=== PATIENT | male | born 1960 | race Caucasian/White ===

== ENCOUNTER 2022-08-25 14:18 | Outpatient (CLI) | payer MEDICARE, SELFPAY ==
--- OUTSIDE RECORDS SUMMARY | 2022-08-25 14:23 | XMS_ITS | Encounter Summary ---
:1960 Author Organization [place] Address [address] [facility] [place] [address] Care Team Providers Name Role Phone Sammie Salguero Unavailable [phone] Guru Perry Conrad MD Unavailable + Melissa Waite PA-C Primary Care Provider [phone] Pee Ch MD Unavailable Encounter Details Date Type Department Care Team Description 11/29/2021 Travel Social History Tobacco Use Types Packs/Day Years Used Date Current Every Day Smoker 1 28 Smokeless Tobacco: Never Used Alcohol Use Standard Drinks/Week Comments Yes 1.7 (1 standard drink = 0.6 oz pure alco hol) Sex Assigned at Date Recorded Not on file COVID-19 Exposure Response Date Recorded In the last month, have you been in contact with No / Unsure 11/29/2021 9:40 AM 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 documented as of this encounter Plan of Treatment Not on filedocumented as of this encounter Visit Diagnoses Not on filedocumented in this encounter Care Teams Steam Generating Powerplant Mechanic Relationship Specialty Start Date End Date Melissa Waite, PCP - General Physician Business Taxes Specialist 10/26/21 [facility] [address] [place] [address] Sammie Salguero Referring Physician 10/16/16 [place] [address] [place] [address] Guru BRITNEY Conrad Gastroenterology 10/16/16 Perry Rasmussen MD [address] [place], [place] [id number] Pee Ch MD Assigned Pulmonology 11/27/21 04/14/[address] [place] [address] [id number] documented as of this encounter
--- OUTSIDE RECORDS SUMMARY | 2022-08-25 14:23 | XMS_ITS ---
:1960 Author Care Team Providers Name Role Phone LAUREN PHILIP [facility] Primary Care Provider [phone] Allergies Code Code System Name Reaction Severity Status Onset NKDA ? Medications Name Status Start Date Stop Date ? ? atenolol 25 mg tablet Active ? Not availa ble Breo Ellipta 100 mcg-25 mcg/dose powder for inhalation Active ? Not available Creon 24,000-76,000-120,000 unit capsule,delayed release Active ? Not available Incruse Ellipta 62.5 mcg/actuation powder for inhalation Active ? Not available levofloxacin 500 mg tablet Active ? Not a vailable lisinopril 20 mg tablet Active ? Not avai lable ondansetron 4 mg disintegrating tablet Active ? Not available oxycodone 5 mg tablet Active ? Not availa ble oxycodone-acetaminophen 5 mg-325 mg tablet Active ? Not available tamsulosin 0.4 mg capsule Active ? Not av ailable TAKE 1 CAPSULE BY MOUTH EVERY DAY Ventolin HFA 90 mcg/actuation aerosol inhaler Active ? Not available Problems None recorded. Procedures None recorded. Results Lab Results None recorded. Past Encounters None recorded. Social History Tobacco Smoking Status Current Every Day Smoker Vaccine List None recorded. Plan of Care Reminders Provider Appointments None recorded. ? ? Lab None recorded. ? ? Referral None recorded. ? ? Procedures None recorded. ? ? Surgeries None recorded. ? ? Imaging None recorded. ? ? Vitals 07/07/2020 09:50AM ESTABLISHED 20 Height Weight BMI 5 ft 8 in 97 lbs 14.7 kg/m2 06/08/2020 03:30PM ESTABLISHED PHONE VISIT 20 Height Weight BMI 5 ft 8 in 97 lbs 14.7 kg/m2
--- OUTSIDE RECORDS SUMMARY | 2022-08-25 14:23 | XMS_ITS | Encounter Summary ---
:1960 Author Organization [place] Address [address] [facility] [place] [address] Care Team Providers Name Role Phone [facility] Unavailable [phone] Guru Perry Conrad MD Unavailable + Melissa Waite PA-C Primary Care Provider Encounter Details Date Type Department Care Team Description 07/05/2022 Travel Social History Tobacco Use Types Packs/Day Years Used Date Current Every Day Smoker 1 28 Smokeless Tobacco: Never Used Alcohol Use Standard Drinks/Week Comments Yes 1.7 (1 standard drink = 0.6 oz pure alco hol) Sex Assigned at Date Recorded Not on file COVID-19 Exposure Response Date Recorded In the last 10 days, have you been in contact with No / Unsu re 07/05/2022 9:09 AM CDT someone who was confirmed or suspected to have Coronavirus/COVID-19? documented as of this encounter Plan of Treatment Not on filedocumented as of this encounter Visit Diagnoses Not on filedocumented in this encounter Care Teams Technical Sales Engineer Relationship Specialty Start Date End Date Melissa Waite, PCP - General Physician Suede Cleaner 10/26/21 [facility] [address] [place] [address] [facility] Referring Physician 10/16/16 [address] [place] [address] Guru BRITNEY Conrad Gastroenterology 10/16/16 Perry Rasmussen MD [address] [place] [id number] documented as of this encounter
--- OUTSIDE RECORDS SUMMARY | 2022-08-25 14:23 | XMS_ITS | Encounter Summary ---
:1960 Author Organization [place] Address [address] [facility] [place] [address] Care Team Providers Name Role Phone [facility], Manuelkatherine Palermo Unavailable [phone] Guru Perry Conrad MD Unavailable + Melissa Waite PA-C Primary Care Provider Pee Ch MD Unavailable Reason for Referral Diagnostic Imaging CT Scan (Routine) - Closed Specialty Diagnoses / Procedures Referred By Contact Refer red To Contact Diagnoses Hydropneumothorax Pee Ch MD Procedures CT Chest w/o Contrast [address] [place], [place] [address] Referral ID Status Reason Start Date Expiration Date Visits Requ ested Visits Authorized [id number] Closed 11/23/2021 11/23/2022 1 1 MAKER Reason for Visit Diagnostic Imaging CT Scan (Routine) - Closed Specialty Diagnoses / Procedures Referred By Contact Refer red To Contact Diagnoses Hydropneumothorax Pee Ch MD Procedures CT Chest w/o Contrast [address] [place], [place] [address] Referral ID Status Reason Start Date Expiration Date Visits Requ ested Visits Authorized [id number] Closed 11/23/2021 11/23/2022 1 1 Encounter Details Date Type Department Care Team Description 11/29/[address] 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 documented as of this encounter Medications at Time of Discharge Medication Sig Dispensed Refills Start Date End Date albuterol (PROAIR Inhale 2 puffs into 0 HFA/PROVENTIL the lungs every 6 HFA/VENTOLIN HFA) 108 (90 hours as needed for Base) MCG/ACT inhaler shortness of breath / dyspnea or wheezing aspirin (ASA) 325 MG EC Take 325 mg by mouth 0 tablet daily atenolol (TENORMIN) 25 MG Take 25 mg by mouth 0 tablet daily (with dinner) Lhotpmbyule-Oqsjdelga-Twr Inhale 1 puff into the 0 anterol (TRELEGY ELLIPTA) lungs At Bedtime 100-62.5-25 MCG/INH oral inhaler lisinopril (ZESTRIL) 20 Take 20 mg by mouth 0 MG tablet daily (with dinner) multivitamin w/minerals Take 1 tablet by mouth 0 04/23/2020 (THERA-VIT-M) daily tabletIndications: Alcohol-induced acute pancreatitis without infection or necrosis tamsulosin (FLOMAX) 0.4 Take 0.4 mg by mouth 0 MG capsule At Bedtime documented as of this encounter Plan of Treatment Not on filedocumented as of this encounter Procedures Procedure Name Priority Date/Time Associated Diagnosis Comme nts CT CHEST W/O Routine 11/29/2021 9:54 AM Hydropneumothorax Resu lts for this CONTRAST LAP MAKER procedure are i n the results section. documented in this encounter Results CT Chest w/o Contrast (11/29/2021 9:54 AM LAP MAKER) Anatomical Region Laterality Modality Chest, SUBRAD CT BODY, UMP CT CHEST, RAD CT Computed Tomography Specimen (Source) Anatomical Location Collection Method / Collectio n Time Received Time / Laterality Volume Impressions 11/29/2021 11:21 AM LAP MAKER IMPRESSION: 1. ??Small right hydropneumothorax is no norm, smaller in volume. 2. ??Continued prominent aspiration and mucus impaction leading to the right lung base. 3. ??Rounded opacity at the right lower lobe could be rounded atelectasis but underlying focal airspac e disease not excluded. There is also stable nodular opacification at the lingula and an irregular stable nodule at the right upper lobe. N eoplasm is not excluded. Recommend follow-up CT chest in 3 months . 4. ??Emphysema. 5. ??Included upper abdominal images cristiano ws the new finding of a subcapsular cystic collection along the anterior left liver. Adjacent to the left liver at the upper abdomen i s an indeterminant complex focal structure that could be complex fl uid versus an abnormal mass. CT abdomen could provide further assessm ent, ideally with intravenous contrast if able. VARSHA VARGHESE MD Narrative 11/29/2021 11:[address] CHEST WITHOUT CONTRAST 11/29/2021 9:54 AM CLINICAL HISTORY: COPD, surveillance; Hy dropneumothorax. TECHNIQUE: CT chest without IV contrast. Multiplanar reformats were obtained. Dose reduction techniques were used. CONTRAST: None. COMPARISON: CT chest 10/26/2021. FINDINGS: LUNGS AND PLEURA: Previously noted right pneumothorax persists but is smaller in volume. A few bubbles of righ t-sided pleural gas persists. Small right pleural fluid is smaller in volume. No left effusion. No left pneumothorax. Diffuse emphysema. Se carmen aspiration with mucus impaction again identified leading to th e right lung base. Rounded opacity may be rounded atelectasis versu s focal consolidation posterior medial right lower lobe measur ing 3.2 cm series 4 image 224. Stable mildly irregular nodule right upp er lobe measuring 0.6 cm series 4 image 62. A nodular opacity james ng the medial lingular area is stable measuring 2.2 cm series 4 image 2 14. MEDIASTINUM/AXILLAE: No acute thoracic a ortic abnormality. Moderate thoracic aortic calcifications. No suspi cious lymph nodes can be seen at unenhanced scanning. CORONARY ARTERY CALCIFICATION: Severe. UPPER ABDOMEN: Small ascites. There is a new subcapsular cystic structure along the anterior left liver measuring 3.1 cm series 3 image 152. Just towards the left of this , adjacent to the left liver is mildly increased density indeterminan t collection that is approximately 5.1 cm series 3 image 153. Pancreas calcifications noted. MUSCULOSKELETAL: No acute abnormality. T here are subacute healed rib fractures. Procedure Note Varsha Varghese MD - 11/29/2021Forma tting of this note might be different from the original. CT CHEST WITHOUT CONTRAST 11/29/2021 9:54 AM CLINICAL HISTORY: COPD, surveillance; Hy dropneumothorax. TECHNIQUE: CT chest without IV contrast. Multiplanar reformats were obtained. Dose reduction techniques were used. CONTRAST: None. COMPARISON: CT chest 10/26/2021. FINDINGS: LUNGS AND PLEURA: Previously noted right pneumothorax persists but is smaller in volume. A few bubbles of righ t-sided pleural gas persists. Small right pleural fluid is smaller in volume. No left effusion. No left pneumothorax. Diffuse emphysema. Se carmen aspiration with mucus impaction again identified leading to th e right lung base. Rounded opacity may be rounded atelectasis versu s focal consolidation posterior medial right lower lobe measur ing 3.2 cm series 4 image 224. Stable mildly irregular nodule right upp er lobe measuring 0.6 cm series 4 image 62. A nodular opacity james ng the medial lingular area is stable measuring 2.2 cm series 4 image 2 14. MEDIASTINUM/AXILLAE: No acute thoracic a ortic abnormality. Moderate thoracic aortic calcifications. No suspi cious lymph nodes can be seen at unenhanced scanning. CORONARY ARTERY CALCIFICATION: Severe. UPPER ABDOMEN: Small ascites. There is a new subcapsular cystic structure along the anterior left liver measuring 3.1 cm series 3 image 152. Just towards the left of this , adjacent to the left liver is mildly increased density indeterminan t collection that is approximately 5.1 cm series 3 image 153. Pancreas calcifications noted. MUSCULOSKELETAL: No acute abnormality. T here are subacute healed rib fractures. IMPRESSION: 1. Small right hydropneumothorax is note d, smaller in volume. 2. Continued prominent aspiration and mu cus impaction leading to the right lung base. 3. Rounded opacity at the right lower lo be could be rounded atelectasis but underlying focal airspac e disease not excluded. There is also stable nodular opacification at the lingula and an irregular stable nodule at the right upper lobe. N eoplasm is not excluded. Recommend follow-up CT chest in 3 months . 4. Emphysema. 5. Included upper abdominal images shows the new finding of a subcapsular cystic collection along the anterior left liver. Adjacent to the left liver at the upper abdomen i s an indeterminant complex focal structure that could be complex fl uid versus an abnormal mass. CT abdomen could provide further assessm ent, ideally with intravenous contrast if able. VARSHA VARGHESE MD Pee Ch MD IMG CT ORDERABLES documented in this encounter Visit Diagnoses Diagnosis Hydropneumothorax Other specified forms of effusion, excep t tuberculous documented in this encounter Care Teams Chrome Plater Relationship Specialty Start Date End Date Melissa Waite, PCP - General Physician Side Hemmer 10/26/21 [facility] [address] [place] [address] Sammie Salguero Referring Physician 10/16/16 [place] [address] [place] [address] Guru BRITNEY Conrad Gastroenterology 10/16/16 Perry Rasmussen MD [address] [place] [address] [id number] Pee Ch MD Assigned Pulmonology 11/27/21 04/14/[address] [place] [address] [phone] documented as of this encounter
--- OUTSIDE RECORDS SUMMARY | 2022-08-25 14:23 | XMS_ITS | Clinical Summary ---
:1960 Author Organization [facility] [place] [address] Care Team Providers Name Role Phone Denia Paige MD Unavailable Pcp, No Primary Care Provider Unavailable Allergies No known active allergies Medications Medication Sig Dispensed Refills Start Date End Date Status aspirin enteric coated Take 1 tablet by 0 04/19/2011 Active 81 mg tablet mouth once daily with a meal. albuterol HFA Inhale 1-2 Puffs 1 Inhaler 1 07/28/2015 Active (VENTOLIN HFA) 90 by mouth every 4 mcg/actuation hours if needed. inhalerIndications: COPD exacerbation (HC) albuterol-ipratropium Inhale 3 mL via a 1 box 5 10/29/2015 Active (DUONEB) (2.5-0.5 mg) nebulizer every 6 in 3 mL NEBULIZATION hours if needed solutionIndications: for Wheezing. Chronic obstructive Patient will call pulmonary disease, when he needs unspecified COPD type refills (HC) umeclidinium (INCRUSE Inhale 62.5 mcg by 30 Each 5 5 Active ELLIPTA) 62.5 mouth once daily. mcg/actuation Patient will call dsdvIndications: when he needs Chronic obstructive refills pulmonary disease, unspecified COPD type (HC) ibuprofen (ADVIL; Take 200-400 mg by 0 09/18/2016 Active MOTRIN) 200 mg tablet mouth every 6 hours if needed. Multivits,Ca,Minerals- Take 1 tablet by 0 09/18/2016 Active Iron-FA (THERA M PLUS, mouth once daily. FERROUS FUMARAT,) 9 mg iron-400 mcg tablet nicotine 21 mg/24 hr Apply 1 Patch on 0 Active (NICODERM; HABITROL) dry, clean, 21 mg/24 hr patch hairless skin every 24 hours. Thiamine HCl powd Take 100 mg by 0 Active mouth once daily. fluticasone Inhale 1 Puff by 0 A ctive furoate-vilanterol mouth once daily. (BREO ELLIPTA) 100-25 mcg/dose inhaler Cholecalciferol, Take 1,000 Units 0 Active Vitamin D3, 400 unit by mouth once capsule daily. magnesium oxide Take 1 tablet by 90 tablet 3 11/01/2016 Active (MAG-OX 400) 400 mg mouth once daily. tabletIndications: Visit for well marlin health check CREON 24,000-76,000 0 12/01/2016 Active -120,000 unit Delayed-Release capsule VITAMIN D 1,000 unit TAKE ONE TABLET BY 90 tablet 2 04/04/2018 Active tabletIndications: MOUTH EVERY DAY Vitamin D deficiency atenoloL (TENORMIN) 25 TAKE 1 TABLET BY 30 tablet 0 11/25/2020 Active mg tabletIndications: MOUTH EVERY DAY Essential hypertension lisinopriL (PRINIVIL; TAKE 1 TABLET BY 30 tablet 0 11/25/2020 Active ZESTRIL) 20 mg MOUTH EVERY DAY tabletIndications: Essential hypertension Active Problems Problem Noted Date Vitamin D deficiency 10/09/2014 Stroke 04/19/2013 Overview: Residual effects on R side COPD exacerbation 02/15/2012 Overview: Followed by pulmonary Tobacco use disorder 04/20/2009 HYPERTENSION - ESSENTIAL 11/16/2005 TORTICOLLIS 11/16/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 Resolved Problems Problem Noted Date Resolved Date Alcohol use 04/20/2009 10/09/2016 Immunizations Name Administration Dates Next Due COVID-19 vaccine (Moderna 03/23/2021, 02/23/2021 100mcg/0.5mL) PF, MDV COVID-19 vaccine (Moderna Booster 11/15/2021 50mcg/0.25mL) PF, MDV Influenza, IIV3 (Age >=3 years) 09/08/2016 Influenza, IIV4 10/29/2019, 01/31/2018, 10/07/2015, 10/08/2014 Pneumococcal Poly,23-Valent 08/26/2016 (Pneumovax) Tdap 03/11/2013 Family History Medical History Relation Name Comments Other Father lung cancer Hypertension Mother Other Mother dementia Genetic Other Sister breast ca Cancer-breast Sister Relation Name Status Comments Father Mother Alive Other Sister Alive Social History Tobacco Use Types Packs/Day Years Used Date Current Every Day Smoker 0.5 37 Sta rted: 11/19/1980 Smokeless Tobacco: Never Used Tobacco Cessation: Ready to Quit: No; Co unseling Given: Yes Comments: using gum 05/21 down to less laury n 10 cigs a day. Alcohol Use Standard Drinks/Week Comments No 0 (1 standard drink = 0.6 oz pure alcoho l) Sex Assigned at Date Recorded Not on file Obstetrics History Last Filed Vital Signs Vital Sign Reading Time Taken Comments Blood Pressure 168/96 10/29/2019 10:52 AM LOCAL TELEPHONE OPERATOR Pulse 82 10/29/2019 10:36 AM LOCAL TELEPHONE OPERATOR Temperature 36.7 ??C (98 ??F) 05/21/2013 8:54 AM CDT Respiratory Rate 28 04/01/2013 2:26 PM CDT Oxygen Saturation 95% 10/29/2015 8:55 AM LOCAL TELEPHONE OPERATOR Inhaled Oxygen Concentration - - Weight 49.9 kg (110 lb) 10/29/2019 10:36 AM LOCAL TELEPHONE OPERATOR Height 175.3 cm (5' 9.02) 10/29/2019 10:36 AM LOCAL TELEPHONE OPERATOR Body Mass Index 16.24 10/29/2019 10:36 AM LOCAL TELEPHONE OPERATOR Plan of Treatment Health Maintenance Due Date Last Done Comments Hepatitis C screening for age 0201/16/1978 18-79 Colonoscopy through age 75 2005 Zoster (shingles) series for age 0201/16/2010 50+ (1 of 2) BMI (ht and wt on same day) for 10/29/2020 10/29/2019, 03/20, age 18+ 01/31/2018, Additional history exists Depression screening for age 12+ 10/29/2020 10/29/2019, COVID-19 vaccine series (4 - 03/16/2022 11/15/2021, 021, Booster for Moderna series) 02/23/2021 Influenza for age 50-64 07/20/2022 10/29/2019, 01/31/2018, 09/08/2016, Additional history exists Tetanus booster 03/11/2023 03/11/2013 Lipids for age 45-75 10/29/2024 10/29/2019, 01/31/2018, 10/08/2014, Additional history exists Tdap Completed 03/11/2013 Results Not on filefrom Last 3 Months Insurance Payer Benefit Plan / Subscriber ID Effective Dates Phone Addre ss Type Group MEDICARE - PB MEDICARE PB [id number] 2015-Presen ATT N: CLAIMS USE ONLY ONLY t [address] [place] [address] Care Teams Glass Lined Tank Repairer Relationship Specialty Start Date End Date Pcp, No PCP - General 02/14/21 . Denia Paige MD Pulmonary Medicine 03/11/13
--- OUTSIDE RECORDS SUMMARY | 2022-08-25 14:23 | XMS_ITS | Encounter Summary ---
:1960 Author Organization [place] Address [address] [facility] [place] [address] Care Team Providers Name Role Phone Clinic, Sammie Geyser Unavailable [phone] Guru Perry Conrad MD Unavailable + Melissa Waite PA-C Primary Care Provider [phone] Reason for Referral Diagnostic Imaging CT Scan (Routine) - Closed Specialty Diagnoses / Procedures Referred By Contact Refer red To Contact Diagnoses Cigarette nicotine dependence without complication Other specified pleural conditions Other nonspecific abnormal finding of lung field Steven Mathew MD Procedures CT Chest w/o Contrast [facility] [address] [address] Referral ID Status Reason Start Date Expiration Date Visits Requ ested Visits Authorized [id number] Closed 06/26/2022 06/26/2023 1 1 Reason for Visit Diagnostic Imaging CT Scan (Routine) - Closed Specialty Diagnoses / Procedures Referred By Contact Refer red To Contact Diagnoses Cigarette nicotine dependence without complication Other specified pleural conditions Other nonspecific abnormal finding of lung field Steven Mathew MD Procedures CT Chest w/o Contrast [address] [address] Referral ID Status Reason Start Date Expiration Date Visits Requ ested Visits Authorized [id number] Closed 06/26/2022 06/26/2023 1 1 Encounter Details Date Type Department Care Team Description 07/05/[address] [facility] Steven Mathew nicotine dependence without complication; Jaguar Hawkins MD Other specified pleural conditions; [id number] [facility] L[facility]G [facility] Other nonspecific abnormal finding of vince ng field [address] [place] [address] [place], [place] [phone] [address] Social History Tobacco Use Types Packs/Day Years [...] have Coronavirus/COVID-19? documented as of this encounter Medications at [...] by mouth 0 tablet daily (with dinner) Yhtwpymsgal-Xjwlijxtr-Sjb Inhale 1 puff into the 0 anterol [...] Diagnosis Comme nts CT CHEST W/O Routine 07/05/2022 9:32 AM Cigarette nicotine Res ults for this CONTRAST CDT dependence without procedure are in complication the results Other specified section. pleural conditio ns Other nonspecific abnormal finding of lung field documented in this encounter Results CT Chest w/o Contrast (07/05/2022 9:32 AM CDT) Anatomical Region Laterality Modality Chest, SUBRAD CT BODY, UMP CT CHEST, RAD CT Computed Tomography Specimen (Source) Anatomical Location Collection Method / Collectio n Time Received Time / Laterality Volume Impressions 07/05/2022 9:59 AM CDT IMPRESSION: 1. ??New left apical nodular opacity robert suring 13 x 8 mm, indeterminate. Other pulmonary nodular o pacities are stable. Right lower lobe rounded opacity, which may be in a focus of rounded atelectasis is stable. A follow-up CT in 3 months is suggested to ensure stability. 2. ??Decreased now trace right pleural e ffusion. UMA PETERS MD Narrative 07/05/2022 9:[address] CHEST W/O CONTRAST 07/05/2022 9:32 AM CLINICAL HISTORY: Cigarette nicotine dep endence without complication; Other specified pleural conditions; Othe r nonspecific abnormal finding of lung field TECHNIQUE: CT chest without IV contrast. Multiplanar reformats were obtained. Dose reduction techniques were used. CONTRAST: None. COMPARISON: 10/26/2021, 11/29/2020 FINDINGS: LUNGS AND PLEURA: Moderate to severe stephen trilobular emphysema with bullous changes in the left lower lobe a t the lung base. New left apical spiculated nodular opacity measur ing 13 x 8 mm (series 6, image 29). Stable right upper lobe 7 mm irregu lar nodular opacity (image 52). Extensive secretions and bronchial mucous plugging in the right middle lobe and right lower lobe at the lung base. Adjacent rounded pleural-based opacity with crowding of b ronchi leading to the opacity and architectural distortion is stable, measuring 30 x 20 mm (series 6, image 232), previously 32 x 32 mm on 11/29/2021. This focus may be an area of rounded atelectasis. Stable l eft upper lobe 31 x 13 mm linear area of consolidation and volume loss, previously measuring 28 x 14 mm (series 6, image 227). Trace res idual right pleural effusion, decreased since 11/29/2021. MEDIASTINUM/AXILLAE: No lymphadenopathy. Stable upper normal size of the ascending thoracic aorta measuring 4 .0 cm. Coronary artery stents. No pericardial effusion. UPPER ABDOMEN: Partly visualized calcifi cations in the pancreas consistent with chronic pancreatitis. MUSCULOSKELETAL: Old left-sided rib frac tures. Degenerative changes in the spine. No suspicious lesions in the bones. Procedure Note Uma Peters MD - 07/05/2022 CT CHEST W/O CONTRAST 07/05/2022 9:32 AM CLINICAL HISTORY: Cigarette nicotine dep endence without complication; Other specified pleural conditions; Othe r nonspecific abnormal finding of lung field TECHNIQUE: CT chest without IV contrast. Multiplanar reformats were obtained. Dose reduction techniques were used. CONTRAST: None. COMPARISON: 10/26/2021, 11/29/2020 FINDINGS: LUNGS AND PLEURA: Moderate to severe stephen trilobular emphysema with bullous changes in the left lower lobe a t the lung base. New left apical spiculated nodular opacity measur ing 13 x 8 mm (series 6, image 29). Stable right upper lobe 7 mm irregu lar nodular opacity (image 52). Extensive secretions and bronchial mucous plugging in the right middle lobe and right lower lobe at the lung base. Adjacent rounded pleural-based opacity with crowding of b ronchi leading to the opacity and architectural distortion is stable, measuring 30 x 20 mm (series 6, image 232), previously 32 x 32 mm on 11/29/2021. This focus may be an area of rounded atelectasis. Stable l eft upper lobe 31 x 13 mm linear area of consolidation and volume loss, previously measuring 28 x 14 mm (series 6, image 227). Trace res idual right pleural effusion, decreased since 11/29/2021. MEDIASTINUM/AXILLAE: No lymphadenopathy. Stable upper normal size of the ascending thoracic aorta measuring 4 .0 cm. Coronary artery stents. No pericardial effusion. UPPER ABDOMEN: Partly visualized calcifi cations in the pancreas consistent with chronic pancreatitis. MUSCULOSKELETAL: Old left-sided rib frac tures. Degenerative changes in the spine. No suspicious lesions in the bones. IMPRESSION: 1. New left apical nodular opacity measu ring 13 x 8 mm, indeterminate. Other pulmonary nodular o pacities are stable. Right lower lobe rounded opacity, which may be in a focus of rounded atelectasis is stable. A follow-up CT in 3 months is suggested to ensure stability. 2. Decreased now trace right pleural eff usion. UMA PETERS MD Steven Mathew MD IMG CT ORDERABLES documented in this encounter Visit Diagnoses Diagnosis Cigarette nicotine dependence without co mplication Tobacco use disorder Other specified pleural conditions Other nonspecific abnormal finding of vince ng field documented in this encounter Care Teams Modular Home Crew Member Relationship Specialty Start Date End Date Melissa Waite, PCP - General Physician Director Of Corporate Real Estate 10/26/21 [facility] [address] [place] [address] [facility] Referring Physician 10/16/16 [address] [place] [address] Guru BRITNEY Conrad Gastroenterology 10/16/16 Perry Rasmussen MD [address] [place] [address] documented as of this encounter
--- OUTSIDE RECORDS SUMMARY | 2022-08-25 14:23 | XMS_ITS | Clinical Summary ---
:1960 Author Organization [place] Address [address] [facility] [place] [address] Care Team Providers Name Role Phone [facility], Manuelkatherine Deeth Unavailable [phone] Guru Perry Conrad MD Unavailable + Melissa Waite PA-C Primary Care Provider Pee Ch MD Unavailable Allergies No known active allergies Medications Medication Sig Dispensed Refills Start Date End Date Status aspirin (ASA) 325 MG Take 325 mg by 0 Active EC tablet mouth daily atenolol (TENORMIN) 25 Take 25 mg by 0 Active MG tablet mouth daily (with dinner) lisinopril (ZESTRIL) Take 20 mg by 0 Active 20 MG tablet mouth daily (with dinner) multivitamin Take 1 tablet by 0 04/23/2020 Active w/minerals mouth daily (THERA-VIT-M) tabletIndications: Alcohol-induced acute pancreatitis without infection or necrosis tamsulosin (FLOMAX) Take 0.4 mg by 0 Active 0.4 MG capsule mouth At Bedtime Fluticasone-Umeclidin- Inhale 1 puff into 0 Active Vilanterol (TRELEGY the lungs At ELLIPTA) 100-62.5-25 Bedtime MCG/INH oral inhaler albuterol (PROAIR Inhale 2 puffs 0 Active HFA/PROVENTIL into the lungs HFA/VENTOLIN HFA) 108 every 6 hours as (90 Base) MCG/ACT needed for inhaler shortness of breath / dyspnea or wheezing Active Problems Problem Noted Date Hydropneumothorax 10/26/2021 Alcohol withdrawal, uncomplicated 04/01/2018 Pancreatitis 03/27/2018 Neck and shoulder pain 09/21/2016 Candidemia 09/21/2016 Hypocalcemia 09/21/2016 Chronic alcohol abuse 09/21/2016 COPD (chronic obstructive pulmonary disease) 6 Severe malnutrition 09/21/2016 Tobacco use disorder 09/21/2016 Alcohol-induced acute pancreatitis without infection o r necrosis 08/25/2016 Acute pancreatitis 08/25/2016 Pneumonia 11/05/2015 Sepsis due to pneumonia 04/28/2015 Encounters Date Type Specialty Care Team Description 07/05/2022 Hospital Encounter Radiology. Steven Mathew MD Cigarette nicotine dependence without complication; Other specified pleural conditions; Other nonspecif ic abnormal finding of lung field 07/05/2022 Travel from Last 3 Months Immunizations Name Administration Dates Next Due Influenza Vaccine IM > 6 months Valent IIV4 08/26/2016 (Alfuria,Fluzone) Pneumococcal 23 valent 08/26/2016 Family History Medical History Relation Comments Cancer Father Cancer Sister Relation Status Comments Father Sister Social History Tobacco Use Types Packs/Day Years Used Date Current Every Day Smoker 1 28 Smokeless Tobacco: Never Used Tobacco Cessation: Ready to Quit: Yes Alcohol Use Standard Drinks/Week Comments Yes 1.7 (1 standard drink = 0.6 oz pure alco hol) Sex Assigned at Date Recorded Not on file Last Filed Vital Signs Vital Sign Reading Time Taken Comments Blood Pressure 114/72 10/28/2021 8:16 AM SERVICENOW ADMINISTRATOR DEVELOPER Pulse 76 10/28/2021 8:16 AM SERVICENOW ADMINISTRATOR DEVELOPER Temperature 36.8 ??C (98.2 ??F) 10/28/2021 8:16 AM SERVICENOW ADMINISTRATOR DEVELOPER Respiratory Rate 18 10/28/2021 8:16 AM SERVICENOW ADMINISTRATOR DEVELOPER Oxygen Saturation 93% 10/28/2021 8:16 AM SERVICENOW ADMINISTRATOR DEVELOPER Inhaled Oxygen Concentration - - Weight 44.4 kg (97 lb 14.4 oz) 10/27/2021 8:39 AM SERVICENOW ADMINISTRATOR DEVELOPER Height 172.7 cm (5' 8) 10/26/2021 5:31 PM SERVICENOW ADMINISTRATOR DEVELOPER Body Mass Index 14.89 10/26/2021 5:31 PM SERVICENOW ADMINISTRATOR DEVELOPER Plan of Treatment Health Maintenance Due Date Last Done Comments ADVANCE CARE PLANNING 1960 ANNUAL REVIEW OF HM ORDERS 1960 COPD ACTION PLAN [address] CT COLONOGRAPHY 1960 FIT-DNA (Cologuard) 1960 FIT 1960 FLEX SIG 1960 NICOTINE/TOBACCO CESSATION 1960 COUNSELING Q 1 YR COLONOSCOPY 1970 COLORECTAL CANCER SCREENING 1970 HIV SCREENING 1975 HEPATITIS C SCREENING 1978 MEDICARE ANNUAL WELLNESS 1978 VISIT LIPID 1995 Pneumococcal Vaccine: 08/26/2017 08/26/2016, 08/25/2012 Pediatrics (0 to 5 Years) and At-Risk Patients (6 to 64 Years) (2 - PCV) PHQ-2 (once per calendar 11/19/2021 year) ZOSTER IMMUNIZATION (3 of 11/30/2021 10/05/2021, 03/11/2013 3) COVID-19 Vaccine (4 - 01/10/2022 11/15/2021, 03/23/2021, Booster for Moderna series) 02/23/2021 INFLUENZA VACCINE (#1) 2022 10/05/2021, 10/05/2021, 12/03/2020, Additional history exists DTAP/TDAP/TD IMMUNIZATION 03/11/2023 03/11/2013 (2 - Td or Tdap) LUNG CANCER SCREENING 07/05/2023 07/05/2022, 11/29/2021, 10/26/2021, Additional history exists SPIROMETRY Completed 06/06/2019, 06/06/2019, 06/06/2019, Additional history exists HEPATITIS B IMMUNIZATION Aged Out No long er eligible based on patient 's age to complete this topic IPV IMMUNIZATION Aged Out No longer eligi ble based on patient 's age to complete this topic MENINGITIS IMMUNIZATION Aged Out No longe r eligible based on patient 's age to complete this topic Procedures Procedure Name Priority Date/Time Associated Diagnosis Comme nts CT CHEST W/O Routine 07/05/2022 9:32 AM Cigarette nicotine Res ults for this CONTRAST CDT dependence without procedure are in complication the results Other specified section. pleural conditio ns Other nonspecific abnormal finding of lung field from Last [address] Chest w/o Contrast (07/05/2022 9:32 [...] MD Steven Mathew MD IMG CT ORDERABLES from Last 3 Months Insurance Payer Benefit Plan / Subscriber ID Effective Dates Phone Addre ss Type Group MEDICARE MEDICARE [id number] 2015-Melanie [phone] ATTN CL AIMS Medicare nt 0 [address] [place] [address] Hay Gutierrez Personal/Family Self 1960 [id number]) [address] none (Work) [place] [id number] Hay Gutierrez Behavioral Self 1960 [phone] [id number] [address] (Home) [place] [address] Advance Directives For more information, please contact: [phone] Latest Code Status on File Code Status Date Activated Date Inactivated Comments Full Code 10/28/2021 8:26 AM Code status determined by: Discussion with patient/ legal de cision maker Full Code 10/26/2021 5:12 PM 10/28/2021 8:26 AM All basic a nd advanced life-sustaining interventions ar e performed as appropriate Code status determined by: Discussion with patient/ legal de cision maker Full Code 04/16/2020 6:15 PM 04/22/2020 4:10 PM Code status determined by: Discussion with patient/legal dec ision maker Full Code 11/21/2018 10:11 AM 04/16/2020 11:29 AM Code status determined by: Discussion with patient/legal dec ision maker Full Code 11/18/2018 3:56 PM 11/21/2018 10:11 AM Code status determined by: Other (please document) Care Teams Equity Holder Relationship Specialty Start Date End Date Melissa Waite, PCP - General Physician Tailor Women'S Garment Alteration 10/26/[address] [facility] [address] [place] [address] Clinic, [facility] Referring Physician 10/16/16 [place] [address] [place] [address] Guru BRITNEY Conrad Gastroenterology 10/16/16 Perry Rasmussen MD [address] [place] [address] Pee Ch MD Assigned Pulmonology 07/22/[address] [place] [address]
--- OUTSIDE RECORDS SUMMARY | 2022-08-25 14:24 | XMS_ITS | Encounter Summary ---
:1960 Author Organization [place] Address [address] [facility] [place] [address] Care Team Providers Name Role Phone Clinic, Manuelkatherine Colgate Unavailable [phone] Guru Perry Conrad MD Unavailable + Melissa Waite PA-C Primary Care Provider [phone] Encounter Details Date Type Department Care Team Description 11/08/2021 Documentation Only [facility] Provider, Generic [facility] External Data [address] [place] [address] Social History Tobacco Use Types Packs/Day Years Used Date Current Every Day Smoker 1 28 Alcohol Use Standard Drinks/Week Comments Yes 1.7 (1 standard drink = 0.6 oz pure alco hol) Sex Assigned at Date Recorded Not on file COVID-19 Exposure Response Date Recorded In the last month, have you been in contact with No / Unsure 10/26/2021 9:56 AM DENT REMOVER someone who was confirmed or suspected to have Coronavirus / COVID-19? documented as of this encounter Progress Notes Muriel Pepper MA - 11/08/2021 2:55 PM CST Action November 08, 2021 2:56 PM ABT Action Taken Records from [facility] received and sent to HIM for upload. REMOVER documented in this encounter Plan of Treatment Not on filedocumented as of this encounter Visit Diagnoses Not on filedocumented in this encounter Care Teams Director Of Player Personnel Relationship Specialty Start Date End Date Melissa Waite, PCP - General Physician Director Post 10/26/21 [facility] [address] [place] [address] [facility] Referring Physician 10/16/16 [address] [place], [place] [id number] Guru BRITNEY Conrad Gastroenterology 10/16/16 Perry Rasmussen MD [address] [place] [address] documented as of this encounter
--- OUTSIDE RECORDS SUMMARY | 2022-08-25 14:24 | XMS_ITS | Encounter Summary ---
:1960 Author Organization [place] Address [address] [facility] [place] [address] Care Team Providers Name Role Phone [facility], Sammie Dunnigan Unavailable [phone] Guru Perry Conrad MD Unavailable + Melissa Waite PA-C Primary Care Provider Encounter Details Date Type Department Care Team Description 11/04/2021 Medical Correspondence [facility] Scan, CARDIOTHORACIC SURGERY Health Info Mgmt Non-Provider REFERRAL [place] [address] [address] Social History Tobacco Use Types Packs/Day Years Used Date Current Every Day Smoker 1 28 Alcohol Use Standard Drinks/Week Comments Yes 1.7 (1 standard drink = 0.6 oz pure alco hol) Sex Assigned at Date Recorded Not on file COVID-19 Exposure Response Date Recorded In the last month, have you been in contact with No / Unsure 10/26/2021 9:56 AM SHINGLE TRIMMER someone who was confirmed or suspected to have Coronavirus / COVID-19? documented as of this encounter Plan of Treatment Not on filedocumented as of this encounter Visit Diagnoses Not on filedocumented in this encounter Care Teams Social Sciences Research Scientist Relationship Specialty Start Date End Date Melissa Waite, PCP - General Physician Hand Bander 10/26/21 [facility] [address] [place] [address] Jose M, Sammie Dowell Referring Physician 10/16/16 [address] [place] [address] Guru BRITNEY Conrad Gastroenterology 10/16/16 Perry Rasmussen MD [address] [place], [place] [id number] documented as of this encounter
--- OUTSIDE RECORDS SUMMARY | 2022-08-25 14:24 | XMS_ITS | Encounter Summary ---
:1960 Author Organization [place] Address [address] [facility] [place] [address] Care Team Providers Name Role Phone [facility], Sammie [place] Unavailable Guru Perry Conrad MD Unavailable + Melissa Waite PA-C Primary Care Provider [phone] Reason for Visit Reason Onset Date Comments *-*INCOMING RECORDS*-* 11/22/2021 Hydropneumothorax [J94.8] Encounter Details Date Type Department Care Team Description 11/22/2021 PRE VISIT [facility] Pee Ch, *-*INC OMING RECORDS*-* [facility] Audrey stevenson MD (Hydropneumothorax [address] [facility] [address] [facility] [J94.8]) [place] [address] Social History Tobacco Use Types Packs/Day Years [...] with No / Unsure 10/26/2021 9:56 AM ORTHOTIC FINISH GRINDING TECHNICIAN someone who was confirmed or suspected to have Coronavirus / COVID-19? documented as of this encounter Miscellaneous Notes Telephone Encounter - Ismael Damico - 11/15/2021 8:05 AM CST RECORDS STATUS - ALL OTHER DIAGNOSIS RECORDS RECEIVED FROM: Mildred Romero DATE RECEIVED: 11/15 NOTES STATUS DETAILS OFFICE NOTE from referring provider [facility] 11/02/21 OFFICE NOTE from medical oncologist DISCHARGE SUMMARY from hospital [facility] 10/26/21 DISCHARGE REPORT from the ER OPERATIVE REPORT MEDICATION LIST CLINICAL TRIAL TREATMENTS TO DATE LABS PATHOLOGY REPORTS [facility] 10/26/21: Cytology ANYTHING RELATED TO DIAGNOSIS [facility] 10/28/21 GENONOMIC TESTING TYPE: IMAGING (NEED IMAGES & REPORT) XR PACS 10/27/21, 10/26/21: Epic CT SCANS PACS 10/26/21: [facility] MRI MAMMO ULTRASOUND PACS 10/26/21: [facility] PET OTIC FINISH GRINDING TECHNICIAN documented in this encounter Plan of Treatment Not on filedocumented as of this encounter Visit Diagnoses Not on filedocumented in this encounter Care Teams Brick Baker Relationship Specialty Start Date End Date Melissa Waite, PCP - General Physician Ticket Sorter 10/26/21 [facility] [address] [place] [address] Sammie Salguero [place] Referring Physician 10/16/16 [address] [place] [address] Guru BRITNEY Conrad Gastroenterology 10/16/16 Perry Rasmussen MD [address] [place] [address] documented as of this encounter
--- OUTSIDE RECORDS SUMMARY | 2022-08-25 14:24 | XMS_ITS | Encounter Summary ---
:1960 Author Organization [place] Address [address] [facility] [address] Care Team Providers Name Role Phone [facility], Sammie Rogers Unavailable [phone] Guru Perry Conrad MD Unavailable + Melissa Waite PA-C Primary Care Provider [phone] Reason for Visit Reason Comments Video Visit NEW Consultation (Routine) - Pending Review Specialty Diagnoses / Procedures Referred By Contact Refer red To Contact Medical Oncology Diagnoses Hydropneumothorax Generic External Data [facility] [address] [place] [address] Phone: Fax: Referral ID Status Reason Start Date Expiration Date Visits V isits Requested Authorized [id number] Pending 11/08/2021 11/08/2022 1 1 Review Encounter Details Date Type Department Care Team Description 11/22/2021 Virtual Visit [facility] Pee Ch, Wanda gibbs nodules [facility] Audrey stevenson MD (Primary Dx) [address] [place] [phone] [id number] Social History Tobacco Use Types Packs/Day Years Used Date Current Every Day Smoker 1 Smokeless Tobacco: Never Used Alcohol Use Standard Drinks/Week Comments Yes 1.7 (1 standard drink = 0.6 oz pure alco hol) Sex Assigned at Date Recorded Not on file COVID-19 Exposure Response Date Recorded In the last month, have you been in contact with No / Unsure 10/26/2021 9:56 AM VEHICLE SERVICE AGENT someone who was confirmed or suspected to have Coronavirus / COVID-19? documented as of this encounter Progress Notes Pee Ch MD - 11/22/2021 3:10 PM CST Rescheduled due to needing another CT chest CLE SERVICE AGENT documented in this encounter Plan of Treatment Scheduled Referrals Name Type Priority Associated Diagnoses Order S chedule Oncology/Hematology Adult Referral Routine Hydropneumothor ax Ordered: 11/08/2021 Referral documented as of this encounter Visit Diagnoses Diagnosis Pulmonary nodules - Primary Other nonspecific abnormal finding of vince ng field documented in this encounter Care Teams Senior Credit Analyst Relationship Specialty Start Date End Date Melissa Waite, PCP - General Physician Vp Talent Management 10/26/[address] [facility] [address] [place] [address] Sammie Salguero [place] Referring Physician 10/16/16 [address] [place] [address] Guru BRITNEY Conrad Gastroenterology 10/16/16 Perry Rasmussen MD [address] [place], [place] [address] documented as of this encounter
--- OUTSIDE RECORDS SUMMARY | 2022-08-25 14:24 | XMS_ITS | Encounter Summary ---
:1960 Author Organization [place] Address [address] [facility] [place] [address] Care Team Providers Name Role Phone [employer], Sammie [place] Unavailable [phone] Guru Perry Conrad MD Unavailable + Melissa Waite PA-C Primary Care Provider [phone] Reason for Referral Diagnostic Imaging CT Scan (Routine) - Closed Specialty Diagnoses / Procedures Referred By Contact Refer red To Contact Diagnoses Hydropneumothorax Pee Ch MD Procedures CT Chest w/o Contrast [address] [place] [address] [phone] 0 Referral ID Status Reason Start Date Expiration Date Visits Requ ested Visits Authorized [id number] Closed 11/23/2021 11/23/2022 1 1 EWATER DESIGN ENGINEER Encounter Details Date Type Department Care Team Description 11/23/2021 Orders Only [facility] Crystal Pederson Hydropneum othorax (Primary [facility] RN Dx) [address] [place] [address] Social History Tobacco Use Types [...] with No / Unsure 10/26/2021 9:56 AM WASTEWATER DESIGN ENGINEER someone who was confirmed or suspected to have Coronavirus / COVID-19? documented as of this encounter Plan of Treatment Not on filedocumented as of this encounter Results CT Chest w/o Contrast (11/29/2021 9:54 AM WASTEWATER DESIGN ENGINEER) Anatomical Region Laterality Modality Chest, SUBRAD CT BODY, UMP CT CHEST, RAD CT Computed Tomography Specimen (Source) Anatomical Location Collection Method / Collectio n Time Received Time / Laterality Volume Impressions 11/29/2021 11:21 AM WASTEWATER DESIGN ENGINEER IMPRESSION: 1. ??Small right hydropneumothorax is no [...] VARSHA VARGHESE MD Narrative 11/29/2021 11:21 AM WASTEWATER DESIGN ENGINEER CT CHEST WITHOUT CONTRAST 11/29/2021 9:54 AM [...] in this encounter Visit Diagnoses Diagnosis Hydropneumothorax - Primary Other specified forms of effusion, excep t tuberculous Hydropneumothorax Other specified forms of effusion, excep t tuberculous documented in this encounter Care Teams Beer Maker Relationship Specialty Start Date End Date Melissa Waite, PCP - General Physician Manager Human Resources 10/26/21 [facility] [address] [place] [address] [employer] [place]as[place] Referring Physician 10/16/16 [address] [place] [address] Guru BRITNEY Conrad Gastroenterology 10/16/16 Perry Rasmussen MD [address] [place] [address] documented as of this encounter
--- OUTSIDE RECORDS SUMMARY | 2022-08-25 14:24 | XMS_ITS | Encounter Summary ---
:1960 Author Organization [place] Address [address] [place] [address] Care Team Providers Name Role Phone Clinic, Manuelkatherine [place] Unavailable [phone] Guru Perry Conrad MD Unavailable + Melissa Waite PA-C Primary Care Provider [phone] Reason for Referral Consultation (Routine) - Pending Review Specialty Diagnoses / Procedures Referred By Contact Refer red To Contact Medical Oncology Diagnoses Hydropneumothorax Generic External Data Oncology Adult Department [address] [place] [address] Phone: Fax: Referral ID Status Reason Start Date Expiration Date Visits V isits Requested Authorized [id number] Pending 11/08/2021 11/08/2022 1 1 Review GRINDER Encounter Details Date Type Department Care Team Description 11/08/2021 Transcribe Orders GENERIC EXTERNAL Provider, Hydrop neumothorax DATA DEPARTMENT Generic (Primary Dx) External Data Social History Tobacco Use Types Packs/Day Years Used Date Current Every Day Smoker 1 28 Alcohol Use Standard Drinks/Week Comments Yes 1.7 (1 standard drink = 0.6 oz pure alco hol) Sex Assigned at Date Recorded Not on file COVID-19 Exposure Response Date Recorded In the last month, have you been in contact with No / Unsure 10/26/2021 9:56 AM GEAR GRINDER someone who was confirmed or suspected to have Coronavirus / COVID-19? documented as of this encounter Plan of Treatment Scheduled Referrals Name Type Priority Associated Diagnoses Order S chedule Oncology/Hematology Adult Referral Routine Hydropneumothor ax Ordered: 11/08/2021 Referral documented as of this encounter Visit Diagnoses Diagnosis Hydropneumothorax - Primary Other specified forms of effusion, excep t tuberculous documented in this encounter Care Teams Pharmaceutical Analyst Relationship Specialty Start Date End Date Melissa Waite, PCP - General Physician Deliverer Outside 10/26/21 [facility] [address] [place] [address] Sammie Salguero [place] Referring Physician 10/16/16 [address] [place] [address] Guru BRITNEY Conrad Gastroenterology 10/16/16 Perry Rasmussen MD [address] [place] [address] documented as of this encounter
--- OUTSIDE RECORDS SUMMARY | 2022-08-25 14:25 | XMS_ITS | Encounter Summary ---
:1960 Author Organization [place] Address [address] [facility] [place] [address] Care Team Providers Name Role Phone [facility] Primary Care Provider [facility] Unavailable [phone] Guru Perry Conrad MD Unavailable + Jazmin Puentes RN Unavailable Unavailable Encounter Details Date Type Department Care Team Description 04/16/2020 Travel Social History Tobacco Use Types Packs/Day Years Used Date Current Every Day Smoker 1 28 Alcohol Use Standard Drinks/Week Comments Yes 1.7 (1 standard drink = 0.6 oz pure alco hol) Sex Assigned at Date Recorded Not on file COVID-19 Exposure Response Date Recorded In the last month, have you been in contact with No / Unsure 04/16/2020 11:30 AM CDT someone who was confirmed or suspected to have Coronavirus / COVID-19? documented as of this encounter Plan of Treatment Not on filedocumented as of this encounter Visit Diagnoses Not on filedocumented in this encounter Additional Health Concerns Infection Onset Date Last Indicated Resolved Time Rule Out COVID-19 04/16/2020 04/16/2020 04/16/2020 9:0 2 PM CDT documented as of this encounter Care Teams Elderly Companion Relationship Specialty Start Date End Date [facility] - [facility] 11/05/15 10/25/21 [address] [place] [address] [facility], Sammie [place] Referring Physician 10/16/16 [address] [place] [address] Guru Perry Conrad MD Gastroenterology 10/16/16 MD [address] [place] [address] Jazmin Puentes, RICHY Registered Nurse 10/16/16 1 documented as of this encounter
--- OUTSIDE RECORDS SUMMARY | 2022-08-25 14:25 | XMS_ITS | Encounter Summary ---
:1960 Author Organization [place] Address [address] [facility] [place] [address] Care Team Providers Name Role Phone [facility] Primary Care Provider [phone] [facility] Unavailable [phone] Guru Perry Conrad MD Unavailable + Jazmin Puentes RN Unavailable Unavailable Encounter Details Date Type Department Care Team Description 05/10/2020 Travel Social History Tobacco Use Types Packs/Day Years Used Date Current Every Day Smoker 1 28 Alcohol Use Standard Drinks/Week Comments Yes 1.7 (1 standard drink = 0.6 oz pure alco hol) Sex Assigned at Date Recorded Not on file COVID-19 Exposure Response Date Recorded In the last month, have you been in contact with No / Unsure 05/10/2020 1:01 PM CDT someone who was confirmed or suspected to have Coronavirus / COVID-19? documented as of this encounter Plan of Treatment Not on filedocumented as of this encounter Visit Diagnoses Not on filedocumented in this encounter Care Teams Electronic Imager Relationship Specialty Start Date End Date [facility] PCP - General 11/05/15 10/25/2[address] [place] [address] [facility] Referring Physician 10/16/[id number] [place] [address] Guru Perry Conrad MD Gastroenterology 10/16/16 MD [address] [place] [address] Jazmin Puentes, RICHY Registered Nurse 10/16/16 1 documented as of this encounter
--- OUTSIDE RECORDS SUMMARY | 2022-08-25 14:25 | XMS_ITS | Encounter Summary ---
:1960 Author Organization [place] Address [address] [facility] [place] [address] Care Team Providers Name Role Phone [facility] Unavailable [phone] Guru Perry Conrad MD Unavailable + Melissa Waite PA-C Primary Care Provider Encounter Details Date Type Department Care Team Description 10/26/2021 Travel Social History Tobacco Use Types Packs/Day Years Used Date Current Every Day Smoker 1 28 Alcohol Use Standard Drinks/Week Comments Yes 1.7 (1 standard drink = 0.6 oz pure alco hol) Sex Assigned at Date Recorded Not on file COVID-19 Exposure Response Date Recorded In the last month, have you been in contact with No / Unsure 10/26/2021 9:56 AM COURSE DEVELOPER someone who was confirmed or suspected to have Coronavirus / COVID-19? documented as of this encounter Plan of Treatment Not on filedocumented as of this encounter Visit Diagnoses Not on filedocumented in this encounter Care Teams Skin Washer Relationship Specialty Start Date End Date Melissa Waite, PCP - General Physician Focusing Machine Operator 10/26/21 [facility] [address] [place] [address] [facility] Referring Physician 10/16/16 [address] [place], [place] [id number] Guru BRITNEY Conrad Gastroenterology 10/16/16 Perry Rasmussen MD [address] [place] [address] documented as of this encounter
--- OUTSIDE RECORDS SUMMARY | 2022-08-25 14:25 | XMS_ITS | Encounter Summary ---
:1960 Author Organization [place] Address [address] [facility] [place] [address] Care Team Providers Name Role Phone Clinic, [facility] Primary Care Provider [phone] [facility], [facility] Unavailable [phone] Guru Perry Conrad MD Unavailable + Jazmin Puentes RN Unavailable Unavailable Reason for Referral Home Health Therapies & Aides (Routine) Specialty Diagnoses / Procedures Referred By Contact Refer red To Contact Dameon Donnelly MD [address] [place] [phone] Referral ID Status Reason Start Date Expiration Date Visits Requ ested Visits Authorized [facility] Health Therapies & Aides (Routine) Specialty Diagnoses / Procedures Referred By Contact Refer red To Contact Dameon Donnelly MD [address] [place] [address] Referral ID Status Reason Start Date Expiration Date Visits Requ ested Visits Authorized Reason for Visit Reason Comments Abdominal Pain Shortness of Breath Auth/Cert Specialty Diagnoses / Procedures Referred By Contact Refer red To Contact Diagnoses Acute pancreatitis Hypokalemia Lactic acidosis Pancreatic pseudocyst Dyspnea Pancreatitis [facility] [address] [place], [place] [address] Phone: Fax: Referral ID Status Reason Start Date Expiration Date Visits Requ ested Visits Authorized [id number] 1 1 Encounter Details Date Type Department Care Team Description 04/16/2020 - [facility] Uri Golden PA-C [facility] [address] [place], [place] [id number] Alcohol-induced acute pancreatitis witho ut infection or necrosis (Primary Dx); 04/22/2020 Encounter [facility] Eliezer Marquis, DO [address] [place] [address] Acute pancreatitis; Surgical Pancreatic pseudocyst; [address] Hypokalemia; [place], [place] [id number] Social History Tobacco Use Types Packs/Day Years [...] / COVID-19? documented as of this encounter Last Filed Vital Signs Vital Sign Reading Time Taken Comments Blood Pressure 128/83 04/22/2020 7:57 AM CDT Pulse 83 04/21/2020 5:13 PM CDT Temperature 36.3 ??C (97.3 ??F) 04/22/2020 7:57 AM CDT Respiratory Rate 18 04/22/2020 8:16 AM CDT Oxygen Saturation 95% 04/22/2020 8:16 AM CDT Inhaled Oxygen Concentration - - Weight 43.9 kg (96 lb 12.8 oz) 04/16/2020 6:24 PM CDT Height 172.7 cm (5' 8) 04/16/2020 6:24 PM CDT Body Mass Index 14.72 04/16/2020 6:24 PM CDT documented in this encounter Discharge Summaries Dameon Donnelly MD - 04/22/2020 2:04 PM CDT [facility] Discharge Summary Hospitalist Date of Admission: 04/16/2020 Date of Discharge: 04/22/2020 2:04 PM Discharging Provider: Dameon Donnelly MD Date of Service (when I saw the patient): 04/22/20 Discharge Diagnoses Acute on chronic pancreatitis with pseudocysts. Electrolyte abnormalities in the setting of poor oral intake as well as alcohol use. Severe malnutrition. Hypoalbuminemia due to malnutrition. Tobacco use disorder. COPD, stable. Hypertension. Alcohol use disorder. Unsteady gait in the setting of alcohol use and severe malnutrition. History of Present Illness Hay Gutierrez is an 60 year old male who presented with abdominal pain. Hospital Course Hay Gutierrez is a 60 year old male who was admitted on 04/16/2020. 60 year old male admitted on 04/16/2020. He??has a past medical history significant for hypertension, COPD, ongoing tobacco use disorder, alcohol dependence with ongoing abuse, stroke, and previous pancreatitis. He presented to emergency room with abdominal pain. ??Found to have acute on chronic pancreatitis, concern for pseudocysts. Patient was admitted to internal medicine service for pancreatitis. GI consultation was also obtained. After discussion with GI team, patient was started on a diet. No further intervention was recommended. After starting the patient on a diet, he did not experience worsening of the pain. So the diet hasbeen advanced to a low-fat diet. He has been tolerating that fairly well. Dr. Julio from gastroenterology has recommended follow-up CT scan in 4 to 6 weeks time for evaluation of the pseudocyst. Also recommended follow-up in [place] [facility] clinic in about 2 weeks time. Patient also appears to have a severe malnutrition in the setting of alcohol intake and poor appetite with chronic pancreatitis. Also noted to have lower extremity edema in the setting of hypoalbuminemia. Patient was seen by physical therapy team for evaluation of his unsteady gait. They recommended homephysical therapy which is being arranged. Overall patient appears to be in good spirits. He has good support at home from family. He is eager to go home. Home care is arranged. I personally evaluated and examined the patient on the day of discharge. Dameon Donnelly MD Pending Results These results will be followed up by PCP Unresulted Labs Ordered in the Past 30 Days of this Admission No orders found from 03/17/2020 to 04/17/2020. [facility] Discharge Disposition Discharged to home Condition at discharge: Stable Consultations This Hospital Stay GASTROENTEROLOGY IP CONSULT NUTRITION SERVICES ADULT IP CONSULT NUTRITION SERVICES ADULT IP CONSULT PHYSICAL THERAPY ADULT IP CONSULT OPERATING ROOM SCHEDULER IP CONSULT Time Spent on this Encounter Discharge time: greater than 30 minutes. Discharge Orders Home care nursing referral Home Care PT Referral for Hospital Discharge Reason for your hospital stay Pancreatitis Follow-up and recommended labs and tests Follow up with primary care provider, Sammie Salguero, within 7 days for hospital follow- up. Follow up in [place] clinic in 2 weeks, for recurrent pancreatitis. Activity Your activity upon discharge: activity as tolerated MD face to face encounter Documentation of Face to Face and Certification for Home Health Services I certify that patient: Hay Gutierrez is under my care and that I, or a nurse practitioner or physician's senior court office assistant working with me, had a [id number] encounter that meets the physician eqhj-[id number] requirements with this patient on: 04/22/2020. This encounter with the patient was in whole, or in part, for the following medical condition, whichis the primary reason for home health care: recurrent pancreatitis, unsteady gait. I certify that, based on my findings, the following services are medically necessary home health services: Nursing and Physical Therapy. My clinical findings support the need for the above services because: Nurse is needed: To provide assessment and oversight required in the home to assure adherence to the medical plan due to: recurrentpancreatitis, alcohol use disorder.. and Physical Therapy Services are needed to assess and treat the following functional impairments: unsteady gait, malnutrition in the setting of recurrent pancreatitis. Further, I certify that my clinical findings support that this patient is homebound (i.e. absences from home require considerable and taxing effort and are for medical reasons or judaism services or infrequently or of short duration when for other reasons) because: Patient is bedbound due to: high fall risk, unsteady gait due to pancreatitis and related ,malnutrition. Based on the above findings. I certify that this patient is confined to the home and needs intermittent chcf care, physical therapy and/or speech therapy. The patient is under my care, and Lul initiated the establishment of the plan of care. This patient will be followed by a physician who will periodically review the plan of care. Physician/Provider to provide follow up care: Jose M, Sammie Dowell Attending [facility] physician (the Medicare certified [place] provider): Dameon Donnelly MD Physician Signature: See electronic signature associated with these discharge orders. Date: 04/22/2020 Diet Follow this diet upon discharge: Orders Placed This Encounter Snacks/Supplements Adult: Boost Plus; Between Meals Low Fat Diet Discharge Medications Discharge Medication List as of 04/22/2020 12:04 PM START taking these medications Details multivitamin w/minerals (THERA-VIT-M) tablet Take 1 tablet by mouth daily, OTC CONTINUE these medications which have NOT CHANGED Details acetaminophen (TYLENOL) 500 MG tablet Take 1,000 mg by mouth once as needed for mild pain, Historical aspirin (ASA) 325 MG EC tablet Take 325 mg by mouth daily , Historical atenolol (TENORMIN) 25 MG tablet Take 25 mg by mouth daily (with dinner) , Historical fluticasone - vilanterol (BREO ELLIPTA) 100-25 MCG/INH oral inhaler Inhale 1 puff into the lungs daily, Historical lisinopril (ZESTRIL) 20 MG tablet Take 20 mg by mouth daily (with dinner) , Historical umeclidinium bromide (INCRUSE ELLIPTA) 62.5 MCG/INH inhalation capsule Inhale 62.5 mcg into the lungs daily, Historical Allergies No Known Allergies Data Most Recent 3 CBC's: Recent Labs Lab Test 04/22/20 0604/21/20 0604/19/20 0710 04/17/20 0758 WBC -- 7.4 8.4 8.8 HGB 10.3* 10.4* 10.7* 11.2* MCV -- 110* 114* 112* PLT -- 318 261 239 Most Recent 3 BMP's: Recent Labs Lab Test 04/22/20 0604/21/20 0626 04/20/20 0712 NA 135 135 137 POTASSIUM 4.2 4.7 4.7 CHLORIDE 104 106 108 CO2 27 23 23 BUN 5* 3* 4* CR 0.54* 0.46* 0.46* ANIONGAP 4 6 6 TRAY 8.0* 7.7* 7.3* GLC 75 73 77 Most Recent 2 LFT's: Recent Labs Lab Test 04/21/20 0626 04/20/20 0712 AST 40 37 ALT 74* 83* ALKPHOS 104 105 BILITOTAL 0.7 0.8 Most Recent INR's and Anticoagulation Dosing History: Anticoagulation Dose History Recent Dosing and Labs Latest Ref Rng & Units 04/28/2015 11/05/2015 09/02/2016 09/04/2016 09/11/2016 09/12/2016 INR 0.86 - 1.14 1.16(H) 0.90 1.23(H) 1.00 1.29(H) 1.27(H) Most Recent 3 Troponin's: Recent Labs Lab Test 08/25/16 1154 04/28/15 1630 TROPI <0.015 The 99th percentile for upper reference range is 0.045 ug/L. Troponin values in the range of 0.045 - 0.120 ug/L may be associated with risks of adverse clinical events. <0.015 The 99th percentile for upper reference range is 0.045 ug/L. Troponin values in the range of 0.045 - 0.120 ug/L may be associated with risks of adverse clinical events. Most Recent Cholesterol Panel:No lab results found. Most Recent 6 Bacteria Isolates From Any Culture (See EPIC Reports for Culture Details): Recent Labs Lab Test 09/13/16 0748 09/12/16 0644 09/11/16 1755 09/11/16 1745 09/10/16 2250 09/10/16 1500 CULT No growth No growth No growth No anaerobes isolated No growth 10,000 to 50,000 colonies/mL mixed urogenital edson Susceptibility testing not routinely done Cultured on the 1st day of incubation: Janny albicans Critical Value/Significant Value, preliminary result only, called to and read back by Shweta Patricia PAC at 1353 09/11/16 by [id number] * Most Recent TSH, T4 and A1c Labs: Recent Labs Lab Test 09/02/16 0545 A1C 4.9 documented in this encounter Discharge Instructions Discharge Tyesha Costa - 04/22/2020 11:07 AM CDT NUTRITION: Continue a low fat diet until directed by your provider. Aim to consume nutrient dense and high protein foods as tolerated, 3 meals per day plus snacks. Use oral nutrition supplements between meals or with meds (avoid using as a meal replacement). Supplement with a multivitamin. You also received folic acid and thiamine and at the direction of your provider, can continue to supplement if ETOH use ongoing. Electrolytes (phosphorus, potassium) should stabilize if you are eating a variety of nutrient dense food items and abstaining from alcohol. [facility] Dietitian's Office: [phone] Your hospital follow up appointment has been scheduled for you with Dr. Champagne at [facility] for April 26, 2020 at 10:20 AM. This is a telephonic visit. Please make sure to disable antonymous call blocking. Please have your hospital discharge instructions, with you to your appointment. Please call the clinic at [phone] if you need to reschedule. [facility] [phone] will provide HC services for PT and RN AttachmentsThe following attachments cannot be sent through Care Everywhere. Diet, Low Fat ([place]ymraes)Acute Pancreatitis, Discharge Instructions for ([place]ymraes) documented in this encounter Medications at Time of Discharge Medication Sig Dispensed Refills Start Date End Date aspirin (ASA) 325 MG EC Take 325 mg by 0 tablet mouth daily atenolol (TENORMIN) 25 MG Take 25 mg by mouth 0 tablet daily (with dinner) lisinopril (ZESTRIL) 20 MG Take 20 mg by mouth 0 tablet daily (with dinner) multivitamin w/minerals Take 1 tablet by 0 2019 (THERA-VIT-M) mouth daily tabletIndications: Alcohol-induced acute pancreatitis without infection or necrosis acetaminophen (TYLENOL) Take 1,000 mg by 0 10/26/2021 500 MG tablet mouth once as needed for mild pain fluticasone - vilanterol Inhale 1 puff into 0 10/26/2021 (BREO ELLIPTA) 100-25 the lungs daily MCG/INH oral inhaler umeclidinium bromide Inhale 62.5 mcg 0 10/26/2021 (INCRUSE ELLIPTA) 62.5 into the lungs MCG/INH inhalation capsule daily documented as of this encounter Progress Notes Karlos, Radha, PT - 04/22/2020 9:36 AM CDT 04/22/20 0900 Quick Adds Type of Visit Initial PT Evaluation Living Environment Lives With spouse;child(allyson), adult Living Arrangements house Home Accessibility stairs to enter home Number of Stairs, Main Entrance 3 Stair Railings, Main Entrance railings on both sides of stairs Transportation Anticipated family or friend will provide Self-Care Usual Activity Tolerance moderate Current Activity Tolerance moderate Equipment Currently Used at Home cane, straight;shower chair;grab bar, tub/shower;grab bar, toilet;raised toilet;walker, rolling Activity/Exercise/Self-Care Comment Patient reports he is modified independent with ADLs at baseline. He uses a shower chair. He typically drives. Functional Level Prior Ambulation 1-->assistive equipment Transferring 1-->assistive equipment Toileting 1-->assistive equipment Bathing 1-->assistive equipment Communication 0-->understands/communicates without difficulty Fall history within last six months yes Number of times patient has fallen within last six months 1 Prior Functional Level Comment Patient reports he uses a SEC to ambulate at home, but has a walker if he needs it. General Information Onset of Illness/Injury or Date of Surgery - Date 04/16/20 Referring Physician Iesha Davila MD Patient/Family Goals Statement to go home today Pertinent History of Current Problem (include personal factors and/or comorbidities that impact the POC) Patient is 60 YO M admitted with diagnosis of acute on chronic pancreatitis and malnutrition. PMH: COPD, tobacco use, hypertension, CVA, EtOH dependence Precautions/Limitations fall precautions General Observations Patient in room with MD upon arrival Cognitive Status Examination Orientation orientation to person, place and time Level of Consciousness alert Follows Commands and Answers Questions able to follow multistep instructions Personal Safety and Judgment intact Memory intact Pain Assessment Patient Currently in Pain No Integumentary/Edema Integumentary/Edema Comments Mild edema in B ankles Posture Posture Forward head position;Protracted shoulders;Kyphosis Range of Motion (ROM) ROM Comment B LE AROM WFL Strength Strength Comments B hip flexion 3+/5; generalized functional weakness observed Bed Mobility Bed Mobility Comments Supine <> sit with modified independence Transfer Skills Transfer Comments Sit <> stand from bed with FWW and SBA, mild trunk sway upon standing, able to maintain balance with support of walker Gait Gait Comments Patient ambulated 30' in room with FWW, gait belt and SBA. Decreased heel strike andfoot clearance bilatearally but no losses of balance Balance Balance Comments Static stance without UE support for > 30 seconds without difficulty; Semi-tandem for 10 seconds with SBA Sensory Examination Sensory Perception Comments Chronic numbness and tingling in feet but intact to light touch General Therapy Interventions Planned Therapy Interventions balance training;gait training;strengthening;transfer training;progressive activity/exercise Clinical Impression Criteria for Skilled Therapeutic Intervention yes, treatment indicated PT Diagnosis impaired gait Influenced by the following impairments muscle weakness, decreased activity tolerance, impaired balance Functional limitations due to impairments increased difficulty with transfers and gait; falls risk Clinical Presentation Stable/Uncomplicated Clinical Presentation Rationale cleared for medical d/c today Clinical Decision Making (Complexity) Low complexity Therapy Frequency Daily Predicted Duration of Therapy Intervention (days/wks) 1 week Anticipated Discharge Disposition Home with Assist;Home with Home Therapy Risk & Benefits of therapy have been explained Yes Patient, Family & other staff in agreement with plan of care Yes Clinical Impression Comments Patient has supportive family to assist at home; HHPT to progress to baseline of modified independence with SEC; recommended use of FWW at this time [facility] AM-PAC TM 6 Clicks ?? 2016, Trustees of [facility], under license to [employer]. All rights reserved. 6 Clicks Short Forms Basic Mobility Inpatient Short Form [facility]-PAC??? 6 Clicks V.2 Basic Mobility Inpatient Short Form 1. Turning from your back to your side while in a flat bed without using bedrails? 4 - None 2. Moving from lying on your back to sitting on the side of a flat bed without using bedrails? 4 - None 3. Moving to and from a bed to a chair (including a wheelchair)? 3 - A Little 4. Standing up from a chair using your arms (e.g., wheelchair, or bedside chair)? 3 - A Little 5. To walk in hospital room? 3 - A Little 6. Climbing 3-5 steps with a railing? 3 - A Little Basic Mobility Raw Score (Score out of 24.Lower scores equate to lower levels of function) 20 Total Evaluation Time Total Evaluation Time (Minutes) 14 Franco Julio MD - 04/22/2020 8:16 AM CDT [facility] - GASTROENTEROLOGY PROGRESS NOTE IMPRESSION: 1. Acute on chronic pancreatitis - likely due to ongoing alcohol and smoking. CT with PD dilaation, hazy density (could be acute pancreatitis and pseudocysts. Continues with intermittent abdominal pain, however, this is significantly improved today. Tolerates low-fat diet at small volume without increase in pain. Minimal abdominal pain with eating and hopefully will be going home today. 3. Malnutrition, on nutritional supplements and being followed by nutritional services. 4. Increased LFTs -likely secondary to alcohol and resolving. RECOMMENDATIONS: 1. Okay for discharge from a GI perspective. 2. My office will contact the patient early next week to set up a follow-up appointment with 1 of our biliary providers in [address] plans for CT scan in 4 to 6 weeks with likely EUS pending the CT results. 3. Please call any further questions. Franco Julio MD, FACG [facility] Digestive Health [phone] SUBJECTIVE: Minimal to no abdominal pain with diet today. Tolerating his diet and nutritional supplements without issue. OBJECTIVE: BP 128/83 (BP Location: Right arm) Pulse 83 Temp 97.3 ??F (36.3 ??C) (Axillary) Resp 18 Ht 1.727 m (5' 8) Wt 43.9 kg (96 lb 12.8 oz) SpO2 93% BMI 14.72 kg/m?? Temp (24hrs), Av.8 ??F (36.6 ??C), Min:97.7 ??F (36.5 ??C), Max:98 ??F (36.7 ??C) No data found. PHYSICAL EXAM GEN: Alert, oriented x3, NAD. HRT: S1, S2, regular rate and rhythm LUNGS: Clear bilaterally ABD: Minimal to no abdominal pain on palpation, soft, nontender, bowel sounds positive, no distention or guarding Additional Data: I have reviewed the patient's new clinical lab results: Recent Labs Lab Test 04/22/20 0629 04/21/20 0626 04/19/20 0710 04/17/20 0758 09/12/16 0644 09/11/16 0545 09/04/16 0539 WBC -- 7.4 8.4 8.8 < > 10.9 15.3* < > 17.3* HGB 10.3* 10.4* 10.7* 11.2* < > 8.0* 7.8* < > 10.0* MCV -- 110* 114* 112* < > 105* 104* < > 105* PLT -- 318 261 239 < > 505* 713* < > 354 INR -- -- -- -- -- 1.27* 1.29* -- 1.00 < > = values in this interval not displayed. Recent Labs Lab Test 04/22/2062804/21/2062504/20/20 0712 POTASSIUM 4.2 4.7 4.7 CHLORIDE 104 106 108 CO2 27 23 23 BUN 5* 3* 4* ANIONGAP 4 6 6 Recent Labs Lab Test 04/21/2062504/20/20 0712 04/19/20 0710 04/18/20 0617 04/17/20 0758 04/16/20 1742 09/10/16 2250 08/30/16 1115 ALBUMIN 1.6* 1.7* 1.7* -- 1.7* -- < > -- < > -- BILITOTAL 0.7 0.8 0.9 -- 1.3 -- < > -- < > -- ALT 74* 83* 92* -- 117* -- < > -- < > -- AST 40 37 35 -- 28 -- < > -- < > -- PROTEIN -- -- -- -- -- 30* -- Negative -- 10* LIPASE 841* -- -- 626* 617* -- < > -- < > -- < > = values in this interval not displayed. Franco Julio MD - 04/21/2020 1:36 PM CDT [facility] - GASTROENTEROLOGY PROGRESS NOTE IMPRESSION: 1. Acute on chronic pancreatitis - likely due to ongoing alcohol and smoking. CT with PD dilaation, hazy density (could be acute pancreatitis and pseudocysts. Continues with intermittent abdominal pain, however, this is significantly improved today. Tolerates low-fat diet at small volume without increase in pain. Less abdominal pain today with tentative plans to discharge tomorrow. 2. Alcohol dependence 3. Malnutrition, on nutritional supplements and being followed by nutritional services. 4. Increased LFTs - monitor RECOMMENDATIONS: 1. Continue low-fat diet low-fat diet, with nutritional supplements. If abdominal pain increases or cannot meet caloric needs may need feeding tube. 2. Continue nutritional services in consultation. 3. If he continues to improve, have no problem with discharge as tentatively planned for tomorrow with CT scan in 4 to 6 weeks with follow-up in [facility] clinic with biliary provider in 2 weeks and may need to consider EUS pending the CT results. We will arrange this follow-up visit. Franco Julio MD, FACG [facility] Digestive Health [phone] SUBJECTIVE: Reports significantly less abdominal pain today. Tolerating his diet and nutritional supplements without issue. OBJECTIVE: BP 117/83 (BP Location: Left arm) Pulse 89 Temp 97.4 ??F (36.3 ??C) (Oral) Resp 18 Ht 1.727 m (5' 8) Wt 43.9 kg (96 lb 12.8 oz) SpO2 97% BMI 14.72 kg/m?? Temp (24hrs), Av.8 ??F (36.6 ??C), Min:97.7 ??F (36.5 ??C), Max:98 ??F (36.7 ??C) No data found. PHYSICAL EXAM GEN: Alert, oriented x3, NAD. HRT: S1, S2, regular rate and rhythm LUNGS: Clear bilaterally ABD: Minimal to no abdominal pain on palpation, soft, nontender, bowel sounds positive, no distention or guarding Additional Data: I have reviewed the patient's new clinical lab results: Recent Labs Lab Test 04/21/20 0604/19/20 0710 04/17/20 0758 09/12/16 0644 09/11/16 0545 09/04/16 0539 WBC 7.4 8.4 8.8 < > 10.9 15.3* < > 17.3* HGB 10.4* 10.7* 11.2* < > 8.0* 7.8* < > 10.0* MCV 110* 114* 112* < > 105* 104* < > 105* PLT 318 261 239 < > 505* 713* < > 354 INR -- -- -- -- 1.27* 1.29* -- 1.00 < > = values in this interval not displayed. Recent Labs Lab Test 04/21/2062504/20/20 0712 04/19/20 0710 POTASSIUM 4.7 4.7 4.2 CHLORIDE 106 108 107 CO2 23 23 25 BUN 3* 4* 5* ANIONGAP 6 6 3 Recent Labs Lab Test 04/21/2062504/20/20 0712 04/19/20 0710 04/18/20 0617 04/17/20 0758 04/16/20 1742 09/10/16 2250 08/30/16 1115 ALBUMIN 1.6* 1.7* 1.7* -- 1.7* -- < > -- < > -- BILITOTAL 0.7 0.8 0.9 -- 1.3 -- < > -- < > -- ALT 74* 83* 92* -- 117* -- < > -- < > -- AST 40 37 35 -- 28 -- < > -- < > -- PROTEIN -- -- -- -- -- 30* -- Negative -- 10* LIPASE 841* -- -- 626* 617* -- < > -- < > -- < > = values in this interval not displayed. Iesha Davila MD - 04/21/2020 11:45 AM CDT Images from the original note were not included. [facility] Hospitalist Progress Note Admit 04/16/2020 12:33 PM Name: Hay Gutierrez Date of Service: 04/21/2020 Reason for Stay (Diagnosis): Acute on chronic pancreatitis Summary of hospital stay & Assessment/Plan: Summary of Stay: Hay Gutierrez is a 60 year old male who was admitted on 04/16/2020. 60 year old male admitted on 04/16/2020. He has a past medical history significant for hypertension, COPD, ongoing tobacco use disorder, alcohol dependence with ongoing abuse, stroke, and previous pancreatitis. He presented to emergency room with abdominal pain. Found to have acute on chronic pancreatitis, concern for pseudocysts. 04/21/20 Abdominal pain has improved was able to advance diet. Is not requiring pain medication. He has weight gain and leg edema which is new we will diurese him today. He as deconditioned and with unsteady gait. Will get PT evaluation today ?? Acute on chronic pancreatitis. -With appearance of pseudocysts on CT scan. -Started clear liquid diet. Advance diet - Continuous IV fluids till able to tolerate p.o. -Pain medications and nausea medications as needed. -Gastroenterology consulted. Per GI, will need repeat CT in 4-6 weeks, pending this result, may needto consider EUS. Leg edema -Dependent edema related with hypoalbuminemia -We will do one-time dose of Lasix 20 mg -Monitor weight -Monitor electrolytes ?? Hypokalemia. -replaced per Protocol. Hypophosphatemia -We will continue to replace -We will replace per protocol ?? Probable severe malnutrition. -Registered dietitian consulted. ?? Tobacco use disorder. -advised smoking cessation. nicotine patch. ?? COPD. -No acute exacerbation. -Restarted home inhalers. ?? Hypertension. Uncontrolled - Resume atenolol w parameter -We will resume lisinopril as well ?? Alcohol dependence. -States he has not had any alcohol in the past 10 days. EtOH level not elevated. Monitor for evidence of withdrawals. Deconditioned -PT evaluation ?? COVID-19 rule out. SARS-CoV-2 PCR negative. DVT Prophylaxis: Pneumatic Compression Devices Code Status: Full Code Disposition Plan Expected discharge in tomorrow to prior living arrangement if electrolytes remain stable after diuresis and completing PT evaluation Entered: Iesha Davila 04/21/2020, 11:45 AM Interval History: Reviewed chart. Patient was able to advance diet. Does not have any abdominal pain is concerned about new leg edema and swelling in arms. Denies abdominal pain has some nausea. Is severely malnourishedrequesting help with nutrition. Denies any chest pain shortness of breath. Review of all the other ymptoms are negative. Physical Exam: Physical Exam Temp: 97.4 ??F (36.3 ??C) Temp src: Oral BP: 117/83 Heart Rate: 75 Resp: 18 SpO2: 97 % O2 Device: None (Room air) Vitals: 04/16/20 1824 Weight: 43.9 kg (96 lb 12.8 oz) I/O last 3 completed shifts: In: 480 [P.O.:480] Out: 2730 [Urine:2730] GENERAL: Comfortable. Cachectic PSYCH: pleasant, oriented, No acute distress. EYES: PERRLA, Normal conjunctiva. HEART: Normal S1, S2 with no edema. LUNGS: Clear to auscultation, normal Respiratory effort. ABDOMEN: Epigastric tenderness, no hepatosplenomegaly, normal bowel sounds. SKIN: Dry to touch, No rash. Extremities: Bilateral pedal edema Medications ??? aspirin 325 mg Oral Daily ??? atenolol 25 mg Oral Daily with supper ??? fluticasone-vilanterol 1 puff Inhalation Daily ??? furosemide 20 mg Intravenous Once ??? lisinopril 20 mg Oral Daily with supper ??? nicotine 1 patch Transdermal Daily ??? nicotine Transdermal Q8H ? ? potassium & sodium phosphates 1 packet Oral BID ??? sodium chloride (PF) 3 mL Intracatheter Q8H ??? sodium chloride (PF) 3 mL Intracatheter Q8H ??? umeclidinium 1 puff Inhalation Daily Data -Data reviewed today: I personally reviewed all new labs and imaging results over the last 24 hours. Recent Labs Lab 04/21/20 0626 04/19/20 0710 04/17/20 0758 WBC 7.4 8.4 8.8 HGB 10.4* 10.7* 11.2* HCT 32.1* 33.5* 34.1* MCV 110* 114* 112* PLT 318 261 239 Recent Labs Lab 04/21/20 0626 04/20/20 0712 04/19/20 0710 NA 135 137 135 POTASSIUM 4.7 4.7 4.2 CHLORIDE 106 108 107 CO2 23 23 25 ANIONGAP 6 6 3 GLC 73 77 82 BUN 3* 4* 5* CR 0.46* 0.46* 0.40* GFRESTIMATED >90 >90 >90 GFRESTBLACK >90 >90 >90 TRAY 7.7* 7.3* 6.9* No results found for this or any previous visit (from the past 24 hour(s)). This document was produced using voice recognition software Franco Julio MD - 04/20/2020 11:54 AM CDT [facility] - GASTROENTEROLOGY PROGRESS NOTE IMPRESSION: 1. Acute on chronic pancreatitis - likely due to ongoing alcohol and smoking. CT with PD dilaation, hazy density (could be acute pancreatitis and pseudocysts. Continues with intermittent abdominal pain, however, this is significantly improved today. Tolerates low-fat diet at small volume without increase in pain. Continues to receive Dilaudid for pain in general, however, patient states this is more generalized pain than abdominal pain. 2. Alcohol dependence 3. Malnutrition, on nutritional supplements and being followed by nutritional services. 4. Increased LFTs - monitor RECOMMENDATIONS: 1. Continue low-fat diet low-fat diet, with nutritional supplements. If abdominal pain increases or cannot meet caloric needs may need feeding tube. 2. Continue nutritional services in consultation. 3. If no improvement, repeat CT early next week or if he continues to improve CT scan in 4 to 6 weeks with follow-up in [facility] clinic and may need to consider EUS pending the CT results. We will arrange this follow-up visit. Franco Julio MD, FACG [facility] [phone] SUBJECTIVE: Tolerates low-fat diet without large portions without increased abdominal pain. He continues to receive Dilaudid. However, the patient states this is for body pain and not necessarily abdominal pain. His abdominal exam is benign today except for some minimal pain with deep palpation. Otherwise no GI complaints. Nutritional services notes are reviewed and appreciated. Patient tolerating nutritional supplements. OBJECTIVE: BP (!) 130/95 (BP Location: Right arm) Pulse 89 Temp 98.2 ??F (36.8 ??C) (Oral) Resp 18 Ht 1.727 m (5' 8) Wt 43.9 kg (96 lb 12.8 oz) SpO2 94% BMI 14.72 kg/m?? Temp (24hrs), Av.8 ??F (36.6 ??C), Min:97.7 ??F (36.5 ??C), Max:98 ??F (36.7 ??C) No data found. PHYSICAL EXAM GEN: Alert, oriented x3, NAD. HRT: S1, S2, regular rate and rhythm LUNGS: Clear bilaterally ABD: Minimal to no abdominal pain on palpation, soft, nontender, bowel sounds positive, no distention or guarding Additional Data: I have reviewed the patient's new clinical lab results: Recent Labs Lab Test 04/19/20 0710 04/17/20 0758 04/16/20 1310 09/12/16 0644 09/11/16 0545 09/04/16 0539 WBC 8.4 8.8 9.1 < > 10.9 15.3* < > 17.3* HGB 10.7* 11.2* 13.5 < > 8.0* 7.8* < > 10.0* MCV 114* 112* 110* < > 105* 104* < > 105* PLT 261 239 269 < > 505* 713* < > 354 INR -- -- -- -- 1.27* 1.29* -- 1.00 < > = values in this interval not displayed. Recent Labs Lab Test 04/20/20 0712 04/19/20 0710 04/18/20 0617 POTASSIUM 4.7 4.2 3.9 CHLORIDE 108 107 110* CO2 23 25 25 BUN 4* 5* 10 ANIONGAP 6 3 5 Recent Labs Lab Test 04/20/20 0712 04/19/20 0710 04/18/20 0617 04/17/20 0758 04/16/20 1742 04/16/20 1310 09/10/16 2250 08/30/16 1115 ALBUMIN 1.7* 1.7* -- 1.7* -- 2.4* < > -- < > -- BILITOTAL 0.8 0.9 -- 1.3 -- 1.6* < > -- < > -- ALT 83* 92* -- 117* -- 192* < > -- < > -- AST 37 35 -- 28 -- 43 < > -- < > -- PROTEIN -- -- -- -- 30* -- -- Negative -- 10* LIPASE -- -- 626* 617* -- 1,163* < > -- < > -- < > = values in this interval not displayed. Lakshmi Willis RD, LD - 04/20/2020 9:50 AM CDT NUTRITION BRIEF NOTE Attempted to reach patient via phone (per direction of department guidelines in the setting of COVID19) to follow up on low fat diet advancement - unable to reach patient. Requested nutrition associatedrop off a low fat menu for patient. Will attach low fat diet materials to discharge summary and left an overview of diet recommendations. Consider transitioning Infuvite to orals: folic acid 1 mg, thiamine 100 mg, MVI+M. Continue oral nutrition supplements between meals as tolerated. Agree with low threshold for pursuing nutrition support, but appears to be tolerating low fat diet thus far. ADDENDUM: Paged by RN, patient available and had specific questions he wanted answered. Discussed indepth with patient via phone. Low fat diet (<50 grams per day) until liberalized by pending resolution of pancreatitis. Need for ongoing high protein options, with resumption of high calorie options as diet is liberalized in the future (oils, butter, ice cream). Patient with specific questions about electrolyte replacement protocols - explained these are nutrients found in food sources and should normalize prior to discharge, should he continue eat adequate amounts of nutrient dense foods and abstain from alcohol consumption. Will benefit from supplementation of MVI+M at discharge, and could also consider folic acid 1 mg andthiamine 100 mg if ongoing ETOH use, although this will further exacerbate his chronic malnutrition.Encouraged meals TID in addition to oral nutrition supplements between meals to regain and stabilizeweight (he is concerned his body wasn't able to fight off this bug like his other family members -explained the role of low BMI, malnutrition in this). Feels he is finding foods on the menu and tolerating oral intake thus far. Left RD contact information in discharge instructions as well. Lakshmi Willis, , RDN, LD, [facility] Pager - 3rd floor/ICU: [phone] Pager - All other floors: [phone] Pager - Weekend/holiday: [phone] Office: [phone] Iesha Davila MD - 04/20/2020 8:26 AM CDT Images from the original note were not included. [facility] Hospitalist Progress Note Admit 04/16/2020 12:33 PM Name: Hay Gutierrez Date of Service: 04/20/2020 Reason for Stay (Diagnosis): Acute on chronic pancreatitis Summary of hospital stay & Assessment/Plan: Summary of Stay: Hay Gutierrez is a 60 year old male who was admitted on 04/16/2020. 60 year old male admitted on 04/16/2020. He has a past medical history significant for hypertension, COPD, ongoing tobacco use disorder, alcohol dependence with ongoing abuse, stroke, and previous pancreatitis. He presented to emergency room with abdominal pain. Found to have acute on chronic pancreatitis, concern for pseudocysts. ?? Acute on chronic pancreatitis. -With appearance of pseudocysts on CT scan. -Started clear liquid diet. Advance diet - Continuous IV fluids till able to tolerate p.o. -Pain medications and nausea medications as needed. -Gastroenterology consulted. Per GI, will need repeat CT in 4-6 weeks, pending this result, may needto consider EUS. ?? Hypokalemia. -replaced per Protocol. Hypophosphatemia -We will continue to replace -We will replace per protocol ?? Probable severe malnutrition. -Registered dietitian consulted. ?? Tobacco use disorder. -advised smoking cessation. nicotine patch. ?? COPD. -No acute exacerbation. -Restarted home inhalers. ?? Hypertension. Uncontrolled - Resume atenolol w parameter -We will resume lisinopril as well ?? Alcohol dependence. -States he has not had any alcohol in the past 10 days. EtOH level not elevated. Monitor for evidence of withdrawals. ?? COVID-19 rule out. SARS-CoV-2 PCR negative. DVT Prophylaxis: Pneumatic Compression Devices Code Status: Full Code Disposition Plan Expected discharge in tomorrow to prior living arrangement once pancreatitis resolves and can resumeoral intake. Entered: Iesha Davila 04/20/2020, 8:26 AM Interval History: Reviewed chart. Patient tolerated clears however felt he overdid it. Denies abdominal pain has some nausea. Is severely malnourished requesting help with nutrition. Denies any chest pain shortness of breath. We will hold if symptoms are negative. Physical Exam: Physical Exam Temp: 98.2 ??F (36.8 ??C) Temp src: Oral BP: (!) 130/95 Heart Rate: 70 Resp: 18 SpO2: 97 % O2 Device: None (Room air) Vitals: 04/16/20 1824 Weight: 43.9 kg (96 lb 12.8 oz) I/O last 3 completed shifts: In: 1040 [P.O.:1040] Out: 1200 [Urine:1200] GENERAL: Comfortable. Cachectic PSYCH: pleasant, oriented, No acute distress. EYES: PERRLA, Normal conjunctiva. HEART: Normal S1, S2 with no edema. LUNGS: Clear to auscultation, normal Respiratory effort. ABDOMEN: Epigastric tenderness, no hepatosplenomegaly, normal bowel sounds. SKIN: Dry to touch, No rash. Medications ??? 0.9% sodium chloride + KCl 20 mEq/L 100 mL/hr at 04/20/20 0522 ??? aspirin 325 mg Oral Daily ??? atenolol 25 mg Oral Daily with supper ??? fluticasone-vilanterol 1 puff Inhalation Daily ??? lisinopril 20 mg Oral Daily with supper ??? nicotine 1 patch Transdermal Daily ??? nicotine Transdermal Q8H ??? sodium chloride (PF) 3 mL Intracatheter Q8H ??? sodium chloride (PF) 3 mL Intracatheter Q8H ??? IV Fluid with vitamins Intravenous Q24H ??? umeclidinium 1 puff Inhalation Daily Data -Data reviewed today: I personally reviewed all new labs and imaging results over the last 24 hours. Recent Labs Lab 04/19/20 0710 04/17/20 0758 04/16/20 1310 WBC 8.4 8.8 9.1 HGB 10.7* 11.2* 13.5 HCT 33.5* 34.1* 38.3* MCV 114* 112* 110* PLT 261 239 269 Recent Labs Lab 04/20/20 0712 04/19/20 0710 04/18/20 0617 NA 137 135 140 POTASSIUM 4.7 4.2 3.9 CHLORIDE 108 107 110* CO2 23 25 25 ANIONGAP 6 3 5 GLC 77 82 74 BUN 4* 5* 10 CR 0.46* 0.40* 0.44* GFRESTIMATED >90 >90 >90 GFRESTBLACK >90 >90 >90 TRAY 7.3* 6.9* 7.2* No results found for this or any previous visit (from the past 24 hour(s)). This document was produced using voice recognition software Franco Julio MD - 04/19/2020 11:04 AM CDT [facility] - GASTROENTEROLOGY PROGRESS NOTE IMPRESSION: 1. Acute on chronic pancreatitis - likely due to ongoing alcohol and smoking. CT with PD dilaation, hazy density (could be acute pancreatitis and pseudocysts. Had increased pain yesterday, however, this is significantly improved today. Reports significant overeating given 48 hours of n.p.o. status. 2. Alcohol dependence 3. Malnutrition 4. Increased LFTs - monitor RECOMMENDATIONS: 1. Given improvement, will advance to low-fat diet. Did caution the patient against eating too much too soon. We will have dietitian visit patient to discuss low-fat diet. If abdominal pain increases, will proceed to repeat CAT scan. 2. Await pending sill worker evaluation 3. Repeat CT in 4-6 weeks, follow-up in [facility] clinic and may need to consider EUS pending the CT results. We will arrange this follow-up visit. Franco Julio MD, [facility] [phone] SUBJECTIVE: Reports eating too much clear liquids including 2-3 broths and significant other clear liquid ingestion after being n.p.o. for 48 hours. He feels this is why his abdominal pain increased yesterday. This morning he has moderated his intake and has minimal to no abdominal pain. He offers no other complaints today from a GI perspective. Eager to advance diet. OBJECTIVE: BP (!) 152/105 (BP Location: Right arm) Pulse 89 Temp 98.1 ??F (36.7 ??C) (Oral) Resp 18 Ht 1.727 m (5' 8) Wt 43.9 kg (96 lb 12.8 oz) SpO2 95% BMI 14.72 kg/m?? Temp (24hrs), Av.8 ??F (36.6 ??C), Min:97.7 ??F (36.5 ??C), Max:98 ??F (36.7 ??C) Patient Vitals for the past 72 hrs: Weight 04/16/20 1824 43.9 kg (96 lb 12.8 oz) PHYSICAL EXAM GEN: Alert, oriented x3, NAD. HRT: S1, S2, regular rate and rhythm LUNGS: Clear bilaterally ABD: Minimal to no abdominal pain on palpation, soft, nontender, bowel sounds positive, no distention or guarding Additional Data: I have reviewed the patient's new clinical lab results: Recent Labs Lab Test 04/19/20 0710 04/17/20 0758 04/16/20 1310 09/12/16 0644 09/11/16 0545 09/04/16 0539 WBC 8.4 8.8 9.1 < > 10.9 15.3* < > 17.3* HGB 10.7* 11.2* 13.5 < > 8.0* 7.8* < > 10.0* MCV 114* 112* 110* < > 105* 104* < > 105* PLT 261 239 269 < > 505* 713* < > 354 INR -- -- -- -- 1.27* 1.29* -- 1.00 < > = values in this interval not displayed. Recent Labs Lab Test 04/19/20 0710 04/18/20 0617 04/17/20 1656 04/17/20 0758 POTASSIUM 4.2 3.9 4.1 3.1* CHLORIDE 107 110* -- 109 CO2 25 25 -- 25 BUN 5* 10 -- 14 ANIONGAP 3 5 -- 7 Recent Labs Lab Test 04/19/20 0710 04/18/20 0617 04/17/20 0758 04/16/20 1742 04/16/20 1310 09/10/16 2250 08/30/16 1115 ALBUMIN 1.7* -- 1.7* -- 2.4* < > -- < > -- BILITOTAL 0.9 -- 1.3 -- 1.6* < > -- < > -- ALT 92* -- 117* -- 192* < > -- < > -- AST 35 -- 28 -- 43 < > -- < > -- PROTEIN -- -- -- 30* -- -- Negative -- 10* LIPASE -- 626* 617* -- 1,163* < > -- < > -- < > = values in this interval not displayed. Iesha Davila MD - 04/19/2020 8:15 AM CDT Images from the original note were not included. [facility] Hospitalist Progress Note Admit 04/16/2020 12:33 PM Name: Hay Gutierrez Date of Service: 04/19/2020 Reason for Stay (Diagnosis): Acute on chronic pancreatitis Summary of hospital stay & Assessment/Plan: Summary of Stay: Hay Gutierrez is a 60 year old male who was admitted on 04/16/2020. 60 year old male admitted on 04/16/2020. He has a past medical history significant for hypertension, COPD, ongoing tobacco use disorder, alcohol dependence with ongoing abuse, stroke, and previous pancreatitis. He presented to emergency room with abdominal pain. Found to have acute on chronic pancreatitis, concern for pseudocysts. ?? Acute on chronic pancreatitis. -With appearance of pseudocysts on CT scan. -Started clear liquid diet. Advance diet - Continuous IV fluids till able to tolerate p.o. -Pain medications and nausea medications as needed. -Gastroenterology consulted. Per GI, will need repeat CT in 4-6 weeks, pending this result, may needto consider EUS. ?? Hypokalemia. -replaced per Protocol. Hypophosphatemia -We will replace per protocol ?? Probable severe malnutrition. -Registered dietitian consulted. ?? Tobacco use disorder. -advised smoking cessation. nicotine patch. ?? COPD. -No acute exacerbation. -Restarted home inhalers. ?? Hypertension. Uncontrolled - Resume atenolol w parameter -We will resume lisinopril as well ?? Alcohol dependence. -States he has not had any alcohol in the past 10 days. EtOH level not elevated. Monitor for evidence of withdrawals. ?? COVID-19 rule out. SARS-CoV-2 PCR negative. DVT Prophylaxis: Pneumatic Compression Devices Code Status: Full Code Disposition Plan Expected discharge in 2-3 days to prior living arrangement once pancreatitis resolves and can resumeoral intake. Entered: Iesha Davila 04/19/2020, 8:15 AM Interval History: Assumed care reviewed chart. Patient tolerated clears however felt he overdid it. Denies abdominal pain has some nausea. Is severely malnourished requesting help with nutrition. Denies any chest pain shortness of breath. We will hold if symptoms are negative. Physical Exam: Physical Exam Temp: 98.1 ??F (36.7 ??C) Temp src: Oral BP: (!) 152/105 Pulse: 89 Heart Rate: 83 Resp: 18 SpO2: 95 % O2 Device: None (Room air) Vitals: 04/16/20 1824 Weight: 43.9 kg (96 lb 12.8 oz) I/O last 3 completed shifts: In: 6746.67 [P.O.:6000; I.V.:746.67] Out: 775 [Urine:775] GENERAL: Comfortable. Cachectic PSYCH: pleasant, oriented, No acute distress. EYES: PERRLA, Normal conjunctiva. HEART: Normal S1, S2 with no edema. LUNGS: Clear to auscultation, normal Respiratory effort. ABDOMEN: Epigastric tenderness, no hepatosplenomegaly, normal bowel sounds. SKIN: Dry to touch, No rash. Medications ??? 0.9% sodium chloride + KCl 20 mEq/L 100 mL/hr at 04/18/20 1536 ??? aspirin 325 mg Oral Daily ??? atenolol 25 mg Oral Daily with supper ??? fluticasone-vilanterol 1 puff Inhalation Daily ??? nicotine 1 patch Transdermal Daily ??? nicotine Transdermal Q8H ??? sodium chloride (PF) 3 mL Intracatheter Q8H ??? sodium chloride (PF) 3 mL Intracatheter Q8H ??? IV Fluid with vitamins Intravenous Q24H ??? umeclidinium 1 puff Inhalation Daily Data -Data reviewed today: I personally reviewed all new labs and imaging results over the last 24 hours. Recent Labs Lab 04/19/20 0710 04/17/20 0758 04/16/20 1310 WBC 8.4 8.8 9.1 HGB 10.7* 11.2* 13.5 HCT 33.5* 34.1* 38.3* MCV 114* 112* 110* PLT 261 239 269 Recent Labs Lab 04/19/20 0710 04/18/20 0617 04/17/20 1656 04/17/20 0758 NA 135 140 -- 141 POTASSIUM 4.2 3.9 4.1 3.1* CHLORIDE 107 110* -- 109 CO2 25 25 -- 25 ANIONGAP 3 5 -- 7 GLC 82 74 -- 71 BUN 5* 10 -- 14 CR 0.40* 0.44* -- 0.47* GFRESTIMATED >90 >90 -- >90 GFRESTBLACK >90 >90 -- >90 TRAY 6.9* 7.2* -- 7.4* No results found for this or any previous visit (from the past 24 hour(s)). This document was produced using voice recognition software Phillip Alexander MD - 04/18/2020 4:29 PM CDT [facility] - GASTROENTEROLOGY PROGRESS NOTE IMPRESSION: 1. Acute on chronic pancreatitis - likely due to ongoing alcohol and smoking. CT with PD dilaation, hazy density (could be acute pancreatitis and pseudocysts. 2. Alcohol dependence 3. Malnutrition 4. Increased LFTs - monitor RECOMMENDATIONS: 1. Stay at clears, advance tomorrow if tolerating 2. Await sill worker evaluation 3. Repeat CT in 4-6 weeks, follow-up in [facility] clinic and may need to consider EUS pending the CT results. Phillip Alexander [facility] - Digestive [facility] After 5 PM, please call [phone] SUBJECTIVE: Some discomfort after clear diet breakfast. OBJECTIVE: BP (!) 146/96 (BP Location: Right arm) Pulse 98 Temp 97.7 ??F (36.5 ??C) (Oral) Resp 16 Ht 1.727 m (5' 8) Wt 43.9 kg (96 lb 12.8 oz) SpO2 95% BMI 14.72 kg/m?? Temp (24hrs), Av.8 ??F (36.6 ??C), Min:97.7 ??F (36.5 ??C), Max:98 ??F (36.7 ??C) Patient Vitals for the past 72 hrs: Weight 04/16/20 1824 43.9 kg (96 lb 12.8 oz) PHYSICAL EXAM GEN: Alert, oriented x3, NAD. HRT: reg LUNGS: CTA ABD: +BS, non-tender, non-distended, no rebound or guarding. Additional Data: I have reviewed the patient's new clinical lab results: Recent Labs Lab Test 04/17/20 0758 04/16/20 1310 11/21/18 0821 09/12/16 0644 09/11/16 0545 09/04/16 0539 WBC 8.8 9.1 8.9 < > 10.9 15.3* < > 17.3* HGB 11.2* 13.5 9.6* < > 8.0* 7.8* < > 10.0* MCV 112* 110* 109* < > 105* 104* < > 105* PLT 239 269 338 < > 505* 713* < > 354 INR -- -- -- -- 1.27* 1.29* -- 1.00 < > = values in this interval not displayed. Recent Labs Lab Test 04/18/20 0604/17/20 1656 04/17/20 0758 04/16/20 1310 POTASSIUM 3.9 4.1 3.1* 2.6* CHLORIDE 110* -- 109 96 CO2 25 -- 25 34* BUN 10 -- 14 20 ANIONGAP 5 -- 7 6 Recent Labs Lab Test 04/18/20 0604/17/20 0758 04/16/20 1742 04/16/20 1310 11/20/18 0731 09/10/16 2250 08/30/16 1115 ALBUMIN -- 1.7* -- 2.4* -- 2.0* < > -- < > -- BILITOTAL -- 1.3 -- 1.6* -- 0.3 < > -- < > -- ALT -- 117* -- 192* -- 37 < > -- < > -- AST -- 28 -- 43 -- 24 < > -- < > -- PROTEIN -- -- 30* -- -- -- -- Negative -- 10* LIPASE 626* 617* -- 1,163* < > 1,356* < > -- < > -- < > = values in this interval not displayed. Carrie Gee MD - 04/18/2020 12:00 PM CDT Images from the original note were not included. [facility] Hospitalist Progress Note Admit 04/16/2020 12:33 PM Name: Hay Gutierrez Date of Service: 04/18/2020 Reason for Stay (Diagnosis): Acute on chronic pancreatitis Summary of hospital stay & Assessment/Plan: Summary of Stay: Hay Gutierrez is a 60 year old male who was admitted on 04/16/2020. 60 year old male admitted on 04/16/2020. He has a past medical history significant for hypertension, COPD, ongoing tobacco use disorder, alcohol dependence with ongoing abuse, stroke, and previous pancreatitis. He presented to emergency room with abdominal pain. Found to have acute on chronic pancreatitis, concern for pseudocysts. ?? 1. Acute on chronic pancreatitis. With appearance of pseudocysts on CT scan. Started clear liquid diet. Continuous IV fluids. Pain medications and nausea medications as needed. Gastroenterology consulted. Per GI, will need repeat CT in 4-6 weeks, pending this result, may need to consider EUS. ?? 2. Hypokalemia. Protocol. ?? 3. Probable severe malnutrition. Registered dietitian consulted. ?? 4. Tobacco use disorder. advised smoking cessation. nicotine patch. ?? 5. COPD. No acute exacerbation. Restart home inhalers. ?? 6. Hypertension. Blood pressure low normal. Hold lisinopril. Resume atenolol w parameter ?? 7. Alcohol dependence. States he has not had any alcohol in the past 10 days. EtOH level not elevated. Monitor for evidence of withdrawals. ?? 8. COVID-19 rule out. SARS-CoV-2 PCR negative. DVT Prophylaxis: Pneumatic Compression Devices Code Status: Full Code Disposition Plan Expected discharge in 2-3 days to prior living arrangement once pancreatitis resolves and can resumeoral intake. Entered: Carrie Gee 04/18/2020, 12:00 PM Interval History: Started clear liquid diet per GI. Feels slightly better. Patient seen and examined. No acute events over night. No fevers or chills. No chest pain or SOB. Answered patient questions. Physical Exam: Physical Exam Temp: 98 ??F (36.7 ??C) Temp src: Oral BP: (!) 121/95 Pulse: 98 Heart Rate: 82 Resp: 16 SpO2: 95 % O2 Device: None (Room air) Oxygen Delivery: 1.5 LPM Vitals: 04/16/20 1824 Weight: 43.9 kg (96 lb 12.8 oz) I/O last 3 completed shifts: In: 3110.67 [P.O.:500; I.V.:2610.67] Out: 975 [Urine:975] GENERAL: Comfortable. Cachectic PSYCH: pleasant, oriented, No acute distress. EYES: PERRLA, Normal conjunctiva. HEART: Normal S1, S2 with no edema. LUNGS: Clear to auscultation, normal Respiratory effort. ABDOMEN: Epigastric tenderness, no hepatosplenomegaly, normal bowel sounds. SKIN: Dry to touch, No rash. Medications ??? 0.9% sodium chloride + KCl 20 mEq/L 100 mL/hr at 04/18/20 0959 ??? aspirin 325 mg Oral Daily ??? atenolol 25 mg Oral Daily with supper ??? fluticasone-vilanterol 1 puff Inhalation Daily ??? nicotine 1 patch Transdermal Daily ??? nicotine Transdermal Q8H ??? sodium chloride (PF) 3 mL Intracatheter Q8H ??? sodium chloride (PF) 3 mL Intracatheter Q8H ??? IV Fluid with vitamins Intravenous Q24H ??? umeclidinium 1 puff Inhalation Daily Data -Data reviewed today: I personally reviewed all new labs and imaging results over the last 24 hours. Recent Labs Lab 04/17/20 0758 04/16/20 1310 WBC 8.8 9.1 HGB 11.2* 13.5 HCT 34.1* 38.3* MCV 112* 110* PLT 239 269 Recent Labs Lab 04/18/20 0617 04/17/20 1656 04/17/20 0758 04/16/20 1310 NA 140 -- 141 136 POTASSIUM 3.9 4.1 3.1* 2.6* CHLORIDE 110* -- 109 96 CO2 25 -- 25 34* ANIONGAP 5 -- 7 6 GLC 74 -- 71 107* BUN 10 -- 14 20 CR 0.44* -- 0.47* 0.58* GFRESTIMATED >90 -- >90 >90 GFRESTBLACK >90 -- >90 >90 TRAY 7.2* -- 7.4* 8.4* No results found for this or any previous visit (from the past 24 hour(s)). This document was produced using voice recognition software Scott Liriano MD - 04/17/2020 1:37 PM CDT Images from the original note were not included. [facility] Hospitalist Progress Note Admit 04/16/2020 12:33 PM Name: Hay Gutierrez Provider: Scott Liriano MD, [facility] Date of Service: 04/17/2020 Reason for Stay (Diagnosis): Acute on chronic pancreatitis Summary of hospital stay & Assessment/Plan: Summary of Stay: Hay Gutierrez is a 60 year old male who was admitted on 04/16/2020 60 year old male admitted on 04/16/2020. He has a past medical history significant for hypertension, COPD, ongoing tobacco use disorder, alcohol dependence with ongoing abuse, stroke, and previous pancreatitis. He presented to emergency room with abdominal pain. Found to have acute on chronic pancreatit is, concern for pseudocysts. ?? 1. Acute on chronic pancreatitis. With appearance of pseudocysts on CT scan. N.p.o. Continuous IV fluids. Pain medications and nausea medications as needed. Gastroenterology consulted. ?? 2. Hypokalemia. replace . ?? 3. Probable severe malnutrition. Registered dietitian consulted. Resume diet once he is off IV pain medication or consider enteral feeding if he continues to be on pain medication beyond 2 days ?? 4. Tobacco use disorder. advised smoking cessation. nicotine patch. ?? 5. COPD. No acute exacerbation. Restart home inhalers. ?? 6. Hypertension. Blood pressure low normal. Hold lisinopril. Resume atenolol w parameter ?? 7. Alcohol dependence. States he has not had any alcohol in the past 10 days. EtOH level not elevated. Monitor for evidence of withdrawals. ?? 8. COVID-19 rule out. SARS-CoV-2 PCR pending. DVT Prophylaxis: Pneumatic Compression Devices Code Status: Full Code Disposition Plan Expected discharge in 3 days to prior living arrangement once pancreatitis resolves and can resume oral intake. Entered: Scott Liriano 04/17/2020, 1:38 PM Interval History: Reports abdominal pain, tachycardia time, he wants ice chips. Today's plan detailed above discussed with nursing Physical Exam: Physical Exam Temp: 97.5 ??F (36.4 ??C) Temp src: Oral BP: 110/89 Pulse: 104 Heart Rate: 103 Resp: 18 SpO2: 90 % O2 Device: Nasal cannula Oxygen Delivery: 1.5 LPM Vitals: 04/16/20 1824 Weight: 43.9 kg (96 lb 12.8 oz) I/O last 3 completed shifts: In: 1550 [I.V.:1550] Out: 250 [Urine:250] GENERAL: Comfortable. Cachectic PSYCH: pleasant, oriented, No acute distress. EYES: PERRLA, Normal conjunctiva. HEART: Normal S1, S2 with no edema. LUNGS: Clear to auscultation, normal Respiratory effort. ABDOMEN: Epigastric tenderness, no hepatosplenomegaly, normal bowel sounds. SKIN: Dry to touch, No rash. Medications ??? sodium chloride 100 mL/hr at 04/17/20 1017 ??? aspirin 325 mg Oral Daily ??? atenolol 25 mg Oral Daily with supper ??? fluticasone-vilanterol 1 puff Inhalation Daily ??? nicotine 1 patch Transdermal Daily ??? nicotine Transdermal Q8H ??? sodium chloride (PF) 3 mL Intracatheter Q8H ??? sodium chloride (PF) 3 mL Intracatheter Q8H ??? IV Fluid with vitamins Intravenous Q24H ??? umeclidinium 1 puff Inhalation Daily Data -Data reviewed today: I personally reviewed all new labs and imaging results over the last 24 hours. Recent Labs Lab 04/17/20 0758 04/16/20 1310 WBC 8.8 9.1 HGB 11.2* 13.5 HCT 34.1* 38.3* MCV 112* 110* PLT 239 269 Recent Labs Lab 04/17/20 0758 04/16/20 1310 NA 141 136 POTASSIUM 3.1* 2.6* CHLORIDE 109 96 CO2 25 34* ANIONGAP 7 6 GLC 71 107* BUN 14 20 CR 0.47* 0.58* GFRESTIMATED >90 >90 GFRESTBLACK >90 >90 TRAY 7.4* 8.4* Recent Results (from the past 24 hour(s)) CT Abdomen Pelvis w Contrast Narrative CT ABDOMEN PELVIS W CONTRAST 04/16/2020 3:09 PM CLINICAL HISTORY: Right-sided abdominal pain. TECHNIQUE: CT scan of the abdomen and pelvis was performed following injection of IV contrast. Multiplanar reformats were obtained. Dose reduction techniques were used. CONTRAST: 61 mL Isovue-370 COMPARISON: None. FINDINGS: LOWER CHEST: Mild scattered scarring and/or atelectasis at both lung bases. Emphysematous changes are noted involving both lung bases. Coronary artery calcification. HEPATOBILIARY: Small area of low density in the medial segment of the left hepatic lobe is unchanged, and likely represents focal fatty infiltration. PANCREAS: Extensive pancreatic calcification is new since the previous exam, and is likely related to chronic pancreatitis. Dilatation of the pancreatic duct is new since the previous exam, and is also likely related to chronic pancreatitis, measuring up to 0.9 cm in the pancreatic head and neck. Ill-defined hazy increased density about the pancreas could be related to a superimposed acute pancreatitis. There are several rim-enhancing fluid collections adjacent to the pancreas, with the largest along the anterior aspect of the pancreatic head (series 4 image 97) measuring 3.8 x 2.9 cm. There is also an elongated fluid collection extending superiorly from the pancreatic tail into the retrocrural region along the right aspect of the distal esophagus (series 4 images 29-62). A smaller less well-defined fluid collection is also noted along the anterior inferior aspect of the pancreatic body (series 4 image 80). No air bubbles are seen within the peripancreatic fluid collection. SPLEEN: Normal. ADRENAL GLANDS: Normal. KIDNEYS/BLADDER: Normal. BOWEL: Colonic diverticulosis, without convincing evidence for diverticulitis. Unremarkable appendix. No bowel obstruction. PELVIC ORGANS: Normal. ADDITIONAL FINDINGS: There is advanced atherosclerotic aortoiliac calcification. There is a small amount of nonspecific free fluid in the pelvis as well as about the liver. MUSCULOSKELETAL: Unremarkable. Impression IMPRESSION: 1. Extensive pancreatic calcification and dilatation of the pancreatic duct is new since the previous exam, and likely related to chronic pancreatitis. 2. Hazy increased density about the pancreas is suspicious for some degree of superimposed acute pancreatitis. Clinical and laboratory correlation are recommended. 3. Several rim-enhancing peripancreatic fluid collections are new since the previous exam, and are suspicious for pseudocysts. 4. Small amount of ascites. 5. Emphysematous changes at both lung bases. TANYA HUBER MD XR Chest Port 1 View Narrative CHEST ONE VIEW 04/16/2020 3:54 PM HISTORY: Dyspnea COMPARISON: November 18, 2018 Impression IMPRESSION: No acute disease. JEAN MARIE TOMLINSON MD This document was produced using voice recognition software Cirilo Diaz - 04/17/2020 11:26 AM CDT SPIRITUAL HEALTH SERVICES: Tele-Encounter Patient Location (Hospital, [facility], Unit): [facility], 5th floor Spoke with (patient, family relationship): Patient Referral Source: Per pt request If applicable: patient was appropriately screened for telechaplaincy support with bedside nurse prior to visit (e.g. Mental Health and Addiction contexts). See call details below. DATA: Pt, Hay, shares that he wanted to speak with someone as this past weekend was the anniversary of his mother's 2 years ago. Her name was Nghia. He shared memories of growing up and eventually of her developing dementia and the care he and his sister provided, noting how emotionally chall enging it is to see you Mom fade away from you over 9 years. 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 He does identify as Alevism and declines offer of prayer at this time noting, I hope to get out of here soon. PLAN: No formal plans to follow. SH remains available. Fast Food Serverjeannie Diaz Type of service: Telephone Visit Fast Food Server has received verbal consent for a TelephoneVisit from the patient? Yes Distance Provider Location: designated [place] office or home office (secure setting) Mode of Communication: telephone (via [employer] phone or [employer] [id number] ([phone])) Marcia Tyson RN - 04/17/2020 6:37 AM CDT End of Shift Summary For vital signs and complete assessments, please see documentation flowsheets. Pertinent assessments: A&O, tachy at times, on tele monitoring, currently on 1.5L per pt request. C/O abdominal pain 6-8/10 IV Dilaudid x 4, denies any nausea. BS faint, hypo Major Shift Events COVID negative Treatment Plan: IVF, pain management Marcia Haywood RN - 04/16/2020 9:41 PM CDT DHARA govea, notified documented in this encounter H&P Notes Eliezer Marquis, DO - 04/16/2020 6:49 PM CDT [facility] History and Physical - Hospitalist Service Date of Admission: 04/16/2020 Assessment & Plan Hay Gutierrez is a 60 year old male admitted on 04/16/2020. He has a past medical history significant for hypertension, COPD, ongoing tobacco use disorder, alcohol dependence with ongoing abuse, stroke, and previous pancreatitis. He presented to emergency room with abdominal pain. Found to have acuteon chronic pancreatitis. 1. Acute on chronic pancreatitis. With appearance of pseudocysts on CT scan. N.p.o. Continuous IV fluids. Pain medications and nausea medications as needed. Gastroenterology consult. Recheck lipase tomorrow. 2. Hypokalemia. Start potassium replacement protocol. 3. Probable severe malnutrition. Registered dietitian consult. 4. Tobacco use disorder. I did advise smoking cessation. start nicotine patch. Have additional nicotine gum available if needed. 5. COPD. No acute exacerbation. Restart home inhalers. 6. Hypertension. Blood pressure fairly low at this time. Hold lisinopril and atenolol initially. 7. Alcohol dependence. States he has not had any alcohol in the past 10 days. EtOH level not elevated. Start IV vitamins. Monitor for evidence of withdrawals. 8. COVID-19 rule out. SARS-CoV-2 PCR pending. Diet: NPO for Medical/Clinical Reasons Except for: No Exceptions DVT Prophylaxis: Pneumatic Compression Devices [place] Catheter: not present Code Status: Full Code Rule Out COVID-19 Handoff: Hay is a LOW SUSPICION PUI. Follow these instructions: ?? If COVID test positive -> continue isolation precautions ?? If COVID test negative -> discontinue COVID-specific isolation precautions Disposition Plan Expected discharge: 2 - 3 days, recommended to prior living arrangement Eliezer Marquis, DO [facility] Chief Complaint Abdominal pain. History is obtained from the patient. Due to current COVID 19 pandemic concerns, patient was seen remotely by telemedicine. History of Present Illness aHy Gutierrez is a 60 year old male who has a past medical history significant for hypertension, COPD, ongoing tobacco use disorder, alcohol dependence with ongoing abuse, stroke, and previous pancreatitis. He developed diarrhea, nausea, and vomiting approximately 3 weeks ago. Symptoms started a couple days after family members had developed similar symptoms. He did have diarrhea for several days. Was also vomiting for several days. Symptoms have actually gotten better over the past week. This morning, he woke up again with severe abdominal pain. Pain was mostly in the right lower quadrant. He again developed nausea with this. He has not had any diarrhea for the past few days. Has not noticed any fevers or chills. He does state that he has a chronic cough due to his COPD. Cough is unchanged from baseline. Also has chronic shortness of breath due to his COPD. Shortness of breath is also unchanged from baseline. He has not been eating or drinking well due to his recent symptoms. He usually drinks too much alcohol. However, he has not had any alcohol for the past 10 days. Does continue to smokehalf a pack of cigarettes or more a day. Is feeling quite a bit better after medications given in the emergency room. No other acute complaints. Review of Systems The 10 point Review of Systems is negative other than noted in the HPI Past Medical History I have reviewed this patient's medical history and updated it with pertinent information if needed. Past Medical History: Diagnosis Date ??? Alcohol abuse ??? COPD (chronic obstructive pulmonary disease) (H) ??? 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 HTN (hypertension) ??? Pancreatitis ??? Sciatic nerve pain Past Surgical History I have reviewed this patient's surgical history and updated it with pertinent information if needed. No past surgical history on file. Social History I have reviewed this patient's social history and updated it with pertinent information if needed. Social History Tobacco Use ??? Smoking status: Current Every Day Smoker Packs/day: 1.00 Years: 28.00 Pack years: 28.00 Substance Use Topics ??? Alcohol use: Yes Alcohol/week: 1.7 standard drinks Types: 2 Cans of beer per week ??? Drug use: No Family History I have reviewed this patient's family history and updated it with pertinent information if needed. Family History Problem Relation Age of Onset ??? Cancer Father ??? Cancer Sister Prior to Admission Medications Prior to Admission Medications Prescriptions Last Dose Informant Patient Reported? Taking? ASPIRIN EC PO Yes No Sig: Take 325 mg by mouth daily ATENOLOL PO Yes No Sig: Take 25 mg by mouth daily (with dinner) Cholecalciferol (VITAMIN D3 PO) Yes No Sig: Take 1,000 Units by mouth daily LISINOPRIL PO Yes No Sig: Take 20 mg by mouth daily (with dinner) fluticasone - vilanterol (BREO ELLIPTA) 100-25 MCG/INH oral inhaler Yes No Sig: Inhale 1 puff into the lungs daily folic acid (FOLVITE) 1 MG tablet No No Sig: Take 1 tablet (1 mg) by mouth daily multivitamin, therapeutic with minerals (THERA-VIT-M) TABS tablet No No Sig: Take 1 tablet by mouth daily umeclidinium bromide (INCRUSE ELLIPTA) 62.5 MCG/INH inhalation capsule Yes No Sig: Inhale 62.5 mcg into the lungs daily Facility-Administered Medications: None Allergies No Known Allergies Physical Exam Vital Signs: Temp: 95.8 ??F (35.4 ??C) Temp src: Oral BP: 113/82 Pulse: 104 Heart Rate: 105 Resp: 24SpO2: 95 % O2 Device: None (Room air) Weight: 96 lbs 12.8 oz Gen: Very cachectic, NAD, A&Ox3. Resp: Breathing appears comfortable at this time. Speaking in full sentences without problems. Is not obviously short of breath. For rest of physical exam, I did discuss with Uri Golden PA-C. I also reviewed physical exam from his note that was created at 12:37 on 04/16/2020. He also notes that the patient appears cachectic. Data Data reviewed today: I reviewed all medications, new labs and imaging results over the last 24 hours. I personally reviewed the EKG tracing showing Sinus rhythm. Recent Labs Lab 04/16/20 1310 WBC 9.1 HGB 13.5 MCV 110* PLT 269 NA 136 POTASSIUM 2.6* CHLORIDE 96 CO2 34* BUN 20 CR 0.58* ANIONGAP 6 TRAY 8.4* GLC 107* ALBUMIN 2.4* PROTTOTAL 7.0 BILITOTAL 1.6* ALKPHOS 134 ALT 192* AST 43 LIPASE 1,163* documented in this encounter Consult Notes Tyesha Sanford - 04/22/2020 10:39 AM CDTAssociated Order(s): OPERATING ROOM SCHEDULER IP CONSULT Care Transition Initial Assessment - RN Met with: Patient. DATA Active Problems: Pancreatitis Cognitive Status: awake, alert and oriented. Contact information and PCP information verified: Yes Lives With: child(allyson), dependent, spouse Living Arrangements: house Quality of Family Relationships: helpful, supportive Insurance concerns: No Insurance issues identified ASSESSMENT Patient currently receives the following services: none Identified issues/concerns regarding health management: Patient presented to the hospital ED with abdominal pain, found to have acute and chronic pancreatitis concerns for pseudocyst. PMH includes HTN, COPD not in exacerbation, ongoing tobacco and alcohol use. He is found to be generally malnourished. PLAN Financial costs for the patient were not addressed . Patient given options and choices for discharge yes . Pt/family was provided with the Medicare Compare list for Home Care. Discussed associated Medicare star ratings to assist with choice for referrals/discharge planning Yes Patient is open to having HC services. [email or web address] scheduled to [facility] patient for PT and RN services within 24-48 hours. Education was given to pt/family that star ratings are updated/maintained by Medicare and can be reviewed by visiting www.medicare.gov Yes Patient/family is agreeable to the plan? Yes: Patient anticipates discharging to home . Patient anticipates needs for home equipment: Yes Transportation/person available to transport on day of discharge is . Plan/Disposition: Home Appointments: Hospital follow up appointment has been scheduled for you with Dr. Champagne at [facility] for April 26, 2020 at 10:20 AM. This will be a telephonic visit Care Non Licensed Nuclear Equipment Operator (CTS) will continue to follow as needed. Tyesha Sanford RN, BSN, PHN, CTS Logistics Analytics Manager [facility] [phone], LD - 04/19/2020 12:07 PM CDTAssociated Order(s): NUTRITION SERVICES ADULT IP CONSULT CLINICAL NUTRITION SERVICES - BRIEF NOTE - Received MD consult with comment, severe malnutrition. - Patient known to this underwriter with RD assessment completed 04/17/2020. - Noted diet advancement to low fat per GI. - Added Boost BID between meals. Previously discussed high calorie/high protein options. - Will continue following. Heaven Covington RDN, [facility] Clinical Dietitian 3rd floor/ICU: [phone] All other floors: [phone] Weekend/holiday: [phone] T Phillip Alexander MD - 04/17/2020 3:11 PM CDTAssociated Order(s): GASTROENTEROLOGY IP CONSULT [facility] - GASTROENTEROLOGY CONSULTATION Hay Gutierrez [id number] [facility] [id number] 60 year old male Admission Date/Time: 04/16/2020 Primary Care Provider: Sammie Salguero [place] We were asked to see the patient in consultation by Dr. Marquisfor evaluation of pancreatitis. ASSESSMENT: 1. Acute on chronic pancreatitis - likely due to ongoing alcohol use and continues to smoke. New pancreatic duct dilation, hazy density (could be acute pancreatitis) and pseudocysts. 2. Alcohol dependence - none in 10 days, but prior a lower level from past drinking 2 drinks 4 timesa week, but in past drinking to point of intoxication twice a day. 3. Malnutrition - sill worker consulted 4. Increased liver enzymes - increased bilirubin on admit, now normal. ALT increased. RECOMMENDATIONS: 1. Start clears 2. IV fluid and pain mgmt per primary service. 3. Will need repeat CT in 4-6 weeks, pending this result, may need to consider EUS. Phillip Alexander MD [facility] - [facility] After 5 PM, please call [phone] HPI: Hay Gutierrez is a 60 year old male who has a history of alcohol abuse, COPD, CVA, pancreatitis, etc. He had nausea, vomiting and diarrhea a few weeks ago with family members having similar symptoms. Symptoms improved, but he developed significant abdominal pain. He feels better since yesterday. ROS: A comprehensive ten point review of systems was negative aside from those in mentioned in the HPI. PAST MEDICAL HISTORY: Past Medical History: Diagnosis Date ??? Alcohol abuse ??? COPD (chronic obstructive pulmonary disease) (H) ??? 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 HTN (hypertension) ??? Pancreatitis ??? Sciatic nerve pain SOCIAL HISTORY: Social History Tobacco Use ??? Smoking status: Current Every Day Smoker Packs/day: 1.00 Years: 28.00 Pack years: 28.00 Substance Use Topics ??? Alcohol use: Yes Alcohol/week: 1.7 standard drinks Types: 2 Cans of beer per week ??? Drug use: No FAMILY HISTORY: Family History Problem Relation Age of Onset ??? Cancer Father ??? Cancer Sister ALLERGIES: No Known Allergies MEDICATIONS: Prior to Admission medications Medication Sig Start Date End Date Taking? Authorizing Provider aspirin (ASA) 325 MG EC tablet Take 325 mg by mouth daily Yes Unknown, Entered By History atenolol (TENORMIN) 25 MG tablet Take 25 mg by mouth daily (with dinner) Yes Unknown, Entered By History fluticasone - vilanterol (BREO ELLIPTA) 100-25 MCG/INH oral inhaler Inhale 1 puff into the lungs daily Yes Unknown, Entered By History lisinopril (ZESTRIL) 20 MG tablet Take 20 mg by mouth daily (with dinner) Yes Unknown, Entered By History acetaminophen (TYLENOL) 500 MG tablet Take 1,000 mg by mouth once as needed for mild pain Unknown, Entered By History umeclidinium bromide (INCRUSE ELLIPTA) 62.5 MCG/INH inhalation capsule Inhale 62.5 mcg into the lungs daily Unknown, Entered By History PHYSICAL EXAM: BP 110/89 (BP Location: Right arm) Pulse 104 Temp 97.5 ??F (36.4 ??C) (Oral) Resp 18 Ht 1.727 m (5' 8) Wt 43.9 kg (96 lb 12.8 oz) SpO2 90% BMI 14.72 kg/m?? GEN: Alert, oriented x3, NAD. Cachetic JOSELUIS: AT, anicteric, OP without erythema, exudate, or ulcers. NECK: Supple. LYMPH: No LAD noted. HRT: RRR, no YTLER LUNGS: CTA ABD: +BS, mild tender - right side, non-distended, no rebound or guarding. SKIN: No rash, jaundice NEURO: MS intact ADDITIONAL DATA: I reviewed the patient's new clinical lab test results. Recent Labs Lab Test 04/17/2075704/16/20 1310 11/21/18 0821 09/12/16 0644 09/11/16 0545 09/04/16 0539 WBC 8.8 9.1 8.9 < > 10.9 15.3* < > 17.3* HGB 11.2* 13.5 9.6* < > 8.0* 7.8* < > 10.0* MCV 112* 110* 109* < > 105* 104* < > 105* PLT 239 269 338 < > 505* 713* < > 354 INR -- -- -- -- 1.27* 1.29* -- 1.00 < > = values in this interval not displayed. Recent Labs Lab Test 04/17/2075704/16/20 1310 11/21/18 0821 POTASSIUM 3.1* 2.6* 3.4 CHLORIDE 109 96 101 CO2 25 34* 28 BUN 14 20 4* ANIONGAP 7 6 5 Recent Labs Lab Test 04/17/2075704/16/20 1742 04/16/20 1310 11/21/18 0821 11/20/18 0731 09/10/16 2250 08/30/16 1115 ALBUMIN 1.7* -- 2.4* -- 2.0* < > -- < > -- BILITOTAL 1.3 -- 1.6* -- 0.3 < > -- < > -- ALT 117* -- 192* -- 37 < > -- < > -- AST 28 -- 43 -- 24 < > -- < > -- PROTEIN -- 30* -- -- -- -- Negative -- 10* LIPASE 617* -- 1,163* 636* 1,356* < > -- < > -- < > = values in this interval not displayed. I reviewed the patient's new imaging results. CT ABDOMEN PELVIS W CONTRAST 04/16/2020 3:09 PM ?? CLINICAL HISTORY: Right-sided abdominal pain. ?? TECHNIQUE: CT scan of the abdomen and pelvis was performed following injection of IV contrast. Multiplanar reformats were obtained. Dose reduction techniques were used. CONTRAST: 61 mL Isovue-370 ?? COMPARISON: None. ?? FINDINGS: LOWER CHEST: Mild scattered scarring and/or atelectasis at both lung bases. Emphysematous changes are noted involving both lung bases. Coronary artery calcification. ?? HEPATOBILIARY: Small area of low density in the medial segment of the left hepatic lobe is unchanged, and likely represents focal fatty infiltration. ?? PANCREAS: Extensive pancreatic calcification is new since the previous exam, and is likely related to chronic pancreatitis. Dilatation of the pancreatic duct is new since the previous exam, and is also likely related to chronic pancreatitis, measuring up to 0.9 cm in the pancreatic head and neck. Ill-defined hazy increased density about the pancreas could be related to a superimposed acute pancreatitis. There are several rim-enhancing fluid collections adjacent to the pancreas, with the largest along the anterior aspect of the pancreatic head (series 4 image 97) measuring 3.8 x 2.9 cm. There is also an elongated fluid collection extending superiorly from the pancreatic tail into the retrocrural region along the right aspect of the distal esophagus (series 4 images 29-62). A smaller less well-defined fluid collection is also noted along the anterior inferior aspect of the pancreatic body (series 4 image 80). No air bubbles are seen within the peripancreatic fluid collection. ?? SPLEEN: Normal. ?? ADRENAL GLANDS: Normal. ?? KIDNEYS/BLADDER: Normal. ?? BOWEL: Colonic diverticulosis, without convincing evidence for diverticulitis. Unremarkable appendix. No bowel obstruction. ?? PELVIC ORGANS: Normal. ?? ADDITIONAL FINDINGS: There is advanced atherosclerotic aortoiliac calcification. There is a small amount of nonspecific free fluid in the pelvis as well as about the liver. ?? MUSCULOSKELETAL: Unremarkable. ?? IMPRESSION: 1. Extensive pancreatic calcification and dilatation of the pancreatic duct is new since the previous exam, and likely related to chronic pancreatitis. 2. Hazy increased density about the pancreas is suspicious for some degree of superimposed acute pancreatitis. Clinical and laboratory correlation are recommended. 3. Several rim-enhancing peripancreatic fluid collections are new since the previous exam, and are suspicious for pseudocysts. 4. Small amount of ascites. 5. Emphysematous changes at both lung bases. Heaven Covington RD, LD - 04/17/2020 12:22 PM CDTAssociated Order(s): NUTRITION SERVICES ADULT IP CONSULT CLINICAL NUTRITION SERVICES - ASSESSMENT NOTE MALNUTRITION: % Weight Loss: > 7.5% in 3 months (severe malnutrition) % Intake: </= 50% for >/= 5 days (severe malnutrition) Subcutaneous Fat Loss: Unable to complete physical exam Muscle Loss: Unable to complete physical exam Fluid Retention: None documented Malnutrition Diagnosis: Severe malnutrition In Context of: Acute illness or injury Chronic illness or disease Environmental or social circumstances Unable to determine due to lack of physical exam (per direction of department guidelines in the setting of COVID19) REASON FOR ASSESSMENT Hay Gutierrez is a 60 year old male seen by Registered Dietitian for Admission Nutrition Risk Screen for reduced oral intake over the last month and Provider Order - severe malnutrition. PMH of: HTN, COPD, alcohol abuse, stroke, pancreatitis. Admit 2/2: Acute on chronic pancreatitis. NUTRITION HISTORY - Information obtained from patient via phone (per direction of department guidelines in the settingof COVID19). - Diet at home: Regular. - Usual intakes: Meals BID when feeling well. Also aims for 1 Ensure daily. - Barriers to PO intakes: Unable to eat much over the past 2-3 weeks other than soups. Describes initially nausea with dry heaving, diarrhea, then abdominal pain. Could not keep down pills even. 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 - Chewing/swallowing issues: Denied. - Meal preparation/grocery shopping: Patient or . - Allergies: NKFA. CURRENT NUTRITION ORDERS Diet Order: NPO Current Intake/Tolerance: NPO since admission, ongoing abdominal pain. He would like to receive strawberry or vanilla Boost between meals with diet advancement. NUTRITION FOCUSED PHYSICAL ASSESSMENT FOR DIAGNOSING MALNUTRITION) No: per direction of department guidelines in the setting of COVID19 Observed: deferred d/t above Obtained from Chart/Interdisciplinary Team: - No documentation of skin issues - Stooling patterns reviewed, no recorded BM since admission ANTHROPOMETRICS Height: 5' 8 Weight: 96 lbs 12.8 oz Body mass index is 14.72 kg/m??. Weight Status: Underweight BMI <18.5 Weight History: Wt Readings from Last 10 Encounters: 04/16/20 43.9 kg (96 lb 12.8 oz) 11/21/18 55.2 kg (121 lb 9.6 oz) 03/27/18 54.1 kg (119 lb 3.2 oz) 11/09/16 55.1 kg (121 lb 6.4 oz) 09/27/16 53.4 kg (117 lb 12.8 oz) 09/26/16 53.4 kg (117 lb 12.8 oz) 09/21/16 58.1 kg (128 lb) 09/20/16 53.9 kg (118 lb 12.8 oz) 11/05/15 55.2 kg (121 lb 12.8 oz) 04/30/15 57.8 kg (127 lb 6.8 oz) - Chronically underweight over the past at least 1 year. 21% wt loss in ~1.5 years, or less. - Patient himself reports he has never been below 100#. Knows he weighed 107 pounds 2 months ago or less, this would equate to a 10% loss. LABS Labs reviewed: Electrolytes Potassium (mmol/L) Date Value 04/17/2020 3.1 (L) 04/16/2020 2.6 (LL) 11/21/2018 3.4 Phosphorus (mg/dL) Date Value 03/31/2018 2.6 03/28/2018 2.7 09/22/2016 4.3 09/20/2016 3.8 09/18/2016 4.8 (H) Blood Glucose Glucose (mg/dL) Date Value 04/17/2020 71 04/16/2020 107 (H) 11/21/2018 86 11/20/2018 73 11/19/2018 84 Hemoglobin A1C (%) Date Value 09/02/2016 4.9 04/30/2015 5.4 Inflammatory Markers CRP Inflammation (mg/L) Date Value 03/27/2018 <2.9 WBC (10e9/L) Date Value 04/17/2020 8.8 04/16/2020 9.1 11/21/2018 8.9 Albumin (g/dL) Date Value 04/17/2020 1.7 (L) 04/16/2020 2.4 (L) 11/20/2018 2.0 (L) Magnesium (mg/dL) Date Value 04/17/2020 1.8 03/31/2018 1.7 03/27/2018 1.7 Sodium (mmol/L) Date Value 04/17/2020 141 04/16/2020 136 11/21/2018 134 Renal Urea Nitrogen (mg/dL) Date Value 04/17/2020 14 04/16/2020 20 11/21/2018 4 (L) Creatinine (mg/dL) Date Value 04/17/2020 0.47 (L) 04/16/2020 0.58 (L) 11/21/2018 0.56 (L) Additional Ketones Urine (mg/dL) Date Value 04/16/2020 Negative B/P: 112/88, T: 97.4, P: 104, R: 18 MEDICATIONS Medications reviewed: ??? nicotine 1 patch Transdermal Daily ??? nicotine Transdermal Q8H ??? sodium chloride (PF) 3 mL Intracatheter Q8H ??? sodium chloride (PF) 3 mL Intracatheter Q8H ??? IV Fluid with vitamins Intravenous Q24H ??? sodium chloride 100 mL/hr at 04/17/20 1017 ASSESSED NUTRITION NEEDS PER APPROVED PRACTICE GUIDELINES: Dosing Weight 44 kg Estimated Energy Needs:2995-0871 kcals (40-45 kcal/kg) Justification: underweight Estimated Protein Needs: 88-110 grams protein (2-2.5 g pro/Kg) Justification: Repletion and preservation of lean body mass Estimated Fluid Needs: per MD NUTRITION DIAGNOSIS: Malnutrition related to previous nausea, diarrhea, and dry heaving, now abdominal pain, likely etoh contribution all leading to decreased oral intakes and wt loss as evidenced by meeting <50% needs for period of weeks and to maintain such a low BMI, 10% wt loss in <3 months. NUTRITION INTERVENTIONS Recommendations / Nutrition Prescription Diet advancement per MD. With advancement, would recommend high calorie/high protein diet and will need oral nutrition supplement offerings. Given BMI, low threshold for nutrition support interventions, pending clinical progression. Add-on phosphorus given history (ordered per staff rec). Implementation Nutrition education: Discussed Boost with diet advancement. Nutrition Goals Diet advancement vs need for nutrition support w/in 48-72 hrs. MONITORING AND EVALUATION: Progress towards goals will be monitored and evaluated per protocol and Practice Guidelines Heaven Covington RDN, LD Clinical Dietitian 3rd floor/ICU: [phone] All other floors: [phone] Weekend/holiday: [phone] documented in this encounter ED Notes Paz Avendaño RN - 04/16/2020 4:06 PM CDT [facility] ED Nurse Handoff Report Hay Gutierrez is a 60 year old male ED Chief complaint: Abdominal Pain and Shortness of Breath . ED Diagnosis: Final diagnoses: Acute pancreatitis Pancreatic pseudocyst Dyspnea Allergies: No Known Allergies Code Status: Full Code Activity level - Baseline/Home: Independent. Activity Level - Current: Assist X 1. Lift room needed:No. Bariatric: No Data Architect Manager Needed: Yes Isolationyes Infection: covid rule out Vital Signs: Vitals: 04/16/20 1515 04/16/20 1530 04/16/20 1545 04/16/20 1551 BP: (!) 131/93 125/89 117/84 Pulse: 75 87 86 Resp: 20 Temp: TempSrc: SpO2: 95% 94% 94% Cardiac Rhythm: , Cardiac Cardiac Rhythm: Normal sinus rhythm Pain level: 0-10 Pain Scale: 6 Patient confused: No. Patient Falls Risk: Yes. Elimination Status: Has voided Patient Report - Initial Complaint: Abdominal pain with nausea and SOB. Focused Assessment:ABD pain and nausea with SOB x 1 week. Tests Performed: CT and labs. Abnormal Results: Labs Ordered and Resulted from Time of ED Arrival Up to the Time of Departure from the ED CBC WITH PLATELETS DIFFERENTIAL - Abnormal; Notable for the following components: Result Value RBC Count 3.49 (*) Hematocrit 38.3 (*) MCV 110 (*) MCH 38.7 (*) RDW 17.2 (*) All other components within normal limits COMPREHENSIVE METABOLIC PANEL - Abnormal; Notable for the following components: Potassium 2.6 (*) Carbon Dioxide 34 (*) Glucose 107 (*) Creatinine 0.58 (*) Calcium 8.4 (*) Bilirubin Total 1.6 (*) Albumin 2.4 (*) ALT 192 (*) All other components within normal limits LIPASE - Abnormal; Notable for the following components: Lipase 1,163 (*) All other components within normal limits LACTIC ACID WHOLE BLOOD - Abnormal; Notable for the following components: Lactic Acid 2.3 (*) All other components within normal limits ROUTINE UA WITH MICROSCOPIC REFLEX TO CULTURE COVID-19 VIRUS (CORONAVIRUS) BY PCR LACTIC ACID WHOLE BLOOD XR Chest Port 1 View Preliminary Result IMPRESSION: No acute disease. CT Abdomen Pelvis w Contrast Preliminary Result IMPRESSION: 1. Extensive pancreatic calcification and dilatation of the pancreatic duct is new since the previous exam, and likely related to chronic pancreatitis. 2. Hazy increased density about the pancreas is suspicious for some degree of superimposed acute pancreatitis. Clinical and laboratory correlation are recommended. 3. Several rim-enhancing peripancreatic fluid collections are new since the previous exam, and are suspicious for pseudocysts. 4. Small amount of ascites. 5. Emphysematous changes at both lung bases. Treatments provided: IV fluids. And potassium replacement Family Comments: notified ad updated on plan of care OBS brochure/video discussed/provided to patient: Yes ED Medications: Medications 0.9% sodium chloride BOLUS (0 mLs Intravenous Stopped 04/16/20 1412) Followed by sodium chloride 0.9% infusion (1,000 mLs Intravenous New Bag 04/16/20 5153) ondansetron (ZOFRAN) injection 4 mg (4 mg Intravenous Given 04/16/20 1305) 0.9% sodium chloride BOLUS (1,000 mLs Intravenous New Bag 04/16/20 1517) HYDROmorphone (PF) (DILAUDID) injection 0.5 mg (0.5 mg Intravenous Given 04/16/20 1305) potassium chloride 10 mEq in 100 mL intermittent infusion with 10 mg lidocaine (0 mEq Intravenous Stopped 04/16/20 1546) potassium chloride (KLOR-CON) Packet 40 mEq (40 mEq Oral Given 04/16/20 1427) iopamidol (ISOVUE-370) solution 61 mL (61 mLs Intravenous Given 04/16/20 1502) sodium chloride (PF) 0.9% PF flush 51 mL (51 mLs Intravenous Given 04/16/20 1502) Drips infusing: Yes For the majority of the shift, the patient's behavior Green. Interventions performed were none. Sepsis treatment initiated: Yes Per the ED Provider, Time Zero for severe sepsis or septic shock is: 1310 3 Hour Severe Sepsis Bundle Completion: 1. Initial Lactic Acid Result: Recent Labs Lab Test 04/16/20 1310 03/27/18 1510 03/27/18 0859 LACT 2.3* 1.5 2.7* 2. Blood Cultures before Antibiotics: No 3. Broad Spectrum Antibiotics Administered: Anti-infectives (From now, onward) None 4. 2000 ml of IV fluids have been given so far 6 Hour Severe Sepsis Bundle Completion: 1. Repeat Lactic Acid Level: drawn awaiting results 2. Patient currently on Vasopressors = No ED Nurse Name/Phone Number: Marcia Llanos RN, 4:06 PM RECEIVING UNIT ED HANDOFF REVIEW Above ED Nurse Handoff Report was reviewed: Yes Reviewed by: Paz Avendaño RN on April 16, 2020 at 5:52 PM Lyudmila Manuel RN - 04/16/2020 11:36 AM CDT Abdominal pain x 2 week. SOB. ABC intact alert and no distress. Uri Golden PA-C - 04/16/2020 11:29 AM CDT History Chief Complaint: Abdominal Pain and Shortness of Breath HPI Hay Gutierrez is a 60 year old male with a history of COPD, CVA, hypertension, alcoholic pancreatitis, and alcohol abuse who presents to the emergency department for evaluation of abdominal pain and shortness of breath. The patient reports that about three weeks ago his kids came home and there was a GI illness running through his family consisting of abdominal pain, diarrhea, and appetite loss. This resolved, and for the last 5 days he's had good appetite and feeling well. However, last night he then had the onset of severe, right sided, sharp abdominal pain that has remained constant since. However, he notes that it has been mildly sore for the last few weeks. The pain worsens with coughing and sitting up. He took Tylenol this morning with no improvement. He states this might feel similar to his prior episodes of pancreatitis. He has not drank alcohol in 10 days. No fevers, chills, chest pain, worsening shortness of breath, nausea, vomiting, black or bloody stools, or diarrhea. Allergies: No Known Drug Allergies Medications: Aspirin Atenolol Breo Ellipta Folvite Lisinopril Incruse Ellipta Past Medical History: Alcohol abuse COPD CVA Hypertension Pancreatitis Sepsis Pneumonia Severe malnutrition Candidemia Vitamin D deficiency Past Surgical History: History reviewed. No pertinent past surgical history. Family History: Cancer Social History: Tobacco Use: Daily, 1 ppd Alcohol Use: Yes [facility] Status: Review of Systems Constitutional: Negative for chills and fever. Respiratory: Positive for shortness of breath (baseline). Cardiovascular: Negative for chest pain. Gastrointestinal: Positive for abdominal pain. Negative for blood in stool, diarrhea, nausea and vomiting. All other systems reviewed and are negative. Physical Exam Patient Vitals for the past 24 hrs: BP Temp Temp src Pulse Heart Rate Resp SpO2 04/16/20 1551 117/84 -- -- 86 -- 20 94 % 04/16/20 1545 -- -- -- -- 94 -- 94 % 04/16/20 1530 125/89 -- -- 87 88 -- 95 % 04/16/20 1515 (!) 131/93 -- -- 75 -- -- -- 04/16/20 1445 (!) 145/98 -- -- 81 79 27 -- 04/16/20 1430 (!) 122/98 -- -- 91 86 20 -- 04/16/20 1415 (!) 119/91 -- -- 78 -- 25 95 % 04/16/20 1400 110/87 -- -- 85 -- -- -- 04/16/20 1345 (!) 130/96 -- -- 78 -- -- -- 04/16/20 1330 (!) 147/97 -- -- 74 -- -- 100 % 04/16/20 1315 (!) 141/95 -- -- 74 -- -- 94 % 04/16/20 1300 (!) 131/95 -- -- 72 -- -- 96 % 04/16/20 1131 96/73 98.2 ??F (36.8 ??C) Oral -- 86 22 99 % Physical Exam Constitutional: Pleasant. Cooperative. Cachetic appearing. Eyes: Pupils equally round and reactive HENT: Head is normal in appearance. Dry mucous membranes. Cardiovascular: Regular rate and rhythm and without murmurs. Respiratory: Normal respiratory effort, lungs are clear bilaterally. GI: Right-sided TTP. Otherwise non-tender, soft, non-distended. No guarding, rebound, or rigidity. Musculoskeletal: No asymmetry of the lower extremities, no tenderness to palpation. Skin: Normal, without rash. Neurologic: Cranial nerves grossly intact, normal cognition, no focal deficits. Alert and oriented x3. Psychiatric: Normal affect. Nursing notes and vital signs reviewed. Emergency Department Course ECG: @ 1407 Indication: abdominal pain, shortness of breath Vent. Rate 77 bpm. [place] interval 168 ms. QRS duration 68 ms. QT/QTc 418/473 ms. P-R-T axis 83 -2 63. Sinus rhythm. Low voltage QRS. Nonspecific T wave abnormality. Abnormal ECG. Read by Uri Golden PA-C. Imaging: Abdomen/Pelvis CT with IV contrast: IMPRESSION: 1. Extensive pancreatic calcification and dilatation of the pancreatic duct is new since the previous exam, and likely related to chronic pancreatitis. 2. Hazy increased density about the pancreas is suspicious for some degree of superimposed acute pancreatitis. Clinical and laboratory correlation are recommended. 3. Several rim-enhancing peripancreatic fluid collections are new since the previous exam, and are suspicious for pseudocysts. 4. Small amount of ascites. 5. Emphysematous changes at both lung bases. Report per radiology. Chest XR Port 1 View: IMPRESSION: No acute disease. Reading per radiology. Radiographic findings were communicated with the patient who voiced understanding of the findings. Laboratory: Labs Ordered and Resulted from Time of ED Arrival Up to the Time of Departure from the ED CBC WITH PLATELETS DIFFERENTIAL - Abnormal; Notable for the following components: Result Value RBC Count 3.49 (*) Hematocrit 38.3 (*) MCV 110 (*) MCH 38.7 (*) RDW 17.2 (*) All other components within normal limits COMPREHENSIVE METABOLIC PANEL - Abnormal; Notable for the following components: Potassium 2.6 (*) Carbon Dioxide 34 (*) Glucose 107 (*) Creatinine 0.58 (*) Calcium 8.4 (*) Bilirubin Total 1.6 (*) Albumin 2.4 (*) ALT 192 (*) All other components within normal limits LIPASE - Abnormal; Notable for the following components: Lipase 1,163 (*) All other components within normal limits LACTIC ACID WHOLE BLOOD - Abnormal; Notable for the following components: Lactic Acid 2.3 (*) All other components within normal limits COVID-19 VIRUS (CORONAVIRUS) BY PCR LACTIC ACID WHOLE BLOOD ROUTINE UA WITH MICROSCOPIC REFLEX TO CULTURE Interventions: 1258 0.9% Sodium Chloride BOLUS 1000 mLs IV 1305 Zofran 4 mg IV 1305 Dilaudid 0.5 mg IV 1413 Potassium chloride 10 mEq IV 1427 Klor-Con packet 40 mEq PO 1517 0.9% Sodium Chloride BOLUS 1000 mLs IV 1543 0.9% Sodium Chloride infusion 1000 mLs IV Emergency Department Course: 1239 Nursing notes and vitals reviewed. I performed an exam of the patient as documented above. EKG was done, interpretation as above. IV inserted. Medicine administered as documented above. Blood drawn. This was sent to the lab for further testing, results above. The patient was sent for an abdomen/pelvis CT and chest XR while in the emergency department, findings above. 1620 I rechecked the patient and discussed the results of his workup thus far. [address] Marquis of the hospitalist services. They are in agreement to accept the patient for admission. Findings and plan explained to the Patient who consents to admission. Discussed the patient with , who will admit the patient to a medical bed for further monitoring, evaluation, and treatment. Impression & Plan Medical Decision Making: Hay Gutierrez is a 60 year old male with an extensive history of alcohol pancreatitic and COPD whopresents to the ED for evaluation of abdominal pain. Patient states his pain is similar to his past episodes of pancreatitis. Last alcohol consumption was 10 days ago. Patient has had recent diarrheal illness which he developed after exposure to his kids who had similar diarrheal illness. No other upper respiratory symptoms suggestive for COVID at this time however, such as dyspnea. See HPI as above for additional details. Vitals and physical exam as above. Differential was broad and included gallbladder etiology, pancreatitis, pneumonia, hepatitis, SBO, kidney stone, pyelonephritis, diverticulitis, appendicitis, constipation, among others. The above work-up was obtained. Patient has mild elevation of his lipase at 1163. He has evidence for hypokalemia at 2.6. Mild elevation of liver enzymes as well. Patient had evidence for lactic acidosis, which I believe is secondary to hypovolemia, as patient notes feeling markedly dry. CT reveals evidence for changes suggestive for both chronic pancreatitis and acute pancreatitis. There is also evidence suggestive for pancreatic pseudocysts and a small amount of ascites. Suspect CT findings of pancreatitis are etiology of patient's abdominal pain. 2+ liters were provided to the patient with improvement of his lactic acidosis. Pain was controlled with 1 dose of Dilaudid. Potassium repletion was started as above. Discussed results of work-up with patientand need for inpatient management for pain control and ongoing management of hypokalemia. Patient was in agreement for admission. I discussed case with the hospitalist, who is in agreement for admission. All questions answered. Patient admitted in stable condition. Diagnosis: ICD-10-CM 1. Acute pancreatitis K85.90 Symptomatic COVID-19 Virus (Coronavirus) by PCR Lactic acid whole blood 2. Pancreatic pseudocyst K86.3 3. Dyspnea R06.00 4. Hypokalemia E87.6 5. Lactic acidosis E87.2 Disposition: Admitted Scribe Disclosure: I, Darryl Lambert, am serving as a scribe on 04/16/2020 at 12:39 PM to personally document services performed by Uri Golden PA-C based on my observations and the provider's statements to me. Darryl Orourkejillian 04/16/2020 [facility] EMERGENCY DEPARTMENT Uri Golden PA-C 04/16/20 [id number] Phillip Velasco MD - 04/16/2020 11:29 AM CDT Emergency Department Attending Supervision Note 04/16/2020 3:01 PM I evaluated this patient in conjunction with Uri Golden PA-C Briefly, the patient presented with Abdominal pain. Hx of ETOH and alcohol use around 10 days ago was his last per his report. Pain is mostly right sided. Had a diarrheal illness recently but no other COVID symptoms On my exam, Abd: Right side of the abdomen is tender to palpation. No bruising. Gen: cachectic appearing. Skin: No rashes. Results: Labs Ordered and Resulted from Time of ED Arrival Up to the Time of Departure from the ED CBC WITH PLATELETS DIFFERENTIAL - Abnormal; Notable for the following components: Result Value RBC Count 3.49 (*) Hematocrit 38.3 (*) MCV 110 (*) MCH 38.7 (*) RDW 17.2 (*) All other components within normal limits COMPREHENSIVE METABOLIC PANEL - Abnormal; Notable for the following components: Potassium 2.6 (*) Carbon Dioxide 34 (*) Glucose 107 (*) Creatinine 0.58 (*) Calcium 8.4 (*) Bilirubin Total 1.6 (*) Albumin 2.4 (*) ALT 192 (*) All other components within normal limits LIPASE - Abnormal; Notable for the following components: Lipase 1,163 (*) All other components within normal limits LACTIC ACID WHOLE BLOOD - Abnormal; Notable for the following components: Lactic Acid 2.3 (*) All other components within normal limits ROUTINE UA WITH MICROSCOPIC REFLEX TO CULTURE CT Abdomen Pelvis w Contrast Preliminary Result IMPRESSION: 1. Extensive pancreatic calcification and dilatation of the pancreatic duct is new since the previous exam, and likely related to chronic pancreatitis. 2. Hazy increased density about the pancreas is suspicious for some degree of superimposed acute pancreatitis. Clinical and laboratory correlation are recommended. 3. Several rim-enhancing peripancreatic fluid collections are new since the previous exam, and are suspicious for pseudocysts. 4. Small amount of ascites. 5. Emphysematous changes at both lung bases. XR Chest Port 1 View (Results Pending) ED course: My impression is acute on chronic pancreatitis. Cachexia is worrisome. Admit to medicine as continuing pain Diagnosis ICD-10-CM 1. Acute pancreatitis K85.90 2. Pancreatic pseudocyst K86.3 3. Dyspnea R06.00 4. Hypokalemia E87.6 Phillip Velasco MD Thielen, Scott Daniel, MD 04/16/20 1609 documented in this encounter Miscellaneous Notes Plan of Care - Deisy Nova, PT - 04/22/2020 2:04 PM CDT Physical Therapy Discharge Summary Reason for therapy discharge: Discharged to home with home therapy. Progress towards therapy goal(s). See goals on Care Plan in [facility] electronic [facility] record for goal details. Goals partially met. Barriers to achieving goals: discharge on same date as initial evaluation. Therapy recommendation(s): Continued therapy is recommended. Rationale/Recommendations: +1 assist for stairs, SBA for ambulation, use of FWW; HHPT. He would benefit from skilled PT intervention from PT to progress to baselinelevel of independence with mobility. Plan of Care - Cece Bruno RN - 04/22/2020 11:41 AM CDT VSS admitted with pancreatitis. No abd, no nausea, tolerating diet. Up with SBA walker. PT to see. Plan for discharge today with home care. Care transitions following. Went over discharge paperwork with patient. Questions asked and answered. Verbalized understanding. Pt discharged at 1401 per wc with all belongings. Plan of Care - Radha Everett, PT - 04/22/2020 9:28 AM CDT Robot Operator PT Patient plan for discharge: home with assist from family Current status: PT orders received and chart reviewed. Patient is 60 YO M admitted with diagnosis ofacute on chronic pancreatitis and malnutrition. PT evaluation completed and treatment initiated. Patient performed supine <>sit bed mobility with modified independence. Sit <> stand transfers completed with FWW SBA. Patient ambulated approximately 120' in hallway and 30' around room with FW W and SBA, no losses of balance but mild unsteadiness due to decreased foot clearance. Patient declined practicing stairs today but will have B rails and assist at home. Patient left in bed with alarm activated at end of session. Updated RICHY Zhao on discharge recommendations after session. Barriers to return to prior living situation: none anticipated Recommendations for discharge: home with +1 assist for stairs, SBA for ambulation, use of FWW; HHPT Rationale for recommendations: Patient has supportive and adult children to assist at home as needed. He is willing to use FWW to maximize safety with mobility until strength and endurance improves. He would benefit from skilled PT intervention from HH PT to progress to baseline level of independence with mobility. Entered by: Radha Everett 04/22/2020 9:28 AM Plan of Care - Katelin Serrano, RN - 04/22/2020 5:21 AM CDT Pt a&O x4, BPs elevated, 5/10 back pain which he says is chronic, gave Tylenol PRN and a one time order [place]. RA, LS diminished, has a new skin tear this shift on his right arm from shifting positions in bed, foam in place. Low fat diet, a1 gb and w, urinal bedside with good output. Possible discharge today. Continue to monitor. Plan of Care - Viviane Myers RN - 04/21/2020 5:41 PM CDT Patient, alert, oriented, up with stand by assist, admitted with pancreatitis. Now complains of generalized pain. (stated this is his chronic, generalized pain) receiving tylenol which he takes at homewith relief. Tolerating PO without nausea. One dose of IV lasix given this afternoon with good output. Tele SR with peaked T's. Geraldo patch on. Declined PT. Possible discharge tomorrow. Plan of Care - Rhoda Cervantes, PT - 04/21/2020 2:33 PM CDT PT: Attempted to see patient for PT this PM. Patient declining working with PT this PM, states he wishesto rest at this time as he has been up to the bathroom frequently, would be more agreeable later in the evening. Explained that this underwriter will not be able to return later this evening. Patient requesting AM time slot. Plan of Care - Aspen Goncalves, RICHY - 04/21/2020 4:49 AM CDT Code status: FULL COVID-19 result: NEGATIVE Pertinent assessment: A&Ox4. VSS. Tele: SR w/ peaked T waves. Pt c/o generalized pain. PRN dilaudid given x2. CIWA scores: 0, 0. Banana bag completed overnight. PIV saline locked. +2 edema in BUE and BLE. LS: coarse w/ productive cough.Up Ax1 with walker and GB. Low fat diet. Treatment plan: GI following. See notes. Continue with POC. Discharge dispo: possibly today. Plan of Care - Anita Castle RN - 04/20/2020 7:04 PM CDT Orientation:A/O x4 VS: B/P elevated, scheduled meds given. Afebrile. On RA Tele:SR w/ long QT LS:Wheezes in L upper lobe, crackles in the bases GI: tolerating diet. No BM this shift : Voiding into bedside urinal Skin: mike, bruises, scabs, edema BLE and BUE elbows +2. No sign of IV infiltration from previous IV sight Activity: Up w/ 1 Pain: 4/10 pain in abd. IV dilaudid available Lines: 2 PIV in R forearm, infusing mag replacement and banana bag Plan: Possible discharge tmrw. Encourage PO intake and ambulation. Other: Phos 2.1 replaced on Day shift- recheck in AM. Mag 1.4 recheck scheduled for this shift and AM. Anita Castle, RICHY on 04/20/2020 at 7:13 PM Plan of Care - Otilio Neal RN - 04/20/2020 3:43 PM CDT VSS on RA, A/OX4, assist of 1, pt ambulated twice this shift, low fat diet, 4/10 back pain, dilaudidgiven three times this shift, SR on tele, LS dim and coarse, phos-2.1 and being replaced now, recheck in AM, discharge possible tomorrow to [facility]. Plan of Care - Maribell Arrieta RN - 04/20/2020 3:29 AM CDT Pt a/o x4, up with assist of 1. Scoring 0-2 on CIWA, no prn needed. Dilaudid given x3 for pain management with some relief. Restarted on BP medications today, BP trending down. Nutrition consulted. Plan to discharge when medically stable. Will continue POC. Plan of Care - Rea Ch RN - 04/19/2020 10:53 PM CDT Assumed cares at 1900. A&Ox4. C/o mild abd pain and prn IV dilaudid effective. Voiding per urinal. Plan is to discharge when medically stable. Plan of Care - Rachel French RN - 04/19/2020 5:52 PM CDT Pt is A/O, VSS- ex hypertensive. Pain managed with IV dilaudid x1. CIWA scored 0. Up with Ax1. Phos recheck 2.7. Tele monitoring. GI following. Will continue plan of care. Plan of Care - Kirstin Rivera RN - 04/19/2020 2:22 PM CDT BP (!) 145/104 Pulse 89 Temp 98.1 ??F (36.7 ??C) (Oral) Resp 18 Ht 1.727 m (5' 8) Wt 43.9kg (96 lb 12.8 oz) SpO2 95% BMI 14.72 kg/m?? A&O. A1 GBW. Tele is SR. PRN Dilaudid given x1 for abdominal pain. Phos 1.7, replaced per protocol. Recheck ordered. Diet advanced to low fat, sill worker consult placed for malnutrition. Boost supplements ordered. GI following, see note. Plan is discharge in 2-3 once pain is under control and able to tolerate food. Pt educated on plan of care. Plan of Care - Da Lopez RN - 04/19/2020 4:25 AM CDT BP (!) 134/94 (BP Location: Right arm) Pulse 81 Temp 97.8 ??F (36.6 ??C) (Oral) Resp 16 Ht 1.727 m (5' 8) Wt 43.9 kg (96 lb 12.8 oz) SpO2 96% BMI 14.72 kg/m?? A&OX4, bed alarm is on. Up with assist of 1, GB and walker. VSS. SPO2 96% RA. Tele: SR. C/O abdominal pain, PRN IV dilaudid given X1. CIWA scored 0 and 0 per this shift. Phos: 1.8, Phosphorus replaced , recheck ordered with AM labs. IV banana bag infusing 100ml/hr. Clear liquid diet. Paln: Continue IVF. Pain management. Continue close monitoring of withdrawal symptom and use CIWA asneeded.Expected discharge once pancreatitis resolves and can resume oral intake. Plan of Care Logan Dickinson RN - 04/18/2020 10:44 PM CDT Admitting Diagnosis: Pancreatitis Pertinent History: HTN, COPD, tobacco use, alcohol dependency, stroke, & previous pancreatitis. For vital signs and assessment please see flow sheet. Living Situation: home with family Pain plan: IVF, and IV Dilaudid 0.5 mg x 3 Mobility: assistance, 1 person Baseline activity: Independent Alarms/Safety: BA on LDA's:PIV on Left arm Pertinent test results: Phosphorous 1.8, Consults: none Abnormals/Pending: None Other Cares/Comments: IV Phosphorous replacement 125 ml hr Discharge Disposition: TBD / in 3 days once pain resolved Discharge Time: not clear Plan of Care - Abner Olson RN - 04/18/2020 3:01 PM CDT Vss. A&OX4 phos 1.3 replaced. K 3.9 wnl. Ivf infusing. Pain couple hours after mid am meal. Did drink about 600 mls. Pt stated he maybe over did it. Dilauded iv x1. Ambulated x1. Refused to ambulated most of am. Needs encouragement. Up with A1 belt and walker. Sob sats stable on Ra at rest. Sats were 85% on RA after walking. Quickly recovered to 96% on RA. May need to check ambulating o2 sats. CIWA 0. Using urinal calls aprop. Alarms on. Plan of Logan Miller RN - 04/17/2020 10:41 PM CDT Admitting Diagnosis: Pancreatitis Pertinent History: HTN, COPD, tobacco use, alcohol dependency, stroke, & previous pancreatitis. For vital signs and assessment please see flow sheet. Living Situation: home with family Pain plan: IVF, and IV Dilaudid 0.5 mg Mobility: assistance, 1 person Baseline activity: Independent Alarms/Safety: BA on LDA's:PIV on Left arm Pertinent test results: Phosphorous 2.0, Consults: none Abnormals/Pending: None Other Cares/Comments: IV Phosphorous replacement 62.5 ml hr Discharge Disposition: TBD / in 3 days once pain resolved Discharge Time: not clear Plan of Care - Abner Olson RN - 04/17/2020 3:44 PM CDT 5th floor transfer; Vss. A&O x4 up a1 alarms on. Calls aprop. CIWA o. Rlq pain controlled with dilauded. Diet advanced to clears. Denies n/v Plan of Care - Lidia Wynne RN - 04/17/2020 12:46 PM CDT Report given to 3rd floor RN. End of Shift Summary For vital signs and complete assessments please see documentation flowsheets. Pertinent assessments: Tachy at times, on tele. On 1.5 LPM NC per pt request. IV Dilaudid given oncefor c/o abdominal pain. Potassium replaced orally, recheck scheduled for 0. C1WA score of 1. Major Shift Events: none Treatment Plan: IVF, pain management, telemetry. Provider Notification - Lidia Wynne RN - 04/17/2020 12:41 PM CDT paged: Phosphorous is 2.0. Can we get replacement orders? Thanks! Pharmacy-Admission Medication History - Aneesh Maynard RPH - 04/16/2020 8:16 PM CDT Admission medication history interview status for this patient is complete. See [facility] admission navigator for allergy information, prior to admission medications and immunization status. Medication history interview done via telephone during Covid-19 pandemic, indicate source(s): Patient Medication history resources (including written lists, pill bottles, clinic record):None Changes made to UNIT CONTROLLER medication list: Added: Tylenol 500mg Deleted: Vit-D 1000 IU, Folic acid 1mg, Multi-vit Changed: none Actions taken by pharmacist (provider contacted, etc):None Additional medication history information:None Medication reconciliation/reorder completed by provider prior to medication history? No For patients on insulin therapy: No Prior to Admission medications Medication Sig Last Dose Taking? Auth Provider aspirin (ASA) 325 MG EC tablet Take 325 mg by mouth daily 04/16/2020 at Unknown time Yes Unknown, Entered By History atenolol (TENORMIN) 25 MG tablet Take 25 mg by mouth daily (with dinner) 04/16/2020 at Unknown time Yes Unknown, Entered By History fluticasone - vilanterol (BREO ELLIPTA) 100-25 MCG/INH oral inhaler Inhale 1 puff into the lungs daily 04/15/2020 at Unknown time Yes Unknown, Entered By History lisinopril (ZESTRIL) 20 MG tablet Take 20 mg by mouth daily (with dinner) 04/16/2020 at Unknown time Yes Unknown, Entered By History acetaminophen (TYLENOL) 500 MG tablet Take 1,000 mg by mouth once as needed for mild pain at PRN Unknown, Entered By History umeclidinium bromide (INCRUSE ELLIPTA) 62.5 MCG/INH inhalation capsule Inhale 62.5 mcg into the lungs daily More than a month at Unknown time Unknown, Entered By History Plan of Care - Paz Avendaño RN - 04/16/2020 6:51 PM CDT End of Shift Summary For vital signs and complete assessments, please see documentation flowsheets. Pertinent assessments: LS diminished, dyspnea on exertion. C/o abdominal pain, denies nausea. Major Shift Events: Dilaudid given for abdominal pain. CIWA 1. documented in this encounter Plan of Treatment Scheduled Orders Name Type Priority Associated Diagnoses Order S chedule EKG 12 lead EKG Routine Enter condition for order release in comments for 1 Occurrences starting 04/16/2020 Scheduled Referrals Name Type Priority Associated Diagnoses Order S chedule Home care nursing Referral Routine Alcohol-induced acute O rdered: 04/22/2020 referral pancreatitis without infection or necrosis Home Care PT Referral Referral Routine Alcohol-induced acu te Ordered: 04/22/2020 for Hospital Discharge pancreatitis witho ut infection or necrosis documented as of this encounter Procedures Procedure Name Priority Date/Time Associated Diagnosis Comme nts HEMOGLOBIN Routine 04/22/2020 6:29 Acute pancreatitis Result s for this AM CDT procedure are i n the results section. BASIC METABOLIC PANEL Routine 04/22/2020 6:29 Acute pancreatit is Results for this AM CDT procedure are i n the results section. PHOSPHORUS Routine 04/21/2020 6:26 Acute pancreatitis Result s for this AM CDT procedure are i n the results section. MAGNESIUM Routine 04/21/2020 6:26 Acute pancreatitis Result s for this AM CDT procedure are i n the results section. LIPASE Routine 04/21/2020 6:26 Acute pancreatitis Result s for this AM CDT procedure are i n the results section. COMPREHENSIVE Routine 04/21/2020 6:26 Acute pancreatitis Resul ts for this METABOLIC PANEL AM CDT procedure ar e in the results section. CBC WITH PLATELETS Routine 04/21/2020 6:26 Acute pancreatitis Results for this AM CDT procedure are i n the results section. MAGNESIUM Timed 04/20/2020 10:08 Acute pancreatitis Resul ts for this PM CDT procedure are i n the results section. PHOSPHORUS Routine 04/20/2020 7:12 Acute pancreatitis Result s for this AM CDT procedure are i n the results section. MAGNESIUM Routine 04/20/2020 7:12 Acute pancreatitis Result s for this AM CDT procedure are i n the results section. HEPATIC FUNCTION PANEL Routine 04/20/2020 7:12 Acute pancreati tis Results for this AM CDT procedure are i n the results section. BASIC METABOLIC PANEL Routine 04/20/2020 7:12 Acute pancreatit is Results for this AM CDT procedure are i n the results section. PHOSPHORUS Timed 04/19/2020 5:00 Acute pancreatitis Result s for this PM CDT procedure are i n the results section. PHOSPHORUS Routine 04/19/2020 7:10 Acute pancreatitis Result s for this AM CDT procedure are i n the results section. COMPREHENSIVE Routine 04/19/2020 7:10 Acute pancreatitis Resul ts for this METABOLIC PANEL AM CDT procedure ar e in the results section. CBC WITH PLATELETS Routine 04/19/2020 7:10 Acute pancreatitis Results for this AM CDT procedure are i n the results section. PHOSPHORUS Timed 04/18/2020 4:35 Acute pancreatitis Result s for this PM CDT procedure are i n the results section. PHOSPHORUS Routine 04/18/2020 6:17 Acute pancreatitis Result s for this AM CDT procedure are i n the results section. LIPASE Routine 04/18/2020 6:17 Acute pancreatitis Result s for this AM CDT procedure are i n the results section. BASIC METABOLIC PANEL Routine 04/18/2020 6:17 Acute pancreatit is Results for this AM CDT procedure are i n the results section. POTASSIUM Timed 04/17/2020 4:56 Acute pancreatitis Result s for this PM CDT procedure are i n the results section. PHOSPHORUS Routine 04/17/2020 7:58 Acute pancreatitis Result s for this AM CDT procedure are i n the results section. MAGNESIUM Routine 04/17/2020 7:58 Acute pancreatitis Result s for this AM CDT procedure are i n the results section. LIPASE Routine 04/17/2020 7:58 Acute pancreatitis Result s for this AM CDT procedure are i n the results section. COMPREHENSIVE Routine 04/17/2020 7:58 Acute pancreatitis Resul ts for this METABOLIC PANEL AM CDT procedure ar e in the results section. CBC WITH PLATELETS Routine 04/17/2020 7:58 Acute pancreatitis Results for this AM CDT procedure are i n the results section. ROUTINE UA WITH STAT 04/16/2020 5:42 Acute pancreatitis Res ults for this MICROSCOPIC REFLEX TO PM CDT proced ure are in CULTURE the results section. LACTIC ACID WHOLE STAT 04/16/2020 4:21 Acute pancreatitis R esults for this BLOOD PM CDT procedure are i n the results section. XR CHEST PORT 1 VIEW STAT 04/16/2020 3:54 Resu lts for this PM CDT procedure are i n the results section. SARS-COV-2 (COVID-19) Routine 04/16/2020 3:51 Acute pancreatit is Results for this VIRUS RT-PCR PM CDT procedure are i n the results section. COVID-19 VIRUS STAT 04/16/2020 3:51 Acute pancreatitis Resu lts for this (CORONAVIRUS) BY PCR PM CDT procedu re are in the results section. CT ABDOMEN PELVIS W STAT 04/16/2020 3:09 Resul ts for this CONTRAST PM CDT procedure are i n the results section. EKG 12-LEAD, TRACING STAT 04/16/2020 2:07 Resu lts for this ONLY PM CDT procedure are i n the results section. CBC WITH PLATELETS & STAT 04/16/2020 1:10 Resu lts for this DIFFERENTIAL PM CDT procedure are i n the results section. LIPASE STAT 04/16/2020 1:10 Results for this PM CDT procedure are i n the results section. LACTIC ACID WHOLE STAT 04/16/2020 1:10 Results for this BLOOD PM CDT procedure are i n the results section. COMPREHENSIVE STAT 04/16/2020 1:10 Results for this METABOLIC PANEL PM CDT procedure ar e in the results section. ETHYL ALCOHOL LEVEL Routine 04/16/2020 1:10 Acute pancreatitis Results for this PM CDT procedure are i n the results section. documented in this encounter Results (ABNORMAL) Hemoglobin (04/22/2020 6:29 AM CDT) P athologist Signature Hemoglobin 10.3 (L) 13.3 - 17.7 04/22/2020 EXETER g/dL 6:49 AM CDT [facility] Specimen Anatomical Collection Method Collection Time Receive d Time (Source) Location / / Volume Laterality Blood specimen 04/22/2020 6:29 AM 020 6:30 (specimen) CDT AM CDT Iesha Davila MD LAB - BLOOD ORDERABLES Performing Organization Address City/State/ZIP Code Phon e Number [facility] [address] [address] [facility] [address] [address], [facility] [phone] (ABNORMAL) Basic metabolic panel (04/22/2020 6:29 AM CDT) Analysis Performed At Patho logist Time Signature Sodium 135 133 - 144 04/22/2020 EXETER mmol/L 7:00 AM [facility] Potassium 4.2 3.4 - 5.3 04/22/2020 EXETER mmol/L 7:00 AM [facility] Chloride 104 94 - 109 04/22/2020 EXETER mmol/L 7:00 AM [facility] Carbon Dioxide 27 20 - 32 04/22/2020 EXETER mmol/L 7:08 AM [facility] Anion Gap 4 3 - 14 04/22/2020 EXETER mmol/L 7:08 AM [facility] Glucose 75 70 - 99 04/22/2020 EXETER mg/dL 7:08 AM [facility] Urea Nitrogen 5 (L) 7 - 30 04/22/2020 EXETER mg/dL 7:08 AM [facility] Creatinine 0.54 (L) 0.66 - 04/22/2020 EXETER 1.25 mg/dL 7:08 AM [facility] GFR Estimate >90 >60 04/22/2020 EXETER mL/min/{1. 7:08 AM [facility] 73_m2} HOSPITAL Comment: Non GFR Calc Starting 11/05/2018, serum creatinine ba sed estimated GFR (eGFR) will be calculated using the Chronic Kidney Dise [facility] Epidemiology Collaboration (CKD-EPI) equation. GFR Estimate If >90 >60 mL/min/{1.73_m2} 04/22/2020 7: [address] [facility] Comment: GFR Calc Starting 11/05/2018, serum creatinine ba sed estimated GFR (eGFR) will be calculated using the Chronic Kidney Dise [facility] Epidemiology Collaboration (CKD-EPI) equation. Calcium 8.0 (L) 8.5 - 10.1 mg/dL 04/22/2020 7:08 AM [facility] Specimen Anatomical Collection Method Collection Time Receive d Time (Source) Location / / Volume Laterality Blood specimen 04/22/2020 6:29 AM 020 6:30 (specimen) CDT AM CDT Iesha Davila MD LAB - BLOOD ORDERABLES Performing Organization Address City/State/ZIP Code Phon e Number [address] [address] [address] [place], [place] [address] [facility] [address], [place] [address], [facility] [phone] Magnesium (04/21/2020 6:26 AM CDT) athologist Signature Magnesium 2.0 1.6 - 2.3 04/21/[address] [facility] mg/dL 7:31 AM CDT HOSPITAL Specimen Anatomical Collection Method Collection Time Receive d Time (Source) Location / / Volume Laterality Blood specimen 04/21/2020 6:26 AM 020 6:27 (specimen) CDT AM CDT Iesha Davila MD LAB - BLOOD ORDERABLES Performing Organization Address City/[facility]/ZIP [facility] Phon e Number [facility] [address], [place] [address] [address] [address] [id number], [facility] [phone] Phosphorus (04/21/2020 6:26 AM CDT) athologist Signature Phosphorus 3.0 2.5 - 4.5 04/21/[address] [facility] mg/dL 7:31 AM CDT HOSPITAL Specimen Anatomical Collection Method Collection Time Receive d Time (Source) Location / / Volume Laterality Blood specimen 04/21/2020 6:26 AM 020 6:27 (specimen) CDT AM CDT Iesha Davila MD LAB - BLOOD ORDERABLES Performing Organization Address City/[facility]/ZIP [facility] Phon e Number [facility] [address], [place] [address] [facility] [address] [address], [facility] [phone] (ABNORMAL) Lipase (04/21/2020 6:26 AM CDT) athologist Signature Lipase 841 (H) 73 - 393 04/21/2020 EXETER U/L 7:31 AM CDT [facility] Specimen Anatomical Collection Method Collection Time Receive d Time (Source) Location / / Volume Laterality Blood specimen 04/21/2020 6:26 AM 020 6:27 (specimen) CDT AM CDT Franco Julio MD LAB - BLOOD ORDERABLES Performing Organization Address City/State/ZIP Code Phon e Abhilash M [facility] [address], [place] [address] [facility] [address], [place] [address] [phone] (ABNORMAL) Comprehensive metabolic panel (04/21/2020 6:26 AM CDT) Analysis Performed At [facility] Time Signature Sodium 135 133 - 144 04/21/2020 EXETER mmol/L 7:22 AM [facility] Potassium 4.7 3.4 - 5.3 04/21/2020 EXETER mmol/L 7:22 AM [facility] Chloride 106 94 - 109 04/21/2020 EXETER mmol/L 7:22 AM [facility] Carbon Dioxide 23 20 - 32 04/21/2020 EXETER mmol/L 7:30 AM [facility] Anion Gap 6 3 - 14 04/21/2020 EXETER mmol/L 7:30 AM [facility] Glucose 73 70 - 99 04/21/2020 EXETER mg/dL 7:30 AM [facility] Urea Nitrogen 3 (L) 7 - 30 04/21/2020 EXETER mg/dL 7:30 AM [facility] Creatinine 0.46 (L) 0.66 - 04/21/2020 EXETER 1.25 mg/dL 7:30 AM [facility] GFR Estimate >90 >60 04/21/2020 EXETER mL/min/{1. 7:30 AM [facility] 73_m2} HOSPITAL Comment: Non GFR Calc Starting 11/05/2018, serum creatinine ba sed estimated GFR (eGFR) will be calculated using the Chronic Kidney Dise [facility] Epidemiology Collaboration (CKD-EPI) equation. GFR Estimate If >90 >60 mL/min/{1.73_m2} 04/21/2020 7: [address] [facility] Comment: GFR Calc Starting 11/05/2018, serum creatinine ba sed estimated GFR (eGFR) will be calculated using the Chronic Kidney Dise [facility] Epidemiology Collaboration (CKD-EPI) equation. Calcium 7.7 (L) 8.5 - 10.1 04/21/2020 7:30 AM [facility] mg/dL [facility] Bilirubin Total 0.7 0.2 - 1.3 mg/dL 04/21/2020 7:31 AM [facility] Albumin 1.6 (L) 3.4 - 5.0 g/dL 04/21/2020 7:[address] [facility] Protein Total 5.4 (L) 6.8 - 8.8 g/dL 04/21/2020 7:31 AM [facility] Alkaline Phosphatase 104 40 - 150 U/L 04/21/2020 7:31 AM [facility] ALT 74 (H) 0 - 70 U/L 04/21/2020 7:31 AM [facility] AST 40 0 - 45 U/L 04/21/2020 7:31 AM [facility] Specimen Anatomical Collection Method Collection Time Receive d Time (Source) Location / / Volume Laterality Blood specimen 04/21/2020 6:26 AM 020 6:27 (specimen) CDT [facility] Franco Julio MD LAB - BLOOD ORDERABLES Performing Organization Address City/State/ZIP Code Phon e Number [address] [place] [address] [facility] [address] [phone] (ABNORMAL) CBC with platelets (04/21/2020 6:26 AM CDT) Analysis Performed At Patho logist Time Signature WBC 7.4 4.0 - 11.0 04/21/2020 EXETER 10e9/L 7:12 AM [facility] RBC Count 2.93 (L) 4.4 - 5.9 04/21/2020 EXETER 10e12/L 7:12 AM [facility] Hemoglobin 10.4 (L) 13.3 - 04/21/2020 EXETER 17.7 g/dL 7:12 AM [facility] Hematocrit 32.1 (L) 40.0 - 04/21/2020 [facility] 53.0 % 7:12 AM [facility] MCV 110 (H) 78 - 100 04/21/2020 [facility] fl 7:12 AM [facility] MCH 35.5 (H) 26.5 - 04/21/2020 [facility] 33.0 pg 7:12 AM [facility] MCHC 32.4 31.5 - 04/21/2020 [facility] 36.5 g/dL 7:12 AM [facility] RDW 15.4 (H) 10.0 - 04/21/2020 [facility] 15.0 % 7:12 AM [facility] Platelet Count 318 150 - 450 04/21/2020 [facility] 10e9/L 7:12 AM [facility] Specimen Anatomical Collection Method Collection Time Receive d Time (Source) Location / / Volume Laterality Blood specimen 04/21/2020 6:26 AM 020 6:27 (specimen) CDT AM CDT Franco Julio MD LAB - BLOOD ORDERABLES Performing Organization Address City/[facility] Phon e [facility] [address], [place] [address] [facility] [address] [place], [place] [address], [facility] [phone] (ABNORMAL) Magnesium (04/20/2020 10:08 PM CDT) P athologist Signature Magnesium 2.4 (H) 1.6 - 2.3 04/20/2020 [facility] mg/dL 10:25 PM [facility] Specimen Anatomical Collection Method Collection Time Receive d Time (Source) Location / / Volume Laterality Blood specimen 04/20/2020 10:08 0 (specimen) PM CDT 10:09 PM CDT Iesha Davila MD LAB - BLOOD ORDERABLES Performing Organization Address City/[facility] Phon e [facility] [address], [place] [address] [facility] [address] [place], [place] [address], [facility] [phone] (ABNORMAL) Magnesium (04/20/2020 7:12 AM CDT) P athologist Signature Magnesium 1.4 (L) 1.6 - 2.3 04/20/2020 [facility] mg/dL 4:40 PM [facility] Specimen Anatomical Collection Method Collection Time Receive d Time (Source) Location / / Volume Laterality 04/20/2020 7:12 AM 0 7:13 CDT AM CDT Iesha Davila MD LAB - BLOOD ORDERABLES Performing Organization Address City/[facility] Phon e Number M [facility] [address], [place] [address] [facility] [address] [place] [address] [phone] (ABNORMAL) Phosphorus (04/20/2020 7:12 AM CDT) athologist Signature Phosphorus 2.1 (L) 2.5 - 4.5 04/20/2020 [facility] mg/dL 8:14 AM [facility] Specimen Anatomical Collection Method Collection Time Receive d Time (Source) Location / / Volume Laterality 04/20/2020 7:12 AM 0 7:13 CDT AM CDT Iesha Davila MD LAB - BLOOD ORDERABLES Performing Organization Address City/[facility] Phon e Number [facility] [address], [place] [address] [facility] [address] [place] [address] [phone] (ABNORMAL) Hepatic panel (04/20/2020 7:12 AM CDT) Analysis Performed At Patho logist Time Signature Bilirubin Direct 0.3 (H) 0.0 - 0.2 04/20/2020 [facility] mg/dL 7:47 AM [facility] Bilirubin Total 0.8 0.2 - 1.3 04/20/2020 [facility] mg/dL 7:47 AM [facility] Albumin 1.7 (L) 3.4 - 5.0 04/20/2020 [facility] g/dL 7:47 AM [facility] Protein Total 5.4 (L) 6.8 - 8.8 04/20/2020 [facility] g/dL 7:47 AM [facility] Alkaline 105 40 - 150 04/20/2020 [facility] Phosphatase U/L 7:47 AM [facility] ALT 83 (H) 0 - 70 U/L 04/20/2020 [facility] 7:47 AM [facility] AST 37 0 - 45 U/L 04/20/2020 [facility] 7:47 AM [facility] Specimen Anatomical Collection Method Collection Time Receive d Time (Source) Location / / Volume Laterality Blood specimen 04/20/2020 7:12 AM 020 7:13 (specimen) CDT AM CDT Iesha Davila MD LAB - BLOOD ORDERABLES Performing Organization Address City/State/ZIP Code Phon e Number M [facility] [address] [place] [address] [facility] [address] [phone] (ABNORMAL) Basic metabolic panel (04/20/2020 7:12 AM CDT) Analysis Performed At Patho logist Time Signature Sodium 137 133 - 144 04/20/2020 [facility] mmol/L 7:39 AM [facility] Potassium 4.7 3.4 - 5.3 04/20/2020 [facility] mmol/L 7:39 AM [facility] Chloride 108 94 - 109 04/20/2020 [facility] mmol/L 7:39 AM [facility] Carbon Dioxide 23 20 - 32 04/20/2020 [facility] mmol/L 7:45 AM [facility] Anion Gap 6 3 - 14 04/20/2020 [facility] mmol/L 7:45 AM [facility] Glucose 77 70 - 99 04/20/2020 [facility] mg/dL 7:45 AM [facility] Urea Nitrogen 4 (L) 7 - 30 04/20/2020 [facility] mg/dL 7:45 AM [facility] Creatinine 0.46 (L) 0.66 - 04/20/2020 [facility] 1.25 mg/dL 7:45 AM [facility] GFR Estimate >90 >60 04/20/2020 [facility] mL/min/{1. 7:45 AM T [facility] 73_m2} HOSPITAL Comment: Non GFR Calc Starting 11/05/2018, serum creatinine ba sed estimated GFR (eGFR) will be calculated using the Chronic Kidney Dise [facility] Epidemiology Collaboration (CKD-EPI) equation. GFR Estimate If >90 >60 mL/min/{1.73_m2} 04/20/2020 7: [address] [facility] Comment: GFR Calc Starting 11/05/2018, serum creatinine ba sed estimated GFR (eGFR) will be calculated using the Chronic Kidney Dise [facility] Epidemiology Collaboration (CKD-EPI) equation. Calcium 7.3 (L) 8.5 - 10.1 mg/dL 04/20/2020 7:45 AM T [facility] Specimen Anatomical Collection Method Collection Time Receive d Time (Source) Location / / Volume Laterality Blood specimen 04/20/2020 7:12 AM 020 7:13 (specimen) CDT AM CDT Iesha Davila MD LAB - BLOOD ORDERABLES Performing Organization Address City/State/ZIP Code Phon e Number M [facility] [address], [place] [address] [facility] [address] [phone] Phosphorus (04/19/2020 5:00 PM CDT) P athologist Signature Phosphorus 2.7 2.5 - 4.5 04/19/2020 [facility] mg/dL 5:45 PM [facility] Specimen Anatomical Collection Method Collection Time Receive d Time (Source) Location / / Volume Laterality Blood specimen 04/19/2020 5:00 PM 020 5:01 (specimen) CDT PM CDT Iesha Davila MD LAB - BLOOD ORDERABLES Performing Organization Address City/State/ZIP Code Phon e Number M [facility] [address] [place] [address] [phone] [facility] [address] [place] [address], [place] [phone] (ABNORMAL) CBC with platelets (04/19/2020 7:10 AM CDT) Analysis Performed At Patho logist Time Signature WBC 8.4 4.0 - 11.0 04/19/2020 [facility] 10e9/L 7:32 AM [facility] RBC Count 2.93 (L) 4.4 - 5.9 04/19/2020 [facility] 10e12/L 7:32 AM [facility] Hemoglobin 10.7 (L) 13.3 - 04/19/2020 [facility] 17.7 g/dL 7:32 AM [facility] Hematocrit 33.5 (L) 40.0 - 04/19/2020 [facility] 53.0 % 7:32 AM [facility] MCV 114 (H) 78 - 100 04/19/2020 [facility] fl 7:32 AM [facility] MCH 36.5 (H) 26.5 - 04/19/2020 [facility] 33.0 pg 7:32 AM [facility] MCHC 31.9 31.5 - 04/19/2020 [facility] 36.5 g/dL 7:32 AM [facility] RDW 16.0 (H) 10.0 - 04/19/2020 [facility] 15.0 % 7:32 AM [facility] Platelet Count 261 150 - 450 04/19/2020 [facility] 10e9/L 7:32 AM [facility] Specimen Anatomical Collection Method Collection Time Receive d Time (Source) Location / / Volume Laterality Blood specimen 04/19/2020 7:10 AM 020 7:11 (specimen) CDT AM CDT Carrie Gee MD LAB - BLOOD ORDERABLES Performing Organization Address City/State/ZIP Code Phon e Number M [facility] [address] [place] [address] [facility] [address] [place] [address], [facility] [phone] (ABNORMAL) Comprehensive metabolic panel (04/19/2020 7:10 AM CDT) Analysis Performed At [facility] Time Signature Sodium 135 133 - 144 04/19/2020 [facility] mmol/L 7:43 AM [facility] Potassium 4.2 3.4 - 5.3 04/19/2020 [facility] mmol/L 7:43 AM [facility] Chloride 107 94 - 109 04/19/2020 [facility] mmol/L 7:43 AM [facility] Carbon Dioxide 25 20 - 32 04/19/2020 [facility] mmol/L 7:53 AM [facility] Anion Gap 3 3 - 14 04/19/2020 [facility] mmol/L 7:53 AM [facility] Glucose 82 70 - 99 04/19/2020 [facility] mg/dL 7:53 AM [facility] Urea Nitrogen 5 (L) 7 - 30 04/19/2020 [facility] mg/dL 7:53 AM [facility] Creatinine 0.40 (L) 0.66 - 04/19/2020 [facility] 1.25 mg/dL 7:53 AM [facility] GFR Estimate >90 >60 04/19/2020 [facility] mL/min/{1. 7:53 AM [facility] 73_m2} HOSPITAL Comment: Non GFR Calc Starting 11/05/2018, serum creatinine ba sed estimated GFR (eGFR) will be calculated using the Chronic Kidney Dise [facility] Epidemiology Collaboration (CKD-EPI) equation. GFR Estimate If >90 >60 mL/min/{1.73_m2} 04/19/2020 7: [address] [facility] Comment: GFR Calc Starting 11/05/2018, serum creatinine ba sed estimated GFR (eGFR) will be calculated using the Chronic Kidney Dise [facility] Epidemiology Collaboration (CKD-EPI) equation. Calcium 6.9 (L) 8.5 - 10.1 04/19/2020 7:53 AM [facility] mg/dL [facility] Bilirubin Total 0.9 0.2 - 1.3 mg/dL 04/19/2020 7:55 AM [facility] Albumin 1.7 (L) 3.4 - 5.0 g/dL 04/19/2020 7:[address] [facility] Protein Total 5.5 (L) 6.8 - 8.8 g/dL 04/19/2020 7:55 AM [facility] Alkaline Phosphatase 103 40 - 150 U/L 04/19/2020 7:55 AM [facility] ALT 92 (H) 0 - 70 U/L 04/19/2020 7:55 AM [facility] AST 35 0 - 45 U/L 04/19/2020 7:55 AM [facility] Specimen Anatomical Collection Method Collection Time Receive d Time (Source) Location / / Volume Laterality Blood specimen 04/19/2020 7:10 AM 020 7:11 (specimen) CDT AM CDT Carrie Gee MD LAB - BLOOD ORDERABLES Performing Organization Address City/[facility]/ZIP [facility] e Number [facility] [address] [place], [place] [address] [place] [address] [address] [place], [place] [address], [facility] [phone] (ABNORMAL) Phosphorus (04/19/2020 7:10 AM CDT) P athologist Signature Phosphorus 1.7 (L) 2.5 - 4.5 04/19/2020 [facility] mg/dL 7:55 AM CDT [facility] Specimen Anatomical Collection Method Collection Time Receive d Time (Source) Location / / Volume Laterality Blood specimen 04/19/2020 7:10 AM 020 7:11 (specimen) CDT AM CDT Eliezer Marquis DO LAB - BLOOD ORDERABLES Performing Organization Address City/[facility]/ZIP [facility] Phon e Number M [facility] [address], [place] [address] [facility] [address] [place], [place] [address], [facility] [phone] (ABNORMAL) Phosphorus (04/18/2020 4:35 PM CDT) P athologist Signature Phosphorus 1.8 (L) 2.5 - 4.5 04/18/2020 [facility] mg/dL 5:[address] [facility] Specimen Anatomical Collection Method Collection Time Receive d Time (Source) Location / / Volume Laterality Blood specimen 04/18/2020 4:35 PM 020 4:36 (specimen) CDT PM CDT Carrie Gee MD LAB - BLOOD ORDERABLES Performing Organization Address City/State/ZIP Code Phon e Number M [facility] [address] [place] [address] [phone] [facility] [address] [address], [place] [phone] (ABNORMAL) Phosphorus (04/18/2020 6:17 AM CDT) athologist Signature Phosphorus 1.3 (L) 2.5 - 4.5 04/18/2020 [facility] mg/dL 8:34 AM [facility] Specimen Anatomical Collection Method Collection Time Receive d Time (Source) Location / / Volume Laterality 04/18/2020 6:17 AM 0 6:18 CDT AM CDT Scott Liriano MD LAB - BLOOD ORDERABLES Performing Organization Address City/[facility]/ZIP Code Phon e Number M [facility] [address], [place] [address] [facility] [address] [place], [place] [address], [facility] [phone] (ABNORMAL) Lipase (04/18/2020 6:17 AM CDT) athologist Signature Lipase 626 (H) 73 - 393 04/18/2020 [facility] U/L 7:06 AM [facility] Specimen Anatomical Collection Method Collection Time Receive d Time (Source) Location / / Volume Laterality Blood specimen 04/18/2020 6:17 AM 020 6:18 (specimen) CDT AM CDT Scott Liriano MD LAB - BLOOD ORDERABLES Performing Organization Address City/State/ZIP Code Phon e Number M [facility] [address], [place] [address] [facility] [address] [place] [id number], [facility] [phone] (ABNORMAL) Basic metabolic panel (04/18/2020 6:17 AM CDT) Analysis Performed At Patho logist Time Signature Sodium 140 133 - 144 04/18/2020 [facility] mmol/L 7:01 AM [facility] Potassium 3.9 3.4 - 5.3 04/18/2020 [facility] mmol/L 7:01 AM [facility] Chloride 110 (H) 94 - 109 04/18/2020 [facility] mmol/L 7:01 AM [facility] Carbon Dioxide 25 20 - 32 04/18/2020 [facility] mmol/L 7:06 AM [facility] Anion Gap 5 3 - 14 04/18/2020 [facility] mmol/L 7:06 AM [facility] Glucose 74 70 - 99 04/18/2020 [facility] mg/dL 7:06 AM [facility] Urea Nitrogen 10 7 - 30 04/18/2020 [facility] mg/dL 7:06 AM [facility] Creatinine 0.44 (L) 0.66 - 04/18/2020 [facility] 1.25 mg/dL 7:06 AM [facility] GFR Estimate >90 >60 04/18/2020 [facility] mL/min/{1. 7:06 AM [facility] 73_m2} HOSPITAL Comment: Non GFR Calc Starting 11/05/2018, serum creatinine ba sed estimated GFR (eGFR) will be calculated using the Chronic Kidney Dise [facility] Epidemiology Collaboration (CKD-EPI) equation. GFR Estimate If >90 >60 mL/min/{1.73_m2} 04/18/2020 7: [address] [facility] Comment: GFR Calc Starting 11/05/2018, serum creatinine ba sed estimated GFR (eGFR) will be calculated using the Chronic Kidney Dise [facility] Epidemiology Collaboration (CKD-EPI) equation. Calcium 7.2 (L) 8.5 - 10.1 mg/dL 04/18/2020 7:06 AM [facility] Specimen Anatomical Collection Method Collection Time Receive d Time (Source) Location / / Volume Laterality Blood specimen 04/18/2020 6:17 AM 020 6:18 (specimen) CDT AM T Scott Liriano MD LAB - BLOOD ORDERABLES Performing Organization Address City/State/ZIP Code Phon e Number [place] [address] [address], [place] [address] [facility] [address], [place] [address], [facility] [phone] Potassium (04/17/2020 4:56 PM CDT) athologist Signature Potassium 4.1 3.4 - 5.3 04/17/[address] [facility] mmol/L 5:12 PM CDT HOSPITAL Specimen Anatomical Collection Method Collection Time Receive d Time (Source) Location / / Volume Laterality Blood specimen 04/17/2020 4:56 PM 020 4:57 (specimen) CDT PM CDT Scott Liriano MD LAB - BLOOD ORDERABLES Performing Organization Address [facility] Phon e Number [facility] [address], [place] [address] [facility] [address] [place], [place] [address], [facility] [phone] (ABNORMAL) Phosphorus (04/17/2020 7:58 AM CDT) athologist Signature Phosphorus 2.0 (L) 2.5 - 4.5 04/17/2020 [facility] mg/dL 12:23 PM CDT [facility] Specimen Anatomical Collection Method Collection Time Receive d Time (Source) Location / / Volume Laterality 04/17/2020 7:58 AM 0 7:59 CDT AM CDT Eliezer Marquis DO LAB - BLOOD ORDERABLES Performing Organization Address City/[facility] Phon e Number [facility] [address], [place] [address] [facility] [address] [place], [place] [address], [facility] [phone] Magnesium (04/17/2020 7:58 AM CDT) athologist Signature Magnesium 1.8 1.6 - 2.3 04/17/[address] [facility] mg/dL 8:48 AM CDT [facility] Specimen Anatomical Collection Method Collection Time Receive d Time (Source) Location / / Volume Laterality Blood specimen 04/17/2020 7:58 AM 020 7:59 (specimen) CDT AM CDT Scott Liriano MD LAB - BLOOD ORDERABLES Performing Organization Address City/[facility]/ZIP Code Phon e Number M [facility] [address], [place] [address] [facility] [address] [place], [place] [address], [facility] [phone] (ABNORMAL) Lipase (04/17/2020 7:58 AM CDT) P athologist Signature Lipase 617 (H) 73 - 393 04/17/2020 [facility] U/L 8:56 AM [facility] Specimen Anatomical Collection Method Collection Time Receive d Time (Source) Location / / Volume Laterality Blood specimen 04/17/2020 7:58 AM 020 7:59 (specimen) CDT AM CDT Eliezer Marquis DO LAB - BLOOD ORDERABLES Performing Organization Address City/[facility]/ZIP Code Phon e Number M [facility] [address], [place] [address] [facility] [address] [place], [place] [address], [facility] [phone] (ABNORMAL) Comprehensive metabolic panel (04/17/2020 7:58 AM CDT) Analysis Performed At Patho logist Time Signature Sodium 141 133 - 144 04/17/2020 [facility] mmol/L 8:56 AM [facility] Potassium 3.1 (L) 3.4 - 5.3 04/17/2020 [facility] mmol/L 8:56 AM [facility] Chloride 109 94 - 109 04/17/2020 [facility] mmol/L 8:56 AM [facility] Carbon Dioxide 25 20 - 32 04/17/2020 [facility] mmol/L 8:56 AM [facility] Anion Gap 7 3 - 14 04/17/2020 [facility] mmol/L 8:56 AM [facility] Glucose 71 70 - 99 04/17/2020 [facility] mg/dL 8:56 AM [facility] Urea Nitrogen 14 7 - 30 04/17/2020 [facility] mg/dL 8:56 AM [facility] Creatinine 0.47 (L) 0.66 - 04/17/2020 [facility] 1.25 mg/dL 8:56 AM [facility] GFR Estimate >90 >60 04/17/2020 [facility] mL/min/{1. 8:56 AM [facility] 73_m2} HOSPITAL Comment: Non GFR Calc Starting 11/05/2018, serum creatinine ba sed estimated GFR (eGFR) will be calculated using the Chronic Kidney Dise [facility] Epidemiology Collaboration (CKD-EPI) equation. GFR Estimate If >90 >60 mL/min/{1.73_m2} 04/17/2020 8: [address] [facility] Comment: GFR Calc Starting 11/05/2018, serum creatinine ba sed estimated GFR (eGFR) will be calculated using the Chronic Kidney Dise [facility] Epidemiology Collaboration (CKD-EPI) equation. Calcium 7.4 (L) 8.5 - 10.1 04/17/2020 8:56 AM [facility] mg/dL [facility] Bilirubin Total 1.3 0.2 - 1.3 mg/dL 04/17/2020 8:56 AM [facility] Albumin 1.7 (L) 3.4 - 5.0 g/dL 04/17/2020 8:[address] [facility] Protein Total 5.4 (L) 6.8 - 8.8 g/dL 04/17/2020 8:56 AM [facility] Alkaline Phosphatase 92 40 - 150 U/L 04/17/2020 8:56 AM [facility] ALT 117 (H) 0 - 70 U/L 04/17/2020 8:56 AM [facility] AST 28 0 - 45 U/L 04/17/2020 8:56 AM [facility] Specimen Anatomical Collection Method Collection Time Receive d Time (Source) Location / / Volume Laterality Blood specimen 04/17/2020 7:58 AM 020 7:59 (specimen) CDT [facility] Eliezer Marquis DO LAB - BLOOD ORDERABLES Performing Organization Address City/State/ZIP Code Phon e Number [place] [address] [address] [place], [place] [address] [facility] [address] [place], [place] [address], [facility] [phone] (ABNORMAL) CBC with platelets (04/17/2020 7:58 AM CDT) Analysis Performed At Patho logist Time Signature WBC 8.8 4.0 - 11.0 04/17/2020 [facility] 10e9/L 8:36 AM [facility] RBC Count 3.05 (L) 4.4 - 5.9 04/17/2020 [facility] 10e12/L 8:36 AM [facility] Hemoglobin 11.2 (L) 13.3 - 04/17/2020 [facility] 17.7 g/dL 8:36 AM [facility] Hematocrit 34.1 (L) 40.0 - 04/17/2020 [facility] 53.0 % 8:36 AM [facility] MCV 112 (H) 78 - 100 04/17/2020 [facility] fl 8:36 AM [facility] MCH 36.7 (H) 26.5 - 04/17/2020 [facility] 33.0 pg 8:36 AM [facility] MCHC 32.8 31.5 - 04/17/2020 [facility] 36.5 g/dL 8:36 AM [facility] RDW 16.5 (H) 10.0 - 04/17/2020 [facility] 15.0 % 8:36 AM [facility] Platelet Count 239 150 - 450 04/17/2020 [facility] 10e9/L 8:36 AM [facility] Specimen Anatomical Collection Method Collection Time Receive d Time (Source) Location / / Volume Laterality Blood specimen 04/17/2020 7:58 AM 020 7:59 (specimen) CDT AM CDT Eliezer Marquis DO LAB - BLOOD ORDERABLES Performing Organization Address City/State/ZIP Code Phon e Number M [facility] [address], [place] [address] [facility] [address] [place], [place] [address], [facility] [phone] (ABNORMAL) UA with Microscopic reflex to Culture (04/16/2020 5:42 PM CDT) Patholo gist Method Time Signature Color Urine Yellow 04/16/2020 [facility] 6:38 PM [facility] Appearance Urine Clear 04/16/2020 [facility] 6:38 PM [facility] Glucose Urine Negative NEG^Negat 04/16/2020 [facility] flower mg/dL 6:38 PM [facility] Bilirubin Urine Negative NEG^Negat 04/16/2020 [facility] flower 6:38 PM [facility] Ketones Urine Negative NEG^Negat 04/16/2020 [facility] flower mg/dL 6:38 PM [facility] Specific [place] 1.010 1.003 - 04/16/2020 [facility] Urine 1.035 6:38 PM [facility] Blood Urine Negative NEG^Negat 04/16/2020 [facility] 6:38 PM [facility] pH Urine 6.5 5.0 - 7.0 04/16/2020 [facility] pH 6:38 PM [facility] Protein Albumin 30 (A) NEG^Negat 04/16/2020 [facility] Urine flower mg/dL 6:38 PM [facility] Urobilinogen 8.0 (H) 0.0 - 2.0 04/16/2020 [facility] mg/dL mg/dL 6:38 PM [facility] Nitrite Urine Negative NEG^Negat 04/16/2020 [facility] 6:38 PM [facility] Leukocyte Negative NEG^Negat 04/16/2020 [facility] Esterase Urine flower 6:38 PM [facility] Source Midstream 04/16/2020 [facility] Urine 5:55 PM [facility] WBC Urine 1 0 - 5 04/16/2020 [facility] /HPF 6:38 PM [facility] RBC Urine 1 0 - 2 04/16/2020 [facility] /HPF 6:38 PM [facility] Squamous <1 0 - 1 04/16/2020 [facility] Epithelial /HPF /HPF 6:38 PM [facility] Mucous Urine Present (A) NEG^Negat 04/16/2020 [facility] flower /LPF 6:38 PM [facility] Specimen (Source) Anatomical Collection Method Collection Time Re ceived Time Location / / Volume Laterality Examination of 04/16/2020 5:42 04/16/2020 5:55 midstream urine PM CDT PM CDT specimen (procedure) Uri [facility] LAB - URINE ORDERABLES Performing Organization Address City/State/ZIP Code Phon e Number M [facility] [address], [place] [address] [facility] [address] [place], [place] [address], [facility] [phone] Lactic acid whole blood (04/16/2020 4:21 PM CDT) athologist Signature Lactic Acid 1.3 0.7 - 2.0 04/16/2020 [facility] mmol/L 4:29 PM CDT [facility] Specimen Anatomical Collection Method Collection Time Receive d Time (Source) Location / / Volume Laterality Blood specimen 04/16/2020 4:21 PM 020 4:25 (specimen) CDT PM CDT Uri [facility] LAB - BLOOD ORDERABLES Performing Organization Address City/[facility]/ZIP Code Phon e Number M [facility] [address], [place] [address] [facility] [address], [place] [address], [facility] [phone] XR Chest Port 1 View (04/16/2020 3:54 PM CDT) Anatomical Region Laterality Modality Chest Digital Radiography Specimen (Source) Anatomical Location Collection Method / Collectio n Time Received Time / Laterality Volume Impressions 04/16/2020 4:37 PM CDT IMPRESSION: No acute disease. JEAN MARIE TOMLINSON MD Narrative 04/16/2020 4:37 PM CDT CHEST ONE VIEW ??04/16/2020 3:54 PM HISTORY: Dyspnea COMPARISON: November 18, 2018 Procedure Note Jean Marie Tomlinson MD - 04/16/2020Fo rmatting of this note might be different from the original. CHEST ONE VIEW 04/16/2020 3:54 PM HISTORY: Dyspnea COMPARISON: November 18, 2018 IMPRESSION: No acute disease. JEAN MARIE TOMLINSON MD Uri Golden PA-C IMG DIAGNOSTIC IMAGING ORDER SHA SARS-CoV-2 COVID-19 Virus (Coronavirus) RT-PCR Nasopharyngeal (04/16/2020 3:51 PM CDT) [facility] Method Time Signature SARS-CoV-2 Nasopharyngeal 04/16/2020 [facility] Virus 9:02 PM CDT [place] [facility] SARS-CoV-2 NEGATIVE 04/16/2020 INFECTIOUS PCR Result 9:02 PM CDT DISEASES DIAGNOSTIC LABORATORY Comment: SARS-CoV2 (COVID-19) RNA not detected, p resumed negative. Critical Value/Significant Value called to and read back by Nelly Haywood RN. @2119. [id number]. BS. SARS-CoV-2 PCR This automated, real-time RT -PCR assay by [email or web address] on the [employer] has 04/16/2020 9:02 PM [facility] [place] Comment been given Emergency Use Aut horization (EUA) for the in vitro qualitative detection of RNA CDT [facility] ER from the SARS-CoV2 virus in nasopharyngeal swabs in viral transport medium from patients [facility] with signs and symptoms of i nfection who are suspected of COVID-19. The performance is unknown in asymptomatic patients. Comment: Nasopharyngeal specimen is the preferred choice for swab-based SARS-CoV2 testing. Sample types other than nasopha ryngeal swabs were not included in the EUA. The test result from other sample types must be integrated into clinical context for interpretation. A negative result does not rule out the presence of real-time PCR inhibitors in the specimen or COVID-19 RNA in mg ntration below the limit of detection of the assay. The possibility of a false negative should be considered if the patients recent exposure or clinical pre sentation suggests COVID-19. Additional testing or repeat testing req uires consultation with the laboratory. Positive results should also be reported in accordance with local, state, and federal regulations. This test was valid ated by [facility] Infectious Diseases Diagnostic Laboratory. This lab oratory is certified under the Clinical Laboratory Improvement Amendmen ts of 1988 (CLIA-88) as qualified to perform high complexity clinical laborat ory testing. Specimen (Source) Anatomical Collection Method Collection Time Re ceived Time Location / / Volume Laterality Specimen from 04/16/2020 3:51 04/16/2020 nasopharyngeal PM CDT 4:27 PM CDT structure (specimen) Uri Golden PA-C LAB - MICRO GENERAL ORDERABL ES Performing Organization Address City/State/ZIP Code Phon e Number [address] [address] [facility] INFECTIOUS DISEASES [address] [place] [address], A DIAGNOSTIC LABORATORY Symptomatic COVID-19 Virus (Coronavirus) by PCR (04/16/2020 3:51 PM CDT) Component Value Ref Test Analysis Performed At [facility] Range Method Time Signature COVID-19 Nasopharyngeal 04/16/2020 EXETER Virus PCR to 3:51 PM CDT [facility] U of [facility] Source COVID-19 Test received-See 04/16/2020 INFECTIOUS Virus PCR to reflex to IDDL 7:39 PM CDT DISEASES [facility] [place] - test SARS CoV2 DIAGNOSTIC Result (COVID-19) Virus LABORATORY RT-PCR Specimen (Source) Anatomical Collection Method Collection Time Re ceived Time Location / / Volume Laterality Specimen from 04/16/2020 3:51 04/16/2020 nasopharyngeal PM CDT 4:27 PM CDT structure (specimen) Uri Golden PA-C LAB - MICRO GENERAL ORDERABL ES Performing Organization Address City/State/ZIP Code Phon e Number INFECTIOUS DISEASES [address] [place] [address] DIAGNOSTIC LABORATORY, [facility] [address] [place] [id number] [facility] [phone] INFECTIOUS DISEASES [address] [place] [address], A DIAGNOSTIC LABORATORY CT Abdomen Pelvis w Contrast (04/16/2020 3:09 PM CDT) Anatomical Region Laterality Modality Abdomen/Pelvis, SUBRAD CT BODY, UMP CT ABDOMEN PELVIS, Computed Tomography RAD CT Specimen (Source) Anatomical Location Collection Method / Collectio n Time Received Time / Laterality Volume Impressions 04/16/2020 5:02 PM CDT IMPRESSION: 1. ??Extensive pancreatic calcification and dilatation of the pancreatic duct is new since the previou s exam, and likely related to chronic pancreatitis. 2. ??Hazy increased density about the pa ncreas is suspicious for some degree of superimposed acute pancreatiti s. Clinical and laboratory correlation are recommended. 3. ??Several rim-enhancing peripancreati c fluid collections are new since the previous exam, and are suspici ous for pseudocysts. 4. ??Small amount of ascites. 5. ??Emphysematous changes at both lung bases. TANYA HUBER MD Narrative 04/16/2020 5:[address] ABDOMEN PELVIS W CONTRAST 04/16/2020 3:09 PM CLINICAL HISTORY: Right-sided abdominal pain. TECHNIQUE: CT scan of the abdomen and pe lvis was performed following injection of IV contrast. Multiplanar re formats were obtained. Dose reduction techniques were used. CONTRAST: 61 mL Isovue-370 COMPARISON: None. FINDINGS: LOWER CHEST: Mild scattered scarring and /or atelectasis at both lung bases. Emphysematous changes are noted i nvolving both lung bases. Coronary artery calcification. HEPATOBILIARY: Small area of low density in the medial segment of the left hepatic lobe is unchanged, and like ly represents focal fatty infiltration. PANCREAS: Extensive pancreatic calcifica tion is new since the previous exam, and is likely related to chronic p ancreatitis. Dilatation of the pancreatic duct is new since the previou s exam, and is also likely related to chronic pancreatitis, measuri ng up to 0.9 cm in the pancreatic head and neck. Ill-defined hinojosa zy increased density about the pancreas could be related to a superimpo sed acute pancreatitis. There are several rim-enhancing fluid collecti ons adjacent to the pancreas, with the largest along the anterior aspe ct of the pancreatic head (series 4 image 97) measuring 3.8 x 2.9 cm. There is also an elongated fluid collection extending superiorly fr om the pancreatic tail into the retrocrural region along the right a spect of the distal esophagus (series 4 images 29-62). A smaller less well-defined fluid collection is also noted along the anterior inferio r aspect of the pancreatic body (series 4 image 80). No air bubbles are seen within the peripancreatic fluid collection. SPLEEN: Normal. ADRENAL GLANDS: Normal. KIDNEYS/BLADDER: Normal. BOWEL: Colonic diverticulosis, without c onvincing evidence for diverticulitis. Unremarkable appendix. N o bowel obstruction. PELVIC ORGANS: Normal. ADDITIONAL FINDINGS: There is advanced a therosclerotic aortoiliac calcification. There is a small amount o f nonspecific free fluid in the pelvis as well as about the liver. MUSCULOSKELETAL: Unremarkable. Procedure Note Tanya Huber MD - 04/16/2020Forma tting of this note might be different from the original. CT ABDOMEN PELVIS W CONTRAST 04/16/2020 3 :09 PM CLINICAL HISTORY: Right-sided abdominal pain. TECHNIQUE: CT scan of the abdomen and pe lvis was performed following injection of IV contrast. Multiplanar re formats were obtained. Dose reduction techniques were used. CONTRAST: 61 mL Isovue-370 COMPARISON: None. FINDINGS: LOWER CHEST: Mild scattered scarring and /or atelectasis at both lung bases. Emphysematous changes are noted i nvolving both lung bases. Coronary artery calcification. HEPATOBILIARY: Small area of low density in the medial segment of the left hepatic lobe is unchanged, and like ly represents focal fatty infiltration. PANCREAS: Extensive pancreatic calcifica tion is new since the previous exam, and is likely related to chronic p ancreatitis. Dilatation of the pancreatic duct is new since the previou s exam, and is also likely related to chronic pancreatitis, measuri ng up to 0.9 cm in the pancreatic head and neck. Ill-defined hinojosa zy increased density about the pancreas could be related to a superimpo sed acute pancreatitis. There are several rim-enhancing fluid collecti ons adjacent to the pancreas, with the largest along the anterior aspe ct of the pancreatic head (series 4 image 97) measuring 3.8 x 2.9 cm. There is also an elongated fluid collection extending superiorly fr om the pancreatic tail into the retrocrural region along the right a spect of the distal esophagus (series 4 images 29-62). A smaller less well-defined fluid collection is also noted along the anterior inferio r aspect of the pancreatic body (series 4 image 80). No air bubbles are seen within the peripancreatic fluid collection. SPLEEN: Normal. ADRENAL GLANDS: Normal. KIDNEYS/BLADDER: Normal. BOWEL: Colonic diverticulosis, without c onvincing evidence for diverticulitis. Unremarkable appendix. N o bowel obstruction. PELVIC ORGANS: Normal. ADDITIONAL FINDINGS: There is advanced a therosclerotic aortoiliac calcification. There is a small amount o f nonspecific free fluid in the pelvis as well as about the liver. MUSCULOSKELETAL: Unremarkable. IMPRESSION: 1. Extensive pancreatic calcification an d dilatation of the pancreatic duct is new since the previou s exam, and likely related to chronic pancreatitis. 2. Hazy increased density about the panc reas is suspicious for some degree of superimposed acute pancreatiti s. Clinical and laboratory correlation are recommended. 3. Several rim-enhancing peripancreatic fluid collections are new since the previous exam, and are suspici ous for pseudocysts. 4. Small amount of ascites. 5. Emphysematous changes at both lung ba ses. TANYA HUBER MD Uri SCANLON-C IMG CT ORDERABLES EKG 12-lead, tracing only (04/16/2020 2:07 PM CDT) [facility] gist Method Time Signature Interpretation ECG Click View RADIOLOGY Image link RESULTS to view waveform and result Specimen (Source) Anatomical Collection Method Collection Time Re ceived Time Location / / Volume Laterality 04/16/2020 2:07 PM CDT Uri Golden PA-C ECG ORDERABLES Performing Organization Address City/[facility]/ZIP [facility] Phon e Number RADIOLOGY RESULTS Alcohol ethyl (04/16/2020 1:10 PM CDT) athologist Signature Ethanol g/dL <0.01 <0.01 g/dL 04/16/2020 EXETER 5:46 PM [facility] Specimen Anatomical Collection Method Collection Time Receive d Time (Source) Location / / Volume Laterality 04/16/2020 1:10 PM 0 1:25 CDT PM CDT Uri SCANLON-C LAB - BLOOD ORDERABLES Performing Organization Address [facility] Phon e Number M [facility] [address], [place] [address] [facility] [address] [place] [address] [address] [address] (ABNORMAL) Lactic acid whole blood (04/16/2020 1:10 PM CDT) athologist Signature Lactic Acid 2.3 (H) 0.7 - 2.0 04/16/2020 EXETER mmol/L 1:28 PM [facility] Specimen Anatomical Collection Method Collection Time Receive d Time (Source) Location / / Volume Laterality Blood specimen 04/16/2020 1:10 PM 020 1:25 (specimen) CDT PM CDT Uri SCANLON-C LAB - BLOOD ORDERABLES Performing Organization Address [facility] Phon e Number M [facility] [address], [place] [address] [facility] [address] [place], [place] [address] [facility] [phone] (ABNORMAL) Lipase (04/16/2020 1:10 PM CDT) athologist Signature Lipase 1,163 (H) 73 - 393 04/16/2020 EXETER U/L 1:[address] [facility] Specimen Anatomical Collection Method Collection Time Receive d Time (Source) Location / / Volume Laterality Blood specimen 04/16/2020 1:10 PM 020 1:25 (specimen) CDT PM CDT Uri Golden PA-C LAB - BLOOD ORDERABLES Performing Organization Address City/State/ZIP Code Phon e Number M [facility] [address] [place] [address] [facility] [address] [place] [address], [place] [phone] (ABNORMAL) Comprehensive metabolic panel (04/16/2020 1:10 PM CDT) athologist Signature Sodium 136 133 - 144 04/16/2020 EXETER mmol/L 1:48 PM [facility] Potassium 2.6 (LL) 3.4 - 5.3 04/16/2020 EXETER mmol/L 1:48 PM [facility] Comment: Critical Value called to and read back Aiden HIRSCH (ERA) ON 04.16.20 AT 1347 BY AEF Chloride 96 94 - 109 mmol/L 04/16/2020 1:48 PM [facility] Carbon Dioxide 34 (H) 20 - 32 mmol/L 04/16/2020 1:[address] [facility] Anion Gap 6 3 - 14 mmol/L 04/16/2020 1:48 PM [facility] Glucose 107 (H) 70 - 99 mg/dL 04/16/2020 1:48 PM [facility] Urea Nitrogen 20 7 - 30 mg/dL 04/16/2020 1:48 PM [facility] Creatinine 0.58 (L) 0.66 - 1.25 mg/dL 04/16/2020 1:48 PM [facility] GFR Estimate >90 >60 04/16/2020 1:48 PM [facility] mL/min/{1.73_m2} [facility] Comment: Non GFR Calc Starting 11/05/2018, serum creatinine ba sed estimated GFR (eGFR) will be calculated using the Chronic Kidney Dise [facility] Epidemiology Collaboration (CKD-EPI) equation. GFR Estimate If >90 >60 mL/min/{1.73_m2} 04/16/2020 1: 48 PM [facility] Comment: GFR Calc Starting 11/05/2018, serum creatinine ba sed estimated GFR (eGFR) will be calculated using the Chronic Kidney Dise [facility] Epidemiology Collaboration (CKD-EPI) equation. Calcium 8.4 (L) 8.5 - 10.1 04/16/2020 1:48 PM [facility] mg/dL [facility] Bilirubin Total 1.6 (H) 0.2 - 1.3 mg/dL 04/16/2020 1:48 PM [facility] Albumin 2.4 (L) 3.4 - 5.0 g/dL 04/16/2020 1:48 PM [facility] Protein Total 7.0 6.8 - 8.8 g/dL 04/16/2020 1:48 PM [facility] Alkaline Phosphatase 134 40 - 150 U/L 04/16/2020 1:48 PM [facility] ALT 192 (H) 0 - 70 U/L 04/16/2020 1:48 PM [facility] AST 43 0 - 45 U/L 04/16/2020 1:48 PM [facility] Specimen Anatomical Collection Method Collection Time Receive d Time (Source) Location / / Volume Laterality Blood specimen 04/16/2020 1:10 PM 020 1:25 (specimen) CDT [facility] Uri Golden PA-C LAB - BLOOD ORDERABLES Performing Organization Address City/State/ZIP Code Phon e Number M [facility] [address] [place] [address] [phone] [facility] [address] [place] [address], [facility] [phone] (ABNORMAL) CBC with platelets differential (04/16/2020 1:10 PM [facility]) [facility] gist Method Time Signature WBC 9.1 4.0 - 04/16/2020 [facility] 11.0 1:28 PM [facility] 10e9/L HOSPITAL RBC Count 3.49 (L) 4.4 - 5.9 04/16/2020 [facility] 10e12/L 1:28 PM [facility] Hemoglobin 13.5 13.3 - 04/16/2020 [facility] 17.7 g/dL 1:28 PM [facility] Hematocrit 38.3 (L) 40.0 - 04/16/2020 [facility] 53.0 % 1:28 PM [facility] MCV 110 (H) 78 - 100 04/16/2020 [facility] fl 1:28 [facility] MCH 38.7 (H) 26.5 - 04/16/2020 [facility] 33.0 pg 1:28 PM [facility] MCHC 35.2 31.5 - 04/16/2020 [facility] 36.5 g/dL 1:28 PM [facility] RDW 17.2 (H) 10.0 - 04/16/2020 [facility] 15.0 % 1:28 PM [facility] Platelet Count 269 150 - 450 04/16/2020 [facility] 10e9/L 1:28 [facility] Diff Method Automated 04/16/2020 [facility] Method 1:28 PM [facility] % Neutrophils 81.0 % 04/16/2020 [facility] 1:28 PM [facility] % Lymphocytes 10.9 % 04/16/2020 [facility] 1:28 PM [facility] % Monocytes 6.8 % 04/16/2020 [facility] 1:28 PM [facility] % Eosinophils 0.7 % 04/16/2020 [facility] 1:28 PM [facility] % Basophils 0.2 % 04/16/2020 [facility] 1:28 PM [facility] % Immature 0.4 % 04/16/2020 [facility] Granulocytes 1:28 PM [facility] Nucleated RBCs 0 0 /100 04/16/2020 [facility] 1:28 PM [facility] Absolute 7.4 1.6 - 8.3 04/16/2020 [facility] Neutrophil 10e9/L 1:28 PM [facility] Absolute 1.0 0.8 - 5.3 04/16/2020 [facility] Lymphocytes 10e9/L 1:28 PM [facility] Absolute 0.6 0.0 - 1.3 04/16/2020 [facility] Monocytes 10e9/L 1:28 PM [facility] Absolute 0.1 0.0 - 0.7 04/16/2020 [facility] Eosinophils 10e9/L 1:28 PM [facility] Absolute 0.0 0.0 - 0.2 04/16/2020 [facility] Basophils 10e9/L 1:28 PM [facility] Abs Immature 0.0 0 - 0.4 04/16/2020 [facility] Granulocytes 10e9/L 1:28 PM [facility] Absolute 0.0 04/16/2020 EX[facility] Nucleated RBC 1:28 PM [facility] Specimen Anatomical Collection Method Collection Time Receive d Time (Source) Location / / Volume Laterality Blood specimen 04/16/2020 1:10 PM 020 1:25 (specimen) CDT CDT Uri Golden PA-C LAB - BLOOD ORDERABLES Performing Organization Address City/State/ZIP Code Phon e Number [place] [address] [address] [place] [address] [facility] [address] [phone] documented in this encounter Visit Diagnoses Diagnosis Alcohol-induced acute pancreatitis witho ut infection or necrosis - Primary Acute pancreatitis Pancreatic pseudocyst Cyst and pseudocyst of pancreas Dyspnea Other dyspnea and respiratory abnormalit y Hypokalemia Hypopotassemia Lactic acidosis Acidosis Pancreatitis Acute pancreatitis documented in this encounter Administered Medications Inactive Administered Medications - up to 3 most recent administrations Medication Order MAR Action Action Date Dose Rate Site 0.9% sodium chloride + KCl 20 New Bag 04/20/2020 5:22 AM CDT 100 mL/hr mEq/L infusion at 100 mL/hr, Intravenous, CONTINUOUS, Starting on 04/17/20 at 1400, Until Tu04/20/20 at 1232 Rate/Dose Verify 04/19/2020 11:37 PM CDT 100 mL/hr Rate/Dose Verify 04/19/2020 8:26 PM CDT 100 mL/hr 0.9% sodium chloride BOLUS New Bag 04/16/2020 12:58 PM 1,000 mLs 1000 mL/hr Intravenous, 1,000 mL, ONCE, at CDT 1,000 mL/hr, Administer over 1 Hours, On Sun04/16/20 at 1253, For 1 dose 0.9% sodium chloride BOLUS New Bag 04/16/2020 3:17 PM CDT 1,000 mLs 1000 mL/hr Intravenous, 1,000 mL, ONCE, at 1,000 mL/hr, Administer over 1 Hours, On Sun04/16/20 at 1505, For 1 dose acetaminophen (TYLENOL) tablet 650 mg Given 04/21/2020 9:29 PM CDT 650 mg 650 mg (14.8 mg/kg), Oral, EVERY 4 HOURS PRN, mild pain, fever, Starting on Sun04/21/20 at 1006, Maximum acetaminophen dose from all sources = 75 mg/kg/day not to exceed 4 grams/day. Given 04/21/2020 5:18 PM CDT 650 mg Given 04/21/2020 10:22 AM CDT 650 mg aspirin (ASA) EC tablet 325 mg Given 04/22/2020 8:05 AM CDT 325 mg 325 mg (7.4 mg/kg), Oral, DAILY, First dose on 04/17/20 at 1345, DO NOT CRUSH. Given 04/21/2020 8:20 AM CDT 325 mg Given 04/20/2020 8:27 AM CDT 325 mg atenolol (TENORMIN) tablet 25 mg Given 04/21/2020 5:18 PM CDT 25 mg 25 mg (0.569 mg/kg), Oral, DAILY WITH SUPPER, First dose on 04/17/20 at 1700, Hold if systolic blood pressure is less than 100 or pulse less than 60 Given 04/20/2020 5:42 PM CDT 25 mg Given 04/19/2020 4:18 PM CDT 25 mg fluticasone-vilanterol (BREO ELLIPTA) 100-25 Given 02/2020 8:16 AM CDT 1 puff MCG/INH inhaler 1 puff 1 puff, Inhalation, DAILY, First dose on 04/17/20 at 1345, *Do not use more frequently than once daily.* Rinse mouth after use. Given 04/21/2020 8:49 AM CDT 1 puff Given 04/20/2020 7:40 AM CDT 1 puff furosemide (LASIX) injection 20 mg Given 04/21/2020 11:53 AM CDT 20 mg 20 mg (0.456 mg/kg), Intravenous, ONCE, Administer over 1-3 Minutes, On Sun04/21/20 at 1115, For 1 dose, Administer undiluted IV push at a rate of 20 to 40 mg per minute. HYDROcodone-acetaminophen (NORCO) 5-325 MG Given 04/22 12:52 AM CDT 1 tablet per tablet 1 tablet 1 tablet, Oral, ONCE PRN, moderate to severe pain, Starting on Sun04/21/20 at 2348, For 1 dose, Maximum acetaminophen dose from all sources= 75 mg/kg/day not to exceed 4 grams HYDROmorphone (PF) (DILAUDID) injection Given 04/21/2020 6:09 AM CDT 0.5 mg 0.3-0.5 mg 0.3-0.5 mg, Intravenous, EVERY 2 HOURS PRN, other, for pain control or improvement in physical function. Hold dose for analgesic side effects., Starting on Sun04/16/20 at 1815, Start at the lowest dose. May adjust dose by 0.1 mg every 2 hours as needed. Notify provider to assess for uncontrolled pain or analgesic side effects. Hold while on NANNY BABYSITTER or with regular IV opioid dosing For ordered IV doses 0.1-4 mg give IV Push undiluted. Administer each 2mg over 2-5 minutes. Given 04/21/2020 3:02 AM CDT 0.5 mg Given 04/21/2020 12:28 AM CDT 0.5 mg HYDROmorphone (PF) (DILAUDID) injection 0.5 Given 04/16/2020 1:05 PM CDT 0.5 mg mg 0.5 mg, Intravenous, ONCE PRN, other, pain control or improvement in physical function. Hold dose for analgesic side effects., Starting on Sun04/16/20 at 1252, For 1 dose, Notify the provider to assess for uncontrolled pain or analgesic side effects. Hold while on IV NANNY BABYSITTER or with regular IV opioid dosing. For ordered IV doses 0.1-4 mg give IV Push undiluted. Administer each 2mg over 2-5 minutes. iopamidol (ISOVUE-370) solution 61 mL Given 04/16/2020 3:02 PM CDT 61 mLs 61 mL, Intravenous, ONCE, On Sun04/16/20 at 1503, For 1 dose lisinopril (ZESTRIL) tablet 20 mg Given 04/21/2020 5:18 PM CDT 20 mg 20 mg (0.456 mg/kg), Oral, DAILY WITH SUPPER, First dose (after last reorder) on Sun04/19/20 at 1215 Given 04/20/2020 5:42 PM CDT 20 mg Given 04/19/2020 4:18 PM CDT 20 mg magnesium sulfate 4 g in 100 mL sterile water New Bag 6:03 PM CDT 4 g (premade) 4 g, Intravenous, Administer over 120 Minutes, EVERY 4 HOURS PRN, magnesium supplementation, Starting on Sun04/16/20 at 1815, For serum Mg++ less than 1.6 mg/dL Give 4 g and recheck magnesium level 2 hours after dose, and next AM. melatonin tablet 1 mg Given 04/20/2020 9:59 PM CDT 1 mg 1 mg, Oral, AT BEDTIME PRN, sleep, Starting on Sun04/16/20 at 1815, Do not give unless at least 6 hours of uninterrupted sleep is expected. Given 04/19/2020 11:35 PM CDT 1 mg Given 04/18/2020 10:55 PM CDT 1 mg multivitamin w/minerals (THERA-VIT-M) ta blet 1 tablet 1 tablet, Oral, DAILY, First dose on Sun04/23/20 at 090 0 nicotine (NICODERM CQ) 21 Patch/Med Applied 04/22/2020 8:04 AM CDT 1 patch Right Arm MG/24HR 24 hr patch 1 patch 1 patch, Transdermal, DAILY, Administer over 24 Hours, First dose on Sun04/16/20 at 1845, Reminder: Remove previous patch before applying new patch. Patch/Med Applied 04/21/2020 8:19 AM CDT 1 patch Left Arm Patch/Med Applied 04/20/2020 8:29 AM CDT 1 patch Right Shoulder nicotine (NICORETTE) gum 2 mg 2 mg (0.0456 mg/kg), Buccal, EVERY 1 IDA R PRN, smoking cessation, Starting on Sun04/16/20 at 1841, Gum should be chewed sl owly until it tingles, then placed between cheek and gum: when tingle gone, repeat process until tingle gone (about 30 minutes). nicotine Patch in Place First dose on Sun04/16/20 at 1845, Chart every shift, confirming that patch is still in place on patient (no barcode scan needed). Se e patch order for dose information. ondansetron (ZOFRAN) injection 4 mg Given 04/16/2020 1:05 PM CDT 4 mg 4 mg, Intravenous, EVERY 30 MIN PRN, nausea, vomiting, Administer over 2-5 Minutes, Starting on Sun04/16/20 at 1252, For 3 doses, May repeat in 30 minutes as needed, up to 3 doses. Irritant. For ordered IV doses 0.1-4 mg, give IV Push undiluted over 2-5 minutes. potassium & sodium phosphates (NEUTRA-PHOS) Given 02/2020 8:04 AM CDT 1 packet Packet 1 packet 1 packet, Oral, 2 TIMES DAILY, First dose on Sun04/20/20 at 1245 Given 04/21/2020 9:29 PM CDT 1 packet Given 04/21/2020 8:20 AM CDT 1 packet potassium chloride (KLOR-CON) Packet 20-40 Given 04/17/2020 12:35 PM CDT 20 mEq mEq 20-40 mEq, Oral or Feeding Tube, EVERY 2 HOURS PRN, potassium supplementation, Starting on Sun04/16/20 at 1815, Use if unable to tolerate tablets. If Serum K+ 3.0-3.3, dose = 60 mEq po total dose (40 mEq x1 followed in 2 hours by 20 mEq x1). Recheck K+ level 4 hours after dose and the next AM. If Serum K+ 2.5-2.9, dose = 80 mEq po total dose (40 mEq Q2H x2). Recheck K+ level 4 hours after dose and the next AM. If Serum K+ less than 2.5, See IV order. Dissolve packet contents in 4-8 ounces of cold water or juice. Given 04/17/2020 10:26 AM CDT 40 mEq potassium chloride (KLOR-CON) Packet 40 mEq Given 04/16/2020 2:27 PM CDT 40 mEq 40 mEq, Oral, ONCE, On Sun04/16/20 at 1419, For 1 dose, Dissolve packet contents in 4-8 ounces of cold water or juice. potassium chloride 10 mEq in 100 mL New Bag 04/16/2020 2:13 PM CDT 10 mEq intermittent infusion with 10 mg lidocai ne 10 mEq, Intravenous, Administer over 1 Hours, ONCE, On Sun04/16/20 at 1404, For 1 dose potassium phosphate 15 mmol in New Bag 04/17/2020 7:44 PM CDT 15 mmol 62.5 mL/hr D5W 250 mL intermittent infusion 15 mmol (0.342 mmol/kg), Intravenous, Administer over 4 Hours, DAILY PRN, phosphorous supplementation, Starting on 04/17/20 at 1246, For serum phosphorus level 2-2.4 Do not infuse Phosphorus in the same line as TPN. Give 15 mmol and recheck phosphorus level next AM. Each mmol of phosphate provides 1.47 mEq of Potassium. Multiply the patient's phosphate dose by 1.47 to determine the amount of potassium in this dose. potassium phosphate 20 mmol in D5W 250 m L intermittent infusion 20 mmol (0.456 mmol/kg), Intravenous, Ad sweep molder over 4 Hours, EVERY 6 HOURS PRN, phosphorous supplementation, Starting on 04/17/20 at 1246, For serum phosphorus level 1.1-1.9 For CENTRAL Line ONLY Do n ot infuse Phosphorus in the same line as TPN. Give 20 mmol and recheck phosphorus level 2 hours after last dose and next AM. Each mmol of phosphate provides 1.47 mEq of Potassium. Multiply the patient's phosphate dose by 1.47 to determine the amount of pota ssium in this dose. potassium phosphate 20 mmol in New Bag 04/19/2020 10:47 AM CDT 20 mmol 125 mL/hr D5W 500 mL intermittent infusion 20 mmol (0.456 mmol/kg), Intravenous, Administer over 4 Hours, EVERY 6 HOURS PRN, phosphorous supplementation, Starting on 04/17/20 at 1246, For serum phosphorus level 1.1-1.9 For Peripheral Line Do not infuse Phosphorus in the same line as TPN. Give 20 mmol and recheck phosphorus level 2 hours after last dose and next AM. Each mmol of phosphate provides 1.47 mEq of Potassium. Multiply the patient's phosphate dose by 1.47 to determine the amount of potassium in this dose. New Bag 04/18/2020 6:41 PM CDT 20 mmol 125 mL/hr New Bag 04/18/2020 10:21 AM CDT 20 mmol potassium phosphate 25 mmol in D5W 500 m L intermittent infusion 25 mmol (0.569 mmol/kg), Intravenous, Ad sweep molder over 6 Hours, EVERY 8 HOURS PRN, phosphorous supplementation, Starting on 04/17/20 at 1246, For serum phosphorus level less than 1.1 Do not infuse Phosph orus in the same line as TPN. Give 25 mmol and recheck phosphorus level 2 hours after last dose a nd next AM. Each mmol of phosphate provides 1.47 mEq of Potassium . Multiply the patient's phosphate dose by 1.47 to determine the amount of potassium in this dose . prochlorperazine (COMPAZINE) injection 1 0 mg 10 mg, Intravenous, EVERY 6 HOURS PRN, nausea, vomitin g, Administer over 1-2 Minutes, Starting on Sun04/16/20 at 1815, This is Step 2 of nausea and vomiting management. Give if nausea not resolved 15 minutes aft er giving ondansetron (ZOFRAN). If nausea not resolved in 15 minutes, go to Step 3 metoclopramide (REGLAN), if ordered. For ordered IV dos es 0.1-10 mg, give IV Push undiluted. Each 5mg over 1 minute. prochlorperazine (COMPAZINE) Suppository 25 mg 25 mg, Rectal, EVERY 12 HOURS PRN, nausea, vomiting, S tarting on Sun04/16/20 at 1815, This is Step 2 of nausea and vomit ing management. Give if nausea not resolved 15 minutes after giving ondansetron (ZOF RAN). If nausea not resolved in 15 minutes, go to Step 3 metoclopramide (REGLAN), if ordered. prochlorperazine (COMPAZINE) tablet 10 m g 10 mg, Oral, EVERY 6 HOURS PRN, vomiting , Starting on Sun04/16/20 at 1815, This is Step 2 of nausea and vomiting management . Give if nausea not resolved 15 minutes after giving ondansetron (ZOFRAN). If na usea not resolved in 15 minutes, go to Step 3 metoclopramide (REGLAN), if ordered. sodium chloride (PF) 0.9% PF flush 3 mL Given 04/21/2020 5:18 PM CDT 3 mLs 3 mL, Intracatheter, EVERY 8 HOURS, First dose on Sun04/16/20 at 1816, And Q1H PRN, to lock peripheral IV dormant line. Given 04/21/2020 3:02 AM CDT 3 mLs Given 04/20/2020 5:46 PM CDT 3 mLs sodium chloride (PF) 0.9% PF flush 3 mL Given 04/22/2020 2:42 AM CDT 3 mLs 3 mL, Intracatheter, EVERY 8 HOURS, First dose on Sun04/16/20 at 1816, And Q1H PRN, to lock peripheral IV dormant line. Given 04/21/2020 5:18 PM CDT 3 mLs Given 04/21/2020 3:02 AM CDT 3 mLs sodium chloride (PF) 0.9% PF flush 51 mL Given 04/16/2020 3:02 PM CDT 51 mLs 51 mL, Intravenous, ONCE, On Sun04/16/20 at 1503, For 1 dose sodium chloride 0.9 % 1,000 mL with New Bag 04/20/2020 6:03 PM CDT 100 mL/hr Infuvite Adult 10 mL, thiamine 100 mg, folic acid 1 mg infusion 1,000 mL, at 100 mL/hr, Intravenous, EVERY 24 HOURS, 5 doses, First dose on Sun04/16/20 at 1816, Last dose on Sun04/20/20 at 1816, To avoid fluid overload, do not run maintenance IV during vitamin infusion. When patient tolerating oral medications or diet, pharmacist may discontinue this IV infusion and change multivitamin, thiamine and folate to oral equivalents. New Bag 04/19/2020 6:47 PM CDT 100 mL/hr New Bag 04/18/2020 11:27 PM CDT 100 mL/hr sodium chloride 0.9% infusion New Bag 04/16/2020 3:43 PM CDT 1,000 mLs 125 mL/hr at 125 mL/hr, Intravenous, CONTINUOUS, Administer after the bolus., Starting on Sun04/16/20 at 1353, Until Sun04/16/20 at 1815 sodium chloride 0.9% infusion New Bag 04/17/2020 10:17 AM CDT 100 mL/hr at 100 mL/hr, Intravenous, CONTINUOUS, Add 20mEq KCL/L, Starting on Sun04/16/20 at 1816, Until 04/17/20 at 1352 Rate/Dose Verify 04/16/2020 8:00 PM CDT 100 mL/hr New Bag 04/16/2020 6:37 PM CDT 100 mL/hr sodium phosphate 15 mmol in D5W New Bag 04/20/2020 11:00 AM CD T 15 mmol 62.5 mL/hr intermittent infusion 15 mmol (0.342 mmol/kg), Intravenous, DAILY PRN, phosphorous supplementation, Administer over 4 Hours, Starting on Sun04/20/20 at 0908, For serum phosphorus level 2-2.4 Do not infuse Phosphorus in the same line as TPN. Give 15 mmol and recheck phosphorus level next AM. Each mmol of phosphate provides 1.33 mEq of Sodium. Multiply the patient's phosphate dose by 1.33 to determine the amount of sodium in this dose. sodium phosphate 20 mmol in D5W intermit tent infusion 20 mmol (0.456 mmol/kg), Intravenous, EVERY 6 HOURS AZ N, phosphorous supplementation, Administer over 4 Hours , Starting on Sun04/20/20 at 0908, For serum phosphorus level 1.1-1.9 Do not infuse P hosphorus in the same line as TPN. Give 20 mmol and recheck phosphorus level 2 hour s after last dose and next AM. Each mmol of phosphate provides 1.33 mEq of Sodium. Multiply the pa tient's phosphate dose by 1.33 to determine the amount of sodium in this dose. sodium phosphate 25 mmol in D5W intermit tent infusion 25 mmol (0.569 mmol/kg), Intravenous, EVERY 8 HOURS AZ N, phosphorous supplementation, Administer over 6 Hours , Starting on Sun04/20/20 at 0908, For serum phosphorus level less than 1.1 Do not in fuse Phosphorus in the same line as TPN. Give 25 mmol and recheck phosphorus leve l 2 hours after last dose and next AM. Each mmol of phosphate provides 1.33 mEq of Sodium. Multipl y the patient's phosphate dose by 1.33 to determine the amount of sodium in this dose. umeclidinium (INCRUSE ELLIPTA) 62.5 MCG/INH Given 04/22/2020 8:16 AM CDT 1 puff inhaler 1 puff 1 puff, Inhalation, DAILY, First dose on 04/17/20 at 1345 Given 04/21/2020 8:49 AM CDT 1 puff Given 04/20/2020 7:42 AM CDT 1 puff documented in this encounter Active and Recently Administered Medications Times are shown in CDT. Scheduled Medication Order 04/20/2020 04/21/2020 04/22/2020 aspirin (ASA) EC tablet 325 mg 0827 (Given - Provider: Evaristo Neal RN) 0820 (Given - Provider: Galilea Davis LPN) 0805 (Given - Provider: Galilea Davis LPN) 325 mg (7.4 mg/kg), Oral, DAILY, First d ose on 04/17/20 at 1345, DO NOT CRUSH. atenolol (TENORMIN) tablet 25 mg 1742 (Given - Provide r: Anita Castle RN) 1718 (Given - Provider: Viviane Myers RN) 25 mg (0.569 mg/kg), Oral, DAILY WITH CRYSTAL PPER, First dose on 04/17/20 at 1700, Hold if systolic blood pressure is less than 100 or pulse less than 60 fluticasone-vilanterol (BREO ELLIPTA) 100-25 MCG/INH i nhaler 1 puff 0740 (Given - Provider: Laura Benjamin, RT) 0849 (Given - Provider: Darryl De RT) 0816 (Given - Provider: Kaia Brennan, RT) 1 puff, Inhalation, DAILY, First dose on 04/17/20 at 1345, *Do not use more frequently than once daily.* Rinse mouth after use. furosemide (LASIX) injection 20 mg (COMPLETED) 1153 (Given - Provider: Viviane Myers RN) 20 mg (0.456 mg/kg), Intravenous, ONCE, Administer over 1-3 Minutes, 04/21/20 at 1115, For 1 dose, Administer undiluted IV push at a rate of 20 to 40 mg per minute. lisinopril (ZESTRIL) tablet 20 mg 1742 (Given - Provid er: Anita Castle, RN) 1718 (Given - Provider: Viviane Myers RN) 20 mg (0.456 mg/kg), Oral, DAILY WITH CRYSTAL PPER, First dose (after last reorder) on Sun04/19/20 at 1215 multivitamin w/minerals (THERA-VIT-M) tablet 1 tablet 1 tablet, Oral, DAILY, First dose on Sun04/23/20 at 0900 nicotine (NICODERM CQ) 21 MG/24HR 24 hr patch 1 patch 0828 (Patch/Med Removed - Provider: Otilio Neal RN)0829 (Patch/Med Applied - Provider: Otilio Neal RN) 0819 (Patch/Med Applied - Provider: Adelso Davis LPN)0820 (Patch/Med Removed - Provider: Galilea Davis LPN) 0804 (Patch/Med Applied - Provider: Galilea Davis LPN)0805 (Patch/Med Removed - Provider: Galilea Davis LPN)1404 (Due: Patch/Med Removed - Provider: Orders Generic Provider - Comment: Time automatically adjust 1 patch, Transdermal, DAILY, Administer over 24 Hours, First dose on Sun04/16/20 at 1845, Reminder: Remove previous patch before applying new patch. ed from order being discontinued) nicotine Patch in Place 0319 (Patch in Place - Provi jian: Maribell Arrieta RN)0957 (Patch in Place - Provider: Otilio Neal RN)1746 (Patch in Place - Provider: Anita Castle RN) 0224 (Patch in Place - Provider: Lin Goncalves, RICHY)1036 (Patch in Place - Provider: Viviane Myers, RICHY)1711 (Patch in Place - Provider: Viviane Myers RN) 0200 (Patch in Place - Provider: Katelin silver RN)1106 (Patch in Place - Provider: Cece Bruno, RICHY) First dose on Sun04/16/20 at 1845, Chart every shift, confirming that patch is still in place on patient (no barcode scan needed). See patch order for dose information. potassium & sodium phosphates (NEUTRA-PHOS) Packet 1 p acket 1321 (Given - Provider: Otilio Neal, RN)2156 (Given - Provider: Anita Castle, RICHY) 0820 (Given - Provider: Galilea Davis, BENEFIT DIRECTOR)2129 (Given - Provider: Katelin Serrano, RICHY) 0804 (Given - Provider: Galilea Conway use, BENEFIT DIRECTOR) 1 packet, Oral, 2 TIMES DAILY, First dose on Sun04/20/20 at 1245 sodium chloride (PF) 0.9% PF flush 3 mL 0319 (Not Give n - Provider: Maribell Arrieta RN - Reason: IV Infusing)0957 (Not Given - Provider: Otilio Neal RN - Reason: IV Infusing)174 (Given - Provider: Anita Castle RN) 0302 (Given - Provider: Aspen Goncalves RN)1227 (Not Given - Provider: Viviane Myers RN - Reason: Other)1718 (Given - Provider: Viviane Myers RN) 0243 (Not Given - Provider: Rachel Mendez RN - Reason: Other - Comment: scanner in room not working)1106 (Canceled Entry - Provider: Cece Bruno RN) 3 mL, Intracatheter, EVERY 8 HOURS, Firs t dose on Sun04/16/20 at 1816, And Q1H PRN, to lock peripheral IV dormant line. sodium chloride (PF) 0.9% PF flush 3 mL 0319 (Not Give n - Provider: Maribell Arrieta RN - Reason: IV Infusing)0957 (Not Given - Provider: Otilio Neal RN - Reason: IV Infusing)1746 (Not Given - Provider: Anita Castle RN - Reason: Other - Comment: duplicate) 0302 (Given - Provider: Aspen hoffmann RN)1227 (Not Given - Provider: Viviane Myers RN - Reason: Other)1718 (Given - Provider: Viviane Myers RN) 0242 (Given - Provider: Rachel Mendez RN - Comment: scanner in room not working)1106 (Canceled Entry - Provider: Cece Bruno RN) 3 mL, Intracatheter, EVERY 8 HOURS, Firs t dose on Sun04/16/20 at 1816, And Q1H PRN, to lock peripheral IV dormant line. sodium chloride 0.9 % 1,000 mL with Infu aman Adult 10 mL, thiamine 100 mg, folic acid 1 mg infusion (COMPLETED) 180 (New Bag - Provider: Anita sharif RN) 1,000 mL, at 100 mL/hr, Intravenous, CATHRYN RY 24 HOURS, 5 doses, First dose on Sun04/16/20 at 1816, Last dose on Sun04/20/20 at 1816, To avoid fluid overload, do not run maintenance IV during vitamin infusi on. When patient tolerating oral medicat ions or diet, pharmacist may discontinue this IV infusion and change multivitamin, thiamine and folate to oral equivalents. umeclidinium (INCRUSE ELLIPTA) 62.5 MCG/INH inhaler 1 puff 0742 (Given - Provider: Laura Benjamin, RT) 0849 (Given - Provider: Darryl De RT) 0816 (Given - Provider: aKia Brennan RT) 1 puff, Inhalation, DAILY, First dose on 04/17/20 at 1345 Continuous Medication Order 04/20/2020 04/21/2020 04/22/2020 0.9% sodium chloride + KCl 20 mEq/L infusion (CANCELED ) 0522 (New Bag - Provider: Maribell Arrieta RN)1301 (Stopped - Provider: Otilio Neal RN) at 100 mL/hr, Intravenous, CONTINUOUS, S tarting Sun04/17/20 at 1400, Until Sun04/20/20 at 1232 PRN Medication Order 04/20/2020 04/21/2020 04/22/2020 acetaminophen (TYLENOL) Suppository 650 mg 650 mg, Rectal, EVERY 4 HOURS PRN, mild pain, Starting Sun04/16/20 at 1815, Alternate ibuprofen (if ordered) with acetaminophen. Maximum acetaminophen dose from all sources = 75 mg/kg/day not to exceed 4 grams/day. acetaminophen (TYLENOL) tablet 650 mg 10 22 (Given - Provider: Viviane Myers RN)171 (Given - Provider: Viviane Myers RN)212 (Given - Provider: Katelin Serrano RICHY) 650 mg (14.8 mg/kg), Oral, EVERY 4 HOURS PRN, mild pain, fever, Starting Sun04/21/20 at 1006, Maximum acetaminophen dose from all sources = 75 mg/kg/day not to exceed 4 grams/day. HYDROcodone-acetaminophen (NORCO) 5-325 MG per tablet 1 tablet ( COMPLETED) 51 (Given - Provider: Katelin Serrano RN) 1 tablet, Oral, ONCE PRN, moderate to se carmen pain, Starting Sun04/21/20 at 2348, For 1 dose, Maximum acetaminophen dose from all sources= 75 mg/kg/day not to exceed 4 grams HYDROmorphone (PF) (DILAUDID) injection 0.3-0.5 mg (CA NCELED) 0031 (Given - Provider: Maribell Arrieta RN)0307 (Given - Provider: Maribell Arrieta RN)0522 (Given - Provider: Maribell Arrieta, RICHY)0836 (Given - Provider: Otilio Neal RN)1114 (Given - Provider: Otilio Neal RN) 0028 (Given - Provider: Aspen Goncalves, RICHY)0302 (Given - Provider: Aspen Goncalves, RICHY)0609 (Given - Provider: Aspen Goncalves RN) 0.3-0.5 mg, Intravenous, EVERY 2 HOURS P RN, other, for pain control or improvement in physical function. Hold dose for analgesic side effects., Starting Sun04/16/20 at 1815, Start at the lowest dose. Ma 1418 (Given - Provider: Otilio Neal RN)1742 (Given - Provider: Anita Castle, RICHY)2003 (Given - Provider: Anita Castle, RICHY)2159 (Given - Provider: Anita Castle, RICHY) y adjust dose by 0.1 mg every 2 hours as needed. Notify provider to assess for uncontrolled pain or analgesic side effects. Hold while on NANNY BABYSITTER or with regular IV opioid dosing For ordered IV doses 0.1-4 mg give IV Push undiluted. Administer each 2mg over 2-5 minutes. lidocaine (LMX4) cream Topical, EVERY 1 HOUR PRN, pain, with VA D insertion or accessing implanted port., Starting Sun04/16/20 at 1814, Do NOT give if patient has a history of allergy to any local anesthetic or any tho pro duct. Apply at least 30 minutes prior to VAD insertion or port access. In divided doses as needed for size of site for insertion with MAX Dose: 2.5 g (?? of 5 g tube) lidocaine 1 % 0.1-1 mL 0.1-1 mL, Other, EVERY 1 HOUR PRN, mild pain with VAD insertion., Starting Sun04/16/20 at 1814, Do NOT give if patient has a history of allergy to any local anesthetic or any tho product. MAX dose 1 mL subcutaneous OR intradermal in divided doses as needed for V AD insertion. magnesium sulfate 4 g in 100 mL sterile water (premade ) 1802 (New Bag - Provider: Anita Castle, RN) 4 g, Intravenous, Administer over 120 Mi nutes, EVERY 4 HOURS PRN, magnesium supplementation, Starting Sun04/16/20 at 1814, For serum Mg++ less than 1.6 mg/dL Give 4 g and recheck magnesium level 2 hours after dose, and next AM. melatonin tablet 1 mg 2158 (Given - Provider: Anita hope, RN) 1 mg, Oral, AT BEDTIME PRN, sleep, Start ing Sun04/16/20 at 1814, Do not give unless at least 6 hours of uninterrupted sleep is expected. naloxone (NARCAN) injection 0.1-0.4 mg 0.1-0.4 mg, Intravenous, EVERY 2 MIN PRN , opioid reversal, Starting Sun04/16/20 at 1814, For respiratory rate LESS than or EQUAL to 8. Partial reversal dose: 0.1 mg titrated q 2 minutes for Analgesia Si de Effects Monitoring Sedation Level of 3 (frequently drowsy, arousable, drifts to sleep during conversation).Full reversal dose: 0.4 mg bolus for Analgesia Side Effects Monitoring Sedation Level of 4 ( somnolent, minimal or no response to sti mulation). For ordered IV doses 0.1-2mg give IVP. Give each 0.4mg over 15 seconds in emergency situations. For non- emergent situations further dilute in 9mL of NS to facilitate titration of response. nicotine (NICORETTE) gum 2 mg 2 mg (0.0456 mg/kg), Buccal, EVERY 1 IDA R PRN, smoking cessation, Starting Sun04/16/20 at 1841, Gum should be chewed slowly until it tingles, then placed between cheek and gum: when tingle gone, repeat process until tingle gone (about 30 minutes). nitroGLYcerin (NITROSTAT) sublingual tablet 0.4 mg 0.4 mg, Sublingual, EVERY 5 MIN PRN, kelli st pain, Starting Sun04/16/20 at 1814, Maximum 3 doses in 15 minutes. Notify provider if no relief after 3 doses. IF patient has received sildenafil (VIAGRA/REVAT IO), avanafil (STENDRA) or vardenafil (L EVITRA/STAXYN) within the last 24 hours, OR tadalafil (CIALIS/ADCIRCA) within the last 48 hours inform provider. If patient is still having acute angina requiring treatment, an alternative treatment opt ion may be used such as: IV beta-azucena [2.5 mg - 5 mg metoprolol (LOPRESSOR)] if ordered by a provider. potassium chloride (KLOR-CON) Packet 20-40 mEq 20-40 mEq, Oral or Feeding Tube, EVERY 2 HOURS PRN, potassium supplementation, Starting Sun04/16/20 at 1814, Use if unable to tolerate tablets. If Serum K+ 3.0-3.3, dose = 60 mEq po total dose (40 mEq x 1 followed in 2 hours by 20 mEq x1). Rec heck K+ level 4 hours after dose and the next AM. If Serum K+ 2.5-2.9, dose = 80 mEq po total dose (40 mEq Q2H x2). Recheck K+ level 4 hours after dose and the ne xt AM. If Serum K+ less than 2.5, See IV order. Dissolve packet contents in 4-8 ounces of cold water or juice. potassium chloride 10 mEq in 100 mL intermittent infusion wi th 10 mg lidocaine 10 mEq, Intravenous, Administer over 1 H ours, EVERY 1 HOUR PRN, potassium supplementation, Starting Sun04/16/20 at 181, Infuse via PERIPHERAL LINE. Use potassium with lidocaine for pain with peripheral administration. If Serum K+ 3.0-3.3, do se = 10 mEq/hr x4 doses (40 mEq IV total dose). Recheck K+ level 2 hours after dose and the next AM. If Serum K+ less than 3.0, dose = 10 mEq/hr x6 doses (60 mEq IV total dose). Recheck K+ level 2 hours after dose and the next AM. potassium chloride 10 mEq in 100 mL ster ile water intermittent infusion (premix) 10 mEq, Intravenous, Administer over 60 Minutes, at 100 mL/hr, EVERY 1 HOUR PRN, potassium supplementation, Starting Sun04/16/20 at 1815, Infuse via PERIPHERAL LINE or CENTRAL LINE. Use for central line replacement if patient weight less than 65 kg, if patient is on TPN with high potassium content or if unit does not stock 20 mEq bags. If Serum K+ 3.0-3.3, dose = 10 mEq/hr x4 doses (40 mEq IV total do se). Recheck K+ level 2 hours after dose and the next AM. If Serum K+ less than 3.0, dose = 10 mEq/hr x6 doses (60 mEq IV total dose). Recheck K+ level 2 hours after dose and the next AM. potassium chloride 20 mEq in 50 mL intermittent infusion 20 mEq, Intravenous, Administer over 2 H ours, at 25 mL/hr, EVERY 1 HOUR PRN, potassium supplementation, Starting Sun04/16/20 at 181, Infuse via CENTRAL LINE Only. May need EKG if less than 65 kg or on TPN - Max rate is 0.3 mEq/kg/hr for kulwant ents not on EKG monitoring. If Serum K+ 3.0-3.3, dose = 20 mEq/hr x2 doses (40 mEq IV total dose). Recheck K+ level 2 hours after dose and the next AM. If Serum K + less than 3.0, dose = 20 mEq/hr x3 dos es (60 mEq IV total dose). Recheck K+ level 2 hours after dose and the next AM. potassium chloride ER (KLOR-CON M) CR tablet 20-40 mEq 20-40 mEq, Oral, EVERY 2 HOURS PRN, pota ssium supplementation, Starting Sun04/16/20 at 1815, Use if able to take PO. If Serum K+ 3.0-3.3, dose = 60 mEq po total dose (40 mEq x1 followed in 2 hours by 20 mEq x1). Recheck K+ level 4 hours after dose and the next AM. If Serum K+ 2.5- 2.9, dose = 80 mEq po total dose (40 mEq Q2H x2). Recheck K+ level 4 hours after dose and the next AM. If Serum K+ less than 2.5, See IV order. DO NOT CRUSH potassium phosphate 15 mmol in D5W 250 mL intermittent infusion 15 mmol (0.342 mmol/kg), Intravenous, Ad sweep molder over 4 Hours, DAILY PRN, phosphorous supplementation, Starting 04/17/20 at 1246, For serum phosphorus level 2-2.4 Do not infuse Phosphorus in the same line as TPN. Give 15 mmol and recheck p hosphorus level next AM. Each mmol of phosphate provides 1.47 mEq of Potassium. Multiply the patient's phosphate dose by 1.47 to determine the amount of potassium in this dose. potassium phosphate 20 mmol in D5W 250 mL intermittent infusion 20 mmol (0.456 mmol/kg), Intravenous, Ad sweep molder over 4 Hours, EVERY 6 HOURS PRN, phosphorous supplementation, Starting 04/17/20 at 1246, For serum phosphorus level 1.1-1.9 For CENTRAL Line ONLY Do n ot infuse Phosphorus in the same line as TPN. Give 20 mmol and recheck phosphorus level 2 hours after last dose and next AM. Each mmol of phosphate provides 1.47 mEq of Potassium. Multiply the patient's phosphate dose by 1.47 to determine the amount of potassium in this dose. potassium phosphate 20 mmol in D5W 500 mL intermittent infusion 20 mmol (0.456 mmol/kg), Intravenous, Ad sweep molder over 4 Hours, EVERY 6 HOURS PRN, phosphorous supplementation, Starting 04/17/20 at 1246, For serum phosphorus level 1.1-1.9 For Peripheral Line Do not infuse Phosphorus in the same line as T PN. Give 20 mmol and recheck phosphorus level 2 hours after last dose and next AM. Each mmol of phosphate provides 1.47 mEq of Potassium. Multiply the patient's p hosphate dose by 1.47 to determine the amount of potassium in th is dose. potassium phosphate 25 mmol in D5W 500 mL intermittent infusion 25 mmol (0.569 mmol/kg), Intravenous, Ad sweep molder over 6 Hours, EVERY 8 HOURS PRN, phosphorous supplementation, Starting 04/17/20 at 1246, For serum phosphorus level less than 1.1 Do not infuse Phosph orus in the same line as TPN. Give 25 mm ol and recheck phosphorus level 2 hours after last dose and next AM. Each mmol of phosphate provides 1.47 mEq of Potassium. Multiply the patient's phosphate dose by 1.47 to determine the amount of potassium in this dose. prochlorperazine (COMPAZINE) injection 10 mg(Linked Group 1) 10 mg, Intravenous, EVERY 6 HOURS PRN, n ausea, vomiting, Administer over 1-2 Minutes, Starting 04/16/20 at 1815, This is Step 2 of nausea and vomiting management. Give if nausea not resolved 15 minut es after giving ondansetron (ZOFRAN). If nausea not resolved in 15 minutes, go to Step 3 metoclopramide (REGLAN), if ordered. For ordered IV doses 0.1-10 mg, give IV Push undiluted. Each 5mg over 1 minute. prochlorperazine (COMPAZINE) Suppository 25 mg(Linked Group 1) 25 mg, Rectal, EVERY 12 HOURS PRN, nause a, vomiting, Starting 04/16/20 at 1815, This is Step 2 of nausea and vomiting management. Give if nausea not resolved 15 minutes after giving ondansetron (ZOFR AN). If nausea not resolved in 15 minute s, go to Step 3 metoclopramide (REGLAN), if ordered. prochlorperazine (COMPAZINE) tablet 10 mg(Linked Group 1) 10 mg, Oral, EVERY 6 HOURS PRN, vomiting , Starting 04/16/20 at 1815, This is Step 2 of nausea and vomiting management. Give if nausea not resolved 15 minutes after giving ondansetron (ZOFRAN). If jeremy sea not resolved in 15 minutes, go to St ep 3 metoclopramide (REGLAN), if ordered. sodium chloride (PF) 0.9% PF flush 3 mL 3 mL, Intracatheter, EVERY 1 MIN PRN, li ne flush, for peripheral IV flush post IV meds, Starting 04/16/20 at 1815 sodium chloride (PF) 0.9% PF flush 3 mL 3 mL, Intracatheter, EVERY 1 MIN PRN, li ne flush, for peripheral IV flush post IV meds, Starting Sun04/16/20 at 1815 sodium phosphate 15 mmol in D5W intermittent infusion 1100 (New Bag - Provider: Otilio Neal RN) 15 mmol (0.342 mmol/kg), Intravenous, Ad sweep molder over 4 Hours, DAILY PRN, phosphorous supplementation, Starting Sun04/20/20 at 0908, For serum phosphorus level 2-2.4 Do not infuse Phosphorus in the same line as TPN. Give 15 mmol and recheck ph osphorus level next AM. Each mmol of phosphate provides 1.33 mEq of Sodium. Multiply the patient's phosphate dose by 1.33 to determine the amount of sodium in this dose. sodium phosphate 20 mmol in D5W intermittent infusion 20 mmol (0.456 mmol/kg), Intravenous, Ad sweep molder over 4 Hours, EVERY 6 HOURS PRN, phosphorous supplementation, Starting Sun04/20/20 at 0908, For serum phosphorus level 1.1-1.9 Do not infuse Phosphorus in the same line as TPN. Give 20 mmol and recheck phosphorus level 2 hours after last dose and next AM. Each mmol of phosphate provides 1.33 mEq of Sodium. Multiply the patient's phosphate dose by 1.33 to determine the amount of sodium in this dose. sodium phosphate 25 mmol in D5W intermittent infusion 25 mmol (0.569 mmol/kg), Intravenous, Ad sweep molder over 6 Hours, EVERY 8 HOURS PRN, phosphorous supplementation, Starting Sun04/20/20 at 0908, For serum phosphorus level less than 1.1 Do not infuse Phospho zoraida in the same line as TPN. Give 25 mmo l and recheck phosphorus level 2 hours after last dose and next AM. Each mmol of phosphate provides 1.33 mEq of Sodium. Multiply the patient's phosphate dose by 1 .33 to determine the amount of sodium in this dose. Linked Groups Order Group 1: prochlorperazine (COMPAZINE) injection 10 mgJump to med 10 mg, Intravenous, EVERY 6 HOURS PRN, n ausea, vomiting, Administer over 1-2 Minutes, Starting Sun04/16/20 at 1815
This is Step 2 of nausea and vomiting management. Give if nausea not resolved 15 minutes after giving ondansetron (ZOF RAN). If nausea not resolved in 15 minutes, go to Step 3 metoclopramide (REGLAN), if ordered. For ordered IV doses 0.1-10 mg, give IV Push undiluted. Each 5mg over 1 minute.
Or prochlorperazine (COMPAZINE) tablet 10 mgJump to med 10 mg, Oral, EVERY 6 HOURS PRN, vomiting , Starting 04/16/20 at 1815
This is Step 2 of nausea and vomiting management. Give if nausea not resolved 15 minutes after giving ondansetron (ZOFRAN) . If nausea not resolved in 15 aimee shavonne, go to Step 3 metoclopramide (REGLAN), if ordered.
Or prochlorperazine (COMPAZINE) Suppository 25 mgJump to med 25 mg, Rectal, EVERY 12 HOURS PRN, nause a, vomiting, Starting 04/16/20 at 1815
This is Step 2 of nausea and vomiting management. Give if nausea not resolved 15 minutes after giving ondansetr on (ZOFRAN). If nausea not resolved in 15 minutes, go to Step 3 metoclopramide (REGLAN), if ordered.
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
--- OUTSIDE RECORDS SUMMARY | 2022-08-25 14:25 | XMS_ITS | Encounter Summary ---
:1960 Author Organization [place] Address [address] [facility] [place] [address] Care Team Providers Name Role Phone [facility] [place] Primary Care Provider [phone] [facility], [facility] Unavailable [phone] Guru Perry Conrad MD Unavailable + Jazmin Puentes RN Unavailable Unavailable Neyda, Jazmine MEDINAN Unavailable Jennifer Redmond Unavailable Robyn Almaraz APRN BLADE GRINDER Unavailable [phone] Robyn Almaraz APRN BLADE GRINDER Unavailable [phone] Reason for Visit Reason Comments Abdominal Pain Auth/Cert Specialty Diagnoses / Procedures Referred By Contact Refer red To Contact Diagnoses Hyponatremia Other acute pancreatitis, unspecified complication status Pancreatitis Rh 5 [facility] [address] [place], [place] [address] Phone: Fax: Referral ID Status Reason Start Date Expiration Date Visits Requ ested Visits Authorized [id number] 1 1 Encounter Details Date Type Department Care Team Description 11/18/2018 - [facility] Patsy Navarrete MD [facility] [address] [facility] [address] [place] [address] Anxiety (Primary Dx); 11/21/2018 Encounter [place] [address] [facility] Andrews Stanley MD [address] [place], [place] [address] Other acute pancreatitis, unspecified co mplication status; Surgical Hyponatremia [address] [place] [phone] Social History Tobacco Use Types Packs/Day Years Used Date Current Every Day Smoker 1 28 Alcohol Use Standard Drinks/Week Comments Yes 1.7 (1 standard drink = 0.6 oz pure alco hol) Sex Assigned at Date Recorded Not on file documented as of this encounter Last Filed Vital Signs Vital Sign Reading Time Taken Comments Blood Pressure 165/104 11/21/2018 7:45 AM [employer] Pulse 82 11/21/2018 8:15 AM [employer] Temperature 36.9 ??C (98.4 ??F) 11/21/2018 7:45 AM [employer] Respiratory Rate 18 11/21/2018 8:15 AM [employer] Oxygen Saturation 97% 11/21/2018 8:15 AM [employer] Inhaled Oxygen Concentration - - Weight 55.2 kg (121 lb 9.6 oz) 11/21/2018 6:10 AM [employer] Height 172.7 cm (5' 8) 11/18/2018 11:11 AM [employer] Body Mass Index 18.49 11/18/2018 11:11 AM [employer] documented in this encounter Discharge Summaries Mariano Benjamin MD - 11/21/2018 10:11 AM CST [facility] Discharge Summary Name: Hay Gutierrez Date of : 1960 Age: [age] year old Date of Discharge: 11/21/2018 11:25 AM Date of Admission: 11/18/2018 Primary Care Provider: Sammie Salguero Discharge Physician: Mariano Benjamin MD Discharging Service: Hospitalist Discharge Diagnoses: Acute pancreatitis Bronchitis COPD Severe malnutrition Acute hyponatremia Hypokalemia Unsteady gait Alcohol abuse History CVA HTN Tobacco dependence Hospital Course: Summary of Stay: Hay Gutierrez is a 58 year old male with history of alcohol abuse, pancreatitis, ongoing tobacco dependence, COPD, HTN, and CVA with some residual right-sided deficits who was admitted on 11/18/2018 with abdominal pain and elevated lipase to 6000 consistent with acute pancreatitis. Started on IV fluids and oral and IV pain medication. Mild elevation in LFTs. Ultrasound of the abdomen showing slightly thickened gallbladder wall, but no cholelithiasis. Cannot rule out cholecystitis,however afebrile leukocytosis resolved without intervention. Showing some new tremor, possible withdrawal although denies alcohol use in the past 3 months. Overall deconditioned with gait instability so consulted PT. They recommended he use a walker. He declined any outpatient therapy. He says he has a walker at home. Dietitian consulted for poor oral intake and malnutrition. Hyponatremia and hypokalemia improved with IV fluids and replacement. Abdominal pain resolved and able to advance to regular diet. He requested medication for anxiety. Will trial hydroxyzine as needed. ?? Problem List/Assessment and Plan: Acute pancreatitis: Numerous bouts of pancreatitis in the past likely alcohol related. Again having some right upper quadrant abdominal pain for the past few days. Poor oral intake. Lipase elevated at 6000. He denies any alcohol use for 3 weeks, unclear if this is accurate as he showing signs of withdrawal now. Slight elevation in ALT and AST, bilirubin not elevated. Ultrasound showing some gallbladder wall thickening and small amount of fluid but no cholelithiasis. CBD dilated at 9 mm, there is no obvious stone. Labs improving with IV fluids and conservative management. Although cannot rule out gallstone pancreatitis based on current evaluation, much more suspect related to alcohol. Leukocytosis also resolved without intervention, so cholecystitis seems less likely. -The pain resolved with conservative management. Tolerating regular diet. Advised to avoid alcohol moving forward. ?? Bronchitis: Productive cough of yellow sputum for the past 1-2 weeks. Ongoing tobacco dependence. Afebrile. No infiltrate on x-ray to suspect pneumonia. Rhonchi cleared after a deep cough and lungs otherwise clear. -weaned off oxygen -No antibiotics necessary ?? Severe malnutrition, acute hyponatremia, hypokalemia: evidence for fat and muscle loss with poor po intake. Initial sodium 126 here. 2 weeks of poor p.o. Intake. Hyponatremia slowly improving with IV fluids. Potassium low at 3.3. -Dietitian consult -Potassium replaced per protocol ?? Unsteady gait: PT consulted. Recommended walker and home exercise program. He says he already has a walker. He declined any outpatient therapy. ?? Alcohol abuse: Numerous bouts of pancreatitis in the past. Reports sobriety for the past 3 weeks. Unclear if accurate because he is now becoming more tremulous which may be from withdrawal. This along with recurrent pancreatitis with suggest recent alcohol use. ?? COPD, tobacco dependence: Continues to smoke 1 pack/day. No wheezing on exam. Weaned off oxygen. ?? History CVA: Some residual right-sided weakness. Resume home aspirin. ?? HTN: Resume his previous atenolol. Hold lisinopril for hypovolemia. Anxiety: He requested medication for anxiety. Will trial hydroxyzine as needed. Informed of possiblesedation side effect. If effective he will follow-up with primary care doctor for this. Discharge Disposition: Discharged to home Allergies: No Known Allergies Discharge Medications: Current Discharge Medication List START taking these medications Details hydrOXYzine (ATARAX) 25 MG tablet Take 1 tablet (25 mg) by mouth 3 times daily as needed for anxiety Qty: 30 tablet, Refills: 0 Comments: [phone]. Associated Diagnoses: Anxiety CONTINUE these medications which have NOT CHANGED Details ASPIRIN EC PO Take 325 mg by mouth daily ATENOLOL PO Take 25 mg by mouth daily (with dinner) fluticasone - vilanterol (BREO ELLIPTA) 100-25 MCG/INH oral inhaler Inhale 1 puff into the lungs daily LISINOPRIL PO Take 20 mg by mouth daily (with dinner) umeclidinium bromide (INCRUSE ELLIPTA) 62.5 MCG/INH inhalation capsule Inhale 62.5 mcg into the lungs daily Cholecalciferol (VITAMIN D3 PO) Take 1,000 Units by mouth daily folic acid (FOLVITE) 1 MG tablet Take 1 tablet (1 mg) by mouth daily Qty: 30 tablet, Refills: 0 Associated Diagnoses: Alcohol abuse multivitamin, therapeutic with minerals (THERA-VIT-M) TABS tablet Take 1 tablet by mouth daily Qty: 30 each, Refills: 1 Associated Diagnoses: Alcohol abuse Condition on Discharge: Discharge condition: Stable Discharge vitals: Blood pressure (!) 165/104, pulse 82, temperature 98.4 ??F (36.9 ??C), temperaturesource Oral, resp. rate 18, height 1.727 m (5' 8), weight 55.2 kg (121 lb 9.6 oz), SpO2 97 %. Code status on discharge: Full Code History of Illness: See detailed admission note for full details. Physical Exam: Blood pressure (!) 165/104, pulse 82, temperature 98.4 ??F (36.9 ??C), temperature source Oral, resp. rate 18, height 1.727 m (5' 8), weight 55.2 kg (121 lb 9.6 oz), SpO2 97 %. Wt Readings from Last 1 Encounters: 11/21/18 55.2 kg (121 lb 9.6 oz) Constitutional: Awake, NAD Eyes: sclera white HEENT: MMM Respiratory: no respiratory distress, lungs cta bilaterally, no crackles or wheeze Cardiovascular: RRR. No murmur GI: non-tender to palpation, not distended, bowel sounds present Skin: no rash or lesions, acyanotic Musculoskeletal/extremities: atraumatic, no major deformities. No edema Neurologic: A&O, speech clear, tremor resolved Psychiatric: calm, cooperative, normal affect Procedures other than Imaging: None Imaging: Results for orders placed or performed during the hospital encounter of 11/18/18 US Abdomen Limited (RUQ) Narrative ULTRASOUND ABDOMEN LIMITED 11/18/2018 3:29 PM HISTORY: 58-year-old patient with right upper quadrant pain. COMPARISON: August 25, 2016. FINDINGS: The visualized pancreas is unremarkable. Coarsened echotexture throughout the liver suggestive of diffuse fatty infiltration. Liver size is 13.8 cm. No focal liver lesion. The right kidney is 11.7 cm in length with AP cortical thickness of 1.5 cm. Gallbladder wall thickness appears abnormal measuring up to 1.2 cm with suggestion of gallbladder wall edema. There may be pericholecystic fluid, as well. Positive sonographic Moore's sign. Common bile duct is up to 9 mm with common hepatic duct of 4 mm. Impression IMPRESSION: 1. Thickened gallbladder wall and/or pericholecystic fluid. No cholelithiasis, though with positive sonographic Moore sign, ultrasound findings concerning for cholecystitis. 2. Common bile duct is slightly dilated measuring up to 9 mm, though intrahepatic common hepatic duct is nondilated. 3. Diffuse fatty infiltration throughout the liver. BRYANT MISTRY MD Chest XR, PA & LAT Narrative CHEST TWO VIEWS 11/18/2018 3:30 PM HISTORY: 58-year-old patient with history of cough, shortness of breath and smoking. Impression IMPRESSION: Since September 04, 2016, heart size remains normal. Scattered linear opacities likely scar formation. No pleural effusion, pneumothorax, or abnormal area of consolidation. BRYANT MISTRY MD Consultations: No consultations were requested during this admission. Recent Lab Results: Recent Labs Lab 11/21/18 0811/20/18 0731 11/19/18 0648 WBC 8.9 10.3 11.0 HGB 9.6* 9.9* 11.1* HCT 29.0* 29.6* 32.5* MCV 109* 107* 106* PLT 338 327 354 Recent Labs Lab 11/21/18 0821 11/20/18 0731 11/19/18 1445 11/19/18 0648 11/18/18 1245 NA 134 133 -- 128* < > 126* POTASSIUM 3.4 3.8 4.0 3.3* -- 3.7 CHLORIDE 101 100 -- 93* -- 86* CO2 28 28 -- 31 -- 31 ANIONGAP 5 5 -- 4 -- 9 GLC 86 73 -- 84 -- 107* BUN 4* 7 -- 19 -- 32* CR 0.56* 0.58* -- 0.65* -- 0.93 GFRESTIMATED >90 >90 -- >90 -- 89 GFRESTBLACK >90 >90 -- >90 -- >90 TRAY 7.7* 7.7* -- 8.1* -- 9.6 PROTTOTAL -- 4.9* -- 5.4* -- 7.9 ALBUMIN -- 2.0* -- 2.3* -- 3.3* BILITOTAL -- 0.3 -- 0.6 -- 0.5 ALKPHOS -- 121 -- 158* -- 318* AST -- 24 -- 27 -- 69* ALT -- 37 -- 52 -- 108* < > = values in this interval not displayed. No results for input(s): LACT in the last 168 hours. Recent Labs Lab 11/21/18 0811/20/18 0731 11/19/18 0648 LIPASE 636* 1,356* 2,529* No results for input(s): TROPONIN, TROPI, TROPR in the last 168 hours. Invalid input(s): TROP, TROPONINIES No results for input(s): COLOR, APPEARANCE, URINEGLC, URINEBILI, URINEKETONE, SG, UBLD, URINEPH, PROTEIN, UROBILINOGEN, NITRITE, LEUKEST, RBCU, WBCU in the last 168 hours. Pending Results: Unresulted Labs Ordered in the Past 30 Days of this Admission No orders found from 09/19/2018 to 11/19/2018. These results will be followed up by patient's primary care provider. Discharge Instructions and Follow-Up: Discharge Procedure Orders Reason for your hospital stay Order Comments: You were hospitalized for acute pancreatitis which has improved with bowel rest. Recommend avoiding all alcohol moving forward. Also recommend stopping smoking completely. You have bronchitis now that should improve in the next couple of weeks if you can avoid all smoking and smoke exposure in the home. A walker has been recommended by PT to prevent falls until your balance is ipmroved. I have prescribed a trial of hydroxyzine as needed for anxiety per your request. This can cause some sedation. If this is helpful please see your primary care doctor for refills moving forward. Follow-up and recommended labs and tests Order Comments: Follow up with primary care provider, Sammie [facility], as needed for anxiety and tobacco cessation. Activity Order Comments: Your activity upon discharge: activity as tolerated Order Specific Question Answer Comments Is discharge order? Yes Full Code Order Specific Question Answer Comments Code status determined by: Discussion with patient/legal decision maker Diet Order Comments: Follow this diet upon discharge: Orders Placed This Encounter Snacks/Supplements Adult: Boost Plus; Between Meals Regular Diet Adult Order Specific Question Answer Comments Is discharge order? Yes IMariano, personally saw the patient today and spent greater than 30 minutes discharging this patient. Mariano Benjamin MD [employer] documented in this encounter Medications at Time of Discharge Medication Sig Dispensed Refills Start Date End Date aspirin (ASA) 325 MG EC Take 325 mg by mouth 0 tablet daily atenolol (TENORMIN) 25 MG Take 25 mg by mouth 0 tablet daily (with dinner) lisinopril (ZESTRIL) 20 Take 20 mg by mouth 0 MG tablet daily (with dinner) hydrOXYzine (ATARAX) 25 Take 1 tablet (25 30 tablet 0 11/2112/01/2018 MG tabletIndications: mg) by mouth 3 times Anxiety daily as needed for anxiety fluticasone - vilanterol Inhale 1 puff into 0 10/26/2021 (BREO ELLIPTA) 100-25 the lungs daily MCG/INH oral inhaler folic acid (FOLVITE) 1 MG Take 1 tablet (1 mg) 30 tablet 0 04/02/2018 04/16/2020 tabletIndications: by mouth daily Alcohol abuse multivitamin, therapeutic Take 1 tablet by 30 each 1 03/1904/16/2020 with minerals mouth daily (THERA-VIT-M) TABS tabletIndications: Alcohol abuse umeclidinium bromide Inhale 62.5 mcg into 0 10/26/2021 (INCRUSE ELLIPTA) 62.5 the lungs daily MCG/INH inhalation capsule Vitamin D3 (VITAMIN D3) Take 1,000 Units by 0 04/16/2020 25 mcg (1000 units) mouth daily tablet documented as of this encounter Progress Notes Marcia Unger RN - 11/21/2018 11:25 AM CST Transition Communication Hand-off for Care Transitions to Next Level of Care Provider Name: Hay Gutierrez : 1960 Primary Care Provider: Sammie [facility] Primary Clinic: [address] [place], [place] [address] [address] Reason for Hospitalization: Hyponatremia [E87.1] Other acute pancreatitis, unspecified complication status [K85.80] Admit Date/Time: 11/18/2018 11:30 AM Discharge Date: 11/21/17 Payor Source: Payor: MEDICARE / Plan: MEDICARE / Product Type: Medicare / Readmission Assessment Measure (BRIAN) Risk Score/category: AVERAGE Reason for Communication Hand-off Referral: Difficulty understanding plan of care Discharge Plan: Concern for non-adherence with plan of care: YES Discharge Needs Assessment: Needs Most Recent Value Equipment Currently Used at Home cane, straight Already enrolled in Tele-monitoring program and name of program: na Follow-up specialty is recommended: No Follow-up plan: No future appointments. Any outstanding tests or procedures: Reason for your hospital stay You were hospitalized for acute pancreatitis which has improved with bowel rest. ??Recommend avoiding all alcohol moving forward. ??Also recommend stopping smoking completely. ??You have bronchitis nowthat should improve in the next couple of weeks if you can avoid all smoking and smoke exposure in the home. ??A walker has been recommended by PT to prevent falls until your balance is ipmroved. ??I have prescribed a trial of hydroxyzine as needed for anxiety per your request. ??This can cause some sedation. ??If this is helpful please see your primary care doctor for refills moving forward Follow-up and recommended labs and tests Follow up with primary care provider, Sammie [facility], as needed for anxiety and tobacco cessation. [place] Recommendations: MOD RISK. Pt admitted with Pancreatitis . HX of ETOH use. Also hx of COPD-stlilsmokes 1 PPD. CVA Hx. Marcia Unger AVS/Discharge Summary is the source of truth; this is a helpful guide for improved communication of patient story [employer] Víctor Marc, PT - 11/20/2018 3:00 PM CST 11/20/18 1430 Quick Adds Type of Visit Initial PT Evaluation Living Environment Lives With spouse;child(allyson), adult Living Arrangements house Home Accessibility stairs to enter home Living Environment Comment Rambler style home, 3 steps to enter with railing. Spouse works multimedia engineer, adult sons. Self-Care Usual Activity Tolerance moderate Current Activity Tolerance moderate Equipment Currently Used at Home cane, straight Activity/Exercise/Self-Care Comment pt functions independently at baseline, uses SEC for balance. Functional Level Prior Ambulation 1-->assistive equipment Transferring 1-->assistive equipment Toileting 0-->independent Bathing 0-->independent Communication 0-->understands/communicates without difficulty Swallowing 0-->swallows foods/liquids without difficulty Cognition 0 - no cognition issues reported Fall history within last six months no ((+) fall hx > 6 months ago) Which of the above functional risks had a recent onset or change? ambulation;transferring General Information Onset of Illness/Injury or Date of Surgery - Date 11/19/18 Referring Physician Mariano Benjamin MD Patient/Family Goals Statement dc home Pertinent History of Current Problem (include personal factors and/or comorbidities that impact the POC) Hay Gutierrez is a 58 year old male with history of alcohol abuse, pancreatitis, ongoing tobacco dependence, COPD, HTN, and CVA with some residual right-sided deficits who was admitted on 11/18/2018 with abdominal pain and elevated lipase to 6000 consistent with acute pancreatitis. Precautions/Limitations fall precautions General Observations pt awake and alert, on RA, SaO2 95%. Cognitive Status Examination Orientation orientation to person, place and time Pain Assessment Patient Currently in Pain Yes, see Vital Sign flowsheet (mild abdominal pain/discomfort) Integumentary/Edema Integumentary/Edema Comments very mild edema B ankles Posture Posture Forward head position;Protracted shoulders Posture Comments guarded UT otoniel Range of Motion (ROM) ROM Comment WFL BLEs and BUEs Strength Strength Comments Generalized proximal hip weakness noted, B hip flexion in sitting 4-/5, 5/5 distally. Fatigue reported with activity. Bed Mobility Bed Mobility Comments SBA with use of bed rail. Transfer Skills Transfer Comments CGA sit <> stand transfers with FWW support, mild unsteadiness and posteriorLOB. Gait Gait Comments Amb iwth FWW and CGA/SBA, WBOS, decreased knee flexion/heel strike on RLE, pt reports this chronically after CVA. Able to amb iwth SEC CGA/SBA, mild unsteadiness noted. Balance Balance Comments Impaired standing balance and gait stability, pt reports some deficits following CVA. NBOS EO x 20'' steady, EC x 4'' with LOB. Needing FWW/SEC for stability with gait skills. Sensory Examination Sensory Perception Comments chronic numbness in RUE secondary to CVA Coordination Coordination Comments impaired coordination secondary to CVA R extremities, mild tremors noted in all extremities Muscle Tone Muscle Tone no deficits were identified General Therapy Interventions Planned Therapy Interventions balance training;gait training;neuromuscular re-education;strengthening;transfer training;risk factor education;home program guidelines;progressive activity/exercise Clinical Impression Criteria for Skilled Therapeutic Intervention yes, treatment indicated PT Diagnosis Impaired gait stability and deconditioning Influenced by the following impairments Deconditioning/weakness, impaired balance, tremors, impairedrespiratory status Functional limitations due to impairments Impaired safety with functional transfers and gait, stairs, impaired amb tolerance Clinical Presentation Stable/Uncomplicated Clinical Presentation Rationale improving medical status, mod I PLOF, PMH Clinical Decision Making (Complexity) Low complexity Therapy Frequency` 5 times/week Predicted Duration of Therapy Intervention (days/wks) 2-3 days Anticipated Equipment Needs at Discharge (owns FWW and SEC) Anticipated Discharge Disposition Home (with continued HEP, pt not interested in OP PT) Risk & Benefits of therapy have been explained Yes Patient, Family & other staff in agreement with plan of care Yes [facility] AM-PAC TM 6 Clicks ?? 2016, Trustees of [facility], under license to [employer]. All rights reserved. 6 Clicks Short Forms Basic Mobility Inpatient Short Form [facility] AM-PAC??? 6 Clicks V.2 Basic Mobility Inpatient Short Form 1. Turning from your back to your side while in a flat bed without using bedrails? 4 - None 2. Moving from lying on your back to sitting on the side of a flat bed without using bedrails? 3 - ALittle 3. Moving to and from a bed [...] scores equate to lower levels of function) 19 Total Evaluation Time Total Evaluation Time (Minutes) 15 [employer] Mariano Benjamin MD - 11/20/2018 12:25 PM CST [facility] Hospitalist Progress Note Mariano Benjamin MD 11/20/18 Reason for Stay (Diagnosis): Pancreatitis Assessment and Plan: Summary of Stay: Hay Gutierrez is a 58 year old male with history of alcohol abuse, pancreatitis, ongoing tobacco dependence, COPD, HTN, and CVA with some residual right-sided deficits who was admitted on 11/18/2018 with abdominal pain and elevated lipase to 6000 consistent with acute pancreatitis. Started on IV fluids and oral and IV pain medication. Mild elevation in LFTs. Ultrasound of the abdomen showing slightly thickened gallbladder wall, but no cholelithiasis. Cannot rule out cholecystitis,however afebrile leukocytosis resolved without intervention. Showing some new tremor, possible withdrawal although denies alcohol use in the past 3 months. Overall deconditioned with gait instability so will consult PT. Dietitian consulted for poor oral intake. Hyponatremia and hypokalemia improving with IV fluids. Abdominal pain improving so advancing diet. Problem List/Assessment and Plan: Acute pancreatitis: Numerous bouts of pancreatitis in the past likely alcohol related. Again having some right upper quadrant abdominal pain for the past few days. Poor oral intake. Lipase elevated at 6000. He denies any alcohol use for 3 weeks, unclear if this is accurate as he showing signs of withdrawal now. Slight elevation in ALT and AST, bilirubin not elevated. Ultrasound showing some gallbladder wall thickening and small amount of fluid but no cholelithiasis. CBD dilated at 9 mm, there is no obvious stone. Labs improving with IV fluids and conservative management. Although cannot rule out gallstone pancreatitis based on current evaluation, much more suspect related to alcohol. Leukocytosis also resolved without intervention, so cholecystitis seems less likely. -IV fluids with LR at 100 ml/hr -P.o. oxycodone and IV Dilaudid as needed, wean as able -No pain meds since yesterday evening and abdominal pain better so advanced to full liquid diet thismorning then regular diet for lunch as tolerated -If not improving will consider further imaging with CT scan to evaluate gallbladder. Bronchitis: Productive cough of yellow sputum for the past 1-2 weeks. Ongoing tobacco dependence. Afebrile. No infiltrate on x-ray to suspect pneumonia. Rhonchi cleared after a deep cough and lungs otherwise clear. -Wean oxygen -Hold on any empiric antibiotics Severe malnutrition, acute hyponatremia, hypokalemia: evidence for fat and muscle loss with poor po intake. Initial sodium 126 here. 2 weeks of poor p.o. Intake. Hyponatremia slowly improving with IV fluids. Potassium low at 3.3. -Continue LR at 100 ml/hr -Dietitian consult -Potassium replacement protocol Unsteady gait: PT consult. Alcohol abuse: Numerous bouts of pancreatitis in the past. Reports sobriety for the past 3 weeks. Unclear if accurate because he is now becoming more tremulous which may be from withdrawal. This along with recurrent pancreatitis with suggest recent alcohol use. COPD, tobacco dependence: Continues to smoke 1 pack/day. No wheezing on exam. -Wean oxygen off -Nicotine patch History CVA: Some residual right-sided weakness. Resume home aspirin. HTN: Resume his previous atenolol. Hold lisinopril for hypovolemia. DVT Prophylaxis: Pneumatic Compression Devices Code Status: Full Code FEN: Advance to regular diet today, LR at 100 ml/hr Discharge Dispo: Home likely, PT consult for unsteadiness on feet Estimated Disch Date / # of Days until Disch: Tomorrow if abdominal pain better not needing pain medications Interval History (Subjective): Continues to have some cough productive of yellow sputum, overall improving. No fevers or chills. Abdominal pain improving and no opiates since yesterday evening. No nausea or vomiting. Wants to advance diet. Physical Exam: Last Vital Signs: BP (!) 156/94 (BP Location: Right arm) Pulse 99 Temp 98.3 ??F (36.8 ??C) (Oral) Resp 20 Ht 1.727 m (5' 8) Wt 47.7 kg (105 lb 3.2 oz) SpO2 95% BMI 16.00 kg/m?? Intake/Output Summary (Last 24 hours) at 11/20/2018 1226 Last data filed at 11/20/2018 1004 Gross per 24 hour Intake 2782 ml Output -- Net 2782 ml Constitutional: Awake, NAD Eyes: sclera white HEENT: MMM Respiratory: No crackles or wheeze Cardiovascular: RRR. No murmur GI: Very mild right upper quadrant tenderness to palpation without guarding, not distended, bowel sounds present Skin: no rash Musculoskeletal/extremities: No edema Neurologic: A&O, slight tremor Psychiatric: calm, cooperative Medications: All current medications were reviewed with changes reflected in problem list. Data: All new lab and imaging data was reviewed. Labs: Recent Labs Lab 11/20/18 0731 11/19/18 0648 11/18/18 1245 WBC 10.3 11.0 15.9* HGB 9.9* 11.1* 15.1 HCT 29.6* 32.5* 43.8 MCV 107* 106* 106* PLT 327 354 449 Recent Labs Lab 11/20/18 0731 11/19/18 1445 11/19/18 0648 11/18/18 1610 11/18/18 1245 NA 133 -- 128* 129* 126* POTASSIUM 3.8 4.0 3.3* -- 3.7 CHLORIDE 100 -- 93* -- 86* CO2 28 -- 31 -- 31 ANIONGAP 5 -- 4 -- 9 GLC 73 -- 84 -- 107* BUN 7 -- 19 -- 32* CR 0.58* -- 0.65* -- 0.93 GFRESTIMATED >90 -- >90 -- 89 GFRESTBLACK >90 -- >90 -- >90 TRAY 7.7* -- 8.1* -- 9.6 PROTTOTAL 4.9* -- 5.4* -- 7.9 ALBUMIN 2.0* -- 2.3* -- 3.3* BILITOTAL 0.3 -- 0.6 -- 0.5 ALKPHOS 121 -- 158* -- 318* AST 24 -- 27 -- 69* ALT 37 -- 52 -- 108* Recent Labs Lab 11/20/18 0731 11/19/18 0648 11/18/18 1245 LIPASE 1,356* 2,529* 6,466* Imaging: None today Mariano Benjamin MD [employer] Mariano Benjamin MD - 11/19/2018 11:19 AM CST [facility] Hospitalist Progress Note Mariano Benjamin MD 11/19/18 Reason for Stay (Diagnosis): Pancreatitis Assessment and Plan: Summary of Stay: Hay Gutierrez is a 58 year old male with history of alcohol abuse, pancreatitis, ongoing tobacco dependence, COPD, HTN, and CVA with some residual right-sided deficits who was admitted on 11/18/2018 with abdominal pain and elevated lipase to 6000 consistent with acute pancreatitis. Started on IV fluids and oral and IV pain medication. Mild elevation in LFTs. Ultrasound of the abdomen showing slightly thickened gallbladder wall, but no cholelithiasis. Cannot rule out cholecystitis,however afebrile leukocytosis resolved without intervention. Showing some new tremor, possible withdrawal although denies alcohol use in the past 3 months. Overall deconditioned with gait instability so will consult PT. Dietitian consulted for poor oral intake. Hyponatremia and hypokalemia improving with IV fluids. Problem List/Assessment and Plan: Acute pancreatitis: Numerous bouts of pancreatitis in the past likely alcohol related. Again having some right upper quadrant abdominal pain for the past few days. Poor oral intake. Lipase elevated at 6000. He denies any alcohol use for 3 weeks, unclear if this is accurate as he showing signs of withdrawal now. Slight elevation in ALT and AST, bilirubin not elevated. Ultrasound showing some gallbladder wall thickening and small amount of fluid but no cholelithiasis. CBD dilated at 9 mm, there is no obvious stone. Labs improving with IV fluids and conservative management. Although cannot rule out gallstone pancreatitis based on current evaluation, much more suspect related to alcohol. Leukocytosis also resolved without intervention, so cholecystitis seems less likely. -Continue clear liquid diet until abdominal pain improving -IV fluids with LR at 100 ml/hr -P.o. oxycodone and IV Dilaudid as needed, wean as able -If not improving will consider further imaging with CT scan to evaluate gallbladder. Bronchitis: Productive cough of yellow sputum for the past 1-2 weeks. Ongoing tobacco dependence. Afebrile. No infiltrate on x-ray to suspect pneumonia. Rhonchi cleared after a deep cough and lungs otherwise clear. -Wean oxygen -Hold on any empiric antibiotics Recent severe malnutrition with severe hyponatremia, hypokalemia: Initial sodium 126-year. 2 weeks of poor p.o. Intake. Hyponatremia slowly improving with IV fluids. Potassium low at 3.3. -Continue LR but at 100 ml/hr -Dietitian consult -Potassium replacement protocol Unsteady gait: PT consult. Alcohol abuse: Numerous bouts of pancreatitis in the past. Reports sobriety for the past 3 weeks. Unclear if accurate because he is now becoming more tremulous which may be from withdrawal. This along with recurrent pancreatitis with suggest recent alcohol use. COPD, tobacco dependence: Continues to smoke 1 pack/day. No wheezing on exam. -Wean oxygen off -Nicotine patch History CVA: Some residual right-sided weakness. Resume home aspirin. HTN: Resume his previous atenolol. Hold lisinopril for hypovolemia. DVT Prophylaxis: Pneumatic Compression Devices Code Status: Full Code FEN: Clear liquid diet until abdominal pain improving, LR at 100 ml/hr Discharge Dispo: Home likely, PT consult for unsteadiness on feet Estimated Disch Date / # of Days until Disch: 2 days pending improvement abdominal pain Interval History (Subjective): Persistent right upper quadrant and epigastric abdominal pain receiving opiates. No nausea or vomiting today. No chest pain or shortness of breath. Persistent reductive cough of yellow sputum. Physical Exam: Last Vital Signs: BP (!) 146/95 (BP Location: Right arm) Pulse 94 Temp 97.8 ??F (36.6 ??C) (Oral) Resp 20 Ht 1.727 m (5' 8) Wt 46.5 kg (102 lb 9.6 oz) SpO2 92% BMI 15.60 kg/m?? Intake/Output Summary (Last 24 hours) at 11/19/2018 1119 Last data filed at 11/19/2018 0900 Gross per 24 hour Intake 3039 ml Output -- Net 3039 ml Constitutional: Awake, NAD Eyes: sclera white HEENT: MMM Respiratory: Initial rhonchi resolved with deep cough. No crackles or wheeze Cardiovascular: RRR. No murmur GI: Mild right upper quadrant tenderness to palpation without guarding, not distended, bowel sounds present Skin: no rash Musculoskeletal/extremities: No edema Neurologic: A&O, mild tremor Psychiatric: calm, cooperative Medications: All current medications were reviewed with changes reflected in problem list. Data: All new lab and imaging data was reviewed. Labs: Recent Labs Lab 11/19/18 0648 11/18/18 1245 WBC 11.0 15.9* HGB 11.1* 15.1 HCT 32.5* 43.8 MCV 106* 106* PLT 354 449 Recent Labs Lab 11/19/18 0648 11/18/18 1610 11/18/18 1245 NA 128* 129* 126* POTASSIUM 3.3* -- 3.7 CHLORIDE 93* -- 86* CO2 -- 31 ANIONGAP 4 -- 9 GLC 84 -- 107* BUN 19 -- 32* CR 0.65* -- 0.93 GFRESTIMATED >90 -- 89 GFRESTBLACK >90 -- >90 TRAY 8.1* -- 9.6 PROTTOTAL 5.4* -- 7.9 ALBUMIN 2.3* -- 3.3* BILITOTAL 0.6 -- 0.5 ALKPHOS 158* -- 318* AST 27 -- 69* ALT 52 -- 108* Recent Labs Lab 11/19/18 0648 11/18/18 1245 LIPASE 2,529* 6,466* Imaging: Recent Results (from the past 24 hour(s)) US Abdomen Limited (RUQ) Narrative ULTRASOUND ABDOMEN LIMITED 11/18/2018 3:29 PM HISTORY: 58-year-old patient with right upper quadrant pain. COMPARISON: August 25, 2016. FINDINGS: The visualized pancreas is unremarkable. Coarsened echotexture throughout the liver suggestive of diffuse fatty infiltration. Liver size is 13.8 cm. No focal liver lesion. The right kidney is 11.7 cm in length with AP cortical thickness of 1.5 cm. Gallbladder wall thickness appears abnormal measuring up to 1.2 cm with suggestion of gallbladder wall edema. There may be pericholecystic fluid, as well. Positive sonographic Moore's sign. Common bile duct is up to 9 mm with common hepatic duct of 4 mm. Impression IMPRESSION: 1. Thickened gallbladder wall and/or pericholecystic fluid. No cholelithiasis, though with positive sonographic Moore sign, ultrasound findings concerning for cholecystitis. 2. Common bile duct is slightly dilated measuring up to 9 mm, though intrahepatic common hepatic duct is nondilated. 3. Diffuse fatty infiltration throughout the liver. BRYANT MISTRY MD Chest XR, PA & LAT Narrative CHEST TWO VIEWS 11/18/2018 3:30 PM HISTORY: 58-year-old patient with history of cough, shortness of breath and smoking. Impression IMPRESSION: Since September 04, 2016, heart size remains normal. Scattered linear opacities likely scar formation. No pleural effusion, pneumothorax, or abnormal area of consolidation. MD Mariano CLEMENTS MD [employer] Jeanie Arriaga, RT - 11/18/2018 5:14 PM CST [facility]AT Date: 11/18/18 Admission Dx: Pancreatitis Pulmonary History: COPD hx, current smoker of 1 ppd Home Nebulizer/MDI Use: Breo Ellipta every day, Incruse Ellipta every day Home Oxygen: None Acuity Level (RCAT flow sheet): 3 Aerosol Therapy initiated: Duoneb QID, Duoneb Q4 prn, Breo Ellipta QD Pulmonary Hygiene initiated: Coughing techniques Volume Expansion initiated: Incentive Spirometry Current Oxygen Requirements: Room air Current SpO2: 92% Re-evaluation date: 11/21/18 Patient Education: Discussed use and benefits of respiratory medications. See RT Assessments flow sheet for patient assessment scoring and Acuity Level Details. [employer] documented in this encounter H&P Notes Andrews Stanley MD - 11/18/2018 1:39 PM CST [facility] Hospitalist Admission Note Name: Hay Gutierrez Date of : 1960 Age: [age] year old Date of admission: 11/18/2018 Primary care provider: Sammie Salguero Chief Complaint: Pancreatitis Hay Gutierrez is a 58 year old male with PMH including alcohol abuse, COPD, CVA with some residualright-sided weakness, hypertension and pancreatitis as well as tobacco abuse who presents with abdominal pain in the setting of two weeks of anorexia, malaise and intermittent productive cough. Yesterday he had a good appetite for dinner for the first time in about 2 weeks but then upon waking this morning developed constant right upper quadrant abdominal pain with chills which he describes as similar to prior bouts of pancreatitis. He admits that typically his bouts of pancreatitis have followed drinking binges in the past but he states now he is not had any alcohol in about 3 weeks. Here in the emergency room his sodium was 126. Lipase was elevated at 6466. Alkaline phosphatase [id number] with ALT of 108 and AST of 69. White blood count was also elevated at 15.9. He is being admitted for acute pancreatitis and severe hyponatremia. He is also undergoing abdominalultrasound to evaluate for biliary obstruction as his current bout may not be related to alcohol. Assessment and Plan: 1. Acute pancreatitis: as above. --Admit inpatient status --Lactated Ringer's at 200 cc/h --Trend LFTs and lipase --OK for sips of clears, revert to NPO if this makes his pain worse. --currently requiring narcotic medications for pain control though much more comfortable after receiving these in the ER. --Check right upper quadrant ultrasound to evaluate for biliary obstruction --If he is not clinically improving and pending ultrasound findings we may need to consider CT scan of his abdomen for further evaluation for cyst/fluid collection etc given that he has had numerous bouts of pancreatitis but will defer that for now. 2. Recent severe malnutrition with severe hyponatremia: Sodium issues 126 and he describes essentially 2 weeks of very poor oral intake, even being unable to drink water for for 5 days per his report. He recently recovered his appetite over the past 24 hours but now presents with pancreatitis. --Continue IV fluid support, would prefer relatively gradual correction of sodium though need to balance that with the need for volume expansion in the setting of severe dehydration and acute pancreatitis. --Recheck sodium now, if rising quickly may need to consider hypotonic fluids intermittently --Check and replace mag, K and Homer 3. History of COPD, ongoing smoking of 1 pack/day: Describes recent productive cough. I doubt he is in a fulminant exacerbation but does seem to have some faint end expiratory wheezing and would benefit from nebs. Will also order nicotine replacement while here. 4. History of CVA with some residual right-sided weakness: Resume home aspirin and blood pressure regimen 5. History of alcohol abuse with numerous prior bouts of pancreatitis: Has recently been sober with his last drink being about 3 weeks ago per his report. 6. Hypertension: We will hold home lisinopril given dehydration for now, consider restarting in the coming days. We will restart his home atenolol as tolerated as well. 7. Leukocytosis: Most likely a stress response from pancreatitis but given his productive cough we will also check a chest x-ray to evaluate for community- acquired pneumonia. --Chest x-ray --Recheck white blood count DVT Prophylaxis: Pneumatic Compression Devices Code Status: Full Code Discharge Dispo: admit to inpatient status History of Present Illness: Hay Gutierrez is a 58 year old male with PMH including alcohol abuse, COPD, CVA with some residualright-sided weakness, hypertension and pancreatitis as well as tobacco abuse who presents with abdominal pain. He is felt somewhat ill over the past 2 weeks with flulike symptoms and poor appetite and oral intake. He has had some nausea and vomiting which actually resolved a few days ago. Yesterday hehad a good appetite for dinner for the first time in about 2 weeks but then upon waking this morningdeveloped constant right upper quadrant abdominal pain with chills. He describes his pain is similarto prior bouts of pancreatitis. Typically has bouts of pancreatitis have followed drinking binges inthe past but he states now he is not had any alcohol in about 3 weeks. Here in the emergency room his sodium was 126. Lipase was elevated at 6466. Alkaline phosphatase [id number] with ALT of 108 and AST of 69. White blood count was also elevated at 15.9 Past Medical History: Past Medical History: Diagnosis Date ??? Alcohol abuse ??? COPD (chronic obstructive pulmonary disease) (H) ??? 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 HTN (hypertension) ??? Pancreatitis ??? Sciatic nerve pain Past Surgical History: No past surgical history on file. Social History: Social History Tobacco Use ??? Smoking status: Current Every Day Smoker Packs/day: 1.00 Years: 28.00 Pack years: 28.00 Substance Use Topics ??? Alcohol use: Yes Alcohol/week: 1.0 oz Types: 2 Cans of beer per week Social History Social History Narrative ??? Not on file Family History: Family History Problem Relation Age of Onset ??? Cancer Father ??? Cancer Sister Allergies: No Known Allergies Medications: No current facility-administered medications on file prior to encounter. Current Outpatient Medications on File Prior to Encounter: ASPIRIN EC PO Take 325 mg by mouth daily ATENOLOL PO Take 25 mg by mouth daily (with dinner) Cholecalciferol (VITAMIN D3 PO) Take 1,000 Units by mouth daily fluticasone - vilanterol (BREO ELLIPTA) 100-25 MCG/INH oral inhaler Inhale 1 puff into the lungs daily folic acid (FOLVITE) 1 MG tablet Take 1 tablet (1 mg) by mouth daily LISINOPRIL PO Take 20 mg by mouth daily (with dinner) multivitamin, therapeutic with minerals (THERA-VIT-M) TABS tablet Take 1 tablet by mouth daily umeclidinium bromide (INCRUSE ELLIPTA) 62.5 MCG/INH inhalation capsule Inhale 62.5 mcg into the lungs daily Review of Systems: A Comprehensive greater than 10 system review of systems was carried out. Pertinent positives and negatives are noted above. Otherwise negative for contributory information. Physical Exam: Blood pressure (!) 122/92, pulse 114, temperature 97.1 ??F (36.2 ??C), temperature source Temporal, resp. rate 18, height 1.727 m (5' 8), SpO2 94 %. Wt Readings from Last 1 Encounters: 03/27/18 54.1 kg (119 lb 3.2 oz) Exam: General: Alert, awake, no acute distress. Thin man. HEENT: NC/AT, eyes anicteric, external occular movements intact, face symmetric. Dentition WNL, MM moist. Cardiac: RRR, S1, S2. No murmurs appreciated. Pulmonary: Normal chest rise, normal work of breathing. End exp wheezes, productive cough noted. Abdomen: Mild to moderately tender to palpation in the right upper quadrant. Otherwise soft, non-tender, non-distended. Bowel Sounds Present. No guarding. Extremities: no deformities. Warm, well perfused. Skin: no rashes or lesions noted. Warm and Dry. Neuro: No focal deficits noted. Speech clear. Coordination and strength grossly normal. Psych: Appropriate affect. Data: EKG: None. Imaging: No results found for this or any previous visit (from the past 48 hour(s)). Labs: Recent Labs Lab 11/18/18 1245 WBC 15.9* HGB 15.1 HCT 43.8 MCV 106* PLT 449 Recent Labs Lab 11/18/18 1245 NA 126* POTASSIUM 3.7 CHLORIDE 86* CO2 31 ANIONGAP 9 GLC 107* BUN 32* CR 0.93 GFRESTIMATED 89 GFRESTBLACK >90 TRAY 9.6 PROTTOTAL 7.9 ALBUMIN 3.3* BILITOTAL 0.5 ALKPHOS 318* AST 69* ALT 108* Recent Labs Lab 11/18/18 1245 LIPASE 6,466* Delano Stanley MD Hospitalist [facility] [employer] documented in this encounter Consult Notes Noemí Taveras RD, LD - 11/20/2018 1:09 PM CSTAssociated Order(s): NUTRITION SERVICES ADULT IP CONSULT CLINICAL NUTRITION SERVICES - ASSESSMENT NOTE Recommendations Ordered by Registered Dietitian (RD): Medical Food Supplement: Boost Plus BID, between meals Malnutrition: % Weight Loss: > 2% in 1 week (severe malnutrition) % Intake: </= 50% for >/= 5 days (severe malnutrition) Subcutaneous Fat Loss: Orbital region mild depletion and Upper arm region moderate depletion Muscle Loss: Temporal region mild-moderate depletion and Clavicle bone region moderate-severe depletion Fluid Retention: None noted Malnutrition Diagnosis: Severe malnutrition In Context of: Acute on chronic illness or injury REASON FOR ASSESSMENT Hay Gutierrez is a 58 year old male seen by Registered Dietitian for Admission Nutrition Risk Screen - reduced oral intake over the last month, wt loss of 10lbs or more over the last 2 months and RN Consult - Pt appears malnourished, hx of etoh, prior skin and wound issues NUTRITION HISTORY - Information obtained from Pt -Pt states that he follows a regular diet with no known food allergies -Pt lives with and children. He states that he does all of the grocery shopping and cooking -Pt reports that he typically consumes meals two times per day. Diet recall: Breakfast: eggs (always) curiel or sausage Dinner: Meat loaf, lasagna, spaghetti Ensure once daily Per chart review: Hx off: alcohol abuse, pancreatis, COPD, HTN, CVA and severe malnutrition CURRENT NUTRITION ORDERS Diet Order: Regular (1/2), previously on full liquid diet Current Intake/Tolerance: -Pt states that he is currently getting back his appetite, states that his eyes are bigger than hisstomach. 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 and episodes of nausea and vomiting -Per RN flowsheet, pt consumed 100% of meal ordered -IVF at 100mL/hr -Colace -Thera-Vit-M -Per note 11/18: His past occurrences of pancreatitis were thought to be due to drinking alcohol, but the patient reports he hasn't had a drink in 3 weeks; The patient reports he felt like he hadflu-like symptoms for the past two weeks and has had decreased appetite and intake PHYSICAL FINDINGS Observed Muscle Wasting Subcutaneous fat loss Obtained from Chart/Interdisciplinary Team None noted ANTHROPOMETRICS Height: 5' 8 Weight: 105 lbs 3.2 oz (47.7 kg) Body mass index is 16 kg/m??. Weight Status: Underweight BMI <18.5 IBW: 70 kg % IBW: 68% Weight History: wt loss of 6.4 kg (11.8%) over the last 7 months. 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 Pt reports a UBW of 115lbs Wt Readings from Last 10 Encounters: 11/20/18 47.7 kg (105 lb 3.2 oz) 03/27/18 54.1 kg (119 lb 3.2 oz) 11/09/16 55.1 kg (121 lb 6.4 oz) 09/27/16 53.4 kg (117 lb 12.8 oz) 09/26/16 53.4 kg (117 lb 12.8 oz) 09/21/16 58.1 kg (128 lb) 09/20/16 53.9 kg (118 lb 12.8 oz) 11/05/15 55.2 kg (121 lb 12.8 oz) 04/30/15 57.8 kg (127 lb 6.8 oz) 02/20/12 55.2 kg (121 lb 9.6 oz) LABS Labs reviewed MEDICATIONS Medications reviewed ASSESSED NUTRITION NEEDS PER APPROVED PRACTICE GUIDELINES: Dosing Weight 47.7 kg (actual wt) Estimated Energy Needs: 7987-8047 kcals (30-35 Kcal/Kg) Justification: repletion Estimated Protein Needs: 57- 72 grams protein (1.2-1.5 g pro/Kg) Justification: Repletion and preservation of lean body mass Estimated Fluid Needs: 3025-4591 mL (1 mL/Kcal) Justification: maintenance MALNUTRITION: % Weight Loss: > 2% in 1 week (severe malnutrition) % Intake: </= 50% for >/= 5 days (severe malnutrition) Subcutaneous Fat Loss: Orbital region mild depletion and Upper arm region moderate depletion Muscle Loss: Temporal region mild-moderate depletion and Clavicle bone region moderate-severe depletion Fluid Retention: None noted Malnutrition Diagnosis: Severe malnutrition In Context of: Acute on chronic illness or injury NUTRITION DIAGNOSIS: Inadequate oral intake related to decreased appetite, nausea, vomiting and overall medical status asevidenced by pt repots of not consuming/ being able to take PO intake for about 2 weeks 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 and wt loss of 6.4 kg (11.8%), suspect over the couple of weeks NUTRITION INTERVENTIONS Recommendations / Nutrition Prescription Continue regular diet Oral nutrition supplements BID Implementation Nutrition education: Provided education on protein and oral nutrition supplements Medical Food Supplement: Boost Plus BID, between meals Nutrition Goals Pt to consume at least 75% of meals ordered TID and oral nutrition supplements BID MONITORING AND EVALUATION: Progress towards goals will be monitored and evaluated per protocol and Practice Guidelines Noemí Taveras RD, [place] [employer] Marcia Unger RN - 11/20/2018 11:48 AM CSTAssociated Order(s): INSTRUCTIONAL CONSULTANT IP CONSULT MOD RISK. Pt admitted with Pancreatitis . HX of ETOH use. Also hx of COPD-stlil smokes 1 PPD. CVA Hx. Will monitor for needs. Will give hand off to clinic RN CTS and give hand off to MD. Nelly LOCKHART CTS [id number] [employer] documented in this encounter ED Notes Nanda Preciado RN - 11/18/2018 3:23 PM CST [facility] ED Nurse Handoff Report Hay Gutierrez is a 58 year old male ED Chief complaint: Abdominal Pain . ED Diagnosis: Final diagnoses: Other acute pancreatitis, unspecified complication status Hyponatremia Allergies: No Known Allergies Code Status: Full Code Activity level - Baseline/Home: Independent. Activity Level - Current: Stand with Assist of 2. Lift room needed: No. Bariatric: No Line Cook Needed: No Isolation: No. Infection: Not Applicable. Vital Signs: Vitals: 11/18/18 1420 11/18/18 1421 11/18/18 1430 11/18/18 1500 BP: (!) 150/101 (!) 134/110 Pulse: 96 109 Resp: Temp: TempSrc: SpO2: 99% 100% 99% Height: Cardiac Rhythm: , Pain level: 0-10 Pain Scale: 7 Patient confused: No. Patient Falls Risk: Yes. Elimination Status: Has voided Patient Report - Initial Complaint: abd pain. Focused Assessment: Gastrointestinal - GI WDL: GI symptoms; stool Stool Amount: (WNL) GI Signs/Symptoms: abdominal pain (diffuse) Chest congestion-good amtof mucous- white in color Tests Performed: imaging and labs. Abnormal Results: Labs Ordered and Resulted from Time of ED Arrival Up to the Time of Departure from the ED CBC WITH PLATELETS DIFFERENTIAL - Abnormal; Notable for the following components: Result Value WBC 15.9 (*) RBC Count 4.14 (*) MCV 106 (*) MCH 36.5 (*) Absolute Neutrophil 13.8 (*) All other components within normal limits COMPREHENSIVE METABOLIC PANEL - Abnormal; Notable for the following components: Sodium 126 (*) Chloride 86 (*) Glucose 107 (*) Urea Nitrogen 32 (*) Albumin 3.3 (*) Alkaline Phosphatase 318 (*) ALT 108 (*) AST 69 (*) All other components within normal limits LIPASE - Abnormal; Notable for the following components: Lipase 6,466 (*) All other components within normal limits PERIPHERAL IV CATHETER . Treatments provided: MAR Family Comments: present and supportive OBS brochure/video discussed/provided to patient: N/A ED Medications: Medications HYDROmorphone (PF) (DILAUDID) injection 0.5 mg (0.5 mg Intravenous Given 11/18/18 1459) ondansetron (ZOFRAN) injection 4 mg (4 mg Intravenous Given 11/18/18 1251) sodium chloride 0.9% infusion ( Intravenous New Bag 11/18/18 1250) nicotine Patch in Place (not administered) nicotine patch REMOVAL (not administered) nicotine (NICODERM CQ) 14 MG/24HR 24 hr patch 1 patch (1 patch Transdermal Given 11/18/18 1250) Drips infusing: No For the majority of the shift, the patient's behavior Green. Interventions performed were . Severe Sepsis OR Septic Shock Diagnosis Present: No ED Nurse Name/Phone Number: Melba Rodriguez, 3:23 PM RECEIVING UNIT ED HANDOFF REVIEW Above ED Nurse Handoff Report was reviewed: Yes Reviewed by: Nanda Preciado on November 18, 2018 at 3:35 PM [employer]ION WAREHOUSE SUPERVISOR Melba Rodriguez RN - 11/18/2018 12:45 PM CST Pt O2 Sats @83% on RA. Pt placed on N/C 4 Ltrs to maintain greater than 90%. NSION WAREHOUSE SUPERVISOR Shelby Guzman RN - 11/18/2018 11:12 AM CST ABCs intact. Pt c/o abdominal pain x 3 weeks, worse since last night. Denies n/v/d at present. Denies urinary symptoms. [employer]ION WAREHOUSE SUPERVISOR Bryant Navarrete MD - 11/18/2018 11:06 AM CST History Chief Complaint: Abdominal Pain HPI Hay Gutierrez is a 58 year old male with history of alcoholism and pancreatitis who presents to the emergency department today for evaluation of abdominal pain. The patient reports he felt like he had flu-like symptoms for the past two weeks and has had decreased appetite and intake. He has had inter mittent nausea and vomiting that resolved five days prior. Yesterday he reports he had a good dinner. Waking up this morning he developed constant RUQ abdominal pain with associated chills. Due to these symptoms he presented to the emergency department today. Additionally, he reports this feels like his previous pancreatitis. His past occurrences of pancreatitis were thought to be due to drinking alcohol, but the patient reports he hasn't had a drink in 3 weeks. He rates his pain 8 out of 10. He denies diarrhea, constipation, and blood stool. Allergies: No Known Drug Allergies Medications: ASPIRIN EC PO ATENOLOL PO Cholecalciferol (VITAMIN D3 PO) fluticasone - vilanterol (BREO ELLIPTA) 100-25 MCG/INH oral inhaler folic acid (FOLVITE) 1 MG tablet LISINOPRIL PO multivitamin, therapeutic with minerals (THERA-VIT-M) TABS tablet umeclidinium bromide (INCRUSE ELLIPTA) 62.5 MCG/INH inhalation capsule Past Medical History: Alcohol abuse COPD CVA Hypertension Pancreatitis Sciatic nerve pain Past Surgical History: History reviewed. No pertinent past surgical history. Family History: Cancer Social History: The patient was accompanied to the ED by himself. Smoking Status: Current Every day smoker Alcohol Use: Yes Marital Status: [2] Review of Systems Gastrointestinal: Positive for abdominal pain (RUQ). Negative for blood in stool, constipation and diarrhea. All other systems reviewed and are negative. Physical Exam First Vitals: BP: (!) 122/92 Pulse: 114 Temp: 97.1 ??F (36.2 ??C) Resp: 18 Height: 172.7 cm (5' 8) SpO2: 94 % Physical Exam General: Patient is alert and cooperative. Thin, disheveled, appears uncomfortable. HENT: Normal nose, oropharynx. Dry lips and oral mucosa. Eyes: EOMI. Normal conjunctiva. Neck: Normal range of motion and appearance. Cardiovascular: tachycardic rate, regular rhythm and normal heart sounds. Pulmonary/Chest: Frequent cough, coarse breath sounds. Abdominal: Soft. No distension. Tender ruq and epigastric area. Musculoskeletal: Normal range of motion. No edema or tenderness. Neurological: oriented, normal strength, sensation, and coordination. Skin: Warm and dry. No rash or bruising. Psychiatric: Normal mood and affect. Normal behavior and judgement. Emergency Department Course ECG: Indication: abdominal pain Completed at 1257. Read at 1305. Sinus tachycardia. Right atrial enlargement. Left axis deviation. Pulmonary disease pattern. Abnormal ECG. Rate 104 bpm. [place] interval 160. QRS duration 80. QT/QTc 344/452. P-R-T axes 90 - 81 78. Imaging: Radiology findings were communicated with the patient who voiced understanding of the findings. US Abdomen Limited (RUQ) IMPRESSION: 1. Thickened gallbladder wall and/or pericholecystic fluid. No cholelithiasis, though with positive sonographic Moore sign, ultrasound findings concerning for cholecystitis. 2. Common bile duct is slightly dilated measuring up to 9 mm, though intrahepatic common hepatic duct is nondilated. 3. Diffuse fatty infiltration throughout the liver. Report per radiology Chest XR, PA & LAT IMPRESSION: Since September 04, 2016, heart size remains normal. Scattered linear opacities likely scar formation. No pleural effusion, pneumothorax, or abnormal area of consolidation. Report per radiology Laboratory: Laboratory findings were communicated with the patient who voiced understanding of the findings. CBC: WBC 15.9 (H), HGB 15.1, PLT 449 CMP: NA 126 (L), Chloride 86 (L), Glucose 107 (H), BUN 32 (H), Albumin 3.3 (L), Alkphos 318 (H), FQI307 (H), AST 69 (H) o/w WNL. (Creatinine 0.93) Lipase: 6,466 (H) Interventions: 1250 Nicoderm CQ 14mg/24hr 1 patch transdermal 1250 NS Bolus 1,000mL IV 1251 Zofran 4mg IV 1459 Dilaudid 0.5mg IV Emergency Department Course: Nursing notes and vitals reviewed. 1133: I performed an exam of the patient as documented above. IV was inserted and blood was drawn for laboratory testing, results above. The patient was sent for a US Abdomen Limited while in the emergency department, results above. EKG obtained in the ED, see results above. [address] Singh of the Hospitalist service regarding patient's presentation, findings, and plan of care. I discussed the treatment plan with the patient. They expressed understanding of this plan and consented to admission. I discussed the patient with Dr. Singh, who will admit the patient to a monitored bed for further evaluation and treatment. I personally reviewed the laboratory and imaging results with the Patient and answered all related questions prior to admission. Impression & Plan Medical Decision Makin-year-old male with a history of alcoholic pancreatitis who was presented with a recurrence of intense upper abdominal pain beginning last night. He reports last alcohol intake however was approximately 3 weeks ago. He is afebrile but obviously uncomfortable on arrival with significant right upper quadrant and epigastric tenderness. Workup has included . Laboratory tests revealing a lipase of 6466.He has a slightly elevated alkaline phosphatase and liver transaminases. White blood cell count of 15.9 and an electrolyte panel revealing hyponatremia. His serum sodium is 126. Imaging has included a right upper quadrant ultrasound which demonstrates a thickened gallbladder wall and/or pericholecystic fluid with no cholelithiasis. He will require admission to the hospital for further management. He is hemodynamically stable and appropriate for a medical bed in the care of the hospitalist service. The ultrasound findings were reviewed after disposed to the floor and there is significance is unclearbut coverage with antibiotics for possible cholecystitis and general surgery consultation may be warranted. Diagnosis: ICD-10-CM 1. Other acute pancreatitis, unspecified complication status K85.80 2. Hyponatremia E87.1 Disposition: Admitted under the supervision of Dr. Samantha Lawson Disclosure: I, Brittany Tracy, am serving as a scribe at 11:41 AM on 11/18/2018 to document services personally performed by Bryant Navarrete MD based on my observations and the provider's statements to me. Brittany Tracy 11/18/2018 [facility] EMERGENCY DEPARTMENT Bryant Navarrete MD 11/18/18 1817 [employer]HOU[employer] SUPERVISOR documented in this encounter Miscellaneous Notes Plan of Care - Víctor Marc, PT - 11/21/2018 11:25 AM CST PT: pt discharged home today without further need for IP PT. Physical Therapy Discharge Summary Reason for therapy discharge: Discharged to home. Progress towards therapy goal(s). See goals on Care Plan in Epic electronic health record for goal details. Goals partially met. Barriers to achieving goals: discharge from facility. 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 SaO2 stable on RA at rest 95%, down to 90% with activity, SOB/fatigue reported with activity. Amb hallways x 175ft with FWW and SBA, mild unsteadiness when using SEC, advised using FWW currently. Should be walking with nursing staff 3-4x/day. Barriers to return to prior living situation: none anticipated Recommendations for discharge: home with continued HEP (does not want to pursue OP PT for balance/gait/deconditioning) Rationale for recommendations: Anticipate patient will progress well given PLOF and current functional status. With continued PT intervention and ongoing medical management, anticipate pt will be able to meet mobility goals to safely discharge home. Therapy recommendation(s): Continue home exercise program. Pt not seen by discharging therapist on this date, note written based on previous treating therapist's notes and recommendations. NSION WAREHOUSE SUPERVISOR Plan of Care - Norma Carter RN - 11/21/2018 10:39 AM CST Pt admitted for pancreatitis. Discharging to home with transportation by daughter. Medications filled at [facility] in [place]. Discharge instructions covered and pt verbalized understanding of orders and medications. Pt understanding of when to follow up with provider. NSION WAREHOUSE SUPERVISOR Plan of Care - Jazmine Mcclure RN - 11/21/2018 5:40 AM CST Pt slept well. IVF infusing. Reports tolerating diet and denies pain or nausea. Up with SBA to BR. Uneventful night. 95%/RA. Anticipate home today with family. NSION WAREHOUSE SUPERVISOR Plan of Care - Arlyn Glass RN - 11/20/2018 10:39 PM CST A&Ox4. Ambulating SBA. Tolerating regular diet. LR running at 100ml.hr. Denies nausea and abdominal pain. C/O headache pain, PRN oxycodone given. RA satting 92-96%, continuous pulse ox in place. Possible discharge to home tomorrow. NSION WAREHOUSE SUPERVISOR Plan of Care - Víctor Marc, PT - 11/20/2018 3:06 PM CST PT: Eval complete, treatment initiated. Pt is admitted with acute pancreatitis, history of alcohol abuse, ongoing tobacco dependence, COPD, HTN, and CVA with some residual right-sided deficits. Lives with spouse, functions independently at baseline using SEC for balance. 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 SaO2 stable on RA at rest 95%, down to 90% with activity, SOB/fatigue reported with activity. Amb hallways x 175ft with FWW and SBA, mild unsteadiness when using SEC, advised using FWW currently. Should be walking with nursing staff 3-4x/day. Barriers to return to prior living situation: none anticipated Recommendations for discharge: home with continued HEP (does not want to pursue OP PT for balance/gait/deconditioning) Rationale for recommendations: Anticipate patient will progress well given PLOF and current functional status. With continued PT intervention and ongoing medical management, anticipate pt will be able to meet mobility goals to safely discharge home. Entered by: Víctor Marc 11/20/2018 3:07 PM NSION WAREHOUSE SUPERVISOR Plan of Care - Magalys Domingo RN - 11/20/2018 2:31 PM CST Pt is a/o. Up with SBA. VSS. Blood pressure was 156/94 recheck was 137/78. SOB with exertion,lung sounds diminished. On nasal cannula 98% at 2L. Lipase is improving 1350. Pain is tolerable. Advanced toregular diet, tolerating well. IV fluids LR running at 100ml/hr. Plan is to tolerate diet and keep pain decreased, discharge home tomorrow. NSION WAREHOUSE SUPERVISOR Plan of Care - Jazmine Mcclure RN - 11/20/2018 5:51 AM CST Pt up SBA, voiding well. Reports improvement in pain. Hopes to advance diet. Lungs with some ex wz after activity, congested productive cough. No significant events overnight, slept well with melatoningiven at HS. NSION WAREHOUSE SUPERVISOR Plan of Care - Paz Bruno RN - 11/19/2018 10:34 PM CST Pt up Ax1 w/ walker and gait belt. Alert and oriented x4. VSS. On 1L via nasal cannula.Oxycodone given for abd pain. Tolerating clear liquids, denies nausea. K re-check 4.0. Pt & nutrition consulted. NSION WAREHOUSE SUPERVISOR Plan of Care - Nanda Preciado RN - 11/19/2018 1:31 PM CST VSS, afebrile. 1.5-2 L o2. Up with assist of 1 and walker. Alert& oriented, tremulous. LS coarse, productive cough. Abd pain remains, IV dilaudid and PO oxycodone. Denies nausea, has tolerated someclear liquids. PT to see as well as nutrition consult for weight loss. Plan TBD. NSION WAREHOUSE SUPERVISOR Plan of Care - Jazmine Mcclure RN - 11/19/2018 7:36 AM CST IV dialudid x3- every 2 hours. Attempted PO in am, will follow up on pain relief. Hypo BS. Up with SBA, unsteady. Voiding well. Lungs clear but has productive green cough. Feels hungry but also c/o pain -06/28. No significant events overnight. Pt reports not sleeping well. NSION WAREHOUSE SUPERVISOR Plan of Care - Nanda Preciado RN - 11/18/2018 10:37 PM CST VSS, afebrile, requiring 2L o2. Up with assist of 1-2 with cane. Dilaudid x2 for pain. Pain worsenedafter clear liquid intake, pt advised by RN to reduce PO liquid intake. Voiding adequate amount. LS coarse with ronchi, productive cough. Melatonin x1 for sleep. Plan TBD, dispo TBD. Will continue to monitor. NSION WAREHOUSE SUPERVISOR Pharmacy-Admission Medication History - Courtney Martin [facility] - 11/18/2018 3:59 PM CST Admission medication history interview status for this patient is complete. See [facility] admission navigator for allergy information, prior to admission medications and immunization status. Medication history interview source(s):Patient Medication history resources (including written lists, pill bottles, clinic record):None Changes made to 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 medication list: Added: none Deleted: none Changed: none?? Actions taken by pharmacist (provider contacted, etc):None Additional medication history information:None Medication reconciliation/reorder completed by provider prior to medication history? yes Prior to Admission medications Medication Sig Last Dose Taking? Auth Provider ASPIRIN EC PO Take 325 mg by mouth daily 10 days ago Yes Unknown, Entered By History ATENOLOL PO Take 25 mg by mouth daily (with dinner) 10 days ago Yes Unknown, Entered By History fluticasone - vilanterol (BREO ELLIPTA) 100-25 MCG/INH oral inhaler Inhale 1 puff into the lungs daily 10 days ago Yes Unknown, Entered By History LISINOPRIL PO Take 20 mg by mouth daily (with dinner) 10 days ago Yes Unknown, Entered By History umeclidinium bromide (INCRUSE ELLIPTA) 62.5 MCG/INH inhalation capsule Inhale 62.5 mcg into the lungs daily 10 days ago Yes Unknown, Entered By History Cholecalciferol (VITAMIN D3 PO) Take 1,000 Units by mouth daily Unknown at Unknown time Unknown, Entered By History folic acid (FOLVITE) 1 MG tablet Take 1 tablet (1 mg) by mouth daily Unknown at Unknown time León Lagos MD multivitamin, therapeutic with minerals (THERA-VIT-M) TABS tablet Take 1 tablet by mouth daily Unknown at Unknown time León Lagos MD [employer] W[employer]HOUSE SUPERVISOR documented in this encounter Plan of Treatment Not on filedocumented as of this encounter Procedures Procedure Name Priority Date/Time Associated Diagnosis Comme nts LIPASE Routine 11/21/2018 8:21 Other acute Results for this AM D[employer]ION W[employer]HOUSE SUPERVISOR pancreatitis, procedure are in unspecified the results complication status section. BASIC METABOLIC PANEL Routine 11/21/2018 8:21 Other acute Res ults for this AM [employer]HOUSE SUPERVISOR pancreatitis, procedure are in unspecified the results complication status section. CBC WITH PLATELETS Routine 11/21/2018 8:21 Other acute Result s for this AM D[employer]ION W[employer]HOUSE SUPERVISOR pancreatitis, procedure are in unspecified the results complication status section. LIPASE Routine 11/20/2018 7:31 Other acute Results for this AM D[employer] W[employer]HOUSE SUPERVISOR pancreatitis, procedure are in unspecified the results complication status section. COMPREHENSIVE Routine 11/20/2018 7:31 Other acute Results for this METABOLIC PANEL AM D[employer]ION W[employer]HOUSE SUPERVISOR pancreatitis, procedure a re in unspecified the results complication status section. CBC WITH PLATELETS Routine 11/20/2018 7:31 Other acute Result s for this AM D[employer]ION W[employer]HOUSE SUPERVISOR pancreatitis, procedure are in unspecified the results complication status section. POTASSIUM Timed 11/19/2018 2:45 Other acute Results for this PM [employer]HOUSE SUPERVISOR pancreatitis, procedure are in unspecified the results complication status section. CBC WITH PLATELETS & Routine 11/19/2018 6:48 Other acute Resu lts for this DIFFERENTIAL AM D[employer]ION WAREHOUSE SUPERVISOR pancreatitis, procedure are in unspecified the results complication status section. LIPASE Routine 11/19/2018 6:48 Other acute Results for this AM D[employer] W[employer]HOUSE SUPERVISOR pancreatitis, procedure are in unspecified the results complication status section. COMPREHENSIVE Routine 11/19/2018 6:48 Other acute Results for this METABOLIC PANEL AM [employer] W[employer]HOUSE SUPERVISOR pancreatitis, procedure a re in unspecified the results complication status section. LACTATE FOR SEPSIS STAT 11/18/2018 4:10 Other acute Result s for this PROTOCOL PM [employer] W[employer]HOUSE SUPERVISOR pancreatitis, procedure are in unspecified the results complication status section. SODIUM Routine 11/18/2018 4:10 Other acute Results for this PM [employer] W[employer]HOUSE SUPERVISOR pancreatitis, procedure are in unspecified the results complication status section. XR CHEST 2 VIEWS STAT 11/18/2018 3:30 Results for this PM [employer]ION W[employer]HOUSE SUPERVISOR procedure are i n the results section. US ABDOMEN LIMITED STAT 11/18/2018 3:29 Result s for this PM [employer]ION W[employer]HOUSE SUPERVISOR procedure are i n the results section. EKG 12-LEAD, TRACING STAT 11/18/2018 12:57 Res ults for this ONLY PM [employer]ION W[employer]HOUSE SUPERVISOR procedure are i n the results section. CBC WITH PLATELETS & STAT 11/18/2018 12:45 Res ults for this DIFFERENTIAL PM D[employer]ENSION W[employer]HOUSE SUPERVISOR procedure are i n the results section. LIPASE STAT 11/18/2018 12:45 Results for this PM D[employer]ENSION W[employer]HOUSE SUPERVISOR procedure are i n the results section. COMPREHENSIVE STAT 11/18/2018 12:45 Results fo r this METABOLIC PANEL PM D[employer]ENSION WAREHOUSE SUPERVISOR procedure ar e in the results section. documented in this encounter Results (ABNORMAL) Basic metabolic panel (11/21/2018 8:21 AM DIMENSION WAREHOUSE SUPERVISOR) Analysis Performed At Patho logist Time Signature Sodium 134 133 - 144 11/21/2018 [place] mmol/L 9:40 AM [facility] Potassium 3.4 3.4 - 5.3 11/21/2018 [facility] mmol/L 9:40 AM [facility] Chloride 101 94 - 109 11/21/2018 [facility] mmol/L 9:40 AM [facility] Carbon Dioxide 28 20 - 32 11/21/2018 [facility] mmol/L 9:40 AM [facility] Anion Gap 5 3 - 14 11/21/2018 [place] mmol/L 9:40 AM [facility] Glucose 86 70 - 99 11/21/2018 [facility] mg/dL 9:40 AM [facility] Urea Nitrogen 4 (L) 7 - 30 11/21/2018 [facility] mg/dL 9:40 AM [facility] Creatinine 0.56 (L) 0.66 - 11/21/2018 [facility] 1.25 mg/dL 9:40 AM [facility] GFR Estimate >90 >60 11/21/2018 [place] mL/min/{1. 9:40 AM [facility] 73_m2} HOSPITAL Comment: Non GFR Calc Starting 11/05/2018, serum creatinine ba sed estimated GFR (eGFR) will be calculated using the Chronic Kidney Dise [facility] Epidemiology Collaboration (CKD-EPI) equation. GFR Estimate If >90 >60 mL/min/{1.73_m2} 11/21/2018 9: 40 AM [facility] Comment: GFR Calc Starting 11/05/2018, serum creatinine ba sed estimated GFR (eGFR) will be calculated using the Chronic Kidney Dise [facility] Epidemiology Collaboration (CKD-EPI) equation. Calcium 7.7 (L) 8.5 - 10.1 mg/dL 11/21/2018 9:40 AM [facility] Specimen Anatomical Collection Method Collection Time Receive d Time (Source) Location / / Volume Laterality Blood specimen 11/21/2018 8:21 AM 019 8:22 (specimen) DIMENSION WAREHOUSE SUPERVISOR AM [employer] W[employer]HOUSE SUPERVISOR Mariano Benjamin MD LAB - BLOOD ORDERABLES Performing Organization Address City/State/ZIP Code Phon e Number M [facility] [address] [place], [place] [address] [facility] [address] [phone] (ABNORMAL) Lipase (11/21/2018 8:21 AM DIMENSION WAREHOUSE SUPERVISOR) P athologist Signature Lipase 636 (H) 73 - 393 11/21/2018 [place] U/L 9:40 AM [facility] Specimen Anatomical Collection Method Collection Time Receive d Time (Source) Location / / Volume Laterality Blood specimen 11/21/2018 8:21 AM 019 8:22 (specimen) DIMENSION WAREHOUSE SUPERVISOR AM [employer]SE SUPERVISOR Mariano Benjamin MD LAB - BLOOD ORDERABLES Performing Organization Address City/[facility]/ZIP Code Phon e Number M [facility] [address], [place] [address] [facility] [address] [phone] (ABNORMAL) CBC with platelets (11/21/2018 8:21 AM DIMENSION W[employer]HOUSE SUPERVISOR) Analysis Performed At Patho logist Time Signature WBC 8.9 4.0 - 11.0 11/21/2018 [facility] 10e9/L 9:12 AM [facility] RBC Count 2.66 (L) 4.4 - 5.9 11/21/2018 [facility] 10e12/L 9:12 AM [facility] Hemoglobin 9.6 (L) 13.3 - 11/21/2018 [facility] 17.7 g/dL 9:12 AM [facility] Hematocrit 29.0 (L) 40.0 - 11/21/2018 [facility] 53.0 % 9:12 AM [facility] MCV 109 (H) 78 - 100 11/21/2018 [facility] fl 9:12 AM [facility] MCH 36.1 (H) 26.5 - 11/21/2018 [facility] 33.0 pg 9:12 AM [facility] MCHC 33.1 31.5 - 11/21/2018 [facility] 36.5 g/dL 9:12 AM [facility] RDW 14.8 10.0 - 11/21/2018 [facility] 15.0 % 9:12 AM [facility] Platelet Count 338 150 - 450 11/21/2018 [facility] 10e9/L 9:12 AM [facility] Specimen Anatomical Collection Method Collection Time Receive d Time (Source) Location / / Volume Laterality Blood specimen 11/21/2018 8:21 AM 019 8:22 (specimen) DIMENSION WAREHOUSE SUPERVISOR AM D[employer]ION W[employer]HOUSE SUPERVISOR Mariano Benjamin MD LAB - BLOOD ORDERABLES Performing Organization Address City/[facility]/ZIP Code Phon e Number M [place] [address], [place] [address] [place] [address] [address] [place], [place] [address], [facility] [phone] (ABNORMAL) Lipase (11/20/2018 7:31 AM [employer]) P athologist Signature Lipase 1,356 (H) 73 - 393 11/20/2018 [facility] U/L 8:31 AM [facility] Specimen Anatomical Collection Method Collection Time Receive d Time (Source) Location / / Volume Laterality Blood specimen 11/20/2018 7:31 AM 019 7:32 (specimen) [employer] AM [employer] Mariano Benjamin MD LAB - BLOOD ORDERABLES Performing Organization Address City/State/ZIP Code Phon e Number M [place] [address] [address] [place], [place] [address] [address], [facility] [phone] (ABNORMAL) Comprehensive metabolic panel (11/20/2018 7:31 AM [employer]) Analysis Performed At Patho logist Time Signature Sodium 133 133 - 144 11/20/2018 [facility] mmol/L 8:25 AM [facility] Potassium 3.8 3.4 - 5.3 11/20/2018 [facility] mmol/L 8:25 AM [facility] Chloride 100 94 - 109 11/20/2018 [facility] mmol/L 8:25 AM [facility] Carbon Dioxide 28 20 - 32 11/20/2018 [facility] mmol/L 8:25 AM [facility] Anion Gap 5 3 - 14 11/20/2018 [facility] mmol/L 8:25 AM [facility] Glucose 73 70 - 99 11/20/2018 [facility] mg/dL 8:25 AM [facility] Urea Nitrogen 7 7 - 30 11/20/2018 [facility] mg/dL 8:25 AM [facility] Creatinine 0.58 (L) 0.66 - 11/20/2018 [facility] 1.25 mg/dL 8:25 AM [facility] GFR Estimate >90 >60 11/20/2018 [facility] mL/min/{1. 8:25 AM [facility] 73_m2 HOSPITAL Comment: Non GFR Calc Starting 11/05/2018, serum creatinine ba sed estimated GFR (eGFR) will be calculated using the Chronic Kidney Dise [facility] Epidemiology Collaboration (CKD-EPI) equation. GFR Estimate If >90 >60 mL/min/{1.73_m2} 11/20/2018 8: 25 AM [facility] Comment: GFR Calc Starting 11/05/2018, serum creatinine ba sed estimated GFR (eGFR) will be calculated using the Chronic Kidney Dise [facility] Epidemiology Collaboration (CKD-EPI) equation. Calcium 7.7 (L) 8.5 - 10.1 11/20/2018 8:25 AM [facility] mg/dL [facility] Bilirubin Total 0.3 0.2 - 1.3 mg/dL 11/20/2018 8:25 AM [facility] Albumin 2.0 (L) 3.4 - 5.0 g/dL 11/20/2018 8:25 AM [facility] Protein Total 4.9 (L) 6.8 - 8.8 g/dL 11/20/2018 8:25 AM [facility] Alkaline Phosphatase 121 40 - 150 U/L 11/20/2018 8:25 AM [facility] ALT 37 0 - 70 U/L 11/20/2018 8:25 AM [facility] AST 24 0 - 45 U/L 11/20/2018 8:25 AM [facility] Specimen Anatomical Collection Method Collection Time Receive d Time (Source) Location / / Volume Laterality Blood specimen 11/20/2018 7:31 AM 019 7:32 (specimen) [employer] AM [employer] Mariano Benjamin MD LAB - BLOOD ORDERABLES Performing Organization Address City/State/ZIP Code Phon e Number M [facility] [address] [place], [place] [address] [facility] [address] [phone] (ABNORMAL) CBC with platelets (11/20/2018 7:31 AM [employer]) Analysis Performed At Patho logist Time Signature WBC 10.3 4.0 - 11.0 11/20/2018 [facility] 10e9/L 8:01 AM [facility] RBC Count 2.76 (L) 4.4 - 5.9 11/20/2018 [facility] 10e12/L 8:01 AM [facility] Hemoglobin 9.9 (L) 13.3 - 11/20/2018 [facility] 17.7 g/dL 8:01 AM [facility] Hematocrit 29.6 (L) 40.0 - 11/20/2018 [facility] 53.0 % 8:01 AM [facility] MCV 107 (H) 78 - 100 11/20/2018 [facility] fl 8:01 AM [facility] MCH 35.9 (H) 26.5 - 11/20/2018 [facility] 33.0 pg 8:01 AM [facility] MCHC 33.4 31.5 - 11/20/2018 [facility] 36.5 g/dL 8:01 AM [facility] RDW 14.6 10.0 - 11/20/2018 [facility] 15.0 % 8:01 AM [facility] Platelet Count 327 150 - 450 11/20/2018 [facility] 10e9/L 8:01 AM [facility] Specimen Anatomical Collection Method Collection Time Receive d Time (Source) Location / / Volume Laterality Blood specimen 11/20/2018 7:31 AM 019 7:32 (specimen) [employer] AM [employer] Mariano Benjamin MD LAB - BLOOD ORDERABLES Performing Organization Address City/[facility]/ZIP Code Phon e Number M [place] [address] [phone] Potassium (11/19/2018 2:45 PM [employer]) athologist Signature Potassium 4.0 3.4 - 5.3 11/19/2018 [facility] mmol/L 3:52 PM [facility] Specimen Anatomical Collection Method Collection Time Receive d Time (Source) Location / / Volume Laterality Blood specimen 11/19/2018 2:45 PM 019 2:46 (specimen) [employer] PM [employer]PER[employer] Mariano Benjamin MD LAB - BLOOD ORDERABLES Performing Organization Address City/State/[facility] Phon e Number M [facility] [address] [place], [place] [address] [place] [address] [address] [place] [address] [facility] [phone] (ABNORMAL) Lipase (11/19/2018 6:48 AM [employer]) P athologist Signature Lipase 2,529 (H) 73 - 393 11/19/2018 [facility] U/L 7:35 AM [facility] Specimen Anatomical Collection Method Collection Time Receive d Time (Source) Location / / Volume Laterality Blood specimen 11/19/2018 6:48 AM 019 6:49 (specimen) [employer] AM [employer] Andrews Stanley MD LAB - BLOOD ORDERABLES Performing Organization Address [facility] Phon e Number [place] [address] [address] [place], [place] [address] [place] [address] [address] [place], [place] [address] [facility] [phone] (ABNORMAL) CBC with platelets differential (11/19/2018 6:48 AM [employer]) [facility] Method Time Signature WBC 11.0 4.0 - 11/19/2018 [facility] 11.0 8:03 AM [facility] 10e9/L [facility] RBC Count 3.08 (L) 4.4 - 5.9 11/19/2018 [facility] 10e12/L 8:03 AM [facility] Hemoglobin 11.1 (L) 13.3 - 11/19/2018 [facility] 17.7 g/dL 8:03 AM [facility] Hematocrit 32.5 (L) 40.0 - 11/19/2018 [facility] 53.0 % 8:03 AM [facility] MCV 106 (H) 78 - 100 11/19/2018 [facility] fl 8:03 AM [facility] MCH 36.0 (H) 26.5 - 11/19/2018 [facility] 33.0 pg 8:03 AM [facility] MCHC 34.2 31.5 - 11/19/2018 [facility] 36.5 g/dL 8:03 AM [facility] RDW 14.6 10.0 - 11/19/2018 [facility] 15.0 % 8:03 AM [facility] Platelet Count 354 150 - 450 11/19/2018 [facility] 10e9/L 8:03 AM [facility] Diff Method Automated 11/19/2018 [facility] Method 8:03 AM [facility] % Neutrophils 82.8 % 11/19/2018 [facility] 8:03 AM [facility] % Lymphocytes 8.9 % 11/19/2018 [facility] 8:03 AM [facility] % Monocytes 6.1 % 11/19/2018 [facility] 8:03 AM [facility] % Eosinophils 1.2 % 11/19/2018 [facility] 8:03 AM [facility] % Basophils 0.4 % 11/19/2018 [facility] 8:03 AM [facility] % Immature 0.6 % 11/19/2018 [facility] Granulocytes 8:03 AM [facility] Nucleated RBCs 0 0 /100 11/19/2018 [facility] 8:03 AM [facility] Absolute 9.1 (H) 1.6 - 8.3 11/19/2018 [facility] Neutrophil 10e9/L 8:03 AM [facility] Absolute 1.0 0.8 - 5.3 11/19/2018 [facility] Lymphocytes 10e9/L 8:03 AM [facility] Absolute 0.7 0.0 - 1.3 11/19/2018 [facility] Monocytes 10e9/L 8:03 AM [facility] Absolute 0.1 0.0 - 0.7 11/19/2018 [facility] Eosinophils 10e9/L 8:03 AM [facility] Absolute 0.0 0.0 - 0.2 11/19/2018 [facility] Basophils 10e9/L 8:03 AM [facility] Abs Immature 0.1 0 - 0.4 11/19/2018 [facility] Granulocytes 10e9/L 8:03 AM [facility] Absolute 0.0 11/19/2018 [facility] Nucleated RBC 8:03 AM [facility] Specimen Anatomical Collection Method Collection Time Receive d Time (Source) Location / / Volume Laterality Blood specimen 11/19/2018 6:48 AM 019 6:49 (specimen) [employer] AM [employer]PER[employer] Andrews Stanley MD LAB - BLOOD ORDERABLES Performing Organization Address City/State/ZIP Code Phon e Number M [facility] [address] [place], [place] [address] [facility] [address] [place], [place] [address] [place] [address] (ABNORMAL) Comprehensive metabolic panel (11/19/2018 6:48 AM [employer]PER[employer]) Analysis Performed At Patho logist Time Signature Sodium 128 (L) 133 - 144 11/19/2018 [facility] mmol/L 7:32 AM [facility] Potassium 3.3 (L) 3.4 - 5.3 11/19/2018 [facility] mmol/L 7:32 AM [facility] Chloride 93 (L) 94 - 109 11/19/2018 [place] mmol/L 7:32 AM [facility] Carbon Dioxide 31 20 - 32 11/19/2018 [place] mmol/L 7:32 AM [facility] Anion Gap 4 3 - 14 11/19/2018 [place] mmol/L 7:32 AM [facility] Glucose 84 70 - 99 11/19/2018 [facility] mg/dL 7:32 AM [facility] Urea Nitrogen 19 7 - 30 11/19/2018 [place] mg/dL 7:32 AM [facility] Creatinine 0.65 (L) 0.66 - 11/19/2018 [facility] 1.25 mg/dL 7:32 AM [facility] GFR Estimate >90 >60 11/19/2018 [place] mL/min/{1. 7:32 AM [facility] 73_m2} HOSPITAL Comment: Non GFR Calc Starting 11/05/2018, serum creatinine ba sed estimated GFR (eGFR) will be calculated using the Chronic Kidney Dise [facility] Epidemiology Collaboration (CKD-EPI) equation. GFR Estimate If >90 >60 mL/min/{1.73_m2} 11/19/2018 7: 32 AM [facility] Comment: GFR Calc Starting 11/05/2018, serum creatinine ba sed estimated GFR (eGFR) will be calculated using the Chronic Kidney Dise [facility] Epidemiology Collaboration (CKD-EPI) equation. Calcium 8.1 (L) 8.5 - 10.1 11/19/2018 7:32 AM [place] [facility] mg/dL [facility] Bilirubin Total 0.6 0.2 - 1.3 mg/dL 11/19/2018 7:32 AM [facility] Albumin 2.3 (L) 3.4 - 5.0 g/dL 11/19/2018 7:32 AM [facility] Protein Total 5.4 (L) 6.8 - 8.8 g/dL 11/19/2018 7:32 AM [facility] Alkaline Phosphatase 158 (H) 40 - 150 U/L 11/19/2018 7:32 AM [facility] ALT 52 0 - 70 U/L 11/19/2018 7:32 AM [facility] AST 27 0 - 45 U/L 11/19/2018 7:32 AM [facility] Specimen Anatomical Collection Method Collection Time Receive d Time (Source) Location / / Volume Laterality Blood specimen 11/19/2018 6:48 AM 019 6:49 (specimen) [employer] AM [employer]PER[employer] Andrews Stanley MD LAB - BLOOD ORDERABLES Performing Organization Address City/[facility] Phon e Number [facility] [address] [place], [place] [address] [facility] [address] [place], [place] [address], [facility] [phone] Lactic acid level STAT for sepsis protocol (11/18/2018 4:10 PM [employer]) P athologist Signature Lactate for 1.7 0.7 - 2.0 11/18/2018 [place] Sepsis Protocol mmol/L 4:28 PM [facility] Specimen Anatomical Collection Method Collection Time Receive d Time (Source) Location / / Volume Laterality Blood specimen 11/18/2018 4:10 PM 018 4:11 (specimen) [employer] PM [employer]PER[employer] Andrews Stanley MD LAB - BLOOD ORDERABLES Performing Organization Address City/[facility] Phon e Number [facility] [address] [place], [place] [address] [facility] [address] [place], [place] [address], [facility] [phone] (ABNORMAL) Sodium (11/18/2018 4:10 PM [employer]) P athologist Signature Sodium 129 (L) 133 - 144 11/18/2018 [place] mmol/L 4:32 PM [facility] Specimen Anatomical Collection Method Collection Time Receive d Time (Source) Location / / Volume Laterality Blood specimen 11/18/2018 4:10 PM 018 4:11 (specimen) [employer]PER[employer]OR PM [employer] SUPERVISOR Andrews Stanley MD LAB - BLOOD ORDERABLES Performing Organization Address City/State/ZIP Code Phon e Number M [facility] [address] [place], [place] [address] [facility] [address] [place], [place] [address] [facility] [phone] Chest XR, PA & LAT (11/18/2018 3:30 PM [employer]PER[employer]) Anatomical Region Laterality Modality Chest Digital Radiography Specimen (Source) Anatomical Location Collection Method / Collectio n Time Received Time / Laterality Volume Impressions 11/18/2018 3:46 PM [employer]PERVISOR IMPRESSION: Since September 04, 2016, heart size remains normal. Scattered linear opacities likely scar f ormation. No pleural effusion, pneumothorax, or abnormal area of consol idation. BRYANT MISTRY MD Narrative 11/18/2018 3:46 PM [employer] CHEST TWO VIEWS ??11/18/2018 3:30 PM HISTORY: 58-year-old patient with histor y of cough, shortness of breath and smoking. Procedure Note Bryant Mistry MD - 11/18/2018 CHEST TWO VIEWS 11/18/2018 3:30 PM HISTORY: 58-year-old patient with histor y of cough, shortness of breath and smoking. IMPRESSION: Since September 04, 2016, hear t size remains normal. Scattered linear opacities likely scar f ormation. No pleural effusion, pneumothorax, or abnormal area of consol idation. BRYANT MISTRY MD Bryant Navarrete MD IMG DIAGNOSTIC IMAGING ORDER SHA US Abdomen Limited (RUQ) (11/18/2018 3:29 PM [employer]) Anatomical Region Laterality Modality Abdomen/Pelvis Ultrasound Specimen (Source) Anatomical Location Collection Method / Collectio n Time Received Time / Laterality Volume Impressions 11/18/2018 3:46 PM [employer] IMPRESSION: 1. Thickened gallbladder wall and/or per icholecystic fluid. No cholelithiasis, though with positive son ographic Moore sign, ultrasound findings concerning for alcides cystitis. 2. Common bile duct is slightly dilated measuring up to 9 mm, though intrahepatic common hepatic duct is nond ilated. 3. Diffuse fatty infiltration throughout the liver. BRYANT MISTRY MD Narrative 11/18/2018 3:46 PM [employer]PER[employer] ULTRASOUND ABDOMEN LIMITED 11/18/2018 3:29 PM HISTORY: ??58-year-old patient with righ t upper quadrant pain. COMPARISON: August 25, 2016. FINDINGS: The visualized pancreas is unr emarkable. Coarsened echotexture throughout the liver suggest flower of diffuse fatty infiltration. Liver size is 13.8 cm. No focal liver lesion. The right kidney is 11.7 cm in length with AP ??co rtical thickness of 1.5 cm. Gallbladder wall thickness appears abnor mal measuring up to 1.2 cm with suggestion of gallbladder wall caro a. There may be pericholecystic fluid, as well. Positive sonographic Moore's sign. Common bile duct is up to 9 mm with comm on hepatic duct of 4 mm. Procedure Note Bryant Mistry MD - 11/18/2018 ULTRASOUND ABDOMEN LIMITED 11/18/2018 3: 29 PM HISTORY: 58-year-old patient with right upper quadrant pain. COMPARISON: August 25, 2016. FINDINGS: The visualized pancreas is unr emarkable. Coarsened echotexture throughout the liver suggest flower of diffuse fatty infiltration. Liver size is 13.8 cm. No focal liver lesion. The right kidney is 11.7 cm in length with AP jacqueline ical thickness of 1.5 cm. Gallbladder wall thickness appears abnor mal measuring up to 1.2 cm with suggestion of gallbladder wall caro a. There may be pericholecystic fluid, as well. Positive sonographic Moore's sign. Common bile duct is up to 9 mm with comm on hepatic duct of 4 mm. IMPRESSION: 1. Thickened gallbladder wall and/or per icholecystic fluid. No cholelithiasis, though with positive son ographic Moore sign, ultrasound findings concerning for alcides cystitis. 2. Common bile duct is slightly dilated measuring up to 9 mm, though intrahepatic common hepatic duct is nond ilated. 3. Diffuse fatty infiltration throughout the liver. BRYANT MISTRY MD Bryant Navarrete MD IMG US ORDERABLES EKG 12 lead (11/18/2018 12:57 PM [employer] SUPERVISOR) [facility] gist Method Time Signature Interpretation ECG Click View RADIOLOGY Image link RESULTS to view waveform and result Specimen (Source) Anatomical Collection Method Collection Time Re ceived Time Location / / Volume Laterality 11/18/2018 12:57 PM [employer] Bryant Navarrete MD ECG ORDERABLES Performing Organization Address City/State/ZIP Code Phon e Number RADIOLOGY RESULTS (ABNORMAL) Lipase (11/18/2018 12:45 PM [employer] SUPERVISOR) athologist [facility] Lipase 6,466 (H) 73 - 393 11/18/2018 [place] U/L 1:21 PM [facility] Comment: Specimen run with a dilution Specimen Anatomical Collection Method Collection Time Receive d Time (Source) Location / / Volume Laterality Blood specimen 11/18/2018 12:45 8 (specimen) PM [employer] 12:58 PM [employer]PER[employer] Bryant Navarrete MD LAB - BLOOD ORDERABLES Performing Organization Address City/State/ZIP Code Phon e Number [place] [address] [address] [place] [address] [place] [address] [phone] (ABNORMAL) Comprehensive metabolic panel (11/18/2018 12:45 PM [employer] SUPERVISOR) athologist Signature Sodium 126 (L) 133 - 144 11/18/2018 [facility] mmol/L 1:20 PM [facility] Potassium 3.7 3.4 - 5.3 11/18/2018 [facility] mmol/L 1:20 PM [facility] Chloride 86 (L) 94 - 109 11/18/2018 [place] mmol/L 1:20 PM [facility] Carbon Dioxide 31 20 - 32 11/18/2018 [place] mmol/L 1:20 PM [facility] Anion Gap 9 3 - 14 11/18/2018 [place] mmol/L 1:20 PM [facility] Glucose 107 (H) 70 - 99 11/18/2018 [facility] mg/dL 1:20 PM [facility] Urea Nitrogen 32 (H) 7 - 30 11/18/2018 [place] mg/dL 1:20 PM [facility] Creatinine 0.93 0.66 - 11/18/2018 [facility] 1.25 mg/dL 1:20 PM [facility] GFR Estimate 89 >60 11/18/2018 [place] mL/min/{1. 1:20 PM [facility] 73_m2} HOSPITAL Comment: Non GFR Calc Starting 11/05/2018, serum creatinine ba sed estimated GFR (eGFR) will be calculated using the Chronic Kidney Dise [facility] Epidemiology Collaboration (CKD-EPI) equation. GFR Estimate If >90 >60 mL/min/{1.73_m2} 11/18/2018 1: 20 PM [facility] Comment: GFR Calc Starting 11/05/2018, serum creatinine ba sed estimated GFR (eGFR) will be calculated using the Chronic Kidney Dise [facility] Epidemiology Collaboration (CKD-EPI) equation. Calcium 9.6 8.5 - 10.1 11/18/2018 1:20 PM [facility] mg/dL [facility] Bilirubin Total 0.5 0.2 - 1.3 mg/dL 11/18/2018 1:20 PM [facility] Albumin 3.3 (L) 3.4 - 5.0 g/dL 11/18/2018 1:20 PM [facility] Protein Total 7.9 6.8 - 8.8 g/dL 11/18/2018 1:20 PM [facility] Alkaline Phosphatase 318 (H) 40 - 150 U/L 11/18/2018 1:20 PM [facility] ALT 108 (H) 0 - 70 U/L 11/18/2018 1:20 PM [facility] AST 69 (H) 0 - 45 U/L 11/18/2018 1:20 PM [facility] Specimen Anatomical Collection Method Collection Time Receive d Time (Source) Location / / Volume Laterality Blood specimen 11/18/2018 12:45 8 (specimen) PM [employer] SUPER[employer]OR 12:58 PM [facility] Bryant Navarrete MD LAB - BLOOD ORDERABLES Performing Organization Address City/State/ZIP Code Phon e Number M [facility] [address] [place], [place] [address] [facility] [address] [place], [place] [address] [facility] [phone] (ABNORMAL) CBC with platelets differential (11/18/2018 12:45 PM [employer] SUPERVISOR) [facility] gist Method Time Signature WBC 15.9 (H) 4.0 - 11/18/2018 [facility] 11.0 1:03 PM [facility] 10e9/L [facility] RBC Count 4.14 (L) 4.4 - 5.9 11/18/2018 [facility] 10e12/L 1:03 PM [facility] Hemoglobin 15.1 13.3 - 11/18/2018 [facility] 17.7 g/dL 1:03 PM [facility] Hematocrit 43.8 40.0 - 11/18/2018 [facility] 53.0 % 1:03 PM [facility] MCV 106 (H) 78 - 100 11/18/2018 [facility] fl 1:03 PM [facility] MCH 36.5 (H) 26.5 - 11/18/2018 [facility] 33.0 pg 1:03 PM [facility] MCHC 34.5 31.5 - 11/18/2018 [facility] 36.5 g/dL 1:03 PM [facility] RDW 14.7 10.0 - 11/18/2018 [facility] 15.0 % 1:03 PM [facility] Platelet Count 449 150 - 450 11/18/2018 [facility] 10e9/L 1:03 PM [facility] Diff Method Automated 11/18/2018 [facility] Method 1:03 PM [facility] % Neutrophils 86.8 % 11/18/2018 [facility] 1:03 PM [facility] % Lymphocytes 5.7 % 11/18/2018 [facility] 1:03 PM [facility] % Monocytes 6.2 % 11/18/2018 [facility] 1:03 PM [facility] % Eosinophils 0.4 % 11/18/2018 [facility] 1:03 PM [facility] % Basophils 0.3 % 11/18/2018 [facility] 1:03 PM [facility] % Immature 0.6 % 11/18/2018 [place] Granulocytes 1:03 PM [facility] Nucleated RBCs 0 0 /100 11/18/2018 [facility] 1:03 PM [facility] Absolute 13.8 (H) 1.6 - 8.3 11/18/2018 [place] Neutrophil 10e9/L 1:03 PM [facility] Absolute 0.9 0.8 - 5.3 11/18/2018 [place] Lymphocytes 10e9/L 1:03 PM [facility] Absolute 1.0 0.0 - 1.3 11/18/2018 [place] Monocytes 10e9/L 1:03 PM [facility] Absolute 0.1 0.0 - 0.7 11/18/2018 [place] Eosinophils 10e9/L 1:03 PM [facility] Absolute 0.1 0.0 - 0.2 11/18/2018 [place] Basophils 10e9/L 1:03 PM [facility] Abs Immature 0.1 0 - 0.4 11/18/2018 [place] Granulocytes 10e9/L 1:03 PM [facility] Absolute 0.0 11/18/2018 [place] Nucleated RBC 1:03 PM [facility] Specimen Anatomical Collection Method Collection Time Receive d Time (Source) Location / / Volume Laterality Blood specimen 11/18/2018 12:45 8 (specimen) PM [employer]PER[employer] 12:58 PM [employer]PER[employer] Bryant Navarrete MD LAB - BLOOD ORDERABLES Performing Organization Address City/State/ZIP Code Phon e Number [place] [address] [phone] documented in this encounter Visit Diagnoses Diagnosis Anxiety - Primary Anxiety state, unspecified Other acute pancreatitis, unspecified co mplication status Hyponatremia Hyposmolality and/or hyponatremia Pancreatitis Acute pancreatitis documented in this encounter Administered Medications Inactive Administered Medications - up to 3 most recent administrations Medication Order MAR Action Action Date Dose Rate Site aspirin (ASA) EC tablet 325 mg Given 11/21/2018 7:54 AM [employer] 325 mg 325 mg, Oral, DAILY, First dose on Sun11/19/18 at 0900 Given 11/20/2018 10:05 AM [employer] 325 mg Given 11/19/2018 8:06 AM [employer] 325 mg atenolol (TENORMIN) tablet 25 mg Given 11/20/2018 4:52 PM [employer] 25 mg 25 mg, Oral, DAILY WITH SUPPER, First dose on Sun11/19/18 at 1700 Given 11/19/2018 4:04 PM [employer] 25 mg docusate sodium (COLACE) capsule 100 mg Given 11/21/2018 7:53 AM [employer] 100 mg 100 mg, Oral, 2 TIMES DAILY, First dose on Sun11/18/18 at 2100, To prevent constipation. Hold for loose stools. Given 11/20/2018 8:50 PM [employer] 100 mg Given 11/20/2018 10:05 AM [employer] 100 mg famotidine (PEPCID) injection 20 mg Given 11/20/2018 10:06 AM [employer] 20 mg 20 mg, Intravenous, Administer over 2 Minutes, 2 TIMES DAILY, First dose on Sun11/18/18 at 2100, For ordered IV doses 1-20 mg, give IV Push diluted with 5-10ml NS over a minimum of 2 minutes. Given 11/19/2018 8:38 PM [employer] 20 mg Given 11/19/2018 8:06 AM [employer] 20 mg famotidine (PEPCID) tablet 20 mg Given 11/21/2018 7:53 AM [employer] 20 mg 20 mg, Oral, 2 TIMES DAILY, First dose on Sun11/20/18 at 2100, IV to PO per protocol Given 11/20/2018 8:50 PM [employer] 20 mg fluticasone-vilanterol (BREO ELLIPTA) 100-25 Given 01/2019 8:15 AM [employer] 1 puff MCG/INH inhaler 1 puff 1 puff, Inhalation, DAILY, First dose on Sun11/18/18 at 1600, *Do not use more frequently than once daily.* Rinse mouth after use. Given 11/20/2018 8:25 AM [employer] 1 puff Given 11/19/2018 8:17 AM [employer] 1 puff folic acid (FOLVITE) tablet 1 mg Given 11/21/2018 7:53 AM [employer] 1 mg 1 mg, Oral, DAILY, First dose on Sun11/19/18 at 0900 Given 11/20/2018 10:05 AM [employer] 1 mg Given 11/19/2018 8:06 AM [employer] 1 mg HYDROmorphone (PF) (DILAUDID) injection Given 11/19/2018 10:09 A M [employer] 0.5 mg 0.3-0.5 mg 0.3-0.5 mg, Intravenous, EVERY 2 HOURS PRN, other, for pain control or improvement in physical function. Hold dose for analgesic side effects., Starting on Sun11/18/18 at 1555, Give if unable to tolerate oral pain meds, Start at the lowest dose. May adjust dose by 0.1 mg every 2 hours as needed. Notify provider to assess for uncontrolled pain or analgesic side effects. Hold while on FALSEWORK BUILDER or with regular IV opioid dosing For ordered IV doses 0.1-4 mg give IV Push undiluted. Administer each 2mg over 2-5 minutes. Given 11/19/2018 8:10 AM [employer] 0.5 mg Given 11/19/2018 4:52 AM [employer] 0.5 mg HYDROmorphone (PF) (DILAUDID) injection 0.5 Given 11/18/2018 2:59 PM [employer] 0.5 mg mg 0.5 mg, Intravenous, EVERY 15 MIN PRN, moderate to severe pain, Starting on Sun11/18/18 at 1141, For 3 doses, For ordered IV doses 0.1-4 mg give IV Push undiluted. Administer each 2mg over 2-5 minutes. Given 11/18/2018 12:50 PM [employer] 0.5 mg ipratropium - albuterol 0.5 mg/2.5 mg/3 mL Given 11/18/2018 4:26 PM [employer] 3 mLs (DUONEB) neb solution 3 mL 3 mL, Nebulization, EVERY 4 HOURS WHILE AWAKE, First dose on Sun11/18/18 at 1630 ipratropium - albuterol 0.5 mg/2.5 mg/3 mL Given 11/21/2018 8:15 AM [employer] 3 mLs (DUONEB) neb solution 3 mL 3 mL, Nebulization, 4 TIMES DAILY RT, First dose (after last modification) on Sun11/18/18 at 2000 Given 11/20/2018 8:19 PM [employer] 3 mLs Given 11/20/2018 3:51 PM [employer] 3 mLs ipratropium - albuterol 0.5 mg/2.5 mg/3 mL (DUONEB) neb solution 3 mL 3 mL, Nebulization, EVERY 4 HOURS PRN, w heezing, Starting on Sun11/18/18 at 1719 lactated ringers infusion New Bag 11/20/2018 8:53 PM [employer] 100 mL/hr at 100 mL/hr, Intravenous, CONTINUOUS, Starting on Sun11/18/18 at 1600, Until Maida 11/21/18 at 1325 New Bag 11/20/2018 10:16 AM [employer] 100 mL/hr New Bag 11/19/2018 2:17 PM [employer] 100 mL/hr melatonin tablet 3 mg Given 11/20/2018 8:51 PM [employer] 3 mg 3 mg, Oral, AT BEDTIME, First dose on Sun11/18/18 at 2200 Given 11/19/2018 8:37 PM [employer] 3 mg Given 11/18/2018 9:41 PM [employer] 3 mg multivitamin w/minerals (THERA-VIT-M) Given 11/21/2018 7:[address] 1 tablet tablet 1 tablet 1 tablet, Oral, DAILY, First dose on Sun11/19/18 at 0900 Given 11/20/2018 10:05 AM [employer] 1 tablet Given 11/19/2018 8:06 AM [employer] 1 tablet nicotine (NICODERM CQ) 14 MG/24HR 24 Given 11/21/2018 7:53 AM CS T 1 patch Left Arm hr patch 1 patch 1 patch, Transdermal, DAILY, First dose on Sun11/18/18 at 1142 Given 11/20/2018 10:05 AM [employer] 1 patch Righ t Arm Given 11/19/2018 6:40 PM [employer] 1 patch Left Arm nicotine Patch in Place First dose on Sun11/18/18 at 1142, Chart every shift, confirming that patch is still in place on patient (no barcode scan needed). Se e patch order for dose information. nicotine patch REMOVAL First dose on Sun11/19/18 at 0800, Remove patch when new patch is applied or patch is discontinued. ondansetron (ZOFRAN) injection 4 mg Given 11/18/2018 12:51 PM [employer] 4 mg 4 mg, Intravenous, EVERY 30 MIN PRN, nausea, vomiting, Administer over 2-5 Minutes, Starting on Sun11/18/18 at 1141, For 3 doses, May repeat in 30 minutes as needed, up to 3 doses. Irritant. For ordered IV doses 0.1-4 mg, give IV Push undiluted over 2-5 minutes. ondansetron (ZOFRAN) injection 4 mg 4 mg, Intravenous, EVERY 6 HOURS PRN, nausea, vomiting , Administer over 2-5 Minutes, Starting on Sun11/18/18 at 155 5, This is Step 1 of nausea and vomiting management. If nausea not resolved in 15 minutes, go t o Step 2 prochlorperazine (COMPAZINE). Irritant. For ordered IV do ses 0.1-4 mg, give IV Push undiluted over 2-5 minutes. ondansetron (ZOFRAN-ODT) ODT tab 4 mg 4 mg, Oral, EVERY 6 HOURS PRN, nausea, v omiting, Starting on Sun11/18/18 at 1555, This is Step 1 of nausea and vomiting management. If n ausea not resolved in 15 minutes, go to Step 2 prochlorperazine (COMPAZINE). Do not push through foil backing. Peel back foil and gently remove. Place on to ngue immediately. Administration with liquid unnecessary W ith dry hands, peel back foil backing and gently remove tablet; do not push oral d isintegrating tablet through foil backing; administer immediately on tongue and oral disintegrati ng tablet dissolves in seconds; then swallow with saliva; liquid not required . oxyCODONE (ROXICODONE) tablet 5-10 mg Given 11/20/2018 8:53 PM [employer] 5 mg 5-10 mg, Oral, EVERY 3 HOURS PRN, other, pain control or improvement in physical function. Hold dose for analgesic side effects., Starting on Sun11/18/18 at 1555, Start with the lowest dose. May adjust dose by 5 mg every 3 hours as needed. Notify provider to assess for uncontrolled pain or analgesic side effects. Hold while on FALSEWORK BUILDER or with regular IV opioid dosing. Given 11/19/2018 5:09 PM [employer] 5 mg Given 11/19/2018 2:09 PM [employer] 5 mg potassium chloride (KLOR-CON) Packet 20-40 Given 11/19/2018 10:02 AM [employer] 20 mEq mEq 20-40 mEq, Oral or Feeding Tube, EVERY 2 HOURS PRN, potassium supplementation, Starting on Sun11/18/18 at 1555, Use if unable to tolerate tablets. If Serum K+ 3.4-4.0, dose = 20 mEq x1. Recheck K+ level the next AM. If Serum K+ 3.0-3.3, dose = 60 mEq po total dose (40 mEq x 1 followed in 2 hours by 20 mEq X1). Recheck K+ level 4 hours after dose and the next AM. If Serum K+ 2.5-2.9, dose = 80 mEq po total dose (40 mEq Q2H x2). Recheck K+ level 4 hours after dose and the next AM. If Serum K+ less than 2.5, See IV order. Dissolve packet contents in 4-8 ounces of cold water or juice. Given 11/19/2018 8:10 AM [employer] 40 mEq prochlorperazine (COMPAZINE) injection 1 0 mg 10 mg, Intravenous, EVERY 6 HOURS PRN, nausea, vomitin g, Administer over 1-2 Minutes, Starting on Sun11/18/18 at 155 5, This is Step 2 of nausea and [...] 12 HOURS PRN, nause a, vomiting, Starting on Sun11/18/18 at 1555, This is Step 2 of nausea and vomit ing management. Give if nausea not resolved 15 minutes after giving ondansetron (ZOF RAN). If nausea not resolved in 15 minutes, go to Step 3 metoclopramide (REGLAN), if ordered. prochlorperazine (COMPAZINE) tablet 10 m g 10 mg, Oral, EVERY 6 HOURS PRN, vomiting , Starting on Sun11/18/18 at 1555, This is Step 2 of nausea and vomiting management . Give if nausea not resolved 15 minutes after giving ondansetron (ZOFRAN). If na usea not resolved in 15 minutes, go to Step 3 metoclopramide (REGLAN), if ordered. senna-docusate (SENOKOT-S/PERICOLACE) 8. 6-50 MG per tablet 1 tablet 1 tablet, Oral, 2 TIMES DAILY PRN, const ipation, Starting on Sun11/18/18 at 1555, If no bowel movement in 24 hours, increa se to 2 tablets PO. Hold for loose stools. This is the first step of a three step constipation tr eatment. senna-docusate (SENOKOT-S/PERICOLACE) 8. 6-50 MG per tablet 2 tablet 2 tablet, Oral, 2 TIMES DAILY PRN, const ipation, Starting on Sun11/18/18 at 1555, Hold for loose stools. This is the first step of a thr ee step constipation treatment. sodium chloride 0.9% infusion New Bag 11/18/2018 12:50 PM [employer] 125 mL/hr at 125 mL/hr, Intravenous, CONTINUOUS, Starting on Sun11/18/18 at 1142, Until Sun11/18/18 at 1555 documented in this encounter Active and Recently Administered Medications Times are shown in [employer]. Scheduled Medication Order 11/19/2018 11/20/2018 11/21/2018 aspirin (ASA) EC tablet 325 mg 0806 (Given - Provider: Nanda Preciado RN) 1005 (Given - Provider: Magalys Domingo RN) 0754 (Given - Provider: Norma Carter RN)0900 (Canceled Entry - Provider: Norma Carter RN) 325 mg, Oral, DAILY, First dose on Sun11/19/18 at 0900 atenolol (TENORMIN) tablet 25 mg 1604 (Given - Provider: Katelin Hartley LPN) 1652 (Given - Provider: Arlyn Glass RN) 25 mg, Oral, DAILY WITH SUPPER, First dose on Sun11/19/18 at 1700 docusate sodium (COLACE) capsule 100 mg 0806 (Given - Provider: Nanda Preciado RN)203 (Given - Provider: Paz Bruno RN) 1005 (Given - Provider: Magalys Domingo RN)2049 (Given - Provider: Arlyn Glass RN) 0753 (Given - Provider: Norma Carter RN) 100 mg, Oral, 2 TIMES DAILY, First dose on Sun11/18/18 at 2100, To prevent constipation. Hold for loose stools. famotidine (PEPCID) injection 20 mg (CANCELED) 08 (G iven - Provider: Nanda Preciado RN)2037 (Given - Provider: Paz Bruno, RICHY) 1006 (Given - Provider: Magalys Domingo, RICHY) 20 mg, Intravenous, Administer over 2 Mi nutes, 2 TIMES DAILY, First dose on Sun11/18/18 at 2100, For ordered IV doses 1-20 mg, give IV Push diluted with 5-10ml NS over a minimum of 2 minutes. famotidine (PEPCID) tablet 20 mg 2049 (Given - P rovider: Arlyn Glass RN) 0753 (Given - Provider: Norma Carter, RICHY) 20 mg, Oral, 2 TIMES DAILY, First dose o n 11/20/18 at 2100, IV to PO per protocol fluticasone-vilanterol (BREO ELLIPTA) 100-25 MCG/INH i nhaler 1 puff 0817 (Given - Provider: RT Vincent) 0825 (Given - Provider: Jeanie Strickland RT) 0815 (Given - Provider: Mac Cardenas) 1 puff, Inhalation, DAILY, First dose on Sun11/18/18 at 1600, *Do not use more frequently than once daily.* Rinse mouth after use. folic acid (FOLVITE) tablet 1 mg 08 (Given - Provider: Jonah Preciado RN) 1005 (Given - Provider: Magalys Domingo, RICHY) 0753 (Given - Provider: Norma Carter, RICHY) 1 mg, Oral, DAILY, First dose on Sun11/19/18 at 0900 ipratropium - albuterol 0.5 mg/2.5 mg/3 mL (DUONEB) ne b solution 3 mL 0817 (Given - Provider: RT Vincent)1135 (Given - Provider: RT Vincent)1542 (Given - Provider: Jeanie Arriaga RT)1958 (Given - Provider: David Mendez RT) 0825 (Given - Provider: Jeanie Strickland RT)1159 (Given - Provider: Jeanie Arriaga RT)1551 (Given - Provider: Jeanie Arriaga, RT)2019 (Given - Provider: Katelin Verma, RT) 0815 (Given - Provider: Allison Vazquez, RT)1200 (Canceled Entry - Provider: Orders Generic Provider - Comment: Automatically canceled at discontinue of medication order) 3 mL, Nebulization, 4 TIMES DAILY, First dose on Sun11/18/18 at 2000 melatonin tablet 3 mg 2036 (Given - Provider: Paz Bruno RN - Comment: given early per pt request)2103 (Canceled Entry - Provider: Katelin Hartley LPN) 2050 (Given - Provider: Arlyn Glass RN - Comment: pt request)2200 (Canceled Entry - Provider: Arlyn Glass RN) 3 mg, Oral, AT BEDTIME, First dose on Sun11/18/18 at 2200 multivitamin w/minerals (THERA-VIT-M) tablet 1 tablet 0806 (Given - Provider: Nanda Preciado RN) 1005 (Given - Provider: Magalys Domingo RN) 0754 (Given - Provider: Norma Carter, RICHY) 1 tablet, Oral, DAILY, First dose on Sun11/19/18 at 0900 nicotine (NICODERM CQ) 14 MG/24HR 24 hr patch 1 patch 0806 (Given - Provider: Nanda Preciado RN)1840 (Given - Provider: Katelin Hartley LPN) 1005 (Given - Provider: Magalys Domingo RN) 0753 (Given - Provider: Norma Carter, RICHY ) 1 patch, Transdermal, DAILY, First dose on Sun11/18/18 at [address] 0806 (Patch in Place - Provi jian: Nanda Preciado RN)1604 (Patch in Place - Provider: Katelin Hartley LPN) 0028 (Patch in Place - Provider: Jazmine Mcclure RN)1007 (Patch in Place - Provider: Magalys Domingo RN)1556 (Patch in Place - Provider: Arlyn Glass RN) 0045 (Patch in Place - Provider: Jazmine Mcclure RN)0755 (Patch in Place - Provider: Norma Carter RN) First dose on Sun11/18/18 at 1142, Kiya t every shift, confirming that patch is still in place on patient (no barcode scan needed). See patch order for dose information. nicotine patch REMOVAL 0807 (Patch/Med Removed - Provider: Robina Preciado, RICHY) 1007 (Patch/Med Removed - Provider: Magalys Domingo, RICHY) 0755 (Patch/Med Removed - Provider: Norma Carter, RICHY) First dose on Sun11/19/18 at 0800, Remove patch when new patch is applied or patch is discontinued. Continuous Medication Order 11/19/2018 11/20/2018 11/21/2018 lactated ringers infusion 0212 (New Bag - Provider: Preston Mcclure RN)0704 (New Bag - Provider: Jazmine Mcclure RN)0925 (Rate/Dose Change - Provider: Nanda Preciado RN)1417 (New Bag - Provider: Emani Morin LPN) 1016 (New Bag - Provider: Magalys Domingo RN)2053 (New Bag - Provider: Arlyn Glass RN) at 100 mL/hr, Intravenous, CONTINUOUS, S tarting Sun11/18/18 at 1600, Until Maida 11/21/18 at 1325 PRN Medication Order 11/19/2018 11/20/2018 11/21/2018 bisacodyl (DULCOLAX) Suppository 10 mg 10 mg, Rectal, DAILY PRN, constipation, Starting Sun11/18/18 at 1555, Hold for loose stools. This is the third step of a three step constipation treatment. HYDROmorphone (PF) (DILAUDID) injection 0.3-0.5 mg 000 6 (Given - Provider: Jazmine Mcclure RN)0213 (Given - Provider: Jazmine Mcclure, RICHY)0452 (Given - Provider: Jazmine Mcclure RN)0810 (Given - Provider: Nanda Preciado RN)1009 (Given - Provider: Nanda Preciado, RICHY) 0.3-0.5 mg, Intravenous, EVERY 2 HOURS P RN, Starting Sun11/18/18 at 1555, Until Maida 11/21/18 at 1325, other, for pain control or improvement in physical function. Hold dose for analgesic side effects., G flower if unable to tolerate oral pain meds , Start at the lowest dose. May adjust dose by 0.1 mg every 2 hours as needed. Notify provider to assess for uncontrolled pain or analgesic side effects. Hold whi le on FALSEWORK BUILDER or with regular IV opioid dosi ng For ordered IV doses 0.1-4 mg give IV Push undiluted. Administer each 2mg over 2-5 minutes. ipratropium - albuterol 0.5 mg/2.5 mg/3 mL (DUONEB) neb solution 3 mL 3 mL, Nebulization, EVERY 4 HOURS PRN, wheezing, Starting Mo n 11/18/18 at 1719 magnesium sulfate 2 g in NS intermittent infusion ([employer]ar[employer] or [facility]) 2 g, Intravenous, Administer over 60 Min utes, DAILY PRN, Starting 11/18/18 at 1555, magnesium supplementation, For Serum Mg++ 1.6 - 2 mg/dL Give 2 g and recheck magnesium level next AM. magnesium sulfate 4 g in 100 mL sterile water (premade) 4 g, Intravenous, Administer over 120 Mi nutes, EVERY 4 HOURS PRN, Starting 11/18/18 at 1555, magnesium supplementation, For serum Mg++ less than 1.6 mg/dL Give 4 g and recheck magnesium level 2 hours after dose, and next AM. melatonin tablet 1 mg 1 mg, Oral, AT BEDTIME PRN, sleep, Start ing 11/18/18 at 1555, Do not give unless at least 6 hours of uninterrupted sleep is expected. naloxone (NARCAN) injection 0.1-0.4 mg 0.1-0.4 mg, Intravenous, EVERY 2 MIN PRN , opioid reversal, Starting 11/18/18 at 1555, For respiratory rate LESS than or EQUAL to 8. Partial reversal dose: 0.1 mg titrated q 2 minutes for Analgesia S nathan Effects Monitoring Sedation Level of 3 (frequently drowsy, arousable, drifts to sleep during conversation).Full reversal dose: 0.4 mg bolus for Analgesia Side Effects Monitoring Sedation Level of 4 (somnolent, minimal or no response to st imulation). For ordered IV doses 0.1-2mg give IVP. Give each 0.4mg over 15 seconds in emergency situations. For non- emergent situations further dilute in 9mL of NS to facilitate titration of response. ondansetron (ZOFRAN) injection 4 mg(Linked Group 1) 4 mg, Intravenous, EVERY 6 HOURS PRN, na usea, vomiting, Administer over 2-5 Minutes, Starting 11/18/18 at 1555, This is Step 1 of nausea and vomiting management. If nausea not resolved in 15 minutes , go to Step 2 prochlorperazine (COMPAZI NE). Irritant. For ordered IV doses 0.1- 4 mg, give IV Push undiluted over 2-5 minutes. ondansetron (ZOFRAN-ODT) ODT tab 4 mg(Linked Group 1) 4 mg, Oral, EVERY 6 HOURS PRN, nausea, v omiting, Starting 11/18/18 at 1555, This is Step 1 of nausea and vomiting management. If nausea not resolved in 15 minutes, go to Step 2 prochlorperazine (COM PAZINE). Do not push through foil backin g. Peel back foil and gently remove. Place on tongue immediately. Administration with liquid unnecessary With dry hands, peel back foil backing and gently remove tablet; do not push oral disintegrating tablet through foil backing; administer immediately on tongue and oral disintegrating tablet dissolves in seconds; then swallow with saliva; liquid not required. oxyCODONE (ROXICODONE) tablet 5-10 mg 0703 (Given - Pr ovider: Jazmine Mcclure RN)1409 (Given - Provider: Emani Morin LPN)1709 (Given - Provider: Paz Bruno RN) 2053 (Given - Provider: Arlyn Glass RN) 5-10 mg, Oral, EVERY 3 HOURS PRN, other, pain control or improvement in physical function. Hold dose for analgesic side effects., Starting Sun11/18/18 at 1555, Start with the lowest dose. May adjust do se by 5 mg every 3 hours as needed. Noti fy provider to assess for uncontrolled pain or analgesic side effects. Hold while on FALSEWORK BUILDER or with regular IV opioid dosing. polyethylene glycol (MIRALAX/GLYCOLAX) Packet 17 g 17 g, Oral, DAILY PRN, constipation, Sta rting 11/18/18 at 1555, Give in 8oz of water, juice, or soda. Hold for loose stools. This is the second step of a three step constipation treatment. 1 Packet = 17 grams. Mixed prescribed dose in 8 o unces of water. Follow with 8 oz. of water. potassium chloride (KLOR-CON) Packet 20-40 mEq 0810 (G iven - Provider: Nanda Preciado, RN)1002 (Given - Provider: Emani Morin LPN) 20-40 mEq, Oral or Feeding Tube, EVERY 2 HOURS PRN, Starting 11/18/18 at 1555, potassium supplementation, Use if unable to tolerate tablets. If Serum K+ 3.4-4.0, dose = 20 mEq x1. Recheck K+ level t he next AM. If Serum K+ 3.0-3.3, dose = 60 mEq po total dose (40 mEq x 1 followed in 2 hours by 20 mEq X1). Recheck K+ level 4 hours after dose and the next AM. If Serum K+ 2.5-2.9, dose = 80 mEq po tot al dose (40 mEq Q2H x2). Recheck K+ leve l 4 hours after dose and the next AM. If Serum K+ less than 2.5, See IV order. Dissolve packet contents in 4-8 ounces of cold water or juice. potassium chloride 10 mEq in 100 mL intermittent infusion wi th 10 mg lidocaine 10 mEq, Intravenous, Administer over 1 H ours, EVERY 1 HOUR PRN, Starting 11/18/18 at 1555, potassium supplementation, Infuse via PERIPHERAL LINE. Use potassium with lidocaine for pain with periphera l administration. If Serum K+ 3.4-4.0, d ose = 10 mEq/hr x2 doses. Recheck K+ level the next AM. If Serum K+ 3.0-3.3, dose = 10 [...] 10 mEq, Intravenous, Administer over 60 Minutes, EVERY 1 HOUR PRN, Starting 11/18/18 at 1555, potassium supplementation, Infuse via PERIPHERAL LINE or CENTRAL LINE. Use for central line replacement if patient weight less than 65 kg, if pa tient is on TPN with high potassium content or if unit does not stock 20 mEq bags. If Serum K+ 3.4-4.0, dose = 10 mEq/hr x2 doses. Recheck K+ level the next AM. I f Serum K+ 3.0-3.3, dose = 10 mEq/hr x4 doses (40 mEq IV total dose). Recheck K+ level 2 hours after dose and the next AM. If Serum K+ less than 3.0, dose = 10 mEq/hr x6 doses (60 mEq IV total dose). Re check K+ level 2 hours after dose and the next AM. potassium chloride 20 mEq in 50 mL intermittent infusion 20 mEq, Intravenous, Administer over 2 H ours, EVERY 1 HOUR PRN, Starting 11/18/18 at 1555, potassium supplementation, Infuse via CENTRAL LINE Only. May need EKG if less than 65 kg or on TPN - Max ra te is 0.3 mEq/kg/hr for patients not on EKG monitoring. If Serum K+ 3.4-4.0, dose = 20 mEq/hr x1 doses. Recheck K+ level the next AM. If Serum K+ 3.0-3.3, dose = 20 mEq/hr x2 doses (40 mEq IV total dose ). Recheck K+ level 2 hours after dose a nd the next AM. If Serum K+ less than 3.0, dose = 20 mEq/hr x3 doses (60 mEq IV total dose). Recheck K+ level 2 hours after dose and the next AM. potassium chloride ER (K-DUR/KLOR-CON M) CR tablet 20- 40 mEq 0806 (Canceled Entry - Provider: Nanda Preciado RN - Comment: 40) 20-40 mEq, Oral, EVERY 2 HOURS PRN, Star ting 11/18/18 at 1555, potassium supplementation, Use if able to take PO. If Serum K+ 3.4-4.0, dose = 20 mEq x1. Recheck K+ level the next AM. If Serum K+ 3.0 -3.3, dose = 60 mEq po total dose (40 mE q x1 followed in 2 hours by 20 mEq x1). Recheck K+ level 4 hours after dose and the next AM. If Serum K+ 2.5-2.9, dose = 80 mEq po total dose (40 mEq Q2H x2). Rec heck K+ level 4 hours after dose and the next AM. If Serum K+ less than 2.5, See IV order. DO NOT CRUSH potassium phosphate 15 mmol in D5W 250 mL intermittent infusion 15 mmol, Intravenous, Administer over 4 Hours, DAILY PRN, Starting 11/18/18 at 1555, phosphorous supplementation, For serum phosphorus level 2-2.4 Do not infuse Phosphorus in the same line as TPN. G flower 15 mmol and recheck phosphorus level next AM. Each mmol of phosphate provides 1.47 mEq of Potassium. Multiply the patient's phosphate dose by 1.47 to determine the amount of potassium in this dose. potassium phosphate 20 mmol in D5W 250 mL intermittent infusion 20 mmol, Intravenous, Administer over 4 Hours, EVERY 6 HOURS PRN, Starting 11/18/18 at 1555, phosphorous supplementation, For serum phosphorus level 1.1- 1.9 For CENTRAL Line ONLY Do not infuse Phosp horus in the same line as TPN. Give 20 m mol and recheck phosphorus level 2 hours after last dose and next AM. Each mmol of phosphate provides 1.47 mEq of Potassium. Multiply the patient's phosphate dose by 1.47 to determine the amount of potassium in this dose. potassium phosphate 20 mmol in D5W 500 mL intermittent infusion 20 mmol, Intravenous, Administer over 4 Hours, EVERY 6 HOURS PRN, Starting 11/18/18 at 1555, phosphorous supplementation, For serum phosphorus level 1.1- 1.9 For Peripheral Line Do not infuse Phospho zoraida in the same line as TPN. Give 20 mmo l and recheck phosphorus level 2 hours after last dose and next AM. Each mmol of phosphate provides 1.47 mEq of Potassium. Multiply the patient's phosphate dose b y 1.47 to determine the amount of potassium in this dose. potassium phosphate 25 mmol in D5W 500 mL intermittent infusion 25 mmol, Intravenous, Administer over 6 Hours, EVERY 8 HOURS PRN, Starting 11/18/18 at 1555, phosphorous supplementation, For serum phosphorus level less than 1.1 Do not infuse Phosphorus in the haylie e line as TPN. Give 25 mmol and recheck phosphorus level 2 hours after last dose and next AM. Each mmol of phosphate provides 1.47 mEq of Potassium. Multiply the patient's phosphate dose by 1.47 to determine the amount of potassium in this dose. prochlorperazine (COMPAZINE) injection 10 mg(Linked Group 2) 10 mg, Intravenous, EVERY 6 HOURS PRN, n ausea, vomiting, Administer over 1-2 Minutes, Starting 11/18/18 at 1555, This is Step 2 of nausea and vomiting management. Give if nausea not resolved 15 aimee shavonne after giving ondansetron (ZOFRAN). I f nausea not resolved in 15 minutes, go to Step 3 metoclopramide (REGLAN), if ordered. For ordered IV doses 0.1-10 mg, give IV Push undiluted. Each 5mg over 1 minute. prochlorperazine (COMPAZINE) Suppository 25 mg(Linked Group 2) 25 mg, Rectal, EVERY 12 HOURS PRN, nause a, vomiting, Starting 11/18/18 at 1555, This is Step 2 of nausea and vomiting management. Give if nausea not resolved 15 minutes after giving ondansetron (ZOF RAN). If nausea not resolved in 15 minut es, go to Step 3 metoclopramide (REGLAN), if ordered. prochlorperazine (COMPAZINE) tablet 10 mg(Linked Group 2) 10 mg, Oral, EVERY 6 HOURS PRN, vomiting , Starting 11/18/18 at 1555, This is Step 2 of nausea and vomiting management. Give if nausea not resolved 15 minutes after giving ondansetron (ZOFRAN). If na usea not resolved in 15 minutes, go to S tep 3 metoclopramide (REGLAN), if ordered. senna-docusate (SENOKOT-S/PERICOLACE) 8. 6-50 MG per tablet 1 tablet(Linked Group 3) 1 tablet, Oral, 2 TIMES DAILY PRN, const ipation, Starting 11/18/18 at 1555, If no bowel movement in 24 hours, increase to 2 tablets PO. Hold for loose stools. This is the first step of a three step constipation treatment. senna-docusate (SENOKOT-S/PERICOLACE) 8. 6-50 MG per tablet 2 tablet(Linked Group 3) 2 tablet, Oral, 2 TIMES DAILY PRN, const ipation, Starting Sun11/18/18 at 1555, Hold for loose stools. This is the first step of a three step constipation treatment. umeclidinium (INCRUSE ELLIPTA) 62.5 MCG/INH inhaler 1 puff 1 puff, Inhalation, HOLD, currently on s cheduled duonebs - duplicate therapy, Starting Sun11/18/18 at 1603 Linked Groups Order Group 1: ondansetron (ZOFRAN-ODT) ODT tab 4 mgJump to med 4 mg, Oral, EVERY 6 HOURS PRN, nausea, v omiting, Starting Sun11/18/18 at 1555
This is Step 1 of nausea and vomiting management. If nausea not resolved in 15 minutes, go to S tep 2 prochlorperazine (COMPAZINE). Do n ot push through foil backing. Peel back foil and gently remove. Place on tongue immediately. Administration with liquid unnecessary With dry hands, peel back foil backing and gently remove tabl et; do not push oral disintegrating tablet through foil backing; administer immediately on tongue and oral disintegrating tablet dissolves in seconds; then swallow with saliva; liquid not required.
Or ondansetron (ZOFRAN) injection 4 mgJump to med 4 mg, Intravenous, EVERY 6 HOURS PRN, na usea, vomiting, Administer over 2-5 Minutes, Starting Sun11/18/18 at 1555
This is Step 1 of nausea and vomiting management. If nausea not resolved in 15 minutes, go to Step 2 prochlorperazine (COMPAZINE). Irritant. For ordered IV doses 0.1-4 mg, give IV Push undiluted over 2-5 minutes.
Group 2: prochlorperazine (COMPAZINE) injection 10 mgJump to med 10 mg, Intravenous, EVERY 6 HOURS PRN, n ausea, vomiting, Administer over 1-2 Minutes, Starting Sun11/18/18 at 1555
This is Step 2 of nausea and vomiting management. Give if nausea not resolved 15 minutes after giving ondansetron (ZO GEOVANI). If nausea not resolved in 15 minutes, go to Step 3 metoclopramide (REGLAN), if ordered. For ordered IV doses 0.1-10 mg, give IV Push undiluted. Each 5mg over 1 minute.
Or prochlorperazine (COMPAZINE) tablet 10 mgJump to med 10 mg, Oral, EVERY 6 HOURS PRN, vomiting , Starting 11/18/18 at 1555
This is Step 2 of nausea and vomiting management. Give if nausea not resolved 15 minutes after giving ondansetron (ZOFRAN ). If nausea not resolved in 15 min utes, go to Step 3 metoclopramide (REGLAN), if ordered.
Or prochlorperazine (COMPAZINE) Suppository 25 mgJump to med 25 mg, Rectal, EVERY 12 HOURS PRN, nause a, vomiting, Starting 11/18/18 at 1555
This is Step 2 of nausea and vomiting management. Give if nausea not resolved 15 minutes after giving ondanset marito (ZOFRAN). If nausea not resolve d in 15 minutes, go to Step 3 metoclopramide (REGLAN), if ordered.
Group 3: senna-docusate (SENOKOT-S/PERICOLACE) 8.6-50 MG per tablet 1 tabletJump to med 1 tablet, Oral, 2 TIMES DAILY PRN, const ipation, Starting 11/18/18 at 1555
If no bowel movement in 24 hours, increase to 2 tablets PO. Hold for loose stools. This is the first step of a three step constipation treatment.
Or senna-docusate (SENOKOT-S/PERICOLACE) 8.6-50 MG per tablet 2 tabletJump to med 2 tablet, Oral, 2 TIMES DAILY PRN, const ipation, Starting 11/18/18 at 1555
Hold for loose stools. This is the first step of a three step constipation treatment.
documented in this encounter Care Teams [facility] [employer] Relationship Specialty Start Date End Date Sammie Salguero PCP - General 11/05/15 10/25/21 [place] [address] [place] [address] Robyn Almaraz PCP - Assigned PCP 11/17/1811/19 CHANDRIKA Alvarez [facility] [address] [place] [address] Clinic, [facility] Referring Physician 10/16/16 [place] [address] [place] [address] Guru BRITNEY [facility] 10/16/16 Perry Rasmussen MD [address] [place] [address] Jazmin Puentes RN Registered Nurse 10/16/16 1 Jazmine Faye LPN LPN 10/16/16 01/15/[address] [place] [address] Jennifer Redmond, [facility] 02/18/18 02/18/19 [facility] The[facility] [address] [place] [address] Robyn Almaraz Assigned PCP 09/29/18 05/17/19 CHANDRIKA Alvarez [employer] [address] [place] [address] documented as of this encounter
--- OUTSIDE RECORDS SUMMARY | 2022-08-25 14:25 | XMS_ITS | Encounter Summary ---
:1960 Author Organization [place] Address [address] [facility] [place] [address] Care Team Providers Name Role Phone Clinic, [facility] Unavailable [phone] Guru Perry Conrad MD Unavailable + Melissa Waite PA-C Primary Care Provider Reason for Visit Reason Comments Shortness of Breath Auth/Cert Specialty Diagnoses / Procedures Referred By Contact Refer red To Contact Orthopedics Diagnoses Hydropneumothorax Aspiration pneumonia of right lung, unspecified aspiration pneumonia type, unspecified part of lung (H) Aspiration pneumonia of right lung, unspecified aspiration pneumonia type, unspecified part of lung (H) [facility] Hydropneumothorax [address] [place] [address] Phone: Fax: Referral ID Status Reason Start Date Expiration Date Visits Requ ested Visits Authorized [id number] 1 1 Encounter Details Date Type Department Care Team Description 10/26/2021 [facility] Stephani Alvarez MD [facility] [address] [facility] [place] [address] Aspiration pneumonia of right lung, unsp ecified aspiration pneumonia type, unspecified part of lung (H); - Encounter [facility] Zion Le MD [address] [place] [address] Hydropneumothorax 10/28/2021 Spine [address] [place] [id number] Social History Tobacco Use Types Packs/Day Years Used Date Current Every Day Smoker 1 28 Alcohol Use Standard Drinks/Week Comments Yes 1.7 (1 standard drink = 0.6 oz pure alco hol) Sex Assigned at Date Recorded Not on file COVID-19 Exposure Response Date Recorded In the last month, have you been in contact with No / Unsure 10/26/2021 9:56 AM 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 documented as of this encounter Last Filed Vital Signs Vital Sign Reading Time Taken Comments Blood Pressure 114/72 10/28/2021 8:16 AM MILL ROLL OPERATOR Pulse 76 10/28/2021 8:16 AM MILL ROLL OPERATOR Temperature 36.8 ??C (98.2 ??F) 10/28/2021 8:16 AM MILL ROLL OPERATOR Respiratory Rate 18 10/28/2021 8:16 AM MILL ROLL OPERATOR Oxygen Saturation 93% 10/28/2021 8:16 AM MILL ROLL OPERATOR Inhaled Oxygen Concentration - - Weight 44.4 kg (97 lb 14.4 oz) 10/27/2021 8:39 AM MILL ROLL OPERATOR Height 172.7 cm (5' 8) 10/26/2021 5:31 PM MILL ROLL OPERATOR Body Mass Index 14.89 10/26/2021 5:31 PM MILL ROLL OPERATOR documented in this encounter Discharge Summaries Manjit Woodward DO - 10/28/2021 11:21 AM CST Hospitalist Discharge Summary [facility] Hay Gutierrez Date of : 1960 Age: [age] year old Date of Admission: 10/26/2021 Date of Discharge: 10/28/2021 11:21 AM Admitting Physician: Juan Mistry MD Discharge Physician: Manjit Woodward DO Discharging Service: Hospitalist Primary Provider: Melissa Waite Discharge Diagnosis: Acute hypoxic respiratory failure Right hydropneumothorax Aspiration pneumonia Chronic pancreatitis Hypokalemia Pulmonary nodule Gastric wall thickening Severe malnutrition Colonic wall thickening COPD Hypertension Discharge Disposition: Discharged to home Allergies: No Known Allergies Discharge Medications: Discharge Medication List as of 10/28/2021 10:15 AM START taking these medications Details amoxicillin-clavulanate (AUGMENTIN) 875-125 MG tablet Take 1 tablet by mouth 2 times daily for 7 days, Disp-14 tablet, R-0, E-Prescribe oxyCODONE (ROXICODONE) 5 MG tablet Take 1 tablet (5 mg) by mouth every 6 hours as needed for pain, Disp-12 tablet, R-0, Local Print CONTINUE these medications which have NOT CHANGED Details albuterol (PROAIR HFA/PROVENTIL HFA/VENTOLIN HFA) 108 (90 Base) MCG/ACT inhaler Inhale 2 puffs into the lungs every 6 hours as needed for shortness of breath / dyspnea or wheezing, Historical aspirin (ASA) 325 MG EC tablet Take 325 mg by mouth daily , Historical atenolol (TENORMIN) 25 MG tablet Take 25 mg by mouth daily (with dinner) , Historical Ynytevnzxsk-Kxfyomfbr-Gbmypqfxjp (TRELEGY ELLIPTA) 100-62.5-25 MCG/INH oral inhaler Inhale 1 puff into the lungs At Bedtime, Historical lisinopril (ZESTRIL) 20 MG tablet Take 20 mg by mouth daily (with dinner) , Historical multivitamin w/minerals (THERA-VIT-M) tablet Take 1 tablet by mouth daily, OTC tamsulosin (FLOMAX) 0.4 MG capsule Take 0.4 mg by mouth At Bedtime, Historical STOP taking these medications fluticasone - vilanterol (BREO ELLIPTA) 100-25 MCG/INH oral inhaler Comments: Reason for Stopping: umeclidinium bromide (INCRUSE ELLIPTA) 62.5 MCG/INH inhalation capsule Comments: Reason for Stopping: Condition on Discharge: Discharge condition: Stable Discharge vitals: Blood pressure 114/72, pulse 76, temperature 98.2 ??F (36.8 ??C), temperature source Tympanic, resp. rate 18, height 1.727 m (5' 8), weight 44.4 kg (97 lb 14.4 oz), SpO2 93 %. Code status on discharge: Full Code BASIC PHYSICAL EXAMINATION: GENERAL: No apparent distress. CARDIOVASCULAR: Regular rate and rhythm without murmurs. PULMONARY: Clear to auscultation bilaterally. GASTROINTESTINAL: Abdomen soft, non-tender. EXTREMITIES: No edema, pulses intact. NEUROLOGIC: No focal deficits. History of Illness: See detailed admission note for full details. Procedures excluding imaging which is summarized below: Please see details in the electronic medical record. Consultations: THORACIC SURGERY IP CONSULT NUTRITION SERVICES ADULT IP CONSULT WOUND OSTOMY CONTINENCE NURSE IP CONSULT PHYSICAL THERAPY ADULT IP CONSULT OCCUPATIONAL THERAPY ADULT IP CONSULT SOCIAL WORK IP CONSULT CARE MANAGEMENT / SOCIAL WORK IP CONSULT Significant Results: Results for orders placed or performed during the hospital encounter of 10/26/21 XR Chest Port 1 View Narrative CHEST PORTABLE ONE VIEW 10/26/2021 10:32 AM HISTORY: SOB, reported collapsed lung on outpatient CT last week. COMPARISON: Chest x-ray on 04/16/2020. Impression IMPRESSION: AP view chest was obtained. Cardiomediastinal silhouette is within normal limits. Small to moderate volume right pleural effusion and associated basilar atelectasis/consolidation. No significant left pleural effusion. No significant pneumothorax. High lung volumes, likely due to underlying COPD changes. Multiple old rib fractures. CLAIR CUEVA MD CT Chest w Contrast Narrative CT CHEST W CONTRAST 10/26/2021 12:34 PM HISTORY: Respiratory illness, nondiagnostic x-ray. Outside CT with right hydropneumothorax, and probable abscess within the right middle lobe, seen on outpatient CT scan last week, unable to obtain images. TECHNIQUE: Scans obtained from the apices through the diaphragm with IV contrast. 50 mL Isovue-370 IV injected. Radiation dose for this scan was reduced using automated exposure control, adjustment of the mA and/or kV according to patient size, or iterative reconstruction technique. COMPARISON: Chest x-ray on same day earlier. FINDINGS: Chest/mediastinum: No cardiomegaly or significant pericardial effusion. Extensive atherosclerotic vascular calcification of the coronary arteries and thoracic aorta. No significant mediastinal, hilar or axillary lymphadenopathy. Lungs and pleura: Small to moderate right pleural effusion and associated basilar atelectasis/consolidation. Extensive upper lobe predominant emphysematous changes. Small right apical predominant pneumothorax. No left pneumothorax. No left pleural effusion. There is 7 mm right apical nodule (series 5 image 71). Frothy debris versus mucoid impaction in the right lower and middle lobe bronchi, suggesting possible aspiration. Upper abdomen: Limited evaluation of upper abdomen due to lack of coverage. Extensive pancreatic parenchymal calcification, likely related to a history of chronic pancreatitis. Small amount of free fluid in the upper abdomen of indeterminate etiology. Bones and soft tissue: Multilevel degenerative changes of the spine. Multiple old rib fractures. Impression IMPRESSION: 1. Small right apical predominant pneumothorax. 2. Small to moderate right pleural effusion and associated basilar atelectasis/consolidation. 3. Extensive upper lobes predominant emphysematous changes. 4. 7 mm right upper lobe pulmonary nodule, as per Fleischner society criteria, recommend follow-up exam in 6 months to assess for interval change. 5. Frothy debris versus mucoid impaction in the right lower and middle lobes bronchi, suggesting possible aspiration. 6. Extensive pancreatic parenchymal calcification, likely related to history of chronic pancreatitis. 7. Small amount of free fluid in the upper abdomen of undetermined etiology. CLAIR CUEVA MD CT Abdomen Pelvis w Contrast Narrative CT ABDOMEN AND PELVIS WITH CONTRAST 10/26/2021 1:50 PM HISTORY: Epigastric pain. Chronic pancreatitis, free fluid seen on chest CT. TECHNIQUE: CT abdomen and pelvis with 50 mL Isovue-370 IV. Radiation dose for this scan was reduced using automated exposure control, adjustment of the mA and/or kV according to patient size, or iterative reconstruction technique. COMPARISON: Chest CT on same day earlier and CT abdomen and pelvis on 04/16/2020. FINDINGS: Lower chest: Moderate right pleural effusion and associated basilar atelectasis/consolidation. Small right pneumothorax better seen on same day chest CT. Abdomen/pelvis: Hepatobiliary: No suspicious focal hepatic lesion. Diffuse mural enhancement of the gallbladder of indeterminate etiology. Pancreas: Diffuse pancreatic parenchymal calcification, likely related to history of chronic pancreatitis. No definite solid pancreatic mass visualized on this single-phase CT. Spleen: No splenomegaly. Adrenal glands: Diffuse thickening without discrete nodularity of the left adrenal gland. No right adrenal nodule. Kidneys: Contrast within the renal collecting system, precludes detailed evaluation for kidney stones. Bowel: Diffuse gastric wall thickening predominantly of the distal stomach, of indeterminate etiology. Mild diffuse colonic wall thickening, of indeterminate etiology, could be due to underlying colitis. Peritoneum: Small amount of free fluid in the upper abdomen and pelvis. Pelvic organs: The prostate gland is enlarged measuring approximately 5.2 cm in transverse diameter. Vascular: Extensive atherosclerotic vascular calcification of the abdominal aorta and iliac vessels. Lymph nodes: Multiple prominent but not significantly enlarged abdominopelvic lymph nodes, indeterminate, could be reactive. Bones and soft tissue: No suspicious osseous lesion. Impression IMPRESSION: 1. Extensive pancreatic parenchymal calcification, likely related to history of chronic pancreatitis. 2. Small amount of free fluid in the upper abdomen and pelvis, of indeterminate etiology. 3. Significant gastric wall thickening predominantly of the distal stomach, can be seen with acute gastritis versus less likely gastric malignancy, recommend further evaluation with upper endoscopy. 4. Diffuse colonic wall thickening, nonspecific, can be seen with diffuse colitis. 5. Mild diffuse mucosal enhancement of the gallbladder, of indeterminate etiology, can be further evaluated with right upper quadrant abdominal ultrasound if clinically warranted. CLAIR CUEVA MD XR Chest 2 Views Narrative CHEST TWO VIEWS 10/27/2021 10:04 AM HISTORY: Right hydropneumothorax on CT. Status post chest tube placement. COMPARISON: 10/26/2021 FINDINGS: Right basilar chest tube has nearly completely evacuated pleural fluid, but there is a small amount of pleural air at the right lung base, suggestive of trapped lung. No pneumothorax or pleural effusion on the left. Impression IMPRESSION: Small right basilar pneumothorax with indwelling chest tube. FEDE DORSEY MD XR Chest 2 Views Narrative XR CHEST 2 VW 10/27/2021 4:32 PM INDICATION: post pull chest tube COMPARISON: 10/27/2021 at 0952 hours Impression IMPRESSION: Small right-sided pneumothorax loculated at the right lung base has not appreciably changed in size, status post removal of right chest tube. However, a tiny right apical pneumothorax is now visible. Small amount of pleural fluid on the right as well. Scattered strands of scarring or fibrosis in each lung are stable. Multiple old, healed left rib fractures. JUANY JUDGE MD SYSTEM ID: [id number] Transthoracic Echocardiogram Results: No results found for this or any previous visit (from the past 4320 hour(s)). Pending Results: Unresulted Labs Ordered in the Past 30 Days of this Admission Date and Time Order Name Status Description 10/26/2021 2:31 PM Pleural fluid Aerobic Bacterial Culture Routine with Gram Stain Preliminary 10/26/2021 11:03 AM Blood Culture Peripheral Blood Preliminary 10/26/2021 10:57 AM Blood Culture Peripheral Blood Preliminary Discharge Instructions and Follow-Up: Discharge instructions and follow-up: Discharge Procedure Orders Follow-up and recommended labs and tests Order Comments: Follow up with primary care provider, Melissa Waite, within 7 days for hospital follow- up. The following labs/tests are recommended: SAI US. Would recommend further work-up on liver disease as an outpatient. Fluid is likely to re-accumulate, will probably need as needed thoracentesis in the future. Continue outpatient lung cancer screening. Counseled to quit smoking. The patient was provided with a limited supply of oral narcotic medication, as it was indicated by their medical condition. The patient was instructed not to take the pain medication above the prescribed dose and frequency due to the potential for addiction, respiratory depression, and even . Thepatient expressed understanding of these instructions, is willing to accept these inherent risks, and verbally contracted not to misuse the medication. Activity Order Comments: Your activity upon discharge: activity as tolerated and no driving while on analgesics Order Specific Question Answer Comments Is discharge order? Yes Full Code Order Specific Question Answer Comments Code status determined by: Discussion with patient/ legal decision maker Diet Order Comments: Follow this diet upon discharge: Orders Placed This Encounter Regular Diet Adult Order Specific Question Answer Comments Is discharge order? Yes Hospital Course: Hay Gutierrez is a 61 year old male with a history of alcohol use disorder in remission, COPD, chronic pancreatitis, stroke, and hypertension admitted on 10/26/2021 with shortness of breath. ?? He was seen initially at [facility] for pulmonary nodule surveillance and had repeat CT showing moderate hydropneumothorax with almost total collapse of the right lower lobe and probable abscess versus localized fluid within the right middle lobe with adjacent consolidative airspace disease with consideration of aspiration pneumonia with abscess. He was transferred to [facility] for further evaluation. ?? CT was repeated showing small pneumothorax, pleural effusion and concern for aspiration pneumonia. Thoracic surgery was contacted and recommended IR chest tube insertion which was done on 10/26. He was started on Unasyn and admitted for further management. Thoracic surgery was consulted and remove the chest tube yesterday. Lungs expanded and the tube would be a source of further infection. He will transition to Augmentin for possible aspiration pneumonia. Fluid studies are not supportive of infection. There is concern for possible hepatic hydrothorax. Patient also has a low albumin state and a trapped lung and he will likely continue to reaccumulate fluid. He should pursue outpatient work-up for possible cirrhosis and continue lung nodule surveillance. I have also recommended to him that he proceed with EGD and colonoscopy. ?? Problem List: 1. Acute hypoxic respiratory failure secondary to right hydropneumothorax with possible aspiration pneumonia and/or pulmonary abscess: IR successfully place chest tube on 10/26. Symptoms now improved. Effusion is exudative by definition. No evidence of infection of the pleural fluid. He will transitionfrom Unasyn to Augmentin for possible aspiration pneumonia. We will also need to follow-up cytology which is currently pending. Thoracic surgery consulted for chest tube management and tube was removedyesterday. Currently feels well and not hypoxic. Concern for possible hydropneumothorax and outpatient work-up for cirrhosis is recommended. Expectation is that this fluid will continue to accumulate and he will likely require periodic thoracenteses in the future. He was also instructed he will require further work-up of his pulmonary nodule as well as EGD for gastric wall thickening and colonoscopy for colon wall thickening. 2. Chronic pancreatitis: Minimal elevation in lipase but no abdominal pain. CT continues to show extensive pancreatic parenchymal calcification. No significant abdominal pain. 3. Pulmonary nodule: 7 mm in the right upper lobe. Follow-up pleural fluid cytology. Nodule requiresongoing surveillance. 4. Gastric wall thickening: Could have gastritis versus likely actually malignancy. Needs outpatientEGD. Was on Protonix, will hold on discharge given no symptoms concerning for GERD. Can always be restarted as an outpatient. 5. Severe malnutrition: Somewhat chronic in nature, he only weighs 97 pounds. Could be due to prior alcoholism, COPD, and potential unidentified malignancy. 6. Colonic wall thickening: Outpatient colonoscopy warranted. 7. COPD: Continue prior to admission inhalers. Follows with Dr. Weeks as an outpatient. No exacerbation appreciated. 8. Hypertension: Blood pressure stable. Continue prior to admission atenolol and lisinopril. The patient was seen, examined, and counseled on this day. The hospitalization and plan of care was reviewed with the patient extensively. All questions were addressed and the patient agreed to follow-up as noted above. Total time spent in face to face contact with the patient and coordinating discharge was: 35 Minutes Manjit Woodward DO, M[facility] [place]ist [place] [address] 10/28/2021 ROLL OPERATOR documented in this encounter Medications at Time of Discharge Medication Sig Dispensed Refills Start Date End Date albuterol (PROAIR Inhale 2 puffs 0 HFA/PROVENTIL HFA/VENTOLIN into the lungs HFA) 108 (90 Base) MCG/ACT every 6 hours as inhaler needed for shortness of breath / dyspnea or wheezing aspirin (ASA) 325 MG EC Take 325 mg by 0 tablet mouth daily atenolol (TENORMIN) 25 MG Take 25 mg by 0 tablet mouth daily (with dinner) Gnlyldznvpw-Oqkjevirv-Zywfx Inhale 1 puff into 0 terol (TRELEGY ELLIPTA) the lungs At 100-62.5-25 MCG/INH oral Bedtime inhaler lisinopril (ZESTRIL) 20 MG Take 20 mg by 0 tablet mouth daily (with dinner) multivitamin w/minerals Take 1 tablet by 0 2019 (THERA-VIT-M) mouth daily tabletIndications: Alcohol-induced acute pancreatitis without infection or necrosis tamsulosin (FLOMAX) 0.4 MG Take 0.4 mg by 0 capsule mouth At Bedtime amoxicillin-clavulanate Take 1 tablet by 14 tablet 0 202011/04/2021 (AUGMENTIN) 875-125 MG mouth 2 times tabletIndications: daily for 7 days Hydropneumothorax oxyCODONE (ROXICODONE) 5 MG Take 1 tablet (5 12 tablet 0 10/31/2021 tabletIndications: mg) by mouth every Hydropneumothorax 6 hours as needed for pain documented as of this encounter Progress Notes Sheila Noble, KRISTI - 10/27/2021 11:58 AM CST 10/27/21 1113 Quick Adds Type of Visit Initial Occupational Therapy Evaluation Living Environment People in home child(allyson), adult;spouse Current Living Arrangements house Living Environment [place] and adult children. bed/bathroom on main level. has tub shower and walk in shower with grab bars and seat. standard height toilets Self-Care Usual Activity Tolerance moderate Current Activity Tolerance fair Equipment Currently Used at Home cane, straight;grab bar, tub/shower;wheelchair, manual;hospital bed;walker, rolling Activity/Exercise/Self-Care Comment reports use of shower chair but ususally likes to take a bath. dresses and toilets self indp. reports mod I with ADL and mobility at baseline with use of cane Instrumental Activities of Daily Living (IADL) IADL Comments pt reports adult children can assist at discharge but typically indep. drives Disability/Function Hearing Difficulty or Deaf no Wear Glasses or Blind yes Vision Management reading glasses Fall history within last six months yes Number of times patient has fallen within last six months 1 General Information Onset of Illness/Injury or Date of Surgery 10/26/21 Referring Physician Zion Mijares MD Patient/Family Therapy Goal Statement (OT) to get better Additional Occupational Profile Info/Pertinent History of Current Problem Per chart: Hay Gomez a 61 year old male with a history of alcohol use disorder in remission, COPD, chronic pancreatitis, stroke, and hypertension admitted on 10/26/2021 with shortness of breath. Existing Precautions/Restrictions fall (chest tube ) Left Upper Extremity (Weight-bearing Status) full weight-bearing (FWB) Right Upper Extremity (Weight-bearing Status) full weight-bearing (FWB) Left Lower Extremity (Weight-bearing Status) full weight-bearing (FWB) Right Lower Extremity (Weight-bearing Status) full weight-bearing (FWB) General Observations and Info agreeable to OT Cognitive Status Examination Orientation Status orientation to person, place and time Affect/Mental Status (Cognitive) WNL Follows Commands WNL Cognitive Status Comments very pleasant. able to describe hospital couse and cares Visual Perception Visual Impairment/Limitations corrective lenses for reading Sensory Sensory Comments reports numbness and tingling in fingers and hands at baseline 2/2 smoking Pain Assessment Patient Currently in Pain Yes, see Vital Sign flowsheet Posture Posture forward head position;protracted shoulders Range of Motion Comprehensive General Range of Motion bilateral upper extremity ROM WFL Strength Comprehensive (MMT) Comment, General Manual Muscle Testing (MMT) Assessment generalized deconditioning and weakness. limited in strength about 3/5 grossly Coordination Upper Extremity Coordination No deficits were identified Transfers Transfer Comments refused at time of eval Activities of Daily Living BADL Assessment grooming;upper body dressing Upper Body Dressing Assessment [place] Level (Upper Body Dressing) minimum assist (75% patient effort) Position (Upper Body Dressing) long sitting Comment (Upper Body Dressing) chest tube mgmt Grooming Assessment [place] Level (Grooming) set up Position (Grooming) long sitting Comment (Grooming) grooming/hygiene Clinical Impression Criteria for Skilled Therapeutic Interventions Met (OT) yes;meets criteria;skilled treatment is necessary OT Diagnosis decreased function and safety in ADL OT Problem List-Impairments impacting ADL problems related to;activity tolerance impaired;flexibility;mobility;strength;pain;sensation Assessment of Occupational Performance 3-5 Performance Deficits Identified Performance Deficits bathing, driving, dressing, mobility, toileting, home mgmt Planned Therapy Interventions (OT) ADL retraining;IADL retraining;bed mobility training;strengthening;progressive activity/exercise;home program guidelines Clinical Decision Making Complexity (OT) low complexity Therapy Frequency (OT) Daily Predicted Duration of Therapy 4-5 days Risk & Benefits of therapy have been explained evaluation/treatment results reviewed;care plan/treatment goals reviewed;risks/benefits reviewed;current/potential barriers reviewed;participants voiced agreement with care plan;participants included;patient Comment-Clinical Impression decreased safety and function with ADL and mobility warrants skilled IP OT tx OT Discharge Planning OT Discharge Recommendation (DC Rec) Transitional Care Facility;home with home care occupational therapy;Home with assist OT Rationale for DC Rec pt below baseline function in self care and ADL at this time. requires IP OT. at discharge would benefit from TCU stay to increase independence and safety prior to return to home. if returns to home would benefit from HH OT as it would take taxing effort in order to leave the home. currently would recommend A of 1 for all mobility with fWW and ADL Total Evaluation Time (Minutes) Total Evaluation Time (Minutes) 15 Coping Strategies Trust Relationship/Rapport questions answered;questions encouraged;care explained ROLL OPERATOR Manjit Woodward DO - 10/27/2021 11:16 AM CST [facility] Hospitalist Progress Note Name: Hay Gutierrez Provider: Manjit Woodward DO, MPH Date of Service: 10/27/2021 Summary of Stay: Hay Gutierrez is a 61 year old male with a history of alcohol use disorder in remission, COPD, chronic pancreatitis, stroke, and hypertension admitted on 10/26/2021 with shortness of breath. He was seen initially at [facility] for pulmonary nodule surveillance and had repeat CT showing moderate hydropneumothorax with almost total collapse of the right lower lobe and probable abscess versus localized fluid within the right middle lobe with adjacent consolidative airspace disease with consideration of aspiration pneumonia with abscess. He was transferred to [facility] for further evaluation. CT was repeated showing small pneumothorax, pleural effusion and concern for aspiration pneumonia. Thoracic surgery was contacted and recommended IR chest tube insertion which was done on 10/26. He was started on Unasyn and admitted for further management. Problem List: 1. Acute hypoxic respiratory failure secondary to right hydropneumothorax with possible aspiration pneumonia and/or pulmonary abscess: IR successfully place chest tube on 10/26. Symptoms now improved. Effusion is exudative by definition. Possible parapneumonic vs malignant effusion. We will continue Unasyn and follow-up cultures. We will also need to follow-up cytology which is currently pending. Thoracic surgery consulted for chest tube management. 2. Chronic pancreatitis: Minimal elevation in lipase but no abdominal pain. CT continues to show extensive pancreatic parenchymal calcification. 3. Pulmonary nodule: 7 mm in the right upper lobe. Follow-up pleural fluid cytology. Nodule requiresongoing surveillance. 4. Gastric wall thickening: Could have gastritis versus likely actually malignancy. Needs outpatientEGD. Continue Protonix. 5. Severe malnutrition: Somewhat chronic in nature. Could be due to prior alcoholism, COPD, and potential unidentified malignancy. 6. Colonic wall thickening: Outpatient colonoscopy warranted. Monitor stools. 7. COPD: Continue prior to admission inhalers. Follows with Dr. Weeks as an outpatient. No exacerbation appreciated. 8. Hypertension: Blood pressure stable. Continue prior to admission atenolol and lisinopril. DVT Prophylaxis: Pneumatic Compression Devices Code Status: Full Code Diet: Regular Diet Adult [place] Catheter: Not present Disposition: Expected discharge in 3-4 days to home. Goals prior to discharge include manage chest tube. Incidental Findings: As above. Family updated today: No Interval History Assumed care from previous hospitalist. The history was fully reviewed. The patient reports doing well. No chest pain or shortness of breath. No nausea, vomiting, diarrhea,constipation. No fevers. No other specific complaints identified. -Data reviewed today: I personally reviewed all new labs and imaging results over the last 24 hours. Physical Exam Temp: 98.7 ??F (37.1 ??C) Temp src: Temporal BP: 127/79 Pulse: 76 Resp: 20 SpO2: 95 % O2 Device: None (Room air) Oxygen Delivery: 2 LPM Vitals: 10/26/21 1700 10/27/21 0839 Weight: 42.5 kg (93 lb 12.8 oz) 44.4 kg (97 lb 14.4 oz) Vital Signs with Ranges Temp: [97.7 ??F (36.5 ??C)-98.7 ??F (37.1 ??C)] 98.7 ??F (37.1 ??C) Pulse: [71-120] 76 Resp: [14-25] 20 BP: (127-167)/(70-99) 127/79 SpO2: [89 %-98 %] 95 % I/O last 3 completed shifts: In: 685 [P.O.:585; I.V.:100] Out: 2015 [Urine:925; Chest Tube:1090] GENERAL: No apparent distress. Awake, alert, and fully oriented. HEENT: Normocephalic, atraumatic. Extraocular movements intact. CARDIOVASCULAR: Regular rate and rhythm without murmurs or rubs. No S3. PULMONARY: Clear bilaterally. CT placed. GASTROINTESTINAL: Soft, non-tender, non-distended. Bowel sounds normoactive. EXTREMITIES: No cyanosis or clubbing. No edema. NEUROLOGICAL: CN 2-12 grossly intact, no focal neurological deficits. DERMATOLOGICAL: No rash, ulcer, bruising, nor jaundice. Medications ??? ampicillin-sulbactam (UNASYN) IV 3 g Intravenous Q6H ??? aspirin 325 mg Oral Daily ??? atenolol 25 mg Oral Daily with supper ??? fluticasone-vilanterol 1 puff Inhalation Daily ??? lisinopril 20 mg Oral Daily with supper ??? multivitamin w/minerals 1 tablet Oral Daily ??? nicotine 1 patch Transdermal Daily ??? nicotine Transdermal Q8H ??? sodium chloride (PF) 3 mL Intracatheter Q8H ??? umeclidinium 1 puff Inhalation Daily Data Laboratory: Recent Labs Lab 10/27/21 0625 10/26/21 1005 WBC 7.8 8.0 HGB 9.7* 11.5* HCT 31.0* 34.7* MCV 99 100 PLT 263 298 Recent Labs Lab 10/27/21 0625 10/26/21 1830 10/26/21 1115 10/26/21 1005 NA 139 -- -- 141 POTASSIUM 3.1* 3.5 -- 3.4 CHLORIDE 111* -- -- 110* CO2 24 -- -- 25 ANIONGAP 4 -- -- 6 GLC 74 -- -- 208* BUN 7 -- -- 9 CR 0.70 -- 0.5* 0.56* GFRESTIMATED >90 -- >60 >90 TRAY 7.7* -- -- 8.2* No results for input(s): CULT in the last 168 hours. Imaging: Recent Results (from the past 24 hour(s)) CT Chest w Contrast Narrative CT CHEST W CONTRAST 10/26/2021 12:34 PM HISTORY: Respiratory illness, nondiagnostic x-ray. Outside CT with right hydropneumothorax, and probable abscess within the right middle lobe, seen on outpatient CT scan last week, unable to obtain images. TECHNIQUE: Scans obtained from the apices through the diaphragm with IV contrast. 50 mL Isovue-370 IV injected. Radiation dose for this scan was reduced using automated exposure control, adjustment of the mA and/or kV according to patient size, or iterative reconstruction technique. COMPARISON: Chest x-ray on same day earlier. FINDINGS: Chest/mediastinum: No cardiomegaly or significant pericardial effusion. Extensive atherosclerotic vascular calcification of the coronary arteries and thoracic aorta. No significant mediastinal, hilar or axillary lymphadenopathy. Lungs and pleura: Small to moderate right pleural effusion and associated basilar atelectasis/consolidation. Extensive upper lobe predominant emphysematous changes. Small right apical predominant pneumothorax. No left pneumothorax. No left pleural effusion. There is 7 mm right apical nodule (series 5 image 71). Frothy debris versus mucoid impaction in the right lower and middle lobe bronchi, suggesting possible aspiration. Upper abdomen: Limited evaluation of upper abdomen due to lack of coverage. Extensive pancreatic parenchymal calcification, likely related to a history of chronic pancreatitis. Small amount of free fluid in the upper abdomen of indeterminate etiology. Bones and soft tissue: Multilevel degenerative changes of the spine. Multiple old rib fractures. Impression IMPRESSION: 1. Small right apical predominant pneumothorax. 2. Small to moderate right pleural effusion and associated basilar atelectasis/consolidation. 3. Extensive upper lobes predominant emphysematous changes. 4. 7 mm right upper lobe pulmonary nodule, as per Fleischner society criteria, recommend follow-up exam in 6 months to assess for interval change. 5. Frothy debris versus mucoid impaction in the right lower and middle lobes bronchi, suggesting possible aspiration. 6. Extensive pancreatic parenchymal calcification, likely related to history of chronic pancreatitis. 7. Small amount of free fluid in the upper abdomen of undetermined etiology. CLAIR CUEVA MD CT Abdomen Pelvis w Contrast Narrative CT ABDOMEN AND PELVIS WITH CONTRAST 10/26/2021 1:50 PM HISTORY: Epigastric pain. Chronic pancreatitis, free fluid seen on chest CT. TECHNIQUE: CT abdomen and pelvis with 50 mL Isovue-370 IV. Radiation dose for this scan was reduced using automated exposure control, adjustment of the mA and/or kV according to patient size, or iterative reconstruction technique. COMPARISON: Chest CT on same day earlier and CT abdomen and pelvis on 04/16/2020. FINDINGS: Lower chest: Moderate right pleural effusion and associated basilar atelectasis/consolidation. Small right pneumothorax better seen on same day chest CT. Abdomen/pelvis: Hepatobiliary: No suspicious focal hepatic lesion. Diffuse mural enhancement of the gallbladder of indeterminate etiology. Pancreas: Diffuse pancreatic parenchymal calcification, likely related to history of chronic pancreatitis. No definite solid pancreatic mass visualized on this single-phase CT. Spleen: No splenomegaly. Adrenal glands: Diffuse thickening without discrete nodularity of the left adrenal gland. No right adrenal nodule. Kidneys: Contrast within the renal collecting system, precludes detailed evaluation for kidney stones. Bowel: Diffuse gastric wall thickening predominantly of the distal stomach, of indeterminate etiology. Mild diffuse colonic wall thickening, of indeterminate etiology, could be due to underlying colitis. Peritoneum: Small amount of free fluid in the upper abdomen and pelvis. Pelvic organs: The prostate gland is enlarged measuring approximately 5.2 cm in transverse diameter. Vascular: Extensive atherosclerotic vascular calcification of the abdominal aorta and iliac vessels. Lymph nodes: Multiple prominent but not significantly enlarged abdominopelvic lymph nodes, indeterminate, could be reactive. Bones and soft tissue: No suspicious osseous lesion. Impression IMPRESSION: 1. Extensive pancreatic parenchymal calcification, likely related to history of chronic pancreatitis. 2. Small amount of free fluid in the upper abdomen and pelvis, of indeterminate etiology. 3. Significant gastric wall thickening predominantly of the distal stomach, can be seen with acute gastritis versus less likely gastric malignancy, recommend further evaluation with upper endoscopy. 4. Diffuse colonic wall thickening, nonspecific, can be seen with diffuse colitis. 5. Mild diffuse mucosal enhancement of the gallbladder, of indeterminate etiology, can be further evaluated with right upper quadrant abdominal ultrasound if clinically warranted. CLAIR CUEVA MD XR Chest 2 Views Narrative CHEST TWO VIEWS 10/27/2021 10:04 AM HISTORY: Right hydropneumothorax on CT. Status post chest tube placement. COMPARISON: 10/26/2021 FINDINGS: Right basilar chest tube has nearly completely evacuated pleural fluid, but there is a small amount of pleural air at the right lung base, suggestive of trapped lung. No pneumothorax or pleural effusion on the left. Impression IMPRESSION: Small right basilar pneumothorax with indwelling chest tube. FEDE DORSEY MD Manjit Woodward DO MPH [facility] Hospitalist [facility] [place] [address] 10/27/2021 ROLL OPERATOR Dimas Rawls, PT - 10/27/2021 10:07 AM CST 10/27/21 0824 Quick Adds Type of Visit Initial PT Evaluation Living Environment Living Environment Comments Pt lives in a hobby farm rambler with and 2 sons. 3 VIDHI, with B handrail. Bed/bath on main level. Use of SEC all the time for some balance support. Self-Care Usual Activity Tolerance moderate Current Activity Tolerance moderate Equipment Currently Used at Home cane, straight;grab bar, tub/shower;wheelchair, manual;hospital bed;walker, rolling Disability/Function Fall history within last six months yes Number of times patient has fallen within last six months 1 General Information Onset of Illness/Injury or Date of Surgery 10/26/21 Referring Physician Zion Mijares MD Patient/Family Therapy Goals Statement (PT) to return home, increase mobility Pertinent History of Current Problem (include personal factors and/or comorbidities that impact the POC) Pt is a 61 year old male with a significant past medical history of alcohol use disorder , COPD , Chronic pancreatitis , CVA and HTN who presents with Shortness of breath and abnormal CT chest (concern for hydropneumothorax)completed at [facility] on 10/20/2021 done for pulmonarynodule surveillance. Pt is s/p thoracentesis and chest tube placement. Existing Precautions/Restrictions fall (chest tube) Weight-Bearing Status - LLE full weight-bearing Weight-Bearing Status - RLE full weight-bearing Cognition Orientation Status (Cognition) oriented x 4 Affect/Mental Status (Cognition) WFL Follows Commands (Cognition) WFL Safety Deficit (Cognition) minimal deficit Pain Assessment Patient Currently in Pain Yes, see Vital Sign flowsheet Posture Posture Protracted shoulders;Forward head position Range of Motion (ROM) ROM Comment B LE WFL Strength Strength Comments functionally demonstratd >3/5 strength Bed Mobility Comment (Bed Mobility) SBA supine to sit Transfers Transfer Safety Comments CGA sit <> stand with SEC Gait/Stairs (Locomotion) Pattern (Gait) step-to Deviations/Abnormal Patterns (Gait) base of support, wide;gait speed decreased;weight shifting decreased Comment (Gait/Stairs) CGA with SEC Balance Balance Comments good sitting balance; fair standing balance with SEC Clinical Impression Criteria for Skilled Therapeutic Intervention yes, treatment indicated PT Diagnosis (PT) impaired functional mobility Influenced by the following impairments decreased balance Functional limitations due to impairments impaired bed mobility, transfers, ambulation, stairs Clinical Presentation Stable/Uncomplicated Clinical Presentation Rationale Pmhx, good supportive environment Clinical Decision Making (Complexity) low complexity Therapy Frequency (PT) Daily Predicted Duration of Therapy Intervention (days/wks) 3 days Planned Therapy Interventions (PT) balance training;bed mobility training;gait training;home exercise program;patient/family education;stair training;strengthening Anticipated Equipment Needs at Discharge (PT) walker, rolling;shower chair Risk & Benefits of therapy have been explained evaluation/treatment results reviewed;care plan/treatment goals reviewed;risks/benefits reviewed;current/potential barriers reviewed;participants voiced agreement with care plan;participants included;patient PT Discharge Planning PT Discharge Recommendation (DC Rec) Transitional Care Facility;home with home care physical therapy;home with assist PT Rationale for DC Rec Patient is below baseline level of mobility, would benefit from continued rehab in TCU setting. Pt refusing placement. Pt does have support at home, lives with x2 sons in their 20s and his spouse. Would benefit from HHPT to progress ind with mobility and use of FWW with all mobility. PT Brief overview of current status Ax1 with FWW Total Evaluation Time Total Evaluation Time (Minutes) 4 ROLL OPERATOR Caridad Casiano RN - 10/26/2021 7:00 PM CST Pt's chest tube output at 5.45 pm is 1000 mls of serousanginous drainage, same clamped for 1 hour and unclamped at 6.65 pm.Will observe output. No c/o of chest pain, has dyspnea with activity, lungs diminished throughout.On O2 at 4 lpm nasal cannula, sats 94-95 % with pulse oximetry.Sats on Room air was 88 %. ROLL OPERATOR Monica Gallego RN - 10/26/2021 4:27 PM CST Patient tolerated placement of 12 sudanese chest tube well by Dr Mistry. Clear yellow fluid coming from tube.Tube was banded in two areas and placed to water seal. Stay fix dressing clean dry and intact. Patient back to ER via cart. Sample collected was brought to lab for processing. ROLL OPERATOR documented in this encounter H&P Notes Zion Mijares MD - 10/26/2021 9:56 AM CST Images from the original note were not included. [facility] Hospitalist Admission Note Name: Hay Gutierrez Date of : 1960 Age: [age] year old Date of admission: 10/26/2021 Primary care provider: Melissa Waite Assessment: Brief summary of admission assessment: Hay Gutierrez is a 61 year old male with a significant past medical history of alcohol use disorder , COPD , Chronic pancreatitis , CVA and HTN who presents with Shortness of breath and abnormal CT chest (concern for hydropneumothorax)completed at [facility] on 10/20/2021 done for p ulmonary nodule surveillance. Patient was advised to come to [facility] ED for further evaluation and treatment. Repeat CT chest here was significant for Small right apical predominant pneumothorax and moderate right pleural effusion and other abnormalities as listed below. IR consulted and patient had thoracentesis and chest tube placement. Patient was given unasyn and admitted to our hospital for further care. Admission diagnoses: #1.Right sided apical pneumothorax and moderate pleural effusion -- small apical pneumothorax , etiology unclear but patient is cachectic and falls frequently.Traumaand emphysema could have resulted in the small pneumothorax -- US guided thoracentesis done in the IR and 1.5 L of clear yellow fluid drained , specimen sent for analysis . Suspect aspiration pneumonia with para pneumonic effusion vs empyema -- chest tube placed by IR , thoracic surgery consult requested #2.Generalized weakness , cachexia, sever malnutrition with frequent falls, upper extremity bruises and fresh tears -- etiology unclear , suspect chronic illness , alcoholism , ?malignancy- has skin cancer (nasal) planning bx #3.CT scan abnormalities --Extensive upper lobes predominant emphysematous changes --7 mm right upper lobe pulmonary nodule --Frothy debris versus mucoid impaction in the right lower and middle lobes bronchi, suggesting possible aspiration. --Extensive pancreatic parenchymal calcification, likely related to history of chronic pancreatitis. --Significant gastric wall thickening predominantly of the distal stomach, can be seen with acute gastritis versus less likely gastric malignancy, recommend further evaluation with upper endoscopy --Diffuse colonic wall thickening, nonspecific, can be seen with diffuse colitis. #4.Tobacco use disorder -- currently smokes 10-12 cigarettes daily #5.H/o alcohol use disorder -- sober since May Active comorbid medical conditions: ??? HTN on atelolol , lisinopril ??? COPD on inhalers - Denia Paige MD ??? Vitamin D deficiency ??? 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 Pancreatic necrosis COVID-19 Testing : Negative COVID -19 Vaccination Status : COVID-19 VACCINE MODERNA EUA 1 03/23/2021 ?? MODERNA SUBSEQUENT DOSE COVID-19 VACCINATION SCHEDULE 1 03/23/2021 Plan/MDM: # Admission Status: Will admit patient to hospitalist service as inpatient as patient likely need over two mid night stay in the hospital. # Care plan: ??? Admit to medical floor , pain management , Chest tube management per thoracic surgery(Dr Tapia contacted ) ??? Continue abx with unasyn , follow vitals and pending cultures ??? Wound care consult ??? RD consult ??? PT , OT and SW ??? Nicotine patch ??? Nebs ??? Med rec and resume home medications as appropriate # Supportive care:Pain management: acetominophen, oral narcotics and IV narcotics Nausea and vomiting control measures Respiratory therapy # Diet:Diet advanced # Activity:Advance activity as tolerated # Education/Counseling :Discussed treatment plan with the patient # Consults:Inpatient consult with thoracic surgery # VTE prophylactic measures:prophylaxis against venous thromboembolism with PCD # Therapies:Occupational therapy, Physical therapy and Wound care # Additional orders: --Care plan discussed with the patient/family and agreed to care plan --Patient will be transferred to care of hospitalist attending for further evaluation and managementas appropriate --Old medical orders reviewed --imaging result independently reviewed by me (See orders placed for this visit by me ) - Home medication reviewed and will be continued as appropriate once pharmacy reconciliation is completed Code Status/Disposition: # Code Status:Full Code # Disposition:anticipate discharge to skilled care facility and Anticipate discharge in 4 days Disclaimer: This note consists of symbols derived from keyboarding, dictation and/or voice recognition software. As a result, there may be errors in the script that have gone undetected. Please consider this when interpreting information found in this chart. Chief Complaint: Sob and abnormal CT of chest History is obtained from the patient, electronic health record and emergency department physician History of Present Illness: This patient is a 61 year old male with a significant past medical history of alcoholism and recurrent pancreatitis , HTN , pulmonary nodule who presents with the following condition requiring a hospital admission: Hydropneumothorax Hay Gutierrez is a 61 year old male who presents for evaluation of shortness of breath, and an abnormal outpatient CT scan. He states he underwent a CT scan on 10/20/[address] [facility] and was called today about the results and told to present to the ER as soon as possible. He underwent a CTscan for routine surveillance of a nodule. The records indicate concern for hydropneumothorax and potential abscess versus other infection within the right middle and lower lobes. He denies current alcohol use , sober since May. He has been having a cough. He has been very short of breath and not able to exert himself as much as possible. He has no chest pain. He has no fevers. He has epigastric pain that is pain when he moves. He tripped and fell yesterday approximately 24 hours ago and has skin tears to his right arm. He has no other injuries. Did not strike his head or have a headache. ?? Past Medical History: Past Medical History: Diagnosis Date ??? Alcohol abuse ??? COPD (chronic obstructive pulmonary disease) (H) ??? 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 HTN (hypertension) ??? Pancreatitis ??? Sciatic nerve pain Past Surgical History: None Social History: Social History Tobacco Use ??? Smoking status: Current Every Day Smoker Packs/day: 1.00 Years: 28.00 Pack years: 28.00 ??? Smokeless tobacco: Not on file Substance Use Topics ??? Alcohol use: Yes Alcohol/week: 1.7 standard drinks Types: 2 Cans of beer per week Family History: Family History Problem Relation Age of Onset ??? Cancer Father ??? Cancer Sister Allergies: No Known Allergies Medications: Prior to Admission medications Medication Sig Last Dose Taking? Auth Provider albuterol (PROAIR HFA/PROVENTIL HFA/VENTOLIN HFA) 108 (90 Base) MCG/ACT inhaler Inhale 2 puffs into the lungs every 6 hours as needed for shortness of breath / dyspnea or wheezing 10/26/2021 at am Yes Unknown, Entered By History aspirin (ASA) 325 MG EC tablet Take 325 mg by mouth daily 10/25/2021 at hs Yes Unknown, Entered By History atenolol (TENORMIN) 25 MG tablet Take 25 mg by mouth daily (with dinner) 10/25/2021 at hs Yes Unknown, Entered By History Rjmkovetafo-Ygvyfpwnz-Dseaeagbmw (TRELEGY ELLIPTA) 100-62.5-25 MCG/INH oral inhaler Inhale 1 puff into the lungs At Bedtime 10/25/2021 at Unknown time Yes Unknown, Entered By History lisinopril (ZESTRIL) 20 MG tablet Take 20 mg by mouth daily (with dinner) 10/25/2021 at hs Yes Unknown, Entered By History multivitamin w/minerals (THERA-VIT-M) tablet Take 1 tablet by mouth daily Past Week at Unknown time Yes Dameon Donnelly MD tamsulosin (FLOMAX) 0.4 MG capsule Take 0.4 mg by mouth At Bedtime 10/25/2021 at Unknown time Yes Unknown, Entered By History Review of Systems: A Comprehensive greater than 10 system review of systems was carried out. Pertinent positives and negatives are noted above in HPI. Otherwise negative for contributory information. Physical Exam: Vital signs were reviewed Temp: [98.5 ??F (36.9 ??C)-98.7 ??F (37.1 ??C)] 98.7 ??F (37.1 ??C) Pulse: [73-120] 79 Resp: [15-25] 20 BP: (127-167)/(70-99) 158/98 SpO2: [89 %-97 %] 94 % GEN: awake and alert - looks much older than his age NECK:Supple ,no mass or thyromegaly HEENT: Normocephalic/atraumatic, no scleral icterus, has nasal skin discoloration CV: Regular rate and rhythm, no murmur or JVD. S1 + S2 noted, no S3 or S4. LUNGS: Reduced air entry , no wheezing . ABD: Active bowel sounds, soft, non-tender/non-distended. No rebound/guarding/rigidity. EXT: No edema. No cyanosis. No joint synovitis noted.Lower extremity pulses are normal bilaterally and LGS: No cervical or axillary lymphadenopathy SKIN: Multiple upper extremities bruises , right hand skin tear Neurologic:Grossly intact,non focal . No acute focal neurologic deficit Psychaitric exam: Mood and affect normal Additional significant Findings: cachexia Data: All laboratory and imaging data in the past 24 hours reviewed Results for orders placed or performed during the hospital encounter of 10/26/21 XR Chest Port 1 View Status: None Narrative CHEST PORTABLE ONE VIEW 10/26/2021 10:32 AM HISTORY: SOB, reported collapsed lung on outpatient CT last week. COMPARISON: Chest x-ray on 04/16/2020. Impression IMPRESSION: AP view chest was obtained. Cardiomediastinal silhouette is within normal limits. Small to moderate volume right pleural effusion and associated basilar atelectasis/consolidation. No significant left pleural effusion. No significant pneumothorax. High lung volumes, likely due to underlying COPD changes. Multiple old rib fractures. CLAIR CUEVA MD CT Chest w Contrast Status: None Narrative CT CHEST W CONTRAST 10/26/2021 12:34 PM HISTORY: Respiratory illness, nondiagnostic x-ray. Outside CT with right hydropneumothorax, and probable abscess within the right middle lobe, seen on outpatient CT scan last week, unable to obtain images. TECHNIQUE: Scans obtained from the apices through the diaphragm with IV contrast. 50 mL Isovue-370 IV injected. Radiation dose for this scan was reduced using automated exposure control, adjustment of the mA and/or kV according to patient size, or iterative reconstruction technique. COMPARISON: Chest x-ray on same day earlier. FINDINGS: Chest/mediastinum: No cardiomegaly or significant pericardial effusion. Extensive atherosclerotic vascular calcification of the coronary arteries and thoracic aorta. No significant mediastinal, hilar or axillary lymphadenopathy. Lungs and pleura: Small to moderate right pleural effusion and associated basilar atelectasis/consolidation. Extensive upper lobe predominant emphysematous changes. Small right apical predominant pneumothorax. No left pneumothorax. No left pleural effusion. There is 7 mm right apical nodule (series 5 image 71). Frothy debris versus mucoid impaction in the right lower and middle lobe bronchi, suggesting possible aspiration. Upper abdomen: Limited evaluation of upper abdomen due to lack of coverage. Extensive pancreatic parenchymal calcification, likely related to a history of chronic pancreatitis. Small amount of free fluid in the upper abdomen of indeterminate etiology. Bones and soft tissue: Multilevel degenerative changes of the spine. Multiple old rib fractures. Impression IMPRESSION: 1. Small right apical predominant pneumothorax. 2. Small to moderate right pleural effusion and associated basilar atelectasis/consolidation. 3. Extensive upper lobes predominant emphysematous changes. 4. 7 mm right upper lobe pulmonary nodule, as per Fleischner society criteria, recommend follow-up exam in 6 months to assess for interval change. 5. Frothy debris versus mucoid impaction in the right lower and middle lobes bronchi, suggesting possible aspiration. 6. Extensive pancreatic parenchymal calcification, likely related to history of chronic pancreatitis. 7. Small amount of free fluid in the upper abdomen of undetermined etiology. CLAIR CUEVA MD CT Abdomen Pelvis w Contrast Status: None Narrative CT ABDOMEN AND PELVIS WITH CONTRAST 10/26/2021 1:50 PM HISTORY: Epigastric pain. Chronic pancreatitis, free fluid seen on chest CT. TECHNIQUE: CT abdomen and pelvis with 50 mL Isovue-370 IV. Radiation dose for this scan was reduced using automated exposure control, adjustment of the mA and/or kV according to patient size, or iterative reconstruction technique. COMPARISON: Chest CT on same day earlier and CT abdomen and pelvis on 04/16/2020. FINDINGS: Lower chest: Moderate right pleural effusion and associated basilar atelectasis/consolidation. Small right pneumothorax better seen on same day chest CT. Abdomen/pelvis: Hepatobiliary: No suspicious focal hepatic lesion. Diffuse mural enhancement of the gallbladder of indeterminate etiology. Pancreas: Diffuse pancreatic parenchymal calcification, likely related to history of chronic pancreatitis. No definite solid pancreatic mass visualized on this single-phase CT. Spleen: No splenomegaly. Adrenal glands: Diffuse thickening without discrete nodularity of the left adrenal gland. No right adrenal nodule. Kidneys: Contrast within the renal collecting system, precludes detailed evaluation for kidney stones. Bowel: Diffuse gastric wall thickening predominantly of the distal stomach, of indeterminate etiology. Mild diffuse colonic wall thickening, of indeterminate etiology, could be due to underlying colitis. Peritoneum: Small amount of free fluid in the upper abdomen and pelvis. Pelvic organs: The prostate gland is enlarged measuring approximately 5.2 cm in transverse diameter. Vascular: Extensive atherosclerotic vascular calcification of the abdominal aorta and iliac vessels. Lymph nodes: Multiple prominent but not significantly enlarged abdominopelvic lymph nodes, indeterminate, could be reactive. Bones and soft tissue: No suspicious osseous lesion. Impression IMPRESSION: 1. Extensive pancreatic parenchymal calcification, likely related to history of chronic pancreatitis. 2. Small amount of free fluid in the upper abdomen and pelvis, of indeterminate etiology. 3. Significant gastric wall thickening predominantly of the distal stomach, can be seen with acute gastritis versus less likely gastric malignancy, recommend further evaluation with upper endoscopy. 4. Diffuse colonic wall thickening, nonspecific, can be seen with diffuse colitis. 5. Mild diffuse mucosal enhancement of the gallbladder, of indeterminate etiology, can be further evaluated with right upper quadrant abdominal ultrasound if clinically warranted. CLAIR CUEVA MD Extra Green Top ([place] Heparin) Tube Status: None Result Value Ref Range Hold Specimen JIC Extra Purple Top Tube Status: None Result Value Ref Range Hold Specimen JIC Comprehensive metabolic panel Status: Abnormal Result Value Ref Range Sodium 141 133 - 144 mmol/L Potassium 3.4 3.4 - 5.3 mmol/L Chloride 110 (H) 94 - 109 mmol/L Carbon Dioxide (CO2) 25 20 - 32 mmol/L Anion Gap 6 3 - 14 mmol/L Urea Nitrogen 9 7 - 30 mg/dL Creatinine 0.56 (L) 0.66 - 1.25 mg/dL Calcium 8.2 (L) 8.5 - 10.1 mg/dL Glucose 208 (H) 70 - 99 mg/dL Alkaline Phosphatase 78 40 - 150 U/L AST 15 0 - 45 U/L ALT 9 0 - 70 U/L Protein Total 7.1 6.8 - 8.8 g/dL Albumin 2.4 (L) 3.4 - 5.0 g/dL Bilirubin Total 0.4 0.2 - 1.3 mg/dL GFR Estimate >90 >60 mL/min/1.73m2 Lipase Status: Abnormal Result Value Ref Range Lipase 779 (H) 73 - 393 U/L Troponin I Status: Normal Result Value Ref Range Troponin I High Sensitivity 8 <79 ng/L Nt probnp inpatient (BNP) Status: Normal Result Value Ref Range N terminal Pro BNP Inpatient 362 0 - 900 pg/mL Extra Blue Top Tube Status: None Result Value Ref Range Hold Specimen JIC Extra Green Top ([place] Heparin) Tube Status: None Result Value Ref Range Hold Specimen JIC CBC with platelets and differential Status: Abnormal Result Value Ref Range WBC Count 8.0 4.0 - 11.0 10e3/uL RBC Count 3.46 (L) 4.40 - 5.90 10e6/uL Hemoglobin 11.5 (L) 13.3 - 17.7 g/dL Hematocrit 34.7 (L) 40.0 - 53.0 % MCV 100 78 - 100 fL MCH 33.2 (H) 26.5 - 33.0 pg MCHC 33.1 31.5 - 36.5 g/dL RDW 15.6 (H) 10.0 - 15.0 % Platelet Count 298 150 - 450 10e3/uL % Neutrophils 75 % % Lymphocytes 13 % % Monocytes 9 % % Eosinophils 2 % % Basophils 1 % % Immature Granulocytes 0 % NRBCs per 100 WBC 0 <1 /100 Absolute Neutrophils 6.1 1.6 - 8.3 10e3/uL Absolute Lymphocytes 1.0 0.8 - 5.3 10e3/uL Absolute Monocytes 0.7 0.0 - 1.3 10e3/uL Absolute Eosinophils 0.2 0.0 - 0.7 10e3/uL Absolute Basophils 0.1 0.0 - 0.2 10e3/uL Absolute Immature Granulocytes 0.0 <=0.4 10e3/uL Absolute NRBCs 0.0 10e3/uL Lactic acid whole blood Status: Normal Result Value Ref Range Lactic Acid 1.7 0.7 - 2.0 mmol/L Creatinine POCT Status: Abnormal Result Value Ref Range Creatinine POCT 0.5 (L) 0.7 - 1.3 mg/dL GFR, ESTIMATED POCT >60 >60 mL/min/1.73m2 Alcohol level blood Status: Normal Result Value Ref Range Alcohol ethyl <0.01 <=0.01 g/dL INR Status: Normal Result Value Ref Range INR 1.11 0.85 - 1.15 Asymptomatic COVID-19 Virus (Coronavirus) by PCR Nasopharyngeal Status: Normal Specimen: Nasopharyngeal; Swab Result Value Ref Range SARS CoV2 PCR Negative Negative Narrative Testing was performed using the george?? SARS-CoV-2 & Influenza A/B Assay on the george?? [place]?? System. This test should be ordered for the detection of SARS-COV-2 in individuals who meet SARS-CoV-2 clinical and/or epidemiological criteria. Test performance is unknown in asymptomatic patients. This test is for in vitro diagnostic use under the FDA EUA for laboratories certified under CLIA to perform moderate and/or high complexity testing. This test has not been FDA cleared or approved. A negative test does not rule out the presence of PCR inhibitors in the specimen or target RNA in concentration below the limit of detection for the assay. The possibility of a false negative should be considere d if the patient's recent exposure or clinical presentation suggests COVID-19. [facility] are certified under the Clinical Laboratory Improvement Amendments of 1988 (CLIA-88) as qualified to perform moderate and/or high complexity laboratory testing. Glucose fluid Status: None Result Value Ref Range Glucose fluid 82 mg/dL Narrative No reference ranges have been established. This result should be interpreted in the context of the patient's clinical condition and compared to simultaneous measurement in the patient's blood. This is a lab developed test. It has not been cleared or approved by the FDA. Lactate dehydrogenase fluid Status: None Result Value Ref Range Lactate dehydrogenase fluid 363 U/L Narrative No reference ranges have been established. This result should be interpreted in the context of the patient's clinical condition and compared to simultaneous measurement in the patient's blood. Lactate Dehydrogenase Status: Abnormal Result Value Ref Range Lactate Dehydrogenase 273 (H) 85 - 227 U/L Protein total Status: Abnormal Result Value Ref Range Protein Total 6.5 (L) 6.8 - 8.8 g/dL Protein fluid Status: None Result Value Ref Range Protein Total Fluid 3.5 g/dL Narrative No reference ranges have been established. This result should be interpreted in the context of the patient's clinical condition and compared to simultaneous measurement in the patient's blood. This is a lab developed test. It has not been cleared or approved by the FDA. Cell Count Body Fluid Status: Abnormal Result Value Ref Range Color Yellow Colorless, Yellow Clarity Cloudy (A) Clear, Bloody Total Nucleated Cells 1,070 /uL Narrative No reference ranges have been established. This result should be interpreted in the context of the patient's clinical condition and compared to simultaneous measurement in the patient's blood. Magnesium Status: Normal Result Value Ref Range Magnesium 1.9 1.6 - 2.3 mg/dL Potassium Status: Normal Result Value Ref Range Potassium 3.5 3.4 - 5.3 mmol/L Magnesium Status: Normal Result Value Ref Range Magnesium 1.9 1.6 - 2.3 mg/dL Differential Body Fluid Status: None Result Value Ref Range % Neutrophils 7 % % Lymphocytes 46 % % Monocyte/Macrophages 11 % % Eosinophils 36 % Narrative No reference ranges have been established. This result should be interpreted in the context of the patient's clinical condition and compared to simultaneous measurement in the patient's blood. EKG 12-lead, tracing only Status: None Result Value Ref Range Systolic Blood Pressure mmHg Diastolic Blood Pressure mmHg Ventricular Rate 97 BPM Atrial Rate 97 BPM NM Interval 164 ms QRS Duration 62 ms QT 334 ms QTc 424 ms P [place] 82 degrees R AXIS 116 degrees T [place] 88 degrees Interpretation ECG Sinus rhythm with Fusion complexes Right axis deviation Low voltage QRS Abnormal ECG When compared with ECG of 16-APR-2020 14:07, Fusion complexes are now Present QRS axis Shifted right Nonspecific T wave abnormality no longer evident in Inferior leads Nonspecific T wave abnormality, improved in Anterolateral leads Confirmed by - EMERGENCY ROOM, PHYSICIAN ([id number]), editor producer HECTOR PATTERSON ([id number]) on 10/26/2021 3:19:02 PM Extra Tube ([place] Draw) Status: None Narrative The following orders were created for panel order Extra Tube ([place] Draw). Procedure Abnormality Status --------- ------ Extra Green Top ([place]...[[id number]] Final result Extra Purple Top Tube[[id number]] Final result Please view results for these tests on the individual orders. CBC with platelets differential Status: Abnormal Narrative The following orders were created for panel order CBC with platelets differential. Procedure Abnormality Status --------- ------ CBC with platelets and d...[[id number]] Abnormal Final result Please view results for these tests on the individual orders. Extra Tube ([place] Draw) Status: None Narrative The following orders were created for panel order Extra Tube ([place] Draw). Procedure Abnormality Status --------- ------ Extra Blue Top Tube[[id number]] Final result Extra Green Top ([place]...[[id number]] Final result Please view results for these tests on the individual orders. Cell count with differential fluid Status: Abnormal Narrative The following orders were created for panel order Cell count with differential fluid. Procedure Abnormality Status --------- ------ Cell Count Body Fluid[[id number]] Abnormal Final result Differential Body Fluid[[id number]] Final result Please view results for these tests on the individual orders. Recent Results (from the past 48 hour(s)) XR Chest Port 1 View Narrative CHEST PORTABLE ONE VIEW 10/26/2021 10:32 AM HISTORY: SOB, reported collapsed lung on outpatient CT last week. COMPARISON: Chest x-ray on 04/16/2020. Impression IMPRESSION: AP view chest was obtained. Cardiomediastinal silhouette is within normal limits. Small to moderate volume right pleural effusion and associated basilar atelectasis/consolidation. No significant left pleural effusion. No significant pneumothorax. High lung volumes, likely due to underlying COPD changes. Multiple old rib fractures. CLAIR CUEVA MD CT Chest w Contrast Narrative CT CHEST W CONTRAST 10/26/2021 12:34 PM HISTORY: Respiratory illness, nondiagnostic x-ray. Outside CT with right hydropneumothorax, and probable abscess within the right middle lobe, seen on outpatient CT scan last week, unable to obtain images. TECHNIQUE: Scans obtained from the apices through the diaphragm with IV contrast. 50 mL Isovue-370 IV injected. Radiation dose for this scan was reduced using automated exposure control, adjustment of the mA and/or kV according to patient size, or iterative reconstruction technique. COMPARISON: Chest x-ray on same day earlier. FINDINGS: Chest/mediastinum: No cardiomegaly or significant pericardial effusion. Extensive atherosclerotic vascular calcification of the coronary arteries and thoracic aorta. No significant mediastinal, hilar or axillary lymphadenopathy. Lungs and pleura: Small to moderate right pleural effusion and associated basilar atelectasis/consolidation. Extensive upper lobe predominant emphysematous changes. Small right apical predominant pneumothorax. No left pneumothorax. No left pleural effusion. There is 7 mm right apical nodule (series 5 image 71). Frothy debris versus mucoid impaction in the right lower and middle lobe bronchi, suggesting possible aspiration. Upper abdomen: Limited evaluation of upper abdomen due to lack of coverage. Extensive pancreatic parenchymal calcification, likely related to a history of chronic pancreatitis. Small amount of free fluid in the upper abdomen of indeterminate etiology. Bones and soft tissue: Multilevel degenerative changes of the spine. Multiple old rib fractures. Impression IMPRESSION: 1. Small right apical predominant pneumothorax. 2. Small to moderate right pleural effusion and associated basilar atelectasis/consolidation. 3. Extensive upper lobes predominant emphysematous changes. 4. 7 mm right upper lobe pulmonary nodule, as per Fleischner society criteria, recommend follow-up exam in 6 months to assess for interval change. 5. Frothy debris versus mucoid impaction in the right lower and middle lobes bronchi, suggesting possible aspiration. 6. Extensive pancreatic parenchymal calcification, likely related to history of chronic pancreatitis. 7. Small amount of free fluid in the upper abdomen of undetermined etiology. CLAIR CUEVA MD CT Abdomen Pelvis w Contrast Narrative CT ABDOMEN AND PELVIS WITH CONTRAST 10/26/2021 1:50 PM HISTORY: Epigastric pain. Chronic pancreatitis, free fluid seen on chest CT. TECHNIQUE: CT abdomen and pelvis with 50 mL Isovue-370 IV. Radiation dose for this scan was reduced using automated exposure control, adjustment of the mA and/or kV according to patient size, or iterative reconstruction technique. COMPARISON: Chest CT on same day earlier and CT abdomen and pelvis on 04/16/2020. FINDINGS: Lower chest: Moderate right pleural effusion and associated basilar atelectasis/consolidation. Small right pneumothorax better seen on same day chest CT. Abdomen/pelvis: Hepatobiliary: No suspicious focal hepatic lesion. Diffuse mural enhancement of the gallbladder of indeterminate etiology. Pancreas: Diffuse pancreatic parenchymal calcification, likely related to history of chronic pancreatitis. No definite solid pancreatic mass visualized on this single-phase CT. Spleen: No splenomegaly. Adrenal glands: Diffuse thickening without discrete nodularity of the left adrenal gland. No right adrenal nodule. Kidneys: Contrast within the renal collecting system, precludes detailed evaluation for kidney stones. Bowel: Diffuse gastric wall thickening predominantly of the distal stomach, of indeterminate etiology. Mild diffuse colonic wall thickening, of indeterminate etiology, could be due to underlying colitis. Peritoneum: Small amount of free fluid in the upper abdomen and pelvis. Pelvic organs: The prostate gland is enlarged measuring approximately 5.2 cm in transverse diameter. Vascular: Extensive atherosclerotic vascular calcification of the abdominal aorta and iliac vessels. Lymph nodes: Multiple prominent but not significantly enlarged abdominopelvic lymph nodes, indeterminate, could be reactive. Bones and soft tissue: No suspicious osseous lesion. Impression IMPRESSION: 1. Extensive pancreatic parenchymal calcification, likely related to history of chronic pancreatitis. 2. Small amount of free fluid in the upper abdomen and pelvis, of indeterminate etiology. 3. Significant gastric wall thickening predominantly of the distal stomach, can be seen with acute gastritis versus less likely gastric malignancy, recommend further evaluation with upper endoscopy. 4. Diffuse colonic wall thickening, nonspecific, can be seen with diffuse colitis. 5. Mild diffuse mucosal enhancement of the gallbladder, of indeterminate etiology, can be further evaluated with right upper quadrant abdominal ultrasound if clinically warranted. CLAIR CUEVA MD EKG results: Sinus rhythm with Fusion complexes Right axis deviation Low voltage QRS All imaging studies reviewed by me. Patient`s old medical records reviewed and case discussed with the ED physician. ED course-Reviewed and care plan discussed with Yunier Alvarez MD ?? ROLL OPERATOR documented in this encounter Consult Notes Jeanie Braton PA-C - 10/27/2021 2:01 PM CSTAssociated Order(s): THORACIC SURGERY IP CONSULT THORACIC SURGERY CONSULT NOTE Consult Reason: Right hydropneumothorax HPI: Hay Gutierrez is a 61 year old man, current smoker, with a history of alcohol use, COPD, chronic pancreatitis who has been feeling short of breath over the last few months, worse in the last week and presented to the ED on 10/26/2021. CT chest revealed moderate right hydropneumothorax and underwent chest tube placement same day. Over 1 L of pleural fluid was removed initially. He does not coughoften after eating or drinking. No recent fever, chills, vomiting, diarrhea. History of alcohol abuse and this is been intermittent over his lifetime and he is a current smoker, approximately 96-[id number]-[id number] history. A/P: Patient is a 61 year old male with right hydropneumothorax -CT chest 10/26 with right hydropneumothorax s/p chest tube placement -Lung is trapped and this is likely been evident for several months -Suspect this may be due to the liver since he is hypoalbuminemic at 1.8 -In this situation, the chest tube may be a source of infection, therefore removed today without complication -He will continue to accumulate fluid in the chest as the lung is trapped and albumin is low -CXR in 1 hour, if stable, can be discharged from thoracic standpoint -Would recommend further work-up on liver disease as an outpatient -Continue outpatient lung cancer screening -Counseled to quit smoking -No further recommendations, please call us with any questions Patient and plan discussed with attending. Thank you for the opportunity to participate in the care of this patient. PMH: Past Medical History: Diagnosis Date ??? Alcohol abuse ??? COPD (chronic obstructive pulmonary disease) (H) ??? 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 HTN (hypertension) ??? Pancreatitis ??? Sciatic nerve pain PSH: No past surgical history on file. FH: family history includes Cancer in his father and sister. SH: Current Tobacco use, 30+ year pack history Former EtOH use Allergies: No Known Allergies Home Meds: Medications Prior to Admission Medication Sig Dispense Refill Last Dose ??? albuterol (PROAIR HFA/PROVENTIL HFA/VENTOLIN HFA) 108 (90 Base) MCG/ACT inhaler Inhale 2 puffs into the lungs every 6 hours as needed for shortness of breath / dyspnea or wheezing 10/26/2021 at am ??? aspirin (ASA) 325 MG EC tablet Take 325 mg by mouth daily 10/25/2021 at hs ??? atenolol (TENORMIN) 25 MG tablet Take 25 mg by mouth daily (with dinner) 10/25/2021 at hs ??? Zsfstymovbn-Uhjfftlrr-Shlxvogijr (TRELEGY ELLIPTA) 100-62.5-25 MCG/INH oral inhaler Inhale 1 puff into the lungs At Bedtime 10/25/2021 at Unknown time ??? lisinopril (ZESTRIL) 20 MG tablet Take 20 mg by mouth daily (with dinner) 10/25/2021 at hs ??? multivitamin w/minerals (THERA-VIT-M) tablet Take 1 tablet by mouth daily Past Week at Unknown time ??? tamsulosin (FLOMAX) 0.4 MG capsule Take 0.4 mg by mouth At Bedtime 10/25/2021 at Unknown time ROS: +SOB, fatigue, weakness, cough. Neg for fever, chills, n/v/d, bleeding. Physical Exam: Temp: [97.7 ??F (36.5 ??C)-98.7 ??F (37.1 ??C)] 98.7 ??F (37.1 ??C) Pulse: [71-120] 76 Resp: [14-24] 20 BP: (127-163)/(70-98) 127/79 SpO2: [89 %-98 %] 95 % Gen: NAD, resting comfortably in bed Lungs: Non-labored breathing Neuro: AOx3 Labs: CBC Recent Labs Lab 10/27/21 0625 10/26/21 1005 WBC 7.8 8.0 HGB 9.7* 11.5* PLT 263 298 BMP Recent Labs Lab 10/27/21 0625 10/26/21 1830 10/26/21 1115 10/26/21 1005 NA 139 -- -- 141 POTASSIUM 3.1* 3.5 -- 3.4 CHLORIDE 111* -- -- 110* CO2 24 -- -- 25 BUN 7 -- -- 9 CR 0.70 -- 0.5* 0.56* GLC 74 -- -- 208* LFT Recent Labs Lab 10/27/21 0625 10/26/21 1043 10/26/21 1005 AST 11 -- 15 ALT 6 -- 9 ALKPHOS 59 -- 78 BILITOTAL 0.4 -- 0.4 ALBUMIN 1.8* -- 2.4* INR -- 1.11 -- Pancreas Recent Labs Lab 10/26/21 1005 LIPASE 779* Imaging: Right hydropneumothorax Jeanie Arnold PA-C ROLL OPERATOR Associated attestation - Cristian Tapia MD - 10/28/2021 7:52 AM MILL ROLL OPERATOR Physician Attestation I, Cristian Tapia, saw and evaluated Hay Gutierrez as part of a shared visit. I have reviewed and discussed with the advanced practice provider their history, physical and plan. I personally reviewed the vital signs, medications, labs, and imaging. My ng history or physical exam findings: Chronic pancreatitis, history of 6 pack of beer daily. Hypoalbuminemia Ng management decisions made by me: This does not seem to be of infectious etiology. Consider hepatic hydrothorax. With low albumin and trapped lung, he will continue to produce fluid, so no benefit to keeping tube in. Recommend workup for possible cirrhosis Nutrition support Thoracentesis as needed outpatient Cristian Tapia Date of Service (when I saw the patient): 10/28/21 Tyesha Sanford RN - 10/27/2021 11:11 AM CSTAssociated Order(s): SOCIAL WORK IP CONSULT; CARE MANAGEMENT / SOCIAL WORK IP CONSULT Care Management Initial Consult General Information Assessment completed with: Patient, Type of CM/SW Visit: Initial Assessment Primary Care Provider verified and updated as needed: Yes Readmission within the last 30 days: Reason for Consult: care coordination/care conference,discharge planning Advance Care Planning: Communication Assessment Patient's communication style: spoken language (Thai or Bilingual) Hearing Difficulty or Deaf: no Wear Glasses or Blind: yes Cognitive Cognitive/Neuro/Behavioral: WDL Living Environment: People in home: child(allyson), adult,spouse Current living Arrangements: house Able to return to prior arrangements: yes Family/Social Support: Care provided by: self Provides care for: no one Marital Status: ,Children Description of Support System: Supportive,Involved Support Assessment: Adequate family and caregiver support Current Resources: Patient receiving home care services: No Community Resources: None Equipment currently used at home: cane, straight,grab bar, tub/shower,wheelchair, manual,hospital bed,walker, rolling Supplies currently used at home: Employment/Financial: Employment Status: Financial Concerns: No concerns identified Lifestyle & Psychosocial Needs: Social Determinants of Health Tobacco Use: Not on file Alcohol Use: Not on file Financial Resource Strain: Not on file Food Insecurity: Not on file Transportation Needs: Not on file Physical Activity: Not on file Stress: Not on file Social Connections: Not on file Intimate Partner Violence: Not on file Depression: Not on file Housing Stability: Not on file Functional Status: Prior to admission patient needed assistance: Dependent ADLs:: Independent Dependent IADLs:: Independent Mental Health Status: Mental Health Status: No Current Concerns Chemical Dependency Status: Chemical Dependency Status: No Current Concerns Values/Beliefs: Spiritual, Cultural Beliefs, Roman Catholic Practices, Values that affect care: no Additional Information: CM consulted for discharge planning. Pt admitted with ride side pneumothorax and moderate pleural effusion. US guided thoracentesis done in IR and 1.5 l drained, CT placed. PT recommending TCU. Met with pt at bedside to discuss discharge planning. . He said he was blessed with a supportive family. He lives with and 2 adults sons, all work. He has 3 steps to enter house-rambler style so everything is on one level. We discussed the benefits of TCU and HC. He was adamant that he would not go to a TCU or use HC . CM requested that when working with therapies he think about how he will be able to manage at home. He said family will provide transportation at discharge. Tyesha Sanford RN, BSN, PHN, [facility] Construction Estimator [facility] [phone] ROLL OPERATOR Justin Bass RN - 10/27/2021 9:15 AM CST Images from the original note were not included. [facility] Nurse Inpatient Wound Assessment Reason for consultation: Evaluate and treat Right forearm wounds Assessment Right lower arm wounds and left thumb due to abrasion from fall Status: initial assessment Mostly covered with dry drainage, one area of fibrin/slough on more distal forearm Treatment Plan Right lower arm wounds: Daily 1. Cleanse with wound cleanser and dry 2. Apply a thin layer of Vaseline to wounds 3. Apply adaptic to wounds 4 Cover with ABD or gauze 5. Wrap with kerlix Right thumb wounds: Daily 1. Cleanse with wound cleanser and dry 2. Apply a thin layer of Vaseline to wound 3. Wrap with kerlix Orders Written Recommended provider order: None, at this time WO Nurse follow-up plan:weekly Nursing to notify the Provider(s) and re-consult the WO Nurse if wound(s) deteriorates or new skin concern. Patient History According to provider note(s): Hay Gutierrez is a 61 year old male with a significant past medical history of alcohol use disorder , COPD , Chronic pancreatitis , CVA and HTN who presents with Shortness of breath and abnormal CT chest (concern for hydropneumothorax)completed at [facility] on 10/20/2021 done for pulmonary nodule surveillance. Patient was advised to come to [facility] ED for further evaluation and treatment. ?? Repeat CT chest here was significant for Small right apical predominant pneumothorax and moderate right pleural effusion and other abnormalities Objective Data Containment of urine/stool: Continent of bladder and Continent of bowel Active Diet Order Orders Placed This Encounter Regular Diet Adult Output: I/O last 3 completed shifts: In: 685 [P.O.:585; I.V.:100] Out: 2014 [Urine:925; Chest Tube:1090] Risk Assessment: Sensory Perception: 4-->no impairment Moisture: 4-->rarely moist Activity: 3-->walks occasionally Mobility: 3-->slightly limited Nutrition: 3-->adequate Friction and Shear: 2-->potential problem Perez Score: 19 Labs: Recent Labs Lab 10/27/21 0625 10/26/21 1043 ALBUMIN 1.8* -- HGB 9.7* -- INR -- 1.11 WBC 7.8 -- Physical Exam Areas of skin assessed: focused right lower arm Wound Location: Right lower arm Date of last photo 10/27/21 Wound History: Patient was walking around home during night and tripped over an extension cord his son has connected to space heater resulting in the abrasions to his hand and forearm Wound Base: 85% dry drainage, 15% fibrin/slough Palpation of the wound bed: normal Drainage: small Description of drainage: serosanguinous Measurements (length x width x depth, in cm) 11.5 cm x 1 cm Tunneling N/A Undermining N/A Periwound skin: dry/scaly Color: normal and consistent with surrounding tissue Temperature: normal Odor: none Wound Location: Right Thumb Date of last photo 10/27/21 Wound History: patient reports that he has a fall at home resulting in the abrasions to his hand andforearm Wound Base: 100 % scabbed /dry drainage Palpation of the wound bed: normal Drainage: small Description of drainage: serosanguinous Measurements (length x width x depth, in cm) 1x2cm Tunneling N/A Undermining N/A Periwound skin: dry/scaly Color: normal and consistent with surrounding tissue Temperature: normal Odor: none Pain: absent, sharp Pain intervention prior to dressing change: patient received pain tylenol after visit Interventions Visual inspection and assessment completed 10/27/21 Wound Care Rationale Protect periwound skin, Promote moist wound healing without tissue dehydration , Provide selective debridement (autolysis) of nonviable tissue , Provide protection , Decrease bacterial load and Pain reduction Wound Care: done per plan of care Supplies: gathered Current off-loading measures: Pillows under calves and Pillows Current support surface: Standard Atmos Air mattress Education provided to: importance of repositioning, plan of care, Moisture management and Hygiene Discussed plan of care with Patient and Nurse Katarzyna Tong RN [facility] Portable Pinch Riveter Cosigned Justin Bsas RN CWOCN Heaven Vaz RD, LD - 10/27/2021 8:33 AM CSTAssociated Order(s): NUTRITION SERVICES ADULT IP CONSULT CLINICAL NUTRITION SERVICES - ASSESSMENT NOTE Recommendations: Liberalize diet to regular in light of BMI/repletion needs. Able to verbalize self-selection of highcalorie/high protein with consideration of lower fat as able. Chocolate Ensure at 2 pm. Declined more frequent offerings/scheduling. Continue daily MVI/M. Overall nutrition-related POC per MD as patient chronically does not meet needs orally/severe malnutrition at baseline, likely cachexia component. MALNUTRITION: % Weight Loss: None noted --> chronically underweight % Intake: </= 75% for >/= 1 month (severe malnutrition) Subcutaneous Fat Loss: Orbital region severe depletion and Upper arm region severe depletion Muscle Loss: Temporal region severe depletion, Clavicle bone region severe depletion and Acromion bone region severe depletion Fluid Retention: None documented Malnutrition Diagnosis: Severe malnutrition In Context of: Acute illness or injury and underlying chronic illness or disease + environmental or social circumstances REASON FOR ASSESSMENT Hay Gutierrez is a 61 year old male seen by Registered Dietitian for Admission Nutrition Risk Screen for positive and patient/family request without comment. PMH of: Alcohol use disorder, COPD, chronic pancreatitis, CVA. Admit /2: PE, pneumothorax, weakness, severe malnutrition. NUTRITION HISTORY - Information obtained from patient and chart. - Diet at home: Aiming for high calorie/high protein (able to verbalize protein foods and ways to increase kcal/bite including sour cream, etc.) but notes it's a difficult balance between this diet andlow fat as he references malabsorption concerns w/ pancreatitis (notes oily/frothy stools if eats high fat foods like pizza and also causes pain to a degree). - Usual intakes: Meals TID + 1-2 Ensure daily reported. He verbalizes multiple times he's not sure why he's gaining weight despite PO focus. - Barriers to PO intakes: Denies decreased appetite, does endorse abdominal pain impacting PO trendsespecially over the past 2-3 weeks, and likely malabsorption component as above. - He makes his own meals. - Allergies: NKFA. CURRENT NUTRITION ORDERS Diet Order: Cardiac Current Intake/Tolerance: Limited timeframe since admission. Eating while in room, requested Ensure but only 1x/day. NUTRITION FOCUSED PHYSICAL ASSESSMENT FOR DIAGNOSING MALNUTRITION) Yes Obtained from Chart/Interdisciplinary Team: - Requiring 2 L NC - No documentation of PI - Stooling patterns reviewed - W/ chest tube ANTHROPOMETRICS Height: 5' 8 Weight: 93 lbs 12.8 oz Body mass index is 14.26 kg/m??. Weight Status: Underweight BMI <18.5 Weight History: Wt Readings from Last 10 Encounters: 10/26/21 42.5 kg (93 lb 12.8 oz) 04/16/20 43.9 kg (96 lb 12.8 oz) 11/21/18 55.2 kg (121 lb 9.6 oz) 03/27/18 54.1 kg (119 lb 3.2 oz) 11/09/16 55.1 kg (121 lb 6.4 oz) 09/27/16 53.4 kg (117 lb 12.8 oz) 09/26/16 53.4 kg (117 lb 12.8 oz) 09/21/16 58.1 kg (128 lb) 09/20/16 53.9 kg (118 lb 12.8 oz) 11/05/15 55.2 kg (121 lb 12.8 oz) - Chronically underweight for period of years. Confirmed by patient and he notes he has weighed 196 for 2 years. LABS Labs reviewed: Electrolytes Potassium (mmol/L) Date Value 10/27/2021 3.1 (L) 10/26/2021 3.5 10/26/2021 3.4 04/22/2020 4.2 04/21/2020 4.7 04/20/2020 4.7 Phosphorus (mg/dL) Date Value 04/21/2020 3.0 04/20/2020 2.1 (L) 04/19/2020 2.7 04/19/2020 1.7 (L) 04/18/2020 1.8 (L) Blood Glucose Glucose (mg/dL) Date Value 10/27/2021 74 10/26/2021 208 (H) 04/22/2020 75 04/21/2020 73 04/20/2020 77 04/19/2020 82 04/18/2020 74 Hemoglobin A1C (%) Date Value 09/02/2016 4.9 04/30/2015 5.4 Inflammatory Markers CRP Inflammation (mg/L) Date Value 03/27/2018 <2.9 WBC (10e9/L) Date Value 04/21/2020 7.4 04/19/2020 8.4 04/17/2020 8.8 WBC Count (10e3/uL) Date Value 10/27/2021 7.8 10/26/2021 8.0 Albumin (g/dL) Date Value 10/27/2021 1.8 (L) 10/26/2021 2.4 (L) 04/21/2020 1.6 (L) 04/20/2020 1.7 (L) 04/19/2020 1.7 (L) Magnesium (mg/dL) Date Value 10/27/2021 1.8 10/26/2021 1.9 10/26/2021 1.9 04/21/2020 2.0 04/20/2020 2.4 (H) 04/20/2020 1.4 (L) Sodium (mmol/L) Date Value 10/27/2021 139 10/26/2021 141 04/22/2020 135 04/21/2020 135 04/20/2020 137 Renal Urea Nitrogen (mg/dL) Date Value 10/27/2021 7 10/26/2021 9 04/22/2020 5 (L) 04/21/2020 3 (L) 04/20/2020 4 (L) Creatinine (mg/dL) Date Value 10/27/2021 0.70 10/26/2021 0.56 (L) 04/22/2020 0.54 (L) 04/21/2020 0.46 (L) 04/20/2020 0.46 (L) Creatinine POCT (mg/dL) Date Value 10/26/2021 0.5 (L) Additional Ketones Urine (mg/dL) Date Value 04/16/2020 Negative B/P: 127/79, T: 98.7, P: 76, R: 20 MEDICATIONS Medications reviewed: ??? ampicillin-sulbactam (UNASYN) IV 3 g Intravenous Q6H ??? aspirin 325 mg Oral Daily ??? atenolol 25 mg Oral Daily with supper ??? fluticasone-vilanterol 1 puff Inhalation Daily ??? lisinopril 20 mg Oral Daily with supper ??? multivitamin w/minerals 1 tablet Oral Daily ??? nicotine 1 patch Transdermal Daily ??? nicotine Transdermal Q8H ??? potassium chloride 20 mEq Oral or Feeding Tube Once ??? sodium chloride (PF) 3 mL Intracatheter Q8H ??? umeclidinium 1 puff Inhalation Daily ASSESSED NUTRITION NEEDS PER APPROVED PRACTICE GUIDELINES: Dosing Weight 43 kg Estimated Energy Needs: 35-40 Kcal/Kg Justification: repletion Estimated Protein Needs: 1.5-2+ g pro/Kg Justification: Repletion and preservation of lean body mass Estimated Fluid Needs: per MD NUTRITION DIAGNOSIS: Malnutrition related to acute on chronic decreased PO in the setting of pancreatitis with likely underlying cachexia component as evidenced by chronically meets <75% needs (or less), overt fat/muscle loss with BMI <15. NUTRITION INTERVENTIONS Recommendations / Nutrition Prescription Liberalize diet to regular in light of BMI/repletion needs. Able to verbalize self-selection of highcalorie/high protein with consideration of lower fat as able. Chocolate Ensure at 2 pm. Declined more frequent offerings/scheduling. Continue daily MVI/M. Overall nutrition-related POC per MD as patient chronically does not meet needs orally/severe malnutrition at baseline, likely cachexia component. Implementation Nutrition education: Provided education on above. Medical Food Supplement: As above. Collaboration and Referral of Nutrition care: Discussed POC briefly with RN in room. Nutrition Goals Patient to consume at least 50-75% of meals TID + 1 supplement daily. MONITORING AND EVALUATION: Progress towards goals will be monitored and evaluated per protocol and Practice Guidelines Heaven Covington RDN, LD Clinical Dietitian 3rd floor/ICU: [phone] All other floors: [phone] Weekend/holiday: [phone] ROLL OPERATOR documented in this encounter ED Notes Caridad Casiano RN - 10/26/2021 3:07 PM CST [facility] ED Nurse Handoff Report Hay Gutierrez is a 61 year old male ED Chief complaint: Shortness of Breath . ED Diagnosis: Final diagnoses: Aspiration pneumonia of right lung, unspecified aspiration pneumonia type, unspecified part of lung (H) Hydropneumothorax Allergies: No Known Allergies Code Status: Full Code Activity level - Baseline/Home: Stand by Assist. Activity Level - Current: Assist X 1. Lift room needed: No. Bariatric: No Iron Handler Needed: No Isolation: No. Infection: Not Applicable. Vital Signs: Vitals: 10/26/21 1415 10/26/21 1430 10/26/21 1445 10/26/21 1500 BP: (!) 163/91 (!) 147/92 138/85 137/75 Pulse: 74 73 74 83 Resp: 18 15 24 Temp: TempSrc: SpO2: 97% 95% 93% 95% Cardiac Rhythm: , Pain level: Patient confused: No. Patient Falls Risk: Yes. Elimination Status: Has voided Patient Report - Initial Complaint: SOB. Focused Assessment: Hay Gutierrez is a 61 year old male who presents for evaluation of shortness of breath, abdominal pain, and an abnormal outpatient CT scan. He states he underwent a CT scan on 10/20/[address] [facility] and was called today about theresults and told to present to the ER as soon as possible. He tells me that he underwent a CT scan for routine surveillance of a nodule. The records indicate concern for hydropneumothorax and potentialabscess versus other infection within the right middle and lower lobes. He does me that he drinks alcohol occasionally. He has been having a cough. He has been very short of breath and not able to exert himself as much as possible. He has no chest pain. He has no fevers. He has epigastric pain that ispain when he moves. ? CT scan of the chest, abdomen, and pelvis impression: Interval moderate hydropneumothorax. There aresecretions within the trachea extending into the right lung bronchi with almost total collapse of the right lower lobe and probable abscess versus localized fluid within the right middle lobe with adjac ent consolidative airspace disease. Consider aspiration pneumonia with abscess given excess secretions. Cannot exclude underlying mass within the collapsed right lower lobe. ?? ROS: Review of Systems Constitutional: Negative for chills and fever. Respiratory: Positive for cough and shortness of breath. Cardiovascular: Negative for chest pain. Gastrointestinal: Positive for abdominal pain. Negative for nausea and vomiting. Skin: Positive for wound (Falls today, right arm skin tears). Negative for rash. All other systems reviewed and are negative. ?? Allergies: No Known Allergies ?? Medications: acetaminophen (TYLENOL) 500 MG tablet aspirin (ASA) 325 MG EC tablet atenolol (TENORMIN) 25 MG tablet fluticasone - vilanterol (BREO ELLIPTA) 100-25 MCG/INH oral inhaler lisinopril (ZESTRIL) 20 MG tablet multivitamin w/minerals (THERA-VIT-M) tablet umeclidinium bromide (INCRUSE ELLIPTA) 62.5 MCG/INH inhalation capsule ? Past Medical History: Past Medical History: Diagnosis Date ??? Alcohol abuse ? COPD (chronic obstructive pulmonary disease) (H) ? CVA (cerebral infarction) ? HTN (hypertension) ? Pancreatitis ? Sciatic nerve pain ? Patient Active Problem List Diagnosis ??? Sepsis due to pneumonia (H) ??? Pneumonia ??? Alcohol-induced acute pancreatitis without infection or necrosis ??? Acute pancreatitis ??? Neck and shoulder pain ??? Candidemia (H) ??? Hypocalcemia ??? Chronic alcohol abuse ??? COPD (chronic obstructive pulmonary disease) (H) ??? Severe malnutrition (H) ??? Tobacco use disorder ??? Pancreatitis ??? Alcohol withdrawal, uncomplicated (H) ?? Past Surgical History: Past Surgical History No past surgical history on file. ?? Family History: family history includes Cancer in his father and sister. ?? Social History: reports that he has been smoking. He has a 28.00 pack-year smoking history. He does not have any smokeless tobacco history on file. He reports current alcohol use of about 1.7 standard drinks of alcohol per week. He reports that he does not use drugs. PCP: Melissa Waite Tests Performed: CXR, CT, CT abd. labs Abnormal Results: CT Abdomen Pelvis w Contrast Preliminary Result IMPRESSION: 1. Extensive pancreatic parenchymal calcification, likely related to history of chronic pancreatitis. 2. Small amount of free fluid in the upper abdomen and pelvis, of indeterminate etiology. 3. Significant gastric wall thickening predominantly of the distal stomach, can be seen with acute gastritis versus less likely gastric malignancy, recommend further evaluation with upper endoscopy. 4. Diffuse colonic wall thickening, nonspecific, can be seen with diffuse colitis. 5. Mild diffuse mucosal enhancement of the gallbladder, of indeterminate etiology, can be further evaluated with right upper quadrant abdominal ultrasound if clinically warranted. CT Chest w Contrast Final Result IMPRESSION: 1. Small right apical predominant pneumothorax. 2. Small to moderate right pleural effusion and associated basilar atelectasis/consolidation. 3. Extensive upper lobes predominant emphysematous changes. 4. 7 mm right upper lobe pulmonary nodule, as per Fleischner society criteria, recommend follow-up exam in 6 months to assess for interval change. 5. Frothy debris versus mucoid impaction in the right lower and middle lobes bronchi, suggesting possible aspiration. 6. Extensive pancreatic parenchymal calcification, likely related to history of chronic pancreatitis. 7. Small amount of free fluid in the upper abdomen of undetermined etiology. CLAIR CUEVA MD XR Chest Port 1 View Final Result IMPRESSION: AP view chest was obtained. Cardiomediastinal silhouette is within normal limits. Small to moderate volume right pleural effusion and associated basilar atelectasis/consolidation. No significant left pleural effusion. No significant pneumothorax. High lung volumes, likely due to underlying COPD changes. Multiple old rib fractures. CLAIR CUEVA MD Labs Ordered and Resulted from Time of ED Arrival to Time of ED Departure COMPREHENSIVE METABOLIC PANEL - Abnormal Result Value Sodium 141 Potassium 3.4 Chloride 110 (*) Carbon Dioxide (CO2) 25 Anion Gap 6 Urea Nitrogen 9 Creatinine 0.56 (*) Calcium 8.2 (*) Glucose 208 (*) Alkaline Phosphatase 78 AST 15 ALT 9 Protein Total 7.1 Albumin 2.4 (*) Bilirubin Total 0.4 GFR Estimate >90 LIPASE - Abnormal Lipase 779 (*) CBC WITH PLATELETS AND DIFFERENTIAL - Abnormal WBC Count 8.0 RBC Count 3.46 (*) Hemoglobin 11.5 (*) Hematocrit 34.7 (*) MCV 100 MCH 33.2 (*) MCHC 33.1 RDW 15.6 (*) Platelet Count 298 % Neutrophils 75 % Lymphocytes 13 % Monocytes 9 % Eosinophils 2 % Basophils 1 % Immature Granulocytes 0 NRBCs per 100 WBC 0 Absolute Neutrophils 6.1 Absolute Lymphocytes 1.0 Absolute Monocytes 0.7 Absolute Eosinophils 0.2 Absolute Basophils 0.1 Absolute Immature Granulocytes 0.0 Absolute NRBCs 0.0 ISTAT CREATININE POCT - Abnormal Creatinine POCT 0.5 (*) GFR, ESTIMATED POCT >60 PROTEIN TOTAL - Abnormal Protein Total 6.5 (*) TROPONIN I - Normal Troponin I High Sensitivity 8 NT PROBNP INPATIENT - Normal N terminal Pro BNP Inpatient 362 LACTIC ACID WHOLE BLOOD - Normal Lactic Acid 1.7 ETHYL ALCOHOL LEVEL - Normal Alcohol ethyl <0.01 INR - Normal INR 1.11 COVID-19 VIRUS (CORONAVIRUS) BY PCR - Normal SARS CoV2 PCR Negative GLUCOSE FLUID LACTATE DEHYDROGENASE FLUID LACTATE DEHYDROGENASE PROTEIN FLUID NON-GYNECOLOGIC CYTOLOGY BLOOD CULTURE BLOOD CULTURE AEROBIC BACTERIAL CULTURE ROUTINE CELL COUNT WITH DIFFERENTIAL FLUID . Treatments provided: NS, ABX, pain meds Family Comments: updated per pt OBS brochure/video discussed/provided to patient: No ED Medications: Medications CT Scan Flush (60 mLs Intravenous Given 10/26/21 1219) iopamidol (ISOVUE-370) solution 500 mL (50 mLs Intravenous Given 10/26/21 1219) 0.9% sodium chloride BOLUS (0 mLs Intravenous Stopped 10/26/21 1412) CT Scan Flush (56 mLs Intravenous Given 10/26/21 1340) iopamidol (ISOVUE-370) solution 500 mL (50 mLs Intravenous Given 10/26/21 1340) ampicillin-sulbactam (UNASYN) 3 g vial to attach to NS 100 mL bag (0 g Intravenous Stopped 10/26/21 1430) HYDROmorphone (PF) (DILAUDID) injection 0.5 mg (0.5 mg Intravenous Given 10/26/21 1430) Drips infusing: No For the majority of the shift, the patient's behavior Green. Interventions performed were n/a. Sepsis treatment initiated: No Patient tested for COVID 19 prior to admission: YES ED Nurse Name/Phone Number: Padma Gamboa RN, 3:07 PM RECEIVING UNIT ED HANDOFF REVIEW Above ED Nurse Handoff Report was reviewed: Yes Reviewed by: Caridad Casiano RN on October 26, 2021 at 4:27 PM ROLL OPERATOR Dulce Maria Armenta RN - 10/26/2021 9:56 AM CST A&O x4. ABC's intact. Pt arrives sent from doctor call to come in for a partially collapsed lung and abnormal pancreas from CT done last week. Pt SOB. ROLL OPERATOR Yunier Alvarez MD - 10/26/2021 9:52 AM CST History Chief Complaint: Shortness of Breath HPI Hay Gutierrez is a 61 year old male who presents for evaluation of shortness of breath, abdominal pain, and an abnormal outpatient CT scan. He states he underwent a CT scan on 10/20/2021 at [facility] and was called today about the results and told to present to the ER as soon as possible. He tells me that he underwent a CT scan for routine surveillance of a nodule. The records indicate concern for hydropneumothorax and potential abscess versus other infection within the right middle and lower lobes. He does me that he drinks alcohol occasionally. He has been having a cough. He has been very short of breath and not able to exert himself as much as possible. He has no chest pain. He has no fevers. He has epigastric pain that is pain when he moves. He does tell me he tripped and fell yesterday approximately 24 hours ago and has skin tears to his right arm. He has no other injuries. Did not strike his head or have a headache. CT scan of the chest, abdomen, and pelvis impression: Interval moderate hydropneumothorax. There aresecretions within the trachea extending into the right lung bronchi with almost total collapse of the right lower lobe and probable abscess versus localized fluid within the right middle lobe with adjac ent consolidative airspace disease. Consider aspiration pneumonia with abscess given excess secretions. Cannot exclude underlying mass within the collapsed right lower lobe. ROS: Review of Systems Constitutional: Negative for chills and fever. Respiratory: Positive for cough and shortness of breath. Cardiovascular: Negative for chest pain. Gastrointestinal: Positive for abdominal pain. Negative for nausea and vomiting. Skin: Positive for wound (Falls today, right arm skin tears). Negative for rash. All other systems reviewed and are negative. Allergies: No Known Allergies Medications: acetaminophen (TYLENOL) 500 MG tablet aspirin (ASA) 325 MG EC tablet atenolol (TENORMIN) 25 MG tablet fluticasone - vilanterol (BREO ELLIPTA) 100-25 MCG/INH oral inhaler lisinopril (ZESTRIL) 20 MG tablet multivitamin w/minerals (THERA-VIT-M) tablet umeclidinium bromide (INCRUSE ELLIPTA) 62.5 MCG/INH inhalation capsule Past Medical History: Past Medical History: Diagnosis Date ??? Alcohol abuse ??? COPD (chronic obstructive pulmonary disease) (H) ??? CVA (cerebral infarction) ??? HTN (hypertension) ??? Pancreatitis ??? Sciatic nerve pain Patient Active Problem List Diagnosis ??? Sepsis due to pneumonia (H) ??? Pneumonia ??? Alcohol-induced acute pancreatitis without infection or necrosis ??? Acute pancreatitis ??? Neck and shoulder pain ??? Candidemia (H) ??? Hypocalcemia ??? Chronic alcohol abuse ??? COPD (chronic obstructive pulmonary disease) (H) ??? Severe malnutrition (H) ??? Tobacco use disorder ??? Pancreatitis ??? Alcohol withdrawal, uncomplicated (H) Past Surgical History: No past surgical history on file. Family History: family history includes Cancer in his father and sister. Social History: reports that he has been smoking. He has a 28.00 pack-year smoking history. He does not have any smokeless tobacco history on file. He reports current alcohol use of about 1.7 standard drinks of alcohol per week. He reports that he does not use drugs. PCP: Melissa Waite Physical Exam Patient Vitals for the past 24 hrs: BP Temp Temp src Pulse Resp SpO2 10/26/21 1315 (!) 150/94 -- -- 79 18 95 % 10/26/21 1300 (!) 148/99 -- -- 79 19 95 % 10/26/21 1245 (!) 142/93 -- -- 77 19 95 % 10/26/21 1215 -- -- -- 79 -- 94 % 10/26/21 1200 130/89 -- -- 78 19 94 % 10/26/21 1145 129/89 -- -- 92 16 95 % 10/26/21 1130 128/87 -- -- 87 25 94 % 10/26/21 1115 127/88 -- -- 83 -- -- 10/26/21 1100 128/84 -- -- 88 21 -- 10/26/21 1001 -- -- -- -- -- 94 % 10/26/21 1000 (!) 146/90 -- -- 99 -- -- 10/26/21 0956 133/86 98.5 ??F (36.9 ??C) Temporal 99 24 96 % Physical Exam Constitutional: Well appearing. HEENT: Atraumatic. Moist mucous membranes. Neck: Soft. Supple. Cardiac: Regular rate and rhythm. No murmur or rub. Respiratory: He has mildly increased work of breathing. He has diminished breath sounds at the rightlower lung field. No wheezing. Abdomen: Soft with epigastric tenderness to palpation. No guarding nondistended. Musculoskeletal: Multiple skin tears of the right arm. No edema. Normal range of motion. Neurologic: Alert and oriented x3. Normal tone and bulk. Skin: No rashes. No edema. Psych: Normal affect. Normal behavior. Emergency Department Course ECG: ECG results from 10/26/21 EKG 12-lead, tracing only Value Systolic Blood Pressure Diastolic Blood Pressure Ventricular Rate 97 Atrial Rate 97 NM Interval 164 QRS Duration 62 QT 334 QTc 424 P [place] 82 R AXIS 116 T [place] 88 Interpretation ECG Sinus rhythm with Fusion complexes Right axis deviation Low voltage QRS Abnormal ECG When compared with ECG of 16-APR-2020 14:07, Fusion complexes are now Present QRS axis Shifted right Nonspecific T wave abnormality no longer evident in Inferior leads Nonspecific T wave abnormality, improved in Anterolateral leads Confirmed by - EMERGENCY ROOM, PHYSICIAN ([id number]), editor producer HECTOR PATTERSON ([id number]) on 10/26/2021 3:19:02 PM Imaging: CT Chest w Contrast Final Result IMPRESSION: 1. Small right apical predominant pneumothorax. 2. Small to moderate right pleural effusion and associated basilar atelectasis/consolidation. 3. Extensive upper lobes predominant emphysematous changes. 4. 7 mm right upper lobe pulmonary nodule, as per Fleischner society criteria, recommend follow-up exam in 6 months to assess for interval change. 5. Frothy debris versus mucoid impaction in the right lower and middle lobes bronchi, suggesting possible aspiration. 6. Extensive pancreatic parenchymal calcification, likely related to history of chronic pancreatitis. 7. Small amount of free fluid in the upper abdomen of undetermined etiology. CLAIR CUEVA MD XR Chest Port 1 View Final Result IMPRESSION: AP view chest was obtained. Cardiomediastinal silhouette is within normal limits. Small to moderate volume right pleural effusion and associated basilar atelectasis/consolidation. No significant left pleural effusion. No significant pneumothorax. High lung volumes, likely due to underlying COPD changes. Multiple old rib fractures. CLAIR CUEVA MD CT Abdomen Pelvis w Contrast (Results Pending) Report per radiology Laboratory: Labs Ordered and Resulted from Time of ED Arrival to Time of ED Departure COMPREHENSIVE METABOLIC PANEL - Abnormal Result Value Sodium 141 Potassium 3.4 Chloride 110 (*) Carbon Dioxide (CO2) 25 Anion Gap 6 Urea Nitrogen 9 Creatinine 0.56 (*) Calcium 8.2 (*) Glucose 208 (*) Alkaline Phosphatase 78 AST 15 ALT 9 Protein Total 7.1 Albumin 2.4 (*) Bilirubin Total 0.4 GFR Estimate >90 LIPASE - Abnormal Lipase 779 (*) CBC WITH PLATELETS AND DIFFERENTIAL - Abnormal WBC Count 8.0 RBC Count 3.46 (*) Hemoglobin 11.5 (*) Hematocrit 34.7 (*) MCV 100 MCH 33.2 (*) MCHC 33.1 RDW 15.6 (*) Platelet Count 298 % Neutrophils 75 % Lymphocytes 13 % Monocytes 9 % Eosinophils 2 % Basophils 1 % Immature Granulocytes 0 NRBCs per 100 WBC 0 Absolute Neutrophils 6.1 Absolute Lymphocytes 1.0 Absolute Monocytes 0.7 Absolute Eosinophils 0.2 Absolute Basophils 0.1 Absolute Immature Granulocytes 0.0 Absolute NRBCs 0.0 ISTAT CREATININE POCT - Abnormal Creatinine POCT 0.5 (*) GFR, ESTIMATED POCT >60 TROPONIN I - Normal Troponin I High Sensitivity 8 NT PROBNP INPATIENT - Normal N terminal Pro BNP Inpatient 362 LACTIC ACID WHOLE BLOOD - Normal Lactic Acid 1.7 ETHYL ALCOHOL LEVEL - Normal Alcohol ethyl <0.01 INR - Normal INR 1.11 COVID-19 VIRUS (CORONAVIRUS) BY PCR - Normal SARS CoV2 PCR Negative BLOOD CULTURE BLOOD CULTURE Procedures Emergency Department Course: Reviewed: I reviewed nursing notes, vitals, past medical history and Care Everywhere Consults: Interventions: Medications CT Scan Flush (60 mLs Intravenous Given 10/26/21 1219) iopamidol (ISOVUE-370) solution 500 mL (50 mLs Intravenous Given 10/26/21 1219) 0.9% sodium chloride BOLUS (0 mLs Intravenous Stopped 10/26/21 1412) CT Scan Flush (56 mLs Intravenous Given 10/26/21 1340) iopamidol (ISOVUE-370) solution 500 mL (50 mLs Intravenous Given 10/26/21 1340) ampicillin-sulbactam (UNASYN) 3 g vial to attach to NS 100 mL bag (0 g Intravenous Stopped 10/26/21 1430) HYDROmorphone (PF) (DILAUDID) injection 0.5 mg (0.5 mg Intravenous Given 10/26/21 1430) Disposition: The patient was admitted under Dr. Mijares. Impression & Plan Covid-19 Hay Gutierrez was evaluated during a global COVID-19 pandemic, which necessitated consideration that the patient might be at risk for infection with the SARS-CoV-2 virus that causes COVID-19. Applicable protocols for evaluation were followed during the patient's care. COVID-19 was considered as part of the patient's evaluation. The plan for testing is: a test was obtained during this visit. Medical Decision Making: Hay Gutierrez is a 61-year-old man who is afebrile. He presented mildly tachycardic but not hypoxic. He does have some mild increased work of breathing. I reviewed the faxed impression of the radiology report but we cannot get the images. I repeated a CT scan with results noted as above with a small pneumothorax, pleural effusion, concern for likely aspiration pneumonia. Lab work-up is noted as above. I discussed the results with him and plan for admission after discussion with thoracic surgery who recommended chest tube placement of the chest tube placed to suction, antibiotics, and further evalu ation. There is noted to be some free fluid on a CT scan of his chest so I did obtain a CT scan of the abdomen and pelvis. He had edema as well around the pancreas on his outpatient CT scan last week. He does have some epigastric tenderness and has known chronic pancreatitis. He was given pain controlas above. He was given Unasyn for potential aspiration pneumonia. Blood cultures were obtained. I discussed with the hospitalist service who accepts him for admission peer interventional radiology was consulted for chest tube placement. The patient was in agreement understanding and in stable condition at time of admission awaiting transfer to the floor. Diagnosis: ICD-10-CM 1. Aspiration pneumonia of right lung, unspecified aspiration pneumonia type, unspecified part of lung (H) J69.0 2. Hydropneumothorax J94.8 10/26/2021 Yunier Alvarez MD Salay, Nicholas J, MD 10/26/21 1549 Yunier Alvarez MD 10/26/21 1552 ROLL OPERATOR documented in this encounter Miscellaneous Notes Plan of Care - Osvaldokalileonidsa Lilly - 10/28/2021 11:21 AM CST Physical Therapy Discharge Summary Reason for therapy discharge: Discharged to home. Progress towards therapy goal(s). See goals on Care Plan in Epic electronic health record for goal details. Goals not met. Barriers to achieving goals: discharge from facility. Therapy recommendation(s): Continued therapy is recommended. Rationale/Recommendations: Recommend use of FWW with all mobility.Recommend home PT to increase activity tolerance and independence with functional mobility, however patient declining at this time. ROLL OPERATOR Associated attestation - Dimas Rawls, PT - 10/28/2021 1:05 PM MILL ROLL OPERATOR Student documentation reviewed by Dimas Rawls PT, DPT and supervising therapist in agreement. Plan of Care - Rea Ch RN - 10/28/2021 11:21 AM CST A&Ox4. VSS. A1 with gb, walker/cane. Tolerating diet well. Dressing change done to arm and thumb. Voiding. Educated patient on wound care for home and gave some supplies until they can get some at home. Meds for discharge oxy and abx. ROLL OPERATOR Plan of Care - Idalmis Forrester OT - 10/28/2021 11:21 AM CST Occupational Therapy Discharge Summary Reason for therapy discharge: Discharged to home. Progress towards therapy goal(s). See goals on Care Plan in [facility] electronic health record for goal details. Goals not met. Barriers to achieving goals: discharge from facility. Therapy recommendation(s): Continued therapy is recommended. Rationale/Recommendations: TCU was recommended, however pt declined and discharged home. Would benefit from OT. Pt not seen by discharging therapist on this date, note written based on previous treating therapist's notes and recommendations ROLL OPERATOR Plan of Care - Amy Alejandro RN - 10/28/2021 6:08 AM CST Pt up with 1 assist, gait belt, and walker. Pain partially controlled with oxycodone and tylenol. LSdiminished and coarse. Pt able to cough and deep breathe with very little productive sputum (clear sputum). Drsg to R posterior back is CDI. BS present, passing flatus. LBM 10/27/21. CMS intact with no n umbness/tingling. Drsg to R lower arm is CDI. Unasyn for abx therapy. K+ and Mg protocol. Thoracic following along with Nutrition and PT. ROLL OPERATOR Plan of Care - Priscilla Watts RN - 10/27/2021 10:39 PM CST BP (!) 150/88 Pulse 71 Temp 98.5 ??F (36.9 ??C) (Temporal) Resp 20 Ht 1.727 m (5' 8) Wt 44.4 kg (97 lb 14.4 oz) SpO2 95% BMI 14.89 kg/m?? Orientation: A&Ox4 Resp: LS, Coarse, 1L O2, frequent productive cough, BEARD, encouraged IS. Skin: WOC following for wound to right arm and thumb, with daily dressing changes. Pain: Managed with Oxycodone 5mg CMS: edema to BLE Dressing: CDI Activity: A1 walker/gb Diet: tolerated regular Voiding: using urinal Discharge Plan: TBD ROLL OPERATOR Plan of Care - Jillian Atkins RN - 10/27/2021 1:35 PM CST Improving. Alert, oriented x4. Pleasant. Lung sounds course, exp wheezes throughout. Productive cough. IS 1000. Prior to removal Chest tube was draining serous/yellow fluid into the chest tube chamber. PA from thoracic removed the tube [id number]. Cont. Pulse ox on. Room air now. No edema. Dressing was changed to the right arm wound. Appetite good today. Iv Unasyn. Up with 1 assist, stand by assist, walker, GB. Potassium replaced. ROLL OPERATOR Plan of Care - Amy Alejandro RN - 10/27/2021 3:58 AM CST Pt up with 1 assist, gait belt, and walker. Pain partially controlled with oxycodone and tylenol. LSdiminished/coarse/crackles noted. Pt able to cough and deep breathe with productive sputum (clear sputum). Chest tube intact with yellow thin output. Sputum needed. BS present, passing flatus. LBM 10/25/21. CMS intact with no numbness/tingling. Drsg to R lower arm is CDI. Unasyn for abx therapy. K+ andMg protocol. Consults for today are Thoracic, PT, OT, SW, and WOC. ROLL OPERATOR Plan of Care - Caridad Casiano RN - 10/26/2021 10:00 PM CST Pt alert and oriented x 4. Vital signs stable, sats on room air 88%, on O2@ 4 lpm nasal cannula, sats 91- 94% with continuous pulse oximetry. Lungs diminished throughout, occasional productive cough, yellow sputum. Chest tube to water seal patent, output since unclamped at 6.45 pm is 50 mls. No air leaks noted. Medicated with tylenol and oxycodone for pain with relief.Robitussin for cough.Nicotine patch on right arm. Pt has skin tear to right hand, forearm and abrasions and bruising to both upper extremities and legs. Dressing done to skin tears on right arm/hand. Potassium and magnesium levels recheck in am. Voids per urinal. Care plan reviewed with pt. ROLL OPERATOR Pharmacy-Admission Medication History - Manjit Baldwin [facility] - 10/26/2021 5:15 PM MILL ROLL OPERATOR Admission medication history interview status for this patient is complete. See [facility] admission navigator for allergy information, prior to admission medications and immunization status. Medication history interview done, indicate source(s): Patient Medication history resources (including written lists, pill bottles, clinic record):None Changes made to [facility] medication list: Added: flomax, trelegy inhaler, ventolin MDI Changed: none Reported as Not Taking: none Removed: APAP, breo ellipta, Incruse ellipta Actions taken by pharmacist (provider contacted, etc):None Additional medication history information:None Medication reconciliation/reorder completed by provider prior to medication history? n (Y/N) For patients on insulin therapy: Do you use sliding scale insulin based on blood sugars? What is your pre-meal insulin coverage? Do you typically eat three meals a day? How many times do you check your blood glucose per day? How many episodes of hypoglycemia do you typically have per month? Do you have a Continuous Glucose Monitor (CGM)? Prior to Admission medications Medication Sig Last Dose Taking? Auth Provider albuterol (PROAIR HFA/PROVENTIL HFA/VENTOLIN HFA) 108 (90 Base) MCG/ACT inhaler Inhale 2 puffs into the lungs every 6 hours as needed for shortness of breath / dyspnea or wheezing 10/26/2021 at am Yes Unknown, Entered By History aspirin (ASA) 325 MG EC tablet Take 325 mg by mouth daily 10/25/2021 at hs Yes Unknown, Entered By History atenolol (TENORMIN) 25 MG tablet Take 25 mg by mouth daily (with dinner) 10/25/2021 at hs Yes Unknown, Entered By History Gffgytmfwff-Bwgiwploe-Ovjeiitpqe (TRELEGY ELLIPTA) 100-62.5-25 MCG/INH oral inhaler Inhale 1 puff into the lungs At Bedtime 10/25/2021 at Unknown time Yes Unknown, Entered By History lisinopril (ZESTRIL) 20 MG tablet Take 20 mg by mouth daily (with dinner) 10/25/2021 at hs Yes Unknown, Entered By History multivitamin w/minerals (THERA-VIT-M) tablet Take 1 tablet by mouth daily Past Week at Unknown time Yes Dameon Donnelly MD tamsulosin (FLOMAX) 0.4 MG capsule Take 0.4 mg by mouth At Bedtime 10/25/2021 at Unknown time Yes Unknown, Entered By History ROLL OPERATOR IR Note - Juan Mistry MD - 10/26/2021 4:37 PM CST RADIOLOGY POST PROCEDURE NOTE Patient name: Hay Gutierrez : 1960 Pre-procedure diagnosis: Right HydroPTX. Possible history of pulmonary abscess on outside imaging Post-procedure diagnosis: Same Procedure Date/Time: October 26, 2021 4:37 PM Procedure: US guided placement of 12 Fr right chest tube. Placed to water seal and gravity drainage for now, as suspect 1.5 L of clear yellow fluid, at least, will drain with gravity. Plan for -20 cm of H2O suction in AM, pending CXR. Estimated blood loss: 2 ml Specimen(s) collected with description: Sample sent to lab for evaluation The patient tolerated the procedure well with no immediate complications. Significant findings: Please see above. See imaging dictation for procedural details. Provider name: Juan Mistry MD Behavioral Instructor(s):None ROLL OPERATOR documented in this encounter Plan of Treatment Not on filedocumented as of this encounter Procedures Procedure Name Priority Date/Time Associated Comments Diagnosis POTASSIUM Routine 10/28/2021 5:56 AM Results f or this MILL ROLL OPERATOR procedure are i n the results section. MAGNESIUM Routine 10/28/2021 5:56 AM Results f or this MILL ROLL OPERATOR procedure are i n the results section. GRAM STAIN STAT 10/27/2021 8:38 PM Results f or this MILL ROLL OPERATOR procedure are i n the results section. XR CHEST 2 VIEWS Routine 10/27/2021 4:32 PM Resul ts for this MILL ROLL OPERATOR procedure are i n the results section. POTASSIUM Timed 10/27/2021 3:16 PM Results f or this MILL ROLL OPERATOR procedure are i n the results section. RESPIRATORY AEROBIC STAT 10/27/2021 10:24 Resu lts for this BACTERIAL CULTURE AM MILL ROLL OPERATOR procedure are in the results section. XR CHEST 2 VIEWS Routine 10/27/2021 10:04 Results for this AM MILL ROLL OPERATOR procedure are i n the results section. MAGNESIUM Routine 10/27/2021 6:25 AM Results f or this MILL ROLL OPERATOR procedure are i n the results section. COMPREHENSIVE Routine 10/27/2021 6:25 AM Results for this METABOLIC PANEL MILL ROLL OPERATOR procedure ar e in the results section. CBC WITH PLATELETS Routine 10/27/2021 6:25 AM Res ults for this MILL ROLL OPERATOR procedure are i n the results section. POTASSIUM STAT 10/26/2021 6:30 PM Results f or this MILL ROLL OPERATOR procedure are i n the results section. MAGNESIUM STAT 10/26/2021 5:35 PM Results f or this MILL ROLL OPERATOR procedure are i n the results section. US CHEST TUBE INSERT STAT 10/26/2021 5:22 PM R esults for this MILL ROLL OPERATOR procedure are i n the results section. DIFERENTIAL BODY FLUID Routine 10/26/2021 4:22 PM Results for this MILL ROLL OPERATOR procedure are i n the results section. CELL COUNT BODY FLUID STAT 10/26/2021 4:22 PM Results for this MILL ROLL OPERATOR procedure are i n the results section. NON-GYNECOLOGIC STAT 10/26/2021 4:22 PM Result s for this CYTOLOGY MILL ROLL OPERATOR procedure are i n the results section. AEROBIC BACTERIAL STAT 10/26/2021 4:22 PM Resu lts for this CULTURE ROUTINE MILL ROLL OPERATOR procedure ar e in the results section. PROTEIN FLUID STAT 10/26/2021 4:22 PM Results for this MILL ROLL OPERATOR procedure are i n the results section. LACTATE DEHYDROGENASE STAT 10/26/2021 4:22 PM Results for this FLUID MILL ROLL OPERATOR procedure are i n the results section. GLUCOSE FLUID STAT 10/26/2021 4:22 PM Results for this MILL ROLL OPERATOR procedure are i n the results section. CELL COUNT WITH STAT 10/26/2021 4:22 PM Result s for this DIFFERENTIAL FLUID MILL ROLL OPERATOR procedure are in the results section. CT ABDOMEN PELVIS W STAT 10/26/2021 1:50 PM Re sults for this CONTRAST MILL ROLL OPERATOR procedure are i n the results section. CT CHEST W CONTRAST STAT 10/26/2021 12:34 Resu lts for this PM MILL ROLL OPERATOR procedure are i n the results section. BLOOD CULTURE STAT 10/26/2021 11:56 Results fo r this AM MILL ROLL OPERATOR procedure are i n the results section. COVID-19 VIRUS STAT 10/26/2021 11:46 Results f or this (CORONAVIRUS) BY PCR AM MILL ROLL OPERATOR procedu re are in the results section. ISTAT CREATININE POCT STAT 10/26/2021 11:15 Re sults for this AM MILL ROLL OPERATOR procedure are i n the results section. LACTIC ACID WHOLE STAT 10/26/2021 11:10 Result s for this BLOOD AM MILL ROLL OPERATOR procedure are i n the results section. BLOOD CULTURE STAT 10/26/2021 11:10 Results fo r this AM MILL ROLL OPERATOR procedure are i n the results section. EXTRA TUBE STAT 10/26/2021 10:43 Results for this AM MILL ROLL OPERATOR procedure are i n the results section. EXTRA GREEN TOP STAT 10/26/2021 10:43 Results for this (LITHIUM HEPARIN) TUBE AM MILL ROLL OPERATOR proce dure are in the results section. EXTRA BLUE TOP TUBE STAT 10/26/2021 10:43 Resu lts for this AM MILL ROLL OPERATOR procedure are i n the results section. INR STAT 10/26/2021 10:43 Results for this AM MILL ROLL OPERATOR procedure are i n the results section. PROTEIN TOTAL STAT 10/26/2021 10:43 Results fo r this AM MILL ROLL OPERATOR procedure are i n the results section. MAGNESIUM Routine 10/26/2021 10:43 Results for this AM MILL ROLL OPERATOR procedure are i n the results section. ETHYL ALCOHOL LEVEL STAT 10/26/2021 10:43 Resu lts for this AM MILL ROLL OPERATOR procedure are i n the results section. XR CHEST PORT 1 VIEW STAT 10/26/2021 10:32 Res ults for this AM MILL ROLL OPERATOR procedure are i n the results section. EKG 12-LEAD, TRACING STAT 10/26/2021 10:08 Res ults for this ONLY AM MILL ROLL OPERATOR procedure are i n the results section. EXTRA TUBE STAT 10/26/2021 10:05 Results for this AM MILL ROLL OPERATOR procedure are i n the results section. EXTRA PURPLE TOP TUBE STAT 10/26/2021 10:05 Re sults for this AM MILL ROLL OPERATOR procedure are i n the results section. EXTRA GREEN TOP STAT 10/26/2021 10:05 Results for this (LITHIUM HEPARIN) TUBE AM MILL ROLL OPERATOR proce dure are in the results section. CBC WITH PLATELETS AND STAT 10/26/2021 10:05 R esults for this DIFFERENTIAL AM MILL ROLL OPERATOR procedure are i n the results section. LACTATE DEHYDROGENASE STAT 10/26/2021 10:05 Re sults for this AM MILL ROLL OPERATOR procedure are i n the results section. CBC WITH PLATELETS & STAT 10/26/2021 10:05 Res ults for this DIFFERENTIAL AM MILL ROLL OPERATOR procedure are i n the results section. TROPONIN I STAT 10/26/2021 10:05 Results for this AM MILL ROLL OPERATOR procedure are i n the results section. NT PROBNP INPATIENT STAT 10/26/2021 10:05 Resu lts for this AM MILL ROLL OPERATOR procedure are i n the results section. LIPASE STAT 10/26/2021 10:05 Results for this AM MILL ROLL OPERATOR procedure are i n the results section. COMPREHENSIVE STAT 10/26/2021 10:05 Results fo r this METABOLIC PANEL AM MILL ROLL OPERATOR procedure ar e in the results section. documented in this encounter Results Potassium (10/28/2021 5:56 AM MILL ROLL OPERATOR) athologist Signature Potassium 3.5 3.4 - 5.3 10/28/2021 [facility] mmol/L 6:41 AM MILL ROLL OPERATOR Specimen Anatomical Collection Method / Collection Time Recei delma Time (Source) Location / Volume Laterality Blood TOPOGRAPHY UNKNOWN Venipuncture / 10/28/2021 5:56 10/19 6:25 / Unknown Unknown AM MILL ROLL OPERATOR AM MILL ROLL OPERATOR Manjit Woodward DO LAB - BLOOD ORDERABLES Performing Organization Address City/State/ZIP Code Phon [place] [address] [facility] [address] Lab (1st floor, no room number) Magnesium (10/28/2021 5:56 AM MILL ROLL OPERATOR) athologist Signature Magnesium 1.7 1.6 - 2.3 10/28/2021 [facility] mg/dL 6:43 AM MILL ROLL OPERATOR Specimen Anatomical Collection Method / Collection Time Recei delma Time (Source) Location / Volume Laterality Blood TOPOGRAPHY UNKNOWN Venipuncture / 10/28/2021 5:56 10/19 6:25 / Unknown Unknown AM MILL ROLL OPERATOR AM MILL ROLL OPERATOR Manjit Woodward DO LAB - BLOOD ORDERABLES Performing Organization Address City/State/ZIP Code [place] [id number] [facility] [address] Lab (1st floor, no room number) Gram stain (10/27/2021 8:38 PM MILL ROLL OPERATOR) [facility] gist Method Time Signature Gram Stain >10 Squamous 10/27/2021 [facility] Result epithelial 11:41 PM MILL ROLL OPERATOR LABORATORY cells/low power field Gram Stain >25 PMNs/low 10/27/2021 [facility] Result power field 11:41 PM MILL ROLL OPERATOR LABORATORY Gram Stain 4+ Mixed edson 10/27/2021 [facility] IDD Result 11:41 PM MILL ROLL OPERATOR LABORATORY Specimen Anatomical Collection Method Collection Time Receive d Time (Source) Location / / Volume Laterality Sputum SPUTUM / Unknown Non-blood 10/27/2021 8:38 PM 10/27 8:49 Collection / MILL ROLL OPERATOR PM MILL ROLL OPERATOR Unknown Manjit Woodward DO LAB - MICRO GENERAL ORDERABL ES Performing Organization Address City/State/ZIP Code Phon e Number [facility] IDD LABORATORY [facility] [place] [phone] Diag. Lab [address] [facility], Room [address] [facility] IDD LABORATORY [facility] Infectious [place], [place] [phone] Diseases Diagnostic [id number], [facility] Lab (IDDL) [address] [facility], Room [address] XR Chest 2 Views (10/27/2021 4:32 PM MILL ROLL OPERATOR) Anatomical Region Laterality Modality Chest Digital Radiography Specimen (Source) Anatomical Location Collection Method / Collectio n Time Received Time / Laterality Volume Impressions 10/27/2021 4:38 PM MILL ROLL OPERATOR IMPRESSION: Small right-sided pneumothorax loculated at the right lung base has not appreciably changed in size , status post removal of right chest tube. However, a tiny right apical pneumothorax is now visible. Small amount of pleural fluid on the rig ht as well. Scattered strands of scarring or fibrosis in each lung are stable. Multiple old, healed left rib fractures. JUANY JUDGE MD SYSTEM ID: ??[id number] Narrative 10/27/2021 4:38 PM MILL ROLL OPERATOR XR CHEST 2 VW 10/27/2021 4:32 PM ?? INDICATION: post pull chest tube COMPARISON: 10/27/2021 at 0952 hours Procedure Note Juany Judge MD - 10/27/2021Fo rmatting of this note might be different from the original. XR CHEST 2 VW 10/27/2021 4:32 PM INDICATION: post pull chest tube COMPARISON: 10/27/2021 at 0952 hours IMPRESSION: Small right-sided pneumothor ax loculated at the right lung base has not appreciably changed in size , status post removal of right chest tube. However, a tiny right apical pneumothorax is now visible. Small amount of pleural fluid on the rig ht as well. Scattered strands of scarring or fibrosis in each lung are stable. Multiple old, healed left rib fractures. JUANY JUDGE MD SYSTEM ID: [id number] Jeanie Lambert PA-C IMG DIAGNOSTIC IMAGIN G ORDERABLES Potassium (10/27/2021 3:16 PM MILL ROLL OPERATOR) athologist Signature Potassium 3.6 3.4 - 5.3 10/27/2021 [facility] LAB[facility]ATORY mmol/L 3:39 PM MILL ROLL OPERATOR Specimen Anatomical Collection Method / Collection Time Recei delma Time (Source) Location / Volume Laterality Blood STRUCTURE OF LEFT Venipuncture / 10/27/2021 3:16 10/27 3:22 UPPER LIMB / Unknown PM MILL ROLL OPERATOR PM MILL ROLL OPERATOR Unknown Manjit Woodward DO LAB - BLOOD ORDERABLES Performing Organization Address City/State/ZIP Code Phon [place] [address] Care Lab [address] Lab (1st floor, no room number) Respiratory Aerobic Bacterial Culture (10/27/2021 10:24 AM MILL ROLL OPERATOR) [facility] gist Method Time Signature Culture >10 Squamous 10/27/2021 U[facility] IDD epithelial 2:46 PM MILL ROLL OPERATOR LABORATORY cells/low power field indicates oral contamination. Please recollect. Gram Stain >10 Squamous 10/27/2021 [facility] IDD Result epithelial 2:46 PM MILL ROLL OPERATOR LABORATORY cells/low power field Gram Stain >25 PMNs/low 10/27/2021 [facility] IDD Result power field 2:46 PM MILL ROLL OPERATOR LABORATORY Gram Stain 3+ Mixed edson 10/27/2021 [facility] IDD Result 2:46 PM MILL ROLL OPERATOR LABORATORY Specimen Anatomical Collection Method Collection Time Receive d Time (Source) Location / / Volume Laterality Sputum SPUTUM / Unknown Non-blood 10/27/2021 10:24 021 Collection / AM MILL ROLL OPERATOR 10:39 AM MILL ROLL OPERATOR Unknown Zion Mijares MD LAB - MICRO GENERAL ORDERABL ES Performing Organization Address City/State/ZIP Code Phon e Number [facility] IDD LABORATORY [facility] [place] [place] [phone] Diag. Lab [address] [facility], Room [address] [facility] IDD LABORATORY [facility] Infectious [place], [place] [phone] Diseases Diagnostic [id number], [facility] Lab (IDDL) [address] [facility], [address] XR Chest 2 Views (10/27/2021 10:04 AM MILL ROLL OPERATOR) Anatomical Region Laterality Modality Chest Digital Radiography Specimen (Source) Anatomical Location Collection Method / Collectio n Time Received Time / Laterality Volume Impressions 10/27/2021 10:17 AM MILL ROLL OPERATOR IMPRESSION: Small right basilar pneumothorax with indwelling chest tube. FEDE DORSEY MD Narrative 10/27/2021 10:17 AM MILL ROLL OPERATOR CHEST TWO VIEWS ??10/27/2021 10:04 AM HISTORY: Right hydropneumothorax on CT. Status post chest tube placement. COMPARISON: 10/26/2021 FINDINGS: Right basilar chest tube has n early completely evacuated pleural fluid, but there is a small amou nt of pleural air at the right lung base, suggestive of trapped lung. N o pneumothorax or pleural effusion on the left. Procedure Note Fede Dorsey MD - 10/27/2021Forma tting of this note might be different from the original. CHEST TWO VIEWS 10/27/2021 10:04 AM HISTORY: Right hydropneumothorax on CT. Status post chest tube placement. COMPARISON: 10/26/2021 FINDINGS: Right basilar chest tube has n early completely evacuated pleural fluid, but there is a small amou nt of pleural air at the right lung base, suggestive of trapped lung. N o pneumothorax or pleural effusion on the left. IMPRESSION: Small right basilar pneumoth orax with indwelling chest tube. FEDE DORSEY MD Juan Mistry MD IMG DIAGNOSTIC IMAGING ORDER SHA Magnesium (10/27/2021 6:25 AM MILL ROLL OPERATOR) P athologist Signature Magnesium 1.8 1.6 - 2.3 10/27/2021 [facility] mg/dL 7:16 AM MILL ROLL OPERATOR Specimen Anatomical Collection Method / Collection Time Recei delma Time (Source) Location / Volume Laterality Blood STRUCTURE OF LEFT Venipuncture / 10/27/2021 6:25 10/27 6:45 UPPER LIMB / Unknown AM MILL ROLL OPERATOR AM MILL ROLL OPERATOR Unknown Zion Mijares MD LAB - BLOOD ORDERABLES Performing Organization Address City/State/ZIP Code Ph[place] [address] Care Lab [address] Lab (1st floor, no room number) (ABNORMAL) CBC with platelets (10/27/2021 6:25 AM MILL ROLL OPERATOR) Patholo gist Method Time Signature WBC Count 7.8 4.0 - 11.0 10/27/2021 [facility] LAB[facility] 10e3/uL 6:51 AM MILL ROLL OPERATOR RBC Count 3.12 (L) 4.40 - 10/27/2021 [facility] LAB[facility]AT[facility] 5.90 6:51 AM MILL ROLL OPERATOR 10e6/uL Hemoglobin 9.7 (L) 13.3 - 10/27/2021 [facility] 17.7 g/dL 6:51 AM MILL ROLL OPERATOR Hematocrit 31.0 (L) 40.0 - 10/27/2021 [facility] 53.0 % 6:51 AM MILL ROLL OPERATOR MCV 99 78 - 100 10/27/2021 [facility] fL 6:51 AM MILL ROLL OPERATOR MCH 31.1 26.5 - 10/27/2021 [facility] 33.0 pg 6:51 AM MILL ROLL OPERATOR MCHC 31.3 (L) 31.5 - 10/27/2021 [facility] 36.5 g/dL 6:51 AM MILL ROLL OPERATOR RDW 15.4 (H) 10.0 - 10/27/2021 [facility] 15.0 % 6:51 AM MILL ROLL OPERATOR Platelet Count 263 150 - 450 10/27/2021 [facility] LAB[facility]AT[facility] 10e3/uL 6:51 AM MILL ROLL OPERATOR Specimen Anatomical Collection Method / Collection Time Recei delma Time (Source) Location / Volume Laterality Blood STRUCTURE OF LEFT Venipuncture / 10/27/2021 6:25 10/27 6:45 UPPER LIMB / Unknown AM MILL ROLL OPERATOR AM MILL ROLL OPERATOR Unknown Zion Mijares MD LAB - BLOOD ORDERABLES Performing Organization Address City/State/ZIP Code [place] [address] Care Lab [address] Lab (1st floor, no room number) (ABNORMAL) Comprehensive metabolic panel (10/27/2021 6:25 AM MILL ROLL OPERATOR) [facility] gist Method Time Signature Sodium 139 133 - 144 10/27/2021 LABORATORY mmol/L 7:16 AM MILL ROLL OPERATOR Potassium 3.1 (L) 3.4 - 5.3 10/27/2021 [facility] mmol/L 7:16 AM MILL ROLL OPERATOR Chloride 111 (H) 94 - 109 10/27/2021 [facility] mmol/L 7:16 AM MILL ROLL OPERATOR Carbon Dioxide 24 20 - 32 10/27/2021 LABORATORY (CO2) mmol/L 7:16 AM MILL ROLL OPERATOR Anion Gap 4 3 - 14 10/27/2021 [facility] mmol/L 7:16 AM MILL ROLL OPERATOR Urea Nitrogen 7 7 - 30 10/27/2021 [facility] mg/dL 7:16 AM MILL ROLL OPERATOR Creatinine 0.70 0.66 - 10/27/2021 [facility] 1.25 mg/dL 7:16 AM MILL ROLL OPERATOR Calcium 7.7 (L) 8.5 - 10.1 10/27/2021 [facility] mg/dL 7:16 AM MILL ROLL OPERATOR Glucose 74 70 - 99 10/27/2021 [facility] mg/dL 7:16 AM MILL ROLL OPERATOR Alkaline 59 40 - 150 10/27/2021 [facility] Phosphatase U/L 7:16 AM MILL ROLL OPERATOR AST 11 0 - 45 U/L 10/27/2021 [facility] 7:16 AM MILL ROLL OPERATOR ALT 6 0 - 70 U/L 10/27/2021 [facility]OR[facility] 7:16 AM MILL ROLL OPERATOR Protein Total 5.6 (L) 6.8 - 8.8 10/27/2021 [facility] g/dL 7:16 AM MILL ROLL OPERATOR Albumin 1.8 (L) 3.4 - 5.0 10/27/2021 [facility] g/dL 7:16 AM MILL ROLL OPERATOR Bilirubin Total 0.4 0.2 - 1.3 10/27/2021 [facility] mg/dL 7:16 AM MILL ROLL OPERATOR GFR Estimate >90 >60 10/27/2021 [facility] mL/min/1.7 7:16 AM MILL ROLL OPERATOR 3m2 Comment: As of May 29, 2021, eGFR is ca lculated by the CKD-EPI creatinine equation, without race adjustment. eGFR can be inf luenced by muscle mass, exercise, and diet. The reported eGFR is an estimation only and is only applicable if the renal function is stable. Specimen Anatomical Collection Method / Collection Time Recei delma Time (Source) Location / Volume Laterality Blood STRUCTURE OF LEFT Venipuncture / 10/27/2021 6:25 10/27 6:45 UPPER LIMB / Unknown AM MILL ROLL OPERATOR AM MILL ROLL OPERATOR Unknown Zion Mijares MD LAB - BLOOD ORDERABLES Performing Organization Address City/[facility]/[place] [phone] Care Lab [address] Lab (1st floor, no room number) Potassium (10/26/2021 6:30 PM MILL ROLL OPERATOR) P athologist Signature Potassium 3.5 3.4 - 5.3 10/26/2021 [facility] mmol/L 7:31 PM MILL ROLL OPERATOR Specimen Anatomical Collection Method / Collection Time Recei delma Time (Source) Location / Volume Laterality Blood STRUCTURE OF LEFT Venipuncture / 10/26/2021 6:30 10/26 6:37 UPPER LIMB / Unknown PM MILL ROLL OPERATOR PM MILL ROLL OPERATOR Unknown Zion Mijares MD LAB - BLOOD ORDERABLES Performing Organization Address City/State/[place] [phone] Care Lab [address] Lab (1st floor, no room number) Magnesium (10/26/2021 5:35 PM MILL ROLL OPERATOR) P athologist Signature Magnesium 1.9 1.6 - 2.3 10/26/2021 [facility] mg/dL 5:57 PM MILL ROLL OPERATOR Specimen Anatomical Collection Method / Collection Time Recei delma Time (Source) Location / Volume Laterality Blood STRUCTURE OF LEFT Venipuncture / 10/26/2021 5:35 10/26 5:41 UPPER LIMB / Unknown PM MILL ROLL OPERATOR PM MILL ROLL OPERATOR Unknown Zion Mijares MD LAB - BLOOD ORDERABLES Performing Organization Address City/State/[place] [address] Care Lab [address] Lab (1st floor, no room number) US Chest Tube Insert (10/26/2021 5:22 PM MILL ROLL OPERATOR) Anatomical Region Laterality Modality Chest Ultrasound Specimen (Source) Anatomical Location Collection Method / Collectio n Time Received Time / Laterality Volume Impressions 11/01/2021 8:34 AM MILL ROLL OPERATOR IMPRESSION: Successful placement of right 12 Surinamese chest tube. Sample of fluid sent to the lab for evaluation. Will maintain water seal and gravity suction for the time being, like ly convert to suction the following day. Chest x-ray ordered for t he following morning. JUAN MISTRY MD Narrative 11/01/2021 8:34 AM MILL ROLL OPERATOR ULTRASOUND CHEST TUBE INSERT October 26, 2021 at 1722 hours HISTORY: 61-year-old patient with histor y of right hydropneumothorax. Some vague reported history of possible lung abscess at outside institution, though imaging unavailable. Specific request made by thoracic surgery for chest tube placemen t. TECHNIQUE: Patient was brought to the ra diology department and informed consent obtained. Patient was p laced sitting in an upright position. Skin overlying the posterolate ral right hemithorax was prepped and draped in standard sterile f ashion. With continuous ultrasound guidance, 12 Surinamese pigtail c hest tube was placed. 10 mL of 1% lidocaine administered. The tube was placed to waterseal and initially with gravity drainage. Clear y ellow fluid was drained. Sample was sent to the lab for evaluatio n. The tube was secured in place and will be maintained at gravity drainage for the time being. Suction drainage may be considered after initial drainage of volume. Procedure Note Juan Mistry MD - 11/01/2021 ULTRASOUND CHEST TUBE INSERT October 26, 2021 at 1722 hours HISTORY: 61-year-old patient with histor y of right hydropneumothorax. Some vague reported history of possible lung abscess at outside institution, though imaging unavailable. Specific request made by thoracic surgery for chest tube placemen t. TECHNIQUE: Patient was brought to the ra diology department and informed consent obtained. Patient was p laced sitting in an upright position. Skin overlying the posterolate ral right hemithorax was prepped and draped in standard sterile f ashion. With continuous ultrasound guidance, 12 Surinamese pigtail c hest tube was placed. 10 mL of 1% lidocaine administered. The tube was placed to waterseal and initially with gravity drainage. Clear y ellow fluid was drained. Sample was sent to the lab for evaluatio n. The tube was secured in place and will be maintained at gravity drainage for the time being. Suction drainage may be considered after initial drainage of volume. IMPRESSION: Successful placement of righ t 12 Surinamese chest tube. Sample of fluid sent to the lab for evaluation. Will maintain water seal and gravity suction for the time being, like ly convert to suction the following day. Chest x-ray ordered for t he following morning. JUAN MISTRY MD Yunier Alvarez MD [facility] ORDERABLES Differential Body Fluid (10/26/2021 4:22 PM MILL ROLL OPERATOR) P athologist Signature % Neutrophils 7 % ANGELICA 10/26/2021 LABORATORY 7:05 PM MILL ROLL OPERATOR % Lymphocytes 46 % ANGELICA 10/26/2021 LABORATORY 7:05 PM MILL ROLL OPERATOR % 11 % ANGELICA 10/26/2021 LABORATORY Monocyte/Macroph 7:05 PM MILL ROLL OPERATOR ages % Eosinophils 36 % ANGELICA 10/26/2021 LABORATORY 7:05 PM MILL ROLL OPERATOR Specimen Anatomical Collection Method Collection Time Receive d Time (Source) Location / / Volume Laterality Pleural fluid STRUCTURE OF RIGHT Non-blood 10/26/2021 4:22 PM 4:52 PLEURAL CAVITY / Collection / MILL ROLL OPERATOR PM MILL ROLL OPERATOR Unknown Unknown Narrative LABORATORY - 10/26/2021 7:05 PM MILL ROLL OPERATOR No reference ranges have been establishe d. This result should be interpreted in the context of the patient's clinical condit ion and compared to simultaneous measurement in the patient's blood. Yunier Alvarez MD LAB - BODY FLUIDS ORDERABLES Performing Organization Address City/State/ZIP Code [place] [address] Care Lab [address] Lab (1st floor, no room number) (ABNORMAL) Cell Count Body Fluid (10/26/2021 4:22 PM MILL ROLL OPERATOR) [facility] gist Method Time Signature Color Yellow Colorless, ANGELICA 10/26/2021 LABORATORY Yellow 7:05 PM MILL ROLL OPERATOR Clarity Cloudy (A) Clear, ANGELICA 10/26/2021 [facility] LABORATORY Bloody 7:05 PM MILL ROLL OPERATOR Total 1,070 /uL ANGELICA 10/26/2021 [facility] LABORAT[facility] Nucleated 7:05 PM MILL ROLL OPERATOR Cells Specimen Anatomical Collection Method Collection Time Receive d Time (Source) Location / / Volume Laterality Pleural fluid STRUCTURE OF RIGHT Non-blood 10/26/2021 4:22 PM 4:52 PLEURAL CAVITY / Collection / MILL ROLL OPERATOR PM MILL ROLL OPERATOR Unknown Unknown Narrative LABORATORY - 10/26/2021 7:05 PM MILL ROLL OPERATOR No reference ranges have been established. ??This result should be interpreted in the context of the patient's clinical condition and compared to simultaneous measurement in the patient's blood. ?? Yunier Alvarez MD LAB - BODY FLUIDS ORDERABLES Performing Organization Address [facility]/ZIP Code [place] [address] Care Lab [address] Lab (1st floor, no room number) Cytology, non-gynecologic (10/26/2021 4:22 PM MILL ROLL OPERATOR) Component Value Ref Test Analysis Performed At [facility] Method Time Signature Final Specimen A 10/28/2021 RH Electron ically Diagnosis 1:37 PM MILL ROLL OPERATOR LABORATORY signed by Interpretation: Yojana Schuster MD on Negative for malignancy 10/28/2021 at 1:36 PM Adequacy: Satisfactory for evaluation Clinical Pleural 10/28/2021 [facility] OGDEN Information Effusion[right 1:37 PM MILL ROLL OPERATOR LABORATORY Gross A. Pleural Cavity, Right, , Pleural Fluid: 10/28/2021 [facility] Description Received 3 ml of cloudy, yel low fluid, processed as 1 Pap stained Autocyte, 1 Contreras stained cytospin and one hematoxylin and eosin stained cell block. 1:37 PM MILL ROLL OPERATOR LABORATORY Performing The technical 10/28/2021 [facility] component of 1:37 PM MILL ROLL OPERATOR LABORATORY this testing was completed at [facility] Specimen Anatomical Collection Method Collection Time Receive d Time (Source) Location / / Volume Laterality Pleural fluid STRUCTURE OF RIGHT Non-blood 10/26/2021 4:22 PM 4:52 PLEURAL CAVITY / Collection / MILL ROLL OPERATOR PM MILL ROLL OPERATOR Unknown Unknown Comment: Collect pleural fluid when Thor acentesis procedure performed Specimen must be collected in a Sterile - Plastic Leak proof lab container. Yunier Alvarez MD LAB - BEAKER AP Performing Organization Address City/[facility]/ZIP Code [place] [phone] Care Lab [address] Lab (1st floor, no room number) [facility] LABORATORY [address] [place] [phone] , [place] Protein fluid (10/26/2021 4:22 PM MILL ROLL OPERATOR) P athologist Signature Protein Total 3.5 g/dL 10/26/2021 [facility] LABORATORY Fluid 5:44 PM MILL ROLL OPERATOR Specimen Anatomical Collection Method Collection Time Receive d Time (Source) Location / / Volume Laterality Pleural fluid STRUCTURE OF RIGHT Non-blood 10/26/2021 4:22 PM 4:52 PLEURAL CAVITY / Collection / MILL ROLL OPERATOR PM MILL ROLL OPERATOR Unknown Unknown Narrative LABORATORY - 10/26/2021 5:44 PM MILL ROLL OPERATOR No reference ranges have been established. ??This result should be interpreted in the context of the patient's clinical condition and compared to simultaneous measurement in the patient's blood. This is a lab developed test. It has not been cleared or approved by the FDA. Yunier Alvarez MD LAB - BODY FLUIDS ORDERABLES Performing Organization Address City/[facility]/ZIP Code [place] [phone] Care Lab [address] Lab (1st floor, no room number) Lactate dehydrogenase fluid (10/26/2021 4:22 PM MILL ROLL OPERATOR) Patholo gist Method Time Signature Lactate 363 U/L 10/26/2021 LABORATORY dehydrogenase 5:43 PM MILL ROLL OPERATOR fluid Specimen Anatomical Collection Method Collection Time Receive d Time (Source) Location / / Volume Laterality Pleural fluid STRUCTURE OF RIGHT Non-blood 10/26/2021 4:22 PM 4:52 PLEURAL CAVITY / Collection / MILL ROLL OPERATOR PM MILL ROLL OPERATOR Unknown Unknown Narrative LABORATORY - 10/26/2021 5:43 PM MILL ROLL OPERATOR No reference ranges have been establishe d. ??This result should be interpreted in the context of the patient's clinical condit ion and compared to simultaneous measurement in the patient's blood. Yunier Alvarez MD LAB - BODY FLUIDS ORDERABLES Performing Organization Address City/[facility]/ZIP Code [place] [address] Care Lab [address] Lab (1st floor, no room number) Glucose fluid (10/26/2021 4:22 PM MILL ROLL OPERATOR) P athologist Signature Glucose fluid 82 mg/dL 10/26/2021 LABORATORY 5:38 PM MILL ROLL OPERATOR Specimen Anatomical Collection Method Collection Time Receive d Time (Source) Location / / Volume Laterality Pleural fluid STRUCTURE OF RIGHT Non-blood 10/26/2021 4:22 PM 4:52 PLEURAL CAVITY / Collection / MILL ROLL OPERATOR PM MILL ROLL OPERATOR Unknown Unknown Narrative LABORATORY - 10/26/2021 5:38 PM MILL ROLL OPERATOR No reference ranges have been established. ??This result should be interpreted in the context of the patient's clinical condition and compared to simultaneous measurement in the patient's blood. This is a lab developed test. It has not been cleared or approved by the FDA. Yunier Alvarez MD LAB - BODY FLUIDS ORDERABLES Performing Organization Address City/[facility]/ZIP Code [place] [address] Care Lab [address] Lab (1st floor, no room number) Pleural fluid Aerobic Bacterial Culture Routine with Gram Stain (10/26/2021 4:22 PM MILL ROLL OPERATOR) Patholo gist Method Time Signature Culture No Growth ANGELICA 10/31/2021 UU IDD 7:33 AM MILL ROLL OPERATOR LABORATORY Gram Stain No organisms 10/31/2021 [facility] IDD Result seen 7:33 AM MILL ROLL OPERATOR LABORATORY Gram Stain 1+ WBC seen 10/31/2021 [facility] IDD Result 7:33 AM MILL ROLL OPERATOR LABORATORY Specimen Anatomical Collection Method Collection Time Receive d Time (Source) Location / / Volume Laterality Pleural fluid STRUCTURE OF RIGHT Non-blood 10/26/2021 4:22 PM 4:52 PLEURAL CAVITY / Collection / MILL ROLL OPERATOR PM MILL ROLL OPERATOR Unknown Unknown Yunier Alvarez MD LAB - MICRO GENERAL ORDERABL ES Performing Organization Address City/State/ZIP Code Phon e Number [facility] IDD LABORATORY [facility] [place] [place] [phone] Diag. Lab [address] [facility], [address] [facility] IDD LABORATORY [facility] Infectious [place], [place] [phone] Diseases Diagnostic [id number], [facility] Lab (IDDL) [address] [facility], [address] CT Abdomen Pelvis w Contrast (10/26/2021 1:50 PM MILL ROLL OPERATOR) Anatomical Region Laterality Modality Abdomen/Pelvis, SUBRAD CT BODY, P CT ABDOMEN PELVIS, Computed Tomography RAD CT Specimen (Source) Anatomical Location Collection Method / Collectio n Time Received Time / Laterality Volume Impressions 10/26/2021 3:48 PM MILL ROLL OPERATOR IMPRESSION: 1. Extensive pancreatic parenchymal calc ification, likely related to history of chronic pancreatitis. 2. Small amount of free fluid in the upp er abdomen and pelvis, of indeterminate etiology. 3. Significant gastric wall thickening p redominantly of the distal stomach, can be seen with acute gastriti s versus less likely gastric malignancy, recommend further evaluation with upper endoscopy. 4. Diffuse colonic wall thickening, nons pecific, can be seen with diffuse colitis. 5. Mild diffuse mucosal enhancement of t he gallbladder, of indeterminate etiology, can be further e valuated with right upper quadrant abdominal ultrasound if clinica lly warranted. CLAIR CUEVA MD Narrative 10/26/2021 3:[address] ABDOMEN AND PELVIS WITH CONTRAST ?? 10/26/2021 1:50 PM HISTORY: Epigastric pain. Chronic pancre atitis, free fluid seen on chest CT. TECHNIQUE: ??CT abdomen and pelvis with 50 mL [id number] IV. Radiation dose for this scan was reduced using aut omated exposure control, adjustment of the mA and/or kV according to patient size, or iterative reconstruction technique. COMPARISON: Chest CT on same day earlier and CT abdomen and pelvis on 04/16/2020. FINDINGS: Lower chest: Moderate right pleural effu gianna and associated basilar atelectasis/consolidation. Small right p neumothorax better seen on same day chest CT. Abdomen/pelvis: Hepatobiliary: No suspicious focal hepat ic lesion. Diffuse mural enhancement of the gallbladder of indete rminate etiology. Pancreas: Diffuse pancreatic parenchymal calcification, likely related to history of chronic pancreatitis. No d efinite solid pancreatic mass visualized on this single-phase CT. Spleen: No splenomegaly. Adrenal glands: Diffuse thickening witho ut discrete nodularity of the left adrenal gland. No right adrenal nod ule. Kidneys: Contrast within the renal colle cting system, precludes detailed evaluation for kidney stones. Bowel: Diffuse gastric wall thickening p redominantly of the distal stomach, of indeterminate etiology. Mild diffuse colonic wall thickening, of indeterminate etiology, c ould be due to underlying colitis. Peritoneum: Small amount of free fluid i n the upper abdomen and pelvis. Pelvic organs: The prostate gland is enl arged measuring approximately 5.2 cm in transverse diameter. Vascular: Extensive atherosclerotic vasc ular calcification of the abdominal aorta and iliac vessels. Lymph nodes: Multiple prominent but not significantly enlarged abdominopelvic lymph nodes, indeterminat e, could be reactive. Bones and soft tissue: No suspicious oss eous lesion. Procedure Note Clair Cueva MD - 10/26/2021Forma tting of this note might be different from the original. CT ABDOMEN AND PELVIS WITH CONTRAST 10/26 1:50 PM HISTORY: Epigastric pain. Chronic pancre atitis, free fluid seen on chest CT. TECHNIQUE: CT abdomen and pelvis with 50 mL Isovue-370 IV. Radiation dose for this scan was reduced using aut omated exposure control, adjustment of the mA and/or kV according to patient size, or iterative reconstruction technique. COMPARISON: Chest CT on same day earlier and CT abdomen and pelvis on 04/16/2020. FINDINGS: Lower chest: Moderate right pleural effu gianna and associated basilar atelectasis/consolidation. Small right p neumothorax better seen on same day chest CT. Abdomen/pelvis: Hepatobiliary: No suspicious focal hepat ic lesion. Diffuse mural enhancement of the gallbladder of indete rminate etiology. Pancreas: Diffuse pancreatic parenchymal calcification, likely related to history of chronic pancreatitis. No d efinite solid pancreatic mass visualized on this single-phase CT. Spleen: No splenomegaly. Adrenal glands: Diffuse thickening witho ut discrete nodularity of the left adrenal gland. No right adrenal nod ule. Kidneys: Contrast within the renal colle cting system, precludes detailed evaluation for kidney stones. Bowel: Diffuse gastric wall thickening p redominantly of the distal stomach, of indeterminate etiology. Mild diffuse colonic wall thickening, of indeterminate etiology, c ould be due to underlying colitis. Peritoneum: Small amount of free fluid i n the upper abdomen and pelvis. Pelvic organs: The prostate gland is enl arged measuring approximately 5.2 cm in transverse diameter. Vascular: Extensive atherosclerotic vasc ular calcification of the abdominal aorta and iliac vessels. Lymph nodes: Multiple prominent but not significantly enlarged abdominopelvic lymph nodes, indeterminat e, could be reactive. Bones and soft tissue: No suspicious oss eous lesion. IMPRESSION: 1. Extensive pancreatic parenchymal calc ification, likely related to history of chronic pancreatitis. 2. Small amount of free fluid in the upp er abdomen and pelvis, of indeterminate etiology. 3. Significant gastric wall thickening p redominantly of the distal stomach, can be seen with acute gastriti s versus less likely gastric malignancy, recommend further evaluation with upper endoscopy. 4. Diffuse colonic wall thickening, nons pecific, can be seen with diffuse colitis. 5. Mild diffuse mucosal enhancement of t he gallbladder, of indeterminate etiology, can be further e valuated with right upper quadrant abdominal ultrasound if clinica lly warranted. CLAIR CUEVA MD Yunier Alvarez MD IMG CT ORDERABLES CT Chest w Contrast (10/26/2021 12:34 PM MILL ROLL OPERATOR) Anatomical Region Laterality Modality Chest, SUBRAD CT BODY, UMP CT CHEST, RAD CT Computed Tomography Specimen (Source) Anatomical Location Collection Method / Collectio n Time Received Time / Laterality Volume Impressions 10/26/2021 1:34 PM MILL ROLL OPERATOR IMPRESSION: 1. Small right apical predominant pneumo thorax. 2. Small to moderate right pleural effus ion and associated basilar atelectasis/consolidation. 3. Extensive upper lobes predominant emp hysematous changes. 4. 7 mm right upper lobe pulmonary nodul e, as per Fleischner society criteria, recommend follow-up exam in 6 months to assess for interval change. 5. Frothy debris versus mucoid impaction in the right lower and middle lobes bronchi, suggesting possible aspir ation. 6. Extensive pancreatic parenchymal calc ification, likely related to history of chronic pancreatitis. 7. Small amount of free fluid in the upp er abdomen of undetermined etiology. CLAIR CUEVA MD Narrative 10/26/2021 1:[address] CHEST W CONTRAST ??10/26/2021 12:34 PM HISTORY: ??Respiratory illness, nondiagn ostic x-ray. Outside CT with right hydropneumothorax, and probable ab scess within the right middle lobe, seen on outpatient CT scan last we ek, unable to obtain images. TECHNIQUE: Scans obtained from the apice s through the diaphragm with IV contrast. 50 mL Isovue-370 IV injecte d. Radiation dose for this scan was reduced using automated exposur e control, adjustment of the mA and/or kV according to patient size, or iterative reconstruction technique. COMPARISON: ??Chest x-ray on same day ea darrion. FINDINGS: Chest/mediastinum: No cardiomegaly or si gnificant pericardial effusion. Extensive atherosclerotic vasc ular calcification of the coronary arteries and thoracic aorta. No significant mediastinal, hilar or axillary lymphadenopathy. Lungs and pleura: Small to moderate righ t pleural effusion and associated basilar atelectasis/consolida tion. Extensive upper lobe predominant emphysematous changes. Small right apical predominant pneumothorax. No left pneumothorax. No l eft pleural effusion. There is 7 mm right apical nodule (series 5 image 71). Frothy debris versus mucoid impaction in the right lower and middle lobe bronchi, suggesting possible aspiration. Upper abdomen: Limited evaluation of upp er abdomen due to lack of coverage. Extensive pancreatic parenchym al calcification, likely related to a history of chronic pancreat itis. Small amount of free fluid in the upper abdomen of indetermin ate etiology. Bones and soft tissue: Multilevel degene rative changes of the spine. Multiple old rib fractures. Procedure Note Clair Cueva MD - 10/26/2021Forma tting of this note might be different from the original. CT CHEST W CONTRAST 10/26/2021 12:34 PM HISTORY: Respiratory illness, nondiagnos tic x-ray. Outside CT with right hydropneumothorax, and probable ab scess within the right middle lobe, seen on outpatient CT scan last we ek, unable to obtain images. TECHNIQUE: Scans obtained from the apice s through the diaphragm with IV contrast. 50 mL Isovue-370 IV injecte d. Radiation dose for this scan was reduced using automated exposur e control, adjustment of the mA and/or kV according to patient size, or iterative reconstruction technique. COMPARISON: Chest x-ray on same day renetta ier. FINDINGS: Chest/mediastinum: No cardiomegaly or si gnificant pericardial effusion. Extensive atherosclerotic vasc ular calcification of the coronary arteries and thoracic aorta. No significant mediastinal, hilar or axillary lymphadenopathy. Lungs and pleura: Small to moderate righ t pleural effusion and associated basilar atelectasis/consolida tion. Extensive upper lobe predominant emphysematous changes. Small right apical predominant pneumothorax. No left pneumothorax. No l eft pleural effusion. There is 7 mm right apical nodule (series 5 image 71). Frothy debris versus mucoid impaction in the right lower and middle lobe bronchi, suggesting possible aspiration. Upper abdomen: Limited evaluation of upp er abdomen due to lack of coverage. Extensive pancreatic parenchym al calcification, likely related to a history of chronic pancreat itis. Small amount of free fluid in the upper abdomen of indetermin ate etiology. Bones and soft tissue: Multilevel degene rative changes of the spine. Multiple old rib fractures. IMPRESSION: 1. Small right apical predominant pneumo thorax. 2. Small to moderate right pleural effus ion and associated basilar atelectasis/consolidation. 3. Extensive upper lobes predominant emp hysematous changes. 4. 7 mm right upper lobe pulmonary nodul e, as per Fleischner society criteria, recommend follow-up exam in 6 months to assess for interval change. 5. Frothy debris versus mucoid impaction in the right lower and middle lobes bronchi, suggesting possible aspir ation. 6. Extensive pancreatic parenchymal calc ification, likely related to history of chronic pancreatitis. 7. Small amount of free fluid in the upp er abdomen of undetermined etiology. CLAIR CUEVA MD Yunier Alvarez MD IMG CT ORDERABLES Blood Culture Peripheral Blood (10/26/2021 11:56 AM MILL ROLL OPERATOR) P athologist Signature Culture No Growth 10/31/2021 [facility] ID[facility] 4:03 PM MILL ROLL OPERATOR LABORATORY Specimen Anatomical Collection Method / Collection Time Recei delma Time (Source) Location / Volume Laterality Blood BLOOD SPECIMEN / Venipuncture / 10/26/2021 11:56 10/26 Unknown Unknown AM MILL ROLL OPERATOR 12:00 PM MILL ROLL OPERATOR Yunier Alvarez MD LAB - MICRO GENERAL ORDERABL ES Performing Organization Address City/State/ZIP Code Phon e Number [facility] LABORATORY [facility] [place] [id number] Diag. Lab [address] [facility], [address] [facility] Infectious [place], [place] [phone] Diseases Diagnostic [id number], [facility] Lab (IDDL) [address] [facility], [address] Asymptomatic COVID-19 Virus (Coronavirus) by PCR Nasopharyngeal (10/26/2021 11:46 AM MILL ROLL OPERATOR) Analysis Performed At Patho logist Time Signature SARS CoV2 PCR Negative Negative 10/26/2021 LABORATORY 1:43 PM MILL ROLL OPERATOR Comment: NEGATIVE: SARS-CoV-2 (COVID-19) RNA not detected, presumed negative. Specimen Anatomical Location / Collection Method Collection Arnold e Received Time (Source) Laterality / Volume Swab NASOPHARYNGEAL Non-blood 10/26/2021 11:46 STRUCTURE / Unknown Collection / AM MILL ROLL OPERATOR 11:52 AM MILL ROLL OPERATOR Unknown Narrative LABORATORY - 10/26/2021 1:43 PM MILL ROLL OPERATOR Testing was performed using the george?? SARS-CoV-2 & Influenza A/B Assay on the george?? [place]?? System. ??This test shoul d be ordered for the detection of SARS-COV-2 in individuals who meet SARS-CoV-2 clini tray and/or epidemiological criteria. Test performance is unknown in asymptomatic p atients. ??This test is for in vitro diagnostic use under the FDA EUA for lab oratories certified under CLIA to perform moderate and/or high complexity testing. This test has not been FDA cleared or approved. ??A negative test does not rul e out the presence of PCR inhibitors in the specimen or target RNA in concentration below the limit of detection for the assay. The possibility of a false negative shou ld be considered if the patient's recent exposure or clinical presentation sugges ts COVID-19. ??[facility] are certified under the Clinical Laborat ory Improvement Amendments of 1988 (CLIA-88) as qualified to perform moderate and/or high complexity laboratory testing. Yunier Alvarez MD LAB - MICRO GENERAL ORDERABL ES Performing Organization Address City/State/ZIP Code [place] [address] Care Lab [address] Lab (1st floor, no room number) (ABNORMAL) Creatinine POCT (10/26/2021 11:15 AM MILL ROLL OPERATOR) Analysis Performed At Patho logist Time Signature Creatinine POCT 0.5 (L) 0.7 - 1.3 10/26/2021 [facility] mg/dL 11:17 AM MILL ROLL OPERATOR POC GFR, ESTIMATED >60 >60 10/26/2021 [facility] POCT mL/min/1.7 11:17 AM MILL ROLL OPERATOR POC 3m2 Specimen Anatomical Collection Method Collection Time Receive d Time (Source) Location / / Volume Laterality Blood, venous BLOOD SPECIMEN / 10/26/2021 11:15 2020 Unknown AM MILL ROLL OPERATOR 11:17 AM MILL ROLL OPERATOR Yunier Alvarez MD LAB - BEAKER POCT Performing Organization Address City/[facility]/ZIP Code Phon e Number [place] [phone] Care Lab [address] Lab (1st floor, no room number) Blood Culture Peripheral Blood (10/26/2021 11:10 AM MILL ROLL OPERATOR) P athologist Signature Culture No Growth 10/31/2021 [facility] IDD 2:03 PM MILL ROLL OPERATOR LABORATORY Specimen Anatomical Collection Method / Collection Time Recei delma Time (Source) Location / Volume Laterality Blood BLOOD SPECIMEN / Venipuncture / 10/26/2021 11:10 10/26 Unknown Unknown AM MILL ROLL OPERATOR 11:17 AM MILL ROLL OPERATOR Yunier Alvarez MD LAB - MICRO GENERAL ORDERABL ES Performing Organization Address City/State/ZIP Code Phon e Number [facility]ORATORY [facility] [place] [place] [phone] Diag. Lab [address] [facility], [address] [facility]ORAT[facility] Infectious [place], [place] [phone] Diseases Diagnostic [id number], [place] Lab (IDDL) [address] [facility], [address] Lactic acid whole blood (10/26/2021 11:10 AM MILL ROLL OPERATOR) athologist Signature Lactic Acid 1.7 0.7 - 2.0 10/26/2021 [facility] mmol/L 11:23 AM MILL ROLL OPERATOR Specimen Anatomical Collection Method / Collection Time Recei delma Time (Source) Location / Volume Laterality Blood STRUCTURE OF LEFT Venipuncture / 10/26/2021 11:10 12/0 06/2021 UPPER LIMB / Unknown AM MILL ROLL OPERATOR 11:17 AM MILL ROLL OPERATOR Unknown Yunier Alvarez MD LAB - BLOOD ORDERABLES Performing Organization Address City/State/[place] [address] Care Lab [address] Lab (1st floor, no room number) Magnesium (10/26/2021 10:43 AM MILL ROLL OPERATOR) athologist Signature Magnesium 1.9 1.6 - 2.3 10/26/2021 [facility] mg/dL 5:52 PM MILL ROLL OPERATOR Specimen Anatomical Collection Method / Collection Time Recei delma Time (Source) Location / Volume Laterality Blood STRUCTURE OF LEFT Venipuncture / 10/26/2021 10:43 12/0 06/2021 UPPER LIMB / Unknown AM MILL ROLL OPERATOR 10:57 AM MILL ROLL OPERATOR Unknown Zion Mijares MD LAB - BLOOD ORDERABLES Performing Organization Address City/State/[place] [address] Care Lab [address] Lab (1st floor, no room number) (ABNORMAL) Protein total (10/26/2021 10:43 AM MILL ROLL OPERATOR) athologist Signature Protein Total 6.5 (L) 6.8 - 8.8 10/26/2021 [facility] g/dL 2:53 PM MILL ROLL OPERATOR Specimen Anatomical Collection Method / Collection Time Recei delma Time (Source) Location / Volume Laterality Blood STRUCTURE OF LEFT Venipuncture / 10/26/2021 10:43 12/0 06/2021 UPPER LIMB / Unknown AM MILL ROLL OPERATOR 10:57 AM MILL ROLL OPERATOR Unknown Yunier Alvarez MD LAB - BLOOD ORDERABLES Performing Organization Address City/[facility]/[place] [phone] Care Lab [address] Lab (1st floor, no room number) INR (10/26/2021 10:43 AM MILL ROLL OPERATOR) athologist Signature INR 1.11 0.85 - 1.15 10/26/2021 [facility] 12:19 PM MILL ROLL OPERATOR Specimen Anatomical Collection Method / Collection Time Recei delma Time (Source) Location / Volume Laterality Blood STRUCTURE OF LEFT Venipuncture / 10/26/2021 10:43 12/0 06/2021 UPPER LIMB / Unknown AM MILL ROLL OPERATOR 10:57 AM MILL ROLL OPERATOR Unknown Yunier Alvarez MD LAB - BLOOD ORDERABLES Performing Organization Address City/[facility]/[place] [phone] Care Lab [address] Lab (1st floor, no room number) Alcohol level blood (10/26/2021 10:43 AM MILL ROLL OPERATOR) athologist Signature Alcohol ethyl <0.01 <=0.01 g/dL 10/26/2021 [facility] 12:00 PM MILL ROLL OPERATOR Specimen Anatomical Collection Method / Collection Time Recei delma Time (Source) Location / Volume Laterality Blood STRUCTURE OF LEFT Venipuncture / 10/26/2021 10:43 12/0 06/2021 UPPER LIMB / Unknown AM MILL ROLL OPERATOR 10:57 AM MILL ROLL OPERATOR Unknown Yunier Alvarez MD LAB - BLOOD ORDERABLES Performing Organization Address City/[facility]/[place] [phone] Care Lab [address] Lab (1st floor, no room number) Extra Green Top ([place] Heparin) Tube (10/26/2021 10:43 AM MILL ROLL OPERATOR) athologist Signature Hold Specimen JI 10/26/2021 [facility] 12:06 PM MILL ROLL OPERATOR Specimen Anatomical Collection Method / Collection Time Recei delma Time (Source) Location / Volume Laterality Blood STRUCTURE OF LEFT Venipuncture / 10/26/2021 10:43 12/0 06/2021 UPPER LIMB / Unknown AM MILL ROLL OPERATOR 10:57 AM MILL ROLL OPERATOR Unknown Yunier Alvarez MD LAB - BLOOD ORDERABLES Performing Organization Address City/State/[place] [address] Care Lab [address] Lab (1st floor, no room number) Extra Blue Top Tube (10/26/2021 10:43 AM MILL ROLL OPERATOR) athologist Signature Hold Specimen [facility] 10/26/2021 LABORATORY 12:06 PM MILL ROLL OPERATOR Specimen Anatomical Collection Method / Collection Time Recei delma Time (Source) Location / Volume Laterality Blood STRUCTURE OF LEFT Venipuncture / 10/26/2021 10:43 12/0 06/2021 UPPER LIMB / Unknown AM MILL ROLL OPERATOR 10:57 AM MILL ROLL OPERATOR Unknown Yunier Alvarez MD LAB - BLOOD ORDERABLES Performing Organization Address City/[facility]/[place] [address] Care Lab [address] Lab (1st floor, no room number) XR Chest Port 1 View (10/26/2021 10:32 AM MILL ROLL OPERATOR) Anatomical Region Laterality Modality Chest Digital Radiography Specimen (Source) Anatomical Location Collection Method / Collectio n Time Received Time / Laterality Volume Impressions 10/26/2021 11:18 AM MILL ROLL OPERATOR IMPRESSION: AP view chest was obtained. Cardiomediastinal silhouette is within normal limits. Small to modera te volume right pleural effusion and associated basilar atelecta sis/consolidation. No significant left pleural effusion. No si gnificant pneumothorax. High lung volumes, likely due to underlying C OPD changes. Multiple old rib fractures. CLAIR CUEVA MD Narrative 10/26/2021 11:18 AM MILL ROLL OPERATOR CHEST PORTABLE ONE VIEW ?? 10/26/2021 10:32 AM HISTORY: SOB, reported collapsed lung on outpatient CT last week. COMPARISON: Chest x-ray on 04/16/2020. Procedure Note Clair Cueva MD - 10/26/2021Forma tting of this note might be different from the original. CHEST PORTABLE ONE VIEW 10/26/2021 10:32 AM HISTORY: SOB, reported collapsed lung on outpatient CT last week. COMPARISON: Chest x-ray on 04/16/2020. IMPRESSION: AP view chest was obtained. Cardiomediastinal silhouette is within normal limits. Small to modera te volume right pleural effusion and associated basilar atelecta sis/consolidation. No significant left pleural effusion. No si gnificant pneumothorax. High lung volumes, likely due to underlying C OPD changes. Multiple old rib fractures. CLAIR CUEVA MD Yunier Alvarez MD IMG DIAGNOSTIC IMAGING ORDER SHA EKG 12-lead, tracing only (10/26/2021 10:08 AM MILL ROLL OPERATOR) Component Value Ref Range Test Analysis Performed Pathologis t Method Time At Signature Systolic Blood mmHg RADIOLOGY Pressure RESULTS Diastolic Blood mmHg RADIOLOGY Pressure RESULTS Ventricular Rate 97 BPM RADIOLOGY RESULTS Atrial Rate 97 BPM RADIOLOGY RESULTS NM Interval 164 ms RADIOLOGY RESULTS QRS Duration 62 ms RADIOLOGY RESULTS QT 334 ms RADIOLOGY RESULTS QTc 424 ms RADIOLOGY RESULTS P [place] 82 degrees RADIOLOGY RESULTS R AXIS 116 degrees RADIOLOGY RESULTS T [place] 88 degrees RADIOLOGY RESULTS Interpretation Sinus rhythm with Fusion complexes RADIOLOGY ECG Right axis deviation RESULTS Low voltage QRS Abnormal ECG When compared with ECG of 16-APR-2020 14:07, Fusion complexes are now Present QRS axis Shifted right Nonspecific T wave abnormality no longer evident in Inferior leads Nonspecific T wave abnormality, improved in Anterolateral le ads Confirmed by - EMERGENCY JYOTI M, PHYSICIAN ([id number]), editor producer HECTOR PATTERSON ([id number]) on 10/26/2021 3:19:02 PM Specimen Anatomical Collection Method Collection Time Receive d Time (Source) Location / / Volume Laterality 10/26/2021 10:08 10/26/2021 3:19 AM MILL ROLL OPERATOR PM MILL ROLL OPERATOR Yunier Alvarez MD ECG ORDERABLES Performing Organization Address City/State/ZIP Code Phon e Number RADIOLOGY RESULTS (ABNORMAL) Lactate Dehydrogenase (10/26/2021 10:05 AM MILL ROLL OPERATOR) [facility] Method Time Signature Lactate 273 (H) 85 - 227 10/26/2021 [facility]AT[facility] Dehydrogenase U/L 3:30 PM MILL ROLL OPERATOR Specimen Anatomical Collection Method / Collection Time Recei delma Time (Source) Location / Volume Laterality Blood STRUCTURE OF RIGHT Venipuncture / 10/26/2021 10:05 06/2021 UPPER LIMB / Unknown AM MILL ROLL OPERATOR 10:57 AM MILL ROLL OPERATOR Unknown Yunier Alvarez MD LAB - BLOOD ORDERABLES Performing Organization Address City/State/ZIP Code [place] [address] Care Lab [address] Lab (1st floor, no room number) (ABNORMAL) CBC with platelets and differential (10/26/2021 10:05 AM MILL ROLL OPERATOR) [facility] Method Time Signature WBC Count 8.0 4.0 - 10/26/2021 [facility] 11.0 11:05 AM MILL ROLL OPERATOR 10e3/uL RBC Count 3.46 (L) 4.40 - 10/26/2021 [facility] 5.90 11:05 AM MILL ROLL OPERATOR 10e6/uL Hemoglobin 11.5 (L) 13.3 - 10/26/2021 [facility] 17.7 g/dL 11:05 AM MILL ROLL OPERATOR Hematocrit 34.7 (L) 40.0 - 10/26/2021 [facility] 53.0 % 11:05 AM MILL ROLL OPERATOR MCV 100 78 - 100 10/26/2021 [facility] fL 11:05 AM MILL ROLL OPERATOR MCH 33.2 (H) 26.5 - 10/26/2021 [facility] 33.0 pg 11:05 AM MILL ROLL OPERATOR MCHC 33.1 31.5 - 10/26/2021 [facility] 36.5 g/dL 11:05 AM MILL ROLL OPERATOR RDW 15.6 (H) 10.0 - 10/26/2021 [facility] 15.0 % 11:05 AM MILL ROLL OPERATOR Platelet Count 298 150 - 450 10/26/2021 [facility] 10e3/uL 11:05 AM MILL ROLL OPERATOR % Neutrophils 75 % 10/26/2021 [facility] 11:05 AM MILL ROLL OPERATOR % Lymphocytes 13 % 10/26/2021 [facility] 11:05 AM MILL ROLL OPERATOR % Monocytes 9 % 10/26/2021 [facility] 11:05 AM MILL ROLL OPERATOR % Eosinophils 2 % 10/26/2021 [facility] 11:05 AM MILL ROLL OPERATOR % Basophils 1 % 10/26/2021 [facility] 11:05 AM MILL ROLL OPERATOR % Immature 0 % 10/26/2021 [facility] Granulocytes 11:05 AM MILL ROLL OPERATOR NRBCs per 100 0 <1 /100 10/26/2021 [facility] WBC 11:05 AM MILL ROLL OPERATOR Absolute 6.1 1.6 - 8.3 10/26/2021 [facility] Neutrophils 10e3/uL 11:05 AM MILL ROLL OPERATOR Absolute 1.0 0.8 - 5.3 10/26/2021 [facility] Lymphocytes 10e3/uL 11:05 AM MILL ROLL OPERATOR Absolute 0.7 0.0 - 1.3 10/26/2021 [facility] Monocytes 10e3/uL 11:05 AM MILL ROLL OPERATOR Absolute 0.2 0.0 - 0.7 10/26/2021 [facility] Eosinophils 10e3/uL 11:05 AM MILL ROLL OPERATOR Absolute 0.1 0.0 - 0.2 10/26/2021 [facility] Basophils 10e3/uL 11:05 AM MILL ROLL OPERATOR Absolute 0.0 <=0.4 10/26/2021 [facility] Immature 10e3/uL 11:05 AM MILL ROLL OPERATOR Granulocytes Absolute NRBCs 0.0 10e3/uL 10/26/2021 [facility] 11:05 AM MILL ROLL OPERATOR Specimen Anatomical Collection Method / Collection Time Recei delma Time (Source) Location / Volume Laterality Blood STRUCTURE OF RIGHT Venipuncture / 10/26/2021 10:05 06/2021 UPPER LIMB / Unknown AM MILL ROLL OPERATOR 10:57 AM MILL ROLL OPERATOR Unknown Yunier Alvarez MD LAB - BLOOD ORDERABLES Performing Organization Address City/State/ZIP Code [place] [address] Care Lab [address] Lab (1st floor, no room number) Nt probnp inpatient (BNP) (10/26/2021 10:05 AM MILL ROLL OPERATOR) P athologist Signature N terminal Pro 362 0 - 900 10/26/2021 [facility] BNP Inpatient pg/mL 11:49 AM MILL ROLL OPERATOR Comment: Reference range shown and results flagge d as abnormal are suggested inpatient cut points for confirming diagnosis if CHF in an acute setting. Establishing a baseline value for each individual patient is useful for follow-up. An inpatient or e mergency department NT-proPBNP <300 pg/mL effectively rules out acute CHF, with 99% negative predictive value. The outpatient non-acute reference range for ruling out CHF is: 0-125 pg/mL (age 18 to less than 75) 0-450 pg/mL (age 75 yrs and older) Specimen Anatomical Collection Method / Collection Time Recei delma Time (Source) Location / Volume Laterality Blood STRUCTURE OF RIGHT Venipuncture / 10/26/2021 10:05 06/2021 UPPER LIMB / Unknown AM MILL ROLL OPERATOR 10:57 AM MILL ROLL OPERATOR Unknown Yunier Alvarez MD LAB - BLOOD ORDERABLES Performing Organization Address City/[facility] Code [place] [address] Care Lab [address] Lab (1st floor, no room number) Troponin I (10/26/2021 10:05 AM MILL ROLL OPERATOR) P athologist Signature Troponin I High 8 <79 ng/L 10/26/2021 LABORATORY Sensitivity 11:49 AM MILL ROLL OPERATOR Comment: This Troponin-I result was obta ined using a Siemens Dimension [place] High Sensitivity Troponin-I assay (TNIH). Eff ective 10/11/21, nine labs/sites in the [facility] switched from a Siemens [place] Contemporary Troponin I assay (CTNI) to a Siemens [place] High-Sensitivity Troponi n I assay (TNIH). Specimen Anatomical Collection Method / Collection Time Recei delma Time (Source) Location / Volume Laterality Blood STRUCTURE OF RIGHT Venipuncture / 10/26/2021 10:05 06/2021 UPPER LIMB / Unknown AM MILL ROLL OPERATOR 10:57 AM MILL ROLL OPERATOR Unknown Yunier Alvarez MD LAB - BLOOD ORDERABLES Performing Organization Address City/[facility]/ZIP Code [place] [address] Care Lab [address] Lab (1st floor, no room number) (ABNORMAL) Lipase (10/26/2021 10:05 AM MILL ROLL OPERATOR) P athologist Signature Lipase 779 (H) 73 - 393 10/26/2021 [facility] LABORATORY U/L 11:47 AM MILL ROLL OPERATOR Specimen Anatomical Collection Method / Collection Time Recei delma Time (Source) Location / Volume Laterality Blood STRUCTURE OF RIGHT Venipuncture / 10/26/2021 10:05 06/2021 UPPER LIMB / Unknown AM MILL ROLL OPERATOR 10:57 AM MILL ROLL OPERATOR Unknown Yunier Alvarez MD LAB - BLOOD ORDERABLES Performing Organization Address City/State/ZIP Code Phon [place] [address] Care Lab [address] Lab (1st floor, no room number) (ABNORMAL) Comprehensive metabolic panel (10/26/2021 10:05 AM MILL ROLL OPERATOR) Patholo gist Method Time Signature Sodium 141 133 - 144 10/26/2021 [facility] LABORATORY mmol/L 11:47 AM MILL ROLL OPERATOR Potassium 3.4 3.4 - 5.3 10/26/2021 LABORATORY mmol/L 11:47 AM MILL ROLL OPERATOR Chloride 110 (H) 94 - 109 10/26/2021 LABORATORY mmol/L 11:47 AM MILL ROLL OPERATOR Carbon Dioxide 25 20 - 32 10/26/2021 LABORATORY (CO2) mmol/L 11:47 AM MILL ROLL OPERATOR Anion Gap 6 3 - 14 10/26/2021 LABORATORY mmol/L 11:47 AM MILL ROLL OPERATOR Urea Nitrogen 9 7 - 30 10/26/2021 LABORATORY mg/dL 11:47 AM MILL ROLL OPERATOR Creatinine 0.56 (L) 0.66 - 10/26/2021 LABORATORY 1.25 11:47 AM MILL ROLL OPERATOR mg/dL Calcium 8.2 (L) 8.5 - 10/26/2021 [facility] LABORATORY 10.1 11:47 AM MILL ROLL OPERATOR mg/dL Glucose 208 (H) 70 - 99 10/26/2021 LABORATORY mg/dL 11:47 AM MILL ROLL OPERATOR Alkaline 78 40 - 150 10/26/2021 LABORATORY Phosphatase U/L 11:47 AM MILL ROLL OPERATOR AST 15 0 - 45 10/26/2021 LABORATORY U/L 11:47 AM MILL ROLL OPERATOR ALT 9 0 - 70 10/26/2021 LABORATORY U/L 11:47 AM MILL ROLL OPERATOR Protein Total 7.1 6.8 - 8.8 10/26/2021 [facility] LABORATORY g/dL 11:47 AM MILL ROLL OPERATOR Albumin 2.4 (L) 3.4 - 5.0 10/26/2021 [facility] LABORATORY g/dL 11:47 AM MILL ROLL OPERATOR Bilirubin Total 0.4 0.2 - 1.3 10/26/2021 LABORATORY mg/dL 11:47 AM MILL ROLL OPERATOR GFR Estimate >90 >60 10/26/2021 LABORATORY mL/min/1. 11:47 AM MILL ROLL OPERATOR 73m2 Comment: As of May 29, 2021, eGFR is ca lculated by the CKD-EPI creatinine equation, without race adjustment. eGFR can be inf luenced by muscle mass, exercise, and diet. The reported eGFR is an estimation only and is only applicable if the renal function is stable. Specimen Anatomical Collection Method / Collection Time Recei delma Time (Source) Location / Volume Laterality Blood STRUCTURE OF RIGHT Venipuncture / 10/26/2021 10:05 06/2021 UPPER LIMB / Unknown AM MILL ROLL OPERATOR 10:57 AM MILL ROLL OPERATOR Unknown Yunier Alvarez MD LAB - BLOOD ORDERABLES Performing Organization Address City/State/[place] [address] Care Lab [address] Lab (1st floor, no room number) Extra Purple Top Tube (10/26/2021 10:05 AM MILL ROLL OPERATOR) athologist Signature Hold Specimen [facility] 10/26/2021 LABORATORY 12:06 PM MILL ROLL OPERATOR Specimen Anatomical Collection Method / Collection Time Recei delma Time (Source) Location / Volume Laterality Blood STRUCTURE OF RIGHT Venipuncture / 10/26/2021 10:05 06/2021 UPPER LIMB / Unknown AM MILL ROLL OPERATOR 10:57 AM MILL ROLL OPERATOR Unknown Yunier Alvarez MD LAB - BLOOD ORDERABLES Performing Organization Address City/State/[place] [address] Care Lab [address] Lab (1st floor, no room number) Extra Green Top ([place] Heparin) Tube (10/26/2021 10:05 AM MILL ROLL OPERATOR) athologist Signature Hold Specimen JI 10/26/2021 LABORATORY 12:06 PM MILL ROLL OPERATOR Specimen Anatomical Collection Method / Collection Time Recei delma Time (Source) Location / Volume Laterality Blood STRUCTURE OF RIGHT Venipuncture / 10/26/2021 10:05 06/2021 UPPER LIMB / Unknown AM MILL ROLL OPERATOR 10:57 AM MILL ROLL OPERATOR Unknown Yunier Alvarez MD LAB - BLOOD ORDERABLES Performing Organization Address City/State/ZIP Code [place] [phone] Care Lab [address] Lab (1st floor, no room number) documented in this encounter Visit Diagnoses Diagnosis Aspiration pneumonia of right lung, unsp ecified aspiration pneumonia type, unspecified part of lung (H) Hydropneumothorax Other specified forms of effusion, excep t tuberculous Pneumonia Pneumonia, organism unspecified documented in this encounter Admitting Diagnoses Diagnosis Hydropneumothorax Other specified forms of effusion, excep t tuberculous documented in this encounter Administered Medications Inactive Administered Medications - up to 3 most recent administrations Medication Order MAR Action Action Date Dose Rate Site 0.9% sodium chloride BOLUS New Bag 10/26/2021 1:12 PM MILL ROLL OPERATOR 1,000 mLs 1000 mL/hr Intravenous, 1,000 mL, ONCE, at 1,000 mL/hr, Administer over 1 Hours, On Sun10/26/21 at 1310, For 1 dose acetaminophen (TYLENOL) tablet 650 mg Given 10/28/2021 2:07 AM MILL ROLL OPERATOR 650 mg 650 mg (15.3 mg/kg), Oral, EVERY 6 HOURS PRN, mild pain, Starting on Sun10/26/21 at 1942, Maximum acetaminophen dose from all sources = 75 mg/kg/day not to exceed 4 grams/day. Given 10/27/2021 9:23 AM MILL ROLL OPERATOR 650 mg Given 10/27/2021 2:23 AM MILL ROLL OPERATOR 650 mg ampicillin-sulbactam (UNASYN) 3 g vial to New Bag 10/26/2021 2:11 PM MILL ROLL OPERATOR 3 g attach to NS 100 mL bag STAT, 3 g, Intravenous, ONCE, On Sun10/26/21 at 1400, For 1 dose, Indications: Aspiration Pneumonia ampicillin-sulbactam (UNASYN) 3 g vial to New Bag 10/28/2021 2:07 AM MILL ROLL OPERATOR 3 g attach to NS 100 mL bag STAT, 3 g, Intravenous, EVERY 6 HOURS, First dose on Sun10/26/21 at 2000, For 7 doses, First dose STAT and to be started in the unit ordered (ED) PRIOR to transfer or admission., Indications: Aspiration Pneumonia New Bag 10/27/2021 8:32 PM MILL ROLL OPERATOR 3 g New Bag 10/27/2021 1:31 PM MILL ROLL OPERATOR 3 g aspirin (ASA) EC tablet 325 mg Given 10/27/2021 8:33 PM MILL ROLL OPERATOR 325 mg 325 mg, Oral, DAILY, First dose on Sun10/26/21 at 2200, DO NOT CRUSH. Given 10/26/2021 9:27 PM MILL ROLL OPERATOR 325 mg atenolol (TENORMIN) tablet 25 mg Given 10/27/2021 5:14 PM MILL ROLL OPERATOR 25 mg 25 mg, Oral, DAILY WITH SUPPER, First dose on Sun10/26/21 at 1730 Given 10/26/2021 6:16 PM MILL ROLL OPERATOR [address] Scan Flush Given 10/26/2021 12:19 PM MILL ROLL OPERATOR 60 mLs Intravenous, 100 mL, ONCE, On Sun10/26/21 at 1220, For 1 dose, This entry is for use by Radiology to intermittently used as a flush in patients receiving a CT scan. CT Scan Flush Given 10/26/2021 1:40 PM MILL ROLL OPERATOR 56 mLs Intravenous, 100 mL, ONCE, On Sun10/26/21 at 1340, For 1 dose, This entry is for use by Radiology to intermittently used as a flush in patients receiving a CT scan. fluticasone-vilanterol (BREO ELLIPTA) 100-25 Given 08/2021 8:51 AM MILL ROLL OPERATOR 1 puff MCG/INH inhaler 1 puff 1 puff, Inhalation, DAILY, First dose on Sun10/26/21 at 1730, Trelegy is NF, sub is breo ellipta and Incruse ellipta *Do not use more frequently than once daily.* Rinse mouth after use. Check the dose counter on the inhaler to ensure there are doses remaining before administering. Given 10/27/2021 7:49 AM MILL ROLL OPERATOR 1 puff Given 10/26/2021 6:17 PM MILL ROLL OPERATOR 1 puff guaiFENesin (ROBITUSSIN) 20 mg/mL solution 10 Given 6:16 PM MILL ROLL OPERATOR 10 mLs mL 10 mL, Oral, EVERY 4 HOURS PRN, other, secretion expectorant, Starting on Sun10/26/21 at 1712 HYDROmorphone (DILAUDID) injection 0.2 m g 0.2 mg (0.36181 mg/kg), Intravenous, CATHRYN RY 3 HOURS PRN, moderate to severe pain, Starting on Sun10/26/21 at 1943 HYDROmorphone (PF) (DILAUDID) injection 0.5 Given 10/26/2021 2:30 PM MILL ROLL OPERATOR 0.5 mg mg 0.5 mg, Intravenous, ONCE, On Sun10/26/21 at 1420, For 1 dose iopamidol (ISOVUE-370) solution 500 mL Given 10/26/2021 12:19 PM MILL ROLL OPERATOR 50 mLs 500 mL, Intravenous, ONCE, On Sun10/26/21 at 1220, For 1 dose iopamidol (ISOVUE-370) solution 500 mL Given 10/26/2021 1:40 PM MILL ROLL OPERATOR 50 mLs 500 mL, Intravenous, ONCE, On Sun10/26/21 at 1340, For 1 dose lidocaine 1 % 10 mL Given by Other 10/26/2021 4:17 PM MILL ROLL OPERATOR 10 mLs 10 mL, Subcutaneous, ONCE, On Sun10/26/21 at 1610, For 1 dose lisinopril (ZESTRIL) tablet 20 mg Given 10/27/2021 5:15 PM MILL ROLL OPERATOR 20 mg 20 mg, Oral, DAILY WITH SUPPER, First dose on Sun10/26/21 at 1730 Given 10/26/2021 6:16 PM MILL ROLL OPERATOR 20 mg melatonin tablet 1 mg Given 10/27/2021 8:33 PM MILL ROLL OPERATOR 1 mg 1 mg, Oral, AT BEDTIME PRN, sleep, Starting on Sun10/26/21 at 1708, Do not give unless at least 6 hours of uninterrupted sleep is expected. multivitamin w/minerals (THERA-VIT-M) Given 10/28/2021 8:[address] 1 tablet tablet 1 tablet 1 tablet, Oral, DAILY, First dose on Sun10/26/21 at 1730 Given 10/27/2021 7:41 AM MILL ROLL OPERATOR 1 tablet Given 10/26/2021 6:16 PM MILL ROLL OPERATOR 1 tablet naloxone (NARCAN) injection 0.2 mg 0.2 mg (0.17856 mg/kg), Intravenous, ACTHRYN RY 2 MIN PRN, opioid reversal, Starting on Sun10/26/21 at 1944, Administer intravenous route when available and notify provider when administered. For unintend ed sedation or respiratory depression if all of the below criteria are met: ~ respiratory rate LESS than or EQUAL to 8. ~SaO2 less than 92% and or/end-tidal CO2 is greater th an 50. ~ the patient is receiving an opioid, has unintended sedations assessed as RASS (-3), and is currently not on mechanical ventilation. RASS scale moderate (-3) is movement or eye opening to voice but no eye contact. Patient Monitoring Once the patient has demonstrated a response to the naloxone, continue to m onitor respiratory rate, depth, oxygen saturation and end-tidal CO2 (if availab le) every 15 minutes x 2, then every 30 minutes x 2, then every 1 hour x 1 after each naloxone dose. Consider transfer to ICU if patient respiratory parameters have not improved after 4 naloxone doses. naloxone (NARCAN) injection 0.2 mg 0.2 mg (0.47616 mg/kg), Intramuscular, E VERY 2 MIN PRN, opioid reversal, Starting on Sun10/26/21 at 1944, Administer intramuscular if an intravenous route is not available and notify provider when administered. For u nintended sedation or respiratory depression if all of the below criteria ar e met: ~ respiratory rate LESS than or EQUAL to 8. ~SaO2 less than 92% and or/end-tidal CO2 is greater than 50. ~ the patient is receiving an opioid , has unintended sedations assessed as RASS (-3), and is currently not on mechanical ventilation. RASS scale moderate (-3) is movement or eye opening to voice but no eye contact. Patient Monitoring Once the patient has demonstrated a response to the naloxone, c ontinue to monitor respiratory rate, depth, oxygen saturati on and end-tidal CO2 (if available) every 15 minutes x 2, then every 30 minutes x 2, then every 1 hour x 1 after each naloxone dose. Consider transfer to ICU if patient respiratory parameters have not improved after 4 naloxone doses. naloxone (NARCAN) injection 0.4 mg 0.4 mg (0.62661 mg/kg), Intravenous, CATHRYN RY 2 MIN PRN, opioid reversal, Starting on Sun10/26/21 at 1944, Administer intravenous route when available and notify provider when administered. For unintend ed sedation or respiratory depression if all of the below criteria are met: ~ res piratory rate LESS than or EQUAL to 8. ~ SaO2 less than 92% and or/end-tidal CO2 is greater laury n 50. ~ the patient is receiving an opioid, has unintended sedation assessed as RASS (-4) or (-5) and patient is currently not on mechanical ventilation. RA SS scale (-4) is deep sedation with no response to voice but movement or eye opening to physical stimulation. RASS scale (-5) is unarousa ble. Patient Monitoring Once the patient has demonstrated a response to the nalox one, continue to monitor respiratory rate, depth, oxygen saturation and end-tidal CO2 (if availab le) every 15 minutes x 2, then every 30 minutes x 2, then every 1 hour x 1 after each naloxone dose. Consider transfer to ICU if patient respiratory parameters have not improved after 4 naloxone doses. naloxone (NARCAN) injection 0.4 mg 0.4 mg (0.11739 mg/kg), Intramuscular, E VERY 2 MIN PRN, opioid reversal, Starting on Sun10/26/21 at 1944, Administer intramuscular if an intravenous route is not available and notify provider when administered. For u nintended sedation or respiratory depression if all of the below criteria ar e met: ~ respiratory rate LESS than or EQUAL to 8. ~ SaO2 less laury n 92% and or/end-tidal CO2 is greater than 50. ~ the patient is receiving an opioid , has unintended sedation assessed as RASS (-4) or (-5) and patient is currently not on mechanica l ventilation. RASS scale (-4) is deep sedation with no response to voice but mo vement or eye opening to physical stimulation. RASS scale (-5) is unarousable. Patient Monitoring Once the patient has demonstrated a response to the naloxone, c ontinue to monitor respiratory rate, depth, oxygen saturati on and end-tidal CO2 (if available) every 15 minutes x 2, then every 30 minutes x 2, then every 1 hour x 1 after each naloxone dose. Consider transfer to ICU if patient respiratory parameters have not improved after 4 naloxone doses. nicotine (NICODERM CQ) Patch/Med Applied 10/28/2021 8:30 AM 1 patch Right Shoulder 14 MG/24HR 24 hr patch MILL ROLL OPERATOR 1 patch 1 patch, Transdermal, DAILY, Administer over 24 Hours, First dose on Sun10/26/21 at 1830, Reminder: Remove previous patch before applying new patch. Patch/Med Applied 10/27/2021 7:40 AM MILL ROLL OPERATOR 1 patch Left Arm Patch/Med Applied 10/26/2021 6:29 PM MILL ROLL OPERATOR 1 patch Right Arm nicotine Patch in Place First dose on Sun10/26/21 at 1830, Chart every shift, confirming that patch is still in place on patient (no barcode scan needed). Se e patch order for dose information. ondansetron (ZOFRAN) injection 4 mg 4 mg, Intravenous, EVERY 6 HOURS PRN, nausea, vomiting , Administer over 2-5 Minutes, Starting on Sun10/26/21 at 1708 , Give IF patient unable to tolerate oral medication. This is Step 1 of nausea and vomiting tracey gement. If nausea not resolved in 15 minutes, go to Step 2 prochlorperazine (COMPAZINE). Irritant. ondansetron (ZOFRAN-ODT) ODT tab 4 mg 4 mg, Oral, EVERY 6 HOURS PRN, nausea, v omiting, Starting on Sun10/26/21 at 1708, This is Step 1 of nausea and vomiting management. If n ausea not resolved in 15 minutes, go to Step 2 prochlorperazine ( COMPAZINE). With dry hands, peel back foil backing and gently remove tablet. Do not push oral disintegrating tablet through foil backing. Administer immediately on tongue and ora l disintegrating tablet dissolves in seconds, then swallow with saliva. Liquid not required. oxyCODONE (ROXICODONE) tablet 5 mg Given 10/27/2021 10:17 AM MILL ROLL OPERATOR 5 mg 5 mg (0.118 mg/kg), Oral, EVERY 4 HOURS PRN, moderate to severe pain, Starting on Sun10/26/21 at 1943 Given 10/27/2021 5:54 AM MILL ROLL OPERATOR 5 mg Given 10/27/2021 12:05 AM MILL ROLL OPERATOR 5 mg oxyCODONE (ROXICODONE) tablet 5 mg Given 10/28/2021 8:50 AM MILL ROLL OPERATOR 5 mg 5 mg (0.113 mg/kg), Oral, EVERY 3 HOURS PRN, moderate to severe pain, Starting on Maida 10/27/21 at 1200 Given 10/28/2021 5:24 AM MILL ROLL OPERATOR 5 mg Given 10/28/2021 12:46 AM MILL ROLL OPERATOR 5 mg potassium chloride (KLOR-CON) Packet 20 mEq Given 10/27/2021 9:23 AM MILL ROLL OPERATOR 20 mEq 20 mEq (0.471 mEq/kg), Oral or Feeding Tube, ONCE, On Maida 10/27/21 at 0800, For 1 dose, Potassium level 3.1-3.4 Ordered from the Potassium replacement order set. Dissolve packet contents in 4-8 ounces of cold water or juice., Potassium Replacement: Potassium level 3.1-3.4, Recheck: Potassium level 4 hours after last PO dose prochlorperazine (COMPAZINE) injection 1 0 mg 10 mg, Intravenous, EVERY 6 HOURS PRN, nausea, vomitin g, Administer over 1-2 Minutes, Starting on 10/26/21 at 1708 , Give IF patient unable to tolerate oral medication. This is Step 2 of nausea and vomiting management. Give if nausea not resolved 15 minutes after giving ondanse esequiel (ZOFRAN). If nausea not resolved in 15-30 minutes, Notify provider. prochlorperazine (COMPAZINE) suppository 25 mg 25 mg, Rectal, EVERY 12 HOURS PRN, nausea, vomiting, S tarting on Sun10/26/21 at 1708, This is Step 2 of nausea and vomit ing management. Give if nausea not resolved 15 minutes after giving ondansetron (ZOFRAN). If nause a not resolved in 15-30 minutes, Notify provider. prochlorperazine (COMPAZINE) tablet 10 m g 10 mg, Oral, EVERY 6 HOURS PRN, vomiting , Starting on Sun10/26/21 at 1708, This is Step 2 of nausea and vomiting management . Give if nausea not resolved 15 minutes after giving ondansetron (ZOFRAN). If na usea not resolved in 15-30 minutes, Notify provider. sodium chloride (PF) 0.9% PF flush 3 mL Given 10/27/2021 7:48 AM MILL ROLL OPERATOR 3 mLs 3 mL, Intracatheter, EVERY 8 HOURS, First dose on 10/26/21 at 1730, to lock peripheral IV dormant line Given 10/27/2021 12:05 AM MILL ROLL OPERATOR 3 mLs Given 10/26/2021 6:16 PM MILL ROLL OPERATOR 3 mLs umeclidinium (INCRUSE ELLIPTA) 62.5 MCG/INH Given 10/28/2021 8:51 AM MILL ROLL OPERATOR 1 puff inhaler 1 puff 1 puff, Inhalation, DAILY, First dose on Sun10/26/21 at 1730, Trelegy is NF, sub is breo ellipta and Incruse ellipta Check the dose counter on the inhaler to ensure there are doses remaining before administering. Given 10/27/2021 7:49 AM MILL ROLL OPERATOR 1 puff Given 10/26/2021 6:28 PM MILL ROLL OPERATOR 1 puff documented in this encounter Active and Recently Administered Medications Times are shown in MILL ROLL OPERATOR. Scheduled Medication Order 10/26/2021 10/27/2021 10/28/2021 0.9% sodium chloride BOLUS (COMPLETED) 1312 (New Bag - Provider: Padma Gamboa RN)1412 (Stopped - Provider: Padma Gamboa RN) Intravenous, 1,000 mL, ONCE, at 1,000 mL /hr, Administer over 1 Hours, On Sun10/26/21 at 1310, For 1 dose ampicillin-sulbactam (UNASYN) 3 g vial to attach to NS 100 mL bag (COMPLETED) 1411 (New Bag - Provider: Padma Gamboa RN)1430 (Stopped - Provider: Padma Gamboa RN) STAT, 3 g, Intravenous, ONCE, On 07/09 at 1400, For 1 dose, Indications: Aspiration Pneumonia ampicillin-sulbactam (UNASYN) 3 g vial to attach to NS 100 mL bag 1956 (New Bag - Provider: Caridad Casiano RN) 022 (New Bag - Provider: Amy huerta RN)0740 (New Bag - Provider: Jillian Atkins, RICHY)1331 (New Bag - Provider: Jillian Atkins, RICHY)203 (New Bag - Provider: Priscilla Watts RN) 0207 (New Bag - Provider: Amy Alejandro, RICHY)0853 (Not Given - Provider: Rea Ch RN - Reason: No IV Access - Comment: discharging) STAT, 3 g, Intravenous, EVERY 6 HOURS, F irst dose on Sun10/26/21 at 2000, For 7 doses, First dose STAT and to be started in the unit ordered (ED) PRIOR to transfer or admission., Indications: Aspiration Pneumonia aspirin (ASA) EC tablet 325 mg 2126 (Given - Provider: José Miguel Casiano RN) 2032 (Given - Provider: Priscilla Watts, RN)2200 (Canceled Entry - Provider: Priscilla Watts RN) 325 mg, Oral, DAILY, First dose on Sun10/26/21 at 2200, DO NOT C GARCIA. atenolol (TENORMIN) tablet 25 mg 1815 (Given - Provider: Kelly Casiano RN) 1714 (Given - Provider: Priscilla Watts RN) 25 mg, Oral, DAILY WITH SUPPER, First dose on Sun10/26/[address] Scan Flush (COMPLETED) 1219 (Given - Provider: Jazmin rios) Intravenous, 100 mL, ONCE, On Sun 1 at 1220, For 1 dose, This entry is for use by Radiology to intermittently used as a flush in patients receiving a CT scan. CT Scan Flush (COMPLETED) 1340 (Given - Provider: Jazmin rios) Intravenous, 100 mL, ONCE, On Sun 1 at 1340, For 1 dose, This entry is for use by Radiology to intermittently used as a flush in patients receiving a CT scan. fluticasone-vilanterol (BREO ELLIPTA) 100-25 MCG/INH i nhaler 1 puff 181 (Given - Provider: Caridad Casiano RN) 0749 (Given - Provider: Jillian whitman RN) 0851 (Given - Provider: Rea Ch RN) 1 puff, Inhalation, DAILY, First dose on Sun10/26/21 at 1730, Trelegy is NF, sub is breo ellipta and Incruse ellipta *Do not use more frequently than once daily.* Rinse mouth after use. Check the dose c ounter on the inhaler to ensure there are doses remain ing before administering. HYDROmorphone (PF) (DILAUDID) injection 0.5 mg (COMPLE NORM) 1430 (Given - Provider: Padma Gamboa RN) 0.5 mg, Intravenous, ONCE, On Sun10/26/21 at 1420, For 1 dose iopamidol (ISOVUE-370) solution 500 mL (COMPLETED) 121 9 (Given - Provider: Jazmin Castillo) 500 mL, Intravenous, ONCE, On Sun10/26/21 at 1220, For 1 dose iopamidol (ISOVUE-370) solution 500 mL (COMPLETED) 134 0 (Given - Provider: Jazmin Castillo) 500 mL, Intravenous, ONCE, On Sun10/26/21 at 1340, For 1 dose lidocaine 1 % 10 mL (COMPLETED) 1617 (Given by Other - Provider: Monica Gallego RN - Comment: Dr Mistry) 10 mL, Subcutaneous, ONCE, On Sun10/26/21 at 1610, For 1 dose lisinopril (ZESTRIL) tablet 20 mg 1816 (Given - Provider: Mai Casiano RN) 1715 (Given - Provider: Priscilla Watts RN) 20 mg, Oral, DAILY WITH SUPPER, First dose on Sun10/26/21 at 173 0 multivitamin w/minerals (THERA-VIT-M) tablet 1 tablet 1816 (Given - Provider: Caridad Casiano RN) 0741 (Given - Provider: Jillian Atkins RN) 083 0 (Given - Provider: Rea Ch RN) 1 tablet, Oral, DAILY, First dose on Sun10/26/21 at 1730 nicotine (NICODERM CQ) 14 MG/24HR 24 hr patch 1 patch 1829 (Patch/Med Applied - Provider: Caridad Casiano RN) 0740 (Patch/Med Applied - Provider: Juanpablo Atkins RN) 0830 (Patch/Med Applied - Provider: Karolina Ch RN)0845 (Patch/Med Removed - Provider: Rea Ch RN)1121 (Due: Patch/Med Removed - Provider: Orders Generic Provider - Comment: Time automatically adjusted from order being discontinued) 1 patch, Transdermal, DAILY, Administer over 24 Hours, First dose on Sun10/26/21 at 1830, Reminder: Remove previous patch before applying new patch. nicotine Patch in Place 1830 (Patch in Place - Provider: Kelly Casiano RN) 0225 (Patch in Place - Provider: Amy Alejandro RN)1148 (Patch in Place - Provider: Jillian Atkins RN)1741 (Patch in Place - Provider: Priscilla Watts, RICHY) 0158 (Patch in Place - Provider: Amy Alejandro RN)1030 (Canceled Entry - Provider: Orders Generic Provider - Comment: Automatically canceled at discontinue of medication order) First dose on Sun10/26/21 at 1830, Chart every shift, confirming that patch is still in place on patient (no barcode scan needed). See patch order for dose information. potassium chloride (KLOR-CON) Packet 20 mEq (COMPLETED) 922 (Given - Provider: Jillian Atkins RN) 20 mEq (0.471 mEq/kg), Oral or Feeding T ube, ONCE, On Maida 10/27/21 at 0800, For 1 dose, Potassium level 3.1-3.4 Ordered from the Potassium replacement order set. Dissolve packet contents in 4-8 ounces of cold water or juice., Potassium Replace ment: Potassium level 3.1-3.4, Recheck: Potassium level 4 hours after last PO dose sodium chloride (PF) 0.9% PF flush 3 mL 1816 (Given - Provider: Caridad Casiano RN) 0005 (Given - Provider: Amy Alejandro RN)0225 (Not Given - Provider: Amy Alejandro RN - Reason: IV Infusing)0748 (Given - Provider: Jillian Atkins RN)0930 (Canceled Entry - Provider: Jillian Atkins RN) 0108 (Not Given - Provider: Amy cavanaugh RN - Reason: IV Infusing)0853 (Not Given - Provider: Rea Ch RN - Reason: No IV Access) 3 mL, Intracatheter, EVERY 8 HOURS, Firs t dose on Sun10/26/21 at 1730, to lock peripheral IV dormant line 1715 (Not Given - Provider: Priscilla Watts RN - Reason: IV Infusing) umeclidinium (INCRUSE ELLIPTA) 62.5 MCG/INH inhaler 1 puff 1828 (Given - Provider: Caridad Casiano RN) 0749 (Given - Provider: Jillian whitman RN) 0851 (Given - Provider: Rea Ch RN) 1 puff, Inhalation, DAILY, First dose on Sun10/26/21 at 1730, Trelegy is NF, sub is breo ellipta and Incruse ellipta Check the dose counter on the inhaler to ensure there are doses remaining before administering. PRN Medication Order 10/26/2021 10/27/2021 10/28/2021 acetaminophen (TYLENOL) tablet 650 mg 1956 (Given - Pr ovider: Caridad Casiano RN) 222 (Given - Provider: Amy Alejandro RN)09 (Given - Provider: Jillian Atkins RN) 206 (Given - Provider: Amy Alejandro RN) 650 mg (15.3 mg/kg), Oral, EVERY 6 HOURS PRN, mild pain, Starting on Sun10/26/21 at 1942, Maximum acetaminophen dose from all sources = 75 mg/kg/day not to exceed 4 grams/day. albuterol (PROVENTIL) neb solution 2.5 mg 2.5 mg (3 mL), Nebulization, EVERY 2 IDA RS PRN, wheezing, shortness of breath / dyspnea, Starting on Sun10/26/21 at 1712 guaiFENesin (ROBITUSSIN) 20 mg/mL solution 10 mL 181 (Given - Provider: Caridad Casiano RN) 10 mL, Oral, EVERY 4 HOURS PRN, other, s ecretion expectorant, Starting on Sun10/26/21 at 1712 HYDROmorphone (DILAUDID) injection 0.2 mg 0.2 mg (0.54052 mg/kg), Intravenous, CATHRYN RY 3 HOURS PRN, moderate to severe pain, Starting on Sun10/26/21 at 1943 lidocaine (LMX4) cream Topical, EVERY 1 HOUR PRN, pain, with VA D insertion, Starting on Sun10/26/21 at 1708, Apply at least 30 minutes prior to VAD insertion in divided doses as needed for size of site for insertion. MAX Dose : 2.5 g (?? of 5 g tube) Do NOT give if patient has a history of allergy to any local anesthetic or any tho product. Do NOT use both lidocaine intradermal/subcutaneous injection and the lidocaine cream on the same site. lidocaine 1 % 0.1-1 mL 0.1-1 mL, Other, EVERY 1 HOUR PRN, mild pain with VAD insertion, Starting on Sun10/26/21 at 1708, MAX dose 1 mL subcutaneous OR intradermal along the side of the vein in divided doses as needed for VAD insertion. Do NOT give if patient has a history of allergy to any local anesthetic or any tho product. Do NOT use both lidocaine intradermal/subcutaneous injection and the lidocaine cream on the same site. melatonin tablet 1 mg 2032 (Given - Provider: Sangeeta Watts RN) 1 mg, Oral, AT BEDTIME PRN, sleep, Start ing on Sun10/26/21 at 1708, Do not give unless at least 6 hours of uninterrupted sleep is expected. naloxone (NARCAN) injection 0.2 mg(Linked Group 1) 0.2 mg (0.60555 mg/kg), Intravenous, CATHRYN RY 2 MIN PRN, opioid reversal, Starting on Sun10/26/21 at 1945, Administer intravenous route when available and notify provider when administered. For unintended sedation or respiratory depression if al l of the below criteria are met: ~ respiratory rate LESS than or EQUAL to 8. ~SaO2 less than 92% and or/end-tidal CO2 is greater than 50. ~ the patient is receivi ng an opioid, has unintended sedations a ssessed as RASS (-3), and is currently not on mechanical ventilation. RASS scale moderate (-3) is movement or eye opening to voice but no eye contact. Patient Mon itoring Once the patient has demonstrate d a response to the naloxone, continue to monitor respiratory rate, depth, oxygen saturation and end-tidal CO2 (if available) every 15 minutes x 2, then every 30 minutes x 2, then every 1 hour x 1 after each naloxone dose. Consider transfer to ICU if patient respiratory parameters have not improved after 4 naloxone doses. naloxone (NARCAN) injection 0.2 mg(Linked Group 1) 0.2 mg (0.93485 mg/kg), Intramuscular, E VERY 2 MIN PRN, opioid reversal, Starting on Sun10/26/21 at 1945, Administer intramuscular if an intravenous route is not available and notify provider when admin istered. For unintended sedation or resp iratory depression if all of the below criteria are met: ~ respiratory rate LESS than or EQUAL to 8. ~SaO2 less than 92% and or/end-tidal CO2 is greater than 50. ~ the patient is receiving an opioid, hinojosa s unintended sedations assessed as RASS (-3), and is currently not on mechanical ventilation. RASS scale moderate (-3) is movement or eye opening to voice but no eye contact. Patient Monitoring Once the patient has demonstrated a response to the naloxone, continue to monitor respiratory rate, depth, oxygen saturation and end-tidal CO2 (if available) every 15 min utes x 2, then every 30 minutes x 2, the n every 1 hour x 1 after each naloxone dose. Consider transfer to ICU if patient respiratory parameters have not improved after 4 naloxone doses. naloxone (NARCAN) injection 0.4 mg(Linked Group 1) 0.4 mg (0.21901 mg/kg), Intravenous, CATHRYN RY 2 MIN PRN, opioid reversal, Starting on Sun10/26/21 at 1944, Administer intravenous route when available and notify provider when administered. For unintended sedation or respiratory depression if al l of the below criteria are met: ~ respiratory rate LESS than or EQUAL to 8. ~ SaO2 less than 92% and or/end-tidal CO2 is greater than 50. ~ the patient is receiv ing an opioid, has unintended sedation a ssessed as RASS (-4) or (-5) and patient is currently not on mechanical ventilation. RASS scale (-4) is deep sedation with no response to voice but movement or ey e opening to physical stimulation. RASS scale (-5) is unarousable. Patient Monitoring Once the patient has demonstrated a response to the naloxone, continue to monitor respiratory rate, depth, oxygen sa turation and end-tidal CO2 (if available ) every 15 minutes x 2, then every 30 minutes x 2, then every 1 hour x 1 after each naloxone dose. Consider transfer to ICU if patient respiratory parameters have not improved after 4 naloxone doses. naloxone (NARCAN) injection 0.4 mg(Linked Group 1) 0.4 mg (0.60159 mg/kg), Intramuscular, E VERY 2 MIN PRN, opioid reversal, Starting on Sun10/26/21 at 1945, Administer intramuscular if an intravenous route is not available and notify provider when admin istered. For unintended sedation or resp iratory depression if all of the below criteria are met: ~ respiratory rate LESS than or EQUAL to 8. ~ SaO2 less than 92% and or/end-tidal CO2 is greater than 50. ~ the patient is receiving an opioid, h as unintended sedation assessed as RASS (-4) or (-5) and patient is currently not on mechanical ventilation. RASS scale (-4) is deep sedation with no response to voice but movement or eye opening to phy sical stimulation. RASS scale (-5) is unarousable. Patient Monitoring Once the patient has demonstrated a response to the naloxone, continue to monitor respirator y rate, depth, oxygen saturation and end -tidal CO2 (if available) every 15 minutes x 2, then every 30 minutes x 2, then every 1 hour x 1 after each naloxone dose. Consider transfer to ICU if patient res piratory parameters have not improved after 4 naloxone doses. ondansetron (ZOFRAN) injection 4 mg(Linked Group 2) 4 mg, Intravenous, EVERY 6 HOURS PRN, na usea, vomiting, Administer over 2-5 Minutes, Starting on Sun10/26/21 at 1708, Give IF patient unable to tolerate oral medication. This is Step 1 of nausea and vom iting management. If nausea not resolved in 15 minutes, go to Step 2 prochlorperazine (COMPAZINE). Irritant. ondansetron (ZOFRAN-ODT) ODT tab 4 mg(Linked Group 2) 4 mg, Oral, EVERY 6 HOURS PRN, nausea, v omiting, Starting on Sun10/26/21 at 1708, This is Step 1 of nausea and vomiting management. If nausea not resolved in 15 minutes, go to Step 2 prochlorperazine (C OMPAZINE). With dry hands, peel back foi l backing and gently remove tablet. Do not push oral disintegrating tablet through foil backing. Administer immediately on tongue and oral disintegrating tablet d issolves in seconds, then swallow with saliva. Liquid not requir ed. oxyCODONE (ROXICODONE) tablet 5 mg (CANCELED) 1956 (Gi willy - Provider: Caridad Casiano RN) 0005 (Given - Provider: Amy L Clarkin, RN)0554 (Given - Provider: Tammi Sarabia V RN)1017 (Given - Provider: Jillian Atkins, RICHY) 5 mg (0.118 mg/kg), Oral, EVERY 4 HOURS PRN, moderate to severe pain, Starting on Sun10/26/21 at 1943 oxyCODONE (ROXICODONE) tablet 5 mg 1554 (Given - Provider: Priscilla Watts, RN) 0046 (Given - Provider: Amy Alejandro, RN)0524 (Given - Provider: Ruddy Valle, RICHY)0850 (Given - Provider: Rea Ch RN) 5 mg (0.113 mg/kg), Oral, EVERY 3 HOURS PRN, moderate to severe pain, Starting on Maida 10/27/21 at 1200 prochlorperazine (COMPAZINE) injection 10 mg(Linked Group 3) 10 mg, Intravenous, EVERY 6 HOURS PRN, n ausea, vomiting, Administer over 1-2 Minutes, Starting on Sun10/26/21 at 1708, Give IF patient unable to tolerate oral medication. This is Step 2 of nausea and vo miting management. Give if nausea not re solved 15 minutes after giving ondansetron (ZOFRAN). If nausea not resolved in 15-30 minutes, Notify provider. prochlorperazine (COMPAZINE) suppository 25 mg(Linked Group 3) 25 mg, Rectal, EVERY 12 HOURS PRN, nause a, vomiting, Starting on Sun10/26/21 at 1708, This is Step 2 of nausea and vomiting management. Give if nausea not resolved 15 minutes after giving ondansetron (Z OFRAN). If nausea not resolved in 15-30 minutes, Notify provider . prochlorperazine (COMPAZINE) tablet 10 mg(Linked Group 3) 10 mg, Oral, EVERY 6 HOURS PRN, vomiting , Starting on Sun10/26/21 at 1708, This is Step 2 of nausea and vomiting management. Give if nausea not resolved 15 minutes after giving ondansetron (ZOFRAN). If nausea not resolved in 15-30 minutes, Notify provider. sodium chloride (PF) 0.9% PF flush 3 mL 3 mL, Intracatheter, EVERY 1 MIN PRN, li ne flush, other, to ensure patency or to lock dormant line, Starting on Sun10/26/21 at 1708 [facility] Order Group 1: naloxone (NARCAN) injection 0.2 mgJump to med 0.2 mg (0.92849 mg/kg), Intravenous, CATHRYN RY 2 MIN PRN, opioid reversal, Starting on Sun10/26/21 at 1945
Administer intravenous route when available and notify provider when administered.&nbs p;For unintended sedation or respiratory depression if all of the below criteria are met: ~ respiratory rate LESS than or EQUAL to 8. ~SaO2 less than 92% and or/end-tidal CO2 is great er than 50. ~ the patient is receiv ing an opioid, has unintended sedations assessed as RASS (-3), and is currently not on mechanical ventilation. RASS scale moderate (-3) is movement or eye opening to voice but no eye contact. Patient Monitoring Once the patient has demonstrated a response to the naloxone, continue to monitor respiratory rate, de pth, oxygen saturation and end-tidal CO2 (if available) every 15 minutes x 2, then every 30 minutes x 2, then every 1 hour x 1 after each naloxone dose. Consider transfer to ICU if pa tient respiratory parameters have not im proved after 4 naloxone doses.
Or naloxone (NARCAN) injection 0.4 mgJump to med 0.4 mg (0.01871 mg/kg), Intravenous, CATHRYN RY 2 MIN PRN, opioid reversal, Starting on Sun10/26/21 at 1945
Administer intravenous route when available and notify provider when administered.&nbs p;For unintended sedation or respiratory depression if all of the below criteria are met: ~ respiratory rate LESS than or EQUAL to 8. ~ SaO2 less than 92% and or/end-tidal CO2 is great er than 50. ~ the patient is receiv ing an opioid, has unintended sedation assessed as RASS (-4) or (-5) and patient is currently not on mechanical ventilation. RASS scale (-4 ) is deep sedation with no response to v oice but movement or eye opening to physical stimulation. RASS scale (-5) is unarousable. Patient Monito ring Once the patient has demonstra norm a response to the naloxone, continue to monitor respiratory rate, depth, oxygen saturation and end-tidal CO2 (if available) every 15 minutes x 2, then cathryn ry 30 minutes x 2, then every 1 hour x 1 after each naloxone dose. Consider transfer to ICU if patient respiratory parameters have not improved after 4 naloxone doses.
Or naloxone (NARCAN) injection 0.2 mgJump to med 0.2 mg (0.25952 mg/kg), Intramuscular, E VERY 2 MIN PRN, opioid reversal, Starting on Sun10/26/21 at 1945
Administer intramuscular if an intravenous route is not available and notify provider wh en administered. For unintended sed ation or respiratory depression if all of the below criteria are met: ~ respiratory rate LESS than or EQUAL to 8. ~SaO2 less than 92% and o r/end-tidal CO2 is greater than 50.&nbsp ;~ the patient is receiving an opioid, has unintended sedations assessed as RASS (-3), and is currently not on mechanical ventilation. RASS scale moderate (-3) is movement or eye opening to voice but no eye contact. Patient Monitoring Once the patient has demonstrated a response to the naloxone, continue to lesly tor respiratory rate, depth, oxygen satu ration and end-tidal CO2 (if available) every 15 minutes x 2, then every 30 minutes x 2, then every 1 hour x 1 after each naloxone dose. Consid er transfer to ICU if patient respirator y parameters have not improved after 4 naloxone doses.
Or naloxone (NARCAN) injection 0.4 mgJump to med 0.4 mg (0.40768 mg/kg), Intramuscular, E VERY 2 MIN PRN, opioid reversal, Starting on Sun10/26/21 at 1945
Administer intramuscular if an intravenous route is not available and notify provider wh en administered. For unintended sed ation or respiratory depression if all of the below criteria are met: ~ respiratory rate LESS than or EQUAL to 8. ~ SaO2 less than 92% and o r/end-tidal CO2 is greater than 50.&nbsp ;~ the patient is receiving an opioid, has unintended sedation assessed as RASS (-4) or (-5) and patient is currently not on mechanical ventilation. RASS scale (-4) is deep sedation w ith no response to voice but movement or eye opening to physical stimulation. RASS scale (-5) is unarousable. Patient Monitoring Once the p atient has demonstrated a response to the naloxone, continue to monitor respiratory rate, depth, oxygen saturation and end-tidal CO2 (if available) every 15 minutes x 2, then every 30 minutes x 2, then every 1 hour x 1 after each naloxone dose. Consider transfer to ICU if patient respiratory parameters have not improved after 4 naloxone doses.
Group 2: ondansetron (ZOFRAN-ODT) ODT tab 4 mgJump to med 4 mg, Oral, EVERY 6 HOURS PRN, nausea, v omiting, Starting on Sun10/26/21 at 1708
This is Step 1 of nausea and vomiting management. If nausea not resolved in 15 minutes, go to Step 2 prochlorperazine (COMPAZINE).&nb sp;With dry hands, peel back foil backing and gently remove tablet. Do not push oral disintegrating tablet through foil backing. Administer immediately on ton araceli and oral disintegrating tablet disso lves in seconds, then swallow with saliva. Liquid not required.
Or ondansetron (ZOFRAN) injection 4 mgJump to med 4 mg, Intravenous, EVERY 6 HOURS PRN, na usea, vomiting, Administer over 2-5 Minutes, Starting on Sun10/26/21 at 1708
Give IF patient unable to tolerate oral medication. This is Step 1 of nausea and vomiting management. If na usea not resolved in 15 minutes, go to Step 2 prochlorperazine (COMPAZINE). Irritant.
Group 3: prochlorperazine (COMPAZINE) injection 10 mgJump to med 10 mg, Intravenous, EVERY 6 HOURS PRN, n ausea, vomiting, Administer over 1-2 Minutes, Starting on Sun10/26/21 at 1708
Give IF patient unable to tolerate oral medication. This is Step 2 of nausea and vomiting management. Give if nausea not resolved 15 minutes after giving ondansetron (ZOFRAN). If nausea not resolved in 15-30 minutes, Notify provider.
Or prochlorperazine (COMPAZINE) tablet 10 mgJump to med 10 mg, Oral, EVERY 6 HOURS PRN, vomiting , Starting on Sun10/26/21 at 1708
This is Step 2 of nausea and vomiting management. Give if nausea not resolved 15 minutes after giving ondansetron (ZOFR AN). If nausea not resolved in 15-3 0 minutes, Notify provider.
Or prochlorperazine (COMPAZINE) suppository 25 mgJump to med 25 mg, Rectal, EVERY 12 HOURS PRN, nause a, vomiting, Starting on Sun10/26/21 at 1708
This is Step 2 of nausea and vomiting management. Give if nausea not resolved 15 minutes after giving ondans etron (ZOFRAN). If nausea not resol delma in 15-30 minutes, Notify provider.
documented in this encounter Care Teams Investments Manager Relationship Specialty Start Date End Date Melissa Waite, PCP - General Physician Behavioral Instructor 10/26/21 [facility] [id number] [place] [address] Sammie Salguero Referring Physician 10/16/16 [id number] [place], [place] [id number] [facility] 10/16/16 Perry Rasmussen MD [address] [place] [address] documented as of this encounter
--- OUTSIDE RECORDS SUMMARY | 2022-08-25 14:26 | XMS_ITS | Encounter Summary ---
:1960 Author Organization [place] Address [address] [facility] [address] Care Team Providers Name Role Phone [facility] [phone] [facility] Unavailable [phone] Guru Perry Conrad MD Unavailable + Jazmin Puentes RN Unavailable Unavailable Neyda Jazmine BETO Unavailable Jennifer Redmond Unavailable Reason for Visit Reason Comments Abdominal Pain Auth/Cert Specialty Diagnoses / Procedures Referred By Contact Refer red To Contact Diagnoses Alcohol-induced acute pancreatitis without infection or necrosis Pancreatitis 3 [facility] [address] [place], [place] [address] Phone: Fax: Referral ID Status Reason Start Date Expiration Date Visits Requ ested Visits Authorized [id number] 1 1 Encounter Details Date Type Department Care Team Description 03/27/2018 - [facility] Juan Donahue MD [facility] [address] [place] [address] Alcohol abuse (Primary Dx); 04/01/2018 Encounter [facility] HermosilloPaz MD [address] [place] [address] Alcohol-induced acute pancreatitis witho ut infection or necrosis; Surgical Hypokalemia [address] [place] [address] Social History Tobacco Use Types Packs/Day Years Used Date Current Every Day Smoker 1 28 Alcohol Use Standard Drinks/Week Comments Yes 1.7 (1 standard drink = 0.6 oz pure alco hol) Sex Assigned at Date Recorded Not on file documented as of this encounter Last Filed Vital Signs Vital Sign Reading Time Taken Comments Blood Pressure 159/99 04/01/2018 3:50 PM CDT Pulse 82 04/01/2018 8:02 AM CDT Temperature 37.4 ??C (99.4 ??F) 04/01/2018 3:50 PM CDT Respiratory Rate 20 04/01/2018 3:50 PM CDT Oxygen Saturation 95% 04/01/2018 3:50 PM CDT Inhaled Oxygen Concentration - - Weight 54.1 kg (119 lb 3.2 oz) 03/27/2018 1:35 PM CDT Height 172.7 cm (5' 8) 03/27/2018 1:35 PM CDT Body Mass Index 18.12 03/27/2018 1:35 PM CDT documented in this encounter Discharge Summaries León Lagos MD - 04/01/2018 1:29 PM CDT Discharge Summary Hay Gutierrez Date of : 1960 Age: [age] year old Date of Admission: 03/27/2018 Date of Discharge: 04/01/2018 Admitting Physician: Paz Hermosillo MD Discharge Physician: León Lagos MD Discharging Service: Hospitalist [facility]: [facility] Discharge Diagnosis: 1. ??Acute pancreatitis, most likely due to alcohol abuse. ??Resolved. ? 2. ??Alcohol dependence with acute alcohol withdrawal. ??Withdrawal resolved. ? 3. ??Tobacco use disorder. ? 4. ??COPD, without acute exacerbation. ? 5. ??Elevated lactate, due to acute pancreatitis and dehydration. Resolved. ? 6. ??Leukocytosis, due to acute pancreatitis. Resolved. ? 7. 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 ? 8. ??Hypertension. ? 9. ??Physical deconditioning. ??Improving. ?? 10. ??Some intention tremor at baseline. Discharge Disposition: Discharged to home Allergies: No Known Allergies Condition on Discharge: Discharge condition: Stable Discharge vitals: Blood pressure 140/89, pulse 82, temperature 98.8 ??F (37.1 ??C), temperature source Oral, resp. rate 20, height 1.727 m (5' 8), weight 54.1 kg (119 lb 3.2 oz), SpO2 92 %. Code status on discharge: Full Code Physical exam on day of discharge: GENERAL: Comfortable. Cooperative. PSYCH: pleasant, oriented, No acute distress. EYES: PERRLA, Normal conjunctiva. HEART: Regular rate and rhythm. No JVD. Pulses normal. No edema. LUNGS: Clear to auscultation, normal Respiratory effort. ABDOMEN: Soft, no hepatosplenomegaly, normal bowel sounds. EXTREMETIES: No clubbing, cyanosis or ischemia SKIN: Dry to touch, No rash. NEURO: Some intention tremor History of Present Illness and Hospital Course: See detailed admission note for full details. Hay Mcqueen.??Matt is a 58 year old male with history of??hypertension, COPD, prior CVA, and alcohol abuse with??dependence and pancreatitis. ??He had been sober for 9 months but had relapse of drinking early in the year that had persisted. ??He presented to the ED on 03/27/18 for evaluation of abdominal pain. ??ED work up showed acute pancreatitis with elevated lipase of 8581 and pain consistent with pancreatitis. ??He was admitted to the hospital with acute alcoholic pancreatitis. ??Hosptial course was complicated by acute alcohol withdrawal. Pancreatitis resolved with conservative cares. Alcohol withdrawal resolved with CIWA protocol. Hay worked withPhysical Therapy and his strength is improving. He wants to discharge home today. He plans to attendalcoholics anonymous meetings with his son to help stay sober. ? Procedures / Imaging: None Consultations: No consultations were requested during this admission Pending Results: None Discharge Instructions and Follow-Up: Discharge diet: Regular Discharge activity: Activity as tolerated Discharge follow-up: Follow up with primary care provider in 1 week with [facility] Outpatient therapy: None Other instructions: Follow up with alcoholics anonymous Discharge Medications: Current Discharge Medication List START taking these medications Details folic acid (FOLVITE) 1 MG tablet Take 1 tablet (1 mg) by mouth daily Qty: 30 tablet, Refills: 0 Associated Diagnoses: Alcohol abuse multivitamin, therapeutic with minerals (THERA-VIT-M) TABS tablet Take 1 tablet by mouth daily Qty: 30 each, Refills: 1 Associated Diagnoses: Alcohol abuse potassium chloride SA (K-DUR/KLOR-CON M) 20 MEQ CR tablet Take 1 tablet (20 mEq) by mouth daily for 5 days Qty: 5 tablet, Refills: 0 Associated Diagnoses: Hypokalemia CONTINUE these medications which have NOT CHANGED [...] Inhale 62.5 mcg into the lungs daily Total time spent in face to face contact with the patient and coordinating discharge was: 35 Minutes documented in this encounter Discharge Instructions AttachmentsThe following attachments cannot be sent through Care Everywhere. ALCOHOLISM: RESOURCES FOR FAMILY AND FRIENDS (FRENCH)POTASSIUM CHLORIDE ORAL TABLET (FRENCH)documented in this encounter Medications at Time of Discharge Medication Sig Dispensed Refills Start Date End Date aspirin (ASA) 325 MG EC Take 325 mg by 0 tablet mouth daily atenolol (TENORMIN) 25 MG Take 25 mg by mouth 0 tablet daily (with dinner) lisinopril (ZESTRIL) 20 MG Take 20 mg by mouth 0 tablet daily (with dinner) potassium chloride SA Take 1 tablet (20 5 tablet 0 018 04/06/2018 (K-DUR/KLOR-CON M) 20 MEQ mEq) by mouth daily CR tabletIndications: for 5 days Hypokalemia fluticasone - vilanterol Inhale 1 puff into 0 10/26/2021 (BREO ELLIPTA) 100-25 the lungs daily MCG/INH oral inhaler folic acid (FOLVITE) 1 MG Take 1 tablet (1 30 tablet 0 03/1904/16/2020 tabletIndications: Alcohol mg) by mouth daily abuse multivitamin, therapeutic Take 1 tablet by 30 each 1 03/1904/16/2020 with minerals mouth daily (THERA-VIT-M) TABS tabletIndications: Alcohol abuse umeclidinium bromide Inhale 62.5 mcg 0 10/26/2021 (INCRUSE ELLIPTA) 62.5 into the lungs MCG/INH inhalation capsule daily Vitamin D3 (VITAMIN D3) 25 Take 1,000 Units by 0 04/16/2020 mcg (1000 units) tablet mouth daily documented as of this encounter Progress Notes León Lagos MD - 03/31/2018 3:04 PM CDT [facility] Hospitalist Progress Note Assessment & Plan Summary: ??Hay Mcqueen.??Matt is a 58 year old male with history of??hypertension, COPD, prior CVA, and alcohol abuse with??dependence and pancreatitis. ??He had been sober for several months but had relapse of drinking early in the year that had persisted. ??He presented to the ED on 03/27/18 for evaluation of abdominal pain. ??ED work up showed acute pancreatitis with elevated lipase of 8581 and pain consistent with pancreatitis. ??He was admitted to the hospital with acute alcoholic pancreatitis. ??Hosptial course was complicated by acute alcohol withdrawal and physical deconditioning. ? Problem list: ? 1. ??Acute pancreatitis, most likely due to alcohol abuse. ??Resolved. ??Change diet to regular. ? 2. ??Alcohol dependence with acute alcohol withdrawal. ??No longer needing ativan. D/c CIWA protocoltomorrow if still not needing treatment. ? 3. ??Tobacco use disorder. ??Continue nicotine patch. ? 4. ??COPD. ??There seems to be no acute exacerbation. ? 5. ??Elevated lactate, due to acute pancreatitis and dehydration, resolved. ? 6. ??Leukocytosis, due to acute pancreatitis, resolved. ? 7. ??Remote stroke with??right-sided weakness. ? 8. ??Hypertension. ??Continue??prior to admission atenolol and resume prior to admission lisinopril. ? 9. ??Physical deconditioning. ??PT consult appreciated. Hay is weak but expected to improve relatively quickly. ?? 10. ??Some intention tremor at baseline. # Pain Assessment: Current Pain Score 03/31/2018 Patient currently in pain? denies Pain score (0-10) 0 Pain location - Pain descriptors - Hay???s pain level was assessed and he currently denies pain. DVT Prophylaxis: Pneumatic Compression Devices Code Status: Full Code Disposition: Expected discharge in 1-2 days once stronger. León Lagos Interval History Doing better. Stronger today. Eating well. No pain. -Data reviewed today: I reviewed all new labs and imaging results over the last 24 hours. I personally reviewed no images or EKG's today. Physical Exam Temp: 99.1 ??F (37.3 ??C) Temp src: Oral BP: (!) 161/99 Heart Rate: 80 Resp: 18 SpO2: 92 % O2 Device: None (Room air) Vitals: 03/27/18 0851 03/27/18 1335 Weight: 54.9 kg (121 lb) 54.1 kg (119 lb 3.2 oz) Vital Signs with Ranges Temp: [96.5 ??F (35.8 ??C)-99.1 ??F (37.3 ??C)] 99.1 ??F (37.3 ??C) Heart Rate: [79-88] 80 Resp: [18] 18 BP: (148-176)/(95-108) 161/99 SpO2: [92 %-94 %] 92 % I/O last 3 completed shifts: In: 1904 [P.O.:100; I.V.:180] Out: 2124 [Urine:2124] GENERAL: Comfortable. Cooperative. PSYCH: pleasant, oriented, No acute distress. EYES: PERRLA, Normal conjunctiva. HEART: Regular rate and rhythm. No JVD. Pulses normal. No edema. LUNGS: Clear to auscultation, normal Respiratory effort. ABDOMEN: Soft, no hepatosplenomegaly, normal bowel sounds. EXTREMETIES: No clubbing, cyanosis or ischemia SKIN: Dry to touch, No rash. Medications ??? aspirin EC tablet 325 mg 325 mg Oral Daily ??? atenolol (TENORMIN) tablet 25 mg 25 mg Oral Daily with supper ??? cholecalciferol (vitamin D3) tablet 1,000 Units 1,000 Units Oral Daily ??? fluticasone-vilanterol 1 puff Inhalation Daily ??? folic acid 1 mg Oral Daily ??? lisinopril 20 mg Oral QPM ??? multivitamin, therapeutic with minerals 1 tablet Oral Daily ??? nicotine 1 patch Transdermal Daily ??? nicotine Transdermal Q8H ??? nicotine Transdermal Daily ??? omeprazole 20 mg Oral QAM AC ??? umeclidinium 62.5 mcg Inhalation Daily Data Recent Labs Lab 03/31/18 0630 03/29/18 0725 03/28/18 0752 03/27/18 0859 WBC -- 8.8 11.0 11.3* HGB -- 11.7* 12.8* 14.6 MCV -- 114* 115* 116* PLT -- 110* 148* 216 NA 140 136 139 137 POTASSIUM 3.2* 3.4 4.2 4.2 CHLORIDE 107 106 108 103 CO2 25 21 23 27 BUN 3* 8 10 14 CR 0.54* 0.54* 0.54* 0.74 ANIONGAP 8 9 8 7 TRAY 8.0* 7.8* 7.8* 9.5 GLC 106* 60* 76 188* ALBUMIN -- -- 2.8* 3.9 PROTTOTAL -- -- 5.6* 7.4 BILITOTAL -- -- 0.6 0.4 ALKPHOS -- -- 63 89 ALT -- -- 15 25 AST -- -- 43 70* LIPASE -- 671* 4628* 8581* No results found for this or any previous visit (from the past 24 hour(s)). Víctor Marc, PT - 03/31/2018 10:41 AM CDT 03/31/18 1026 Quick Adds Type of Visit Initial PT Evaluation Living Environment Lives With spouse Living Arrangements house Number of Stairs to Enter Home 3 Number of Stairs Within Home (main floor bed/bath, rambler style home) Stair Railings at Home none Living Environment Comment Pt does not work, spouse and son work, pt alone during the day for several hours. Self-Care Dominant Hand right Usual Activity Tolerance good Current Activity Tolerance moderate Regular Exercise no Equipment Currently Used at Home cane, straight Activity/Exercise/Self-Care Comment Pt states he uses SEC prn, otherwise functions fairly indep at baseline. Functional Level Prior Ambulation 1-->assistive equipment Transferring 0-->independent Toileting 0-->independent Bathing 0-->independent Dressing 0-->independent Eating 0-->independent Communication 0-->understands/communicates without difficulty Swallowing 0-->swallows foods/liquids without difficulty Cognition 0 - no cognition issues reported Fall history within last six months yes Number of times patient has fallen within last six months 1 (fell on ice last ) Which of the above functional risks had a recent onset or change? ambulation;transferring;fall history Prior Functional Level Comment Indep baseline level of function, enjoys working in his garage and fishing. General Information Onset of Illness/Injury or Date of Surgery - Date 03/30/18 Referring Physician León Lagos MD Patient/Family Goals Statement pt wants to return home Pertinent History of Current Problem (include personal factors and/or comorbidities that impact the POC) 58 year old male with history of hypertension, COPD, prior CVA, and alcohol abuse with dependence and pancreatitis. He had been sober but had relapse of drinking early in the year that had persisted. He presented to the ED on 03/27/18 for evaluation of abdominal pain. ED work up showed acute pancreatitis with elevated lipase of 8581 and pain consistent with pancreatitis. He was admitted to the hospital with acute alcoholic pancreatitis. Hosptial course was complicated by acute alcohol withdrawal. Pt does indicate hx of CVA with resultant R sided weakness/incoordination/numbness. Precautions/Limitations fall precautions General Observations pt awake and alert, wanting to get walking. Cognitive Status Examination Orientation orientation to person, place and time Pain Assessment Patient Currently in Pain No Integumentary/Edema Integumentary/Edema no deficits were identifed Posture Posture Forward head position;Protracted shoulders Range of Motion (ROM) ROM Comment WNL BLEs and AROM B shoulders > 120 deg Strength Strength Comments Generalized weakness B hips, R hip weaker than L, pt indicates due to previous CVA. B ankle DF 5/5, knee ext 5/5, R hip flexion 4-/5, L hip flexion 4/5. Bed Mobility Bed Mobility Comments SBA with use of bed railing Transfer Skills Transfer Comments CGA sit <> stand transfers, mild retropulsion noted, compensating with FWW well. Gait Gait Comments Amb with slower gait speed, FWW support, unsteady at times especially with turns/pivots, CGA for safety. Balance Balance Comments Impaired standing balance and gait stability noted, needing CGA for safety and FWW support. NBOS EO x 15 sec mild sway, tendency for retropulsion. Sensory Examination Sensory Perception Comments mild numbness reported R leg from previous CVA Coordination Coordination Comments mild ataxic finger to nose pattern R hand, mild tremor noted B hands. General Therapy Interventions Planned Therapy Interventions balance training;gait training;neuromuscular re-education;strengthening;transfer training;risk factor education;home program guidelines;progressive activity/exercise Clinical Impression Criteria for Skilled Therapeutic Intervention yes, treatment indicated PT Diagnosis Impaired gait stability and balance Influenced by the following impairments Impaired balance, weakness, mild tremor/incoordination Functional limitations due to impairments Impaired safety and tolerance with functional transfers, gait stability, fall risk, stairs Clinical Presentation Stable/Uncomplicated Clinical Presentation Rationale improving medical status, indep PLOF, age, current clinical presentation Clinical Decision Making (Complexity) Low complexity Therapy Frequency` daily Predicted Duration of Therapy Intervention (days/wks) 3-5 days Anticipated Equipment Needs at Discharge (owns SEC and FWW) Anticipated Discharge Disposition Home with Assist Risk & Benefits of therapy have been explained Yes Patient, Family & other staff in agreement with plan of care Yes [facility] AM-PAC TM 6 Clicks ?? 2016, Trustees of [facility], under license to [employer]. All rights reserved. 6 Clicks Short Forms Basic Mobility Inpatient Short Form [facility]??? 6 Clicks V.2 Basic Mobility Inpatient Short [...] Total Evaluation Time Total Evaluation Time (Minutes) 20 León Lagos MD - 03/30/2018 4:07 PM CDT [facility] Hospitalist Progress Note Assessment & Plan Summary: ??Hay P.??Matt is a 58 year old male with history of??hypertension, COPD, prior CVA, and alcohol abuse with??dependence and pancreatitis. ??He had been sober but had relapse of drinking early in the year that had persisted. ??He presented to the ED on 03/27/18 for evaluation of abdominal pain. ??ED work up showed acute pancreatitis with elevated lipase of 8581 and pain consistent with pancreatitis. ??He was admitted to the hospital with acute alcoholic pancreatitis. Hosptial course was complicated by acute alcohol withdrawal. ?? Problem list: ? 1. ??Acute pancreatitis, most likely due to alcohol abuse. ??Resolved. Continue low fat diet. ? 2. ??Alcohol dependence with acute alcohol withdrawal. ??Needing less ativan. Continue to monitor. ? 3. ??Tobacco use disorder. ??Continue nicotine patch. ? 4. ??COPD. ??There seems to be no acute exacerbation. ? 5. ??Elevated lactate, due to acute pancreatitis and dehydration, resolved. ? 6. ??Leukocytosis, due to acute pancreatitis, resolved. ? 7. ??Remote stroke with??right-sided weakness. ? 8. ??Hypertension. ??Continue??prior to admission atenolol and resume prior to admission lisinopril. ?? 9. Physical deconditioning. PT tomorrow. 10. Some intention tremor at baseline. # Pain Assessment: Current Pain Score 03/30/2018 Patient currently in pain? yes Pain score (0-10) 2 Pain location Abdomen Pain descriptors Discomfort - Hay is experiencing pain due to resolving pancreatitis. Pain management was discussed and the plan was created in a collaborative fashion. Hay's response to the current recommendations: compliant - Please see the plan for pain management as documented above DVT Prophylaxis: Pneumatic Compression Devices Code Status: Full Code Disposition: Expected discharge in 2 days once stronger. Lenó Lagos Interval History No new problems. Doing better with less tremor. Still weak. -Data reviewed today: I reviewed all new labs and imaging results over the last 24 hours. I personally reviewed no images or EKG's today. Physical Exam Temp: 96.6 ??F (35.9 ??C) Temp src: Axillary BP: 138/83 Heart Rate: 104 Resp: 20 SpO2: 93 % O2 Device: None (Room air) Vitals: 03/27/18 0851 03/27/18 1335 Weight: 54.9 kg (121 lb) 54.1 kg (119 lb 3.2 oz) Vital Signs with Ranges Temp: [96.3 ??F (35.7 ??C)-98.4 ??F (36.9 ??C)] 96.6 ??F (35.9 ??C) Heart Rate: [86-104] 104 Resp: [18-20] 20 BP: (138-172)/(83-112) 138/83 SpO2: [91 %-95 %] 93 % I/O last 3 completed shifts: In: 1214 [P.O.:400; I.V.:814] Out: 375 [Urine:375] GENERAL: Comfortable. Cooperative. PSYCH: pleasant, oriented, No acute distress. EYES: PERRLA, Normal conjunctiva. HEART: Regular rate and rhythm. No JVD. Pulses normal. No edema. LUNGS: Clear to auscultation, normal Respiratory effort. ABDOMEN: Soft, no hepatosplenomegaly, normal bowel sounds. EXTREMETIES: No clubbing, cyanosis or ischemia SKIN: Dry to touch, No rash. Medications ??? sodium chloride 75 mL/hr at 03/30/18 0825 ??? aspirin EC tablet 325 mg 325 mg Oral Daily ??? atenolol (TENORMIN) tablet 25 mg 25 mg Oral Daily with supper ??? cholecalciferol (vitamin D3) tablet 1,000 Units 1,000 Units Oral Daily ??? fluticasone-vilanterol 1 puff Inhalation Daily ??? folic acid 1 mg Oral Daily ??? lisinopril 20 mg Oral QPM ??? multivitamin, therapeutic with minerals 1 tablet Oral Daily ??? nicotine 1 patch Transdermal Daily ??? nicotine Transdermal Q8H ??? nicotine Transdermal Daily ??? omeprazole 20 mg Oral QAM AC ??? thiamine 100 mg Oral Daily ??? umeclidinium 62.5 mcg Inhalation Daily Data Recent Labs Lab 03/29/18 0725 03/28/18 0752 03/27/18 0859 WBC 8.8 11.0 11.3* HGB 11.7* 12.8* 14.6 MCV 114* 115* 116* PLT 110* 148* 216 NA 136 139 137 POTASSIUM 3.4 4.2 4.2 CHLORIDE 106 108 103 CO2 21 23 27 BUN 8 10 14 CR 0.54* 0.54* 0.74 ANIONGAP 9 8 7 TRAY 7.8* 7.8* 9.5 GLC 60* 76 188* ALBUMIN -- 2.8* 3.9 PROTTOTAL -- 5.6* 7.4 BILITOTAL -- 0.6 0.4 ALKPHOS -- 63 89 ALT -- 15 25 AST -- 43 70* LIPASE 671* 4628* 8581* No results found for this or any previous visit (from the past 24 hour(s)). León Lagos MD - 03/29/2018 2:56 PM CDT [facility] Hospitalist Progress Note Assessment & Plan ?? Summary: Hay Gutierrez is a 58 year old male with history of hypertension, COPD, prior CVA, and alcohol abuse with dependence and pancreatitis. He had been sober but had relapse of drinking early inthe year that had persisted. He presented to the ED on 03/27/18 for evaluation of abdominal pain. ED work up showed acute pancreatitis with elevated lipase of 8581 and pain consistent with pancreatitis. He was admitted to the hospital with acute alcoholic pancreatitis. Hosptial course was complicated byacute alcohol withdrawal. ?? Problem list: ? 1. ??Acute pancreatitis, most likely due to alcohol abuse. Improved/nearly resolved. ADAT to low fatdiet. ? 2. ??Alcohol dependence with acute alcohol withdrawal. Ativan needs escalated overnight. Continue Ativan as needed for acute withdrawal. ? 3. ??Tobacco use disorder. Continue nicotine patch. ? 4. ??COPD. There seems to be no acute exacerbation. ?? 5. ??Elevated lactate, due to acute pancreatitis and dehydration, resolved. ? 6. ??Leukocytosis, due to acute pancreatitis, resolved. ? 7. ??Remote stroke with right-sided weakness. ? 8. ??Hypertension. Continue prior to admission atenolol and resume prior to admission lisinopril. 9. Physical deconditioning. PT once not needing so much Ativan. He may ultimately need TCU on discharge. 10. Some intention tremor at baseline. # Pain Assessment: Current Pain Score 03/29/2018 Patient currently in pain? denies Pain score (0-10) - Pain location - Pain descriptors - Hay???s pain level was assessed and he currently denies pain. DVT Prophylaxis: Pneumatic Compression Devices Code Status: Full Code Disposition: Expected discharge in 2-3 days once withdrawal resolves and strength improves. León Lagos Interval History More tremor and agitation overnight with higher Ativan needs. -Data reviewed today: I reviewed all new labs and imaging results over the last 24 hours. I personally reviewed no images or EKG's today. Physical Exam Temp: 98.4 ??F (36.9 ??C) Temp src: Oral BP: (!) 149/92 Heart Rate: 91 Resp: 18 SpO2: 93 % O2 Device: Nasal cannula Oxygen Delivery: 2 LPM Vitals: 03/27/18 0851 03/27/18 1335 Weight: 54.9 kg (121 lb) 54.1 kg (119 lb 3.2 oz) Vital Signs with Ranges Temp: [95.6 ??F (35.3 ??C)-98.4 ??F (36.9 ??C)] 98.4 ??F (36.9 ??C) Heart Rate: [91-100] 91 Resp: [18-22] 18 BP: (138-161)/(88-99) 149/92 SpO2: [91 %-99 %] 93 % I/O last 3 completed shifts: In: 1945 [P.O.:300; I.V.:1646] Out: 300 [Urine:300] GENERAL: Comfortable. Cooperative. Weak. PSYCH: pleasant, oriented, No acute distress. EYES: PERRLA, Normal conjunctiva. HEART: Regular rate and rhythm. No JVD. Pulses normal. No edema. LUNGS: Clear to auscultation, normal Respiratory effort. ABDOMEN: Soft, no hepatosplenomegaly, normal bowel sounds. EXTREMETIES: No clubbing, cyanosis or ischemia SKIN: Dry to touch, No rash. NEURO: Some intention tremor and some tremor due to withdrawal. Medications ??? sodium chloride 75 mL/hr at 03/29/18 0235 ??? aspirin EC tablet 325 mg 325 mg Oral Daily ??? atenolol (TENORMIN) tablet 25 mg 25 mg Oral Daily with supper ??? cholecalciferol (vitamin D3) tablet 1,000 Units 1,000 Units Oral Daily ??? fluticasone-vilanterol 1 puff Inhalation Daily ??? folic acid 1 mg Oral Daily ??? lisinopril 20 mg Oral QPM ??? multivitamin, therapeutic with minerals 1 tablet Oral Daily ??? nicotine 1 patch Transdermal Daily ??? nicotine Transdermal Q8H ??? nicotine Transdermal Daily ??? omeprazole 20 mg Oral QAM AC ??? thiamine 100 mg Oral Daily ??? umeclidinium 62.5 mcg Inhalation Daily Data Recent Labs Lab 03/29/18 0725 03/28/18 0752 03/27/18 0859 WBC 8.8 11.0 11.3* HGB 11.7* 12.8* 14.6 MCV 114* 115* 116* PLT 110* 148* 216 NA 136 139 137 POTASSIUM 3.4 4.2 4.2 CHLORIDE 106 108 103 CO2 21 23 27 BUN 8 10 14 CR 0.54* 0.54* 0.74 ANIONGAP 9 8 7 TRAY 7.8* 7.8* 9.5 GLC 60* 76 188* ALBUMIN -- 2.8* 3.9 PROTTOTAL -- 5.6* 7.4 BILITOTAL -- 0.6 0.4 ALKPHOS -- 63 89 ALT -- 15 25 AST -- 43 70* LIPASE 671* 4628* 8581* No results found for this or any previous visit (from the past 24 hour(s)). León Lagos MD - 03/28/2018 1:44 PM CDT [facility] Hospitalist Progress Note Assessment & Plan Summary: Hay Gutierrez is a 58 year old male with history of hypertension, COPD, prior CVA, and alcohol abuse with dependence and pancreatitis. He had been sober but had relapse of drinking early inthe year that had persisted. He presented to the ED on 03/27/18 for evaluation of abdominal pain. ED work up showed acute pancreatitis with elevated lipase of 8581 and pain consistent with pancreatitis. He was admitted to the hospital with acute alcoholic pancreatitis. Problem list: ?? 1. Acute pancreatitis, most likely due to alcohol abuse. Improving, needing only oral pain medication now. Start clear liquids. Decrease NS to 75 cc/hour. Repeat Lipase in the am and reassess clinically. Continue oral oxycodone as needed for abdominal pain. ?? 2. Alcohol dependence with acute alcohol withdrawal. Continue Ativan as needed for acute withdrawal. ?? 3. Tobacco use disorder. Continue nicotine patch. ?? 4. COPD. There seems to be no acute exacerbation. 5. Elevated lactate, due to acute pancreatitis and dehydration, resolved. ?? 6. Leukocytosis, due to acute pancreatitis, resolved. ?? 7. Remote stroke with right-sided weakness. ?? 8. Hypertension. Continue prior to admission atenolol and resume prior to admission lisinopril. # Pain Assessment: Current Pain Score 03/28/2018 Patient currently in pain? yes Pain score (0-10) 4 Pain location Abdomen Pain descriptors Aching;Discomfort - Hay is experiencing pain due to acute pancreatitis. Pain management was discussed and the plan was created in a collaborative fashion. Hay's response to the current recommendations: compliant - Please see the plan for pain management as documented above DVT Prophylaxis: Pneumatic Compression Devices Code Status: Full Code Disposition: Expected discharge in 2 days once ab pain resolves and low fat diet is tolerated without ongoing withdrawal. León Rey Lagos Interval History Doing well. Epigastric pain is better. No nausea or vomiting. -Data reviewed today: I reviewed all new labs and imaging results over the last 24 hours. I personally reviewed no images or EKG's today. Physical Exam Temp: 96.3 ??F (35.7 ??C) Temp src: Oral BP: (!) 149/93 Heart Rate: 84 Resp: 14 SpO2: 92 % O2 Device: None (Room air) Oxygen Delivery: 2 LPM Vitals: 03/27/18 0851 03/27/18 1335 Weight: 54.9 kg (121 lb) 54.1 kg (119 lb 3.2 oz) Vital Signs with Ranges Temp: [96.1 ??F (35.6 ??C)-98.4 ??F (36.9 ??C)] 96.3 ??F (35.7 ??C) Heart Rate: [74-95] 84 Resp: [14-18] 14 BP: (140-185)/(93-108) 149/93 SpO2: [91 %-97 %] 92 % I/O last 3 completed shifts: In: 2669 [P.O.:270; I.V.:2399] Out: - GENERAL: Comfortable. Cooperative. PSYCH: pleasant, oriented, No acute distress. EYES: PERRLA, Normal conjunctiva. HEART: Regular rate and rhythm. No JVD. Pulses normal. No edema. LUNGS: Clear to auscultation, normal Respiratory effort. ABDOMEN: Soft, no hepatosplenomegaly, normal bowel sounds. Mild epigastric pain with palpation. EXTREMETIES: No clubbing, cyanosis or ischemia SKIN: Dry to touch, No rash. Medications ??? sodium chloride 75 mL/hr at 03/28/18 1259 ??? aspirin EC tablet 325 mg 325 mg Oral Daily ??? atenolol (TENORMIN) tablet 25 mg 25 mg Oral Daily with supper ??? cholecalciferol (vitamin D3) tablet 1,000 Units 1,000 Units Oral Daily ??? fluticasone-vilanterol 1 puff Inhalation Daily ??? folic acid 1 mg Oral Daily ??? multivitamin, therapeutic with minerals 1 tablet Oral Daily ??? nicotine 1 patch Transdermal Daily ??? nicotine Transdermal Q8H ??? nicotine Transdermal Daily ??? omeprazole 20 mg Oral QAM AC ??? thiamine 100 mg Oral Daily ??? umeclidinium 62.5 mcg Inhalation Daily Data Recent Labs Lab 03/28/18 0752 03/27/18 0859 WBC 11.0 11.3* HGB 12.8* 14.6 MCV 115* 116* PLT 148* 216 NA 139 137 POTASSIUM 4.2 4.2 CHLORIDE 108 103 CO2 23 27 BUN 10 14 CR 0.54* 0.74 ANIONGAP 8 7 TRAY 7.8* 9.5 GLC 76 188* ALBUMIN 2.8* 3.9 PROTTOTAL 5.6* 7.4 BILITOTAL 0.6 0.4 ALKPHOS 63 89 ALT 15 25 AST 43 70* LIPASE 4628* 8581* No results found for this or any previous visit (from the past 24 hour(s)). documented in this encounter H&P Notes Paz Hermosillo MD - 03/27/2018 12:21 PM CDT [facility] Hospitalist Admission Note Name: Hay Gutierrez Date of : 1960 Age: [age] year old Date of admission: 03/27/2018 Primary care provider: Sammie Salguero Chief Complaint: Abdominal Pain Assessment and Plan: Hay Gutierrez is a 58 year old male with PMH including hypertension, COPD, prior CVA, alcohol abuse and dependence with relapse over the past few months and prior pancreatitis with necrosis who was admitted on 03/27/18 with nausea and abdominal pain and was found to have acute pancreatitis and acutealcohol withdrawal. 1. Acute pancreatitis: Has had prior episodes of alcoholic pancreatitis. Has been drinking for the past several months. Developed acute abdominal pain with nausea this morning. He has lipase of 8000. CT was obtained which shows a pancreatic fluid or edema but no necrosis or cyst. This is consistent with alcoholic pancreatitis. -Normal saline at 150 cc/h -Pain control with oral oxycodone or IV -Repeat lipase and CMP in the morning -N.p.o. 2. Alcohol dependence with acute alcohol withdrawal: Patient reports that he had been sober for about a year but started drinking early November. He reports that he has been drinking 4 cups per day. Last drink was the night prior to admission. He does have tremors and tachycardia. I suspect that he hasearly alcohol withdrawal. He has never had a withdrawal seizure in the past. -[facility] protocol -Oral vitamins -Consider chemical dependency consult once through withdrawal -Avoid alcohol use 3. Tobacco use disorder: Patient would like nicotine replacement therapy. Nicotine patch ordered. 4. COPD: Patient states he has chronic shortness of breath and intermittent cough. Admits that is likely as he has continued to smoke. No evidence of exacerbation. Continues prior to admission medications. Duo nebs will be available as needed. 5. Elevated lactate: I suspect this is due to acute pancreatitis, alcohol use and dehydration. At this time I do not think that he has a bacterial infection. Repeat lactate after hydration. 6. Leukocytosis: Patient has mild leukocytosis. No fever. I suspect that this is due to his acute pancreatitis. No indication for antibiotics at this time. Will repeat CBC in the morning. 7. Remote stroke reported right-sided weakness: No new neurological changes. 8. Hypertension: Prior to admission the patient was on lisinopril and atenolol. Continue atenolol with hold parameters. Hold lisinopril for now given acute pancreatitis and risk for renal insufficiency. As needed hydralazine will be available. DVT Prophylaxis: Pneumatic Compression Devices Code Status: Full Code Discharge Dispo: Admit to inpatient status Estimated Disch Date / # of Days until Disch: At least 2 midnights History of Present Illness: Hay Gutierrez is a 58 year old male with PMH including hypertension, COPD, prior CVA, alcohol abuse and dependence with relapse over the past few months and prior pancreatitis with necrosis who was admitted on 03/27/18 with nausea and abdominal pain and was found to have acute pancreatitis and acutealcohol withdrawal. History was obtained through patient interview, chart review and discussion withDr. Donahue in the ER. Patient reports that they have been feeling fine recently. He woke up this morning around 4:30 in the morning and had an insurance and coffee. After that he had terrible pain in his upper abdomen. He got sweaty and then had chills as well as nausea and dry heaves but did not have any emesis. He reports that he has been sober for about 1 year but at New Year's started drinking again. At this time he estimates he drinks 4 alcoholic beverages per day. His last drink was last night. He reports that he has chronic shortness of breath but it is stable. She also has an intermittent dry cough. He attributes this to continue to smoke despite COPD diagnosis. He has not had any chest pain. About1 week ago he had a few episodes of diarrhea but otherwise has not had any change in his bowel habits. He denies dizziness, lightheadedness, urinary changes. The patient has history of alcohol use disor jian with prior alcohol withdrawal. He also had necrotizing pancreatitis with pseudocyst in the past. In the ER she was found to have Evidence of acute pancreatitis. He was given IV fluid, antiemetics and pain medications. Past Medical History: Past Medical History: Diagnosis Date ??? Alcohol abuse ??? COPD (chronic obstructive pulmonary disease) (H) ??? 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 HTN (hypertension) ??? Pancreatitis ??? Sciatic nerve pain Past Surgical History: No surgeries. Social History: Social History Substance Use Topics ??? Smoking status: Current Every Day Smoker Packs/day: 1.00 Years: 28.00 ??? Smokeless tobacco: Not on file ??? Alcohol use 1.0 oz/week 2 Cans of beer per week Social History Social History Narrative Patient is currently drinking 4 alcoholic beverages per day. He has been drinking daily since November 19. Prior to that he had been sober for 1 year. Family History: Family History Problem Relation Age of Onset ??? CANCER Father ??? CANCER Sister Allergies: No Known Allergies Medications: Prescriptions Prior to Admission Medication Sig Dispense Refill Last Dose ??? ASPIRIN EC PO Take 325 mg by mouth daily 03/26/2018 at Unknown time ??? ATENOLOL PO Take 25 mg by mouth daily (with dinner) 03/26/2018 at 1700 ??? Cholecalciferol (VITAMIN D3 PO) Take 1,000 Units by mouth daily 03/26/2018 at 1700 ??? fluticasone - vilanterol (BREO ELLIPTA) 100-25 MCG/INH oral inhaler Inhale 1 puff into the lungsdaily 03/26/2018 at Unknown time ??? LISINOPRIL PO Take 20 mg by mouth daily (with dinner) 03/26/2018 at 1700 ??? umeclidinium bromide (INCRUSE ELLIPTA) 62.5 MCG/INH inhalation capsule Inhale 62.5 mcg into the lungs daily 03/26/2018 at Unknown time Review of Systems: A Comprehensive greater than 10 system review of systems was carried out. Pertinent positives and negatives are noted above. Otherwise negative for contributory information. Physical Exam: Blood pressure (!) 180/108, temperature 97.2 ??F (36.2 ??C), temperature source Temporal, height 1.727 m (5' 8), weight 54.9 kg (121 lb), SpO2 90 %. Wt Readings from Last 1 Encounters: 03/27/18 54.9 kg (121 lb) Exam: General: Alert, awake, no acute distress, very thin HEENT: NC/AT, eyes anicteric and without injection, EOMI, face symmetric. Dentition WNL, MMM. Cardiac: RRR, normal S1, S2. No murmurs/g/r. No LE edema Pulmonary: Normal chest rise, normal work of breathing. Lungs CTAB without crackles or wheezing Abdomen: soft, diffusely tender in the upper abdomen, non-distended. Normoactive BS. No guarding or rebound tenderness. Extremities: no deformities. Warm, well perfused. Skin: no rashes or lesions noted. Warm and Dry. Neuro: No focal deficits noted. Speech clear. Coordination and strength grossly normal. Tremulous Psych: Appropriate affect. Alert and oriented x3 Data Reviewed Today: Imaging: Results for orders placed or performed during the hospital encounter of 03/27/18 CT Abdomen Pelvis w Contrast Narrative CT ABDOMEN AND PELVIS WITH CONTRAST 03/27/2018 11:16 AM HISTORY: Abdominal pain, right-sided, history of pancreatitis with pseudocyst. CONTRAST DOSE: 61 mL Isovue-370 Radiation dose for this scan was reduced using automated exposure control, adjustment of the mA and/or kV according to patient size, or iterative reconstruction technique. FINDINGS: Emphysematous blebs are noted at the lung bases. Irregular opacity at the left lung base is probably unchanged from 11/06/2016 but not entirely included on the scan. Peripancreatic edema or fluid is noted. No discrete cyst is demonstrated. No free peritoneal fluid or air is demonstrated. There is scattered colonic diverticula without pericolonic inflammatory stranding to indicate diverticulitis. A normal appendix is noted. There is no evidence of bowel obstruction. The liver, spleen, kidneys, and adrenal glands appear within normal limits. Impression IMPRESSION: 1. Diffuse peripancreatic fluid or edema extending into the carloz hepatis. While nonspecific, this is likely related to the stated history of pancreatitis. No discrete rim-enhancing cyst is demonstrated. 2. Colonic diverticulosis without CT evidence of diverticulitis. PETER LUGO MD Labs: Recent Labs Lab 03/27/18 0859 WBC 11.3* HGB 14.6 HCT 42.0 MCV 116* PLT 216 Recent Labs Lab 03/27/18 0859 NA 137 POTASSIUM 4.2 CHLORIDE 103 CO2 27 ANIONGAP 7 GLC 188* BUN 14 CR 0.74 GFRESTIMATED >90 GFRESTBLACK >90 TRAY 9.5 MAG 1.7 PROTTOTAL 7.4 ALBUMIN 3.9 BILITOTAL 0.4 ALKPHOS 89 AST 70* ALT 25 Recent Labs Lab 03/27/18 0859 LACT 2.7* Recent Labs Lab 03/27/18 0859 LIPASE 8581* Paz Hermosillo MD Hospitalist [facility] documented in this encounter Consult Notes Lakshmi Willis RD, LD - 03/29/2018 2:46 PM CDT CLINICAL NUTRITION SERVICES - ASSESSMENT NOTE Recommendations Ordered by Registered Dietitian (RD): Oral nutrition supplements Malnutrition: % Weight Loss:None noted % Intake: suspect </= 75% for >/= 1 month (severe malnutrition) Subcutaneous Fat Loss: Severe depletion - orbital, upper arm and thoracic regions Muscle Loss: Severe depletion - temporal, hands, acromion, clavicle, pectoralis, arms (lower extremities not observed) Malnutrition Diagnosis: Severe malnutrition In Context of: Environmental or social circumstances REASON FOR ASSESSMENT Hay Gutierrez is a 58 year old male seen by the dietitian for Interdisciplinary rounds - compromised skin Hx of CVA, COPD, HTN Admitted with acute pancreatitis NUTRITION HISTORY - Information obtained from patient - Food allergies/intolerances: NKFA - Patient is on a regular diet at home. Patient reports meals TID at home, shops at [employer] or [employer] and no changes to intake or appetite [employer]. Question accuracy of diet recall given low BMI, ETOH abuse [employer] CURRENT NUTRITION ORDERS - Diet: ADAT, full liquids - Supplement: none Current Intake/Tolerance: - Per flow sheet review, no intake for meals documented. - Factors affecting nutrition intake include: ETOH withdrawal PHYSICAL FINDINGS Observed Profound muscle and fat loss, see malnutrition section below Obtained from Chart/Interdisciplinary Team Perez nutrition score: 3; total score: 18 CIWA trending Fragile skin ANTHROPOMETRICS Height: 5' 8 Weight: 54 kg Body mass index is 18.12 kg/(m^2). Weight Status: Underweight BMI <18.5 [place] body weight: 70 kg +/- 10%, 77% of IBW Weight History: Weight appears relatively stable and chronically underweight, as noted below Wt Readings from Last 10 Encounters: 03/27/18 54.1 kg (119 lb 3.2 oz) 11/09/16 55.1 kg (121 lb 6.4 oz) 09/27/16 53.4 kg (117 lb 12.8 oz) 09/26/16 53.4 kg (117 lb 12.8 oz) 09/21/16 58.1 kg (128 lb) 09/20/16 53.9 kg (118 lb 12.8 oz) 11/05/15 55.2 kg (121 lb 12.8 oz) 04/30/15 57.8 kg (127 lb 6.8 oz) 02/20/12 55.2 kg (121 lb 9.6 oz) ASSESSED NUTRITION NEEDS (PER APPROVED PRACTICE GUIDELINES, Dosing weight: 70 kg IBW): Estimated Energy Needs: 8296-3104 kcals (35-40 Kcal/Kg) Justification: underweight Estimated Protein Needs: 105-140 grams protein (1.5-2 g pro/Kg) Justification: Repletion Estimated Fluid Needs: >1 mL/Kcal Justification: maintenance LABS Labs reviewed P04 WNL (03/28); lipase 671 (03/29, trending down) Creatinine (mg/dL) Date Value 03/29/2018 0.54 (L) 03/28/2018 0.54 (L) 03/27/2018 0.74 09/26/2016 0.59 (L) 09/22/2016 0.64 (L) 09/17/2016 0.63 (L) 11/05/2015 0.8 Glucose (mg/dL) Date Value 03/29/2018 60 (L) 03/28/2018 76 03/27/2018 188 (H) 09/26/2016 72 09/22/2016 117 (H) 09/17/2016 82 Sodium (mmol/L) Date Value 03/29/2018 136 03/28/2018 139 03/27/2018 137 09/26/2016 139 09/22/2016 140 09/17/2016 137 Potassium (mmol/L) Date Value 03/29/2018 3.4 03/28/2018 4.2 03/27/2018 4.2 09/26/2016 3.8 09/23/2016 3.3 (L) 09/22/2016 2.9 (L) Magnesium (mg/dL) Date Value 03/27/2018 1.7 09/22/2016 1.7 09/20/2016 1.6 09/19/2016 1.8 09/18/2016 1.7 09/17/2016 1.7 MEDICATIONS Medications reviewed Folic acid 1 mg, thiamine 100 mg, MVI+M IVF at 75 mL/hr MALNUTRITION: % Weight Loss:None noted % Intake: suspect </= 75% for >/= 1 month (severe malnutrition) Subcutaneous Fat Loss: Severe depletion - orbital, upper arm and thoracic regions Muscle Loss: Severe depletion - temporal, hands, acromion, clavicle, pectoralis, arms (lower extremities not observed) Fluid Retention:None noted Malnutrition Diagnosis: Severe malnutrition In Context of: Environmental or social circumstances NUTRITION DIAGNOSIS: Malnutrition related to ETOH abuse as evidenced by severe fat and muscle loss, BMI of 18.1 INTERVENTIONS Recommendations / Nutrition Prescription Continue diet advancement as ordered + Diet appropriate oral nutrition supplements to increase calorie and protein intake Continue micronutrients given ETOH abuse hx Implementation Nutrition education: Not fully appropriate, reviewed rational for supplements between meals Medical food supplement: Boost 10-2 Multivitamin/Minerals: as ordered Collaboration and Referral of care: Discussed patient during interdisciplinary care rounds this morning Goals Patient to consume >/= 50% of meals TID and >/=1 high protein supplements per day MONITORING AND EVALUATION: Progress towards goals will be monitored and evaluated per protocol and Practice Guidelines Lakshmi Willis, BECKYN, LD, CNSC Pager - 3rd floor/ICU: [phone] Pager - All other floors: [phone] Pager - Weekend/holiday: [phone] Office: [phone] documented in this encounter ED Notes Viviane Engle RN - 03/27/2018 12:05 PM CDT [facility] ED Nurse Handoff Report Hay Gutierrez is a 58 year old male ED Chief complaint: Abdominal Pain . ED Diagnosis: Final diagnoses: Alcohol-induced acute pancreatitis without infection or necrosis Allergies: No Known Allergies Code Status: Full Code Activity level - Baseline/Home: Independent. Activity Level - Current: Stand with Assist. Lift room needed: No. Bariatric: No Curriculum Development Manager Needed: No Isolation: No. Infection: Not Applicable. Vital Signs: Vitals: 03/27/18 1015 03/27/18 1030 03/27/18 1045 03/27/18 1100 BP: (!) 181/106 (!) 174/110 (!) 181/110 (!) 180/108 Temp: TempSrc: SpO2: 93% 93% 93% 92% Weight: Height: Cardiac Rhythm: , Pain level: 0-10 Pain Scale: 8 Patient confused: No. Patient Falls Risk: Yes. Elimination Status: Has not voided yet; NEED UA Patient Report - Initial Complaint: pt presents with bilateral lower abdominal pain R greater than Lwith nausea. Focused Assessment: :03 March 27 Gastrointestinal Gastrointestinal - Gastrointestinal Comment: pt reports bilateral lowerabdominal pain R worse than L; hx of pancreatitis; reports nausea but no vomiting RB Tests Performed: CT Abdomen Pelvis w Contrast Final Result IMPRESSION: 1. Diffuse peripancreatic fluid or edema extending into the carloz hepatis. While nonspecific, this is likely related to the stated history of pancreatitis. No discrete rim-enhancing cyst is demonstrated. 2. Colonic diverticulosis without CT evidence of diverticulitis. PETER LUGO MD , Labs Ordered and Resulted from Time of ED Arrival Up to the Time of Departure from the ED CBC WITH PLATELETS DIFFERENTIAL - Abnormal; Notable for the following: Result Value WBC 11.3 (*) RBC Count 3.63 (*) MCV 116 (*) MCH 40.2 (*) Absolute Neutrophil 8.7 (*) All other components within normal limits BASIC METABOLIC PANEL - Abnormal; Notable for the following: Glucose 188 (*) All other components within normal limits HEPATIC PANEL - Abnormal; Notable for the following: AST 70 (*) All other components within normal limits LACTIC ACID WHOLE BLOOD - Abnormal; Notable for the following: Lactic Acid 2.7 (*) All other components within normal limits LIPASE - Abnormal; Notable for the following: Lipase 8581 (*) All other components within normal limits CRP INFLAMMATION ALCOHOL ETHYL MAGNESIUM ROUTINE UA WITH MICROSCOPIC FREE WATER Abnormal Results: see above Treatments provided: dilaudid x 2, zofran; IVF, ice chips OF NOTE PT HAS BEEN DRINKING DAILY SINCE DEC; STATES HE DOES TEND TO GO INTO WITHDRAWAL; GIVEN IV ATIVAN IN ED. CIWA 7 CURRENTLY. Family Comments: at work OBS brochure/video discussed/provided to patient: N/A ED Medications: Medications 0.9% sodium chloride BOLUS (0 mLs Intravenous Stopped 03/27/18 1031) Followed by sodium chloride 0.9% infusion (1,000 mLs Intravenous New Bag 03/27/18 1055) ondansetron (ZOFRAN) injection 4 mg (4 mg Intravenous Given 03/27/18 0909) HYDROmorphone (PF) (DILAUDID) injection 0.5 mg (0.5 mg Intravenous Given 03/27/18 1156) ketorolac (TORADOL) injection 10 mg (10 mg Intravenous Given 03/27/18 0910) HYDROmorphone (PF) (DILAUDID) injection 0.5 mg (0.5 mg Intravenous Given 03/27/18 0910) iopamidol (ISOVUE-370) solution 500 mL (61 mLs Intravenous Given 03/27/18 1107) 0.9% sodium chloride BOLUS (0 mLs Intravenous Stopped 03/27/18 1118) LORazepam (ATIVAN) injection 0.5 mg (0.5 mg Intravenous Given 03/27/18 1156) Drips infusing: Yes For the majority of the shift, the patient's behavior Green. Interventions performed were n/a. Severe Sepsis OR Septic Shock Diagnosis Present: No ED Nurse Name/Phone Number: Marisel Gallagher, 12:05 PM Pt still needs UA specimen sent lab when he next voids. RECEIVING UNIT ED HANDOFF REVIEW Above ED Nurse Handoff Report was reviewed: Yes Reviewed by: Samia Stevens on March 27, 2018 at 1:04 PM Marisel Gallagher RN - 03/27/2018 8:58 AM CDT Pt reports bilateral lower abdominal pain with nausea since 0600; hx of recurrent pancreatitis; states he drinks 4 cocktails per day for the past 2 months. ABCs intact. Last drink 12 hours ago; pt has tremors to hands Juan Donahue MD - 03/27/2018 8:49 AM CDT History Chief Complaint: Abdominal Pain FEDERICO Gutierrez is a 58 year old male with a history of stroke, COPD, hypertension, and alcohol-induced pancreatitis who presents with abdominal pain. The patient reports he had sudden onset of right-sided abdominal pain this morning after having an Ensure for breakfast. He states his abdomen feels tight and he has been nauseous and vomiting. He notes these symptoms feel similar to his previous episodes of pancreatitis, prompting him to come to the ED for evaluation. He denies fever or previous abdominal surgeries. Of note, the patient reports he drinks about 4 alcoholic beverages per day. Allergies: No known drug allergies Medications: Atenolol Breo Ellipta Lisinopril Incruse Ellipta Past Medical History: COPD CVA Hypertension Sciatica Alcohol-induced pancreatitis Past Surgical History: History reviewed. No pertinent surgical history. Family History: Cancer Social History: Smoking status: Current every day smoker Alcohol use: Yes, 4 drinks per day Marital Status: [2] Review of Systems Constitutional: Negative for fever. Gastrointestinal: Positive for abdominal pain, nausea and vomiting. All other systems reviewed and are negative. Physical Exam Patient Vitals for the past 24 hrs: BP Temp Temp src Heart Rate SpO2 Height Weight 03/27/18 1045 (!) 181/110 - - - 93 % - - 03/27/18 1030 (!) 174/110 - - - 93 % - - 03/27/18 1015 (!) 181/106 - - - 93 % - - 03/27/18 1000 (!) 178/103 - - - 94 % - - 03/27/18 0945 (!) 183/105 - - - 94 % - - 03/27/18 0930 (!) 180/104 - - - 91 % - - 03/27/18 0915 (!) 165/99 - - - 94 % - - 03/27/18 0851 (!) 182/102 97.2 ??F (36.2 ??C) Temporal 51 96 % 1.727 m (5' 8) 54.9 kg (121 lb) Physical Exam Constitutional: He is oriented to person, place, and time. He appears well-developed. HENT: Head: Normocephalic and atraumatic. Right Ear: External ear normal. Mouth/Throat: Oropharynx is clear and moist. Eyes: Conjunctivae and EOM are normal. Pupils are equal, round, and reactive to light. Neck: Normal range of motion. Neck supple. No JVD present. Cardiovascular: Normal rate, regular rhythm and normal heart sounds. Pulmonary/Chest: Effort normal and breath sounds normal. Abdominal: Soft. Bowel sounds are normal. He exhibits no distension. There is no hepatosplenomegaly.There is tenderness in the epigastric area and periumbilical area. There is no rebound. No hernia. Musculoskeletal: Normal range of motion. Lymphadenopathy: He has no cervical adenopathy. Neurological: He is alert and oriented to person, place, and time. He displays normal reflexes. No cranial nerve deficit. He exhibits normal muscle tone. Coordination normal. Skin: Skin is warm and dry. Psychiatric: He has a normal mood and affect. His behavior is normal. Judgment normal. Nursing note and vitals reviewed. Emergency Department Course Imaging: Radiographic findings were communicated with the patient who voiced understanding of the findings. CT Abdomen Pelvis w Contrast: 1. Diffuse peripancreatic fluid or edema extending into the carloz hepatis. While nonspecific, this is likely related to the stated history of pancreatitis. No discrete rim-enhancing cyst is demonstrated. 2. Colonic diverticulosis without CT evidence of diverticulitis. As read by Radiology. Laboratory: CBC: WBC 11.3 (H), o/w WNL (HGB 14.6, PLT 216) BMP: Glucose 188 (H), ow WNL (Creatinine 0.74) Hepatic Panel: AST 70 (H), o/w WNL Lactic acid: 2.7 (H) Lipase: 8581 (H) CRP inflammation: <2.9 Alcohol blood level: <0.01 Magnesium: 1.7 Interventions: 0909: NS 1L IV Bolus 0909: Zofran 4 mg IV 0910: Toradol 10 mg IV 0910: Dilaudid 0.5 mg IV 1055: NS 1L IV Bolus 1156: Dilaudid 0.5 mg IV 1156: Ativan 0.5 mg IV Emergency Department Course: Past medical records, nursing notes, and vitals reviewed. 0855: I performed an exam of the patient and obtained history, as documented above. IV inserted and blood drawn. The patient was sent for an abdominal/pelvic CT while in the emergency department, findings above. 1135: I rechecked the patient. Explained findings to the patient. 1137: I spoke to Dr. Hermosillo of the hospitalist service who accepts the patient for admission. Findings and plan explained to the Patient who consents to admission. Discussed the patient with Dr. Hermosillo, who will admit the patient to a medical bed for further monitoring, evaluation, and treatment. Impression & Plan [facility] Diagnoses: Lactate is greater than 1.9 due to dehydration, at this time there is no sign of severe sepsis or septic shock. Medical Decision Making: Patient presents with upper abdominal pain. Patient has a history of prior pancreatitis likely secondary to alcohol and known alcohol abuse. Patient does admit actively using alcohol and lab to suggestacute pancreatitis. Patient required doses of pain medication here it is too uncomfortable to go home. I other clinical concern is his lack of ability to stay sober to prevent recurrent or worsening pancreatitis. CT was performed due to history of pancreatic pseudocyst but was negative for this. Patient was admitted for pain control IV hydration and patient may go into withdrawal due to recent cessation of drinking and known alcoholism. Diagnosis: ICD-10-CM 1. Alcohol-induced acute pancreatitis without infection or necrosis K85.20 Disposition: Admitted to medicine in the care of Dr. Bay Robin 03/27/2018 [facility] I, Susy Robin, am serving as a scribe at 8:55 AM on 03/27/2018 to document services personally performed by Juan Donahue MD based on my observations and the provider's statements to me. Juan Donahue MD 03/30/182150 documented in this encounter Miscellaneous Notes Plan of Care - Debby Lynch RN - 04/01/2018 6:53 PM CDT A&O X4. Up SBA with walker. VSS on RA. Denies pain. Tele SR with peaked T waves. K 3.2, replacedwith recheck 4.3. CIWA 0, patient denies anxiety at this time. Nicotine patch to right arm. Patient discharged to home, medications sent to home pharmacy with education provided. Patient belongings were not in room, although noted in the admission profile. Patient was missing clothing and shoes. Per patient, wallet was in sweat pants but not recorded in [place] records upon admission. This chart writer checked the patient's room, previous room on the third floor, all medication rooms as well as locked patient belongings. Security and ED was called and belongings were unable to be located. Patient's reported that she did not take belongings home. This chart writer and safety and security manager told the patient oflost belongings, provided patient relations card, and apologized on behalf of [place]. Patient was very pleasant and respectful and stated he will follow up with patient relations call. Plan of Care - Loretta Meza RN - 04/01/2018 2:29 PM CDT Problem: Patient Care Overview Goal: Plan of Care/Patient Progress Review Outcome: Improving Pt VSS, denies pain. K+ 3.2/replaced. Large BM. Nicotine patch right arm. CIWA 1:0. Mild anxiety. Baseline numbness/tingling right side extremities due to previous stroke. Walked in hallway x2. SBA. Tele shows SR w/peaked Ts. Will continue with current POC. Possible this evening. Plan of Care - Sarah Silverio RN - 03/31/2018 10:54 PM CDT Problem: Patient Care Overview Goal: Plan of Care/Patient Progress Review Outcome: No Change A&O. Complains of headache, Tylenol given. Requested PRN Melatonin for sleep. Assist of 1 with urinal. Tele: SR with peaked Ts CIWA score of 6 and 4 for anxiety and tremor, Sleeping at 0400. Plan of Care - Jeanie Mason, RICHY - 03/31/2018 2:19 PM CDT Problem: Patient Care Overview Goal: Plan of Care/Patient Progress Review A&O, calls appropriately. Up with assist x1 with gait belt and walker. Ambulated in halls. Shower completed. CIWA: 2, 2. Scoring for mild tremor in hands, no ativan administered. Lung sounds: dim. Tele: SR with peaked T waves. Diet: low fat, fair appetite. PIV: SL. Pain: denies. Cont POC. Plan of Care - Víctor Marc, PT - 03/31/2018 10:49 AM CDT Problem: Patient Care Overview Goal: Plan of Care/Patient Progress Review PT: Eval complete, treatment initiated. Pt is admitted to the hospital with acute alcoholic pancreatitis, complicated with withdrawal symptoms. He functions independently at baseline, uses a SEC prn for balance. Lives with spouse and son in a rambler style home, 3 steps to enter. works, pt home alone for periods of the day. 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 [employer] Lead PT Patient plan for discharge: home Current status: A&O x 3, calm and cooperative. Mild tremor noted. Mild impaired balance, tendency for LOB backward in standing at times, compensating well with FWW. Amb x 175ft in hallway with FWW and CGA, mild LOB when turning. Tolerating OOB activity well, encouraged pt to ambulate with nursing staff 4x/day to continue building strength. Barriers to return to prior living situation: impaired balance/gait stability, home alone at times during the day Recommendations for discharge: home with increased family supervision Rationale for recommendations: Currently demonstrates impaired strength, balance, and gait stabilitybut anticipate improvement with continued medical management and PT. Entered by: Víctor Marc 03/31/2018 10:47 AM Plan of Care - Sarah Silverio RN - 03/30/2018 10:23 PM CDT Problem: Patient Care Overview Goal: Plan of Care/Patient Progress Review Outcome: No Change A&O. Complains of abdominal pain, PRN Tylenol administered. CIWA score of 3 for mild anxiety andtremor. Tele: NSR 2 assist with transfer, walker and gait belt. Incontinent of urine. Plan of Care - Nicole Henderson RN - 03/30/2018 2:32 PM CDT Problem: Patient Care Overview Goal: Plan of Care/Patient Progress Review Outcome: Improving Up with assist of two, gait belt, and walker to chair. VPM d/c'd, patient using call light appropriately, a&ox4. Washed up at bedside, teeth brushed. Scored 4 on ciwa scale. Plan of Care - Víctor Marc, PT - 03/30/2018 12:25 PM CDT Problem: Patient Care Overview Goal: Plan of Care/Patient Progress Review PT: Orders received. Per chart review, CIWA scores of 12 overnight, more recently 8, 5. Anxious, receiving ativan. Does not appear appropriate to initiate therapy today, will allow another day of medical treatment to allow for optimal tolerance with therapy assessment and intervention. Likely to continue improve with medical management. Plan of Care - Sarah Silverio RN - 03/29/2018 9:05 PM CDT Problem: Patient Care Overview Goal: Plan of Care/Patient Progress Review Outcome: No Change Pleasant and cooperative. Forgetful at times. CIWA score of 3 and 4, complains of mild anxiety, and some tremor. Complains of abdominal pain, administered PRN Oxycodone. And also requested PRN Melatonin for sleep. Complaining of increased anxiety, CIWA score 8. Administered Ativan, medication effective.Recheck CIWA score 5. Tylenol given x 1. Tele: NSR Plan of Care - Jeanie Mason, RICHY - 03/29/2018 6:20 PM CDT Problem: Patient Care Overview Goal: Plan of Care/Patient Progress Review Pt lethargic at times, disoriented to situation but reoriented easily. Anxious when awake but cooperative. CIWA score max 12, total of 3 mg of ativan. Up with Idania steady. Scattered bruising throughoutskin. Skin tear on right hand covered in mepilex. Tolerating liquids, advanced to low fat diet. O2 93% on RA. Sitter discontinued and VPM in place. Plan of Care - Cynthia Pavon, PT - 03/29/2018 12:21 PM CDT Problem: Patient Care Overview Goal: Plan of Care/Patient Progress Review PT: PT orders received. Noted pt admitted with acute alcoholic pancreatitis/abdominal pain. Pt continues to score on the CIWA scale and is not appropriate for PT intervention at this time. Will allow additional 24-48hour of medical management prior to initiating PT in order to allow the pt the best opp ortunity to participate in a skilled PT evaluation and to allow for most accurate discharge recommendations. Will reschedule as appropriate. Plan of Care - Noemí Harris RN - 03/29/2018 5:36 AM CDT Problem: Patient Care Overview Goal: Plan of Care/Patient Progress Review Outcome: Declining Patient is alert to self, assist of 2/lift. Denies chest pain and shortness of breath. Patient has been increasingly agitated, CIWA scores; 20, 2, 12, 12, 20, 19; IV ativan given as per protocol. Will continue to monitor. Plan of Care - Zayra Gonzales RN - 03/28/2018 7:58 PM CDT Problem: Patient Care Overview Goal: Plan of Care/Patient Progress Review Outcome: No Change Pain: C/o right side abdominal pain. PRN oxycodone given LOC: At start of shift was alert and cooperative. Later on became more belligerent, restless and agitated. Saying I'm not planning on staying here, I'm going to leave.This is B.S. 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 Mobility: Assist of 1-2 and cane or walker Lungs: Infrequent cough. Current smoker. 91% 2L Tele: SR GI: clear liquid diet : voiding frequently IV: PIV infusing maintenance fluid per orders Other: Continue IV fluids, oxycodone, ativan, CIWA protocol, nicotine patch per orders. Repeat lipase in morning. Continue to monitor for acute ETOH withdrawal. Plan of Care - Shelby David RN - 03/28/2018 2:23 PM CDT Problem: Patient Care Overview Goal: Plan of Care/Patient Progress Review Outcome: Improving Dx: Pancreatitis Vitals: Temp: 96.3 ??F (35.7 ??C) Temp src: Oral BP: (!) 149/93 Heart Rate: 84 Resp: 14 SpO2: 92 % O2 Device: None (Room air) Oxygen Delivery: 2 LPM Pain: abd discomfort/pain-oxycodone IR 2 tabs given twice this shift with decrease or relief of abdominal pain. Neuro: A&Ox4, forgetful, BLE and BUE numbness-chronic and baseline Cardiac: SR/ST Resp: RA. LS: dim GI/: voiding, BM 03/26 Diet: NPO this AM-diet advanced to clears-tolerating so far. Labs: Lipase 4628-improved. K+ 4.2, phos 2.7, mag 1.7 (mag drawn yesterday)-no replacement given perprotocol. Skin: Fragile, bruising. Activity: Up with assist x1 and cane or walker. PT consult ordered. IV: Left PIV with NS infusing at 150cc/hr this am-rate decreased to 75cc/hr. PLAN: repeat lipase in the AM. Continue PO oxycodone for abdominal pain. Nicotine patch on right arm. Chronic intermittent SOB and cough-COPD with out acute exac. HTN: continues on atenolol with [employer] lisinopril to resume this evening. PPX: PCD's. Plan of Care - Elif Schulz, RN - 03/28/2018 8:22 AM CDT Problem: Patient Care Overview Goal: Plan of Care/Patient Progress Review Outcome: No Change 03/28/18 0820 OTHER Plan Of Care Reviewed With patient Plan of Care Review Progress no change Tele: SR, HR: 78. Physical assessment WDL w/exceptions as noted on Adult PCS flowsheet. Refer to VS,I/O, Adult PCS for full assessment & shift details. Disposition anticipated for at least a 2 dayIP stay. NGIHA Rosales, RN Medical/Telemetry - 3 Problem: Alcohol Withdrawal Acute, Risk/Actual (Adult) Goal: Signs and Symptoms of Listed Potential Problems Will be Absent, Minimized or Managed (Alcohol Withdrawal Acute, Risk/Actual) Signs and symptoms of listed potential problems will be absent, minimized or managed by discharge/transition of care (reference Alcohol Withdrawal Acute, Risk/Actual (Adult) CPG). Outcome: No Change 03/28/18 0003 Alcohol Withdrawal Acute, Risk/Actual Problems Assessed (Alcohol Withdrawal Syndrome) all Problems Present (Alcohol W/D Syndrome) situational response Problem: Chronic Respiratory Difficulty Comorbidity Goal: Chronic Respiratory Difficulty Patient comorbidity will be monitored for signs and symptoms of Respiratory Difficulty (Chronic) condition. Problems will be absent, minimized or managed by discharge/transition of care. Outcome: No Change COPD Plan of Care - Angeles Okeefe RN - 03/27/2018 10:53 PM CDT Problem: Patient Care Overview Goal: Plan of Care/Patient Progress Review VS BP (!) 156/99 (BP Location: Left arm) Temp 96.1 ??F (35.6 ??C) (Oral) Resp 18 Ht 1.727 m (5' 8) Wt 54.1 kg (119 lb 3.2 oz) SpO2 95% BMI 18.12 kg/m2 AO, up Ax1 with cane. VSS, ex HTN. Scheduled meds given and last BP 156/99. Has PRN hydralyzine if SBP over 180. On 2L O2, LS dim. Pain 4-9/10 in right side abd. IV dilaudid x3. NPO with ice chips. Mildly nauseous, IV zofran given with relief. IVF 150/hr. Has baseline numbness/tingling in extremities as well as tremor. CIWA 7, 6, and 8. Gave 1mg ativan. Melatonin for sleep. Repeat lactic 1.5. Plan- pain control, CIWA. Provider Notification - Angeles Okeefe RN - 03/27/2018 5:35 PM CDT 1735: Paged MD-ED report indicated UA needed on patient. Sample collected but no order. Do you want to run a UA? or discard? Plan of Care - Samia Stevens RN - 03/27/2018 3:04 PM CDT Problem: Patient Care Overview Goal: Plan of Care/Patient Progress Review Outcome: No Change Admitted to floor at 1335 VS: BP 190/99, PRN hyrdralazine given, recheck 179/98 Cardio: SB Neuro: A&O x4, numbness/tingling at baseline in all extremities Resp: LS diminished GI/: DTV, BS +, LBM 03/26/18, passing flatus Skin: Bruising Activity: A1 w/ cane and gait belt Diet: NPO w/ ice chips IVs/lines: IVF @ 150 ml/hr Misc: CIWA 7, no interventions needed, will continue to monitor Plan: Continue POC Pharmacy-Admission Medication History - [address], [facility] - 03/27/2018 1:26 PM CDT Admission medication history interview status for this patient is complete. See [facility] admission navigator for allergy information, prior to admission medications and immunization status. Medication history interview source(s):Patient Medication history resources (including written lists, pill bottles, clinic record):None Primary pharmacy:[facility] Changes made to [employer] medication list: Added: ASA Deleted: none Changed: atenolol dose and lisinopril dose (called his pharmacy) Actions taken by pharmacist (provider contacted, etc):None Additional medication history information: Note: November of 2017 (info from [facility] [employer]: patient was on Creon 24,000- 76,000,120,000 : he tookthis for about 2 months but then did not understand if he was to continue it. He has a full Rx bottle at home. Nicotine patch profiled at his pharmacy but never filled Medication reconciliation/reorder completed by provider prior to medication history? No Do you take OTC medications (eg tylenol, ibuprofen, fish oil, eye/ear drops, etc)? See list For patients on insulin therapy: No Prior to Admission medications Medication Sig Last Dose Taking? Auth Provider ASPIRIN EC PO Take 325 mg by mouth daily 03/26/2018 at Unknown time Yes Unknown, Entered By History ATENOLOL PO Take 25 mg by mouth daily (with dinner) 03/26/2018 at 1700 Yes Unknown, Entered By History Cholecalciferol (VITAMIN D3 PO) Take 1,000 Units by mouth daily 03/26/2018 at 1700 Yes Unknown, Entered By History fluticasone - vilanterol (BREO ELLIPTA) 100-25 MCG/INH oral inhaler Inhale 1 puff into the lungs daily 03/26/2018 at Unknown time Yes Unknown, Entered By History LISINOPRIL PO Take 20 mg by mouth daily (with dinner) 03/26/2018 at 1700 Yes Unknown, Entered By History umeclidinium bromide (INCRUSE ELLIPTA) 62.5 MCG/INH inhalation capsule Inhale 62.5 mcg into the lungs daily 03/26/2018 at Unknown time Yes Unknown, Entered By History documented in this encounter Plan of Treatment Scheduled Orders Name Type Priority Associated Diagnoses Order S chedule EKG 12 lead EKG Routine Enter condition for order release in comments for 1 Occurrences starting 03/27/2018 documented as of this encounter Procedures Procedure Name Priority Date/Time Associated Diagnosis Comme nts POTASSIUM Timed 04/01/2018 4:55 Alcohol abuse Results for this PM CDT procedure are i n the results section. POTASSIUM Routine 04/01/2018 6:29 Alcohol-induced Results f or this AM CDT acute pancreatitis procedure are in without infection or the res ults necrosis section. POTASSIUM Timed 03/31/2018 3:24 Alcohol-induced Results f or this PM CDT acute pancreatitis procedure are in without infection or the res ults necrosis section. PHOSPHORUS Routine 03/31/2018 3:24 Alcohol-induced Results f or this PM CDT acute pancreatitis procedure are in without infection or the res ults necrosis section. MAGNESIUM Routine 03/31/2018 3:24 Alcohol-induced Results f or this PM CDT acute pancreatitis procedure are in without infection or the res ults necrosis section. BASIC METABOLIC PANEL Routine 03/31/2018 6:30 Alcohol-induced Results for this AM CDT acute pancreatitis procedure are in without infection or the res ults necrosis section. LIPASE Routine 03/29/2018 7:25 Alcohol-induced Results f or this AM CDT acute pancreatitis procedure are in without infection or the res ults necrosis section. BASIC METABOLIC PANEL Routine 03/29/2018 7:25 Alcohol-induced Results for this AM CDT acute pancreatitis procedure are in without infection or the res ults necrosis section. CBC WITH PLATELETS Routine 03/29/2018 7:25 Alcohol-induced Res ults for this AM CDT acute pancreatitis procedure are in without infection or the res ults necrosis section. PHOSPHORUS Routine 03/28/2018 7:52 Alcohol-induced Results f or this AM CDT acute pancreatitis procedure are in without infection or the res ults necrosis section. LIPASE Routine 03/28/2018 7:52 Alcohol-induced Results f or this AM CDT acute pancreatitis procedure are in without infection or the res ults necrosis section. COMPREHENSIVE Routine 03/28/2018 7:52 Alcohol-induced Results for this METABOLIC PANEL AM CDT acute pancreatitis proced ure are in without infection or the res ults necrosis section. CBC WITH PLATELETS Routine 03/28/2018 7:52 Alcohol-induced Res ults for this AM CDT acute pancreatitis procedure are in without infection or the res ults necrosis section. LACTIC ACID WHOLE Timed 03/27/2018 3:10 Alcohol-induced Resu lts for this BLOOD PM CDT acute pancreatitis procedure are in without infection or the res ults necrosis section. CT ABDOMEN PELVIS W STAT 03/27/2018 11:16 Resu lts for this CONTRAST AM CDT procedure are i n the results section. CBC WITH PLATELETS & STAT 03/27/2018 8:59 Resu lts for this DIFFERENTIAL AM CDT procedure are i n the results section. MAGNESIUM Routine 03/27/2018 8:59 Alcohol-induced Results f or this AM CDT acute pancreatitis procedure are in without infection or the res ults necrosis section. LIPASE STAT 03/27/2018 8:59 Results for this AM CDT procedure are i n the results section. LACTIC ACID WHOLE STAT 03/27/2018 8:59 Results for this BLOOD AM CDT procedure are i n the results section. HEPATIC FUNCTION PANEL STAT 03/27/2018 8:59 Re sults for this AM CDT procedure are i n the results section. CRP INFLAMMATION STAT 03/27/2018 8:59 Results for this AM CDT procedure are i n the results section. ETHYL ALCOHOL LEVEL Routine 03/27/2018 8:59 Alcohol-induced Re sults for this AM CDT acute pancreatitis procedure are in without infection or the res ults necrosis section. BASIC METABOLIC PANEL STAT 03/27/2018 8:59 Res ults for this AM CDT procedure are i n the results section. documented in this encounter Results Potassium (04/01/2018 4:55 PM CDT) athologist Signature Potassium 4.3 3.4 - 5.3 04/01/2018 [facility] mmol/L 5:35 PM CDT HOSPITAL Specimen Anatomical Collection Method Collection Time Receive d Time (Source) Location / / Volume Laterality Blood specimen 04/01/2018 4:55 PM 018 4:56 (specimen) CDT PM CDT León Lagos MD LAB - BLOOD ORDERABLES Performing Organization Address [facility] Phon e Number [facility] [address] [place] [address] [facility] [address] [place], [place] [address], [facility] [phone] (ABNORMAL) Potassium (04/01/2018 6:29 AM CDT) athologist Signature Potassium 3.2 (L) 3.4 - 5.3 04/01/2018 [place] mmol/L 6:58 AM CDT [facility] Specimen Anatomical Collection Method Collection Time Receive d Time (Source) Location / / Volume Laterality Blood specimen 04/01/2018 6:29 AM 018 6:30 (specimen) CDT AM CDT León Lagos MD LAB - BLOOD ORDERABLES Performing Organization Address [facility] Phon e Number M [facility] [address], [place] [address] [facility] [address] [place], [place] [address], [facility] [phone] Phosphorus (03/31/2018 3:24 PM CDT) athologist Signature Phosphorus 2.6 2.5 - 4.5 03/31/2018 [facility] mg/dL 8:08 PM CDT [facility] Specimen Anatomical Collection Method Collection Time Receive d Time (Source) Location / / Volume Laterality 03/31/2018 3:24 PM 8 3:25 CDT PM CDT León Lagos MD LAB - BLOOD ORDERABLES Performing Organization Address City/[facility]/ZIP Code Phon e Number [facility] [address], [place] [address] [facility] [address] [place], [place] [address], [facility] [phone] Magnesium (03/31/2018 3:24 PM CDT) P athologist Signature Magnesium 1.7 1.6 - 2.3 03/31/2018 [facility] mg/dL 8:08 PM CDT HOSPITAL Specimen Anatomical Collection Method Collection Time Receive d Time (Source) Location / / Volume Laterality 03/31/2018 3:24 PM 8 3:25 CDT PM CDT León Lagos MD LAB - BLOOD ORDERABLES Performing Organization Address City/[facility]/ZIP Code Phon e Abhilash [facility] [address], [place] [address] [facility] [address] [place], [place] [address], [facility] [phone] Potassium (03/31/2018 3:24 PM CDT) athologist Signature Potassium 3.9 3.4 - 5.3 03/31/2018 [facility] mmol/L 3:46 PM CDT HOSPITAL Specimen Anatomical Collection Method Collection Time Receive d Time (Source) Location / / Volume Laterality Blood specimen 03/31/2018 3:24 PM 018 3:25 (specimen) CDT PM CDT León Lagos MD LAB - BLOOD ORDERABLES Performing Organization Address City/State/ZIP Code Phon e Abhilash [facility] [address], [place] [address] [facility] [address] [place] [address], [facility] [phone] (ABNORMAL) Basic metabolic panel (03/31/2018 6:30 AM CDT) Analysis Performed At Patho logist Time Signature Sodium 140 133 - 144 03/31/2018 [place] mmol/L 6:55 AM CDT [facility] Potassium 3.2 (L) 3.4 - 5.3 03/31/2018 [place] mmol/L 6:55 AM [facility] Chloride 107 94 - 109 03/31/2018 [place] mmol/L 6:55 AM [facility] Carbon Dioxide 25 20 - 32 03/31/2018 [place] mmol/L 6:55 AM [facility] Anion Gap 8 3 - 14 03/31/2018 [place] mmol/L 6:55 AM [facility] Glucose 106 (H) 70 - 99 03/31/2018 [place] mg/dL 6:55 AM [facility] Urea Nitrogen 3 (L) 7 - 30 03/31/2018 [place] mg/dL 6:55 AM [facility] Creatinine 0.54 (L) 0.66 - 03/31/2018 [place] 1.25 mg/dL 6:55 AM [facility] GFR Estimate >90 >60 03/31/2018 [place] mL/min/1.7 6:[address] Comment: Non GFR Calc GFR Estimate If >90 >60 mL/min/1.7m2 03/31/2018 6:55 A M [facility] Comment: GFR Calc Calcium 8.0 (L) 8.5 - 10.1 mg/dL 03/31/2018 6:55 AM [facility] Specimen Anatomical Collection Method Collection Time Receive d Time (Source) Location / / Volume Laterality Blood specimen 03/31/2018 6:30 AM 018 6:31 (specimen) CDT AM CDT León Lagos MD LAB - BLOOD ORDERABLES Performing Organization Address City/State/ZIP Code Phon e Number M [facility] [address] [place], [place] [address] [facility] [address] [phone] (ABNORMAL) CBC with platelets (03/29/2018 7:25 AM CDT) Analysis Performed At Patho logist Time Signature WBC 8.8 4.0 - 11.0 03/29/2018 [place] 10e9/L 7:36 AM [facility] RBC Count 3.11 (L) 4.4 - 5.9 03/29/2018 [facility] 10e12/L 7:36 AM [facility] Hemoglobin 11.7 (L) 13.3 - 03/29/2018 [facility] 17.7 g/dL 7:36 AM [facility] Hematocrit 35.3 (L) 40.0 - 03/29/2018 [facility] 53.0 % 7:36 AM [facility] MCV 114 (H) 78 - 100 03/29/2018 [facility] fl 7:36 AM [facility] MCH 37.6 (H) 26.5 - 03/29/2018 [facility] 33.0 pg 7:36 AM [facility] MCHC 33.1 31.5 - 03/29/2018 [facility] 36.5 g/dL 7:36 AM [facility] RDW 13.9 10.0 - 03/29/2018 [facility] 15.0 % 7:36 AM [facility] Platelet Count 110 (L) 150 - 450 03/29/2018 [facility] 10e9/L 7:36 AM [facility] Specimen Anatomical Collection Method Collection Time Receive d Time (Source) Location / / Volume Laterality Blood specimen 03/29/2018 7:25 AM 018 7:26 (specimen) CDT AM CDT León Lagos MD LAB - BLOOD ORDERABLES Performing Organization Address City/State/ZIP Code Phon e Number [place] [address] [place] [address] [facility] [address] [place] [phone] (ABNORMAL) Basic metabolic panel (03/29/2018 7:25 AM CDT) Analysis Performed At Patho logist Time Signature Sodium 136 133 - 144 03/29/2018 [facility] mmol/L 7:49 AM [facility] Potassium 3.4 3.4 - 5.3 03/29/2018 [facility] mmol/L 7:49 AM [facility] Chloride 106 94 - 109 03/29/2018 [facility] mmol/L 7:49 AM [facility] Carbon Dioxide 21 20 - 32 03/29/2018 [facility] mmol/L 7:49 AM [facility] Anion Gap 9 3 - 14 03/29/2018 [place] mmol/L 7:49 AM [facility] Glucose 60 (L) 70 - 99 03/29/2018 [facility] mg/dL 7:49 AM [facility] Urea Nitrogen 8 7 - 30 03/29/2018 [place] mg/dL 7:49 AM [facility] Creatinine 0.54 (L) 0.66 - 03/29/2018 [place] 1.25 mg/dL 7:49 AM [facility] GFR Estimate >90 >60 03/29/2018 [place] mL/min/1.7 7:[address] Comment: Non GFR Calc GFR Estimate If >90 >60 mL/min/1.7m2 03/29/2018 7:49 A M [facility] Comment: GFR Calc Calcium 7.8 (L) 8.5 - 10.1 mg/dL 03/29/2018 7:49 AM [facility] Specimen Anatomical Collection Method Collection Time Receive d Time (Source) Location / / Volume Laterality Blood specimen 03/29/2018 7:25 AM 018 7:26 (specimen) CDT AM CDT León Lagos MD LAB - BLOOD ORDERABLES Performing Organization Address City/State/ZIP Code Phon e Number [place] [address] [place] [address] [facility] [address] [place] [phone] (ABNORMAL) Lipase (03/29/2018 7:25 AM CDT) P athologist Signature Lipase 671 (H) 73 - 393 03/29/2018 [place] U/L 7:49 AM [facility] Specimen Anatomical Collection Method Collection Time Receive d Time (Source) Location / / Volume Laterality Blood specimen 03/29/2018 7:25 AM 018 7:26 (specimen) CDT AM CDT León Lagos MD LAB - BLOOD ORDERABLES Performing Organization Address City/State/ZIP Code Phon e Number M [facility] [address] [place], [place] [address] [facility] [address] [place] [place] [address], [facility] [phone] Phosphorus (03/28/2018 7:52 AM CDT) athologist Signature Phosphorus 2.7 2.5 - 4.5 03/28/2018 [facility] mg/dL 8:26 AM CDT HOSPITAL Specimen Anatomical Collection Method Collection Time Receive d Time (Source) Location / / Volume Laterality 03/28/2018 7:52 AM 8 7:53 CDT AM CDT Paz Hermosillo MD LAB - BLOOD ORDERABLES Performing Organization Address City/[facility] e Number [facility] [address] [place], [place] [address] [place] [address] [address], [facility] [phone] (ABNORMAL) Lipase (03/28/2018 7:52 AM CDT) athologist Signature Lipase 4,628 (H) 73 - 393 03/28/2018 [place] U/L 8:34 AM [facility] Comment: Specimen run with a dilution Specimen Anatomical Collection Method Collection Time Receive d Time (Source) Location / / Volume Laterality Blood specimen 03/28/2018 7:52 AM 018 7:53 (specimen) CDT AM CDT Paz Hermosillo MD LAB - BLOOD ORDERABLES Performing Organization Address City/[facility]/ZIP Code Phon e Number [facility] [address] [place], [place] [address] [facility] [address] [address], [facility] [phone] (ABNORMAL) CBC with platelets (03/28/2018 7:52 AM CDT) Analysis Performed At Patho logist Time Signature WBC 11.0 4.0 - 11.0 03/28/2018 [place] 10e9/L 8:10 AM [facility] RBC Count 3.47 (L) 4.4 - 5.9 03/28/2018 [facility] 10e12/L 8:10 AM [facility] Hemoglobin 12.8 (L) 13.3 - 03/28/2018 [facility] 17.7 g/dL 8:10 AM [facility] Hematocrit 39.9 (L) 40.0 - 03/28/2018 [facility] 53.0 % 8:10 AM [facility] MCV 115 (H) 78 - 100 03/28/2018 [facility] fl 8:10 AM [facility] MCH 36.9 (H) 26.5 - 03/28/2018 [facility] 33.0 pg 8:10 AM [facility] MCHC 32.1 31.5 - 03/28/2018 [facility] 36.5 g/dL 8:10 AM [facility] RDW 14.2 10.0 - 03/28/2018 [facility] 15.0 % 8:10 AM [facility] Platelet Count 148 (L) 150 - 450 03/28/2018 [facility] 10e9/L 8:10 AM [facility] Specimen Anatomical Collection Method Collection Time Receive d Time (Source) Location / / Volume Laterality Blood specimen 03/28/2018 7:52 AM 018 7:53 (specimen) CDT AM CDT Paz Hermosillo MD LAB - BLOOD ORDERABLES Performing Organization Address City/State/ZIP Code Phon e Number [place] [address] [place] [address] [facility] [address] [phone] (ABNORMAL) Comprehensive metabolic panel (03/28/2018 7:52 AM CDT) Analysis Performed At Patho logist Time Signature Sodium 139 133 - 144 03/28/2018 [place] mmol/L 8:26 AM [facility] Potassium 4.2 3.4 - 5.3 03/28/2018 [place] mmol/L 8:26 AM [facility] Chloride 108 94 - 109 03/28/2018 [place] mmol/L 8:26 AM [facility] Carbon Dioxide 23 20 - 32 03/28/2018 [place] mmol/L 8:26 AM [facility] Anion Gap 8 3 - 14 03/28/2018 [place] mmol/L 8:26 AM [facility] Glucose 76 70 - 99 03/28/2018 [place] mg/dL 8:26 AM [facility] Urea Nitrogen 10 7 - 30 03/28/2018 [place] mg/dL 8:26 AM [facility] Creatinine 0.54 (L) 0.66 - 03/28/2018 [place] 1.25 mg/dL 8:26 AM [facility] GFR Estimate >90 >60 03/28/2018 [facility] mL/min/1.7 8:[address] Comment: Non GFR Calc GFR Estimate If >90 >60 mL/min/1.7m2 03/28/2018 8:26 A M [facility] Comment: GFR Calc Calcium 7.8 (L) 8.5 - 10.1 03/28/2018 8:26 [facility] Bilirubin Total 0.6 0.2 - 1.3 mg/dL 03/28/2018 8:26 AM [facility] Albumin 2.8 (L) 3.4 - 5.0 g/dL 03/28/2018 8:26 AM [facility] Protein Total 5.6 (L) 6.8 - 8.8 g/dL 03/28/2018 8:26 AM [facility] Alkaline Phosphatase 63 40 - 150 U/L 03/28/2018 8:26 AM [facility] ALT 15 0 - 70 U/L 03/28/2018 8:[address] [facility] AST 43 0 - 45 U/L 03/28/2018 8:[address] [facility] Specimen Anatomical Collection Method Collection Time Receive d Time (Source) Location / / Volume Laterality Blood specimen 03/28/2018 7:52 AM 018 7:53 (specimen) CDT [facility] Paz Hermosillo MD LAB - BLOOD ORDERABLES Performing Organization Address City/State/ZIP Code Phon e Number M [facility] [address] [place] [address] [facility] [address] [place] [place] [place] [address], [facility] [phone] Lactic acid whole blood (03/27/2018 3:10 PM CDT) P athologist Signature Lactic Acid 1.5 0.7 - 2.0 03/27/2018 [place] mmol/L 3:44 PM CDT [facility] Specimen Anatomical Collection Method Collection Time Receive d Time (Source) Location / / Volume Laterality Blood specimen 03/27/2018 3:10 PM 018 3:11 (specimen) CDT PM CDT Paz Hermosillo MD LAB - BLOOD ORDERABLES Performing Organization Address City/State/ZIP Code Phon e Number [place] [address] [place], [place] [address] [facility] [address] [place] [place] [address] [phone] CT Abdomen Pelvis w Contrast (03/27/2018 11:16 AM CDT) Anatomical Region Laterality Modality Abdomen/Pelvis, SUBRAD CT BODY, UMP CT ABDOMEN PELVIS, Computed Tomography RAD CT Specimen (Source) Anatomical Location Collection Method / Collectio n Time Received Time / Laterality Volume Impressions 03/27/2018 12:05 PM CDT IMPRESSION: 1. Diffuse peripancreatic fluid or edema extending into the carloz hepatis. While nonspecific, this is like ly related to the stated history of pancreatitis. No discrete rim -enhancing cyst is demonstrated. 2. Colonic diverticulosis without CT rosa dence of diverticulitis. PETER LUGO MD Narrative 03/27/2018 12:[address] ABDOMEN AND PELVIS WITH CONTRAST 03/27/2018 11:16 AM HISTORY: Abdominal pain, right-sided, hi story of pancreatitis with pseudocyst. CONTRAST DOSE: 61 mL Isovue-370 Radiation dose for this scan was reduced using automated exposure control, adjustment of the mA and/or kV according to patient size, or iterative reconstruction technique. FINDINGS: Emphysematous blebs are noted at the lung bases. Irregular opacity at the left lung base is probabl y unchanged from 11/06/2016 but not entirely included on the scan. P eripancreatic edema or fluid is noted. No discrete cyst is demonstrat ed. No free peritoneal fluid or air is demonstrated. There is scatter ed colonic diverticula without pericolonic inflammatory stranding to in dicate diverticulitis. A normal appendix is noted. There is no ev idence of bowel obstruction. The liver, spleen, kidneys, and adrenal glands appear within normal limits. Procedure Note Peter Lugo MD - 03/27/2018Formatt ing of this note might be different from the original. CT ABDOMEN AND PELVIS WITH CONTRAST 2017 11:16 AM HISTORY: Abdominal pain, right-sided, hi story of pancreatitis with pseudocyst. CONTRAST DOSE: 61 mL Isovue-370 Radiation dose for this scan was reduced using automated exposure control, adjustment of the mA and/or kV according to patient size, or iterative reconstruction technique. FINDINGS: Emphysematous blebs are noted at the lung bases. Irregular opacity at the left lung base is probabl y unchanged from 11/06/2016 but not entirely included on the scan. P eripancreatic edema or fluid is noted. No discrete cyst is demonstrat ed. No free peritoneal fluid or air is demonstrated. There is scatter ed colonic diverticula without pericolonic inflammatory stranding to in dicate diverticulitis. A normal appendix is noted. There is no ev idence of bowel obstruction. The liver, spleen, kidneys, and adrenal glands appear within normal limits. IMPRESSION: 1. Diffuse peripancreatic fluid or edema extending into the carloz hepatis. While nonspecific, this is like ly related to the stated history of pancreatitis. No discrete rim -enhancing cyst is demonstrated. 2. Colonic diverticulosis without CT rosa dence of diverticulitis. PETER LUGO MD Juan Donahue MD [facility] [place] ORDERABLES Magnesium (03/27/2018 8:59 AM CDT) P athologist Signature Magnesium 1.7 1.6 - 2.3 03/27/2018 [facility] mg/dL 12:10 PM CDT HOSPITAL Specimen Anatomical Collection Method Collection Time Receive d Time (Source) Location / / Volume Laterality 03/27/2018 8:59 AM 8 9:23 CDT AM CDT Juan Donahue MD LAB - BLOOD ORDERABLES Performing Organization Address City/State/ZIP Code Phon e Number [facility] [address] [place], [place] [address] [facility] [address] [place] [place] [address], [facility] [phone] Alcohol ethyl (03/27/2018 8:59 AM CDT) P athologist Signature Ethanol g/dL <0.01 <0.01 g/dL 03/27/2018 [facility] 12:10 PM [facility] Specimen Anatomical Collection Method Collection Time Receive d Time (Source) Location / / Volume Laterality 03/27/2018 8:59 AM 8 9:23 CDT AM CDT Juan Donahue MD LAB - BLOOD ORDERABLES Performing Organization Address City/[facility]/ZIP Code Phon e Number [facility] [address] [place], [place] [address] [facility] [address] [place] [place] [address], [facility] [phone] CRP inflammation (03/27/2018 8:59 AM CDT) athologist Signature CRP Inflammation <2.9 0.0 - 8.0 03/27/2018 [facility] mg/L 9:50 AM [facility] Specimen Anatomical Collection Method Collection Time Receive d Time (Source) Location / / Volume Laterality Blood specimen 03/27/2018 8:59 AM 018 9:23 (specimen) CDT AM CDT Juan Donahue MD LAB - BLOOD ORDERABLES Performing Organization Address City/State/ZIP Code Phon e Number [facility] [address] [place], [place] [address] [facility] [address] [place] [address], [facility] [phone] (ABNORMAL) Lipase (03/27/2018 8:59 AM CDT) athologist Signature Lipase 8,581 (H) 73 - 393 03/27/2018 [place] U/L 9:56 AM [facility] Comment: Specimen run with a dilution Specimen Anatomical Collection Method Collection Time Receive d Time (Source) Location / / Volume Laterality Blood specimen 03/27/2018 8:59 AM 018 9:23 (specimen) CDT AM CDT Juan Donahue MD LAB - BLOOD ORDERABLES Performing Organization Address City/[facility]/ZIP Code Phon e Number [facility] [address] [place], [place] [address] [facility] [address] [place] [place] [address], [facility] [phone] (ABNORMAL) Lactic acid whole blood (03/27/2018 8:59 AM CDT) athologist Signature Lactic Acid 2.7 (H) 0.7 - 2.0 03/27/2018 [place] mmol/L 9:27 AM [facility] Specimen Anatomical Collection Method Collection Time Receive d Time (Source) Location / / Volume Laterality Blood specimen 03/27/2018 8:59 AM 018 9:22 (specimen) CDT AM CDT Juan Donahue MD LAB - BLOOD ORDERABLES Performing Organization Address City/[facility]/ZIP Code Phon e Number [facility] [address] [place], [place] [address] [facility] [address] [place] [place] [address], [facility] [phone] (ABNORMAL) Hepatic panel (03/27/2018 8:59 AM CDT) athologist Signature Bilirubin Direct 0.2 0.0 - 0.2 03/27/2018 [place] mg/dL 9:50 AM [facility] Bilirubin Total 0.4 0.2 - 1.3 03/27/2018 [place] mg/dL 9:50 AM [facility] Albumin 3.9 3.4 - 5.0 03/27/2018 [place] g/dL 9:50 AM [facility] Protein Total 7.4 6.8 - 8.8 03/27/2018 [place] g/dL 9:50 AM [facility] Alkaline 89 40 - 150 03/27/2018 [place] Phosphatase U/L 9:50 AM [facility] ALT 25 0 - 70 U/L 03/27/2018 [facility] 9:50 AM [facility] AST 70 (H) 0 - 45 U/L 03/27/2018 [place] 9:50 AM [facility] Specimen Anatomical Collection Method Collection Time Receive d Time (Source) Location / / Volume Laterality Blood specimen 03/27/2018 8:59 AM 018 9:23 (specimen) CDT AM CDT Juan Donahue MD LAB - BLOOD ORDERABLES Performing Organization Address City/State/ZIP Code Phon e Number [place] [address] [place] [address] [facility] [address] [phone] (ABNORMAL) Basic metabolic panel (03/27/2018 8:59 AM CDT) athologist Signature Sodium 137 133 - 144 03/27/2018 [place] mmol/L 9:50 AM [facility] Potassium 4.2 3.4 - 5.3 03/27/2018 [place] mmol/L 9:50 AM [facility] Chloride 103 94 - 109 03/27/2018 [place] mmol/L 9:50 AM [facility] Carbon Dioxide 27 20 - 32 03/27/2018 [place] mmol/L 9:50 AM [facility] Anion Gap 7 3 - 14 03/27/2018 [place] mmol/L 9:50 AM [facility] Glucose 188 (H) 70 - 99 03/27/2018 [facility] mg/dL 9:50 AM [facility] Urea Nitrogen 14 7 - 30 03/27/2018 [facility] mg/dL 9:50 AM [facility] Creatinine 0.74 0.66 - 03/27/2018 [facility] 1.25 mg/dL 9:50 AM [facility] GFR Estimate >90 >60 03/27/2018 [place] mL/min/1.7 9:[address] Comment: Non GFR Calc GFR Estimate If >90 >60 mL/min/1.7m2 03/27/2018 9:50 A M [facility] Comment: GFR Calc Calcium 9.5 8.5 - 10.1 mg/dL 03/27/2018 9:50 AM [facility] Specimen Anatomical Collection Method Collection Time Receive d Time (Source) Location / / Volume Laterality Blood specimen 03/27/2018 8:59 AM 018 9:23 (specimen) CDT AM CDT Juan Donahue MD LAB - BLOOD ORDERABLES Performing Organization Address City/State/ZIP Code Phon e Number [facility] [address] [place] [address] [facility] [address] [phone] (ABNORMAL) CBC with platelets differential (03/27/2018 8:59 AM CDT) [facility] Method Time Signature WBC 11.3 (H) 4.0 - 03/27/2018 [facility] 11.0 9:30 AM [facility] 10e9/L [facility] RBC Count 3.63 (L) 4.4 - 5.9 03/27/2018 [facility] 10e12/L 9:30 AM [facility] Hemoglobin 14.6 13.3 - 03/27/2018 [facility] 17.7 g/dL 9:30 AM [facility] Hematocrit 42.0 40.0 - 03/27/2018 [facility] 53.0 % 9:30 AM [facility] MCV 116 (H) 78 - 100 03/27/2018 [facility] fl 9:30 AM [facility] MCH 40.2 (H) 26.5 - 03/27/2018 [facility] 33.0 pg 9:30 AM [facility] MCHC 34.8 31.5 - 03/27/2018 [facility] 36.5 g/dL 9:30 AM [facility] RDW 14.1 10.0 - 03/27/2018 [facility] 15.0 % 9:30 AM [facility] Platelet Count 216 150 - 450 03/27/2018 [facility] 10e9/L 9:30 AM [facility] Diff Method Automated 03/27/2018 [facility] Method 9:30 AM [facility] % Neutrophils 77.7 % 03/27/2018 [facility] 9:30 AM [facility] % Lymphocytes 11.5 % 03/27/2018 [place] 9:30 AM [facility] % Monocytes 9.4 % 03/27/2018 [facility] 9:30 AM [facility] % Eosinophils 0.5 % 03/27/2018 [facility] 9:30 AM [facility] % Basophils 0.5 % 03/27/2018 [place] 9:30 AM [facility] % Immature 0.4 % 03/27/2018 [place] Granulocytes 9:30 AM [facility] Nucleated RBCs 0 0 /100 03/27/2018 [place] 9:30 AM [facility] Absolute 8.7 (H) 1.6 - 8.3 03/27/2018 [place] Neutrophil 10e9/L 9:30 AM [facility] Absolute 1.3 0.8 - 5.3 03/27/2018 [place] Lymphocytes 10e9/L 9:30 AM [facility] Absolute 1.1 0.0 - 1.3 03/27/2018 [place] Monocytes 10e9/L 9:30 AM [facility] Absolute 0.1 0.0 - 0.7 03/27/2018 [place] Eosinophils 10e9/L 9:30 AM [facility] Absolute 0.1 0.0 - 0.2 03/27/2018 [place] Basophils 10e9/L 9:30 AM [facility] Abs Immature 0.1 0 - 0.4 03/27/2018 [place] Granulocytes 10e9/L 9:30 AM [facility] Absolute 0.0 03/27/2018 [place] Nucleated RBC 9:30 AM [facility] Specimen Anatomical Collection Method Collection Time Receive d Time (Source) Location / / Volume Laterality Blood specimen 03/27/2018 8:59 AM 018 9:23 (specimen) CDT AM T Juan Donahue MD LAB - BLOOD ORDERABLES Performing Organization Address City/State/ZIP Code Phon e Number [place] [address] [address] [place], [place] [address] [facility] [address] [phone] documented in this encounter Visit Diagnoses Diagnosis Alcohol abuse - Primary Alcohol abuse, unspecified Alcohol-induced acute pancreatitis witho ut infection or necrosis Hypokalemia Hypopotassemia Pancreatitis Acute pancreatitis Alcohol withdrawal, uncomplicated (H) documented in this encounter Administered Medications Inactive Administered Medications - up to 3 most recent administrations Medication Order MAR Action Action Date Dose Rate Site 0.9% sodium chloride BOLUS New Bag 03/27/2018 9:09 AM CDT 1,000 mLs 1000 mL/hr Intravenous, 1,000 mL, ONCE, at 1,000 mL/hr, Administer over 1 Hours, On Sun03/27/18 at 0901, For 1 dose 0.9% sodium chloride BOLUS New Bag 03/27/2018 11:07 AM CDT 56 mLs Intravenous, 1,000 mL, ONCE, On Sun03/27/18 at 1106, For 1 dose acetaminophen (TYLENOL) tablet 650 mg Given 03/31/2018 11:48 PM CDT 650 mg 650 mg, Oral, EVERY 4 HOURS PRN, mild pain, Starting on Sun03/27/18 at 1339, Alternate ibuprofen (if ordered) with acetaminophen. Maximum acetaminophen dose from all sources = 75 mg/kg/day not to exceed 4 grams/day. Given 03/30/2018 8:16 PM CDT 650 mg Given 03/30/2018 2:35 AM CDT 650 mg albuterol neb solution 2.5 mg Given 03/29/2018 8:25 PM CDT 2.5 mg 2.5 mg, Nebulization, EVERY 2 HOURS PRN, other, dyspnea, Starting on Sun03/29/18 at 1133 Given 03/29/2018 11:56 AM CDT 2.5 mg alum & mag hydroxide-simethicone (MYLANTA Given 03/30/2018 8:17 PM CDT 20 mLs ES/MAALOX ES) suspension 20 mL 20 mL, Oral, EVERY 4 HOURS PRN, indigestion, Starting on Sun03/30/18 at 2010, Shake well. aspirin EC tablet 325 mg Given 04/01/2018 10:19 AM CDT 325 mg 325 mg, Oral, DAILY, First dose on Sun03/27/18 at 1345 Given 03/31/2018 8:12 AM CDT 325 mg Given 03/30/2018 8:50 AM CDT 325 mg atenolol (TENORMIN) tablet 25 mg Given 04/01/2018 4:15 PM CDT 25 mg 25 mg, Oral, DAILY WITH SUPPER, First dose on Sun03/27/18 at 1700, Hold for SBP < 100 or HR < 60 Given 03/31/2018 4:20 PM CDT 25 mg Given 03/30/2018 4:22 PM CDT 25 mg cholecalciferol (vitamin D3) tablet Given 04/01/2018 10:19 AM CD T 1,000 Units 1,000 Units 1,000 Units, Oral, DAILY, First dose on Sun03/27/18 at 1345 Given 03/31/2018 8:12 AM CDT 1,000 Units Given 03/30/2018 8:50 AM CDT 1,000 Units fluticasone-vilanterol (BREO ELLIPTA) 100-25 Given 8:04 AM CDT 1 puff MCG/INH oral inhaler 1 puff 1 puff, Inhalation, DAILY, First dose on Sun03/27/18 at 1345, *Do not use more frequently than once daily.* Rinse mouth after use. Given 03/31/2018 7:15 AM CDT 1 puff Given 03/30/2018 8:20 AM CDT 1 puff folic acid (FOLVITE) tablet 1 mg Given 04/01/2018 10:20 AM CDT 1 mg 1 mg, Oral, DAILY, First dose on Sun03/27/18 at 1345, If patient is unable to tolerate oral folic acid, an intravenous dose of folic acid should be considered. Given 03/31/2018 8:12 AM CDT 1 mg Given 03/30/2018 8:50 AM CDT 1 mg hydrALAZINE (APRESOLINE) injection 10 mg Given 03/27/2018 2:55 PM CDT 10 mg 10 mg, Intravenous, EVERY 4 HOURS PRN, high blood pressure, give for SBP > 180, Starting on Sun03/27/18 at 1349, For ordered doses up to 40 mg, give IV Push undiluted over 1 minute. HYDROmorphone (PF) (DILAUDID) injection Given 03/27/2018 8:39 PM CDT 0.5 mg 0.3-0.5 mg 0.3-0.5 mg, Intravenous, EVERY 2 HOURS PRN, other, for pain control or improvement in physical function. Hold dose for analgesic side effects., Starting on Sun03/27/18 at 1339, Give IF unable to tolerate oral option for pain control, , Start at the lowest dose. May adjust dose by 0.1 mg every 2 hours as needed. Notify provider to assess for uncontrolled pain or analgesic side effects. Hold while on [employer] or with regular IV opioid dosing For ordered doses up to 4 mg give IV Push undiluted. Administer each 2mg over 2-5 minutes. Given 03/27/2018 6:08 PM CDT 0.5 mg Given 03/27/2018 3:51 PM CDT 0.5 mg HYDROmorphone (PF) (DILAUDID) injection 0.5 Given 03/27/2018 9:10 AM CDT 0.5 mg mg 0.5 mg, Intravenous, ONCE PRN, other, pain control or improvement in physical function. Hold dose for analgesic side effects., Starting on Sun03/27/18 at 0900, For 1 dose, Notify the provider to assess for uncontrolled pain or analgesic side effects. Hold while on IV [employer] or with regular IV opioid dosing. For ordered doses up to 4 mg give IV Push undiluted. Administer each 2mg over 2-5 minutes. HYDROmorphone (PF) (DILAUDID) injection 0.5 Given 07/2018 11:56 AM CDT 0.5 mg mg 0.5 mg, Intravenous, EVERY 15 MIN PRN, moderate to severe pain, Starting on Sun03/27/18 at 1141, For 3 doses, For ordered doses up to 4 mg give IV Push undiluted. Administer each 2mg over 2-5 minutes. iopamidol (ISOVUE-370) solution 500 mL Given 03/27/2018 11:07 AM CDT 61 mLs 500 mL, Intravenous, ONCE, On Sun03/27/18 at 1106, For 1 dose ketorolac (TORADOL) injection 10 mg Given 03/27/2018 9:10 AM CDT 10 mg 10 mg, Intravenous, ONCE, On Sun03/27/18 at 0901, For 1 dose, Do not give within 6 hours of Ibuprofen. Can cause pain on injection. Administer through a running maintenance fluid over 1 minute followed by a flush. If patient complains of pain on injection, may dilute 15-30 mg in 5 mL and push over 1 to 2 minutes. lisinopril (PRINIVIL/ZESTRIL) tablet 20 mg Given 03/31/2018 7:26 PM CDT 20 mg 20 mg, Oral, EVERY EVENING, First dose on Maida 03/28/18 at 2000, Hold for SBP < 100 Given 03/30/2018 8:16 PM CDT 20 mg Given 03/29/2018 8:00 PM CDT 20 mg LORazepam (ATIVAN) injection 0.5 mg Given 03/27/2018 11:56 AM CDT 0.5 mg 0.5 mg, Intravenous, ONCE, On Sun03/27/18 at 1140, For 1 dose, For IV PUSH: Dilute with equal volume of NS. For ordered doses up to 4 mg give IV Push. Administer each 2mg over 1-5 minutes. LORazepam (ATIVAN) injection 1-2 mg Given 03/29/2018 10:47 AM CDT 1 mg 1-2 mg, Intravenous, EVERY 30 MIN PRN, other, per CIWA-Ar score, Starting on Sun03/27/18 at 1339, Oral dosing is the preferred route of administration. Dose according to CIWA-Ar Score: For CIWA-Ar Score LESS THAN OR EQUAL TO 7: ~ NO LORazepam (ATIVAN) is to be administered and ~ repeat CIWA-Ar scale in 4 hours and PRN For CIWA-Ar Score 8-12: ~ give LORazepam (ATIVAN) 1 mg PO or IV and ~ repeat CIWA-AR scale in 1 hour For CIWA-Ar Score 13-15: ~ give LORazepam (ATIVAN) 2 mg PO or IV and ~ repeat CIWA-Ar scale in 1 hour For CIWA-Ar Score GREATER THAN OR EQUAL TO 16: ~ give LORazepam (ATIVAN) 2 mg PO or IV and ~ repeat CIWA-Ar scale in 30 minutes Doses should be withheld for nystagmus, sedation, ataxia, dysarthria or respiratory rate less than 12. If dose is being held more than once, provider must be notified. For IV PUSH: Dilute with equal volume of NS. For ordered doses up to 4 mg give IV Push. Administer each 2mg over 1-5 minutes. Given 03/29/2018 6:50 AM CDT 2 mg Given 03/29/2018 5:50 AM CDT 2 mg LORazepam (ATIVAN) tablet 1-2 mg Given 03/30/2018 2:35 AM CDT 1 mg 1-2 mg, Oral, EVERY 30 MIN PRN, other, per CIWA-Ar score, Starting on Sun03/27/18 at 1339, Oral dosing is the preferred route of administration. Dose according to CIWA-Ar score: For CIWA-Ar Score LESS THAN OR EQUAL TO 7: ~ NO LORazepam (ATIVAN) is to be administered and ~ repeat CIWA-Ar scale in 4 hours and PRN For CIWA-Ar Score 8-12: ~ give LORazepam (ATIVAN) 1 mg PO or IV and ~ repeat CIWA-Ar scale in 1 hour For CIWA-Ar Score 13-15: ~ give LORazepam (ATIVAN) 2 mg PO or IV ~ and repeat CIWA-Ar scale in 1 hour For CIWA-Ar Score GREATER THAN OR EQUAL TO 16: ~ give LORazepam (ATIVAN) 2 mg PO or IV and ~ repeat CIWA-Ar scale in 30 minutes Doses should be withheld for nystagmus, sedation, ataxia, dysarthria or respiratory rate less than 12. If dose is being held more than once, provider must be notified. Given 03/29/2018 3:53 PM CDT 1 mg Given 03/29/2018 9:05 AM CDT 1 mg melatonin tablet 1 mg Given 03/31/2018 8:57 PM CDT 1 mg 1 mg, Oral, AT BEDTIME PRN, sleep, Starting on Sun03/27/18 at 1339, Do not give unless at least 6 hours of uninterrupted sleep is expected. Given 03/30/2018 8:16 PM CDT 1 mg Given 03/29/2018 8:00 PM CDT 1 mg multivitamin, therapeutic with minerals Given 04/01/2018 10:19 A M CDT 1 tablet (THERA-VIT-M) tablet 1 tablet 1 tablet, Oral, DAILY, First dose on Sun03/27/18 at 1345, If patient is unable to tolerate oral multivitamins an intravenous dose of multivitamins should be considered. Given 03/31/2018 8:12 AM CDT 1 tablet Given 03/30/2018 8:50 AM CDT 1 tablet nicotine (NICODERM CQ) 14 MG/24HR Given 04/01/2018 10:20 AM CDT 1 patch Right Arm 24 hr patch 1 patch 1 patch, Transdermal, DAILY, First dose on Sun03/27/18 at 1345 Given 03/31/2018 8:12 AM CDT 1 patch Left Deltoid Given 03/30/2018 8:51 AM CDT 1 patch Right Deltoid nicotine Patch in Place Given 03/30/2018 9:55 PM CDT Right Arm First dose on Sun03/27/18 at 1345, Chart every shift, confirming that patch is still in place on patient (no barcode scan needed). See patch order for dose information. Positive 03/30/2018 5:45 AM CDT Left Arm Positive 03/29/2018 9:45 PM CDT Left Arm omeprazole (priLOSEC) CR capsule 20 mg Given 04/01/2018 10:19 AM CDT 20 mg 20 mg, Oral, EVERY MORNING BEFORE BREAKFAST, First dose on Sun03/27/18 at 1345 Given 03/31/2018 8:12 AM CDT 20 mg Given 03/30/2018 8:50 AM CDT 20 mg ondansetron (ZOFRAN) injection 4 mg Given 03/27/2018 9:09 AM CDT 4 mg 4 mg, Intravenous, EVERY 30 MIN PRN, nausea, vomiting, Administer over 2-5 Minutes, Starting on Sun03/27/18 at 0900, For 3 doses, May repeat in 30 minutes as needed, up to 3 doses. Irritant. For ordered doses up to 4 mg, give IV Push undiluted over 2-5 minutes. ondansetron (ZOFRAN) injection 4 mg Given 03/27/2018 3:58 PM CDT 4 mg 4 mg, Intravenous, EVERY 6 HOURS PRN, nausea, vomiting, Administer over 2-5 Minutes, Starting on Sun03/27/18 at 1339, This is Step 1 of nausea and vomiting management. If nausea not resolved in 15 minutes, go to Step 2 prochlorperazine (COMPAZINE). Irritant. For ordered doses up to 4 mg, give IV Push undiluted over 2-5 minutes. ondansetron (ZOFRAN-ODT) ODT tab 4 mg 4 mg, Oral, EVERY 6 HOURS PRN, nausea, v omiting, Starting on Sun03/27/18 at 1339, This is Step 1 of nausea and [...] with saliva; liquid not required . oxyCODONE IR (ROXICODONE) tablet 5-10 mg Given 03/30/2018 12:15 AM CDT 5 mg 5-10 mg, Oral, EVERY 3 HOURS PRN, other, pain control or improvement in physical function. Hold dose for analgesic side effects., Starting on Sun03/27/18 at 1339, Start with the lowest dose. May adjust dose by 5 mg every 3 hours as needed. Notify provider to assess for uncontrolled pain or analgesic side effects. Hold while on [employer] or with regular IV opioid dosing. Given 03/29/2018 8:01 PM CDT 10 mg Given 03/28/2018 7:22 PM CDT 10 mg potassium chloride (KLOR-CON) Packet 20-40 Given 04/01/2018 1:02 PM CDT 20 mEq mEq 20-40 mEq, Oral or Feeding Tube, EVERY 2 HOURS PRN, potassium supplementation, Starting on Sun03/27/18 at 1339, Use if unable to tolerate tablets. If [...] ounces of cold water or juice. Given 04/01/2018 10:20 AM CDT 40 mEq Given 03/31/2018 11:44 AM CDT 20 mEq prochlorperazine (COMPAZINE) injection 1 0 mg 10 mg, Intravenous, EVERY 6 HOURS PRN, nausea, vomitin g, Administer over 1-2 Minutes, Starting on Sun03/27/18 at 1339, This is Step 2 of nausea and vomiting management. Give if nausea not resolved 15 minutes aft er giving ondansetron (ZOFRAN). If nausea not resolved in 15 minutes, go to Step 3 metoclopramide (REGLAN), if ordered. For ordered doses up to 10 mg, give IV Push undiluted. Each 5mg over 1 minute. prochlorperazine (COMPAZINE) Suppository 25 mg 25 mg, Rectal, EVERY 12 HOURS PRN, nausea, vomiting, S tarting on Sun03/27/18 at 1339, This is Step 2 of nausea and vomit ing management. Give if nausea not resolved 15 minutes after giving ondansetron (ZOF RAN). If nausea not resolved in 15 minutes, go to Step 3 metoclopramide (REGLAN), if ordered. prochlorperazine (COMPAZINE) tablet 10 m g 10 mg, Oral, EVERY 6 HOURS PRN, vomiting , Starting on Sun03/27/18 at 1339, This is Step 2 of nausea and vomiting management . Give if nausea not resolved 15 minutes after giving ondansetron (ZOFRAN). If na usea not resolved in 15 minutes, go to Step 3 metoclopramide (REGLAN), if ordered. senna-docusate (SENOKOT-S;PERICOLACE) 8. 6-50 MG per tablet 1 tablet 1 tablet, Oral, 2 TIMES DAILY PRN, const ipation, Starting on Sun03/27/18 at 1339, If no bowel movement in 24 hours, increase to 2 tablets P O. Hold for loose stools. This is the first step of a three step constipation tr eatment. senna-docusate (SENOKOT-S;PERICOLACE) Given 03/31/2018 7:26 PM C DT 2 tablets 8.6-50 MG per tablet 2 tablet 2 tablet, Oral, 2 TIMES DAILY PRN, constipation, Starting on Sun03/27/18 at 1339, Hold for loose stools. This is the first step of a three step constipation treatment. sodium chloride 0.9% Rate/Dose Verify 03/27/2018 1:39 PM CDT 1,000 mLs 125 mL/hr infusion at 125 mL/hr, Intravenous, CONTINUOUS, Administer after the bolus., Starting on Sun03/27/18 at 0901, Until Sun03/27/18 at 1339 New Bag 03/27/2018 10:55 AM CDT 1,000 mLs 125 mL/hr sodium chloride 0.9% infusion New Bag 03/30/2018 9:54 PM CDT 75 mL/hr at 75 mL/hr, Intravenous, CONTINUOUS, Starting on Sun03/27/18 at 1345, Until Sun03/31/18 at 1427 New Bag 03/30/2018 8:25 AM CDT 75 mL/hr New Bag 03/29/2018 7:27 PM CDT 75 mL/hr thiamine tablet 100 mg Given 03/31/2018 8:12 AM CDT 100 mg 100 mg, Oral, DAILY, First dose on Sun03/27/18 at 1345, For 5 days, Administer first dose as soon as order set is initiated unless given in ED. If patient is unable to tolerate oral thiamine, an intravenous dose of thiamine should be considered. Given 03/30/2018 8:50 AM CDT 100 mg Given 03/29/2018 9:02 AM CDT 100 mg umeclidinium (INCRUSE ELLIPTA) 62.5 MCG/INH Given 03/19 8:04 AM CDT 62.5 mcg oral inhaler 62.5 mcg 62.5 mcg, Inhalation, DAILY, First dose on Sun03/27/18 at 1345 Given 03/31/2018 7:14 AM CDT 62.5 mcg Given 03/30/2018 8:21 AM CDT 62.5 mcg documented in this encounter Active and Recently Administered Medications Times are shown in CDT. Scheduled Medication Order 03/30/2018 03/31/2018 04/01/2018 aspirin EC tablet 325 mg 0850 (Given - Provider: Elijah Pepper LPN) 0812 (Given - Provider: Elijah Pepper LPN) 1019 (Given - Provider: Loretta Meza RN) 325 mg, Oral, DAILY, First dose on Sun03/27/18 at 1345 atenolol (TENORMIN) tablet 25 mg 1622 (Given - Provider: Deepthi Henderson RN) 1620 (Given - Provider: Jeanie Mason RN) 1615 (Given - Provider: Debby Lynch RN) 25 mg, Oral, DAILY WITH SUPPER, First do se on Sun03/27/18 at 1700, Hold for SBP < 100 or HR < 60 cholecalciferol (vitamin D3) tablet 1,000 Units 0850 ( Given - Provider: Elijah Pepper LPN) 0812 (Given - Provider: Elijah Pepper LPN) 1019 (Given - Provider: Loretta Meza, RN) 1,000 Units, Oral, DAILY, First dose on Sun03/27/18 at 1345 fluticasone-vilanterol (BREO ELLIPTA) 100-25 MCG/INH o ral inhaler 1 puff 0820 (Given - Provider: rUi Thibodeaux, RT) 0715 (Given - Provider: Viviane Monaco, RT) 0804 (Given - Provider: Nighat Jarvis, RT) 1 puff, Inhalation, DAILY, First dose on Sun03/27/18 at 1345, *Do not use more frequently than once daily.* Rinse mouth after use. folic acid (FOLVITE) tablet 1 mg 0850 (Given - Provider: Dima Pepper LPN) 0812 (Given - Provider: Elijah Pepper LPN) 1020 (Given - Provider: Loretta Meza, RICHY) 1 mg, Oral, DAILY, First dose on 03/27 at 1345, If patient is unable to tolerate oral folic acid, an intravenous dose of folic acid should be considered. lisinopril (PRINIVIL/ZESTRIL) tablet 20 mg 2015 (Given - Provider: Sarah Silverio RN) 192 (Given - Provider: Logan Avina) 20 mg, Oral, EVERY EVENING, First dose o n Maida 03/28/18 at 2000, Hold for SBP < 100 multivitamin, therapeutic with minerals (THERA-VIT-M) tablet 1 tablet 0850 (Given - Provider: Elijah Pepper LPN) 0812 (Given - Provider: Elijah Pepper LPN) 1019 (Given - Provider: Loretta Meza, RN) 1 tablet, Oral, DAILY, First dose on Sun03/27/18 at 1345, If patient is unable to tolerate oral multivitamins an intravenous dose of multivitamins should be considered. nicotine (NICODERM CQ) 14 MG/24HR 24 hr patch 1 patch 0851 (Given - Provider: Elijah Pepper LPN) 0812 (Given - Provider: Elijah Pepper LPN) 1020 (Given - Provider: Loretta Meza, RICHY) 1 patch, Transdermal, DAILY, First dose on Sun03/27/18 at [address] 0545 (Positive - Provider: Annabella Silverio RN)1525 (Patch in Place - Provider: Elijah Pepper LPN)2155 (Given - Provider: Sarah Silverio RN) 0525 (Patch in Place - Provider: Mirlande ayala LPN)1249 (Patch in Place - Provider: Elijah Pepper LPN)2045 (Patch in Place - Provider: Sarah Silverio RN) 0535 (Patch in Place - Provider: Mirlande ayala LPN)1327 (Patch in Place - Provider: Loretta Meza RN) First dose on Sun03/27/18 at 1345, Chart every shift, confirming that patch is still in place on patient (no barcode scan needed). See patch order for dose information. nicotine patch REMOVAL 0850 (Patch/Med Removed - Provider: Clint Pepper LPN) 0809 (Patch/Med Removed - Provider: Elijah Pepper LPN) 1020 (Patch/Med Removed - Provider: Loretta Meza RN) First dose on Sun03/28/18 at 0900, Remov e patch when new patch is applied or patch is discontinued. omeprazole (priLOSEC) CR capsule 20 mg 0850 (Given - Provide r: Elijah Pepper LPN) 0812 (Given - Provider: Elijah Pepper LPN) 1019 (Given - Provider: Loretta Meza RN) 20 mg, Oral, EVERY MORNING BEFORE BREAKFAST, First dose on Sun at 1345 thiamine tablet 100 mg (COMPLETED) 0850 (Given - Provider: Clint Pepper LPN) 0812 (Given - Provider: Elijah Pepper LPN) 100 mg, Oral, DAILY, First dose on Sun at 1345, For 5 days, Administer first dose as soon as order set is initiated unless given in ED. If patient is unable to tolerate oral thiamine, an intravenous dose of thiamine should be considered. umeclidinium (INCRUSE ELLIPTA) 62.5 MCG/INH oral inhal er 62.5 mcg 0821 (Given - Provider: Uri Thibodeaux, RT) 0714 (Given - Provider: Viviane Monaco, RT) 0804 (Given - Provider: Nighat Jarvis, RT) 62.5 mcg, Inhalation, DAILY, First dose on Sun03/27/18 at 1345 Continuous Medication Order 03/30/2018 03/31/2018 04/01/2018 sodium chloride 0.9% infusion (CANCELED) 0825 (New Bag - Provider: Elijah Pepper LPN)2154 (New Bag - Provider: Sarah Silverio, RICHY) 1200 (Stopped - Provider: Jeanie Mason RN) at 75 mL/hr, Intravenous, CONTINUOUS, St arting 03/27/18 at 1345, Until 03/31/18 at 1427 PRN Medication Order 03/30/2018 03/31/2018 04/01/2018 acetaminophen (TYLENOL) tablet 650 mg 0235 (Given - Pr ovider: Sarah Silverio RN)2015 (Given - Provider: Sarah Silverio, RICHY) 2348 (Given - Provider: Mirlande Price LPN) 650 mg, Oral, EVERY 4 HOURS PRN, mild pa in, Starting Sun03/27/18 at 1339, Alternate ibuprofen (if ordered) with acetaminophen. Maximum acetaminophen dose from all sources = 75 mg/kg/day not to exceed 4 grams/day. albuterol neb solution 2.5 mg 2.5 mg, Nebulization, EVERY 2 HOURS PRN, other, dyspnea, Starting 03/29/18 at 1133 alum & mag hydroxide-simethicone (MYLANTA ES/MAALOX ES ) suspension 20 mL 2016 (Given - Provider: Sarah Silverio, RICHY) 20 mL, Oral, EVERY 4 HOURS PRN, indigest ion, Starting 03/30/18 at 2010, Shake well. bisacodyl (DULCOLAX) Suppository 10 mg 10 mg, Rectal, DAILY PRN, constipation, Starting 03/27/18 at 1339, Hold for loose stools. This is the third step of a three step constipation treatment. hydrALAZINE (APRESOLINE) injection 10 mg 10 mg, Intravenous, EVERY 4 HOURS PRN, h igh blood pressure, give for SBP > 180, Starting Sun03/27/18 at 1349, For ordered doses up to 40 mg, give IV Push undiluted over 1 minute. HYDROmorphone (PF) (DILAUDID) injection 0.3-0.5 mg 0.3-0.5 mg, Intravenous, EVERY 2 HOURS P RN, Starting Sun03/27/18 at 1339, Until Sun04/01/18 at 2053, other, for pain control or improvement in physical function. Hold dose for analgesic side effects., Gi ve IF unable to tolerate oral option for pain control, , Start at the lowest dose. May adjust dose by 0.1 mg every 2 hours as needed. Notify provider to assess for uncontrolled pain or analgesic side ef fects. Hold while on [employer] or with regular IV opioid dosing For ordered doses up to 4 mg give IV Push undiluted. Administer each 2mg over 2-5 minutes. LORazepam (ATIVAN) injection 1-2 mg(Linked Group 1) 02 35 (See Alternative - Provider: Sarah Silverio, RN) 1-2 mg, Intravenous, EVERY 30 MIN PRN, o ther, per CIWA-Ar score, Starting Sun03/27/18 at 1339, Oral dosing is the preferred route of administration. Dose according to CIWA-Ar Score: For CIWA-Ar Score LES S THAN OR EQUAL TO 7: ~ NO LORazepam (AT ROYER) is to be administered and ~ repeat CIWA-Ar scale in 4 hours and PRN For CIWA-Ar Score 8-12: ~ give LORazepam (ATIVAN) 1 mg PO or IV and ~ repeat CIWA-AR sca le in 1 hour For CIWA-Ar Score 13-15: ~ give LORazepam (ATIVAN) 2 mg PO or IV and ~ repeat CIWA-Ar scale in 1 hour For CIWA-Ar Score GREATER THAN OR EQUAL TO 16: ~ give LORazepam (ATIVAN) 2 mg PO or IV and ~ repeat CIWA-Ar scale in 30 minutes Doses should be withheld for nystagmus, sedation, ataxia, dysarthria or respiratory rate less than 12. If dose is being held more than once, provider must be not ified. For IV PUSH: Dilute with equal vo lume of NS. For ordered doses up to 4 mg give IV Push. Administer each 2mg over 1-5 minutes. LORazepam (ATIVAN) tablet 1-2 mg(Linked Group 1) 0235 (Given - Provider: Sarah iSlverio, RN) 1-2 mg, Oral, EVERY 30 MIN PRN, other, p er CIWA-Ar score, Starting Sun03/27/18 at 1339, Oral dosing is the preferred route of administration. Dose according to CIWA-Ar score: For CIWA-Ar Score LESS THAN OR EQUAL TO 7: ~ NO LORazepam (ATIVAN) i s to be administered and ~ repeat CIWA- Ar scale in 4 hours and PRN For CIWA-Ar Score 8-12: ~ give LORazepam (ATIVAN) 1 mg PO or IV and ~ repeat CIWA-Ar scale in 1 hour For CIWA-Ar Score 13-15: ~ give LO Razepam (ATIVAN) 2 mg PO or IV ~ and repeat CIWA-Ar scale in 1 hour For CIWA-Ar Score GREATER THAN OR EQUAL TO 16: ~ give LORazepam (ATIVAN) 2 mg PO or IV and ~ r epeat CIWA-Ar scale in 30 minutes Doses should be withheld for nystagmus, sedation, ataxia, dysarthria or respiratory rate less than 12. If dose is being held more than once, provider must be notified. magnesium sulfate 4 g in 100 mL sterile water (premade) 4 g, Intravenous, Administer over 120 Mi nutes, EVERY 4 HOURS PRN, Starting Sun03/27/18 at 1339, magnesium supplementation, For serum Mg++ less than 1.6 mg/dL Give 4 g and recheck magnesium level 2 hours after dose, and next AM. melatonin tablet 1 mg 2015 (Given - Provider: Sarah hope RN) 2056 (Given - Provider: Sarah Silverio, RN) 1 mg, Oral, AT BEDTIME PRN, sleep, Start ing Sun03/27/18 at 1339, Do not give unless at least 6 hours of uninterrupted sleep is expected. naloxone (NARCAN) injection 0.1-0.4 mg 0.1-0.4 mg, Intravenous, EVERY 2 MIN PRN , opioid reversal, Starting Sun03/27/18 at 1339, For respiratory rate LESS than or EQUAL to 8. Partial reversal dose: 0.1 mg titrated q 2 minutes for Analgesia Brannon e Effects Monitoring Sedation Level of 3 (frequently drowsy, arousable, drifts to sleep during conversation).Full reversal dose: 0.4 mg bolus for Analgesia Side Effects Monitoring Sedation Level of 4 (s omnolent, minimal or no response to stim ulation). For ordered doses up to 2mg give IVP. Give each 0.4mg over 15 seconds in emergency situations. For non- emergent situations further dilute in 9mL of NS to facilitate titration of response. ondansetron (ZOFRAN) injection 4 mg(Linked Group 2) 4 mg, Intravenous, EVERY 6 HOURS PRN, na usea, vomiting, Administer over 2-5 Minutes, Starting Sun03/27/18 at 1339, This is Step 1 of nausea and vomiting management. If nausea not resolved in 15 minutes, go to Step 2 prochlorperazine (COMPAZINE ). Irritant. For ordered doses up to 4 mg, give IV Push undiluted over 2-5 minutes. ondansetron (ZOFRAN-ODT) ODT tab 4 mg(Linked Group 2) 4 mg, Oral, EVERY 6 HOURS PRN, nausea, v omiting, Starting Sun03/27/18 at 1339, This is Step 1 of nausea and vomiting management. If nausea not resolved in 15 minutes, go to Step 2 prochlorperazine (KASSY ZINE). Do not push through foil backing. Peel back foil and gently remove. Place on tongue immediately. Administration with liquid unnecessary With dry hands, peel back foil backing and gently remove ta blet; do not push oral disintegrating ta blet through foil backing; administer immediately on tongue and oral disintegrating tablet dissolves in seconds; then swallow with saliva; liquid not required. oxyCODONE IR (ROXICODONE) tablet 5-10 mg 0015 (Given - Provider: Sarah Silverio RN) 5-10 mg, Oral, EVERY 3 HOURS PRN, other, pain control or improvement in physical function. Hold dose for analgesic side effects., Starting Sun03/27/18 at 1339, Start with the lowest dose. May adjust dose by 5 mg every 3 hours as needed. Notify provider to assess for uncontrolled pain or analgesic side effects. Hold while on [employer] or with regular IV opioid dosing. polyethylene glycol (MIRALAX/GLYCOLAX) Packet 17 g 17 g, Oral, DAILY PRN, constipation, Sta rting Sun03/27/18 at 1339, Give in 8oz of water, juice, or soda. Hold for loose stools. This is the second step of a three step constipation treatment. 1 Packet = 17 grams. Mixed prescribed dose in 8 oun errol of water. Follow with 8 oz. of water. potassium chloride (KLOR-CON) Packet 20-40 mEq 0946 (Given - Provider: Elijah Pepper LPN)1144 (Given - Provider: Jeanie Mason, RN) 1020 (Given - Provider: Loretta Meza, RN)1302 (Given - Provider: Loretta Meza, RICHY) 20-40 mEq, Oral or Feeding Tube, EVERY 2 HOURS PRN, Starting Sun03/27/18 at 1339, potassium supplementation, Use if unable to tolerate tablets. If Serum K+ 3.0- 3.3, dose = 60 mEq po total dose (40 mEq x1 followed in 2 hours by 20 mEq x1). Rech troy K+ level 4 hours after dose and the next AM. If Serum K+ 2.5-2.9, dose = 80 mEq po total dose (40 mEq Q2H x2). Recheck K+ level 4 hours after dose and the nex t AM. If Serum K+ less than 2.5, See IV order. Dissolve packet contents in 4-8 ounces of cold water or juice. potassium chloride 10 mEq in 100 mL intermittent infusion wi th 10 mg lidocaine 10 mEq, Intravenous, Administer over 1 H ours, EVERY 1 HOUR PRN, Starting Sun03/27/18 at 1339, potassium supplementation, Infuse via PERIPHERAL LINE. Use potassium with lidocaine for pain with peripheral administration. If Serum K+ 3.0-3.3, dos e = 10 mEq/hr x4 doses (40 mEq IV total dose). Recheck K+ level 2 hours after dose and the next AM. If Serum K+ less than 3.0, dose = 10 mEq/hr x6 doses (60 mEq I V total dose). Recheck K+ level 2 hours after dose and the next AM. potassium chloride 10 mEq in 100 mL ster ile water intermittent infusion (premix) 10 mEq, Intravenous, Administer over 60 Minutes, EVERY 1 HOUR PRN, Starting Sun03/27/18 at 1339, potassium supplementation, Infuse via PERIPHERAL LINE or CENTRAL LINE. Use for central line replacement if patient weight less than 65 kg, if kulwant ent is on TPN with high potassium content or if unit does not stock 20 mEq bags. If Serum K+ 3.0-3.3, dose = 10 mEq/hr x4 doses (40 mEq IV total dose). Recheck K+ level 2 hours after dose and the next A M. If Serum K+ less than 3.0, dose = 10 mEq/hr x6 doses (60 mEq IV total dose). Recheck K+ level 2 hours after dose and the next AM. potassium chloride SA (K-DUR/KLOR-CON M) CR tablet 20-40 mEq 0811 (Canceled Entry - Provider: Elijah Pepper LPN - Comment: Pot. 3.2. Pt unable to take pill. Will waste pills and administer packet.)1000 (Canceled Entry - Provider: Elijah Pepper LPN) 20-40 mEq, Oral, EVERY 2 HOURS PRN, Star ting Sun03/27/18 at 1339, potassium supplementation, Use if able to take [...] Administer over 4 Hours, DAILY PRN, Starting Sun03/27/18 at 1339, phosphorous supplementation, For serum phosphorus level 2-2.4 Do not infuse Phosphorus in the same line as TPN. Giv e 15 mmol and recheck phosphorus level n ext AM. Each mmol of phosphate provides 1.47 mEq of Potassium. Multiply the patient's phosphate dose by 1.47 to determine the amount of potassium in this dose. potassium phosphate 20 mmol in D5W 250 mL intermittent infusion 20 mmol, Intravenous, Administer over 4 Hours, EVERY 6 HOURS PRN, Starting Sun03/27/18 at 1339, phosphorous supplementation, For serum phosphorus level 1.1-1.9 For CENTRAL Line ONLY Do not infuse Phospho zoraida in the [...] 4 Hours, EVERY 6 HOURS PRN, Starting 03/27/18 at 1339, phosphorous supplementation, For serum phosphorus level 1.1-1.9 For Peripheral Line Do not infuse Phosphoru s in the same line as TPN. Give [...] 6 Hours, EVERY 8 HOURS PRN, Starting Sun03/27/18 at 1339, phosphorous supplementation, For serum phosphorus level less than 1.1 Do not infuse Phosphorus in the same line as TPN. Give 25 mmol and recheck ph osphorus level 2 hours after last dose and next AM. Each mmol of phosphate provides 1.47 mEq of Potassium. Multiply the patient's phosphate dose by 1.47 to determine the amount of potassium in this dose. prochlorperazine (COMPAZINE) injection 10 mg(Linked Group 3) 10 mg, Intravenous, EVERY 6 HOURS PRN, n ausea, vomiting, Administer over 1-2 Minutes, Starting Sun03/27/18 at 1339, This is Step 2 of nausea and vomiting management. Give if nausea not resolved 15 minute s after giving ondansetron (ZOFRAN). If nausea not resolved in 15 minutes, go to Step 3 metoclopramide (REGLAN), if ordered. For ordered doses up to 10 mg, give IV Push undiluted. Each 5mg over 1 minute. prochlorperazine (COMPAZINE) Suppository 25 mg(Linked Group 3) 25 mg, Rectal, EVERY 12 HOURS PRN, nause a, vomiting, Starting Sun03/27/18 at 1339, This is Step 2 of nausea and vomiting management. Give if nausea not resolved 15 minutes after giving ondansetron (ZOFRA N). If nausea not resolved in 15 minutes , go to Step 3 metoclopramide (REGLAN), if ordered. prochlorperazine (COMPAZINE) tablet 10 mg(Linked Group 3) 10 mg, Oral, EVERY 6 HOURS PRN, vomiting , Starting 03/27/18 at 1339, This is Step 2 of nausea and vomiting management. Give if nausea not resolved 15 minutes after giving ondansetron (ZOFRAN). If naus ea not resolved in 15 minutes, go to Caleb p 3 metoclopramide (REGLAN), if ordered. senna-docusate (SENOKOT-S;PERICOLACE) 8. 6-50 MG per tablet 1 tablet(Linked Group 4) 1925 (See Alternative - Provider: Lucrecia Avina) 1 tablet, Oral, 2 TIMES DAILY PRN, const ipation, Starting Sun03/27/18 at 1339, If no bowel movement in 24 hours, increase to 2 tablets PO. Hold for loose stools. This is the first step of a three step constipation treatment. senna-docusate (SENOKOT-S;PERICOLACE) 8. 6-50 MG per tablet 2 tablet(Linked Group 4) 1925 (Given - Provider: Logan Avina) 2 tablet, Oral, 2 TIMES DAILY PRN, const ipation, Starting 03/27/18 at 1339, Hold for loose stools. This is the first step of a three step constipation treatment. Linked Groups Order Group 1: LORazepam (ATIVAN) tablet 1-2 mgJump to med 1-2 mg, Oral, EVERY 30 MIN PRN, other, p er CIWA-Ar score, Starting Sun03/27/18 at 1339
Oral dosing is the preferred route of administration. Dose according to CIWA-Ar score: &a mp;nbsp;For CIWA-Ar Score LESS THAN OR E QUAL TO 7: ~ NO LORazepam (ATIVAN) is to be administered and ~ repeat CIWA-Ar scale in 4 hours and PRN For CIWA-Ar Score 8-12 : ~ give LORazepam (ATIVAN) 1 mg P O or IV and ~ repeat CIWA-Ar scale in 1 hour For CIWA-Ar Score 13-15: ~ give LORazepam (ATIVAN) 2 mg PO or IV ~ and repeat CIWA-Ar scale in 1 hour&nbs p; For CIWA-Ar Score GREATER THAN OR EQUAL TO 16: ~ give LORazepam (ATIVAN) 2 mg PO or IV and ~ repeat CIWA-Ar scale in 30 minute s Doses should be withheld fo r nystagmus, sedation, ataxia, dysarthria or respiratory rate less than 12. If dose is being held more than once, provider must be notified.
Or LORazepam (ATIVAN) injection 1-2 mgJump to med 1-2 mg, Intravenous, EVERY 30 MIN PRN, o ther, per CIWA-Ar score, Starting 03/27/18 at 1339
Oral dosing is the preferred route of administration. Dose according to CIWA-Ar S core: For CIWA-Ar Score LESS THAN OR EQUAL TO 7: ~ NO LORazepam (ATIVAN) is to be administered and ~ repeat CIWA-Ar scale in 4 hours and PRN & nbsp;For CIWA-Ar Score 8-12: ~ give LORazepam (ATIVAN) 1 mg PO or IV and ~ repeat CIWA-AR scale in 1 hour For CIWA-Ar Score 13- 15: ~ give LORazepam (ATIVAN ) 2 mg PO or IV and ~ repeat CIWA- Ar scale in 1 hour For CIWA- Ar Score GREATER THAN OR EQUAL TO 16: ~ give LORazepam (ATIVAN) 2 mg PO or IV and ~ repeat CI WA-Ar scale in 30 minutes Dos es should be withheld for nystagmus, sedation, ataxia, dysarthria or respiratory rate less than 12. If dose is being held more than once, provider must be notified. For IV PUSH: Dilute with equal volume of NS. For ordered doses up to 4 mg give IV Push. Administer each 2mg over 1-5 minutes.
Group 2: ondansetron (ZOFRAN-ODT) ODT tab 4 mgJump to med 4 mg, Oral, EVERY 6 HOURS PRN, nausea, v omiting, Starting 03/27/18 at 1339
This is Step 1 of nausea and vomiting management. If nausea not resolved in 15 minutes, go to Caleb p 2 prochlorperazine (COMPAZINE). Do not push through foil backing. Peel back foil and gently remove. Place on tongue immediately. Administration with liquid unnecessary With dry hands, peel ba ck foil backing and gently remove tablet ; do not push oral disintegrating tablet through foil backing; administer immediately on tongue and oral disintegrating tablet dissolves in seconds; then swallow with saliva; liquid not required.
Or ondansetron (ZOFRAN) injection 4 mgJump to med 4 mg, Intravenous, EVERY 6 HOURS PRN, na usea, vomiting, Administer over 2-5 Minutes, Starting 03/27/18 at 1339
This is Step 1 of nausea and vomiting management. If nausea n ot resolved in 15 minutes, go to Step 2 prochlorperazine (COMPAZINE). Irritant. For ordered doses up to 4 mg, give IV Push undiluted over 2-5 minutes.
Group 3: prochlorperazine (COMPAZINE) injection 10 mgJump to med 10 mg, Intravenous, EVERY 6 HOURS PRN, n ausea, vomiting, Administer over 1-2 Minutes, Starting 03/27/18 at 1339
This is Step 2 of nausea and vomiting management. Give if nausea not resolved 1 5 minutes after giving ondansetron (ZOFR AN). If nausea not resolved in 15 minutes, go to Step 3 metoclopramide (REGLAN), if ordered. For ordered doses up to 10 mg, give IV Push undiluted. Each 5mg over 1 minute.
Or prochlorperazine (COMPAZINE) tablet 10 mgJump to med 10 mg, Oral, EVERY 6 HOURS PRN, vomiting , Starting 03/27/18 at 1339
This is Step 2 of nausea and vomiting management. Give if nausea not resolved 15 minutes after giving ondansetron (ZOFRAN). If nausea not resolved in 15 minut es, go to Step 3 metoclopramide (REGLAN), if ordered.
Or prochlorperazine (COMPAZINE) Suppository 25 mgJump to med 25 mg, Rectal, EVERY 12 HOURS PRN, nause a, vomiting, Starting 03/27/18 at 1339
This is Step 2 of nausea and vomiting management. Give if nausea not resolved 15 minutes after giving ondansetro n (ZOFRAN). If nausea not resolved in 15 minutes, go to Step 3 metoclopramide (REGLAN), if ordered.
Group 4: senna-docusate (SENOKOT-S;PERICOLACE) 8.6-50 MG per tablet 1 tabletJump to med 1 tablet, Oral, 2 TIMES DAILY PRN, const ipation, Starting 03/27/18 at 1339
If no bowel movement in 24 hours, increase to 2 tablets PO. Hold for loose stools. This is the first step of a three step constipation treatment.
Or senna-docusate (SENOKOT-S;PERICOLACE) 8.6-50 MG per tablet 2 tabletJump to med 2 tablet, Oral, 2 TIMES DAILY PRN, const ipation, Starting 03/27/18 at 1339
Hold for loose stools. This is the first step of a three step constipation treatment.
documented in this encounter Care Teams Nursing Education Specialist Relationship Specialty Start Date End Date Clinic, [facility] PCP - General 11/05/15 10/25/21 [place] [address] [place] [address] Jose M, Sammie Referring Physician 10/16/16 [place] [address] [place] [id number] Guru BRITNEY Conrad Gastroenterology 10/16/16 Perry Rasmussen MD [address] [place], [place] [address] Jazmin Puentes, RICHY Registered Nurse 10/16/16 1 Jazmine Faye LPN COMPUTING TUTOR 10/16/16 01/15/20 [address] [facility] [place], [place] [id number] Jennifer Redmond EP Cardiac Rehabilitation 02/18/18 02/18/19 [facility] HOSP Therapist [address] [address] documented as of this encounter
--- OUTSIDE RECORDS SUMMARY | 2022-08-25 14:26 | XMS_ITS | Encounter Summary ---
:1960 Author Organization [place] Address [address] [facility] [place] [address] Care Team Providers Name Role Phone [facility] Primary Care Provider [phone] [facility] Unavailable [phone] Guru Perry Conrad MD Unavailable + Jazmin Puentes RN Unavailable Unavailable Jazmine Faye LPN Unavailable Reason for Visit Reason Comments Clinic Care Coordination - Follow-up Encounter Details Date Type Department Care Team Description 02/07/2017 Care Coordination Health Pancreas Audrey Faye Care and Biliary BETO Lucero Coordination - [address] [place] [address] Follow-up 4th Floor S [facility], [address] [place] [address] Social History Tobacco Use Types Packs/Day Years Used Date Current Every Day Smoker 1 28 Alcohol Use Standard Drinks/Week Comments Yes 1.7 (1 standard drink = 0.6 oz pure alco hol) Sex Assigned at Date Recorded Not on file documented as of this encounter Progress Notes Jazmin Puentes, RN - 02/13/2017 12:20 PM CDT Received message that Hay canceled his clinic appointment and CT scan. Per (Dr Conrad) recommendations: Please ask him to call us if he develops fevers, chills or night sweats, He has peripancreatic necrotic collections which have improved on conservative management but has not completely resolved He needs to abstain from alcohol as discussed before. Left message for him to call with the above information and contact information given for future questions/concerns. Jazmin Zhang RN Coordinator Dr. Murrieta, Dr. Guerrier & Dr. Kapadia Pancreas~Biliary [phone] #4 aJzmine Faye LPN - 02/07/2017 9:48 AM CDT Pt called to cancel clinic and CT due to finances. He also stated right now he is feeling good. I did enforce he needs to get another CT and clinic visit scheduled as soon as he is able financially. Will send note to MD and RN to notify. documented in this encounter Plan of Treatment Not on filedocumented as of this encounter Visit Diagnoses Not on filedocumented in this encounter Care Teams Asset Protection Manager Relationship Specialty Start Date End Date [facility] PCP - General 11/05/15 10/25/216[address] [place] [address] [facility] Referring Physician 10/16/16[address]39 [place] [address] Guru Perry Conrad MD Gastroenterology 10/16/16 MD [place] [address] [place] [id number] Jazmin Puentes, RICHY Registered Nurse 10/16/16 1 Jazmine Faye LPN LPN 10/16/16 01/15/[address] [place], [place] [id number] documented as of this encounter
--- OUTSIDE RECORDS SUMMARY | 2022-08-25 14:26 | XMS_ITS | Encounter Summary ---
:1960 Author Organization [place] Address [facility] access hospital[facility] [place] [address] Care Team Providers Name Role Phone [facility] Salguero Primary Care Provider [phone] [facility] [phone] Guru Perry Conrad MD Unavailable + Jazmin Puentes RN Unavailable Unavailable Jazmine Faye LPN Unavailable Encounter Details Date Type Department Care Team Description 12/01/2016 Orders Only [facility] Pancreas and Zullyknnamdi, Panc reatitis (Primary Biliary Guru Amador Dx) [address] [facility] MD [place] 4th Floor [address] [place] [address] [phone] Social History Tobacco Use Types Packs/Day Years Used Date Current Every Day Smoker 1 28 Alcohol Use Standard Drinks/Week Comments Yes 1.7 (1 standard drink = 0.6 oz pure alco hol) Sex Assigned at Date Recorded Not on file documented as of this encounter Plan of Treatment Not on filedocumented as of this encounter Visit Diagnoses Diagnosis Pancreatitis - Primary Acute pancreatitis documented in this encounter Care Teams Animal Nutrition Teacher Relationship Specialty Start Date End [facility] - [facility] 11/05/15 10/25/21 [address] [place] [address] Clinic, [facility]ie [place] Referring Physician 10/16/16 [address] [place] [address] Guru Perry Conrad MD Gastroenterology 10/16/16 MD [place] [address] [place], [place] [phone] Jazmin Puentes, RN Registered Nurse 10/16/1603/03/ 1 Jazmine Faye LPN STEREO OPERATOR 10/16/16 01/15/[address] [place] [address] documented as of this encounter
--- OUTSIDE RECORDS SUMMARY | 2022-08-25 14:26 | XMS_ITS | Encounter Summary ---
:1960 Author Organization [place] Address [address] [place] [address] Care Team Providers Name Role Phone [facility] Primary Care Provider [phone] [facility] Unavailable [phone] Guru Perry Conrad MD Unavailable + Jazmin Puentes RN Unavailable Unavailable Jazmine Faye LPN Unavailable Reason for Visit Reason Comments Clinic Care Coordination - Follow-up Encounter Details Date Type Department Care Team Description 10/24/2016 Care Coordination [facility] Pancreas Audrey Faye Care and Biliary BETO Lucero Coordination - [address] [place] [address] [address] Follow-up [address] [facility], [address] [place] [address] Social History Tobacco Use Types Packs/Day Years Used Date Current Every Day Smoker 1 28 Alcohol Use Standard Drinks/Week Comments Yes 1.7 (1 standard drink = 0.6 oz pure alco hol) Sex Assigned at Date Recorded Not on file documented as of this encounter Patient Instructions Patient InstructionsJazmine Faye LPN - 10/24/2016 9:50 AM CST Called patient to make sure CT is completed before appt 11/09. Patient stated will get done by next week. PROCESSING OPERATOR documented in this encounter Plan of Treatment Not on filedocumented as of this encounter Visit Diagnoses Diagnosis Pancreatic abscess - Primary Acute pancreatitis documented in this encounter Care Teams International Student Counselor Relationship Specialty Start Date End Date [facility] PCP - General 11/05/15 10/25/2[address] [place] [address] [facility] Referring Physician 10/16/16 [address] [place] [address] Guru Perry Conrad MD Gastroenterology 10/16/16 MD [place] [address] [place] [address] Jazmin Puentes, RN Registered Nurse 10/16/16 1 Jazmine Faye LPN LPN 10/16/16 01/15/[address] [place], [place] [id number] documented as of this encounter
--- OUTSIDE RECORDS SUMMARY | 2022-08-25 14:26 | XMS_ITS | Encounter Summary ---
:1960 Author Organization [place] Address [address] [place] [address] Care Team Providers Name Role Phone Sammie Salguero Primary Care Provider [phone] S[facility]ie Salguero Unavailable [phone] Guru Perry Conrad MD Unavailable + Jazmin Puentes RN Unavailable Unavailable Jazmine Faye LPN Unavailable Reason for Visit Reason Comments Patient Reminder left message in regards to u pcoming appt. Encounter Details Date Type Department Care Team Description 02/05/2017 Care Coordination [facility] and Richar Faye atient Reminder Biliary BETO Lucero (left message in [address] [place] [address] regards to upcoming 4th Floor S appt.) [facility], [address] [place] [phone] Social History Tobacco Use Types Packs/Day Years [...] on filedocumented in this encounter Care Teams Freelance Designer Relationship Specialty Start Date End Date [facility] - [facility] 11/05/15 10/25/[address] [place] [address] Clinic, Sammie [place] Referring Physician 10/16/16 [address] [place] [address] Guru Perry Conrad MD Gastroenterology 10/16/16 MD [place] [address] [place] [address] Jazmin Puentes, RICHY Registered Nurse 10/16/16 1 Jazmine Faye LPN CHEMICAL APPLICATOR 10/16/16 01/15/20 [address] [place], [place] [id number] documented as of this encounter
--- OUTSIDE RECORDS SUMMARY | 2022-08-25 14:26 | XMS_ITS | Encounter Summary ---
:1960 Author Organization [place] Address [address] [facility] [place] [address] Care Team Providers Name Role Phone [facility] Primary Care Provider [phone] [facility] Unavailable [phone] Guru Perry Conrad MD Unavailable + Jazmin Puentes RN Unavailable Unavailable NeydaJazmine LPN Unavailable Reason for Visit Reason Onset Date Comments Other 12/25/2016 Scheduling (Clinic/I R) Encounter Details Date Type Department Care Team Description 12/25/2016 Telephone [facility] Pancreas and Ana Cristina Conrad (Scheduling Biliary Guru Amador (Clinic/IR)) [address] [place] [address] MD [place] [address] [place] [phone] [id number] Social History Tobacco Use Types Packs/Day Years Used Date Current Every Day Smoker 1 28 Alcohol Use Standard Drinks/Week Comments Yes 1.7 (1 standard drink = 0.6 oz pure alco hol) Sex Assigned at Date Recorded Not on file documented as of this encounter Miscellaneous Notes Telephone Encounter - MckinleyMarnie - 12/25/2016 3:21 PM CST Patient informed that he is scheduled on 01/11/2017 at [address] and has a F/U with Dr. Kapadia on 02/15/2017 at 9 AM. Location of both appointments discussed with PT. SR 12/25/[address] SIGNAL OPERATOR documented in this encounter Plan of Treatment Not on filedocumented as of this encounter Visit Diagnoses Not on filedocumented in this encounter Care Teams Ground Operations Crew Member Relationship Specialty Start Date End Date [facility] PCP - General 11/05/15 10/25/21 [address] [place] [address] [facility] Referring Physician 10/16/16 [address] [place] [address] Guru Perry Conrad MD Gastroenterology 10/16/16 MD [place] [address] [place] [address] Jazmin Puentes, RICHY Registered Nurse 10/16/16 1 Jazmine Faye LPN PASTER HAT LINING 10/16/16 01/15/20 [address] [place], [place] [id number] documented as of this encounter
--- OUTSIDE RECORDS SUMMARY | 2022-08-25 14:26 | XMS_ITS | Encounter Summary ---
:1960 Author Organization [place] Address [address] [facility] [place] [address] Care Team Providers Name Role Phone Clinic, Sammie Dowell Primary Care Provider [phone] Reason for Visit Reason Comments Hospital F/U Encounter Details Date Type Department Care Team Description 09/26/2016 [facility] ParpiaRina K, Alcoho l-induced acute pancreatitis without infection or necrosis (Primary Dx); Visit Geriatric , Chronic obstructive pulmonary disease, u nspecified COPD type (H); Transitional Care [address] Chronic alcohol abuse; [address] Candidemia (H); [address] [place] [address] [place], [place] Essential hypertension, andreea gn; [phone] [id number] Physical deconditioning Social History Tobacco Use Types Packs/Day Years Used Date Current Every Day Smoker 1 28 Alcohol Use Standard Drinks/Week Comments Yes 1.7 (1 standard drink = 0.6 oz pure alco hol) Sex Assigned at Date Recorded Not on file documented as of this encounter Last Filed Vital Signs Vital Sign Reading Time Taken Comments Blood Pressure 138/90 09/26/2016 9:42 AM PROTECTIVE OFFICER Pulse 78 09/26/2016 9:42 AM PROTECTIVE OFFICER Temperature 36.7 ??C (98 ??F) 09/26/2016 9:42 AM PROTECTIVE OFFICER Respiratory Rate 16 09/26/2016 9:42 AM PROTECTIVE OFFICER Oxygen Saturation 92% 09/26/2016 9:42 AM PROTECTIVE OFFICER Inhaled Oxygen Concentration - - Weight 53.4 kg (117 lb 12.8 oz) 09/26/2016 9:42 AM PROTECTIVE OFFICER Height - - Body Mass Index 17.4 09/21/2016 10:06 AM CDT documented in this encounter Progress Notes Bryson Kim MD - 09/26/2016 3:32 PM CST PRIMARY CARE PROVIDER AND CLINIC RESPONSIBLE: Clinic, [facility], [address] [facility] / [facility] [address] ADMISSION HISTORY AND PHYSICAL EXAMINATION Chief Complaint Patient presents with ??? Hospital F/U HISTORY OF PRESENT ILLNESS: 56 year old male, (1960), [facility] medical care and rehab. Pt admitted [facility] from 08/25 to 09/20 for acute pancreatitis complicated by necrosis without infection, ETOH w/d, and candidemia. Pt denies any abdominal pain/fever/chills/N/V. Wants to know when he can go home. Patient is seen and examined by me with Robyn Almaraz CNP. Please see Robyn lAmaraz's admit noted dated 09/21 for details of admission, past medical history, family history, allergies, medication list, social history and other details pertinent with this admission. Hospital admission and dc summary reviewed. Past Medical History Diagnosis Date ??? HTN (hypertension) ??? COPD (chronic obstructive pulmonary disease) (H) ??? 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 Sciatic nerve pain No past surgical history on file. Current Outpatient Prescriptions Medication Sig ??? FLUCONAZOLE PO Take 200 mg by mouth daily X 7 days ??? senna-docusate (SENOKOT-S;PERICOLACE) 8.6-50 MG per tablet Take 2 tablets by mouth 2 times dailyuntil moving bowels regularly then decrease to one tab BID. Hold for loose stools and update LEGAL STENOGRAPHER ??? THIAMINE HCL PO Take 100 mg by mouth daily ??? guaiFENesin (ROBITUSSIN) 100 MG/5ML SYRP Take 10 mLs by mouth 3 times daily X 7 days ??? oxyCODONE (ROXICODONE) 5 MG immediate release tablet Take 0.5 tablets (2.5 mg) by mouth every 2 hours as needed for severe pain ??? ketoprofen 10% in PLO 10% Apply to neck, back, or shoulder four times daily as needed ??? ibuprofen (ADVIL,MOTRIN) 200 MG tablet Take 1-2 tablets (200-400 mg) by mouth every 6 hours as needed for moderate pain ??? LORazepam (ATIVAN) 0.5 MG tablet Take 1 tablet (0.5 mg) by mouth every 4 hours as needed for anxiety ??? lisinopril (PRINIVIL,ZESTRIL) 10 MG tablet Take 1 tablet (10 mg) by mouth daily ??? atenolol (TENORMIN) 50 MG tablet Take 1 tablet (50 mg) by mouth daily ??? nrbxpov-ixketd-wyyeygbg (CREON 12) [address]32 UNITS CPEP Take 1 capsule (12,000 Units) by mouth 3 times daily (with meals) ??? senna-docusate (SENOKOT-S;PERICOLACE) 8.6-50 MG per tablet Take 1-2 tablets by mouth 2 times daily as needed (constipation ) ??? magnesium hydroxide (MILK OF MAGNESIA) 400 MG/5ML suspension Take 30 mLs by mouth daily as needed for constipation ??? multivitamin, therapeutic with minerals (MULTI-VITAMIN) TABS Take 1 tablet by mouth daily ??? magnesium oxide (MAG-OX) 400 (241.3 MG) MG tablet Take 1 tablet (400 mg) by mouth daily ??? Cholecalciferol (VITAMIN D3 PO) Take 1,000 Units by mouth ??? fluticasone - vilanterol (BREO ELLIPTA) 100-25 MCG/INH oral inhaler Inhale 1 puff into the lungsdaily ??? umeclidinium bromide (INCRUSE ELLIPTA) 62.5 MCG/INH inhalation capsule Inhale 62.5 mcg into the lungs daily ??? ASPIRIN PO Take 81 mg by mouth daily ??? risperiDONE (RISPERDAL) 0.25 MG tablet Take 1 tablet (0.25 mg) by mouth At Bedtime for 4 days No current facility-administered medications for this visit. No Known Allergies Social History Social History ??? Marital Status: Spouse Name: N/A ??? Number of Children: N/A ??? Years of Education: N/A Occupational History ??? Not on file. Social History Main Topics ??? Smoking status: Current Every Day Smoker -- 1.00 packs/day for 28 years ??? Smokeless tobacco: Not on file ??? Alcohol Use: 1.0 oz/week 2 Cans of beer per week ??? Drug Use: No ??? Sexual Activity: Yes Other Topics Concern ??? Not on file Social History Narrative Information reviewed: Medications, vital signs, orders, nursing notes, problem list, hospital information. ROS: All 10 point review of system completed, those pertinent positive, please see H&P, the remaining ROS is negative. BP 138/90 mmHg Pulse 78 Temp(Src) 98 ??F (36.7 ??C) Resp 16 Wt 117 lb 12.8 oz (53.434 kg) SpO2 92% PHYSICAL EXAMINATION: GENERAL: No acute distress. Sitting in bed. Thin stature and appears malnourished. SKIN: Dry and warm. There is no rash, lesions, ulcers or juandice at area of skin examined. HEENT: Head without trauma. Pupils round, reactive. Exam of conjunctiva and lids are normal. Sclera without icterus. There is no oral thrush. NECK: Supple. There is no cervical adenopathy, no thyromegaly. No jugular venous distension. CHEST: No reproducible chest tenderness. LUNGS: Normal respiratory effort. Lungs are Clear on ascultation. + kyphosis. HEART: Regular rate and rhythm. No murmur, gallops or rubs auscultated. ABDOMEN: Soft, bowel sounds positive. There is no tenderness or guarding. EXTREMITIES: No edema. Normal range of motion. No calf swelling or tenderness. NEUROLOGIC: Alert and oriented x3. Lab/Diagnostic data: Reviewed WBC 9.7 09/25/2016 RBC 2.67 09/25/2016 HGB 8.8 09/25/2016 HCT 26.9 09/25/2016 MCV 101 09/25/2016 MCH 33.0 09/25/2016 MCHC 32.7 09/25/2016 RDW 17.8 09/25/2016 PLT 583 09/25/2016 Last Basic Metabolic Panel: NA 139 09/26/2016 POTASSIUM 3.8 09/26/2016 CHLORIDE 103 09/26/2016 TRAY 8.9 09/26/2016 CO2 26 09/26/2016 BUN 11 09/26/2016 CR 0.59 09/26/2016 GLC 72 09/26/2016 ASSESSMENT / PLAN: Alcohol-induced acute pancreatitis without infection. - Was on IV zosyn and merrem as inpatient. - On creon. Chronic obstructive pulmonary disease, unspecified COPD type (H) - On breo ellipta. Chronic alcohol abuse - On thiamine. - Counseled on cessation. - Patient agreeable. Candidemia (H) - Likely from IV access in hospital, on diflucan. Essential hypertension, benign - On atenolol, and lisinopril. Physical deconditioning -Plan: PT/OT, fall precautions. Care conference with patient and family for the progress of rehab and disposition issues will be discussed as planned. Rehab evaluation and other evaluations including CPT are at rehab logs, to be reviewed separately. Fall risk assessment as well as cognitive evaluationwill be formed during rehab stay if indicated. Severe Malnutrition. - Encourage PO intake. - Nutrition eval. Other problems with same care. Primary care doctor and other specialists to address those chronic problems in next clinic appointment to be scheduled upon discharge from the TCU. Total time spent with patient visit was 55 min including patient visit, review of past records, 1/2 time on patients counseling and coordinating care. Antoine Kim MD ECTIVE OFFICER documented in this encounter Plan of Treatment Not on filedocumented as of this encounter Visit Diagnoses Diagnosis Alcohol-induced acute pancreatitis witho ut infection or necrosis - Primary Chronic obstructive pulmonary disease, u nspecified COPD type (H) Chronic alcohol abuse Alcohol abuse, unspecified Candidemia (H) Disseminated candidiasis Essential hypertension, benign Physical deconditioning Debility, unspecified documented in this encounter Care Teams Product Development Worker Relationship Specialty Start Date End Date Clinic, Sammie Dowell PCP - General 11/05/15 10/25/21 [id number] [place] [address] documented as of this encounter
--- OUTSIDE RECORDS SUMMARY | 2022-08-25 14:26 | XMS_ITS | Encounter Summary ---
:1960 Author Organization [place] Address [address] [place] [address] Care Team Providers Name Role Phone Clinic, Sammie [place] Primary Care Provider [phone] Encounter Details Date Type Department Care Team Description 09/23/2016 [facility] CHANDRIKA Alvarez P Results [address] [place], [place] [address] (Wo rk) Social History Tobacco Use Types Packs/Day Years [...] Priority Date/Time Associated Diagnosis Comme nts POTASSIUM STAT 09/23/2016 7:14 AM Results f or this CDT procedure are i n the results section . documented in this encounter Results (ABNORMAL) Potassium (09/23/2016 7:14 AM CDT) athologist Signature Potassium 3.3 (L) 3.4 - 5.3 [place] mmol/L [facility] Specimen Anatomical Collection Method Collection Time Receive d Time (Source) Location / / Volume Laterality 09/23/2016 7:14 AM 6 8:25 CDT AM CDT Robyn Almaraz APRN MODEL MAKER SCALE LAB - BLOOD ORDERABLES Performing Organization Address City/State/ZIP Code Phon e Number M [facility] [address] [address] [facility] [address] [address], [facility] [phone] documented in this encounter Visit Diagnoses Not on filedocumented in this encounter Care Teams Bariatric Surgeon Relationship Specialty Start Date End Date Clinic, Sammie Dowell PCP - General 11/05/15 10/25/21 [address] [address] [id number] documented as of this encounter
--- OUTSIDE RECORDS SUMMARY | 2022-08-25 14:26 | XMS_ITS | Encounter Summary ---
:1960 Author Organization [place] Address [address] [place] [address] Care Team Providers Name Role Phone Clinic, Sammie Wheelerton Primary Care Provider [phone] Encounter Details Date Type Department Care Team Description 09/26/2016 Hospital Laboratory [facility] Keegan Almaraz [facility] CHANDRIKA Alvarez P Results [address] [place], [place] [address] (Wo rk) Social History [...] Procedure Name Priority Date/Time Associated Diagnosis Comme [facility] BASIC METABOLIC Routine 09/26/2016 6:00 AM Result s for this PANEL [facility] procedure are i n the results section. documented in this encounter Results (ABNORMAL) Basic metabolic panel (09/26/2016 6:00 AM [place] [place]) [facility] Method Time Signature Sodium 139 133 - 144 [place] mmol/L [facility] Potassium 3.8 3.4 - 5.3 [place] mmol/L [facility] Chloride 103 94 - 109 [place] mmol/L [facility] Carbon Dioxide 26 20 - 32 [place] mmol/L [facility] Anion Gap 10 3 - 14 [place] mmol/L [facility] Glucose 72 70 - 99 [place] mg/dL [facility] Urea Nitrogen 11 7 - 30 [place] mg/dL [facility] Creatinine 0.59 (L) 0.66 - [place] 1.25 [facility] mg/dL [facility] GFR Estimate >90 >60 [place] Non GFR Calc mL/min/1. [facility] 7m2 [facility] GFR Estimate >90 >60 [place] If Black GFR Calc mL/min/1. [place] 7m2 [facility] Calcium 8.9 8.5 - [place] 10.1 [facility] mg/dL [facility] Specimen Anatomical Collection Method Collection Time Receive d Time (Source) Location / / Volume Laterality 09/26/2016 6:00 AM 6 [place] 11:37 AM [place] Robyn Almaraz APRN GEOSCIENCE LABORATORY TECHNICIAN LAB - BLOOD ORDERABLES Performing Organization Address City/State/ZIP Code Phon e Number M [facility] [address] [address] [facility] [address] [address], [facility] [phone] documented in this encounter Visit Diagnoses Not on filedocumented in this encounter Care Teams Speech Professor Relationship Specialty Start Date End Date Clinic, Sammie Dowell PCP - General 11/05/15 10/25/21 [address] [address] [id number] documented as of this encounter
--- OUTSIDE RECORDS SUMMARY | 2022-08-25 14:26 | XMS_ITS | Encounter Summary ---
:1960 Author Organization [place] Address [address] [facility] [place] [address] Care Team Providers Name Role Phone Clinic, Sammie [place] Primary Care Provider [phone] [facility] Unavailable [phone] Guru Perry Conrad MD Unavailable + Jazmin Puentes RN Unavailable Unavailable NeydaJazmine LPN Unavailable Reason for Visit (Routine) - Closed Specialty Diagnoses / Procedures Referred By Contact Refer red To Contact Radiology / Radiology. Diagnoses Scheduled with patient Epic order JS Rh Ct Scan Procedures CT CHEST ABDOMEN PELVIS [address]WO [address] [place] [address] Phone: Fax: Referral ID Status Reason Start Date Expiration Date Visits Requ ested Visits Authorized [id number] Closed 11/06/2016 10/26/2017 1 1 Encounter Details Date Type Department Care Team Description 11/06/2016 Hospital Encounter [facility] None Panc reatic abscess [facility] Guru Perry Conrad MD [address] [place] [address] [address] [place] [address] Social History Tobacco Use Types Packs/Day Years Used Date Current Every Day Smoker 1 28 Alcohol Use Standard Drinks/Week Comments Yes 1.7 (1 standard drink = 0.6 oz pure alco hol) Sex Assigned at Date Recorded Not on file documented as of this encounter Medications at Time of Discharge Medication Sig Dispensed Refills Start Date End Date vvyoegp-kyxsvq-rztsamy Take 1 capsule 270 capsule 0 09/18/20 16 03/27/2018 e (CREON 12) 20052 (12,000 Units) by UNITS CPEPIndications: mouth 3 times daily 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 ASPIRIN PO Take 81 mg by mouth 0 03/27 daily atenolol (TENORMIN) 50 Take 1 tablet (50 mg) 0 03/27/2018 MG tabletIndications: by mouth daily Hypertension goal BP (blood pressure) < 140/80 fluticasone - Inhale 1 puff into 0 06/2021 vilanterol (BREO the lungs daily ELLIPTA) 100-25 MCG/INH oral inhaler ibuprofen Take 1-2 tablets 100 tablet 0 09/18/2016 03/27/20 18 (ADVIL,MOTRIN) 200 MG (200-400 mg) by mouth tabletIndications: every 6 hours as Pain needed for moderate pain ketoprofen 10% in PLO Apply to neck, back, 0 08/2103/27/2018 10%Indications: Strain or shoulder four of neck muscle, times daily as needed initial encounter lisinopril Take 1 tablet (10 mg) 30 tablet 0 09/18/201607/2018 (PRINIVIL,ZESTRIL) 10 by mouth daily MG tabletIndications: Hypertension goal BP (blood pressure) < 140/80 LORazepam (ATIVAN) 0.5 Take 0.5 mg by mouth 0 03/27/2018 MG tablet 2 times daily as needed for anxiety magnesium hydroxide Take 30 mLs by mouth 105 mL 0 201503/27/2018 (MILK OF MAGNESIA) 400 daily as needed for MG/5ML constipation suspensionIndications: Constipation, unspecified constipation type multivitamin, Take 1 tablet by 100 tablet 3 09/18/201603/27 therapeutic with mouth daily minerals (MULTI-VITAMIN) TABSIndications: Malnutrition (H) nicotine (NICODERM CQ) Place 1 patch onto 0 03/27/2018 21 MG/24HR patch 2h hr the skin every 24 hours oxyCODONE (ROXICODONE) Take 2.5 mg by mouth 0 03/27/2018 2.5 MG TABS every 6 hours as needed for moderate to severe pain senna-docusate Take 1-2 tablets by 100 tablet 0 09/18/2016 0 03/27/2018 (SENOKOT-S;PERICOLACE) mouth 2 times daily 8.6-50 MG per as needed tabletIndications: (constipation ) Constipation, unspecified constipation type senna-docusate Take 2 tablets by 0 07/2018 (SENOKOT-S;PERICOLACE) mouth 2 times daily 8.6-50 MG per tablet until moving bowels regularly then decrease to one tab BID. Hold for loose stools and update INFLATED PAD BUFFER THIAMINE HCL PO Take 100 mg by mouth 0 03/27/2018 daily umeclidinium bromide Inhale 62.5 mcg into 0 10/26/2021 (INCRUSE ELLIPTA) 62.5 the lungs daily MCG/INH inhalation capsule Vitamin D3 (VITAMIN Take 1,000 Units by 0 04/16/2020 D3) 25 mcg (1000 mouth daily units) tablet documented as of this encounter Plan of Treatment Not on filedocumented as of this encounter Procedures Procedure Name Priority Date/Time Associated Diagnosis Comme nts CT Routine 11/06/2016 8:23 AM Pancreatic abscess Res ults for this CHEST/ABDOMEN/PELVI [facility] TECHNICAL ARCHITECT procedur e are in S W CONTRAST the results section. documented in this encounter Results CT Chest/Abdomen/Pelvis w Contrast (11/06/2016 8:23 AM [facility] TECHNICAL ARCHITECT) Anatomical Region Laterality Modality Abdomen/Pelvis, Chest, SUBRAD CT BODY, UMP CT CHEST, Computed Tomography [facility] CT ABDOMEN PELVIS Specimen (Source) Anatomical Location Collection Method / Collectio n Time Received Time / Laterality Volume Impressions 11/06/2016 9:21 AM [facility] TECHNICAL ARCHITECT IMPRESSION: 1. Three peripancreatic fluid collection s/pseudocysts. The largest measures 3.4 cm. 2. Additional findings discussed above. RUDDY ZHAO MD Narrative 11/06/2016 9:21 [address] [facility] [address]CHNICAL ARCHITECT [address] CHEST/ABDOMEN/PELVIS WITH CONTRAST ?? 11/06/2016 8:23 AM HISTORY: Fluid collection. Acute pancrea titis without necrosis or infection, unspecified. TECHNIQUE: ?? 60 mL Isovue-370. Radiatio n dose for this scan was reduced using automated exposure control , adjustment of the mA and/or kV according to patient size, or iterati ve reconstruction technique. COMPARISON: Abdomen from 09/10/2016 and chest from 08/25/2016. FINDINGS: CHEST: ??Coronary artery calcifications. No pleural effusion. Bilateral bullous emphysematous changes again seen . Mild left pleural thickening/scarring. Mild right basilar atelectasis. There is a tiny right lung nodule on image 26, stable da ting back to July 25. ABDOMEN, PELVIS: Prostate enlargement. C olonic diverticulosis. Unremarkable appendix. There is some res idua of the previously seen pancreatitis findings. This includes thr ee peripancreatic fluid collections/pseudocysts. The largest is elongated and measures 3.4 cm in length. Continued follow-up recommend ed. Nothing else acute with respect to the remaining upper abdominal organs. Procedure Note Ruddy Zhao MD - 11/06/2016Formatting o f this note might be different from the original. CT CHEST/ABDOMEN/PELVIS WITH CONTRAST 8:23 AM HISTORY: Fluid collection. Acute pancrea titis without necrosis or infection, unspecified. TECHNIQUE: 60 mL Isovue-370. Radiation d ose for this scan was reduced using automated exposure control , adjustment of the mA and/or kV according to patient size, or iterati ve reconstruction technique. COMPARISON: Abdomen from 09/10/2016 and chest from 08/25/2016. FINDINGS: CHEST: Coronary artery calcifications. N o pleural effusion. Bilateral bullous emphysematous changes again seen . Mild left pleural thickening/scarring. Mild right basilar atelectasis. There is a tiny right lung nodule on image 26, stable da ting back to July 25. ABDOMEN, PELVIS: Prostate enlargement. C olonic diverticulosis. Unremarkable appendix. There is some res idua of the previously seen pancreatitis findings. This includes thr ee peripancreatic fluid collections/pseudocysts. The largest is elongated and measures 3.4 cm in length. Continued follow-up recommend ed. Nothing else acute with respect to the remaining upper abdominal organs. IMPRESSION: 1. Three peripancreatic fluid collection s/pseudocysts. The largest measures 3.4 cm. 2. Additional findings discussed above. RUDDY ZHAO MD Guru Perry Conrad MD IMG CT ORDERABLE S documented in this encounter Visit Diagnoses Diagnosis Pancreatic abscess Acute pancreatitis documented in this encounter Administered Medications Inactive Administered Medications - up to 3 most recent administrations Medication Order MAR Action Action Date Dose Rate Site 0.9% sodium chloride BOLUS New Bag 11/06/2016 7:58 AM [facility] TECHNICAL ARCHITECT 55 mLs Intravenous, 1,000 mL, ONCE, On 11/06/16 at 0730, For 1 dose iopamidol (ISOVUE-370) solution 500 mL Given 11/06/2016 7:58 AM [facility] TECHNICAL ARCHITECT 60 mLs 500 mL, Intravenous, ONCE, On 11/06/16 at 0730, For 1 dose documented in this encounter Care Teams Electronic Engraver Relationship Specialty Start Date End Date [facility] PCP - General 11/05/15 10/25/210[address] [place] [address] [facility] Referring Physician 10/16/16 [address] [place] [address] Guru Perry Conrad MD Gastroenterology 10/16/16 MD [place] [address] [place] [address] Jazmin Puentes, RICHY Registered Nurse 10/16/16 1 Jazmine Faye LPN PHARMACY SERVICES DIRECTOR 10/16/16 01/15/[address] [place], [place] [id number] documented as of this encounter
--- OUTSIDE RECORDS SUMMARY | 2022-08-25 14:26 | XMS_ITS | Encounter Summary ---
:1960 Author Organization [place] Address [address] [place] [address] Care Team Providers Name Role Phone Clinic, Sammie Dowell Primary Care Provider [phone] Encounter Details Date Type Department Care Team Description 09/22/2016 Hospital Laboratory [facility] Keegan Almaraz [facility] CHANDRIKA Alvarez P Results [address] [place], [place] [address] (Wo rk) Social History [...] Procedure Name Priority Date/Time Associated Comments Diagnosis CBC WITH PLATELETS & Routine 09/22/2016 7:47 AM R esults for this DIFFERENTIAL CDT procedure are i n the results section. PHOSPHORUS Routine 09/22/2016 7:47 AM Results f or this CDT procedure are i n the results section. MAGNESIUM Routine 09/22/2016 7:47 AM Results f or this CDT procedure are i n the results section. HEPATIC FUNCTION Routine 09/22/2016 7:47 AM Resul ts for this PANEL CDT procedure are i n the results section. BASIC METABOLIC PANEL Routine 09/22/2016 7:47 AM Results for this CDT procedure are i n the results section. documented in this encounter Results Phosphorus (09/22/2016 7:47 AM CDT) P athologist Signature Phosphorus 4.3 2.5 - 4.5 [place] mg/dL [facility] Specimen Anatomical Collection Method Collection Time Receive d Time (Source) Location / / Volume Laterality 09/22/2016 7:47 AM 6 9:27 CDT AM CDT Robyn Almaraz APRN WAREHOUSE SHIPPING SUPERVISOR LAB - BLOOD ORDERABLES Performing Organization Address City/State/ZIP Code Phon e Number M [facility] [address] [place] [address] [facility] [address] [place] [address], [place] [phone] Magnesium (09/22/2016 7:47 AM CDT) athologist Signature Magnesium 1.7 1.6 - 2.3 [place] mg/dL [facility] Specimen Anatomical Collection Method Collection Time Receive d Time (Source) Location / / Volume Laterality 09/22/2016 7:47 AM 6 9:27 CDT AM CDT Robyn Almaraz APRN WAREHOUSE SHIPPING SUPERVISOR LAB - BLOOD ORDERABLES Performing Organization Address City/State/ZIP Code Phon e Number M [facility] [address] [place] [address] [phone] [facility] [address] [place] [address], [place] [phone] (ABNORMAL) CBC with platelets differential (09/22/2016 7:47 AM CDT) [facility] gist Method Time Signature WBC 14.0 (H) 4.0 - [place] 11.0 [facility] 10e9/L [facility] RBC Count 2.73 (L) 4.4 - 5.9 [place] 10e12/L [facility] Hemoglobin 8.9 (L) 13.3 - [place] 17.7 g/dL [facility] Hematocrit 27.5 (L) 40.0 - [place] 53.0 % [facility] MCV 101 (H) 78 - 100 [facility] MCH 32.6 26.5 - [place] 33.[address] [facility] MCHC 32.4 31.5 - [place] 36.5 g/dL [facility] RDW 17.7 (H) 10.0 - [place] 15.0 % [facility] Platelet Count 622 (H) 150 - 450 [place] 10e9/L [facility] Diff Method Automated [place] Method [facility] % Neutrophils 74.6 % [facility] % Lymphocytes 11.5 % [facility] % Monocytes 11.4 % [facility] % Eosinophils 1.9 % [facility] % Basophils 0.3 % [facility] % Immature 0.3 % [place] Granulocytes [facility] Nucleated RBCs 0 0 /100 [facility] Absolute 10.4 (H) 1.6 - 8.3 [place] Neutrophil 10e9/L [facility] Absolute 1.6 0.8 - 5.3 [place] Lymphocytes 10e9/[facility] Absolute 1.6 (H) 0.0 - 1.3 [place] Monocytes 10e9/L [facility] Absolute 0.3 0.0 - 0.7 [place] Eosinophils 10e9/L [facility] Absolute 0.0 0.0 - 0.2 [place] Basophils 10e9/[facility] Abs Immature 0.0 0 - 0.4 [place] Granulocytes [address] [place] [address] Absolute 0.[address] [place] [address] [facility] Specimen Anatomical Collection Method Collection Time Receive d Time (Source) Location / / Volume Laterality 09/22/2016 7:47 AM 6 9:27 CDT AM CDT Robyn Almaraz APRN WAREHOUSE SHIPPING SUPERVISOR LAB - BLOOD ORDERABLES Performing Organization Address City/State/ZIP Code Phon e Number M [facility] [address] [place] [address] [phone] [facility] [address] [place] [address], [place] [phone] (ABNORMAL) Basic metabolic panel (09/22/2016 7:47 AM CDT) [facility] Method Time Signature Sodium 140 133 - 144 [place] mmol/L [facility] Potassium 2.9 (L) 3.4 - 5.3 [place] mmol/L [facility] Chloride 102 94 - 109 [place] mmol/L [facility] Carbon Dioxide 28 20 - 32 [place] mmol/L [facility] Anion Gap 10 3 - 14 [place] mmol/L [facility] Glucose 117 (H) 70 - 99 [place] mg/dL [facility] Urea Nitrogen 8 7 - 30 [place] mg/dL [facility] Creatinine 0.64 (L) 0.66 - [place] 1.25 [facility] mg/dL [facility] GFR Estimate >90 >60 [place] Non GFR Calc mL/min/1. [place] [address]m2 [facility] GFR Estimate >90 >60 [place] If Black GFR Calc mL/min/1. [place] [address]m2 [facility] Calcium 8.9 8.5 - [place] 10.1 [facility] mg/dL [facility] Specimen Anatomical Collection Method Collection Time Receive d Time (Source) Location / / Volume Laterality 09/22/2016 7:47 AM 6 9:27 CDT AM CDT Robyn Almaraz APRN WAREHOUSE SHIPPING SUPERVISOR LAB - BLOOD ORDERABLES Performing Organization Address City/State/ZIP Code Phon e Number M [facility] [address] [place] [address] [phone] [facility] [address] [place] [address], [place] [phone] (ABNORMAL) Hepatic panel (09/22/2016 7:47 AM CDT) Analysis Performed At Patho logist Time Signature Bilirubin Direct 0.1 0.0 - 0.2 [place] mg/dL [facility] Bilirubin Total 0.3 0.2 - 1.3 [place] mg/dL [facility] Albumin 2.5 (L) 3.4 - 5.0 [place] g/dL [facility] Protein Total 7.5 6.8 - 8.8 [place] g/dL [facility] Alkaline 103 40 - 150 [place] Phosphatase U/L [facility] ALT 29 0 - 70 U/L [facility] AST 16 0 - 45 U/L [facility] Specimen Anatomical Collection Method Collection Time Receive d Time (Source) Location / / Volume Laterality 09/22/2016 7:47 AM 6 9:27 CDT AM CDT Robyn Almaraz APRN WAREHOUSE SHIPPING SUPERVISOR LAB - BLOOD ORDERABLES Performing Organization Address City/State/ZIP Code Phon e Number M [facility] [address] [place] [address] [facility] [address] [place] [address], [facility] [phone] documented in this encounter Visit Diagnoses Not on filedocumented in this encounter Care Teams Large Animal Veterinarian Relationship Specialty Start Date End Date Clinic, Sammie Dowell PCP - General 11/05/15 10/25/21 [address] [place] [address] documented as of this encounter
--- OUTSIDE RECORDS SUMMARY | 2022-08-25 14:26 | XMS_ITS | Encounter Summary ---
:1960 Author Organization [place] Address [address] [place] [address] Care Team Providers Name Role Phone Clinic, Sammie [place] Primary Care Provider [phone] [facility] [place] Unavailable [phone] Guru Perry Conrad MD Unavailable + Jazmin Puentes RN Unavailable Unavailable NeydaJazmine LPN Unavailable Jennifer Redmond Unavailable Reason for Visit Rehab Therapy Cardiac Therapy (Routine) - Closed Specialty Diagnoses / Procedures Referred By Contact Refer red To Contact CARDIAC REHAB Procedures [facility] [address] [place] [address] Phone: Fax: Referral ID Status Reason Start Date Expiration Date Visits V isits Requested Authorized COUNTS INCLUDE 234 BEDS AT THE [facility] [place] Closed 02/11/2018 11/18/2018 72 72 ([id number]) Encounter Details Date Type Department Care Team Description 02/18/2018 Hospital Encounter [facility] Danielito Mathew MD [facility] [address] [place] [address] Cardiac and Pulmonary 2, Rh Pulmonary Re[facility] [place] [id number] [place] [address] [address] [place] [address] Social History Tobacco Use Types Packs/Day Years Used Date Current Every Day Smoker 1 28 Alcohol Use Standard Drinks/Week Comments Yes 1.7 (1 standard drink = 0.6 oz pure alco hol) Sex Assigned at Date Recorded Not on file documented as of this encounter Medications at Time of Discharge Medication Sig Dispensed Refills Start Date End Date azrhxow-kadfyh-yispcoi Take 1 capsule 270 capsule 0 09/18/20 16 03/27/2018 e (CREON 12) 10390 (12,000 Units) by UNITS CPEPIndications: mouth 3 times daily 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 capsuleIndications: Pancreatitis ASPIRIN PO Take 81 mg by mouth [...] BID. Hold for loose stools and update FENCE ERECTOR THIAMINE HCL PO Take 100 mg by mouth 0 03/27/2018 daily umeclidinium bromide Inhale 62.5 mcg into 0 10/26/2021 (INCRUSE ELLIPTA) 62.5 the lungs daily MCG/INH inhalation capsule Vitamin D3 (VITAMIN Take 1,000 Units by 0 04/16/2020 D3) 25 mcg (1000 mouth daily units) tablet documented as of this encounter Progress Notes Dimas Steele MD - 02/18/2018 11:59 PM CDT Pulmonary Rehab Discharge Summary Reason for discharge: Patient/family request discontinuation of services. Progress towards goals: Goals not met. Barriers to achieving goals: discharge on same date as initial evaluation. Pt did notreturn Recommendation(s): Continued therapy is recommended. Rationale/Recommendations: Pt couyld benefit from [place] in the futureif he agrees to it.. Holly De La Garza, RT on 05/16/2018 at 12:08 PM documented in this encounter Plan of Treatment Not on filedocumented as of this encounter Procedures Procedure Name Priority Date/Time Associated Diagnosis Comme nts OXIMETRY - HIM SCAN 02/18/2018 12:00 AM CDT documented in this encounter Results OXIMETRY - HIM SCAN (02/18/2018 12:00 AM CDT) Specimen (Source) Anatomical Location Collection Method / Collectio n Time Received Time / Laterality Volume 02/18/2018 Narrative This result has an attachment that is no t available. Provider Scan PFT ORDERABLES documented in this encounter Visit Diagnoses Not on filedocumented in this encounter Care Teams Visual Merchandise Manager Relationship Specialty Start Date End Date [facility] - General 11/05/15 10/25/[address] [place] [address] [place], [place] [id number] [facility] Referring Physician 10/16/[address] [place] [address] [place] [address] Guru BRITNEY Conrad Gastroenterology 10/16/16 Perry Rasmussen MD [address] [place] [address] Jazmin Puentes, RN Registered Nurse 10/16/16 1 Jazmine Faye LPN RESTAURANT SHIFT SUPERVISOR 10/16/16 01/15/[address] [place], [place] [id number] Jennifer Redmond EP Cardiac Rehabilitation 02/18/18 02/18/19 [facility] Therapist [address] [place] [id number] documented as of this encounter
--- OUTSIDE RECORDS SUMMARY | 2022-08-25 14:26 | XMS_ITS | Encounter Summary ---
:1960 Author Organization [place] Address [address] [facility] [place] [address] Care Team Providers Name Role Phone [facility] [place] Primary Care Provider [phone] [facility] Unavailable [phone] Guru Perry Conrad MD Unavailable + Jazmin Puentes RN Unavailable Unavailable NeydaJazmine LPN Unavailable Reason for Visit Reason Onset Date Comments Other 12/18/2016 Scheduling (Clinic/I R) Encounter Details Date Type Department Care Team Description 12/18/2016 Telephone [facility] Pancreas and Ana Cristina Conrad (Scheduling Biliary Guru Amador (Clinic/IR)) [address] [place] [address] MD [place] [address] [place] [phone] Social History Tobacco Use Types Packs/Day Years Used Date Current Every Day Smoker 1 28 Alcohol Use Standard Drinks/Week Comments Yes 1.7 (1 standard drink = 0.6 oz pure alco hol) Sex Assigned at Date Recorded Not on file documented as of this encounter Miscellaneous Notes Telephone Encounter - Marnie Sen - 12/18/2016 4:01 PM CST Left VM for Hay to return my call. Trying to inform him of his appointments with Dr. Kapadia and IR. SR 12/18/2016 402p HING MACHINE OPERATOR documented in this encounter Plan of Treatment Not on filedocumented as of this encounter Visit Diagnoses Not on filedocumented in this encounter Care Teams Print Color Operator Relationship Specialty Start Date End Date [facility] PCP - General 11/05/15 10/25/21 [address] [place] [address] [facility] Referring Physician 10/16/16 [address] [place] [address] Guru Perry Conrad MD Gastroenterology 10/16/16 MD [place] [address] [place], [place] [address] Jazmin Puentes, RN Registered Nurse 10/16/16 1 Jazmine Faye LPN PLASTERER MAINTENANCE 10/16/16 01/15/[address] [place] [address] documented as of this encounter
--- OUTSIDE RECORDS SUMMARY | 2022-08-25 14:26 | XMS_ITS | Encounter Summary ---
:1960 Author Organization [place] Address [address] [place] [address] Care Team Providers Name Role Phone Clinic, Sammie [place] Primary Care Provider [facility] [place] Unavailable [phone] Guru Perry Conrad MD Unavailable + Jazmin Puentes RN Unavailable Unavailable NeydaJazmine LPN Unavailable Jennifer Redmond Unavailable Reason for Visit Rehab Therapy Cardiac Therapy (Routine) - Closed Specialty Diagnoses / Procedures Referred By Contact Refer red To Contact CARDIAC REHAB Procedures [facility] [address] [place] [address] Phone: Fax: Referral ID Status Reason Start Date Expiration Date Visits V isits Requested Authorized [facility] [place] Closed 02/11/2018 11/18/2018 72 72 ([id number]) Encounter Details Date Type Department Care Team Description 02/28/2018 Hospital Encounter [facility] Danielito Mathew MD [place] [facility] [address] [place] [address] Cardiac and Pulmonary 2, Rh Pulmonary Rehab Rehabilitation [place] [address] [place] [address] [address] [place] [address] Social History Tobacco Use Types Packs/Day Years Used Date Current Every Day Smoker 1 28 Alcohol Use Standard Drinks/Week Comments Yes 1.7 (1 standard drink = 0.6 oz pure alco hol) Sex Assigned at Date Recorded Not on file documented as of this encounter Medications at Time of Discharge Medication Sig Dispensed Refills Start Date End Date alahzoj-nwqmtu-flsqpab Take 1 capsule 270 capsule 0 09/18/20 16 03/27/2018 e (CREON 12) 37190 (12,000 Units) by UNITS CPEPIndications: mouth 3 times daily 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 jgswmoc-xhrfzn-rlltfsy Take 2-3 with meals / 450 capsule 6 0 12/01/2016 03/27/2018 e (CREON) 14260 UNITS 1-2 with snacks, up CPEP per [...] BID. Hold for loose stools and update HELP DESK SUPPORT THIAMINE HCL PO Take 100 mg by mouth 0 03/27/2018 daily umeclidinium bromide Inhale 62.5 mcg into 0 10/26/2021 (INCRUSE ELLIPTA) 62.5 the lungs daily MCG/INH inhalation capsule Vitamin D3 (VITAMIN Take 1,000 Units by 0 04/16/2020 D3) 25 mcg (1000 mouth daily units) tablet documented as of this encounter Miscellaneous Notes Addendum Note - Holly De La Garza RT - 02/28/2018 11:59 PM CDTEncounter addended by: Holly De La Garza RT on: 03/04/2018 8:37 AM
Actions taken: Charge Capture section accepted documented in this encounter Plan of Treatment Not on filedocumented as of this encounter Visit Diagnoses Not on filedocumented in this encounter Care Teams Linux Systems Administrator Relationship Specialty Start Date End Date Jose M, Sammie PCP - General 11/05/15 10/25/21 [place] [address] [place] [address] Jose M, Sammie Referring Physician 10/16/16 [place] [address] [place], [place] [address] Guru BRITNEY Conrad Gastroenterology 10/16/16 Perry Rasmussen MD [address] [place], [place] [address] Jazmin Puentes, RN Registered Nurse 10/16/16 1 Jazmine Faye LPN VOTING MACHINE MECHANIC 10/16/16 01/15/20 [address] [facility] [place], [place] [id number] Jennifer Redmond EP Cardiac Rehabilitation 02/18/18 02/18/19 [facility] Therapist [address] [place] [id number] documented as of this encounter
--- OUTSIDE RECORDS SUMMARY | 2022-08-25 14:26 | XMS_ITS | Encounter Summary ---
:1960 Author Organization [place] Address [address] [facility] [place] [address] Care Team Providers Name Role Phone [facility] Primary Care Provider [phone] [facility] Unavailable [phone] Guru Perry Conrad MD Unavailable + Jazmin Puentes RN Unavailable Unavailable Jazmine Faye BETO Unavailable Reason for Visit Reason Comments Clinic Care Coordination - Follow-up follow-up Encounter Details Date Type Department Care Team Description 12/14/2016 Care Coordination [facility] Pancreas Jazmin Puentes Cli matt Care and Biliary RN Coordination - [address] [place] [address] Follow-up (follow-up) [address] [place] [address] Social History Tobacco Use Types Packs/Day Years Used Date Current Every Day Smoker 1 28 Alcohol Use Standard Drinks/Week Comments Yes 1.7 (1 standard drink = 0.6 oz pure alco hol) Sex Assigned at Date Recorded Not on file documented as of this encounter Progress Notes Jazmin Puentes, RICHY - 12/14/2016 1:56 PM CST Asked to order CT (CT scan with IV contrast of abdomen ??in 2 months and follow up with me in Pancreas Clinic- per Dr Kapadia) Orders placed for CT scan. WAY SIGNALLING ENGINEER documented in this encounter Plan of Treatment Not on filedocumented as of this encounter Visit Diagnoses Diagnosis Pancreatitis - Primary Acute pancreatitis documented in this encounter Care Teams Slater Apprentice Relationship Specialty Start Date End Date [facility] PCP - General 11/05/15 [address] [place] [address] [facility], [facility] Referring Physician 10/16/16 [address] [place] [address] Guru Perry Conrad MD Gastroenterology 10/16/16 MD [place] [address] [place], [place] [address] Jazmin Puentes, RICHY Registered Nurse 10/16/16 1 Jazmine Faye LPN OFFICE MACHINE PUNCH OPERATOR 10/16/16 01/15/[address] [place], [place] [id number] documented as of this encounter
--- OUTSIDE RECORDS SUMMARY | 2022-08-25 14:26 | XMS_ITS | Encounter Summary ---
:1960 Author Organization [place] Address [address] [facility] [place] [address] Care Team Providers Name Role Phone Clinic, Sammie Wheelerton Primary Care Provider [phone] Reason for Referral Specialty Diagnoses / Procedures Referred By Contact Refer red To Contact Robyn Julio APRN CNP [address] [place] [id number] Referral ID Status Reason Start Date Expiration Date Visits Requ ested Visits Authorized SERVICE ASSISTANT Reason for Visit Reason Comments Discharge Summary Residential Encounter Details Date Type Department Care Team Description 09/27/2016 Discharge Summary [facility] Robyn Julio Discharge Summary Residential Geriatric CHANDRIKA Alvarez CNP Residential Transitional Care [address] [place] [id number] [place] [address] Social History Tobacco Use Types Packs/Day Years Used Date Current Every Day Smoker 1 28 Alcohol Use Standard Drinks/Week Comments Yes 1.7 (1 standard drink = 0.6 oz pure alco hol) Sex Assigned at Date Recorded Not on file documented as of this encounter Last Filed Vital Signs Vital Sign Reading Time Taken Comments Blood Pressure 156/95 09/27/2016 11:45 AM FOOD SERVICE ASSISTANT Pulse 70 09/27/2016 11:45 AM FOOD SERVICE ASSISTANT Temperature 36.6 ??C (97.9 ??F) 09/27/2016 11:45 AM FOOD SERVICE ASSISTANT Respiratory Rate 16 09/27/2016 11:45 AM FOOD SERVICE ASSISTANT Oxygen Saturation 94% 09/27/2016 11:45 AM FOOD SERVICE ASSISTANT Inhaled Oxygen Concentration - - Weight 53.4 kg (117 lb 12.8 oz) 09/27/2016 11:45 AM FOOD SERVICE ASSISTANT Height 175.3 cm (5' 9) 09/27/2016 11:45 AM FOOD SERVICE ASSISTANT Body Mass Index 17.4 09/27/2016 11:45 AM FOOD SERVICE ASSISTANT documented in this encounter Progress Notes Robyn Julio, CHANDRIKA BACKEND DEVELOPER - 09/27/2016 11:48 AM CST [facility] DISCHARGE SUMMARY PATIENT'S NAME: Hay Gutierrez DATE OF : 1960 PRIMARY CARE PROVIDER AND CLINIC RESPONSIBLE AFTER TRANSFER: [facility], [address] [address] CODE STATUS/ADVANCE DIRECTIVES DISCUSSION: Full Code No Known Allergies TRANSFERRING PROVIDERS: Robyn Julio NP, Rina Kim MD DATE OF SNF ADMISSION: September DATE OF SNF (anticipated) DISCHARGE: September [place]CHARGE [place] [place] [facility] Facility[facility] Hospital stay 08/25/16 to 09/20/16. Condition on Discharge: Improving. Blood Pressures: 125/83 mmHg-177/99 mmHg Weights: 117.4-118.2 lb Function: Ind with FWW Cognitive Scores: SLUMS 24/30 Equipment: walker DISCHARGE DIAGNOSIS: 1. Alcohol-induced acute pancreatitis without infection or necrosis 2. EtOH dependence (H) 3. Chronic alcohol abuse 4. Agitation 5. Candidemia (H) 6. Chronic obstructive pulmonary disease, unspecified COPD type (H) 7. Severe malnutrition (H) 8. Hypocalcemia 9. Hypomagnesemia 10. Neck and shoulder pain 11. Remote history of stroke 12. Right sided weakness 13. Tobacco use disorder 14. Constipation, unspecified constipation type 15. Physical deconditioning TCU Facility [facility] as above for Alcohol- induced acute pancreatitis without infection or necrosis. Please see TCU admit note of 11/3/16 for further details regarding hospitalization. Issues addressed in TCU: Alcohol-induced acute pancreatitis without infection or necrosis- resolving EtOH dependence (H) Chronic alcohol abuse - completed antibiotic course- labs - open to cessation - declined ACP - provided chem dep resources - completed IV abx inpatient, improving - f/w biliary clinic in 1- 2- weeks. Agitation - ? 2/2 ETOH WD inpatient - since resolved - titrating prn Lorazepam which patient is using approx 1-2 times a day- continue BID prn until f/w PCP Candidemia (H) ??- complete Diflucan course 09/26 - no active s/s infection - f/w PCP in next 7 days COPD (chronic obstructive pulmonary disease) (H) - mild dry cough - continue on currrent with fluticasone and Umeclidinium Severe malnutrition (H) - improving - extended hosp, chronic ETOH, TPN inpatent - Flower Buncher Or Picker referral - nutritional supplements added - added Thiamine, continue MVI- ??- weights stable in TCU 118 Hypokalemia Hypocalcemia Hypomagnesemia - stable as below in TCU - recheck, replace prn Neck and shoulder pain- ?? - improving - continue ibuprofen and ketoprofen gel Remote history of stroke Right sided weakness, mild - noted - on ASA Tobacco use disorder - not currently smoking - offer nicotine replacement Constipation, unspecified constipation type - resolved - continue on Senna S Physical deconditioning - 2/2 above - lives with spouse - home with home PT/OT/RN/CLASSIFICATION CASE MANAGER PAST MEDICAL HISTORY: has a past medical history of HTN (hypertension); COPD (chronic obstructive pulmonary disease) (H); CVA (cerebral infarction); and Sciatic nerve pain. He also has no past medical history of Coronary artery disease, Asthma, Congestive heart failure, unspecified, Arthritis, Unspecified cerebral artery occlusion with cerebral infarction, Thyroid disease, Diabetes mellitus (H), Malignant neoplasm (H), or Blood transfusion. DISCHARGE MEDICATIONS: Current Outpatient Prescriptions Medication Sig Dispense Refill ??? nicotine (NICODERM CQ) 21 MG/24HR patch 2h hr Place 1 patch onto the skin every 24 hours ??? FLUCONAZOLE PO Take 200 mg by mouth daily X 7 days ??? senna-docusate (SENOKOT-S;PERICOLACE) 8.6-50 MG per tablet Take 2 tablets by mouth 2 times dailyuntil moving bowels regularly then decrease to one tab BID. Hold for loose stools and update PAINTING DEPARTMENT SUPERVISOR ??? THIAMINE HCL PO Take 100 mg by mouth daily ??? guaiFENesin (ROBITUSSIN) 100 MG/5ML SYRP Take 10 mLs by mouth 3 times daily X 7 days ??? oxyCODONE (ROXICODONE) 5 MG immediate release tablet Take 0.5 tablets (2.5 mg) by mouth every 2 hours as needed for severe pain 30 tablet 0 ??? ketoprofen 10% in PLO 10% Apply to neck, back, or shoulder four times daily as needed ??? ibuprofen (ADVIL,MOTRIN) 200 MG tablet Take 1-2 tablets (200-400 mg) by mouth every 6 hours as needed for moderate pain 100 tablet ??? LORazepam (ATIVAN) 0.5 MG tablet Take 1 tablet (0.5 mg) by mouth every 4 hours as needed for anxiety 15 tablet 0 ??? lisinopril (PRINIVIL,ZESTRIL) 10 MG tablet Take 1 tablet (10 mg) by mouth daily 30 tablet ??? atenolol (TENORMIN) 50 MG tablet Take 1 tablet (50 mg) by mouth daily ??? wdbxgsw-jzoorj-vbzwawdt (CREON 12) 56495 UNITS CPEP Take 1 capsule (12,000 Units) by mouth 3 times daily (with meals) 270 capsule ??? senna-docusate (SENOKOT-S;PERICOLACE) 8.6-50 MG per tablet Take 1-2 tablets by mouth 2 times daily as needed (constipation ) 100 tablet ??? magnesium hydroxide (MILK OF MAGNESIA) 400 MG/5ML suspension Take 30 mLs by mouth daily as needed for constipation 105 mL ??? multivitamin, therapeutic with minerals (MULTI-VITAMIN) TABS Take 1 tablet by mouth daily 100 tablet 3 ??? magnesium oxide (MAG-OX) 400 (241.3 MG) MG tablet Take 1 tablet (400 mg) by mouth daily 60 tablet 3 ??? Cholecalciferol (VITAMIN D3 PO) Take 1,000 [...] by mouth At Bedtime for 4 days MEDICATION CHANGES/RATIONALE: ROS: 4 point ROS including Respiratory, CV, GI and , other than that noted in the HPI, is negative Physical Exam: Vitals: BP 156/95 mmHg Pulse 70 Temp(Src) 97.9 ??F (36.6 ??C) Resp 16 Ht 5' 9 (1.753 m) Wt 117 lb 12.8 oz (53.434 kg) BMI 17.39 kg/m2 SpO2 94% BMI= Body mass index is 17.39 kg/(m^2). Resp: Effort WNL, LSCTA CV: S1-2, no S3-4, no murmurs noted- VSS - no edema Abd- soft, nontender, BS + Musc- MUNOZ Psych- alert, calm, pleasant DISCHARGE PLAN: Occupational Therapy, Physical Therapy, Registered Nurse and Home Health Aide Follow-up with PCP in 7 days by calling [phone] to schedule an appointment. Current [place] scheduled appointments: Pending labs: [facility] labs Last Basic Metabolic Panel: NA 139 09/26/2016 POTASSIUM 3.8 09/26/2016 CHLORIDE 103 09/26/2016 TRAY 8.9 09/26/2016 CO2 26 09/26/2016 BUN 11 09/26/2016 CR 0.59 09/26/2016 GLC 72 09/26/2016 Mg 1.7 09/22/16 Phos 4.3 09/22/16 WBC 9.7 09/25/2016 RBC 2.67 09/25/2016 HGB 8.8 09/25/2016 HCT 26.9 09/25/2016 MCV 101 09/25/2016 MCH 33.0 09/25/2016 MCHC 32.7 09/25/2016 RDW 17.8 09/25/2016 PLT 583 09/25/2016 Liver Function Studies - Recent Labs Lab Test 09/22/16 0747 PROTTOTAL 7.5 ALBUMIN 2.5* BILITOTAL 0.3 ALKPHOS 103 AST 16 ALT 29 Discharge Treatments: as above TOTAL DISCHARGE TIME: Greater than 30 minutes Electronically signed by: Robyn Julio APRN CNP SERVICE ASSISTANT documented in this encounter Miscellaneous Notes Addendum Note - Robyn Julio APRN CNP - 09/27/2016 1:46 PM FOOD SERVICE ASSISTANT Addended by: ROBYN JULIO on: 09/27/2016 01:46 PM Modules accepted: Orders, Medications SERVICE ASSISTANT documented in this encounter Plan of Treatment Scheduled Referrals Name Type Priority Associated Diagnoses Order S Critical access hospital NURSING Referral Routine Alcohol-induced acute O rdered: 09/27/2016 REFERRAL pancreatitis without infection or nec rosis Physical deconditioning documented as of this encounter Visit Diagnoses Diagnosis Alcohol-induced acute pancreatitis witho ut infection or necrosis - Primary EtOH dependence (H) Other and unspecified alcohol dependence , unspecified drinking behavior Chronic alcohol abuse Alcohol abuse, unspecified Agitation Other and unspecified special symptom or syndrome, not elsewhere classified Candidemia (H) Disseminated candidiasis Chronic obstructive pulmonary disease, u nspecified COPD type (H) Severe malnutrition (H) Nutritional marasmus Hypocalcemia Hypomagnesemia Disorders of magnesium metabolism Neck and shoulder pain Remote history of stroke Transient ischemic attack (TIA), and cer ebral infarction without residual deficits Right sided weakness Muscle weakness (generalized) Tobacco use disorder Constipation, unspecified constipation t ype Physical deconditioning Debility, unspecified documented in this encounter Care Teams Client Service Coordinator Relationship Specialty Start Date End Date Clinic, Sammie Dowell PCP - General 11/05/15 10/25/21 [address] [place] [address] documented as of this encounter
--- OUTSIDE RECORDS SUMMARY | 2022-08-25 14:26 | XMS_ITS | Encounter Summary ---
:1960 Author Organization [place] Address [address] [facility] [place] [address] Care Team Providers Name Role Phone Clinic, Sammie Teller Primary Care Provider [phone] [facility], [facility] Unavailable Guru Perry Conrad MD Unavailable + Jazmin Puentes RN Unavailable Unavailable Jazmine Faye LPN Unavailable Reason for Visit Reason Comments RECHECK f/u Encounter Details Date Type Department Care Team Description 11/09/2016 [facility] and Romi Conrad otizing Biliary Guru Amador pancreatitis (Primary [address] [facility] MD Grady Dx) [address] [place] [phone] [id number] Social History Tobacco Use Types Packs/Day Years Used Date Current Every Day Smoker 1 28 Alcohol Use Standard Drinks/Week Comments Yes 1.7 (1 standard drink = 0.6 oz pure alco hol) Sex Assigned at Date Recorded Not on file documented as of this encounter Last Filed Vital Signs Vital Sign Reading Time Taken Comments Blood Pressure 119/77 11/09/2016 11:34 AM WEATHER OBSERVER Pulse 70 11/09/2016 11:34 AM WEATHER OBSERVER Temperature 36.7 ??C (98.1 ??F) 11/09/2016 11:34 AM WEATHER OBSERVER Respiratory Rate - - Oxygen Saturation 97% 11/09/2016 11:34 AM WEATHER OBSERVER Inhaled Oxygen Concentration - - Weight 55.1 kg (121 lb 6.4 oz) 11/09/2016 11:34 AM WEATHER OBSERVER Height 172.7 cm (5' 8) 11/09/2016 11:34 AM WEATHER OBSERVER Body Mass Index 18.46 11/09/2016 11:34 AM WEATHER OBSERVER documented in this encounter Progress Notes Guru Perry Conrad MD - 11/09/2016 12:49 PM CST REFERRING PHYSICIAN: Dr. Black REASON FOR CONSULTATION: Necrotizing pancreatitis and post discharge follow-up. HISTORY OF PRESENT ILLNESS: This is a very pleasant 56-year-old white male with history of hypertension, COPD, a previous stroke and ongoing alcohol dependence who was admitted recently to an outside hospital for acute pancreatitis in 08/25. He was seen by [facility] during the same, and his pancreatitis was complicated by development of necrosis, pneumonia and sepsis from pneumonia, and he was hospitalized for more than a month. His CT scan on 09/10/2016 showed prominent areas of peripancreatic collection with areas of decreased enhancement in the superior pancreatic body compatible with necrosis. He subsequently had another CT scan on 11/06/2016 which clearly shows that his collections have dany wn smaller. He has 3 peripancreatic fluid collections which currently measures 3.4 cm. Since discharge the patient clinically has been doing really well. He denies current nausea, vomiting or abdominal pain. He denies fevers, chills or night sweats suggestive of infection of the necrotic collection. He also denies any passage of dark-colored urine, jaundice or any itching. He denies dysphagia, odynophagia, melena, hematochezia or hemetemesis. He is taking pancreatic enzyme supplementation since discharge. He has quit alcohol since . Smoking, continues to be a problem for him. REVIEW OF SYSTEMS: A complete 10-point review of systems was performed and was noted to be negative except as above. PAST MEDICAL HISTORY: 1. Acute necrotizing pancreatitis. 2. Alcohol dependence. 3. Stroke. 4. COPD. 5. Sciatic nerve pain. 6. Hypertension. PAST SURGICAL HISTORY: Nil. FAMILY HISTORY: No history of history of pancreatitis in the family. SOCIAL HISTORY: Currently daily smoker, smokes up to 15 cigarettes a day. Drinks alcohol and has been drinking for the past 25 years and quit in between but then started drinking again. He currently quit alcohol on 08/25. No history of IV drug abuse. He is disabled. 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 He is currently disabled from stroke. ALLERGIES: No known drug allergies. PHYSICAL EXAMINATION: VITAL SIGNS: Stable. GENERAL: He is not in acute distress. HEAD AND NECK: No pallor, no icterus. CHEST: Lungs are clear to auscultation. CARDIOVASCULAR: S1, S2 heard, rate and rhythm are regular. ABDOMEN: Soft, nontender, nondistended. Bowel sounds are heard. CENTRAL NERVOUS SYSTEM: Alert, awake, oriented to time, place and person. EXTREMITIES: No pedal edema. ASSESSMENT AND PLAN: This is a 56-year-old gentleman with history of acute pancreatitis secondary toalcohol abuse admitted for almost a month at an outside hospital, complicated by necrosis, pneumonia, sepsis and fungal sinus fungal infection. His most recent CT shows that his pancreatic necrotic collection has grown smaller. Currently his collection is measuring 3.4 cm in length. Clinically this collection appears to be stable, and he has no current symptoms or indications for any intervention. Our recommendations are as follows: 1. Repeat CT scan of the abdomen with IV contrast in 2 months, and we will follow up the patient in the clinic during the same time. We will anticipate that the necrotic collection will further resolvewith conservative management and may not warrant any intervention. 2. The patient has been warned of symptoms suggesting need for interventions. These would include fevers, chills, night sweats which would suggest infection of the necrotic collection, as well as nausea, vomiting, abdominal pain which would indicate gastric outlet obstruction, and jaundice and/or passage of dark- colored urine and elevated LFTs, which would indicate biliary tract obstruction. Currently, there is no indication for intervention, and given the small size we would expect the necrotic collection to completely resolve without any intervention. 3. We would recommend continuing pancreatic enzyme supplementation Creon 24,000 units 3 times with meals and 2 twice with snacks. The patient requested a refill, which will be organized through our chief nursing executive next week. 4. The patient has been advised to abstain from smoking and was told that smoking could accelerate progression of pancreatic disease, and could also trigger new attacks of pancreatitis and has also been advised to continue abstaining from alcohol. 5. Will recommend followup panc-bili clinic visit in 2 months with me. A total of 45 minutes were spent with more than 50% spent in counseling and coordinating are. HER OBSERVER documented in this encounter Nursing Notes Russ Vázquez CMA - 11/09/2016 11:36 AM CST Chief Complaint Patient presents with ??? RECHECK f/u Filed Vitals: 11/09/16 1134 BP: 119/77 Pulse: 70 Temp: 98.1 ??F (36.7 ??C) Height: 5' 8 Weight: 121 lb 6.4 oz SpO2: 97% Body mass index is 18.46 kg/(m^2). Russ Vázquez MA HER OBSERVER documented in this encounter Plan of Treatment Not on filedocumented as of this encounter Visit Diagnoses Diagnosis Necrotizing pancreatitis - Primary Acute pancreatitis documented in this encounter Care Teams Enrollment Management Manager Relationship Specialty Start Date End Date [facility] PCP - General 11/05/15 10/25/21 [address] [place] [address] [facility] Referring Physician 10/16/16 [address] [place] [address] Guru Perry Conrad MD Gastroenterology 10/16/16 MD [address] [place] [address] Jazmin Puentes, RN Registered Nurse 10/16/16 1 Jazmine Faye LPN CNC MACHINE PROGRAMMER 10/16/16 01/15/[address] [place], [place] [id number] documented as of this encounter
--- OUTSIDE RECORDS SUMMARY | 2022-08-25 14:26 | XMS_ITS | Encounter Summary ---
:1960 Author Organization [place] Address [address] [place] [address] Care Team Providers Name Role Phone [facility] Primary Care Provider [phone] [facility] Unavailable [phone] Guru Perry Conrad MD Unavailable + Jazmin Puentes RN Unavailable Unavailable Jazmine Faye LPN Unavailable Reason for Visit Reason Comments Clinic Care Coordination - Follow-up Left message Encounter Details Date Type Department Care Team Description 11/13/2016 Care Coordination Health Pancreas Audrey Faye Care and Biliary BETO Lucero Coordination - [address] [facility] [address] Follow-up (Left 4th Floor S message) [facility], [phone] [place] [address] Social History Tobacco Use Types Packs/Day Years Used Date Current Every Day Smoker 1 28 Alcohol Use Standard Drinks/Week Comments Yes 1.7 (1 standard drink = 0.6 oz pure alco hol) Sex Assigned at Date Recorded Not on file documented as of this encounter Progress Notes Jazmine Faye LPN - 11/13/2016 1:[address] Kapadia - He needs a CT scan with IV contrast of abdomen ??in 2 months and follow up with [facility] EGE ADVISOR documented in this encounter Plan of Treatment Not on filedocumented as of this encounter Visit Diagnoses Not on filedocumented in this encounter Care Teams Engineering Technologist Relationship Specialty Start Date End Date [facility] PCP - General 11/05/15 10/25/213[address] [place] [address] [facility] Referring Physician 10/16/16 [address] [place] [address] Guru Perry Conrad MD Gastroenterology 10/16/16 MD [address] [place] [address] Jazmin Puentes, RICHY Registered Nurse 10/16/16 1 Jazmine Faye LPN LPN 10/16/16 01/15/[address] [place], [place] [id number] documented as of this encounter
--- OUTSIDE RECORDS SUMMARY | 2022-08-25 14:26 | XMS_ITS | Encounter Summary ---
:1960 Author Organization [place] Address [address] [place] [address] Care Team Providers Name Role Phone [facility] Primary Care Provider [phone] [facility] Unavailable [phone] Guru Perry Conrad MD Unavailable + Jazmin Puentes RN Unavailable Unavailable NeydaJazmine LPN Unavailable Reason for Visit Reason Onset Date Comments Other 12/14/2016 Scheduling (clinic/C T) Encounter Details Date Type Department Care Team Description 12/14/2016 Telephone Health Pancreas and Ana Cristina Conrad (Scheduling Biliary Guru Amador (clinic/CT)) [address] [place] [address] MD Grady [address] [place] [phone] Social History Tobacco Use Types Packs/Day Years Used Date Current Every Day Smoker 1 28 Alcohol Use Standard Drinks/Week Comments Yes 1.7 (1 standard drink = 0.6 oz pure alco hol) Sex Assigned at Date Recorded Not on file documented as of this encounter Miscellaneous Notes Telephone Encounter - Jessy Sentheodore - 12/14/2016 2:22 PM CST Calling to inform Hay of his appointments with IR and Dr. Kapadia. 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 PCP - General 11/05/15 10/25/21 [address] [place] [address] [facility] Referring Physician 10/16/16 [address] [place] [address] Guru Perry Conrad MD Gastroenterology 10/16/16 MD [address] [place] [address] Jazmin Puentes, RN Registered Nurse 10/16/16 1 Jazmine Faye LPN TELECOMMUNICATIONS FIELD TECHNICIAN 10/16/16 01/15/20 [address], [place] [phone] documented as of this encounter
--- OUTSIDE RECORDS SUMMARY | 2022-08-25 14:26 | XMS_ITS | Encounter Summary ---
:1960 Author Organization [place] Address [address] [place] [address] Care Team Providers Name Role Phone Clinic, Sammie Wheelerton Primary Care Provider [phone] Encounter Details Date Type Department Care Team Description 09/25/2016 Hospital Laboratory [facility] Keegan Almaraz [facility] CHANDRIKA Alvarez P Results [address] [place], [place] [address] (Wo rk) Social History [...] Name Priority Date/Time Associated Diagnosis Comme nts CBC WITH PLATELETS Routine 09/25/2016 6:00 AM Res ults for this GAUGE INSPECTOR procedure are i n the results section. documented in this encounter Results (ABNORMAL) CBC with platelets (09/25/2016 6:00 AM GAUGE INSPECTOR) Analysis Performed At Patho logist Time Signature WBC 9.7 4.0 - 11.0 [place] 10e9/L [facility] RBC Count 2.67 (L) 4.4 - 5.9 [place] 10e12/L [facility] Hemoglobin 8.8 (L) 13.3 - [place] 17.7 g/dL [facility] Hematocrit 26.9 (L) 40.0 - [place] 53.0 % [facility] MCV 101 (H) 78 - 100 [place] fl [facility] MCH 33.0 26.5 - [place] 33.0 pg [facility] MCHC 32.7 31.5 - [place] 36.5 g/dL [facility] RDW 17.8 (H) 10.0 - [place] 15.0 % [facility] Platelet Count 583 (H) 150 - 450 [place] 10e9/L [facility] Specimen Anatomical Collection Method Collection Time Receive d Time (Source) Location / / Volume Laterality 09/25/2016 6:00 AM 6 9:46 GAUGE INSPECTOR AM GAUGE INSPECTOR Robyn Almaraz APRN [facility] MANAGER LAB - BLOOD ORDERABLES Performing Organization Address City/State/ZIP Code Phon e Number M [facility] [address] [place] [address] [facility] [address] [place] [address], [facility] [phone] documented in this encounter Visit Diagnoses Not on filedocumented in this encounter Care Teams Medical Science Liaison Relationship Specialty Start Date End Date Clinic, Sammie Dowell PCP - General 11/05/15 10/25/21 [address] [place] [address] documented as of this encounter
--- OUTSIDE RECORDS SUMMARY | 2022-08-25 14:26 | XMS_ITS | Encounter Summary ---
:1960 Author Organization [facility] Address [address] [place] [address] Care Team Providers Name Role Phone Sammie Salguero Primary Care Provider [phone] [facility] [place] Unavailable [phone] Guru Perry Conrad MD Unavailable + Jazmin Puentes RN Unavailable Unavailable Jazmine Faye LPN Unavailable Reason for Visit Reason Comments Patient Reminder left message in regards to a ppt. Encounter Details Date Type Department Care Team Description 11/08/2016 Care Coordination [facility] Richar Faye atient Reminder Biliary BETO Lucero (left message in [address] [place] [address] SE Replaced by [facility] regards to appt.) 4[address] Floor [facility], [id number] [place] [id number] Social History Tobacco Use Types Packs/Day Years [...] on filedocumented in this encounter Care Teams Adult Live In Caregiver Relationship Specialty [facility] Date [facility] - [facility] 10/25/21 [id number] [place] [address] Clinic, Sammie Dowell Referring Physician 10/16/16 [id number] [place], [place] [id number] Guru Perry Conrad MD Gastroenterology 10/16/16 MD [address] [place], [place] [id number] Jazmin Puentes, RN Registered Nurse 10/16/16 1 Jazmine Faye LPN [employer] 10/16/16 01/15/20 [address] [place], [place] [id number] documented as of this encounter
--- OUTSIDE RECORDS SUMMARY | 2022-08-25 14:27 | XMS_ITS | Encounter Summary ---
:1960 Author Organization [place] Address [address] [place] [address] Care Team Providers Name Role Phone Clinic, Manuelkatherine Magalys Primary Care Provider [phone] Reason for Visit Reason Comments Rib Pain Auth/Cert Specialty Diagnoses / Procedures Referred By Contact Refer red To Contact Diagnoses Hypoxia Fall, initial encounter Closed fracture of multiple ribs of left side, initial encounter Pneumonia of left lower lobe due to infectious organism Pneumonia Rh [facility] Medical [facility] [address] [place], [place] [address] Phone: Fax: Referral ID Status Reason Start Date Expiration Date Visits Requ ested Visits Authorized [id number] 11/06/2015 11/05/2016 1 1 Encounter Details Date Type Department Care Team Description 11/05/2015 - [facility] Shelby Simon PA-C [facility] [address] [place] [address] Benign essential hypertension (Primary D x); 11/09/2015 Encounter [facility] 5 Medical Juan M Davis MD [facility] [address] [place] [address] Fall, initial encounter; Surgical Mae Villatoro MD Closed fracture of multiple ribs of left side, initial encounter; [address] Pneumonia of left lower lobe due to infectious organism (H) [place] [address] Social History Tobacco Use Types Packs/Day Years Used Date Current Every Day Smoker 1 28 Alcohol Use Standard Drinks/Week Comments Yes 1.7 (1 standard drink = 0.6 oz pure alco hol) Sex Assigned at Date Recorded Not on file documented as of this encounter Last Filed Vital Signs Vital Sign Reading Time Taken Comments Blood Pressure 125/66 11/09/2015 10:58 AM ACCOUNT STRATEGIST Pulse 96 11/09/2015 12:33 AM ACCOUNT STRATEGIST Temperature 36.2 ??C (97.1 ??F) 11/09/2015 8:00 AM ACCOUNT STRATEGIST Respiratory Rate 16 11/09/2015 12:00 PM ACCOUNT STRATEGIST Oxygen Saturation 96% 11/09/2015 12:00 PM ACCOUNT STRATEGIST Inhaled Oxygen Concentration - - Weight 55.2 kg (121 lb 12.8 oz) 11/05/2015 6:15 PM ACCOUNT STRATEGIST Height 172.7 cm (5' 7.99) 11/09/2015 9:41 AM ACCOUNT STRATEGIST Body Mass Index 18.52 11/05/2015 6:15 PM ACCOUNT STRATEGIST documented in this encounter Discharge Summaries Star Short MD - 11/09/2015 4:54 PM CST [facility] Discharge Summary Steve Gutierrez Date of : 1960 Age: [age] year old Date of Admission: 11/05/2015 Date of Discharge: 11/09/2015 2:02 PM Admitting Physician: Mae Villatoro MD Discharge Physician: Star Short MD Discharging Service: Hospitalist Primary Provider: Sammie Salguero Primary Care Physician Phone Number: None Discharge Diagnoses/Problem Oriented Hospital Course (Providers): Steve Gutierrez was admitted on 11/05/2015 by Mae Villatoro MD and I would refer you to theirhistory and physical. ???I saw and evaluated the patient?? DISCHARGE DIAGNOSES: 1. Fall with acute left-sided rib fractures. 2. Left-sided posterior lateral rib fractures of the ninth to twelfth ribs. 3. Acute respiratory distress secondary to #2. 4. Acute chronic obstructive pulmonary disease exacerbation. 5. Probable postobstructive pneumonia. 6. Hypertension. 7. History of hyperlipidemia. 8. Severe malnutrition in the context of acute on chronic illness HOSPITAL COURSE: Acute respiratory distress secondary to rib fractures and probable pneumonia with underlying COPD exacerbation: Steve Gutierrez is a 65-year-old male with a history of COPD on home O2at 3 liters per minute, but the patient states that he only generally wears it at night, who presents here with a fall that resulted in multiple rib fractures and was noted to be in respiratory distress. On presentation, chest x-ray demonstrates some atelectasis at the left lung base. CT of the chest did demonstrate emphysema and bronchiectatic changes with mucoid impactions in the right lower lobe. Also demonstrated notable mucoid impactions in the left lower lobe with complete atelectasis of the left lower lobe. Mild trace pericardial effusion was noted and there were acute-appearing posterior lateral left rib fractures along the ninth to twelfth ribs. The patient was admitted and offered pain control. Given his COPD exacerbation, he was started on some scheduled duonebs. No steroids were started due to the absence of significant bronchospasm and some of the COPD exacerbation is likely secondary to his rib fracture with probable postobstructive pneumonia. In any event, the patient continued to do well. He was started empirically to cover community-acquired pneumonia with ceftriaxone and azithromycin. Given his slow improvement, he was transitioned to IV Levaquin. His respiratory status was monitored closely. His FIO2 requirements had gone up as high as 5 liters, but on the day of discharge, had been titrated down to his baseline of 3 liters. The day prior, he even reports being off the oxygen for a few hours without any respiratory distress at rest. Pain was better controlled after some topical Ketoprofen gel as well as scheduled Tylenol and ibuprofen. P.r.n. oxycodone was also ordered.He was able to ambulate independently and states that his breathing was near baseline post-discharge. At discharge, he will be discharged on 5 additional days of p.o. Levaquin to complete a 10-day course of antibiotic treatment. DISPOSITION: Discharged to home in a stable condition with . FOLLOW UP: Follow up with primary MD within 1 week for followup. Pending Results: Unresulted Labs Ordered in the Past 30 Days of this Admission No orders found from 09/07/2015 to 11/06/2015. Discharge Instructions and Follow-Up: Follow-up Appointments Follow-up and recommended labs and tests Follow up with primary care provider, Sammie [facility], within 7 days for hospital follow- up. No follow up labs or test are needed. Discharge Disposition: Discharged to home Discharge Medications: Discharge Medication List as of 11/09/2015 12:43 PM START taking these medications Details oxyCODONE (ROXICODONE) 5 MG immediate release tablet Take 1-2 tablets (5-10 mg) by mouth every 4 hours as needed for moderate to severe pain, Disp-30 tablet, R- 0, Local Print acetaminophen (TYLENOL) 500 MG tablet Take 2 tablets (1,000 mg) by mouth 3 times daily for 5 days, OTC ketoprofen 10% in PLO 10% Apply to painful areas on the chest 3x daily as needed., Disp-30 g, R-0, Local Print levofloxacin (LEVAQUIN) 500 MG tablet Take 1 tablet (500 mg) by mouth every 24 hours, Disp-5 tablet,R-0, E-Prescribe senna-docusate (SENOKOT-S;PERICOLACE) 8.6-50 MG per tablet Take 2 tablets by mouth 2 times daily, Disp-14 tablet, R-0, E-Prescribe CONTINUE these medications which have CHANGED Details lisinopril (PRINIVIL,ZESTRIL) 20 MG tablet Take 1 tablet (20 mg) by mouth At Bedtime, Disp-30 tablet, No Print OutHOLD until seen by primary MD amLODIPine (NORVASC) 10 MG tablet Take 1 tablet (10 mg) by mouth At Bedtime, Disp-30 tablet, No Print OutHOLD until seen by primary MD CONTINUE these medications which have NOT CHANGED Details vitamin D (ERGOCALCIFEROL) 92090 UNIT capsule Take 50,000 Units by mouth once a week, Historical atenolol (TENORMIN) 25 MG tablet Take 25 mg by mouth daily, Historical ipratropium - albuterol 0.5 mg/2.5 mg/3 mL (DUONEB) 0.5-2.5 (3) MG/3ML nebulization Take 1 vial by nebulization every 6 hours as needed for shortness of breath / dyspnea or wheezing, Historical umeclidinium bromide (INCRUSE ELLIPTA) 62.5 MCG/INH inhalation capsule Inhale 62.5 mcg into the lungs daily, Historical albuterol (PROAIR HFA, PROVENTIL HFA, VENTOLIN HFA) 108 (90 BASE) MCG/ACT inhaler Inhale 2 puffs into the lungs every 4 hours as needed for shortness of breath / dyspnea or wheezing, Disp-1 Inhaler, R-3, E-Prescribe budesonide-formoterol (SYMBICORT) 160-4.5 MCG/ACT inhaler Inhale 2 puffs into the lungs 2 times daily, Disp-1 Inhaler, R-1, E-Prescribe ATORVASTATIN CALCIUM PO Take 40 mg by mouth At Bedtime , Historical ASPIRIN PO Take 81 mg by mouth daily , Historical STOP taking these medications fluticasone - vilanterol (BREO ELLIPTA) 100-25 MCG/INH oral inhaler Comments: Reason for Stopping: Allergies: No Known Allergies Consultations This Hospital Stay: No consultations were requested during this admission Image Results From This Hospital Stay (For Non-EPIC Providers): Results for orders placed or performed during the hospital encounter of 11/05/15 Chest XR, 1 view PORTABLE Narrative XR CHEST PORT 1 VW 11/05/2015 3:04 PM HISTORY: Chest pain. COMPARISON: 05/03/2015, 02/20/2012 FINDINGS: Minimal scarring or atelectasis at the left lung base. No consolidation, pleural effusion or pneumothorax. Stable heart size. Old left-sided rib injuries. Impression IMPRESSION: No acute abnormality. EDGAR HERNANDEZ MD CT Chest/Abdomen/Pelvis w Contrast Narrative CT CHEST/ABDOMEN/PELVIS WITH CONTRAST 11/05/2015 3:48 PM HISTORY: Tripping and falling on rug two days ago with rib pain. COMPARISON: CT chest, abdomen and pelvis 08/05/2006. TECHNIQUE: Axial images from the thoracic inlet to the symphysis are performed with additional coronal reformatted images. 63 mL of Isovue 370 are given intravenously. FINDINGS: Chest: Emphysema is present. Mild bronchiectatic changes with mucoid impactions right lower lobe are noted. Mucoid impactions are also noted in the left lower lobe with complete atelectasis of the left lower lobe. Trace left pleural effusion is also noted. Findings could indicate an obstructing endobronchial mass in the proximal left lower lobe bronchus. No right pleural fluid or pericardial fluid. Heart is normal in size. Coronary artery calcifications are present. No enlarged lymph nodes. No definite evidence of pneumothorax. Abdomen: The abdominal organs are within normal limits. No evidence of solid abdominal organ injury or laceration. No free intraperitoneal air or ascites. The bowel is normal in caliber without obstruction. Appendix is normal. Aorta is calcified without aneurysm or dissection. Pelvis: The bladder, prostate and rectum are unremarkable. No enlarged pelvic lymph nodes or free fluid. Old healed posterolateral left rib fractures are present. Acute posterior left rib fractures are also present involving the 9th, 10th, 11th and 12th ribs. Degenerative spine changes are present. No aggressive-appearing bone lesions are evident. Impression IMPRESSION: 1. Fractures of the posterolateral 9th through 12th ribs. No evidence of pneumothorax. Small left pleural effusion is present. 2. Left lower lobe mucoid impactions with complete atelectasis left lower lobe. An endobronchial mass not excluded. Followup with bronchoscopy as needed. Mild bronchiectasis right lower lobe with mucoid impactions are also noted without atelectasis. Emphysema. 3. No evidence of solid abdominal organ injury or laceration. No ascites or hemorrhage. NICOLETTE GUTIERRES MD Disclaimer: This note consists of symbols derived from keyboarding, dictation and/or voice recognition software. As a result, there may be errors in the script that have gone undetected. Please consider this when interpreting information found in this chart. STAR SHORT MD MT: [id number] Name: STEVE GUTIERREZ MRN: [id number] Account: [id number] : 1960 Admit Date: Discharge Date: 11/09/2015 Document: [id number] UNT STRATEGIST documented in this encounter Discharge Instructions Discharge Chastity Marroquin RN - 11/07/2015 1:06 PM CST Call your physician if: 1. Increased shortness of breath or difficulty breathing at rest or with activity. 2. Temperature greater than 101.0 degrees. 3. Blue nailbeds and/or lips. 4. Persistent cough with sputum production. 5. If you experience chest pain call 911. 6. If you are prescribed antibiotics, you must complete the entire course. 7. Any other questions or concerns related to your recovery. Thank you for allowing [facility] participate in your cares!! UNT STRATEGIST AttachmentsThe following attachments cannot be sent through Care Everywhere. PNEUMONIA, DISCHARGE INSTRUCTIONS FOR (MACEDONIAN)documented in this encounter Medications at Time of Discharge Medication Sig Dispensed Refills Start Date End Date acetaminophen (TYLENOL) Take 2 tablets (1,000 0 1 01/10/2015 11/14/2015 500 MG mg) by mouth 3 times tabletIndications: daily for 5 days Closed fracture of multiple ribs of left side, initial encounter albuterol (PROAIR HFA, Inhale 2 puffs into 1 Inhaler 3 04/1908/25/2016 PROVENTIL HFA, VENTOLIN the lungs every 4 HFA) 108 (90 BASE) hours as needed for MCG/ACT shortness of breath / inhalerIndications: dyspnea or wheezing COPD (chronic obstructive pulmonary disease) (H) amLODIPine (NORVASC) 10 Take 1 tablet (10 mg) 30 tablet 0 1 01/10/2015 08/25/2016 MG tabletIndications: by mouth At Bedtime Benign essential hypertension ASPIRIN PO Take 81 mg by mouth 0 03/27 daily atenolol (TENORMIN) 25 Take 25 mg by mouth 0 09/18/2016 MG tablet daily ATORVASTATIN CALCIUM PO Take 40 mg by mouth At 0 08/25/2016 Bedtime budesonide-formoterol Inhale 2 puffs into 1 Inhaler 1 05/0308/25/2016 (SYMBICORT) 160-4.5 the lungs 2 times MCG/ACT daily inhalerIndications: COPD (chronic obstructive pulmonary disease) (H), COPD exacerbation (H) ipratropium - albuterol Take 1 vial by 0 08/25/2016 0.5 mg/2.5 mg/3 mL nebulization every 6 (DUONEB) 0.5-2.5 (3) hours as needed for MG/3ML nebulization shortness of breath / dyspnea or wheezing ketoprofen 10% in PLO Apply to painful areas 30 g 0 08/25/2016 10%Indications: Closed on the chest 3x daily fracture of multiple as needed. ribs of left side, initial encounter levofloxacin (LEVAQUIN) Take 1 tablet (500 mg) 5 tablet 0 11/09/2015 08/25/2016 500 MG by mouth every 24 tabletIndications: hours pneumonia, postobstructive? lisinopril Take 1 tablet (20 mg) 30 tablet 0 11/09/201505/2016 (PRINIVIL,ZESTRIL) 20 by mouth At Bedtime MG tabletIndications: Benign essential hypertension oxyCODONE (ROXICODONE) Take 1-2 tablets (5-10 30 tablet 0 1 01/10/2015 08/25/2016 5 MG immediate release mg) by mouth every 4 tabletIndications: hours as needed for Closed fracture of moderate to severe multiple ribs of left pain side, initial encounter senna-docusate Take 2 tablets by 14 tablet 0 11/09/201505/2016 (SENOKOT-S;PERICOLACE) mouth 2 times daily 8.6-50 MG per tabletIndications: Closed fracture of multiple ribs of left side, initial encounter umeclidinium bromide Inhale 62.5 mcg into 0 10/26/2021 (INCRUSE ELLIPTA) 62.5 the lungs daily MCG/INH inhalation capsule vitamin D Take 50,000 Units by 0 05/2016 (ERGOCALCIFEROL) 27676 mouth once a week UNIT capsule documented as of this encounter Progress Notes Marcia Unger RN - 11/09/2015 2:21 PM CST Hand-off for Care Transitions to Next Level of Care Provider Name: Steve Gutierrez Reason for Hospitalization: Hypoxia [R09.02] Fall, initial encounter [W19.XXXA] Closed fracture of multiple ribs of left side, initial encounter [S22.42XA] Pneumonia of left lower lobe due to infectious organism [J18.9] Admit Date/Time: 11/05/2015 2:16 PM Discharge Date: 11/09/15 Reason for Communication Hand-off Referral: Admission diagnoses: PN Discharge Plan: Discharged to: Home-independent Patient agreeable to post-hospital support suggestions: Yes Discharge Plan: Patient is on new medications: Yes MTM follow up recommended: No Tel-Assurance program: Ineligible Follow-up specialty is recommended: No This would communicate all referrals e.g. , C[facility] clinic, Homecare, Cardiac Rehab Follow-up plan: No future appointments. Any outstanding tests or procedures: [place] Recommendations: PNA, smoker, home 02 through [place] [facility], fall, hx of cva with right sided weakness, COPD, 5-9 c med Marcia Unger [phone] Sent via [employer] fax UNT STRATEGIST Katelin Beltran RN - 11/09/2015 1:12 PM CST Pt to D/C to home. Pt provided with d/c instructions, including new medications, when medications were last given, and when to take them again. Pt also informed which medications to stop taking (confirmed with Dr. Short that pt should STOP taking lisinopril and norvasc- pt updated). Pt also informed to f/u with PCP in 1 week. Pt verbalized understanding of all d/c and f/u instructions. All questions were answered at this time. Copy of paperwork sent with pt. Medications (oxycodone, ketoprofen, senna-s, levaquin) x 4 sent with pt. Son to provide transport and will bring portable O2 tank to hospital. Flu Vaccine: Recieved AIRCRAFT TECHNICIAN Pneumovax: Recieved AIRCRAFT TECHNICIAN UNT STRATEGIST Haider Bill, RT - 11/09/2015 12:57 PM CST Pt received a SVN (Duoneb) x 2 this morning and tolerated it well. He is currently on 3 LPM and is sating 94-96% BBS are diminished, he has a good strong NPC. Pt was instructed again in the importance of the continued use of his acapella and IS following his discharge this afternoon. Will continue to monitor and assess. Vital signs: Temp: 97.1 ??F (36.2 ??C) Temp src: Oral BP: 125/66 mmHg Pulse: 96 Heart Rate: 94 Resp: 16 SpO2: 96 % O2 Device: Nasal cannula Oxygen Delivery: 3 LPM Height: 172.7 cm (5' 7.99) Weight: 55.248 kg (121 lb 12.8 oz) Estimated body mass index is 18.52 kg/(m^2) as calculated from the following: Height as of this encounter: 1.727 m (5' 7.99). Weight as of this encounter: 55.248 kg (121 lb 12.8 oz). PAST MEDICAL HISTORY: Past Medical History Diagnosis Date ??? HTN (hypertension) ??? COPD (chronic obstructive pulmonary disease) ??? 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 FAMILY HISTORY: Family History Problem Relation Age of Onset ??? Cancer Father ??? Cancer Sister SOCIAL HISTORY: History Substance Use Topics ??? Smoking status: Current Every Day Smoker -- 1.00 packs/day for 28 years ??? Smokeless tobacco: Not on file ??? Alcohol Use: 1.0 oz/week 2 Cans of beer per week Haider Bill RT 11/09/2015 UNT STRATEGIST Star Short MD - 11/08/2015 2:58 PM CST Images from the original note were not included. [facility] Hospitalist Progress Note Name: Steve Gutierrez Date of : 1960 Age: [age] year old Date of admission: 11/05/2015 Primary care provider: Sammie Salguero Reason for Stay (Diagnosis): Acute L rib fx/resp distress Assessment and Plan: Summary of Stay: Steve Gutierrez is a 55 year old male patient with h/o COPD admitted with fall thatresulted in multiple ribs fractures and respiratory distress . On presentation, chest x-ray showed atelectasis at the left lung base with rib fractures. Follow-up CT scan of the chest did demonstrate emphysema with bronchiectatic changes with mucoid impactions in the right lower lobe. Also notable mucoid impactions in the left lower lobe with complete atelectasis of the left lower lobe and trace of pericardial effusion. Acute posterior left rib fractures involving the 9th-12th ribs were also noted. Problem List: 1. Acute respiratory distress: Secondary to fall and rib fractures. Also component of atelectasis with possible postobstructive pneumonia. Improved compared to admission but FiO2 requirements up to 5 Lthis morning. At baseline, patient had been instructed to wear 3 L by his safety engineer on a continuous basis but had gotten by with none at rest. 2. Left acute posterior lateral rib fractures from 9-12 ribs: Per patient report, pain is better controlled 3. Probable postobstructive pneumonia: Likely exacerbated by rib fractures and splinting from pain. Possible concern for superimposed infection. 4. Acute COPD exacerbation: Secondary to rib fractures and #3. Improved without evidence of bronchospasms on exam. 5. Hypertension: Blood pressure control reasonable 6. History of hyperlipidemia: Chronically on Lipitor Plan: -Initially treated with ceftriaxone and azithromycin but transitioned to IV Levaquin on 11/07/15. Continue this for now until FiO2 requirements have improved and patient feeling much better. -Hold off on stress dose steroids -Continue pain control with ibuprofen/Tylenol scheduled and suspect could be changed to p.r.n. basistomorrow -Continue scheduled DuoNeb to assist with pulmonary toileting -Resume chronic medications DVT Prophylaxis: Pneumatic Compression Devices and Ambulate every shift Code Status: Full Code Discharge Dispo: home (Pt reports pt's comfortable with him going home and would only be left alone for 3 hours at most) Estimated Disch Date / # of Days until Disch: tomorrow if pain controlled and breathing stable Interval History (Subjective): No cp/dyspnea c/o at rest. Anxious to go home. States pain controlled with prn oxycodone Physical Exam: Vital signs: Temp: 96.9 ??F (36.1 ??C) Temp src: Oral BP: 137/80 mmHg Heart Rate: 103 Resp: 20 SpO2: 93 % O2 Device: Nasal cannula with humidification Oxygen Delivery: 5 LPM Height: 172.7 cm (5' 8) Weight: 55.248 kg (121 lb 12.8 oz) Estimated body mass index is 18.52 kg/(m^2) as calculated from the following: Height as of this encounter: 1.727 m (5' 8). Weight as of this encounter: 55.248 kg (121 lb 12.8 oz). I/O last 3 completed shifts: In: 1020 [P.O.:920; I.V.:100] Out: 2100 [Urine:2100] Filed Vitals: 11/05/15 1815 Weight: 55.248 kg (121 lb 12.8 oz) Constitutional: Awake, alert, cooperative, no apparent distress Respiratory: Diminished at the bases. No wheezes. Some splinting with deep breaths Cardiovascular: Regular rate and rhythm, normal S1 and S2, and no murmur noted Abdomen: Normal bowel sounds, soft, non-distended, non-tender Skin: + ecchymoses along L lower chest/back Neuro: CN 2-12 intact, no weakness, numbness, memory loss Extremities: No edema, normal range of motion HEENT Normocephalic, atraumatic, normal nasal turbinates; oropharynx clear Neck Supple; nl inspection; trachea midline; no thryomegaly Psychiatric: A+O x3. Normal affect Medications: All current medications were reviewed with changes reflected in problem list. Data: All new lab and imaging data was reviewed. Labs: Recent Labs Lab 11/08/15 0610 11/07/15 0703 11/06/15 0852 11/05/15 1456 11/05/15 1449 WBC -- 8.2 9.5 -- 10.1 HGB -- 11.2* 11.6* 17.0 14.9 HCT -- 33.3* 34.3* -- 43.2 MCV -- 105* 105* -- 105* PLT 191 170 167 -- 208 Recent Labs Lab 11/07/15 0703 11/06/15 0852 11/05/15 1740 11/05/15 1456 11/05/15 1449 NA 137 133 -- 136 135 POTASSIUM 4.0 3.9 -- 4.1 4.1 CHLORIDE 104 101 -- 101 102 CO2 26 23 -- -- 24 ANIONGAP 7 9 -- 10 9 GLC 96 126* -- 123* 119* BUN 10 13 -- 19 17 CR 0.65* 0.66 0.73 -- 0.67 GFRESTIMATED >90Non GFR Calc >90Non GFR Calc >90Non GFR Calc >90 >90Non GFR Calc GFRESTBLACK >90African [place] GFR Calc >90African [place] GFR Calc >90African [place] GFR Calc >90 >90African [place] GFR Calc CT 8.6 8.6 -- -- 9.2 Imaging: No results found for this or any previous visit (from the past 24 hour(s)). Star Short MD [phone] Disclaimer: This note consists of symbols derived from keyboarding, dictation and/or voice recognition software. As a result, there may be errors in the script that have gone undetected. Please consider this when interpreting information found in this chart. UNT STRATEGIST Zion Mijares MD - 11/07/2015 5:19 PM CST Reason for stay: Respiratory distress following multiple rib fractures due to fall. Patient has COPDexacerbation and concern for pulmonary infection as well Steve Gutierrez is a 55 year old male patient with h/o COPD admitted with fall that resulted in multiple ribs fractures and respiratory distress . Patient was admitted and treated with pain medication,antibiotic for pulmonary infection, oxygen, and supportive care. #1:acute respiratory failure due to rib fractures ,COPD and concern for pulmonary infection with atelectasis --continue oxygen ,antibiotic and pain medications #2.Fractures of the posterolateral 9th through 12th ribs -Left --continue supportive care ,pain medications and oxygen --Patient may need pain management team evaluation and recommendation if he does not improve in the next one day #3.Left lower lobe mucoid impactions with complete atelectasis left lower lobe --concern for superimposed infection -suspect postobstructive pneumonia --continue abx ,pain medications ,monirtor #4.COPD -acute exacerbation --continue neb ,abx and oxygen --hold steroid for now as he is not wheezing. Disposition -Home with [facility] in the next 1-2 days Lovenox for DVT prophylaxis Past Medical History Diagnosis Date ??? HTN (hypertension) ??? COPD (chronic obstructive pulmonary disease) ??? 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 No Known Allergies Active Problems: Pneumonia Blood pressure 104/75, pulse 104, temperature 97 ??F (36.1 ??C), temperature source Oral, resp. rate20, height 1.727 m (5' 8), weight 55.248 kg (121 lb 12.8 oz), SpO2 95 %. Subjective: Symptoms: He reports shortness of breath, cough and weakness. No malaise, chest pain or anxiety. (Patient is feeling better today but continues to have shortness of breath and requires oxygen.). Diet: Adequate intake. No nausea or vomiting. Activity level: Impaired due to pain. Pain: He complains of pain that is severe. Pain is requiring pain medication. Objective: General Appearance: Ill-appearing and in distress. Vital signs: (most recent): Blood pressure 104/75, pulse 104, temperature 97 ??F (36.1 ??C), temperature source Oral, resp. rate 20, height 1.727 m (5' 8), weight 55.248 kg (121 lb 12.8 oz), SpO2 95 %. (BP 104/75 mmHg Pulse 104 Temp(Src) 97 ??F (36.1 ??C) (Oral) Resp 20 Ht 1.727 m (5' 8) Wt 55.248 kg (121 lb 12.8 oz) BMI 18.52 kg/m2 SpO2 95% ). Output: Producing urine. Lungs: Increased effort. He is in respiratory distress. There are rales and decreased breath sounds.No wheezes. Heart: Normal rate. Regular rhythm. S1 normal and S2 normal. No murmur or gallop. Extremities: Normal range of motion. Neurological: Patient is alert and oriented to person, place and time. Skin: Warm. Abdomen: Abdomen is soft and non-distended. There are no signs of ascites. Hyperactive bowel sounds.There is no abdominal tenderness. Pulses: Distal pulses are intact. Current Medications reviewed All laboratory and imaging data in the past 24 hours reviewed Recent Labs Lab 11/07/15 0703 11/06/15 0852 11/05/15 1456 11/05/15 1449 WBC 8.2 9.5 -- 10.1 HGB 11.2* 11.6* 17.0 14.9 HCT 33.3* 34.3* -- 43.2 MCV 105* 105* -- 105* PLT 170 167 -- 208 No results for input(s): CULT in the last 168 hours. Recent Labs Lab 11/07/15 0703 11/06/15 0852 11/05/15 1740 11/05/15 1456 11/05/15 1449 NA 137 133 -- 136 135 POTASSIUM 4.0 3.9 -- 4.1 4.1 CHLORIDE 104 101 -- 101 102 CO2 26 23 -- -- 24 ANIONGAP 7 9 -- 10 9 GLC 96 126* -- 123* 119* BUN 10 13 -- 19 17 CR 0.65* 0.66 0.73 -- 0.67 GFRESTIMATED >90Non GFR Calc >90Non GFR Calc >90Non GFR Calc >90 >90Non GFR Calc GFRESTBLACK >90African [place] GFR Calc >90African [place] GFR Calc >90African [place] GFR Calc >90 >90African [place] GFR Calc CT 8.6 8.6 -- -- 9.2 Recent Labs Lab 11/07/15 0703 11/06/15 0852 11/05/15 1456 11/05/15 1449 GLC 96 126* 123* 119* Recent Labs Lab 11/05/15 1449 INR 0.90 No results for input(s): TROPONIN, TROPI, TROPR in the last 168 hours. Invalid input(s): TROP, TROPONINIES Recent Results (from the past 48 hour(s)) Chest XR, 1 view PORTABLE Narrative XR CHEST PORT 1 VW 11/05/2015 3:04 PM HISTORY: Chest pain. COMPARISON: 05/03/2015, 02/20/2012 FINDINGS: Minimal scarring or atelectasis at the left lung base. No consolidation, pleural effusion or pneumothorax. Stable heart size. Old left-sided rib injuries. Impression IMPRESSION: No acute abnormality. EDGAR HERNANDEZ MD CT Chest/Abdomen/Pelvis w Contrast Narrative CT CHEST/ABDOMEN/PELVIS WITH CONTRAST 11/05/2015 3:48 PM HISTORY: Tripping and falling on rug two days ago with rib pain. COMPARISON: CT chest, abdomen and pelvis 08/05/2006. TECHNIQUE: Axial images from the thoracic inlet to the symphysis are performed with additional coronal reformatted images. 63 mL of Isovue 370 are given intravenously. FINDINGS: Chest: Emphysema is present. Mild bronchiectatic changes with mucoid impactions right lower lobe are noted. Mucoid impactions are also noted in the left lower lobe with complete atelectasis of the left lower lobe. Trace left pleural effusion is also noted. Findings could indicate an obstructing endobronchial mass in the proximal left lower lobe bronchus. No right pleural fluid or pericardial fluid. Heart is normal in size. Coronary artery calcifications are present. No enlarged lymph nodes. No definite evidence of pneumothorax. Abdomen: The abdominal organs are within normal limits. No evidence of solid abdominal organ injury or laceration. No free intraperitoneal air or ascites. The bowel is normal in caliber without obstruction. Appendix is normal. Aorta is calcified without aneurysm or dissection. Pelvis: The bladder, prostate and rectum are unremarkable. No enlarged pelvic lymph nodes or free fluid. Old healed posterolateral left rib fractures are present. Acute posterior left rib fractures are also present involving the 9th, 10th, 11th and 12th ribs. Degenerative spine changes are present. No aggressive-appearing bone lesions are evident. Impression IMPRESSION: 1. Fractures of the posterolateral 9th through 12th ribs. No evidence of pneumothorax. Small left pleural effusion is present. 2. Left lower lobe mucoid impactions with complete atelectasis left lower lobe. An endobronchial mass not excluded. Followup with bronchoscopy as needed. Mild bronchiectasis right lower lobe with mucoid impactions are also noted without atelectasis. Emphysema. 3. No evidence of solid abdominal organ injury or laceration. No ascites or hemorrhage. NICOLETTE GUTIERRES MD Assessment: Condition: In stable condition. Improving. Plan: Ad emelia activity. Consults: physical therapy. Advance diet as tolerated. Administer medications as ordered. Zion Mijares UNT STRATEGIST Susy Troncoso, RT - 11/07/2015 2:42 PM CST RT- patient remains on 3 LPM nasal cannula with SPO2 90-92%. Patient has diminished breath sounds with some improvement in aeration post nebulizer. Patient is getting Duoneb Q4 as scheduled. Will review MDI usage via spacer with patient per pt request. Susy Troncoso RT 11/07/2015 2:44 PM UNT STRATEGIST Viviane Benedict - 11/07/2015 2:05 PM CST SW received consult for home o2. Patient has O2 at home. SW will continue to follow. TOSHIA Fisher UNT STRATEGIST Zion Mijares MD - 11/07/2015 1:39 PM CST Patient was seen and examined by me today and medical record reviewed.Plan of care was discussed with patient/family and staff. Completed progress note will follow.Please refer to my note for detail progress. Patient is seen and examined by me today and medical record reviewed.Overnight events noted and carediscussed with nursing staff. Interval History/objective Steve Gutierrez feels better today Still with pleuritic chest pain and sob Requires oxygen Lungs diminished air movement No fever Current problem/Assessment: -- Multiple rib fractures -- chest pain -- hypoxia -- atelectasis and concern for pneumonia Recommendations: -- continue pain medications -- change abx to levaquin -- may discharge home tomorrow if pain is controlled Sarah Mae RT - 11/06/2015 8:16 PM CST Pt refusing Advair and stated will have family bring his own meds from home. Advair seal is unbrokenand will be returned to pharmacy by me. Sarah Nino 11/06/2015 Zion Eduardo MD - 11/06/2015 4:53 PM CST Steve Gutierrez is a 55 year old male patient with h/o COPD admitted with fall That resulted in multiple ribs fractures and respiratory distress #1:acute respiratory failure due to rib fractures ,COPD and concern for pulmonary infection with atelectasis --continue oxygen ,antibiotic and pain medications #2.Fractures of the posterolateral 9th through 12th ribs -Left --continue supportive care ,pain medications and oxygen #3.Left lower lobe mucoid impactions with complete atelectasis left lower lobe --concern for superimposed infection -suspect postobstructive pneumonia --continue abx ,pain medications ,monirtor #4.COPD -acute exacerbation --continue neb ,abx and oxygen --hold steroid for now Disposition -Home with [facility] in 1-2 days Lovenox for DVT prophylaxis 1. Fall, initial encounter 2. Closed fracture of multiple ribs of left side, initial encounter 3. Hypoxia 4. Pneumonia of left lower lobe due to infectious organism Past Medical History Diagnosis Date ??? HTN (hypertension) ??? COPD (chronic obstructive pulmonary disease) ??? 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 No Known Allergies Active Problems: Pneumonia Blood pressure 98/60, pulse 81, temperature 97.5 ??F (36.4 ??C), temperature source Oral, resp. rate20, height 1.727 m (5' 8), weight 55.248 kg (121 lb 12.8 oz), SpO2 92 %. Subjective: Symptoms: He reports shortness of breath, cough, chest pain, weakness and anxiety. No malaise. Diet: Adequate intake. No nausea or vomiting. Activity level: Impaired due to pain. Pain: He complains of pain that is severe. Pain is requiring pain medication. Objective: General Appearance: Ill-appearing and in distress. Vital signs: (most recent): Blood pressure 98/60, pulse 81, temperature 97.5 ??F (36.4 ??C), temperature source Oral, resp. rate 20, height 1.727 m (5' 8), weight 55.248 kg (121 lb 12.8 oz), SpO2 92 %. (BP 98/60 mmHg Pulse 81 Temp(Src) 97.5 ??F (36.4 ??C) (Oral) Resp 20 Ht 1.727 m (5' 8) Wt 55.248 kg (121 lb 12.8 oz) BMI 18.52 kg/m2 SpO2 92% ). Output: Producing urine. Lungs: Increased effort. He is in respiratory distress. There are rales and decreased breath sounds. Heart: Normal rate. Regular rhythm. S1 normal and S2 normal. No murmur or gallop. Extremities: Normal range of motion. Neurological: Patient is alert and oriented to person, place and time. Skin: Warm. Abdomen: Abdomen is soft and non-distended. There are no signs of ascites. Hyperactive bowel sounds.There is no abdominal tenderness. Pulses: Distal pulses are intact. Current Medications reviewed All laboratory and imaging data in the past 24 hours reviewed Recent Labs Lab 11/06/15 0852 11/05/15 1456 11/05/15 1449 WBC 9.5 -- 10.1 HGB 11.6* 17.0 14.9 HCT 34.3* -- 43.2 MCV 105* -- 105* PLT 167 -- 208 No results for input(s): CULT in the last 168 hours. Recent Labs Lab 11/06/15 0852 11/05/15 1740 11/05/15 1456 11/05/15 1449 NA 133 -- 136 135 POTASSIUM 3.9 -- 4.1 4.1 CHLORIDE 101 -- 101 102 CO2 23 -- -- 24 ANIONGAP 9 -- 10 9 GLC 126* -- 123* 119* BUN 13 -- 19 17 CR 0.66 0.73 -- 0.67 GFRESTIMATED >90Non GFR Calc >90Non GFR Calc >90 >90Non GFR Calc GFRESTBLACK >90African [place] GFR Calc >90African [place] GFR Calc >90 >90African [place] GFR Calc CT 8.6 -- -- 9.2 Recent Labs Lab 11/06/15 0852 11/05/15 1456 11/05/15 1449 GLC 126* 123* 119* Recent Labs Lab 11/05/15 1449 INR 0.90 No results for input(s): TROPONIN, TROPI, TROPR in the last 168 hours. Invalid input(s): TROP, TROPONINIES Recent Results (from the past 48 hour(s)) Chest XR, 1 view PORTABLE Narrative XR CHEST PORT 1 VW 11/05/2015 3:04 PM HISTORY: Chest pain. COMPARISON: 05/03/2015, 02/20/2012 FINDINGS: Minimal scarring or atelectasis at the left lung base. No consolidation, pleural effusion or pneumothorax. Stable heart size. Old left-sided rib injuries. Impression IMPRESSION: No acute abnormality. EDGAR HERNANDEZ MD CT Chest/Abdomen/Pelvis w Contrast Narrative CT CHEST/ABDOMEN/PELVIS WITH CONTRAST 11/05/2015 3:48 PM HISTORY: Tripping and falling on rug two days ago with rib pain. COMPARISON: CT chest, abdomen and pelvis 08/05/2006. TECHNIQUE: Axial images from the thoracic inlet to the symphysis are performed with additional coronal reformatted images. 63 mL of Isovue 370 are given intravenously. FINDINGS: Chest: Emphysema is present. Mild bronchiectatic changes with mucoid impactions right lower lobe are noted. Mucoid impactions are also noted in the left lower lobe with complete atelectasis of the left lower lobe. Trace left pleural effusion is also noted. Findings could indicate an obstructing endobronchial mass in the proximal left lower lobe bronchus. No right pleural fluid or pericardial fluid. Heart is normal in size. Coronary artery calcifications are present. No enlarged lymph nodes. No definite evidence of pneumothorax. Abdomen: The abdominal organs are within normal limits. No evidence of solid abdominal organ injury or laceration. No free intraperitoneal air or ascites. The bowel is normal in caliber without obstruction. Appendix is normal. Aorta is calcified without aneurysm or dissection. Pelvis: The bladder, prostate and rectum are unremarkable. No enlarged pelvic lymph nodes or free fluid. Old healed posterolateral left rib fractures are present. Acute posterior left rib fractures are also present involving the 9th, 10th, 11th and 12th ribs. Degenerative spine changes are present. No aggressive-appearing bone lesions are evident. Impression IMPRESSION: 1. Fractures of the posterolateral 9th through 12th ribs. No evidence of pneumothorax. Small left pleural effusion is present. 2. Left lower lobe mucoid impactions with complete atelectasis left lower lobe. An endobronchial mass not excluded. Followup with bronchoscopy as needed. Mild bronchiectasis right lower lobe with mucoid impactions are also noted without atelectasis. Emphysema. 3. No evidence of solid abdominal organ injury or laceration. No ascites or hemorrhage. NICOLETTE GUTIERRES MD Assessment: Condition: Improving. Plan: Ad emelia activity. Consults: physical therapy. Advance diet as tolerated. Administer medications as ordered. Zion Mijares 11/06/2015 UNT STRATEGIST Caitlyn Hamilton RT - 11/05/2015 9:55 PM CST [facility] Date: 11/05/15 Admission Dx: Fall, possible pna Pulmonary History: COPD Home Nebulizer/MDI Use: Breo Ellipta, Nebs Home Oxygen: 3L prn Acuity Level (RCAT flow sheet): 2 Aerosol Therapy initiated: Duoneb Q4, Alb Q6 prn, Refusing advair, will have bring in meds. Pulmonary Hygiene initiated: Cough and deep breathing, Acapella Volume Expansion initiated: Incentive spirometer per nursing Current Oxygen Requirements: 6L Current SpO2: 92% Re-evaluation date: 11/08/15 Patient Education: Talked with patient about inhalers and bronchodilators and what the acapella therapy is for. See RT Assessments flow sheet for patient assessment scoring and Acuity Level Details. UNT STRATEGIST documented in this encounter H&P Notes Mae Villatoro MD - 11/05/2015 6:17 PM CST PRIMARY CARE PHYSICIAN: [facility] in [place]. CHIEF COMPLAINT: Increasing shortness of breath and cough along with left lateral rib pain after a fall 2 days prior. HISTORY OF PRESENT ILLNESS: Steve Gutierrez is a 55-year-old male with a history of chronic lung disease and emphysema, hypertension, cigarette smoking, prior CVA with mild residual right-sided weakness who presented through the emergency room with increasing shortness of breath and cough beginning shortly after an accidental fall onto his left ribs 2 days ago. Steve is disabled because of his stroke 2 years ago; he only needs to use a cane when walking on unsteady ground. He has significant emphysema and gets short of breath on walking 100 yards, but he is able to go to his mailbox and back, which is 200 yards and go outside and feed the chickens. He normally does not need oxygen with activity or at rest. Two days ago, he tripped on a rug and fell towards his left side striking a small planter cabinet with a [place] tree on it. He had severe left lateral rib pain for which he has been mg of Motrin q.4- 6h. and codeine once or twice. The following morning after the fall, he began fe eling more short of breath and had increased congested coughing. He was much more short of breath just with movement. He placed himself back on his oxygen and came in for evaluation. His chest CT showsemphysema. He also has mild bronchiectatic changes with mucoid impactions in the right lower lobe, which is also present in the left lower lobe and there is atelectasis of the entire left lower lobe with a trace left pleural effusion. He does have acute posterior left rib fractures involving the ninth, tenth, eleventh, and twelfth ribs. His white count is 10,000 and he has a congested cough, but clear mucus and has had no fevers. PAST MEDICAL HISTORY: 1. Accidental fall in 2005 with multiple left rib fractures involving the fifth, sixth, seventh, andeighth posterolaterally along with a left lower lobe pneumonia. 2. Hypertension for the past 15 years. 3. Longstanding cigarette smoking, initially heavy, smoking a pack and a half a day, now smoking 10 cigarettes a day. 4. Hospitalization for COPD exacerbation in 02/2012. 5. Hospitalization 04/2015 with community-acquired pneumonia with the lateral lower lobe infiltrate and acute respiratory failure initially treated with BiPAP. 6. History of a CVA 2-1/2 years ago, details are not clear at this time. The patient states that he has residual right-sided weakness, mostly a little gait instability when walking on unlevel ground for which he uses a cane. REVIEW OF SYSTEMS: The patient states that he has been disabled for about 2 years, mainly because ofthe CVA. His has quit smoking and he is committed to try one more time; he says he has tried many, many times and the longest he has been able to quit this about a month. He does not use oxygen, but does have some home O2 available. He has prescriptions for nebulizers, but does not usually use them. He can walk 100 yards before getting short of breath and then he stops and rests. He has no episodes of chest discomfort, no rapid or irregular heart rate. No claudication, no leg swelling. His weight has been stable. His appetite has been good. He has not had any fevers and his sputum is clear. Otherwise negative per 10-system review. PHYSICAL EXAMINATION: GENERAL: Interactive and conversant, very thin, looks much older than stated age. Comfortable at rest using some accessory muscles and is on nasal O2 at 3 liters. VITAL SIGNS: Blood pressure is 118/82 with a pulse of 102, respirations 22 and he is afebrile. HEENT: Mucous membranes are moist. HEENT exam is normal. NECK: Jugular venous pressure is not elevated. Carotid upstroke and volume are normal. LUNGS: He has bronchial breath sounds in the left base, scattered rales in the right base. No wheezing. CARDIOVASCULAR: Heart sounds are normal without significant murmur. RESPIRATORY: His respirations are not labored, although he is using some accessory respiratory muscles and has a mildly increased respiratory rate. His cough is congested, but nonproductive. ABDOMEN: Flat. He is underweight. No hepatosplenomegaly. He has active bowel sounds. EXTREMITIES: He has good peripheral pulses and no edema. SKIN: Without lesions or rashes. He has marked discomfort with light touch over the posterolateral left ribs. There is a bruise and ecchymosis in the left flank, lateral flank area. GENITOURINARY: He is voiding without difficulty and has not had any dysuria, no nausea, vomiting or diarrhea. MUSCULOSKELETAL: No joint inflammation. NEUROLOGIC: He does not have any detectable focal weakness or sensory deficits. He does have a resting tremor. PSYCHOLOGICAL: He is coping well. 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 Longstanding cigarette smoker up to a pack and a half a day, more recently 5-10 cigarettes a day. He does have 2 cans of beer about every week. FAMILY HISTORY: Sister and father had cancer, no history of coronary artery disease. MEDICATIONS ON ADMISSION: 1. Albuterol inhaler 2 puffs every 4 hours as needed for shortness of breath. 2. Amlodipine 10 mg daily. 3. Aspirin 325 daily. 4. Tenormin 50 mg daily. 5. Lipitor 50 at bedtime. 6. Symbicort 2 puffs twice a day. 7. Vitamin D3 1000 units at bedtime. 8. There is another type of fluticasone inhaler 1 puff daily. 9. DuoNeb 4 times a day as needed for shortness of breath. 10. Lisinopril 20 at bedtime. 11. inhalation capsule 62.5 mcg daily. ALLERGIES: There are no known drug allergies. LABORATORY RESULTS: Sodium 136, potassium 4.1, creatinine is 0.8, bicarbonate is 24. White count is 10.1, hemoglobin is 17. Chest x-ray shows some atelectasis at the left lung base and shows the old left-sided rib fractures. Chest CT shows emphysema and mild bronchiectatic changes with mucoid impactions in the right lower lobe. There is also a mucoid impactions in the left lower lobe with complete atelectasis of the left lowerlobe and a trace pericardial effusion. There are acute posterior left rib fractures involving the ninth, tenth, eleventh, and twelfth ribs. IN SUMMARY: Steve Gutierrez is a 55-year-old male with emphysema and chronic lung disease, longstanding cigarette smoker, hypertension, prior CVA with mild residual right-sided weakness who presents with increasing shortness of breath and cough after an accidental fall 2 days ago, which resulted in posterior lower left rib fractures.He has had significant pain and decreased inspiratory volumes and likely has mucous plugging of the airways to the left lower lobe. This has lead to hypoxia, V/Q mismatch and possible superimposed pneumonia. PLAN 1. Admit as an inpatient. 2. Treat the LLL pneumonia with IV ceftriaxone and azithromycin 500 mg daily. 3. Tylenol 975 mg and motrin 600 mg q 8 hours. 4. With oxycodone and or IV dilaudid for additional pain control. 5. Duo nebulizer QID and albuterol neb prn. 6. Incentive spirometry and consider mucomyst nebulizer to help open the plugged airways. 7. Nasal O2 2 to 4 LPM. 8. He absolutely needs to stop smoking. He has attempted at least 10 times and lasted as long as onemonth. His has just quit and he is more committed than ever. Will use nicotine patch while hereand he wants chantix as an outpatient. 9. Continue his atenolol, norvasc and lisinopril for BP control. MAE VILLATORO MD MT: [id number] Name: STEVE GUTIERREZ MRN: [id number] Account: [id number] : 1960 Admitted: [id number] Document: [id number] cc: [facility] UNT STRATEGIST documented in this encounter Consult Notes Lakshmi Willis RD, LD - 11/06/2015 9:55 AM CST CLINICAL NUTRITION SERVICES - ASSESSMENT NOTE REASON FOR ASSESSMENT Steve Gutierrez is a 55 year old male seen by the dietitian for positive nutrition risk screen - Unintentional weight loss of 10# or more in past 2 months NUTRITION HISTORY - Information obtained from patient. Hx of lung disease, emphysema, prior CVA - Patient is on a regular diet at home. - Typical food/fluid intake [employer] TECH[employer]ICIAN has been decreased over last 5 days 2/ fall, labored breathing and pain. Breakfast: 2 eggs and toast or bagel with cream cheese, coffee Snack: fruit Lunch: sandwich or hamburger, likes red meat Dinner: varies, pasta or steak for example Drinks whole milk, does the grocery shopping and meal prep. States snacks are hard to keep in the house - i have to lock them up so kids don't consume. - Supplements at home: Previously taking 1 Ensure per day, has not had in 2 weeks / cost - Food allergies/intolerances: NKFA CURRENT NUTRITION ORDERS - Diet:Regular - Supplement: None - Intake/Tolerance: Per flow sheet review, 100% intake for one documented meal. Patient states his pain and breathing are better controlled so able to improve intake - Factors affecting nutrition intake include: none currently PHYSICAL FINDINGS Observed Fat wasting: ?? Orbital - fat pads - hollow look, depressions ?? Upper arm region / triceps - ample fat visibly lacking Muscle wasting: Gross atrophy ?? [place] - hollowing ?? Clavicle - protruding bone ?? Pectoralis / deltoid -protrusion prominent Obtained from Chart/Interdisciplinary Team BM: None noted since admit Very thin, underweight Perez nutrition score: 3 ANTHROPOMETRICS Height: 5' 8 Weight: 55.2 kg Body mass index is 18.52 kg/(m^2).. IBW: 64.2 kg % IBW: 86% Weight History: Patient states he weighed 126# on Sunday, 121# on admit (4% weight loss in <1 week) Wt Readings from Last 10 Encounters: 11/05/15 55.248 kg (121 lb 12.8 oz) 04/30/15 57.8 kg (127 lb 6.8 oz) 02/20/12 55.157 kg (121 lb 9.6 oz) LABS Labs reviewed MEDICATIONS Medications reviewed, IVF at 100 mL/hr Dosing Weight 55.2 kg admit weight ASSESSED NUTRITION NEEDS: Estimated Energy Needs: 9378-9324 kcals (35-40 Kcal/Kg) Justification: borderline underweight Estimated Protein Needs: 83-99 grams protein (1.5-1.8 g pro/Kg) Justification: Repletion Estimated Fluid Needs: 1813-0260 mL (1 mL/Kcal) Justification: maintenance NUTRITION STATUS VALIDATION Weight Status:Normal BMI (18.52 - borderline underweight) MALNUTRITION: % Intake:<50% for > 5 days - acute illness severe malnutrition % Weight Loss:>2% in 1 week - acute illness severe malnutrition Subcutaneous Fat Loss:Severe - chronic illness severe malnutrition Muscle Loss:Severe - chronic illness severe malnutrition Fluid/Edema:None noted Severe malnutrition in the context of acute on chronic illness NUTRITION DIAGNOSIS: Malnutrition related to inadequate oral intake and increased metabolic needs 2/2 lung disease and emphysema as evidenced by BMI of 18.52, weight loss of 4% in <1 week with severe fat and muscle wasting, intake of <50% x 5+ days. INTERVENTIONS Recommendations / Nutrition Prescription Change to high calorie/high protein diet Aggressive use of oral nutrition supplements to increase calorie and protein intake Multivitamin+Mineral (contraindicated due to medication interaction) Implementation Nutrition education: Provided nutrition education on role of adequate calories and protein to maintain LBM, prevent further weight loss. Discussed small, frequent meals and source of protein at each meal/snack with snacks at bedside. Provided handouts Tips to increase calories in your diet, Tips toincrease protein in your diet and six small meals per day high calorie high protein recipes. Patient expressed understanding. Discussed lower cost supplement options (milk powder, [place] Breakfast Essentials). Diet order: changed as noted above Medical food supplement: Ensure TID with meals, Plus2 shake BID b/w meals Collaboration and Referral of care: Left sticky note re: can a prescription be provided for 1 Ensureper day at discharge? Goals Patient to consume >/= 75% of meals TID and >/=3 high protein supplement per day Weight >/= 55.2 kg Follow up/Monitoring: Weight - trends Food, fluid and supplement intake - Monitor meal intake for adequacy and acceptance/consumption of Ensure, Plus2 shakes CHARLIE Fowler 3rd floor/ICU: [phone] All other floors: [phone] Weekend/holiday: [phone] UNT STRATEGIST documented in this encounter ED Notes Juan M Davis MD - 11/05/2015 4:53 PM CST Emergency Department Attending Supervision Note 11/05/2015 4:53 PM I evaluated this patient in conjunction with Shelby Simon PA-C Briefly, the patient presented with Fall, L chestwall and flank pain, Dyspnea 55y M COPD prn home oxygen, here after mechanical fall at home 2 days ago. Direct impact injury L side. No concern head/neck injury. Primary concern given acute on chronic hypoxia, tacypnea is for Ptx,Hemothorax, also in ddx is intrabdominal solid organ injury. On my exam, HEENT: AT/NC mmm Neck: supple, painless ROM CV: ppi, regular Resp: tachypnea, lung sound clear ant bilaterally, coarse L base, + TTP L lower chestwall, no crepitus maximal mid axillary to posterior axillary line Abd: soft, + TTP L flank Ext: no peripheral edema, no bony ttp on skeletal survey, no palpable deformities, no major joint effusions, full ROM major joints Skin: warm dry well perfused Neuro: Alert, no gross motor or sensory deficits My impression is Multiple Rib fractures, + assoc effusion, no Pneumo/hemo thorax, LLL consolidation ? Chronicity, at risk for pneumonia and gave abx here in ED. In ddx is endobronchial mass and patient aware need for short term f/u plus or minus bronchoscopy. Will admit for pulmonary toilet, pain control Diagnosis ICD-10-CM 1. Fall, initial encounter W19.XXXA 2. Closed fracture of multiple ribs of left side, initial encounter S22.42XA 3. Hypoxia R09.02 4. Pneumonia of left lower lobe due to infectious organism J18.9 Juan M Villareal MD 11/05/15 1658 UNT STRATEGIST Shelby Simon PA-C - 11/05/2015 2:29 PM CST History Chief Complaint: Rib Pain FEDERICO Gutierrez is a 55 year old male with a history of COPD who presents to the emergency department today for evaluation of rib pain. The patient reports tripping on a rug and falling 2 days ago, striking his left lower rib cage on the corner of a wooden box; he did not strike his head or neck. He continues to have 9/10 rib pain that is worse with deep breaths. Tylenol and ibuprofen at home has nothelped with his pain. He was seen in clinic prior to arrival and sent here for further evaluation oflow oxygen saturation and possible cracked ribs. He additionally has a painful cough and some shortness of breath. 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 He does take a blood thinner for history of stroke. He does not have any heart problems, or any other lung problems aside from COPD. The patient denies chest pain, abdominal pain, hematuria, and he has been eating and drinking well. Allergies: No Known Drug Allergies Medications: albuterol (PROAIR HFA, PROVENTIL HFA, VENTOLIN HFA) 108 (90 BASE) MCG/ACT inhaler budesonide-formoterol (SYMBICORT) 160-4.5 MCG/ACT inhaler ATORVASTATIN CALCIUM PO ASPIRIN PO Cholecalciferol (VITAMIN D3 PO) lisinopril (PRINIVIL,ZESTRIL) 20 MG tablet amLODIPine (NORVASC) 10 MG tablet atenolol (TENORMIN) 50 MG tablet Past Medical History: HTN COPD CVA Past Surgical History: Surgical history reviewed. No pertinent surgical history. Family / Social History: Father and sister: Cancer Marital Status: [2] Tobacco: Positive Alcohol: Positive Review of Systems Respiratory: Positive for cough and shortness of breath. Cardiovascular: Negative for chest pain. Gastrointestinal: Negative for abdominal pain. Genitourinary: Negative for hematuria. Musculoskeletal: Rib pain. All other systems reviewed and are negative. Physical Exam First Vitals: BP: 118/82 mmHg Pulse: 101 Temp: 98.2 ??F (36.8 ??C) Resp: 22 SpO2: (!) 86 % Physical Exam Gen: Resting uncomfortably on the exam table. HEENT: No rhinorrhea. Conjunctiva clear. Neck: Supple Lungs: Hypoxic on the monitor. Crackles throughout the L lung field with no breath sounds auscultated to the L base. R lung gerard without crackles and auscultated in all gerard. Obvious ecchymosis to the L posterolateral chest wall with associated tenderness to palpation. CV: Normal S1 and S2. Regular rate and rhythm. No murmurs, rubs, or gallops. Abd: Bowel sounds present. Significant ecchymosis to the left flank with associated tenderness to palpation. Abdomen otherwise non-tender. Ext: Moving all extremities spontaneously. Skin: Warm, dry, well perfused. See above. Neuro: Alert. No gross motor or sensory deficits Psych: Normal mood, normal affect Emergency Department Course EC11/05/15 14:39 Indication: Rib pain/SOB Findings: normal sinus rhythm Right atrial enlargement Borderline ECG. Ventricular rate: 97 bpm TX interval: 164 ms QRS duration: 82 ms QT/QTc: 352/447 ms R-Cranston: 69 ECG read at 16:31 by CAPO Carpenter, in conjunction with Dr. Yee. Imaging: Radiographic findings were communicated with the patient who voiced understanding of the findings. Chest X-Ray. 2 Views: No acute abnormality. Final reading per radiology. CT Chest Abdomen Pelvis with contrast: 1. Fractures of the posterolateral 9th through 12th ribs. No evidence of pneumothorax. Small left pleural effusion is present. 2. Left lower lobe mucoid impactions with complete atelectasis left lower lobe. An endobronchial mass not excluded. Followup with bronchoscopy as needed. Mild bronchiectasis right lower lobe with mucoid impactions are also noted without atelectasis. Emphysema. 3. No evidence of solid abdominal organ injury or laceration. No ascites or hemorrhage. Preliminary reading per radiology. Laboratory: ISTAT: Glucose 123 (high), o/w WNL. Creatinine 0.8. CBC: WNL. (WBC 10.1, HGB 14.9, PLT 208) BMP: Glucose 119 (high), o/w WNL. (Creatinine 0.67) Creatinine: Creatinine 0.73, GFR >90 INR: 0.90 PTT: 29 ABO/Rh: O Pos, negative antibody Interventions: 15:33 - Normal saline 56mL IV 15:55 - Dilaudid 0.5 mg IV 16:46 - Rocephin 1 g to NS 100 mL. 16:45 - Zithromax 500 mg PO Emergency Department Course: Nursing notes and vitals reviewed. I performed an exam of the patient as documented above. The patient was placed on financial administrative assistant and continuous pulse oximetry. The patient was given oxygen via nasal cannula. EKG was done. The above imaging workup was performed. The above laboratory workup was performed. A peripheral IV was established. The patient received the above interventions. Patient who consents to admission. Dr. Davis discussed the patient with Dr. Villatoro, who will admit the patient to a med/surg bed for further monitoring, evaluation, and treatment. Impression & Plan Medical Decision Making: The patient is a 55 year old male presenting to the ED for evaluation of hypoxia and rib pain. The patient has a history of COPD, however he is having significant hypoxia and pain after a fall on Sunday. He went to be evaluated at a clinic prior to arrival when he was hypoxic with significant amount of pain, so he was directed here for evaluation. He is hypoxic and appears very uncomfortable. Physical exam reveals a large area of ecchymosis noted to his left flank to the inferior aspect of his left lateral chest wall and low back. He has significant tenderness to palpation in this area. I do notauscultate any breath sounds in the left base. His abdomen is non-tender upon my evaluation aside from the area of ecchymosis to the flank. Oxygen was placed immediately. He continued to be borderline hypoxic despite oxygen therapy. Dr. JR Davis evaluated this patient in conjunction with me; he performed a FAST exam, revealing fluid around the left lung, no intra-abdominal fluid noted. Portable chest x-ray had been evaluated and reveals no acute abnormality. Considering his significant pain, ecchymosis, and hypoxia, a CT scan of the chest/abdomen/pelvis were evaluated, revealing fractures of the posteriorlateral 9-12th ribs with no evidence of pneumothorax and a small left pleural effusion, atelectasis to the left lower lobe, emphysema, and no evidence of solid organ injury or laceration. BMP isunremarkable. Baseline coags were evaluated, CBC shows no evidence of anemia with a hemoglobin of 14.9. The patient was provided with pain control, as well as oxygen therapy throughout his stay. I certainly think it is warranted to keep him as an outpatient in the hospital to control his pain efficiently, and he is at high risk of developing pneumonia. Dr. JR Davis spoke with the admitting provider for admission. I certainly think admission is appropriate considering his high risk for pneumonia, hypoxia, and he will likely need sufficient pain control. The patient is admitted to Dr. Villatoro. Diagnosis: ICD-10-CM 1. Fall, initial encounter W19.XXXA 2. Closed fracture of multiple ribs of left side, initial encounter S22.42XA 3. Hypoxia R09.02 4. Pneumonia of left lower lobe due to infectious organism J18.9 Disposition: Admitted. Plan as outlined above. Scribe Disclosure: I, Micky Pennyn, am serving as a scribe at 2:31 PM on 11/05/2015 to document services personally performed by Shelby Simon PA-C, based on my observations and the provider's statements to me. [facility] EM[facility]GENC[facility] Shelby Simon PA-C 11/05/151947 UNT STRATEGIST Associated attestation - Juan M Davis MD - 11/05/2015 7:57 PM ACCOUNT STRATEGIST The documentation recorded by the scribe accurately reflects the services I personally performed andthe decisions made by me. See my separate APC supervision note Hattie Marquez RN - 11/05/2015 2:28 PM CST Patient placed on 4L via NC. UNT STRATEGIST Hattie Marquez RN - 11/05/2015 2:24 PM CST Patient fell 2 days ago and landed on left lower rib cage, pain 9/10 hurts to take deep breaths. Patient has COPD and is usually on 3L O2 at home. Patient on blood thinner for previous stroke. Patient sent from clinic for further evaluation of O2 saturation and possible cracked ribs. UNT STRATEGIST documented in this encounter Miscellaneous Notes Treatment Plan - Haider Bill RT - 11/09/2015 9:36 AM CST [facility] Date: 11/09/15 Admission Dx: Fall with rib fractures Pulmonary History: COPD Home Nebulizer/MDI Use: Duoneb Q6 prn, Alb Q4 prn, Incruse Ellipta, Breo, Symbicort BID Home Oxygen: 3L prn Acuity Level (RCAT flow sheet): 3 Aerosol Therapy initiated: Duoneb QID, Alb Q6 prn, Refusing Advair, will have bring in meds. Pulmonary Hygiene initiated: Cough and deep breathing techniques & Acapella Volume Expansion initiated: Incentive spirometer Current Oxygen Requirements: 3L Current SpO2: 96% Re-evaluation date:11/12/15 Patient Education: Education was performed with the patient in regards to indications/benefits and possible side effects of bronchodilators and the use of his inhalers and Acapella and IS. Will continue to do education with patient. See RT Assessments flow sheet for patient assessment scoring and Acuity Level Details. Vital signs: Temp: 97.1 ??F (36.2 ??C) Temp src: Oral BP: 102/60 mmHg Pulse: 96 Heart Rate: 93 Resp: 18 SpO2: 94 % O2 Device: Nasal cannula with humidification Oxygen Delivery: 3 LPM Height: 172.7 cm (5' 7.99) Weight: 55.248 kg (121 lb 12.8 oz) Estimated body mass index is 18.52 kg/(m^2) as calculated from the following: Height as of this encounter: 1.727 m (5' 7.99). Weight as of this encounter: 55.248 kg (121 lb 12.8 oz). PAST MEDICAL HISTORY: Past Medical History Diagnosis Date ??? HTN (hypertension) ??? COPD (chronic obstructive pulmonary disease) ??? 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 FAMILY HISTORY: Family History Problem Relation Age of Onset ??? Cancer Father ??? Cancer Sister SOCIAL HISTORY: History Substance Use Topics ??? Smoking status: Current Every Day Smoker -- 1.00 packs/day for 28 years ??? Smokeless tobacco: Not on file ??? Alcohol Use: 1.0 oz/week 2 Cans of beer per week Prior to Admission medications Medication Sig Last Dose Taking? Auth Provider vitamin D (ERGOCALCIFEROL) 22363 UNIT capsule Take 50,000 Units by mouth once a week Past Week at Unknown time Yes Dummy, Bfp User ipratropium - albuterol 0.5 mg/2.5 mg/3 mL (DUONEB) 0.5-2.5 (3) MG/3ML nebulization Take 1 vial by nebulization every 6 hours as needed for shortness of breath / dyspnea or wheezing Past Week at Unknown time Yes Dummy, Bfp User umeclidinium bromide (INCRUSE ELLIPTA) 62.5 MCG/INH inhalation capsule Inhale 62.5 mcg into the lungs daily 11/05/2015 at Unknown time Yes Dummy, Bfp User fluticasone - vilanterol (BREO ELLIPTA) 100-25 MCG/INH oral inhaler Inhale 1 puff into the lungs daily 11/05/2015 at Unknown time Yes Dummy, Bfp User albuterol (PROAIR HFA, PROVENTIL HFA, VENTOLIN HFA) 108 (90 BASE) MCG/ACT inhaler Inhale 2 puffs into the lungs every 4 hours as needed for shortness of breath / dyspnea or wheezing Past Week at Unknown time Yes Andrews Stanley MD ASPIRIN PO Take 81 mg by mouth daily Past Week at Unknown time Yes Reported, Patient lisinopril (PRINIVIL,ZESTRIL) 20 MG tablet Take 20 mg by mouth At Bedtime 11/05/2015 at Unknown timeYes Dummy, Bfp User amLODIPine (NORVASC) 10 MG tablet Take 10 mg by mouth At Bedtime 11/05/2015 at Unknown time Yes Dummy, Bfp User atenolol (TENORMIN) 50 MG tablet Take 25 mg by mouth daily 11/05/2015 at Unknown time Yes Dummy, BfpUser budesonide-formoterol (SYMBICORT) 160-4.5 MCG/ACT inhaler Inhale 2 puffs into the lungs 2 times daily Unknown at Unknown time Andrews Stanley MD ATORVASTATIN CALCIUM PO Take 40 mg by mouth At Bedtime Unknown at Unknown time Reported, Patient Haider Bill RT 11/09/2015 UNT STRATEGIST Plan of Care - Radha De La Rosa RN - 11/08/2015 10:42 PM CST Problem: Goal Outcome Summary Goal: Goal Outcome Summary Outcome: Improving VS stable, afebrile. Up w/ assist x1 and walker. Ambulated hallway x1 this shift. Passing flatus-no BM. BS active/audible x4. Pain rated a 6/10, oxy x2 this shift. Breathing improving was able tolerateRA at rest for short period, O2 sats maintained at 93% at this time. Plan is for d/c home tomorrow. Will continue to provide supportive care until d/c. UNT STRATEGIST Plan of Care - Katelin Beltran RN - 11/08/2015 3:10 PM CST Problem: Goal Outcome Summary Goal: Goal Outcome Summary Outcome: Improving Ambulatory Status: Pt up with SBA. Ambulated in [place] x 1. VS: Stable. Afebrile. 5L O2 NC initially- weaned down to 3L O2 NC- pt uses 3L PRN at home. Pain: 5-7/10 in left ribs- oxycodone 10mg given x 2. Resp: LS diminished. BEARD. GI: Denies nausea. Fair appetite and on high calorie/high protein diet. BS hypoactive. Passing flatus. Last BM 11/03- miralax given. : Voiding adequate amounts without difficulty. Skin: Ecchymosis to left flank. Tx: IV levaquin Disposition: Possibly d/c home tomorrow? UNT STRATEGIST Plan of Care - Arlyn Olivas RN - 11/08/2015 6:17 AM CST Problem: Goal Outcome Summary Goal: Goal Outcome Summary Outcome: Improving VSS, lungs diminished, sats in low-mid 90s on 5 LPM, bowels active and audible x4, last BM 11/03/15.IV saline locked, high ct high protein diet, up with SBA with the walker. Pt complained of nasal congestion and dryness, so ocean nasal spray was ordered and administered. C/O rib/back pain, given Oxycodone x1. UNT STRATEGIST Plan of Care - Marisol Abarca RN - 11/07/2015 10:21 PM CST Problem: Goal Outcome Summary Goal: Goal Outcome Summary Outcome: No Change VSS, O2 sats 94-95 on 3LPM via NC. Reports dyspnea on exertion, comfortable at rest. Bibasiliar LS coarse. Rib pain 6-7/10 with movement, given oxy x2 + scheduled Tylenol, utilized ketoprofen x2 + ice.Extensive bruising. BS hypoactive. LBM 12/16, given scheduled Senna. Offered pt PRN Miralax, declines stating, Maybe I should do that in the morning instead. UNT STRATEGIST Plan of Care - Chastity Rodgers RN - 11/07/2015 1:05 PM CST Problem: Goal Outcome Summary Goal: Goal Outcome Summary Outcome: Improving brandon PO well, up with SBA, voiding in good amts, SOB on exertion, weaned Oxygen from 5 liters to 3 liters per nasal cannula, pain tolerable with scheduled Tylenol and Ibuprofen and PRN Oxycodone. Significant healing bruising to left flank/back area where originally fell. IV antibiotics of Rocephin and Zithromax continue UNT STRATEGIST Plan of Care - Veronica Pacheco RN - 11/07/2015 6:40 AM CST Problem: Pneumonia (Adult) Goal: Signs and Symptoms of Listed Potential Problems Will be Absent or Manageable (Pneumonia) Signs and symptoms of listed potential problems will be absent or manageable by discharge/transitionof care (reference Pneumonia (Adult) CPG). Outcome: Improving VSS, HR tachy after nebs. Pt reports 3-8/10 L sided rib pain, controlled with Oxy x1 and scheduled Tylenol & Ibuprofen. Overall breathing is improved, still some dyspnea on exertion. Lung sounds diminished and coarse. Pt reports congested cough, productive at times. Tolerating high ct/protein diet, BS hypoactive, reporting constipation, will try Miralax today. Pt up with SBA, voiding fine. Social work consult for resuming home O2/discharge needs. UNT STRATEGIST Plan of Care - Cynthia Clemons RN - 11/06/2015 10:50 PM CST Problem: Goal Outcome Summary Goal: Goal Outcome Summary Outcome: Improving Sats 90-93% on 5 L nasal cannula. Ambulated halls with SBA and walker. Sats 86% after walk but recovered quickly. SOB on exertion. Large bruising over left ribs. Oxycodone given x2 for rib pain. Lungs diminished with exp wheezing. Voiding adequately. Fair appetite. Saline locked. VSS. UNT STRATEGIST Plan of Care - Amy Gonzalez RN - 11/06/2015 4:07 PM CST Problem: Goal Outcome Summary Goal: Goal Outcome Summary Outcome: Improving Medicated x 2 for pain. Congested cough at tyimes, O2 at 5 liters. Nebs scheduled and IV abx. UNT STRATEGIST Pharmacy-Admission Medication History - Alejandro Loretta, [facility] - 11/06/2015 9:50 AM CST Admission medication history interview status for this patient is complete. See [facility] admission navigator for allergy information, prior to admission medications and immunization status. 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 Unknown if patient is still taking atorvastatin because he is a couple weeks late in renewing - same with symbicort, everything else confirmed from [facility] Medication reconciliation/reorder completed by provider prior to medication history? Yes Prior to Admission medications Medication Sig Last Dose Taking? Auth Provider vitamin D (ERGOCALCIFEROL) 44281 UNIT capsule Take 50,000 Units by mouth once a week Past Week at Unknown time Yes Dummy, Bfp User ipratropium - albuterol 0.5 mg/2.5 mg/3 mL (DUONEB) 0.5-2.5 (3) MG/3ML nebulization Take 1 vial by nebulization every 6 hours as needed for shortness of breath / dyspnea or wheezing Past Week at Unknown time Yes Dummy, Bfp User umeclidinium bromide (INCRUSE ELLIPTA) 62.5 MCG/INH inhalation capsule Inhale 62.5 mcg into the lungs daily 11/05/2015 at Unknown time Yes Dummy, Bfp User fluticasone - vilanterol (BREO ELLIPTA) 100-25 MCG/INH oral inhaler Inhale 1 puff into the lungs daily 11/05/2015 at Unknown time Yes Dummy, Bfp User albuterol (PROAIR HFA, PROVENTIL HFA, VENTOLIN HFA) 108 (90 BASE) MCG/ACT inhaler Inhale 2 puffs into the lungs every 4 hours as needed for shortness of breath / dyspnea or wheezing Past Week at Unknown time Yes Andrews Stanley MD ASPIRIN PO Take 81 mg by mouth daily Past Week at Unknown time Yes Reported, Patient lisinopril (PRINIVIL,ZESTRIL) 20 MG tablet Take 20 mg by mouth At Bedtime 11/05/2015 at Unknown timeYes Dummy, Bfp User amLODIPine (NORVASC) 10 MG tablet Take 10 mg by mouth At Bedtime 11/05/2015 at Unknown time Yes Dummy, Bfp User atenolol (TENORMIN) 50 MG tablet Take 25 mg by mouth daily 11/05/2015 at Unknown time Yes Dummy, BfpUser budesonide-formoterol (SYMBICORT) 160-4.5 MCG/ACT inhaler Inhale 2 puffs into the lungs 2 times daily Unknown at Unknown time Andrews Stanley MD ATORVASTATIN CALCIUM PO Take 40 mg by mouth At Bedtime Unknown at Unknown time Reported, Patient UNT STRATEGIST Associated attestation - Courtney Martin RPH - 11/06/2015 12:24 PM ACCOUNT STRATEGIST Medication reconciliation completed by science intern. Per [facility] pharmacy, patient last filled Symbicort inhaler in July 2015. Plan of Care - Arlyn Olivas RN - 11/06/2015 6:19 AM CST Problem: Goal Outcome Summary Goal: Goal Outcome Summary Outcome: No Change VSS, O2 sats 91% on 5 LPM, ronchi heard during bilateral lung auscultation, bowels active and audible x4, last BM 11/03/15. Regular diet, up with SBA. Pt C/O pain in left ribs, given scheduled Tylenol and IBUProfen, and PRN Oxycodone x2. Pt reports inability to sleep, given Ambien x1. UNT STRATEGIST Plan of Care - Marisol Abarca RN - 11/05/2015 10:20 PM CST Problem: Goal Outcome Summary Goal: Goal Outcome Summary Outcome: No Change Pt admitted to unit this evening about 1900. VSS, c/o pain to L rib area, 10/10 with movement, 2/10 at rest. Given PRN oxycodone x1. O2 sats 90% on 4LPM. Reports occasional O2 us at home, 3LPM but not consistently. Reports productive cough with green sputum. Placed on droplet precaution for potential PNA. Pt reports generalized weakness related to poor oral intake due to SOB and dyspnea. LBM 11/03 - pt states he took a couple pain meds at home, which plugs him up. BS hypoactive, denies nausea. Given scheduled Senna. UNT STRATEGIST documented in this encounter Plan of Treatment Not on filedocumented as of this encounter Procedures Procedure Name Priority Date/Time Associated Comments Diagnosis FLUTTER VALVE Routine 11/09/2015 12:05 AM ACCOUNT STRATEGIST FLUTTER VALVE Routine 11/09/2015 12:05 AM ACCOUNT STRATEGIST PLATELET COUNT STAT 11/08/2015 6:10 AM Fall, initial Result s for this ACCOUNT STRATEGIST encounter procedure are i n the results section. BASIC METABOLIC PANEL Routine 11/07/2015 7:03 AM Fall, initial Results for this ACCOUNT STRATEGIST encounter procedure are i n the results section. CBC WITH PLATELETS Routine 11/07/2015 7:03 AM Fall, initial Re sults for this ACCOUNT STRATEGIST encounter procedure are i n the results section. CBC WITH PLATELETS & Routine 11/06/2015 8:52 AM Fall, initial Results for this DIFFERENTIAL ACCOUNT STRATEGIST encounter procedure are i n the results section. BASIC METABOLIC PANEL Routine 11/06/2015 8:52 AM Fall, initial Results for this ACCOUNT STRATEGIST encounter procedure are i n the results section. CREATININE Routine 11/05/2015 5:40 PM Fall, initial Results for this ACCOUNT STRATEGIST encounter procedure are i n the results section. CT CHEST/ABDOMEN/PELVIS STAT 11/05/2015 3:48 PM Results for this W CONTRAST ACCOUNT STRATEGIST procedure are i n the results section. ABO/RH TYPE AND SCREEN STAT 11/05/2015 3:20 PM Results for this ACCOUNT STRATEGIST procedure are i n the results section. XR CHEST PORT 1 VIEW STAT 11/05/2015 3:04 PM R esults for this ACCOUNT STRATEGIST procedure are i n the results section. ISTAT BASIC CHEM ICA Routine 11/05/2015 2:56 PM R esults for this HEMATOCRIT POCT ACCOUNT STRATEGIST procedure ar e in the results section. CBC WITH PLATELETS & STAT 11/05/2015 2:49 PM R esults for this DIFFERENTIAL ACCOUNT STRATEGIST procedure are i n the results section. INR STAT 11/05/2015 2:49 PM Results f or this ACCOUNT STRATEGIST procedure are i n the results section. PARTIAL THROMBOPLASTIN STAT 11/05/2015 2:49 PM Results for this TIME ACCOUNT STRATEGIST procedure are i n the results section. BASIC METABOLIC PANEL STAT 11/05/2015 2:49 PM Results for this ACCOUNT STRATEGIST procedure are i n the results section. EKG 12-LEAD, TRACING STAT 11/05/2015 2:39 PM R esults for this ONLY ACCOUNT STRATEGIST procedure are i n the results section. documented in this encounter Results Platelet count (11/08/2015 6:10 AM ACCOUNT STRATEGIST) P athologist Signature Platelet Count 191 150 - 450 [place] 10e9/L [facility] Specimen Anatomical Collection Method Collection Time Receive d Time (Source) Location / / Volume Laterality Blood specimen 11/08/2015 6:10 AM 015 6:33 (specimen) ACCOUNT STRATEGIST AM ACCOUNT STRATEGIST Mae Villatoro MD LAB - BLOOD ORDERABLES Performing Organization Address City/State/ZIP Code Phon e Number M [facility] [address], [place] [address] [facility] [address] [place], [place] [address] [phone] (ABNORMAL) Basic metabolic panel (11/07/2015 7:03 AM ACCOUNT STRATEGIST) Patholo gist Method Time Signature Sodium 137 133 - 144 [place] mmol/L [facility] Potassium 4.0 3.4 - 5.3 [place] mmol/L [facility] Chloride 104 94 - 109 [place] mmol/L [facility] Carbon Dioxide 26 20 - 32 [place] mmol/L [facility] Anion Gap 7 3 - 14 [place] mmol/L [facility] Glucose 96 70 - 99 [place] mg/dL [facility] Urea Nitrogen 10 7 - 30 [place] mg/dL [facility] Creatinine 0.65 (L) 0.66 - [place] 1.25 [facility] mg/dL HOSPITAL GFR Estimate >90 >60 [place] Non GFR Calc mL/min/1. [facility] 7m2 HOSPITAL GFR Estimate >90 >60 [place] If Black GFR Calc mL/min/1. [place] [address] [facility] Calcium 8.6 8.5 - [place] 10.1 [facility] mg/dL HOSPITAL Specimen Anatomical Collection Method Collection Time Receive d Time (Source) Location / / Volume Laterality Blood specimen 11/07/2015 7:03 AM 015 7:10 (specimen) ACCOUNT STRATEGIST AM ACCOUNT STRATEGIST Zion Mijares MD LAB - BLOOD ORDERABLES Performing Organization Address City/State/ZIP Code Phon renny Turner [facility] [address], [place] [address] [facility] [address], [place] [address] [phone] (ABNORMAL) CBC with platelets (11/07/2015 7:03 AM ACCOUNT STRATEGIST) Analysis Performed At Patho logist Time Signature WBC 8.2 4.0 - 11.0 [place] 10e9/L [facility] RBC Count 3.16 (L) 4.4 - 5.9 [place] 10e12/L [facility] Hemoglobin 11.2 (L) 13.3 - [facility] 17.7 g/dL [facility] Hematocrit 33.3 (L) 40.0 - [place] 53.0 % [facility] MCV 105 (H) 78 - 100 [facility] MCH 35.4 (H) 26.5 - [facility] 33.0 [facility] MCHC 33.6 31.5 - [place] 36.5 g/dL [facility] RDW 13.4 10.0 - [facility] 15.0 % [facility] Platelet Count 170 150 - 450 [place] 10e9/L [facility] Specimen Anatomical Collection Method Collection Time Receive d Time (Source) Location / / Volume Laterality Blood specimen 11/07/2015 7:03 AM 015 7:10 (specimen) ACCOUNT STRATEGIST AM ACCOUNT STRATEGIST Zion Mijares MD LAB - BLOOD ORDERABLES Performing Organization Address City/State/ZIP Code Phon e Number M [place] [address] [address] [place] [address] [facility] [address] [phone] (ABNORMAL) CBC with platelets differential (11/06/2015 8:52 AM ACCOUNT STRATEGIST) [facility] gist Method Time Signature WBC 9.5 4.0 - [place] 11.0 [facility] 10e9/L [facility] RBC Count 3.28 (L) 4.4 - 5.9 [place] 10e12/L [facility] Hemoglobin 11.6 (L) 13.3 - [place] 17.7 g/dL [facility] Hematocrit 34.3 (L) 40.0 - [place] 53.0 % [facility] MCV 105 (H) 78 - 100 [facility] MCH 35.4 (H) 26.5 - [facility] 33.0 [facility] MCHC 33.8 31.5 - [place] 36.5 g/dL [facility] RDW 13.6 10.0 - [place] 15.0 % [facility] Platelet Count 167 150 - 450 [place] 10e9/L [facility] Diff Method Automated [place] Method [facility] % Neutrophils 73.4 % [facility] % Lymphocytes 14.0 % [facility] % Monocytes 11.0 % [facility] % Eosinophils 1.3 % [facility] % Basophils 0.2 % [facility] % Immature 0.1 % [place] Granulocytes [facility] Absolute 7.0 1.6 - 8.3 [place] Neutrophil 10e9/L [facility] Absolute 1.3 0.8 - 5.3 [place] Lymphocytes 10e9/L [facility] Absolute 1.1 0.0 - 1.3 [place] Monocytes 10e9/L [facility] Absolute 0.1 0.0 - 0.7 [place] Eosinophils 10e9/L [facility] Absolute 0.0 0.0 - 0.2 [place] Basophils 10e9/L [facility] Abs Immature 0.0 0 - 0.4 [place] Granulocytes 10e9/[facility] Specimen Anatomical Collection Method Collection Time Receive d Time (Source) Location / / Volume Laterality Blood specimen 11/06/2015 8:52 AM 015 9:18 (specimen) ACCOUNT STRATEGIST AM ACCOUNT STRATEGIST Mae Villatoro MD LAB - BLOOD ORDERABLES Performing Organization Address City/State/ZIP Code Phon e Number M [facility] [address] [place] [address] [facility] [address] [phone] (ABNORMAL) Basic metabolic panel (11/06/2015 8:52 AM ACCOUNT STRATEGIST) [facility] Method Time Signature Sodium 133 133 - 144 [place] mmol/L [facility] Potassium 3.9 3.4 - 5.3 [place] [facility] Chloride 101 94 - 109 [place] mmol/L [facility] Carbon Dioxide 23 20 - 32 [place] mmol/L [facility] Anion Gap 9 3 - 14 [place] mmol/L [facility] Glucose 126 (H) 70 - 99 [place] mg/dL [facility] Urea Nitrogen 13 7 - 30 [place] mg/dL [facility] Creatinine 0.66 0.66 - [place] 1.25 [facility] mg/dL HOSPITAL GFR Estimate >90 >60 [place] Non GFR Calc mL/min/1. [place] [id number] [facility] GFR Estimate >90 >60 [place] If Black GFR Calc mL/min/1. [facility] 7m2 [facility]OSPITAL Calcium 8.6 8.5 - [facility] 10.1 [place] mg/dL HOSPITAL Specimen Anatomical Collection Method Collection Time Receive d Time (Source) Location / / Volume Laterality Blood specimen 11/06/2015 8:52 AM 015 9:18 (specimen) ACCOUNT STRATEGIST AM ACCOUNT STRATEGIST Mae Villatoro MD LAB - BLOOD ORDERABLES Performing Organization Address City/[facility]/ZIP [facility] Ph[place] Number M [facility] [address], [place] [address] [place] [address] [address] [place], [place] [address], [facility] [phone] Creatinine (11/05/2015 5:40 PM ACCOUNT STRATEGIST) [facility] Method Time Signature Creatinine 0.73 0.66 - [place] 1.25 [place] mg/dL [facility] GFR Estimate >90 >60 [place] Non GFR Calc mL/min/1. [place] [id number] [facility] GFR Estimate >90 >60 [place] If Black GFR Calc mL/min/1. [facility] [address] Specimen Anatomical Collection Method Collection Time Receive d Time (Source) Location / / Volume Laterality Blood specimen 11/05/2015 5:40 PM 015 5:45 (specimen) ACCOUNT STRATEGIST PM ACCOUNT STRATEGIST Mae Villatoro MD LAB - BLOOD ORDERABLES Performing Organization Address City/[facility]/ZIP [facility] Ph[place] Number [place] [address] [address], [place] [address] [place] [address] [address] [place], [place] [address] [facility] [phone] CT Chest/Abdomen/Pelvis w Contrast (11/05/2015 3:48 PM ACCOUNT STRATEGIST) Anatomical Region Laterality Modality Abdomen/Pelvis, Chest, SUBRAD CT BODY, UMP CT CHEST, Computed Tomography UMP CT ABDOMEN PELVIS Specimen (Source) Anatomical Location Collection Method / Collectio n Time Received Time / Laterality Volume Impressions 11/05/2015 4:35 PM ACCOUNT STRATEGIST IMPRESSION: 1. ??Fractures of the posterolateral 9th through 12th ribs. ??No evidence of pneumothorax. ??Small left p leural effusion is present. 2. ??Left lower lobe mucoid impactions w ith complete atelectasis left lower lobe. ??An endobronchial mass not excluded. ??Followup with bronchoscopy as needed. ??Mild bronchiec tasis right lower lobe with mucoid impactions are also noted without atelectasis. ??Emphysema. 3. ??No evidence of solid abdominal orga n injury or laceration. ??No ascites or hemorrhage. NICOLETTE GUTIERRES MD Narrative 11/05/2015 4:[address] CHEST/ABDOMEN/PELVIS WITH CONTRAST 11/05/2015 3:48 PM HISTORY: Tripping and falling on rug two days ago with rib pain. COMPARISON: CT chest, abdomen and pelvis 08/05/2006. TECHNIQUE: Axial images from the thoraci c inlet to the symphysis are performed with additional coronal reform atted images. 63 mL of Isovue 370 are given intravenously. FINDINGS: Chest: Emphysema is present. ??Mild bron chiectatic changes with mucoid impactions right lower lobe are noted. ? ?Mucoid impactions are also noted in the left lower lobe with comple te atelectasis of the left lower lobe. ??Trace left pleural effusio n is also noted. ??Findings could indicate an obstructing endobronch ial mass in the proximal left lower lobe bronchus. ??No right pleural fluid or pericardial fluid. Heart is normal in size. ??Coronary shante ry calcifications are present. No enlarged lymph nodes. ??No definite e vidence of pneumothorax. Abdomen: The abdominal organs are within normal limits. ??No evidence of solid abdominal organ injury or lacer ation. ??No free intraperitoneal air or ascites. ??The april wel is normal in caliber without obstruction. ??Appendix is socorro l. ??Aorta is calcified without aneurysm or dissection. Pelvis: The bladder, prostate and rectum are unremarkable. ??No enlarged pelvic lymph nodes or free flui d. ??Old healed posterolateral left rib fractures are present. ??Acute posterior left rib fractures are also present involving the 9th, 10th , 11th and 12th ribs. Degenerative spine changes are present. ??No aggressive-appearing bone lesions are evident. Procedure Note Nicolette Gutierres MD - 11/05/2015Form atting of this note might be different from the original. CT CHEST/ABDOMEN/PELVIS WITH CONTRAST 3:48 PM HISTORY: Tripping and falling on rug two days ago with rib pain. COMPARISON: CT chest, abdomen and pelvis 08/05/2006. TECHNIQUE: Axial images from the thoraci c inlet to the symphysis are performed with additional coronal reform atted images. 63 mL of Isovue 370 are given intravenously. FINDINGS: Chest: Emphysema is present. Mild bronch iectatic changes with mucoid impactions right lower lobe are noted. M ucoid impactions are also noted in the left lower lobe with comple te atelectasis of the left lower lobe. Trace left pleural effusion is also noted. Findings could indicate an obstructing endobronch ial mass in the proximal left lower lobe bronchus. No right pleural fl uid or pericardial fluid. Heart is normal in size. Coronary artery calcifications are present. No enlarged lymph nodes. No definite rosa dence of pneumothorax. Abdomen: The abdominal organs are within normal limits. No evidence of solid abdominal organ injury or lacer ation. No free intraperitoneal air or ascites. The purnima l is normal in caliber without obstruction. Appendix is normal. Aorta is calcified without aneurysm or dissection. Pelvis: The bladder, prostate and rectum are unremarkable. No enlarged pelvic lymph nodes or free flui d. Old healed posterolateral left rib fractures are present. Acute po sterior left rib fractures are also present involving the 9th, 10th , 11th and 12th ribs. Degenerative spine changes are present. No aggressive-appearing bone lesions are evident. IMPRESSION IMPRESSION: 1. Fractures of the posterolateral 9th t hrough 12th ribs. No evidence of pneumothorax. Small left ple ural effusion is present. 2. Left lower lobe mucoid impactions wit h complete atelectasis left lower lobe. An endobronchial mass not ex cluded. Followup with bronchoscopy as needed. Mild bronchiecta sis right lower lobe with mucoid impactions are also noted without atelectasis. Emphysema. 3. No evidence of solid abdominal organ injury or laceration. No ascites or hemorrhage. NICOLETTE GUTIERRES MD Shelby Simon PA-C IMG CT ORDERABLES ABO/Rh type and screen (11/05/2015 3:20 PM ACCOUNT STRATEGIST) [facility] Method Time Signature ABO O [facility] RH(D) Pos [facility] Antibody Neg [facility] Test Valid [facility] Only At [facility] HOSPITAL Specimen 11/08/2015 [place] [facility] Spec[facility] Anatomical Collection Method Collection Time Receive d Time (Source) Location / / Volume Laterality Blood specimen 11/05/2015 3:20 PM 015 3:26 (specimen) ACCOUNT STRATEGIST PM ACCOUNT STRATEGIST Shelby Simon PA-C LAB - BLOOD BANK TEST ORDER Performing Organization Address City/State/ZIP Code Phon e Number M [facility] [address], [place] [address] [facility] [address], [place] [address] [facility] [phone] Chest XR, 1 view PORTABLE (11/05/2015 3:04 PM ACCOUNT STRATEGIST) Anatomical Region Laterality Modality Chest Computed Radiography Specimen (Source) Anatomical Location Collection Method / Collectio n Time Received Time / Laterality Volume Impressions 11/05/2015 3:14 PM ACCOUNT STRATEGIST IMPRESSION: No acute abnormality. EDGAR HERNANDEZ MD Narrative 11/05/2015 3:14 PM ACCOUNT STRATEGIST XR CHEST PORT 1 VW 11/05/2015 3:04 PM HISTORY: Chest pain. COMPARISON: 05/03/2015, 02/20/2012 FINDINGS: Minimal scarring or atelectasi s at the left lung base. No consolidation, pleural effusion or pneum othorax. Stable heart size. Old left-sided rib injuries. Procedure Note Edgar Hernandez MD - 11/05/2015For matting of this note might be different from the original. XR CHEST PORT 1 VW 11/05/2015 3:04 PM HISTORY: Chest pain. COMPARISON: 05/03/2015, 02/20/2012 FINDINGS: Minimal scarring or atelectasi s at the left lung base. No consolidation, pleural effusion or pneum othorax. Stable heart size. Old left-sided rib injuries. IMPRESSION IMPRESSION: No acute abnormality. EDGAR HERNANDEZ MD Shelby Simon PA-C IMG DIAGNOSTIC IMAGING ORDER SHA (ABNORMAL) ISTAT Basic Met ICa HCT POCT (11/05/2015 2:56 PM ACCOUNT STRATEGIST) P athologist Signature Sodium 136 133 - 144 [facility] mmol/L TEST, [facility] Potassium 4.1 3.4 - 5.3 [facility] mmol/L TEST, [facility] Chloride 101 94 - 109 [facility] mmol/L TEST, [facility] Total CO2 25 20 - 32 [facility] mmol/L TEST, [facility] Anion Gap 10 6 - 17 [facility] mmol/L TEST, [facility] Glucose 123 (H) 70 - 99 [facility] mg/dL TEST, [facility] Urea Nitrogen 19 7 - 30 [facility] mg/dL TEST, [facility] Creatinine 0.8 0.66 - [facility] 1.25 mg/dL TEST, [facility] GFR Estimate >90 >60 [facility] mL/min/1.7 TEST, m2 [facility] GFR Estimate If >90 >60 [facility] Black mL/min/1.7 TEST, m2 [facility] Calcium Ionized 4.6 4.4 - 5.2 [facility] mg/dL TEST, [facility] Hemoglobin 17.0 13.3 - [facility] 17.7 g/dL TEST, [facility] Hematocrit - 50 40.0 - [facility] POCT 53.0 %PCV TEST, [facility] Specimen Anatomical Collection Method Collection Time Receive d Time (Source) Location / / Volume Laterality 11/05/2015 2:56 PM 5 3:05 ACCOUNT STRATEGIST PM ACCOUNT STRATEGIST Juan M Davis MD [facility] POCT Performing Organization Address City/State/ZIP Code Phon e Number [facility] TEST, [facility] TEST, [facility] (ABNORMAL) Basic metabolic panel (11/05/2015 2:49 PM ACCOUNT STRATEGIST) [facility] Method Time Signature Sodium 135 133 - 144 [place] mmol/L [facility] Potassium 4.1 3.4 - 5.3 [place] mmol/L [facility] Chloride 102 94 - 109 [place] mmol/L [facility] Carbon Dioxide 24 20 - 32 [place] mmol/L [facility] Anion Gap 9 3 - 14 [place] mmol/L [facility] Glucose 119 (H) 70 - 99 [place] mg/dL [facility] Urea Nitrogen 17 7 - 30 [place] mg/dL [facility] Creatinine 0.67 0.66 - [facility] 1.25 [facility] mg/dL [facility] GFR Estimate >90 >60 [place] Non GFR Calc mL/min/1. [address] GFR Estimate >90 >60 [place] If Black GFR Calc mL/min/1. [facility] [address] [facility] Calcium 9.2 8.5 - [place] 10.1 [facility] mg/dL HOSPITAL Specimen Anatomical Collection Method Collection Time Receive d Time (Source) Location / / Volume Laterality 11/05/2015 2:49 PM 5 3:11 ACCOUNT STRATEGIST PM ACCOUNT STRATEGIST Shelby Simon PA-C LAB - BLOOD ORDERABLES Performing Organization Address City/State/ZIP Code Phon e Number M [facility] [address], [place] [address] [facility] [place] [address] [phone] (ABNORMAL) CBC + differential (11/05/2015 2:49 PM ACCOUNT STRATEGIST) [facility] Method Time Signature WBC 10.1 4.0 - [place] 11.0 [facility] 10e9/[facility] RBC Count 4.12 (L) 4.4 - 5.9 [place] 10e12/L [facility] Hemoglobin 14.9 13.3 - [place] 17.7 g/dL [facility] Hematocrit 43.2 40.0 - [place] 53.0 % [facility] MCV 105 (H) 78 - 100 [facility] MCH 36.2 (H) 26.5 - [place] 33.0 pg [facility] MCHC 34.5 31.5 - [place] 36.5 g/dL [facility] RDW 13.7 10.0 - [place] 15.0 % [facility] Platelet Count 208 150 - 450 [place] 10e9/L [facility] Diff Method Automated [facility] % Neutrophils 76.9 % [facility] % Lymphocytes 13.6 % [facility] % Monocytes 8.3 % [facility] % Eosinophils 0.6 % [facility] % Basophils 0.3 % [facility] % Immature 0.3 % [place] Granulocytes [facility] Absolute 7.8 1.6 - 8.3 [place] Neutrophil 10e9/L [facility] Absolute 1.4 0.8 - 5.3 [place] Lymphocytes 10e9/L [facility] Absolute 0.8 0.0 - 1.3 [place] Monocytes [address] [place] [address] Absolute 0.1 0.0 - 0.7 [place] Eosinophils [address] [place] [address] Absolute 0.0 0.0 - 0.2 [place] Basophils [address] [place] [address] Abs Immature 0.0 0 - 0.[address] Specimen Anatomical Collection Method Collection Time Receive d Time (Source) Location / / Volume Laterality Blood specimen 11/05/2015 2:49 PM 015 3:11 (specimen) ACCOUNT STRATEGIST PM ACCOUNT STRATEGIST Shelby Simon PA-C LAB - BLOOD ORDERABLES Performing Organization Address City/[facility]/ZIP [facility] Ph[place] Number [facility] [address], [place] [address] [place] [address] [address] [place], [place] [address], [facility] [phone] PTT (11/05/2015 2:49 PM ACCOUNT STRATEGIST) P athologist Signature PTT 29 22 - 37 sec [facility] Specimen Anatomical Collection Method Collection Time Receive d Time (Source) Location / / Volume Laterality Blood specimen 11/05/2015 2:49 PM 015 3:11 (specimen) ACCOUNT STRATEGIST PM ACCOUNT STRATEGIST Shelby Simon PA-C LAB - BLOOD ORDERABLES Performing Organization Address City/[facility]/ZIP Code Phon e Number [facility] [address], [place] [address] [facility] [address] [place], [place] [address], [facility] [phone] INR (11/05/2015 2:49 PM ACCOUNT STRATEGIST) P athologist Signature INR 0.90 0.86 - 1.14 [facility] Specimen Anatomical Collection Method Collection Time Receive d Time (Source) Location / / Volume Laterality Blood specimen 11/05/2015 2:49 PM 015 3:11 (specimen) ACCOUNT STRATEGIST PM ACCOUNT STRATEGIST Shelby Simon PA-C LAB - BLOOD ORDERABLES Performing Organization Address City/[facility]/ZIP Code Phon e Number M [facility] [address], [place] [address] [facility] [address] [place], [place] [address] [place] [address] EKG 12 lead (11/05/2015 2:39 PM ACCOUNT STRATEGIST) [facility] gist Method Time Signature Interpretation ECG Click View RADIOLOGY Image link RESULTS to view waveform and result Specimen (Source) Anatomical Collection Method Collection Time Re ceived Time Location / / Volume Laterality 11/05/2015 2:39 PM ACCOUNT STRATEGIST Shelby Simon PA-C ECG ORDERABLES Performing Organization Address City/State/ZIP Code Phon e Number RADIOLOGY RESULTS documented in this encounter Visit Diagnoses Diagnosis Benign essential hypertension - Primary Essential hypertension, benign Fall, initial encounter Closed fracture of multiple ribs of left side, initial encounter Hypoxia Hypoxemia Pneumonia of left lower lobe due to infe ctious organism Pneumonia Pneumonia, organism unspecified documented in this encounter Administered Medications Inactive Administered Medications - up to 3 most recent administrations Medication Order MAR Action Action Date Dose Rate Site 0.9% sodium chloride BOLUS New Bag 11/05/2015 3:33 PM ACCOUNT STRATEGIST 56 mLs Intravenous, 1,000 mL, ONCE, On Sun11/05/15 at 1531, For 1 dose acetaminophen (TYLENOL) tablet 1,000 mg Given 11/09/2015 8:03 AM ACCOUNT STRATEGIST 1,000 mg 1,000 mg, Oral, 3 TIMES DAILY, First dose on 11/07/15 at 1600, Maximum acetaminophen dose from all sources = 75 mg/kg/day not to exceed 4 gram Given 11/08/2015 10:11 PM ACCOUNT STRATEGIST 1,000 mg Given 11/08/2015 4:38 PM ACCOUNT STRATEGIST 1,000 mg acetaminophen (TYLENOL) tablet 975 mg Given 11/07/2015 8:29 AM ACCOUNT STRATEGIST 975 mg 975 mg, Oral, EVERY 8 HOURS, First dose on 11/06/15 at 0000, Maximum acetaminophen dose from all sources = 75 mg/kg/day not to exceed 4 grams/day. Given 11/07/2015 12:30 AM ACCOUNT STRATEGIST 975 mg Given 11/06/2015 3:50 PM ACCOUNT STRATEGIST 975 mg amLODIPine (NORVASC) tablet 10 mg Given 11/08/2015 8:38 AM ACCOUNT STRATEGIST 10 mg 10 mg, Oral, EVERY MORNING, First dose (after last modification) on 11/06/15 at 0900 Given 11/07/2015 8:31 AM ACCOUNT STRATEGIST 10 mg Given 11/06/2015 12:41 PM ACCOUNT STRATEGIST 10 mg aspirin tablet 325 mg Given 11/09/2015 8:04 AM ACCOUNT STRATEGIST 325 mg 325 mg, Oral, EVERY MORNING, First dose (after last modification) on 11/06/15 at 0900 Given 11/08/2015 8:37 AM ACCOUNT STRATEGIST 325 mg Given 11/07/2015 8:30 AM ACCOUNT STRATEGIST 325 mg atenolol (TENORMIN) tablet 25 mg Given 11/09/2015 11:02 AM ACCOUNT STRATEGIST 25 mg 25 mg, Oral, DAILY, First dose on 11/06/15 at 0800, For Adults, Hold if Heart Rate less than 60 bpm. Given 11/08/2015 8:38 AM ACCOUNT STRATEGIST 25 mg Given 11/07/2015 8:31 AM ACCOUNT STRATEGIST 25 mg atorvastatin (LIPITOR) tablet 40 mg Given 11/09/2015 8:03 AM ACCOUNT STRATEGIST 40 mg 40 mg, Oral, EVERY MORNING, First dose (after last modification) on 11/06/15 at 0900 Given 11/08/2015 8:38 AM ACCOUNT STRATEGIST 40 mg Given 11/07/2015 8:30 AM ACCOUNT STRATEGIST 40 mg azithromycin (ZITHROMAX) 500 mg in NaCl 0.9 New Bag 10/20 9:28 AM ACCOUNT STRATEGIST 500 mg % 250 mL intermittent infusion STAT, 500 mg, Intravenous, EVERY 24 HOURS, First dose on 11/06/15 at 1000, Indications: Community Acquired Pneumonia New Bag 11/06/2015 10:30 AM ACCOUNT STRATEGIST 500 mg azithromycin (ZITHROMAX) tablet 500 mg Given 11/05/2015 4:45 PM ACCOUNT STRATEGIST 500 mg STAT, 500 mg, Oral, ONCE, On Sun11/05/15 at 1635, For 1 dose, Indications: Community Acquired Pneumonia cefTRIAXone (ROCEPHIN) 1 g vial to attach to New Bag 5 4:46 PM ACCOUNT STRATEGIST 1 g NS 100 ml bag or NS 50 ml bag for PEDS STAT, 1 g, Intravenous, ONCE, On Sun11/05/15 at 1635, For 1 dose, Indications: Community Acquired Pneumonia cefTRIAXone (ROCEPHIN) 1 g vial to attach to New Bag 11:52 AM ACCOUNT STRATEGIST 1 g NS 100 ml bag or NS 50 ml bag for PEDS Routine, 1 g, Intravenous, EVERY 24 HOURS, First dose on Sun11/06/15 at 1200, Indications: Community Acquired Pneumonia New Bag 11/06/2015 12:43 PM ACCOUNT STRATEGIST 1 g enoxaparin (LOVENOX) injection 40 mg Given 11/08/2015 7:50 PM ACCOUNT STRATEGIST 40 mg 40 mg, Subcutaneous, EVERY 24 HOURS, First dose on Sun11/05/15 at 2000, HOLD if platelet count falls below 50% of baseline or less than 100,000/??L and notify provider. Given 11/07/2015 8:12 PM ACCOUNT STRATEGIST 40 mg Given 11/06/2015 8:18 PM ACCOUNT STRATEGIST 40 mg HYDROmorphone (PF) (DILAUDID) injection 0.5 Given 11/05/2015 4:47 PM ACCOUNT STRATEGIST 0.5 mg mg 0.5 mg, Intravenous, EVERY 30 MIN PRN, moderate to severe pain, Starting on Sun11/05/15 at 1541, For 3 doses Given 11/05/2015 3:55 PM ACCOUNT STRATEGIST 0.5 mg ibuprofen (ADVIL,MOTRIN) tablet 600 mg Given 11/09/2015 8:03 AM ACCOUNT STRATEGIST 600 mg 600 mg, Oral, EVERY 8 HOURS, First dose on Sun11/06/15 at 0000 Given 11/09/2015 12:37 AM ACCOUNT STRATEGIST 600 mg Given 11/08/2015 6:39 PM ACCOUNT STRATEGIST 600 mg iopamidol (ISOVUE-370) 76% solution 500 mL Given 11/05/2015 3:33 PM ACCOUNT STRATEGIST 63 mLs 500 mL, Intravenous, ONCE, On Sun11/05/15 at 1531, For 1 dose ipratropium - albuterol 0.5 mg/2.5 mg/3 mL Given 11/09/2015 7:37 AM ACCOUNT STRATEGIST 3 mLs (DUONEB) nebulizer solution 3 mL 3 mL, Nebulization, EVERY 4 HOURS, First dose on Sun11/05/15 at 2200 Given 11/09/2015 3:34 AM ACCOUNT STRATEGIST 3 mLs Given 11/08/2015 11:27 PM ACCOUNT STRATEGIST 3 mLs ipratropium - albuterol 0.5 mg/2.5 mg/3 mL Given 11/09/2015 11:1 7 AM ACCOUNT STRATEGIST 3 mLs (DUONEB) nebulizer solution 3 mL 3 mL, Nebulization, 4 TIMES DAILY RT, First dose (after last modification) on Sun11/09/15 at 1200 ketoprofen 10% in PLO topical cream Given 11/07/2015 8:11 PM ACCOUNT STRATEGIST Transdermal, EVERY 4 HOURS PRN, moderate pain, Starting on 11/06/15 at 1255, Apply to tid to chest Given 11/07/2015 4:33 PM ACCOUNT STRATEGIST ketoprofen 10% in PLO topical cream Given 11/09/2015 1:29 AM ACCOUNT STRATEGIST Transdermal, 3 TIMES DAILY PRN, moderate pain, Starting on 11/07/15 at 1343, Apply to Affected area on chest Given 11/08/2015 2:58 PM ACCOUNT STRATEGIST lactated ringers 1,000 mL infusion New Bag 11/06/2015 5:32 AM ACCOUNT STRATEGIST 100 mL/hr 1,000 mL, at 100 mL/hr, Intravenous, CONTINUOUS, Starting on Sun11/05/15 at 1733, Until 11/06/15 at 1252 Rate/Dose Verify 11/06/2015 12:20 AM ACCOUNT STRATEGIST 100 mL/hr New Bag 11/05/2015 7:26 PM ACCOUNT STRATEGIST 100 mL/hr levofloxacin (LEVAQUIN) New Bag 11/08/2015 4:40 PM ACCOUNT STRATEGIST 500 mg 100 mL/hr intermittent infusion 500 mg STAT, 500 mg, Intravenous, EVERY 24 HOURS, First dose on 11/07/15 at 1600, Administer at a rate of no greater than 100mL/hr, Indications: Community Acquired Pneumonia New Bag 11/07/2015 4:28 PM ACCOUNT STRATEGIST 500 mg 100 mL/hr lisinopril (PRINIVIL,ZESTRIL) tablet 20 mg Given 11/08/2015 8:37 AM ACCOUNT STRATEGIST 20 mg 20 mg, Oral, EVERY MORNING, First dose (after last modification) on 11/06/15 at 0900 Given 11/07/2015 8:30 AM ACCOUNT STRATEGIST 20 mg Given 11/06/2015 12:40 PM ACCOUNT STRATEGIST 20 mg nicotine (NICODERM CQ) 14 Given 11/09/2015 8:04 AM ACCOUNT STRATEGIST 1 patch Right Deltoid MG/24HR 1 patch 1 patch, Transdermal, DAILY, First dose on 11/07/15 at 0315 Given 11/08/2015 8:36 AM ACCOUNT STRATEGIST 1 patch Left Deltoid Given 11/07/2015 4:12 AM ACCOUNT STRATEGIST 1 patch Right Deltoid nicotine Patch in Place Given 11/07/2015 8:32 AM ACCOUNT STRATEGIST First dose on 11/07/15 at 0300, Chart every shift, confirming that patch is still in place on patient (no barcode scan needed). See patch order for dose information. oxyCODONE (ROXICODONE) immediate release Given 11/09/2015 11:02 AM ACCOUNT STRATEGIST 10 mg tablet 5-10 mg 5-10 mg, Oral, EVERY 3 HOURS PRN, moderate to severe pain, Starting on Sun11/05/15 at 1731 Given 11/09/2015 12:37 AM ACCOUNT STRATEGIST 10 mg Given 11/08/2015 7:56 PM ACCOUNT STRATEGIST 10 mg polyethylene glycol (MIRALAX/GLYCOLAX) packet Given 11/09/20 8:04 AM ACCOUNT STRATEGIST 17 g 17 g 17 g, Oral, DAILY PRN, constipation, Starting on Sun11/05/15 at 1731, Give in 8oz of water, juice, or soda. Hold for loose stools. This is the second step of a three step constipation treatment protocol. Given 11/08/2015 8:37 AM ACCOUNT STRATEGIST 17 g senna-docusate (SENOKOT-S;PERICOLACE) Given 11/09/2015 8:[address] 2 tablets 8.6-50 MG per tablet 2 tablet 2 tablet, Oral, 2 TIMES DAILY, First dose on Sun11/05/15 at 2000, If no bowel movement in 24 hours, increase to 2 tablets PO BID. Hold for loose stools. This is the first step of a three step constipation treatment protocol. Given 11/08/2015 7:50 PM ACCOUNT STRATEGIST 2 tablets Given 11/08/2015 8:37 AM ACCOUNT STRATEGIST 2 tablets sodium chloride (OCEAN) 0.65 % nasal spray Given 11/09/2015 1:27 AM ACCOUNT STRATEGIST 1 spray 1-2 spray 1-2 spray, Nasal, EVERY 1 HOUR PRN, other, dry nasal passages, Starting on Sun11/08/15 at 0406, To affected nostril(s) Given 11/08/2015 2:58 PM ACCOUNT STRATEGIST 2 sprays Given 11/08/2015 1:33 PM ACCOUNT STRATEGIST 2 sprays sodium chloride (PF) 0.9% PF flush 3 mL Given 11/09/2015 8:10 AM ACCOUNT STRATEGIST 3 mLs 3 mL, Intracatheter, EVERY 8 HOURS, First dose on Sun11/09/15 at 0815 vitamin D (ERGOCALCIFEROL) capsule Given 11/07/2015 9:26 AM ACCOUNT STRATEGIST 50,000 Units 50,000 Units 50,000 Units, Oral, WEEKLY, First dose on 11/07/15 at 0900 zolpidem (AMBIEN) tablet 5 mg Given 11/07/2015 9:13 PM ACCOUNT STRATEGIST 5 mg 5 mg, Oral, AT BEDTIME PRN, sleep, Starting on Sun11/05/15 at 1731, Do not give unless at least 6 hours of uninterrupted sleep is expected. Given 11/07/2015 1:41 AM ACCOUNT STRATEGIST 5 mg Given 11/06/2015 12:25 AM ACCOUNT STRATEGIST 5 mg documented in this encounter Active and Recently Administered Medications Times are shown in ACCOUNT STRATEGIST. Scheduled Medication Order 11/07/2015 11/08/2015 11/09/2015 acetaminophen (TYLENOL) tablet 1,000 mg 1629 (Given - Provider: Adrienne Wheatley LPN)2119 (Given - Provider: Adrienne Wheatley LPN) 0837 (Given - Provider: Shweta Cervantes LPN)1638 (Given - Provider: Shy Davenport LPN)2211 (Given - Provider: Shy Davenport LPN) 0803 (Given - Provider: Katelin Beltran RN) 1,000 mg, Oral, 3 TIMES DAILY, First dos e on 11/07/15 at 1600, Maximum acetaminophen dose from all sources = 75 mg/kg/day not to exceed 4 gram acetaminophen (TYLENOL) tablet 975 mg (CANCELED) 0030 (Given - Provider: Noemí Yarbrough LPN)0829 (Given - Provider: Chastity Rodgers, RICHY) 975 mg, Oral, EVERY 8 HOURS, First dose on 11/06/15 at 0000, Maximum acetaminophen dose from all sources = 75 mg/kg/day not to exceed 4 grams/day. amLODIPine (NORVASC) tablet 10 mg (CANCELED) 0831 (Giv en - Provider: Chastity Rodgers RN) 0838 (Given - Provider: Shweta Cervantes LPN) 1103 ( Not Given - Provider: Shweta Cervantes LPN - Reason: Med discontinued by Provider) 10 mg, Oral, EVERY MORNING, First dose on 11/06/15 at 0900 aspirin tablet 325 mg (CANCELED) 0830 (Given - Provider: Dieter Rodgers RN) 0837 (Given - Provider: Shweta Cervantes LPN) 0804 (Given - Provider: Katelin Beltran RN) 325 mg, Oral, EVERY MORNING, First dose on 11/06/15 at 0900 atenolol (TENORMIN) tablet 25 mg (CANCELED) 0831 (Give n - Provider: Chastity Rodgers RN) 0838 (Given - Provider: Shweta Cervantes LPN) 1102 ( Given - Provider: Shweta Cervantes LPN) 25 mg, Oral, DAILY, First dose on Sat at 0800, For Adults, Hold if Heart Rate less than 60 bpm. atorvastatin (LIPITOR) tablet 40 mg (CANCELED) 08 (G iven - Provider: Chastity Rodgers RN) 0838 (Given - Provider: Shweta Cervantes LPN) 0803 ( Given - Provider: Katelin Beltran RN) 40 mg, Oral, EVERY MORNING, First dose on 11/06/15 at 0900 azithromycin (ZITHROMAX) 500 mg in NaCl 0.9 % 250 mL intermittent infusion (CANCELED) 0928 (New Bag - Provider: Allison Carvajal LPN) 500 mg, Intravenous, EVERY 24 HOURS, Fir st dose on Sun11/06/15 at 1000, Indications: Community Acquired Pneumonia cefTRIAXone (ROCEPHIN) 1 g vial to attac h to NS 100 ml bag or NS 50 ml bag for PEDS (CANCELED) 1152 (New Bag - Provider: Allison Carvajal LPN) 1 g, Intravenous, EVERY 24 HOURS, First dose on 11/06/15 at 1200, Indications: Community Acquired Pneumonia enoxaparin (LOVENOX) injection 40 mg (CANCELED) 2011 ( Given - Provider: Marisol Abarca RN) 1949 (Given - Provider: Shy Davenport LPN) 40 mg, Subcutaneous, EVERY 24 HOURS, [address]ir st dose on Sun11/05/15 at 2000, HOLD if platelet count falls below 50% of baseline or less than 100,000/??L and notify provider. ibuprofen (ADVIL,MOTRIN) tablet 600 mg (CANCELED) 38 (Given - Provider: Noeím Yarbrough LPN)0830 (Given - Provider: Chastity Rodgers, RICHY)1630 (Given - Provider: Adrienne Wheatley LPN) 0010 (Given - Provider: Veronica Choi LP N)0837 (Given - Provider: Shweta Cervantes LPN)1839 (Given - Provider: Radha De La Rosa, RN) 0037 (Given - Provider: Nancy Brower LPN)0803 (Given - Provider: Katelin Beltran, RICHY) 600 mg, Oral, EVERY 8 HOURS, First dose on Sun11/06/15 at 0000 ipratropium - albuterol 0.5 mg/2.5 mg/3 mL (DUONEB) nebulizer solution 3 mL (CANCELED) 0402 (Given - Provider: Juan M Hinkle, RT)0801 (Given - Provider: Susy Troncoso, RT)1203 (Given - Provider: Susy Troncoso, RT)1633 (Given - Provider: Susy Troncoso, RT)2021 (Given - Provider: Sarah Nino, RT) 0030 (Given - Provider: Sarah roy, RT)0409 (Given - Provider: Sarah Nino RT)0727 (Given - Provider: Haider Bill RT)1120 (Given - Provider: David Peñaloza RT)1538 (Given - Provider: Rojelio Dunne, RT) 0334 (Given - Provider: Sarah roy RT)0737 (Given - Provider: Haider Bill RT) 3 mL, Nebulization, EVERY 4 HOURS, First dose on Sun 5 at 2200 1934 (Given - Provider: Rojelio Dunne, RT)2327 (Given - Provider: Sarah Nino, RT) ipratropium - albuterol 0.5 mg/2.5 mg/3 mL (DUONEB) nebulizer solution 3 mL (CANCELED) 1117 (Given - Provid er: Haider Bill RT) 3 mL, Nebulization, 4 TIMES DAILY, First dose on Sun11/09/15 at 1200 levofloxacin (LEVAQUIN) intermittent infusion 500 mg ( CANCELED) 1628 (New Bag - Provider: Adrienne Wheatley LPN) 1640 (New Bag - Provider: Shy Davenport LPN) 500 mg, Intravenous, EVERY 24 HOURS, Fir st dose on 11/07/15 at 1600, Administer at a rate of no greater than 100mL/hr, Indications: Community Acquired Pneumonia levofloxacin (LEVAQUIN) tablet 500 mg 500 mg, Oral, EVERY 24 HOURS, First dose on Sun11/09/15 at 1600, Administer at least 2 hrs before or 4 hrs after aluminum, calcium, iron, zinc or magnesium containing products., Indications: pneumonia, postobstructive? lisinopril (PRINIVIL,ZESTRIL) tablet 20 mg (CANCELED) 0830 (Given - Provider: Chastity Rodgers RN) 0837 (Given - Provider: Shweta Cervantes LPN) 1103 ( Not Given - Provider: Shweta Cervantes LPN - Reason: Med discontinued by Provider) 20 mg, Oral, EVERY MORNING, First dose on Sun11/06/15 at 0900 nicotine (NICODERM CQ) 14 MG/24HR 1 patch (CANCELED) 0 412 (Given - Provider: Veronica Pacheco RN)0900 (Canceled Entry - Provider: Veronica Pacheco RN) 0836 (Given - Provider: Shweta Cervantes LPN) 0804 (Given - Provider: Mac Sheffield) 1 patch, Transdermal, DAILY, First dose on 11/07/15 at [address] (CANCELED) 0412 (Patch in Plac e - Provider: Veronica Pacheco RN)0832 (Given - Provider: Chastity Rodgers RN)1624 (Patch in Place - Provider: Adrienne Wheatley LPN) 0010 (Patch in Place - Provider: Veronica Choi LPN)0827 (Patch in Place - Provider: Shweta Cervantes LPN - Comment: 14 mg)1637 (Patch in Place - Provider: Shy Davenport LPN) 0037 (Patch in Place - Provider: Nancy Brower LPN)0807 (Patch in Place - Provider: Katelin Beltran RN) Starting 11/07/15 at 0300, Chart daja ry shift, confirming that patch is still in place on patient (no barcode scan needed). See patch order for dose information. senna-docusate (SENOKOT-S;PERICOLACE) 8.6-50 MG per ta blet 2 tablet 0829 (Given - Provider: Chastity Rodgers, RICHY)2010 (Given - Provider: Marisol Abarca, RICHY) 0837 (Given - Provider: Shweta Cervantes LPN)1949 (Given - Provider: Shy Davenport LPN) 0802 (Given - Provider: Mac Sheffield) 2 tablet, Oral, 2 TIMES DAILY, First dos e on Sun11/05/15 at 2000, If no bowel movement in 24 hours, increase to 2 tablets PO BID. Hold for loose stools. This is the first step of a three step constipation treatment protocol. sodium chloride (PF) 0.9% PF flush 3 mL (CANCELED) 0810 (Given - Provider: Katelin Beltran RN) 3 mL, Intracatheter, EVERY 8 HOURS, First dose on Sun11/09/15 a t 0815 vitamin D (ERGOCALCIFEROL) capsule 50,000 Units (CANCE LED) 0926 (Given - Provider: Allison Carvajal LPN) 50,000 Units, Oral, WEEKLY, First dose on 11/07/15 at 0900 PRN Medication Order 11/07/2015 11/08/2015 11/09/2015 ketoprofen 10% in PLO topical cream (CANCELED) 1633 (G iven - Provider: Adrienne Wheatley LPN)2010 (Given - Provider: Marisol Abarca RN) Transdermal, EVERY 4 HOURS PRN, moderate pain, Starting 11/06/15 at 1255, Apply to tid to chest ketoprofen 10% in PLO topical cream 1458 (Given - Provider: Shweta Cervantes LPN) 0129 (Given - Provider: Nancy Brower LPN) Transdermal, 3 TIMES DAILY PRN, moderate pain, Starting 11/07/15 at 1343, Apply to Affected area on chest oxyCODONE (ROXICODONE) immediate release tablet 5-10 m g 0411 (Given - Provider: Veronica Pacheco RN)0941 (Given - Provider: Allison Carvajal LPN)1401 (Given - Provider: Chastity Rodgers RN)1650 (Given - Provider: Adrienne Wheatley LPN)2112 (Given - Provider: Adrienne Wheatley LPN) 0015 (Given - Provider: Arlyn Olivas RN)0837 (Given - Provider: Shweta Cervantes LPN)1332 (Given - Provider: Shweta Cervantes LPN)1647 (Given - Provider: Shy Davenport LPN)1956 (Given - Provider: Shy Davenport LPN) 0037 (Given - Provider: Nancy Brower LPN)1102 (Given - Provider: Shweta Cervantes LPN) 5-10 mg, Oral, EVERY 3 HOURS PRN, modera te to severe pain, Starting Sun11/05/15 at 1731 polyethylene glycol (MIRALAX/GLYCOLAX) packet 17 g (CANCELED ) 0837 (Given - Provider: Shweta Cervantes LPN) 0804 (Given - Provider: Mac Sheffield) 17 g, Oral, DAILY PRN, constipation, Sta rting 11/05/15 at 1731, Give in 8oz of water, juice, or soda. Hold for loose stools. This is the second step of a three step constipation treatment protocol. sodium chloride (OCEAN) 0.65 % nasal spray 1-2 spray (CANCEL ED) 0503 (Given - Provider: Arlyn Olivas RN)0824 (Given - Provider: Shweta Cervantes LPN)1000 (Given - Provider: Shweta Cervantes LPN)1333 (Given - Provider: Shweta Cervantes LPN)1458 (Given - Provider: Shweta Cervantes LPN) 0127 (Given - Provider: Nancy Brower LPN) 1-2 spray, Nasal, EVERY 1 HOUR PRN, othe r, dry nasal passages, Starting Sun11/08/15 at 0406, To affected nostril(s) zolpidem (AMBIEN) tablet 5 mg (CANCELED) 0141 (Given - Provider: Noemí Yarbrough LPN)2113 (Given - Provider: Adrienne Wheatley LPN) 5 mg, Oral, AT BEDTIME PRN, Starting 11/05/15 at 1731, sleep, Do not give unless at least 6 hours of uninterrupted sleep is expected. documented in this encounter Care Teams Flight Attendant/Inflight Supervisor Relationship Specialty Start Date End Date Clinic, [facility] PCP - General 11/05/15 10/25/21 [id number] [place] [address] documented as of this encounter
--- OUTSIDE RECORDS SUMMARY | 2022-08-25 14:27 | XMS_ITS | Encounter Summary ---
:1960 Author Organization [facility] Address [address] [facility] [place] [address] Care Team Providers Name Role Phone Noemí Champagne MD Primary Care Provider Reason for Visit Reason Comments Shortness of Breath Auth/Cert - Closed Specialty Diagnoses / Procedures Referred By Contact Refer red To Contact Intensive Care Diagnoses Severe sepsis(995.92) Pneumonia Acute renal insufficiency Sepsis due to pneumonia [facility] [address] [place] [address] Phone: Fax: Referral ID Status Reason Start Date Expiration Date Visits Requ ested Visits Authorized [id number] Closed 04/29/2015 10/26/2015 1 1 Encounter Details Date Type Department Care Team [facility] [address] [place], [place] [id number] Anemia (Primary Dx); 05/04/2015 Encounter [facility] León Aleman MD [address] [place] [address] Severe sepsis(995.92) (H); [address] Acute renal insufficiency; [place], [place] COPD (chronic obstructive pulmonary disease) (H); [address] COPD exacerbation (H) [phone] Social History Tobacco Use Types Packs/Day Years Used Date Current Every Day Smoker 1 28 Alcohol Use Standard Drinks/Week Comments Yes 1.7 (1 standard drink = 0.6 oz pure alco hol) Sex Assigned at Date Recorded Not on file documented as of this encounter Last Filed Vital Signs Vital Sign Reading Time Taken Comments Blood Pressure 117/79 05/04/2015 8:52 AM CDT Pulse 93 05/03/2015 12:49 PM CDT Temperature 36.3 ??C (97.3 ??F) 05/04/2015 8:52 AM CDT Respiratory Rate 20 05/04/2015 8:52 AM CDT Oxygen Saturation 92% 05/04/2015 8:52 AM CDT Inhaled Oxygen Concentration - - Weight 57.8 kg (127 lb 6.8 oz) 04/30/2015 5:30 AM CDT Height 175.3 cm (5' 9) 04/28/2015 8:36 PM CDT Body Mass Index 18.82 04/28/2015 8:36 PM CDT documented in this encounter Discharge Summaries Andrews Stanley MD - 05/04/2015 10:51 AM CDT [facility] Discharge Summary Name: Steve Gutierrez Date of : 1960 Age: [age] year old Date of Discharge: 05/04/2015 Date of Admission: 04/28/2015 Primary Care Provider: Noemí Champagne Discharge Physician: Delano Stanley MD Discharging Service: Hospitalist Hospital Course/Discharge Diagnoses: Steve Gutierrez is a 55-year-old man with history of hypertension, COPD, and two previous strokes. He presented to the ED for evaluation of cough and shortness of breath. He was found to have sepsis secondary to bilateral community-acquired pneumonia with acute exacerbation of COPD, acute respiratory failure, acute kidney injury, dehydration and lactic acidosis. He was admitted to the ICU because of the need for BIPAP. He was treated with Zosyn, Levaqin, and IVF hydration as well as IV then oral steroids. Hospital course was complicated by chest pain due to pneumonia and hyperglycemia due to solumedrol. He is improving significantly and now only requires 2L of O2 with activity based on walking O2 evaluation (86% with activity on RA, 89% at rest). He has completed his course of steroids and will have three more days of levaquin for a 10 day total course. He should have a follow up CXR and he will restart medical therapies for COPD as he has been off of controller meds for over a year. 1. Sepsis due to community acquired pneumonia. Cultures negative. 2. Acute kidney injury. suspect this was secondary to sepsis and prerenal azotemia. Resolved. 3. Lactic acidosis, due to sepsis. Resolved. 4. Chronic obstructive pulmonary disease with acute exacerbation. Add symbicort as he has been off of controller inhalers for about a year. Home O2 as above. 5. Acute respiratory failure, due to pneumonia and COPD with exacerbation. He will need a follow up CXR in a few weeks. Improved. 6. Hypertension: Atenolol 25 mg daily today. Have restarted lisinopril and amlodipine as well. 7. Drop in hemoglobin: without any acute signs or symptoms of bleeding. ?dilution. Stable and improved. 8. Hyperglycemia, due to solumedrol. Resolved when steroids stopped. 9. History of cerebrovascular accident. Continue aspirin. He was on plavix for a period here but tells me he has been stable on 325 mg ASA for a number of years and does not take plavix. 10. Leukocytosis: likely due to steroids at this point. Discharge Disposition: Discharged to home Allergies: No Known Allergies Discharge Medications: Current Discharge Medication List START taking these medications Details levofloxacin (LEVAQUIN) 750 MG tablet Take 1 tablet (750 mg) by mouth daily for 3 days Qty: 3 tablet, Refills: 0 Associated Diagnoses: Pneumonia albuterol (PROAIR HFA, PROVENTIL HFA, VENTOLIN HFA) 108 (90 BASE) MCG/ACT inhaler Inhale 2 puffs into the lungs every 4 hours as needed for shortness of breath / dyspnea or wheezing Qty: 1 Inhaler, Refills: 3 Associated Diagnoses: COPD (chronic obstructive pulmonary disease) budesonide-formoterol (SYMBICORT) 160-4.5 MCG/ACT inhaler Inhale 2 puffs into the lungs 2 times daily Qty: 1 Inhaler, Refills: 1 Associated Diagnoses: COPD (chronic obstructive pulmonary disease); COPD exacerbation CONTINUE these medications which have NOT CHANGED Details ATORVASTATIN CALCIUM PO Take 40 mg by mouth At Bedtime ASPIRIN PO Take 325 mg by mouth At Bedtime Cholecalciferol (VITAMIN D3 PO) Take 1,000 Units by mouth At Bedtime lisinopril (PRINIVIL,ZESTRIL) 20 MG tablet Take 20 mg by mouth At Bedtime amLODIPine (NORVASC) 10 MG tablet Take 10 mg by mouth At Bedtime atenolol (TENORMIN) 50 MG tablet Take 25 mg by mouth daily Condition on Discharge: Discharge condition: Stable Discharge vitals: Blood pressure 117/79, pulse 93, temperature 97.3 ??F (36.3 ??C), temperature source Oral, resp. rate 20, height 1.753 m (5' 9), weight 57.8 kg (127 lb 6.8 oz), SpO2 92 %. Code status on discharge: Full Code History of Illness: See detailed admission note for full details. Physical Exam: Blood pressure 117/79, pulse 93, temperature 97.3 ??F (36.3 ??C), temperature source Oral, resp. rate 20, height 1.753 m (5' 9), weight 57.8 kg (127 lb 6.8 oz), SpO2 92 %. Wt Readings from Last 1 Encounters: 04/30/15 57.8 kg (127 lb 6.8 oz) GENERAL: Comfortable. Cooperative. Using supplemental O2 PSYCH: pleasant, oriented, No acute distress. EYES: PERRLA, Normal conjunctiva. HEART: Regular rate and rhythm. No JVD. Pulses normal. No edema. LUNGS: Clear to auscultation but very diminished BS, minimal wheezing. ABDOMEN: Soft, no hepatosplenomegaly, normal bowel sounds. EXTREMETIES: No clubbing, cyanosis or ischemia SKIN: Dry to touch, No rash. Procedures other than Imaging: BiPAP Imaging: Results for orders placed or performed during the hospital encounter of 04/28/15 XR Chest Port 1 View Narrative CHEST ONE VIEW PORTABLE 04/28/2015 4:59 PM HISTORY: Cough. Shortness of breath. Hypotension. COMPARISON: 02/20/2012 Impression IMPRESSION: Bilateral infiltrates are present in the lower lung zones. Followup until clearing is recommended. There is old left-sided rib fractures. Heart size is normal. Pulmonary vasculature is normal. Lungs appear slightly hyperinflated. LEÓN ISAACS MD XR Chest 2 Views Narrative CHEST TWO VIEWS 05/03/2015 8:35 AM COMPARISON: Frontal chest x-ray 04/28/2015. HISTORY: Follow up infiltrates. Impression IMPRESSION: Probable small right pleural effusion again noted. Minimal right base atelectasis again noted. Posttraumatic/post thoracotomy changes to the posterolateral ribs on the left again noted. Streaky hyperdensity in the lateral left lung again noted possibly representing scarring. There are no new airspace opacities in either lung to suggest pneumonia. Heart size is normal. There is no evidence for congestive failure. There is no pneumothorax. EVERETTE DAVILA MD Consultations: No consultations were requested during this admission. Recent Lab Results: Recent Labs Lab 05/04/15 0713 05/02/15 0635 05/01/15 1435 04/30/15 0518 WBC -- 13.1* 9.6 -- 11.3* HGB -- 11.5* 12.0* -- 9.9* HCT -- 34.3* 35.0* -- 28.4* MCV -- 102* 101* -- 99 PLT 253 196 182 < > 152 < > = values in this interval not displayed. NA 135 05/02/2015 NA 138 04/30/2015 NA 138 04/29/2015 CHLORIDE 102 05/02/2015 CHLORIDE 106 04/30/2015 CHLORIDE 106 04/29/2015 BUN 11 05/02/2015 BUN 14 04/30/2015 BUN 26 04/29/2015 POTASSIUM 3.4 05/03/2015 POTASSIUM 3.4 05/02/2015 POTASSIUM 3.5 04/30/2015 CO2 26 05/02/2015 CO2 23 04/30/2015 CO2 21 04/29/2015 CR 0.55 05/02/2015 CR 0.48 04/30/2015 CR 0.85 04/29/2015 Pending Results: Unresulted Labs Ordered in the Past 30 Days of this Admission No orders found from 02/28/2015 to 04/29/2015. Discharge Instructions and Follow-Up: Discharge Procedure Orders Reason for your hospital stay Order Comments: Pneumonia with COPD exacerbation Follow-up and recommended labs and tests Order Comments: Please follow up with your primary doctor in about a week to re- evaluate your oxygenneeds. Please follow up with your sound technician supervisor at your convenience. Activity Order Comments: Your activity upon discharge: activity as tolerated Order Specific Question Answer Comments Is discharge order? Yes Full Code Oxygen Adult Order Comments: [facility] Order 2 liter(s) by nasal cannula with activity with use of portabletank. Expected treatment length is indefinite (99 months). Patients who qualify for home O2 coverage under the CMS guidelines require ABG tests or O2 sat readings obtained closest to, but no earlier than 2 days prior to the discharge, as evidence of the need for home oxygen therapy. Testing must be performed while patient is in the chronic stable state. See notes for O2 sats. I certify that this patient, Steve Gutierrez has been under my care and that I, or a nurse practitioner or physician's ex assistant/program director working with me, had a [id number] encounter that meets the [id number] encounter requirements with this patient on 05/04/2015. The patient, Steve Gutierrez was evaluated or treated in whole, or in part, for the following medical condition, which necessitates the use of the ordered oxygen. Treatment Diagnosis: COPD with pneumonia Attending Provider: León Aleman, * Physician signature: See electronic signature associated with these discharge orders Date of Order: May 04, 2015 Diet Order Comments: Follow this diet upon discharge: regular diet Order Specific Question Answer Comments Is discharge order? Yes Please have a repeat CXR done in 3-4 weeks to ensure resolution of the infiltrates seen on your chest x-ray. Total time spent in face to face contact with the patient and coordinating discharge was: 50 Minutes. documented in this encounter Discharge Instructions Discharge InstructionsLilli Moody - 05/04/2015 11:40 AM CDT Oxygen Provider: Arranged through [facility] [employer], contact number [phone]. Follow up phone called arranged for 05/06/15. If you have any questions or concerns please call the oxygen company directly. Lilli [phone] AttachmentsThe following attachments cannot be sent through Care Everywhere.COPD FLARE (UKRAINIAN)PNEUMONIA, DISCHARGE INSTRUCTIONS FOR (UKRAINIAN)documented in this encounter Medications at Time of Discharge Medication Sig Dispensed Refills Start Date End Date ASPIRIN PO Take 81 mg by mouth 0 03/27 daily levofloxacin (LEVAQUIN) Take 1 tablet (750 3 tablet 0 04/1905/07/2015 750 MG tabletIndications: mg) by mouth daily Pneumonia for 3 days albuterol (PROAIR HFA, Inhale 2 puffs into 1 Inhaler 3 04/1908/25/2016 PROVENTIL HFA, VENTOLIN the lungs every 4 HFA) 108 (90 BASE) MCG/ACT hours as needed for inhalerIndications: COPD shortness of breath (chronic obstructive / dyspnea or pulmonary disease) (H) wheezing amLODIPine (NORVASC) 10 MG Take 10 mg by mouth 0 11/09/2015 tablet At Bedtime atenolol (TENORMIN) 50 MG Take 25 mg by mouth 0 11/06/2015 tablet daily ATORVASTATIN CALCIUM PO Take 40 mg by mouth 0 08/25/2016 At Bedtime budesonide-formoterol Inhale 2 puffs into 1 Inhaler 1 05/0308/25/2016 (SYMBICORT) 160-4.5 the lungs 2 times MCG/ACT daily inhalerIndications: COPD (chronic obstructive pulmonary disease) (H), COPD exacerbation (H) Cholecalciferol (VITAMIN Take 1,000 Units by 0 11/06/2015 D3 PO) mouth At Bedtime lisinopril Take 20 mg by mouth 0 11/09 (PRINIVIL,ZESTRIL) 20 MG At Bedtime tablet documented as of this encounter Progress Notes Lilli Moody - 05/04/2015 11:39 AM CDT Oxygen order received and set up per physician prescription. Met with patient and offered choice of DME provider, patient chose [facility]. Paperwork received, order and equipment (POC) reviewed with patient and follow up phone call scheduled for 05/06/15. Out of pocket expenses and potential copay discussed with patient/family. T Michelle Teixeira RN - 05/04/2015 11:13 AM CDT Care Transitions Team: Following for Home 02 needs. MD ordered 02 on discharge. Pt was offered choice and [facility] 02 referral was made. Spoke with Millicent at [facility] who will be contacting pt.now to arrange Home 02. Updated emulsion operator regarding. Michelle Teixeira MAKEUP ARTIST CTS Care Transitions Team [phone] Andrews Stanley MD - 05/03/2015 7:36 AM CDT [facility] Hospitalist Progress Note Patient Name: Steve Gutierrez Provider: Andrews Stanley MD 05/03/2015 Initial presenting complaint/issue to hospital (Diagnosis): cough and shortness of breath Assessment and Plan: Steve Gutierrez is a 55-year-old man with history of hypertension, COPD, and two previous strokes. He presented to the ED for evaluation of cough and shortness of breath. He was found to have sepsis secondary to bilateral community-acquired pneumonia with acute exacerbation of COPD, acute respiratory failure, acute kidney injury, dehydration and lactic acidosis. He was admitted to the ICU because of the need for BIPAP. He was treated with Zosyn, Levaqin, and IVF hydration as well as IV then oral steroids. Hospital course was complicated by chest pain due to pneumonia and hyperglycemia due to solumedrol. He is slowly improving and still has a significant O2 requirement. Now holding further steroids. Assessment/Plan: 1. Sepsis due to community acquired pneumonia. Improved, Vitals are stable. We will Continue Zosyn and Levaquin for now, though if cultures remain negative likely stop zosyn in the next day and discharge with levaquin. Follow cultures. Continue Oxycodone and Tylenol as needed for pain due to pneumonia. Repeating CXR today. 2. Acute kidney injury. suspect this was secondary to sepsis and prerenal azotemia. Resolved. 3. Lactic acidosis, due to sepsis. Resolved. 4. Chronic obstructive pulmonary disease with acute exacerbation. Continue inhalers. Add advair as he has been off of controller inhalers for about a year. May need home O2. Has had steroids for six days, now will stop due to likely diminishing returns. 5. Acute respiratory failure, due to pneumonia and COPD with exacerbation. Continue to treat pneumonia and COPD. He will need a follow up CXR in a few weeks. Improved. 6. Hypertension: Atenolol 25 mg daily today. Have restarted lisinopril and will resume amlodipine aswell. 7. Drop in hemoglobin: without any acute signs or symptoms of bleeding. ?dilution. Stable and improved. 8. Hyperglycemia, due to solumedrol. Sugars labile. Now tapering steroids, will hold off on further lantus. Hold parameters on mealtime insulin. Continue novolog insulin sliding scale as well. 9. History of cerebrovascular accident. Continue Plavix. 10. Leukocytosis: likely due to steroids at this point. DVT prophylaxis with SQ heparin Dispo.. Likely home in 1-2 days. Interval History: Patient is feeling better today but still very SOB with any exertion Improved to 3.5 L by MO from 5-8 liters yesterday No new issues Working on ambulating more Hopeful for DC home tomorrow Physical Exam: Last Vital Signs: BP 148/94 mmHg Pulse 105 Temp(Src) 98.6 ??F (37 ??C) (Oral) Resp 18 Ht 1.753 m (5' 9) Wt 57.8 kg (127 lb 6.8 oz) BMI 18.81 kg/m2 SpO2 91% Intake/Output Summary (Last 24 hours) at 05/03/15 0738 Last data filed at 05/03/15 0633 Gross per 24 hour Intake 1810 ml Output 2825 ml Net -1015 ml GENERAL: Comfortable. Cooperative. Using supplemental O2 PSYCH: pleasant, oriented, No acute distress. EYES: PERRLA, Normal conjunctiva. HEART: Regular rate and rhythm. No JVD. Pulses normal. No edema. LUNGS: Clear to auscultation but very diminished BS, minimal wheezing. ABDOMEN: Soft, no hepatosplenomegaly, normal bowel sounds. EXTREMETIES: No clubbing, cyanosis or ischemia SKIN: Dry to touch, No rash. Medications: All current medications were reviewed. Data: All new lab and imaging data was reviewed. Labs: Recent Labs Lab 04/28/15 1645 04/28/15 1630 CULT No growth after 4 days No growth after 4 days Last Basic Metabolic Panel: NA 135 05/02/2015 POTASSIUM 3.4 05/03/2015 CHLORIDE 102 05/02/2015 TRAY 8.1 05/02/2015 CO2 26 05/02/2015 BUN 11 05/02/2015 CR 0.55 05/02/2015 GLC 51 05/02/2015 Recent Labs Lab 05/02/15 0635 05/01/15 1435 05/01/15 0714 04/30/15 0518 WBC 13.1* 9.6 -- 11.3* HGB 11.5* 12.0* -- 9.9* HCT 34.3* 35.0* -- 28.4* MCV 102* 101* -- 99 PLT 196 182 168 152 Imaging: Recent Results (from the past 48 hour(s)) XR Chest Port 1 View Narrative CHEST ONE VIEW PORTABLE 04/28/2015 4:59 PM HISTORY: Cough. Shortness of breath. Hypotension. COMPARISON: 02/20/2012 Impression IMPRESSION: Bilateral infiltrates are present in the lower lung zones. Followup until clearing is recommended. There is old left-sided rib fractures. Heart size is normal. Pulmonary vasculature is normal. Lungs appear slightly hyperinflated. LEÓN ISAACS MD Andrews Stanley MD - 05/02/2015 9:16 AM CDT [facility] Hospitalist Progress Note Patient Name: Steve Gutierrez Provider: Andrews Stanley MD 05/02/2015 Initial presenting complaint/issue to hospital (Diagnosis): cough and shortness of breath Assessment and Plan: Steve Gutierrez is a 55-year-old man with history of hypertension, COPD, and two previous strokes. He presented to the ED for evaluation of cough and shortness of breath. He was found to have sepsis secondary to bilateral community-acquired pneumonia with acute exacerbation of COPD, acute respiratory failure, acute kidney injury, dehydration and lactic acidosis. He was admitted to the ICU because of the need for BIPAP. He was treated with Zosyn, Levaqin, and IVF hydration as well as IV steroids. Hospital course was complicated by chest pain due to pneumonia and hyperglycemia due to solumedrol. He is slowly improving and still has a significant O2 requirement. Assessment/Plan: 1. Sepsis due to community acquired pneumonia. Improved, Vitals are stable. We will Continue Zosyn and Levaquin for now, though if cultures remain negative likely stop zosyn in the next day. Follow cultures. Continue Oxycodone and Tylenol as needed for pain due to pneumonia. 2. Acute kidney injury. I suspect this is secondary to sepsis and prerenal azotemia. Resolved. 3. Lactic acidosis, due to sepsis. Resolved. 4. Chronic obstructive pulmonary disease with acute exacerbation. Continue inhalers and steroid. He had been off of controller inhalers for about a year. May need home O2. 5. Acute respiratory failure, due to pneumonia and COPD with exacerbation. Continue to treat pneumonia and COPD. He will need a follow up CXR in a few weeks. 6. Hypertension: Atenolol 25 mg daily today. Have restarted lisinopril and will resume amlodipine inthe next day or so if stable. 7. Drop in hemoglobin: without any acute signs or symptoms of bleeding: will recheck hgb 8. Hyperglycemia, due to solumedrol. Sugars labile. Now tapering steroids, will hold off on further lantus. Hold parameters on mealtime insulin. Continue novolog insulin sliding scale as well. 9. History of cerebrovascular accident. Continue Plavix. DVT prophylaxis with SQ heparin Dispo.. Likely home in 2-3 days. Interval History: Patient is feeling better today but still very SOB with any exertion Remains on 8 L O2 via oxymizer. Otherwise no focal complaints Blood sugars better controlled, actually low this AM Holding further lantus Physical Exam: Last Vital Signs: BP 120/85 mmHg Pulse 105 Temp(Src) 97 ??F (36.1 ??C) (Oral) Resp 18 Ht 1.753 m (5' 9) Wt 57.8 kg (127 lb 6.8 oz) BMI 18.81 kg/m2 SpO2 95% Intake/Output Summary (Last 24 hours) at 05/02/15 0920 Last data filed at 05/02/15 0547 Gross per 24 hour Intake 1413 ml Output 2800 ml Net -1387 ml GENERAL: Comfortable. Cooperative. Using supplemental O2 PSYCH: pleasant, oriented, No acute distress. EYES: PERRLA, Normal conjunctiva. HEART: Regular rate and rhythm. No JVD. Pulses normal. No edema. LUNGS: Clear to auscultation but very diminished BS, minimal wheezing. ABDOMEN: Soft, no hepatosplenomegaly, normal bowel sounds. EXTREMETIES: No clubbing, cyanosis or ischemia SKIN: Dry to touch, No rash. Medications: All current medications were reviewed. Data: All new lab and imaging data was reviewed. Labs: Recent Labs Lab 04/28/15 1645 04/28/15 1630 CULT No growth after 3 days No growth after 3 days NA 135 05/02/2015 POTASSIUM 3.4 05/02/2015 CHLORIDE 102 05/02/2015 TRAY 8.1 05/02/2015 CO2 26 05/02/2015 BUN 11 05/02/2015 CR 0.55 05/02/2015 GLC 51 05/02/2015 Recent Labs Lab 05/02/15 0635 05/01/15 1435 05/01/15 0714 04/30/15 0518 WBC 13.1* 9.6 -- 11.3* HGB 11.5* 12.0* -- 9.9* HCT 34.3* 35.0* -- 28.4* MCV 102* 101* -- 99 PLT 196 182 168 152 Imaging: Recent Results (from the past 48 hour(s)) XR Chest Port 1 View Narrative CHEST ONE VIEW PORTABLE 04/28/2015 4:59 PM HISTORY: Cough. Shortness of breath. Hypotension. COMPARISON: 02/20/2012 Impression IMPRESSION: Bilateral infiltrates are present in the lower lung zones. Followup until clearing is recommended. There is old left-sided rib fractures. Heart size is normal. Pulmonary vasculature is normal. Lungs appear slightly hyperinflated. LEÓN ISAACS MD Iesha Davila MD - 05/01/2015 2:15 PM CDT [facility] Hospitalist Progress Note Patient Name: Steve Gutierrez Provider: Iesha Davila MD 04/30/2015 Initial presenting complaint/issue to hospital (Diagnosis): cough and shortness of breath Assessment and Plan: Steve Gutierrez is a 55-year-old man with history of hypertension, COPD, and two previous strokes. He presented to the ED for evaluation of cough and shortness of breath. He was found to have sepsis secondary to community-acquired pneumonia with acute exacerbation of COPD, acute respiratory failure, acute kidney injury, dehydration and lactic acidosis. He was admitted to the ICU because of the need forBIPAP. He was treated with Zosyn, Levaqin, and IVF hydration. Hospital course was complicated by chest pain due to pneumonia and hyperglycemia due to solumedrol. Problem list: 1. Sepsis due to community acquired pneumonia. Improved, Vitals are stable. We will Continue Zosyn and Levaquin. Follow cultures. Continue Oxycodone and Tylenol as needed for pain due to pneumonia. 2. Acute kidney injury. I suspect this is secondary to sepsis and prerenal azotemia. Resolved. 3. Lactic acidosis, due to sepsis. Resolved. 4. Chronic obstructive pulmonary disease with acute exacerbation. Continue inhalers and steroid 5. Acute respiratory failure, due to pneumonia and COPD with exacerbation. Continue to treat pneumonia and COPD. 6. Hypertension: Atenolol 25 mg daily today. Will restart lisinopril today and will hold amlodipine today (can likely be restarted over the next two days). 7. Drop in hemoglobin: without any acute signs or symptoms of bleeding: will recheck hgb 8. Hyperglycemia, due to solumedrol. Change solumedrol to daily. Add Lantus 8 units now and q am. Add prandial insulin. Continue novolog insulin sliding scale. 9. History of cerebrovascular accident. Continue Plavix. DVT prophylaxis with SQ heparin Dispo.. Likely home in 2-3 days. Interval History: Patient is feeling better today- less short of breath, slept well, pain better. No new problems. Continues to require O2. Physical Exam: Last Vital Signs: BP 120/82 mmHg Pulse 105 Temp(Src) 96.5 ??F (35.8 ??C) (Oral) Resp 22 Ht 1.753 m (5' 9) Wt 57.8 kg (127 lb 6.8 oz) BMI 18.81 kg/m2 SpO2 94% Intake/Output Summary (Last 24 hours) at 04/30/15 1512 Last data filed at 04/30/15 1156 Gross per 24 hour Intake 4271.67 ml Output 325 ml Net 3946.67 ml GENERAL: Comfortable. Cooperative. Using supplemental O2 PSYCH: pleasant, oriented, No acute distress. EYES: PERRLA, Normal conjunctiva. HEART: Regular rate and rhythm. No JVD. Pulses normal. No edema. LUNGS: Clear to auscultation but diminished BS, minimal wheezing. ABDOMEN: Soft, no hepatosplenomegaly, normal bowel sounds. EXTREMETIES: No clubbing, cyanosis or ischemia SKIN: Dry to touch, No rash. Medications: All current medications were reviewed. Data: All new lab and imaging data was reviewed. Labs: Recent Labs Lab 04/28/15 1645 04/28/15 1630 CULT No growth after 3 days No growth after 3 days NA 138 04/30/2015 NA 138 04/29/2015 NA 134 04/28/2015 CHLORIDE 106 04/30/2015 CHLORIDE 106 04/29/2015 CHLORIDE 96 04/28/2015 BUN 14 04/30/2015 BUN 26 04/29/2015 BUN 37 04/28/2015 POTASSIUM 3.5 04/30/2015 POTASSIUM 3.1 04/30/2015 POTASSIUM 3.5 04/29/2015 CO2 23 04/30/2015 CO2 21 04/29/2015 CO2 23 04/28/2015 CR 0.48 04/30/2015 CR 0.85 04/29/2015 CR 1.93 04/28/2015 Recent Labs Lab 05/01/15 0714 04/30/15 0518 04/28/15 2045 04/28/15 1630 WBC -- 11.3* -- 11.8* HGB -- 9.9* -- 14.3 HCT -- 28.4* -- 41.0 MCV -- 99 -- 101* PLT 168 152 136* 158 Imaging: Recent Results (from the past 48 hour(s)) XR Chest Port 1 View Narrative CHEST ONE VIEW PORTABLE 04/28/2015 4:59 PM HISTORY: Cough. Shortness of breath. Hypotension. COMPARISON: 02/20/2012 Impression IMPRESSION: Bilateral infiltrates are present in the lower lung zones. Followup until clearing is recommended. There is old left-sided rib fractures. Heart size is normal. Pulmonary vasculature is normal. Lungs appear slightly hyperinflated. LEÓN ISAACS MD Kaia Brennan, - 04/30/2015 9:59 PM CDT FORMERLY [facility], [facility]–1983 RCAT Date: 04/30/15 Admission Dx: Pneumonia Pulmonary History: COPD, current smoker Home Nebulizer/MDI Use: Yes, Advair Home Oxygen: No Acuity Level (RCAT flow sheet): Level 3 Aerosol Therapy initiated: Yes, Duoneb QID and Albuterol Q2prn Pulmonary Hygiene initiated: Deep breathing and good cough techniques Volume Expansion initiated: Incentive Spirometer Current Oxygen Requirements: 10L Oxymask Current SpO2: 92-94% Re-evaluation date: 05/03/15 Patient Education: Discuss with patient the indication, benefit and side effect of nebulizer. Will continue to monitor pt's respiratory status closely and wean off of O2 as tolerated. Kaia Brennan, RT 04/30/2015 10:02 PM See RT Assessments flow sheet for patient assessment scoring and Acuity Level Details. Viviane Gama, PT - 04/30/2015 4:53 PM CDT 04/30/15 1600 Quick Adds Type of Visit Initial PT Evaluation Living Environment (R) Lives With spouse Living Arrangements house Home Accessibility stairs to enter home Number of Stairs To Enter Home 3 Number of Stairs Within Home 12 (basement, does not need to go down) Stair Railings At Home present at both sides Living Environment Comment Pt lives with , also has hobby [employer] Self-Care Usual Activity Tolerance good Current Activity Tolerance poor Equipment Used at Home cane, straight Activity/Exercise/Self-Care Comment Pt reports he does need to pace himself and take his time with activities, but 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, and cares for his mother who has dementia (R) Functional Level Prior (R) Ambulation 1-->assistive equipment (R) Transferring 1-->assistive equipment (R) Toileting 0-->independent (R) Bathing 0-->independent (R) Dressing 0-->independent (R) Eating 0-->independent (R) Communication 0-->understands/communicates without difficulty (R) Swallowing 0-->swallows foods and liquids without difficulty (R) Cognition 0 - no cognition issues reported (R) Fall history within last six months no Prior Functional Level Comment Pt General Information Onset of Illness/Injury or Date of Surgery - Date 04/28/[address] Lagos Patient/Family Goals Statement Pt hoping to D/C home Pertinent History of Current Problem Steve Gutierrez is a 55-year-old man with history of hypertension, COPD, and two previous strokes. He presented to the ED for evaluation of cough and shortness of breath. He was found to have sepsis secondary to community-acquired pneumonia with acute respiratory failure, acute kidney injury and dehydration. Precautions/Limitations oxygen therapy device and L/min General Observations Noted resting tremor increased with mobility General Info Comments Pt agreeable to small amount of activity Cognitive Status Examination Orientation orientation to person, place and time Level of Consciousness alert Follows Commands and Answers Questions 100% of the time;able to follow multistep instructions Personal Safety and Judgment intact Memory intact Pain Assessment Patient Currently in Pain Yes, see Vital Sign flowsheet Range of Motion (ROM) ROM Comment WFL Strength Strength Comments R hip flexion 3+/5 otherwise WFL Bed Mobility Bed Mobility Comments SBA Transfer Skills Transfer Comments CGA for transfer to commode, sats decreased to 85% on 6 liters, increased to 7 liters, unable to resat to 90 within 1 min, increased to 9 liters. resating to 88% Gait Gait Comments able to take steps to commode, but becoming SOB and desating with this activity, futher gait declined. General Therapy Interventions Planned Therapy Interventions bed mobility training;gait training;strengthening;transfer training;risk factor education;home program guidelines;progressive activity/exercise Clinical Impression Criteria for Skilled Therapeutic Intervention yes, treatment indicated PT Diagnosis decreased functional mobility APTA Preferred Practice Pattern cardiopulmonary;musculoskeletal Influenced by the following impairments BEARD, R weakness Functional limitations due to impairments decreased ambulation/activity tolerance Rehab Potential fair, will monitor progress closely Rehab potential affected by currently decreased tolerance to activity Therapy Frequency` daily Predicted Duration of Therapy Intervention (days/wks) 3 days Anticipated Discharge Disposition Home with Assist;Home with Home Therapy (pending progress) Risk & Benefits of therapy have been explained Yes Patient, Family & other staff in agreement with plan of care Yes Total Evaluation Time Total Evaluation Time (Minutes) 10 León Lagos MD - 04/30/2015 3:03 PM CDT [facility] Hospitalist Progress Note Patient Name: Steve Gutierrez Provider: León Lagos MD 04/30/2015 Initial presenting complaint/issue to hospital (Diagnosis): cough and shortness of breath Assessment and Plan: Steve Gutierrez is a 55-year-old man with history of hypertension, COPD, and two previous strokes. He presented to the ED for evaluation of cough and shortness of breath. He was found to have sepsis secondary to community-acquired pneumonia with acute exacerbation of COPD, acute respiratory failure, acute kidney injury, dehydration and lactic acidosis. He was admitted to the ICU because of the need forBIPAP. He was treated with Zosyn, Levaqin, and IVF hydration. Hospital course was complicated by chest pain due to pneumonia and hyperglycemia due to solumedrol. Problem list: 1. Sepsis due to community acquired pneumonia. He had leukocytosis, marginal blood pressure, lactic acidosis, and acute renal failure. Improving. Continue Zosyn and Levaquin. Follow cultures. Continue Oxycodone and Tylenol as needed for pain due to pneumonia. No longer needing BIPAP so will transfer to Med/surg. 2. Acute kidney injury. I suspect this is secondary to sepsis and prerenal azotemia. Resolved. 3. Lactic acidosis, due to sepsis. Resolved. 4. Chronic obstructive pulmonary disease with acute exacerbation. Continue solumedrol, but change todaily. 5. Acute respiratory failure, due to pneumonia and COPD with exacerbation. Continue to treat pneumonia and COPD as discussed above. 6. Poor sleep. Better last night with Restoril. Continue Restoril as needed to help sleep. 7. Hypertension: BP was low but has Improved. Resume Atenolol 25 mg daily today. Continue to hold lisinopril and amlodipine (these can likely be restarted over the next two days). 8. Hyperglycemia, due to solumedrol. Change solumedrol to daily. Add Lantus 8 units now and q am. Add prandial insulin. Continue novolog insulin sliding scale. 9. History of cerebrovascular accident. Continue Plavix. DVT prophylaxis with SQ heparin Dispo. To med/surg today. Start PT. Likely home in 2-3 days. Interval History: Patient is feeling better today- less short of breath, slept well, pain better. No new problems. Physical Exam: Last Vital Signs: BP 113/86 mmHg Pulse 105 Temp(Src) 96.8 ??F (36 ??C) (Oral) Resp 22 Ht 1.753 m (5' 9) Wt 57.8 kg (127 lb 6.8 oz) BMI 18.81 kg/m2 SpO2 92% Intake/Output Summary (Last 24 hours) at 04/30/15 1512 Last data filed at 04/30/15 1156 Gross per 24 hour Intake 4271.67 ml Output 325 ml Net 3946.67 ml GENERAL: Comfortable. Cooperative. PSYCH: pleasant, oriented, No acute distress. EYES: PERRLA, Normal conjunctiva. HEART: Regular rate and rhythm. No JVD. Pulses normal. No edema. LUNGS: Clear to auscultation but diminished, normal Respiratory effort. ABDOMEN: Soft, no hepatosplenomegaly, normal bowel sounds. EXTREMETIES: No clubbing, cyanosis or ischemia SKIN: Dry to touch, No rash. Medications: All current medications were reviewed. Data: All new lab and imaging data was reviewed. Labs: Recent Labs Lab 04/28/15 1645 04/28/15 1630 CULT No growth after 2 days No growth after 2 days NA 138 04/30/2015 NA 138 04/29/2015 NA 134 04/28/2015 CHLORIDE 106 04/30/2015 CHLORIDE 106 04/29/2015 CHLORIDE 96 04/28/2015 BUN 14 04/30/2015 BUN 26 04/29/2015 BUN 37 04/28/2015 POTASSIUM 3.5 04/30/2015 POTASSIUM 3.1 04/30/2015 POTASSIUM 3.5 04/29/2015 CO2 23 04/30/2015 CO2 21 04/29/2015 CO2 23 04/28/2015 CR 0.48 04/30/2015 CR 0.85 04/29/2015 CR 1.93 04/28/2015 Recent Labs Lab 04/30/15 0518 04/28/15 2045 04/28/15 1630 WBC 11.3* -- 11.8* HGB 9.9* -- 14.3 HCT 28.4* -- 41.0 MCV 99 -- 101* PLT 152 136* 158 Imaging: Recent Results (from the past 48 hour(s)) XR Chest Port 1 View Narrative CHEST ONE VIEW PORTABLE 04/28/2015 4:59 PM HISTORY: Cough. Shortness of breath. Hypotension. COMPARISON: 02/20/2012 Impression IMPRESSION: Bilateral infiltrates are present in the lower lung zones. Followup until clearing is recommended. There is old left-sided rib fractures. Heart size is normal. Pulmonary vasculature is normal. Lungs appear slightly hyperinflated. LEÓN ISAACS MD León Lagos MD - 04/29/2015 5:32 PM CDT [facility] Hospitalist Progress Note Patient Name: Steve Gutierrez Provider: León Lagos MD 04/29/2015 Initial presenting complaint/issue to hospital (Diagnosis): cough and shortness of breath Assessment and Plan: Steve Gutierrez is a 55-year-old man with history of hypertension, COPD, and two previous strokes. He presented to the ED for evaluation of cough and shortness of breath. He was found to have sepsis secondary to community-acquired pneumonia with acute respiratory failure, acute kidney injury and dehydration. Problem list: 1. Sepsis due to community acquired pneumonia. He had leukocytosis, marginal blood pressure, lactic acidosis, and acute renal failure. Continue Zosyn and Levaquin. Follow cultures. Oxycodone and Tylenol as needed for pain due to pneumonia. 2. Acute kidney injury. I suspect this is secondary to sepsis and prerenal azotemia. Resolved. 3. Lactic acidosis, due to sepsis. Resolved. 4. Chronic obstructive pulmonary disease with acute exacerbation. Continue solumedrol, but change todaily. 5. Acute respiratory failure, due to pneumonia and COPD with exacerbation. Continue to treat pneumonia and COPD as discussed above. Continue BIPAP as needed. Restoril as needed to help sleep. 6. Hypertension: Improved. Likely will resume lisinopril and amlodipine over the next two days. 7. Hyperglycemia, due to solumedrol. Change solumedrol to daily. Add Lantus 8 units now and q am. Add prandial insulin. Continue novolog insulin sliding scale. 8. History of cerebrovascular accident. Continue Plavix. Interval History: Patient is doing a little better with less shortness of breath. He has some chest pain with palpation and coughing. He is having difficulty sleeping. Physical Exam: Last Vital Signs: BP 117/78 mmHg Pulse 105 Temp(Src) 97.7 ??F (36.5 ??C) (Axillary) Resp 28 Ht 1.753 m (5' 9) Wt 59.8 kg (131 lb 13.4 oz) BMI 19.46 kg/m2 SpO2 94% Intake/Output Summary (Last 24 hours) at 04/29/15 1747 Last data filed at 04/29/15 1200 Gross per 24 hour Intake 5977.5 ml Output 1600 ml Net 4377.5 ml GENERAL: Comfortable. Cooperative. PSYCH: pleasant, oriented, No acute distress. EYES: PERRLA, Normal conjunctiva. HEART: Regular rate and rhythm. No JVD. Pulses normal. No edema. LUNGS: Coarse BS in both lung bases, normal Respiratory effort. ABDOMEN: Soft, no hepatosplenomegaly, normal bowel sounds. EXTREMETIES: No clubbing, cyanosis or ischemia SKIN: Dry to touch, No rash. Medications: All current medications were reviewed. Data: All new lab and imaging data was reviewed. Labs: Recent Labs Lab 04/28/15 1645 04/28/15 1630 CULT No growth after 14 hours No growth after 14 hours NA 138 04/29/2015 NA 134 04/28/2015 NA 137 02/21/2012 CHLORIDE 106 04/29/2015 CHLORIDE 96 04/28/2015 CHLORIDE 100 02/21/2012 BUN 26 04/29/2015 BUN 37 04/28/2015 BUN 13 02/21/2012 POTASSIUM 3.5 04/29/2015 POTASSIUM 4.5 04/28/2015 POTASSIUM 4.5 02/21/2012 CO2 21 04/29/2015 CO2 23 04/28/2015 CO2 27 02/21/2012 CR 0.85 04/29/2015 CR 1.93 04/28/2015 CR 0.64 02/21/2012 Recent Labs Lab 04/28/15 2045 04/28/15 1630 WBC -- 11.8* HGB -- 14.3 HCT -- 41.0 MCV -- 101* PLT 136* 158 Imaging: Recent Results (from the past 48 hour(s)) XR Chest Port 1 View Narrative CHEST ONE VIEW PORTABLE 04/28/2015 4:59 PM HISTORY: Cough. Shortness of breath. Hypotension. COMPARISON: 02/20/2012 Impression IMPRESSION: Bilateral infiltrates are present in the lower lung zones. Followup until clearing is recommended. There is old left-sided rib fractures. Heart size is normal. Pulmonary vasculature is normal. Lungs appear slightly hyperinflated. LEÓN ISAACS MD Jo Hoffmann, RT - 04/29/2015 2:20 PM CDT RT Note; Patient on/off BIPAP 10/5, 40% this shift. On 5L NC When off BIPAP. O2 sats low to mid 90'son NC, high 90's when on BIPAP. BS diminished, course with congested cx. Duoneb given Q4. Continue to monitor, BIPAP as needed. Jo Hoffmann [employer] MA[employer] Jose M Correa, RT - 04/29/2015 6:27 AM CDT Pt was on the Bipap most of the night. 10/5 r12 40%. He is currently on a NC @ 4 Lpm. He was given nebulizer treatments Q4. Alex Bernard, - 04/28/2015 10:04 PM CDT Pt placed on BIPAP 10/5, 40%. ABG's to be drawn in 1hour. Bs diminished with crackles. Spo2 97%. RT will continue to monitor. León Aleman MD - 04/28/2015 6:53 PM CDT 40 min spent on critical care. Updated Dr Major in tele ICU.- She recommended Bipap overnight. documented in this encounter H&P Notes León Aleman MD - 04/28/2015 7:02 PM CDT CHIEF COMPLAINT: Cough and shortness of breath. HISTORY OF PRESENT ILLNESS: Mr. Steve Gutierrez is a 55-year-old man who presents with 2 days of productive cough and dyspnea. He has also had shortness of breath at rest and had some dry heaving periodically. He has had minimal oral intake as he has not had any appetite. He has not had any fevers or chills. PAST MEDICAL HISTORY: 1. Hypertension. 2. COPD, which is mild by history. 3. 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 MEDICATIONS: 1. Plavix, although he apparently stopped this a month ago for unclear reasons. 2. Combivent as needed. He has not used for several months. The remainder of medication have not yet been reconciled but include amlodipine, aspirin, atenolol, atorvastatin, cholecalciferol, Advair, lisinopril. ALLERGIES: No known drug allergies. FAMILY HISTORY: His father had lung cancer, a sister had breast cancer. SOCIAL HISTORY: He smokes about 10 cigarettes a day and has been trying to cut down. He lives with his . He is retired. 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 REVIEW OF SYSTEMS: A complete 10-point review of systems was performed, the pertinent positives can be seen above in history of present illness. PHYSICAL EXAMINATION: VITAL SIGNS: Blood pressure is 92/67, pulse 105, oxygen saturations 89% on room air, 91% on 1 liter of oxygen by nasal cannula, temperature 98.6. GENERAL: He is alert, pleasant and cooperative, appears tired, in no apparent distress. HEENT: Pupils are round and equal. Conjunctiva, sclerae and lids are within normal limits. NECK: Supple, with no masses, no thyromegaly. Oropharynx is dry and pink. Teeth and lips are within normal limits. CARDIOVASCULAR: Heart regular rhythm, no murmurs. LUNGS: Clear to auscultation bilaterally with decreased breath sounds. Normal respiratory effort. ABDOMEN: Soft, nontender. There are no masses. Bowel sounds are active. EXTREMITIES: There is no edema. NEUROLOGIC: Decreased strength in the right side compared to the left. Sensation is intact in all 4 extremities. Cranial nerves II through XII are grossly intact. PSYCHIATRIC: Mood and affect appear within normal limits. SKIN: Some chronic appearing skin changes on his face. LABORATORY DATA: White blood cell count 11.8, hemoglobin 14.3, platelets 158,000. pH 7.19. Sodium 134, potassium 4.5, chloride 96, bicarbonate 23, BUN 37, creatinine 1.9, glucose 111. Lactate is 1.7, albumin 2.9. Chest x-ray shows bilateral lower lobe infiltrates. I personally reviewed the chest x-ray. ASSESSMENT AND PLAN: Mr. Gutierrez is a 55-year-old man who presents with possible sepsis secondary tocommunity-acquired pneumonia, acute respiratory failure secondary to pneumonia, acute kidney injury and dehydration. 1. Pneumonia. He is afebrile but is hypoxic and short of breath with cough and does have bilateral infiltrates. We will treat with Zosyn and levofloxacin for presumed community-acquired pneumonia causing sepsis. He will be given supplemental oxygen as needed. He also will be treated with albuterol nebs as he does have a history of COPD. We will defer steroid treatment for now. He will be given a nicotine patch. He does have lactic acidosis and we will monitor his lactate level as well. 2. Acute kidney injury. I suspect this is secondary to sepsis and/or a prerenal azotemia. He has hadpoor oral intake over the past couple of days. His blood pressure has improved with IV hydration. Wewill continue with IV fluids and adjust as needed. We will monitor his renal function and hold lisinopril. 3. Chronic obstructive pulmonary disease. We discussed smoking cessation. He is interested in starting a nicotine patch and trying to quit smoking during this hospitalization. 4. Hypertension: He is currently hypotensive and we will hold lisinopril and amlodipine. 5. History of cerebrovascular accident. He apparently was on Plavix in the past. We will resume thisand determine if he needs aspirin or Plavix upon discharge. LEÓN ALEMAN MD MT: [id number] Name: STEVE GUTIERREZ Account: [id number] : 1960 Admitted: [id number] Document: [id number] documented in this encounter ED Notes Sandrita Bhatt RN - 04/28/2015 6:23 PM CDT Additional [facility] Inpatient Admission Information (if known or available) Steve arrived to the ED on 04/28/2015 complaining of shortness of breath, cough. A&O: awake, alert and oriented to time, place and person Fx mobility: Ambulates independently Home demo: lives with a significant other Pain ratin (No pain) Patient's pain goal: 0 [place] concerns: 1. History of COPD 2. Low blood pressure, elevated lactic acid, elevated BNP Sandrita Bhatt RN - 04/28/2015 6:20 PM CDT Hospitalist at bedside. Sandrita Bhatt RN - 04/28/2015 5:23 PM CDT MD at bedside with test results and plan of care. Sandrita Bhatt RN - 04/28/2015 5:04 PM CDT Patient resting on cart. Coughing occasionally. Hands cool to touch. Breathing nonlabored. IV fluidsinfusing. Shweta Martins MD - 04/28/2015 4:34 PM CDT History Chief Complaint: Shortness of Breath HPI Steve Gutierrez is a 55 year old male who presents with shortness of breath. He reports having a cough for the past two days and has a history of COPD. He also has had hot flashes, subjective fever, chest pain from coughing. He tried albuterol without improvement. Breathing is not worse while lying down and there is no associated leg swelling. He has recently been exposed to pneumonia and is concerned he has the same. He denies nausea, vomiting, diarrhea, abdominal pain, dysuria, or other symptoms. Cardiac/PE/DVT risk factors: The patient has a history of smoking. He reports no family history of CAD. The patient denies any personal or familial history of PE, DVT, or clotting disorder. He denies any recent travel, surgeries, or immobilizations. Allergies: No Known Allergies Medications: Atorvastatin Asprinin Vitamin D3 Zestril Norvasc Tenormin Advair Nicoderm Deltasone Combivent Past Medical History: COPD High cholesterol HTN Past Surgical History: History reviewed. No pertinent past surgical history. Family / Social History: Cancer: Father Cancer: Sister Social History: Smoking Status: Current Every Day Smoker- 1.00 packd/day for 28 years Alcohol Use: Yes, 0.1 ox/week Marital Status: Review of Systems Constitutional: Positive for fever. Positive for hot flashes Respiratory: Positive for cough, shortness of breath and wheezing. Cardiovascular: Positive for chest pain. Negative for leg swelling. All other systems reviewed and are negative. Physical Exam First Vitals: BP: 78/56 mmHg (initial 69/47 on right, recheck on left 78/56) Pulse: 105 Temp: 98.8 ??F (37.1 ??C) Resp: 28 SpO2: 89 % Physical Exam Eyes: Sclera white; Pupils are equal and round ENT: External ears and nares normal CV: Rate as above with regular rhythm Resp: Bilateral bases diminished; no wheeze GI: Abdomen is soft, non-tender, non-distended No rebound tenderness or peritoneal features MS: Moves all extremities Skin: Hands and feet cool, DP and radial pulses palpable Neuro: Speech is normal and fluent. No apparent deficit. Emergency Department Course ECG performed at 16:25. ECG read at 16:40. Indication: Shortness of breath. Rate 105 bpm. IL interval 160. QRS duration 78. QT/QTc 330/436. P-R-T axes 75 77 65. Sinus tachycardia. Otherwise normal ECG. No significant change compared to EKG dated 02/20/2012. Cardiac thoracic exam 16:37 Imaging: Radiographic findings were communicated with the patient who voiced understanding of the findings. Portable Chest XR per radiology: Bilateral infiltrates are present in the lower lung zones. Followup until clearing is recommended. There is old left-sided rib fractures. Heart size is normal. Pulmonary vasculature is normal. Lungs appear slightly hyperinflated. Laboratory: CBC: WBC 11.8 (H) HGB 14.3 (WNL) PLT 158 (WNL) Absolute Neutrophil 10.3 (H) Absolute Metamyelocytes 0.2 (H) Absolute Promyelocytes 0.2 (H) Rest WNL CMP: Cr 1.93 (H) Glucose 111 (H) Anion gap 15 (H) BUN 37 (H) GFR 36 (L) Albumin 2.9 (L) Protein total 6.7 (L) Rest WNL BNP: 2685 (WNL) Blood gas venous and oxyhgb: pH 7.19 (LL) pCO2 54 (H) pO2 17 (L) Rest WNL Blood culture 1: Pending Blood culture 2: Pending 1630: Troponin I: <0.015 (WNL) INR: 1.16 (H) PTT: 32 (WNL) 1630: Lactate: 4.7 (HH) 1750: Lactate: 4.1 (H) Interventions: 1648: Normal Saline, 1000 mL, IV injection 1649: Normal Saline, 1000 mL, IV injection 1802: Levaquin, 750 mg, IV injection 1802: Zosyn, 3.375 g, IV injection 1821: Normal Saline, 1000 mL, IV injection [facility] Procedure Note Limited Bedside ED Ultrasound, Chest: PROCEDURE: PERFORMED BY: Dr. Martins INDICATIONS/SYMPTOM: Hypotension; Shortness of breath PROBE: Cardiac BODY LOCATION: Subxyphoid; bilateral chest FINDINGS: No pericardial effusion; LV > RV; consolidation bilateral lung bases; no PTx INTERPRETATION: Same IMAGE DOCUMENTATION: Images were archived to hard drive. Emergency Department Course: I performed a physical examination of the patient as documented above. An ECG was obtained. A peripheral IV was established. Blood was drawn and sent to the laboratory for testing, see above results. Bedside ultrasound performed while nurses established 2nd IV Portable CXR obtained Patient rechecked, BP improving with total 1L NS in The patient received the above interventions. 17:02 Checked on Patient, MAPs consistently over 65 after 2L IVF Repeat lactic improving but elevated, 3rd L NS ordered. 18:18: I spoke with Dr. Derek Aleman and Dr. Fisher of the hospitalist service regarding patient's presentation, findings, and plan of care. Patient's BP remains stable with MAP > 65. Hands and feet now normal color. Family in room and updated. Findings and plan explained to the Patient who consents to admission. Discussed the patient with , who will admit the patient to a ICU bed for further monitoring, evaluation, and treatment. Impression & Plan Medical Decision Making: Mr. Hill is here for evaluation of shortness of breath. I was called immediately into the room due to abnormal vital signs with hypotension and hypoxia. I am concerned that he may be having severe sepsis secondary to pneumonia. The differential also includes new onset pulmonary edema with associated heart failure or missed NH; PE; PTx; pleural effusion. He has immediate potential for hypoperfusion to all of his organs secondary to the low blood pressure. Two large bore IVs were established and fluids started. Work up was notable for elevated lactic acid and a VBG that demonstrates acidosis as we ll. Portable chest x-ray demonstrates infiltrates in the bilateral lung bases which can be seen withboth infection and pulmonary edema. Bedside ultrasound demonstrates decent cardiac squeeze with no RV strain and no effusion. I think that based on his recent exposure to pneumonia, his coughing and his elevated white blood cell count that this is likely infectious in origin. Blood work also demonstrates end organ dysfunction in the form of acute renal insufficiency which may be pre-renal in origin and hopefully will improve with IV fluids. After two liters of IV fluids, his MAPs were above 65 and Burton not feel that central line or pressors are indicated at this time. Repeat lactic acid was improving at 4.1 and third liter of IV fluids was ordered. Antibiotics were started after blood cultures were obtained and he will be admitted to the intensive care unit. Patient and family aware of severity of illness and potential for decompensation. Critical care: 45 minutes Diagnosis: ICD-9-CM 1. Severe sepsis(995.92) 995.92 2. Pneumonia 486 3. Acute renal insufficiency 593.9 ICoral, am serving as a scribe on 04/28/2015 at 16:30 to personally document services performed by Dr. Meier based on my observations and the provider's statements to me. Shweta Martins MD 04/29/15 1328 Radha Suh RN - 04/28/2015 4:19 PM CDT A&Ox3, ABC's intact Pt c/o cough and shortness of breath for 2 days, concerned he has pneumonia. PMH:see hx Meds: [facility] up to date per pt documented in this encounter Miscellaneous Notes Summary of Care - Shelby Moody RN - 05/04/2015 10:28 AM CDT Per PT O2 sats prior to activity were 92% on 3L, 86% on room air with activity and 89% on room air after activity. 93% on 3 L nasal cannula post activity Plan of Care - Víctor Marc, PT - 05/04/2015 10:22 AM CDT Problem: Goal Outcome Summary Goal: Goal Outcome Summary PT- goals are met, per him Is discharging home today, no need for continued skilled PT, Pt aware to ask PCP for orders if he feels, may benefit from Pulm Rehab (COPD).Amb with RW Ind 200 plus feet. No DME needs Physical Therapy Discharge Summary Reason for therapy discharge: Discharged to home. Progress towards therapy goal(s). See goals on Care Plan in [facility] electronic health record for goal details. Goals met. Pt progressed well with IP PT, all goals met, ambulating indep with walker. Therapy recommendation(s): Consider OP Pulmonary Rehab (COPD), plan to consult with PCP regarding this. Plan of Care - Trice Sher RN - 05/04/2015 4:37 AM CDT Problem: Goal Outcome Summary Goal: Goal Outcome Summary Problem: Goal Outcome Summary Goal: Goal Outcome Summary Outcome: Improving Problem: Individualization Goal: 1. Patient Specific Preference Outcome: Improving Pt cont with NC O2 at 3 L. Will be discharged with home O2. Cont to have congested productive cough.VSS, Plan of Care - Trice Sher RN - 05/03/2015 9:30 PM CDT Problem: Goal Outcome Summary Goal: Goal Outcome Summary Outcome: Improving Problem: Individualization Goal: 1. Patient Specific Preference Outcome: Improving Pt cont with congested productive cough. Mucinex given. Lung sounds has [place] [employer] Lung sounds that are diminished. On 3L O2. Pain to the lower back receiving oxycodone and tylenol with relief. ? Dc tomorrow. Plan of Care - Mya Oquendo RN - 05/03/2015 11:12 AM CDT Problem: Individualization Goal: 1. Patient Specific Preference Outcome: Improving Patient on 5 lpm/NC. Ambulated in the [place] with PT; 02 sats decreased to 88%. Mild BEARD. Up to chair for all meals. Congested, productive cough; mucinex ordered. LS diminished in BLL. Continue IV antibiotics.Complains of pain in low back, prn oxycodone and tylenol. Possible DC with home 02 ? Tomorrow? Addendum- Patient weaned to 3 lpm/NC; 02 sats 93%. Ambulated in the [place] x3 this shift and up in thechair for all meals. Pt states feeling better. Plan of Care - Mirlande Sandhu PTA - 05/03/2015 8:46 AM CDT Problem: Goal Outcome Summary Goal: Goal Outcome Summary PT - Pt amb 125' x 2 with ww with 5L of O2 with supervision. Note O2 sats to be 91% @ beginning and during sats were 86% with 45 sec to recover to 90% with PLB. Pt did require 1 seated rest break priorto performing stairs and amb back to room. Pt also performed 5 steps with both rails with supervision. PT plans to return home given current improvement and length of stay this seems reasonable. Plan of Care - Shweta Casarez RN - 05/03/2015 4:38 AM CDT Problem: Goal Outcome Summary Goal: Goal Outcome Summary Outcome: Improving Pt initially upset re: being awoken for 0000 heparin dose-stated he hadnt slept well prior night shifts; o2 at 5lpm via oxymizer cannula sats mid nineties at rest; rates upper back pain 01/26 with goal 01/26-administered tylenol and oxycodone 2.5mg-pt awoke at 0400 for toileting and stated he had slept well in between checks; after strong productive cough of thick yellow sputum lungs were diminished t/o but no wheeze/crackle; refuses pcds; bilat hand tremors-not new per pt s/p h/o 2 CVA's; aspiration precautions in place; IV Zosyn/Levaquin;l heparin sq q8hr; SBA at night for elimination needs 0600-pt request to try o2 NC at 5lpm; after 20 min o2 sat at rest 94-96% with HR 70's; weaned down to 4lNC at 0700-reported to day nurse Plan of Care - Sandy Haro RN - 05/02/2015 10:26 PM CDT Problem: Goal Outcome Summary Goal: Goal Outcome Summary Outcome: Improving Oxygen weaned down to 5l oxymizer with sat 94-95%. Pain eased with po meds. Up in chair to eat supper family brought him. Assisted back to bed with one, still very weak. Lungs diminished. Plan of Care - Chastity Rodgers RN - 05/02/2015 2:15 PM CDT Problem: Goal Outcome Summary Goal: Goal Outcome Summary Outcome: No Change On 8 liters of oxygen per oximyzer, lungs diminished, dyspneic on exertion, ambulated with PT this am, up in chair x 1, declined at noon Plan of Care - Amy Andrade RN - 05/02/2015 8:39 AM CDT Problem: Individualization Goal: 1. Patient Specific Preference Outcome: No Change Pt alert and oriented. Vs 97.0, 20, 80, 120/85, 96% . Lung sounds wheezing noted. Will continue to monitor. Plan of Care - Katelin Allan PTA - 05/02/2015 8:39 AM CDT Problem: Goal Outcome Summary Goal: Goal Outcome Summary PT- PT plans to return home given current improvement and length of stay this seems reasonable. Needs to wean off O2 currently at 8l. Plan of Care - Crystal Lott RN - 05/01/2015 11:00 PM CDT Problem: Goal Outcome Summary Goal: Goal Outcome Summary Outcome: Improving Pt now on 8L oximizer cannula. sats 92-95%. Taking oxycodone for pain x 1 this shift, rates pain a 5in lower back area. Numbness on R side > than L side. This is his baseline. Voiding well, appetite improving, denies nausea and heartburn is much better today than yesterday, on zantac po. LUngs arediminished, +green in color, good cough, using IS upto 1500, iv at 20cc. BS 140 and 173. Continues with nebs, solumedrol, oxygen. Plan of Care - Shelby Moody RN - 05/01/2015 2:12 PM CDT Problem: Goal Outcome Summary Goal: Goal Outcome Summary Outcome: No Change Areas of concern: activity still limited d/t patient being tired. Walked in room with PT, PT reportsHR increased to 138 bpm so did not feel comfortable walking him any further. Still requiring 10 L oxymizer or oximask. Also still short of breath with activity. Lungs diminished, productive, yellow cough. Areas of improvement: appetite better. Blood sugars stable even though declined insulin. Blood cultures so far negative. Plan: Solumedrol, nebs and IV antibiotics continue. Continue to encourage increase in activity. Anticipate discharge will be another couple days, patient voiced yesterday that he would like to discharge Sunday b/c of his son's birthday. Plan of Care - Katelin Allan PTA - 05/01/2015 1:58 PM CDT Problem: Goal Outcome Summary Goal: Goal Outcome Summary PT- pt reports felling better today able to amb with RW in room with assist for IV pole and O2 HR to130's with activity and O2 down to 85-88 with 10l. Continue to plan for return home Plan of Care - Jennifer Triana RN - 05/01/2015 5:13 AM CDT Problem: Pneumonia (Adult) Goal: Signs and Symptoms of Listed Potential Problems Will be Absent or Manageable (Pneumonia) Signs and symptoms of listed potential problems will be absent or manageable by discharge/transitionof care (reference Pneumonia (Adult) CPG). Outcome: Improving VSS, HR irregular 80's to 100's LS diminished BS active Productive cough Oxyplus mask at 10L Moderate tremor Neb txt as needed Oxycodone 5mg for pain Up to bathroom with assist of 1 Plan of Care - Crystal Lott RN - 04/30/2015 10:04 PM CDT Problem: Goal Outcome Summary Goal: Goal Outcome Summary Outcome: No Change Pt is on 10L oxiplus mask, +cough coarse, yellow in color, BEARD, pt is a mouth breather. Nebs as scheduled. bipap in room using it prn. Pt's pain level is a 6 down to a 4, using oxycodone for pain. R side of extremities is more numb than the L side. Blood sugars 114 and 97, held lantus and insulin withmeals. Pt did not eat supper tonight. Pt c/o nausea/heartburn. Medicated with zofran and zantac withrelief. Pt had one bout of diarrhea earlier on day shift in the ICU. On Levaquin , zosyn and solumedrol. Up with one sba. Plan of Care - Viviane Gama, PT - 04/30/2015 5:05 PM CDT Problem: Goal Outcome Summary Goal: Goal Outcome Summary PT: PT eval limited, sats decreasing with small amount of mobility, BSC transfer. Pt dropping to 84%with activity on 6 liters of O2. Pt needing increase to 8 L after 2 mins of PLB, 88% following. Moving well, CGA for transfer,, FWW left in room for energy conservation. PT recommends home pending progress with mobility and O2 weaning. Plan of Care - Shelby Moody RN - 04/30/2015 3:56 PM CDT Problem: Goal Outcome Summary Goal: Goal Outcome Summary Outcome: No Change Areas of concern: still requiring 6 L oxymizer. BEARD but lungs sound clear. Areas of improvement: reports eating his first real meal today. Plan: BIPAP in the room as needed. IV antibiotics continues. Blood sugar monitoring continues d/t IVsolumedrol. Have encouraged frequent, small walks and he verbalizes that is a goal for him too. Patient would like to be able to discharge Sunday as it is his son's birthday. Provider Notification - Uri Vance, RN - 04/30/2015 5:59 AM CDT Call placed to tele-hub regarding low potassium level 3.[address] for replacement. New orders for potassium replacement protocol ordered. Plan of Care - Uri Vance RN - 04/30/2015 5:28 AM CDT Problem: Pneumonia (Adult) Goal: Signs and Symptoms of Listed Potential Problems Will be Absent or Manageable (Pneumonia) Signs and symptoms of listed potential problems will be absent or manageable by discharge/transitionof care (reference Pneumonia (Adult) CPG). Outcome: Improving Slept better tonight with restoril. Oxycodone x1 for back pain. Some tremors and unsteadiness with activities. A1 to commode. Neuro: A+Ox4, residual R weakness from old CVA. Cards: Tele- SR/ST heart rate 80-100. BP stable Resp: L/S coarse, productive cough. 6L oxiplus mask 95%- dislikes BiPAP d/t claustrophobia and dryness. GI: WNL : Concentrated urine, uses urinal. Skin: Intact, bruising. No edema, +2 pulses. Pt states numbness in extremities from previous CVA. Lines: Peripheral IV x2 Drips: 0.9% saline at 125m/hr. Plan: Continue on levaquin and zosyn for PNA. BiPAP PRN. Steroid taper. Currently denies need for nicotine patch- encourage quitting smoking. Insulin added for steroid induced hyperglycemia. Plan of Care - Hakeem Haynes RN - 04/29/2015 6:50 PM CDT Problem: Goal Outcome Summary Goal: Goal Outcome Summary Outcome: No Change Patient alert and oriented, pain, back and ribs after echo relieved with roxicodone, tachypnea, LS coarse diminished, able to tolerate BIPAP for longer periods, performed healing touch with relief of anxiety, blood sugars elevated MD notified and orders placed, tele SR, blood pressures were soft when sleeping on side was able to sleep some this shift and restoril ordered for sleep, states that he hasn't eaten for days consumed 3 protein shakes. Plan of Care - Anita Sloan RN - 04/29/2015 8:14 AM CDT Problem: Pneumonia (Adult) Goal: Signs and Symptoms of Listed Potential Problems Will be Absent or Manageable (Pneumonia) Signs and symptoms of listed potential problems will be absent or manageable by discharge/transitionof care (reference Pneumonia (Adult) CPG). Outcome: No Change Admitted with sepsis/PNA. Turns per self in bed. Has not slept at all tonight, on-call MD was contacted to get a sleeping pill/melatonin but no order was given. VSS. A-febrile. Refused beaver, urinatingwith the urinal. LS are dim with insp and exp wheezes throughout. Wore BiPAP from [id number] and [phone]. Pt is claustrophobic and very anxious on the BiPAP, MD would not order any anxiolytics tonight. Tele SR. Pharmacy-Admission Medication History - Wendy Oleary, [facility] - 04/28/2015 7:41 PM CDT .Admission medication history interview status for this patient is complete. See [facility] admission navigator for allergy information, prior to admission medications and immunization status. Medication history interview source(s):Patient Medication history resources (including written lists, pill bottles, clinic record):RX vials Primary pharmacy: [phone] Changes made to [facility] medication list: Added: none Deleted: nicotine, prednisone Changed: filled in doses and frequencies for rest of meds Actions taken by pharmacist (provider contacted, etc):None Additional medication history information:None Medication reconciliation/reorder completed by provider prior to medication history? No Prior to Admission medications Medication Sig Last Dose Taking? Auth Provider ATORVASTATIN CALCIUM PO Take 40 mg by mouth At Bedtime 04/27/2015 at 2000 Yes Reported, Patient ASPIRIN PO Take 325 mg by mouth At Bedtime 04/27/2015 at 1999 Yes Reported, Patient Cholecalciferol (VITAMIN D3 PO) Take 1,000 Units by mouth At Bedtime 04/27/2015 at 1999 Yes Reported, Patient lisinopril (PRINIVIL,ZESTRIL) 20 MG tablet Take 20 mg by mouth At Bedtime 04/27/2015 at 1999 Yes Dummy, Bfp User amLODIPine (NORVASC) 10 MG tablet Take 10 mg by mouth At Bedtime 04/27/2015 at 1999 Yes Dummy, Bfp User atenolol (TENORMIN) 50 MG tablet Take 25 mg by mouth daily 04/27/2015 at 1999 Yes Dummy, Bfp User fluticasone-salmeterol (ADVAIR) 250-50 MCG/DOSE diskus inhaler Inhale 1 puff into the lungs 2 times daily. More than a month at Unknown time Jude Weber MD documented in this encounter Plan of Treatment Scheduled Orders Name Type Priority Associated Diagnoses Order S chedule Oxygen Adult Respiratory Care Routine Ordered: documented as of this encounter Procedures Procedure Name Priority Date/Time Associated Comments Diagnosis PLATELET COUNT Routine 05/04/2015 7:13 AM Anemia Results for this CDT procedure are i n the results section. GLUCOSE BY METER Routine 05/04/2015 6:40 AM Anemia Resul ts for this CDT procedure are i n the results section. GLUCOSE BY METER Routine 05/03/2015 9:43 PM Anemia Resul ts for this CDT procedure are i n the results section. GLUCOSE BY METER Routine 05/03/2015 6:05 PM Anemia Resul ts for this CDT procedure are i n the results section. GLUCOSE BY METER Routine 05/03/2015 11:04 Anemia Results for this AM CDT procedure are i n the results section. XR CHEST 2 VIEWS Routine 05/03/2015 8:35 AM Resul ts for this CDT procedure are i n the results section. GLUCOSE BY METER Routine 05/03/2015 7:24 AM Anemia Resul ts for this CDT procedure are i n the results section. POTASSIUM Routine 05/03/2015 5:33 AM Anemia Results f or this CDT procedure are i n the results section. GLUCOSE BY METER Routine 05/02/2015 9:39 PM Anemia Resul ts for this CDT procedure are i n the results section. GLUCOSE BY METER Routine 05/02/2015 6:10 PM Anemia Resul ts for this CDT procedure are i n the results section. GLUCOSE BY METER Routine 05/02/2015 12:36 Anemia Results for this PM CDT procedure are i n the results section. GLUCOSE BY METER Routine 05/02/2015 9:37 AM Anemia Resul ts for this CDT procedure are i n the results section. GLUCOSE BY METER Routine 05/02/2015 8:08 AM Anemia Resul ts for this CDT procedure are i n the results section. CBC WITH PLATELETS & Routine 05/02/2015 6:35 AM Anemia R esults for this DIFFERENTIAL CDT procedure are i n the results section. BASIC METABOLIC PANEL Routine 05/02/2015 6:35 AM Anemia Results for this CDT procedure are i n the results section. GLUCOSE BY METER Routine 05/01/2015 9:31 PM Anemia Resul ts for this CDT procedure are i n the results section. GLUCOSE BY METER Routine 05/01/2015 5:54 PM Anemia Resul ts for this CDT procedure are i n the results section. CBC WITH PLATELETS & STAT 05/01/2015 2:35 PM Anemia R esults for this DIFFERENTIAL CDT procedure are i n the results section. GLUCOSE BY METER Routine 05/01/2015 11:45 Severe Results for this AM CDT sepsis(995.92) (H) procedure are in the results section. GLUCOSE BY METER Routine 05/01/2015 7:39 AM Severe Resul ts for this CDT sepsis(995.92) (H) procedure are in the results section. PLATELET COUNT Routine 05/01/2015 7:14 AM Severe Results for this CDT sepsis(995.92) (H) procedure are in the results section. GLUCOSE BY METER Routine 04/30/2015 8:57 PM Severe Resul ts for this CDT sepsis(995.92) (H) procedure are in the results section. GLUCOSE BY METER Routine 04/30/2015 4:59 PM Severe Resul ts for this CDT sepsis(995.92) (H) procedure are in the results section. GLUCOSE BY METER Routine 04/30/2015 12:06 Severe Results for this PM CDT sepsis(995.92) (H) procedure are in the results section. POTASSIUM Timed 04/30/2015 11:50 Severe Results for this AM CDT sepsis(995.92) (H) procedure are in the results section. GLUCOSE BY METER Routine 04/30/2015 8:33 AM Severe Resul ts for this CDT sepsis(995.92) (H) procedure are in the results section. HEMOGLOBIN A1C Routine 04/30/2015 5:18 AM Severe Results for this CDT sepsis(995.92) (H) procedure are in the results section. BASIC METABOLIC PANEL Routine 04/30/2015 5:18 AM Severe Results for this CDT sepsis(995.92) (H) procedure are in the results section. CBC WITH PLATELETS Routine 04/30/2015 5:18 AM Severe Res ults for this CDT sepsis(995.92) (H) procedure are in the results section. GLUCOSE BY METER Routine 04/30/2015 4:03 AM Severe Resul ts for this CDT sepsis(995.92) (H) procedure are in the results section. GLUCOSE BY METER Routine 04/29/2015 9:17 PM Severe Resul ts for this CDT sepsis(995.92) (H) procedure are in the results section. GLUCOSE BY METER Routine 04/29/2015 4:49 PM Severe Resul ts for this CDT sepsis(995.92) (H) procedure are in the results section. GLUCOSE BY METER Routine 04/29/2015 4:16 PM Severe Resul ts for this CDT sepsis(995.92) (H) procedure are in the results section. GLUCOSE BY METER Routine 04/29/2015 2:45 PM Severe Resul ts for this CDT sepsis(995.92) (H) procedure are in the results section. GLUCOSE BY METER Routine 04/29/2015 12:02 Severe Results for this PM CDT sepsis(995.92) (H) procedure are in the results section. ECHO COMPLETE Routine 04/29/2015 8:57 AM Results for this CDT procedure are i n the results section. LACTIC ACID Routine 04/29/2015 5:18 AM Severe Results f or this CDT sepsis(995.92) (H) procedure are in the results section. BASIC METABOLIC PANEL Routine 04/29/2015 5:18 AM Severe Results for this CDT sepsis(995.92) (H) procedure are in the results section. BLOOD GAS ARTERIAL WITH STAT 04/28/2015 11:15 Severe Results for this OXYHEMOGLOBIN PM CDT sepsis(995.92) (H) procedur e are in the results section. LACTIC ACID Routine 04/28/2015 11:15 Severe Results for this PM CDT sepsis(995.92) (H) procedure are in the results section. MRSA MSSA PCR, NASAL STAT 04/28/2015 8:52 PM Severe R esults for this SWAB CDT sepsis(995.92) (H) procedure are in the results section. PLATELET COUNT Routine 04/28/2015 8:45 PM Severe Results for this CDT sepsis(995.92) (H) procedure are in the results section. LACTIC ACID STAT 04/28/2015 5:50 PM Results f or this CDT procedure are i n the results section. XR CHEST PORT 1 VIEW STAT 04/28/2015 4:59 PM R esults for this CDT procedure are i n the results section. BLOOD CULTURE STAT 04/28/2015 4:45 PM Severe Results for this CDT sepsis(995.92) (H) procedure are in the results section. CBC WITH PLATELETS & STAT 04/28/2015 4:30 PM Severe R esults for this DIFFERENTIAL CDT sepsis(995.92) (H) procedure are in the results section. TROPONIN I STAT 04/28/2015 4:30 PM Results f or this CDT procedure are i n the results section. INR STAT 04/28/2015 4:30 PM Results f or this CDT procedure are i n the results section. PARTIAL THROMBOPLASTIN STAT 04/28/2015 4:30 PM Results for this TIME CDT procedure are i n the results section. NT PROBNP INPATIENT STAT 04/28/2015 4:30 PM Re sults for this CDT procedure are i n the results section. LACTIC ACID STAT 04/28/2015 4:30 PM Results f or this CDT procedure are i n the results section. COMPREHENSIVE METABOLIC STAT 04/28/2015 4:30 PM Results for this PANEL CDT procedure are i n the results section. BLOOD GAS VENOUS WITH STAT 04/28/2015 4:30 PM Results for this OXYHEMOGLOBIN CDT procedure are in the results section. BLOOD CULTURE STAT 04/28/2015 4:30 PM Severe Results for this CDT sepsis(995.92) (H) procedure are in the results section. EKG 12-LEAD, TRACING STAT 04/28/2015 4:25 PM R esults for this ONLY CDT procedure are i n the results section. documented in this encounter Results Platelet count (05/04/2015 7:13 AM CDT) athologist Signature Platelet Count 253 150 - [address]/[facility] Specimen Anatomical Collection Method Collection Time Receive d Time (Source) Location / / Volume Laterality Blood specimen 05/04/2015 7:13 AM 015 7:19 (specimen) CDT AM CDT León Lagos MD LAB - BLOOD ORDERABLES Performing Organization Address [facility] Phon e Number [facility] [address], [place] [address] [facility] [address] [place], [place] [address] 7[facility] [phone] Glucose by meter (05/04/2015 6:40 AM CDT) athologist Signature Glucose 75 70 - 99 POINT OF CARE mg/dL TEST, GLUCOSE Specimen Anatomical Collection Method Collection Time Receive d Time (Source) Location / / Volume Laterality 05/04/2015 6:40 AM 5 6:45 CDT AM CDT León MORALES - AMELIA POCT Performing Organization Address [facility] Phon e Number [facility] POINT OF CARE TEST, GLUCOSE POINT OF CARE TEST, GLUCOSE (ABNORMAL) Glucose by meter (05/03/2015 9:43 PM CDT) athologist Signature Glucose 161 (H) 70 - 99 POINT OF CARE mg/dL TEST, GLUCOSE Comment: Dr/RN Notified Specimen Anatomical Collection Method Collection Time Receive d Time (Source) Location / / Volume Laterality 05/03/2015 9:43 PM 5 9:51 CDT PM CDT León MORALES - BENOAH POCT Performing Organization Address City/[facility]/ZIP Code Phon e Number FV POINT OF CARE TEST, GLUCOSE POINT OF CARE TEST, GLUCOSE (ABNORMAL) Glucose by meter (05/03/2015 6:05 PM CDT) P athologist Signature Glucose 191 (H) 70 - 99 POINT OF CARE mg/dL TEST, GLUCOSE Comment: Dr/RN Notified Specimen Anatomical Collection Method Collection Time Receive d Time (Source) Location / / Volume Laterality 05/03/2015 6:05 PM 5 6:10 CDT PM CDT León CISNEROS POCT Performing Organization Address City/[facility] Phon e Number FV POINT OF CARE TEST, GLUCOSE POINT OF CARE TEST, GLUCOSE (ABNORMAL) Glucose by meter (05/03/2015 11:04 AM CDT) P athologist Signature Glucose 114 (H) 70 - 99 POINT OF CARE mg/dL TEST, GLUCOSE Specimen Anatomical Collection Method Collection Time Receive d Time (Source) Location / / Volume Laterality 05/03/2015 11:04 05/03/2015 AM CDT 11:10 AM CDT León CISNEROS POCT Performing Organization Address City/[facility] Phon e Number FV POINT OF CARE TEST, GLUCOSE POINT OF CARE TEST, GLUCOSE XR Chest 2 Views (05/03/2015 8:35 AM CDT) Anatomical Region Laterality Modality Chest Computed Radiography Specimen (Source) Anatomical Location Collection Method / Collectio n Time Received Time / Laterality Volume Impressions 05/03/2015 8:59 AM CDT IMPRESSION: Probable small right pleural effusion again noted. Minimal right base atelectasis again noted. Post traumatic/post thoracotomy changes to the posterolateral ribs on th e left again noted. Streaky hyperdensity in the lateral left lung ag ain noted possibly representing scarring. There are no new airspace opacities in either lung to suggest pneumonia. Heart size is normal. There is no evidence for congestive failure. There is no pneu mothorax. EVERETTE DAVILA MD Narrative 05/03/2015 8:59 AM CDT CHEST TWO VIEWS 05/03/2015 8:35 AM COMPARISON: Frontal chest x-ray 5. HISTORY: Follow up infiltrates. Procedure Note Everette Davila MD - 05/03/2015Forma tting of this note might be different from the original. CHEST TWO VIEWS 05/03/2015 8:35 AM COMPARISON: Frontal chest x-ray 5. HISTORY: Follow up infiltrates. IMPRESSION IMPRESSION: Probable small right pleural effusion again noted. Minimal right base atelectasis again noted. Post traumatic/post thoracotomy changes to the posterolateral ribs on th e left again noted. Streaky hyperdensity in the lateral left lung ag ain noted possibly representing scarring. There are no new airspace opacities in either lung to suggest pneumonia. Heart size is normal. There is no evidence for congestive failure. There is no pneu mothorax. EVERETTE DAVILA MD Andrews Stanley MD IMG DIAGNOSTIC IMAGING ORDERABLES Glucose by meter (05/03/2015 7:24 AM CDT) athologist Signature Glucose 82 70 - 99 POINT OF CARE mg/dL TEST, GLUCOSE Specimen Anatomical Collection Method Collection Time Receive d Time (Source) Location / / Volume Laterality 05/03/2015 7:24 AM 5 7:25 CDT AM CDT León Aleman MD LAB - BEAKER POCT Performing Organization Address City/[facility] Phon e Number FV POINT OF CARE TEST, GLUCOSE POINT OF CARE TEST, GLUCOSE Potassium (05/03/2015 5:33 AM CDT) athologist [facility] Potassium 3.4 3.4 - 5.3 [facility] mmol/L HOSPITAL Specimen Anatomical Collection Method Collection Time Receive d Time (Source) Location / / Volume Laterality Blood specimen 05/03/2015 5:33 AM 015 5:39 (specimen) CDT AM CDT Andrews Stanley MD LAB - BLOOD ORDERABLES Performing Organization Address City/[facility] Phon e Number M [facility] [address] [place], [place] [address] [facility] [address] [place], [place] [address] [place] [address] (ABNORMAL) Glucose by meter (05/02/2015 9:39 PM CDT) athologist Signature Glucose 148 (H) 70 - 99 POINT OF CARE mg/dL TEST, GLUCOSE Specimen Anatomical Collection Method Collection Time Receive d Time (Source) Location / / Volume Laterality 05/02/2015 9:39 PM 5 CDT 10:11 PM CDT León MORALES - AMELIA POCT Performing Organization Address City/State/ZIP Code Phon e Number FV POINT OF CARE TEST, GLUCOSE POINT OF CARE TEST, GLUCOSE (ABNORMAL) Glucose by meter (05/02/2015 6:10 PM CDT) P athologist Signature Glucose 175 (H) 70 - 99 POINT OF CARE mg/dL TEST, GLUCOSE Specimen Anatomical Collection Method Collection Time Receive d Time (Source) Location / / Volume Laterality 05/02/2015 6:10 PM 5 6:35 CDT PM CDT León MORALES - AMELIA POCT Performing Organization Address City/[facility]/ZIP Code Phon e Number FV POINT OF CARE TEST, GLUCOSE POINT OF CARE TEST, GLUCOSE Glucose by meter (05/02/2015 12:36 PM CDT) P athologist Signature Glucose 87 70 - 99 POINT OF CARE mg/dL TEST, GLUCOSE Specimen Anatomical Collection Method Collection Time Receive d Time (Source) Location / / Volume Laterality 05/02/2015 12:36 05/02/2015 PM CDT 12:40 PM CDT León MORALES - AMELIA POCT Performing Organization Address City/State/ZIP Code Phon e Number FV POINT OF CARE TEST, GLUCOSE POINT OF CARE TEST, GLUCOSE (ABNORMAL) Glucose by meter (05/02/2015 9:37 AM CDT) P athologist Signature Glucose 105 (H) 70 - 99 POINT OF CARE mg/dL TEST, GLUCOSE Specimen Anatomical Collection Method Collection Time Receive d Time (Source) Location / / Volume Laterality 05/02/2015 9:37 AM 5 9:40 CDT AM CDT León MORALES - AMELIA POCT Performing Organization Address City/State/ZIP Code Phon e Number FV POINT OF CARE TEST, GLUCOSE POINT OF CARE TEST, GLUCOSE (ABNORMAL) Glucose by meter (05/02/2015 8:08 AM CDT) P athologist Signature Glucose 103 (H) 70 - 99 POINT OF CARE mg/dL TEST, GLUCOSE Specimen Anatomical Collection Method Collection Time Receive d Time (Source) Location / / Volume Laterality 05/02/2015 8:08 AM 5 8:10 CDT AM CDT León Aleman MD LAB - BEAKER POCT Performing Organization Address City/State/ZIP Code Phon e Number FV POINT OF CARE TEST, GLUCOSE POINT OF CARE TEST, GLUCOSE (ABNORMAL) Basic metabolic panel (05/02/2015 6:35 AM CDT) Patholo gist Method Time Signature Sodium 135 133 - 144 [place] mmol/L [facility] Potassium 3.4 3.4 - 5.3 [place] mmol/L [facility] Chloride 102 94 - 109 [place] mmol/L [facility] Carbon Dioxide 26 20 - 32 [place] mmol/L [facility] Anion Gap 7 3 - 14 [place] mmol/L [facility] Glucose 51 (L) 70 - 99 [place] mg/dL [facility] Urea Nitrogen 11 7 - 30 [place] mg/dL [facility] Creatinine 0.55 (L) 0.66 - [place] 1.25 [facility] mg/dL [facility] GFR Estimate >90 >60 [place] Non GFR Calc mL/min/1. [facility] 7m2 [facility] GFR Estimate >90 >60 [place] If Black GFR Calc mL/min/1. R[facility] ES 7m2 [facility] Calcium 8.1 (L) 8.5 - [place] 10.1 [facility] mg/dL HOSPITAL Specimen Anatomical Collection Method Collection Time Receive d Time (Source) Location / / Volume Laterality Blood specimen 05/02/2015 6:35 AM 015 6:45 (specimen) CDT AM CDT Iesha Davila MD LAB - BLOOD ORDERABLES Performing Organization Address City/State/ZIP Code Phon e Number M [facility] [address] [place], [place] [address] [facility] [address] [place], [place] [address] [phone] (ABNORMAL) CBC with platelets differential (05/02/2015 6:35 AM CDT) [facility] gist Method Time Signature WBC 13.1 (H) 4.0 - [facility] 11.0 HOSPITAL 10e9/L RBC Count 3.35 (L) 4.4 - 5.9 [facility] 10e12/L [facility] Hemoglobin 11.5 (L) 13.3 - [facility] 17.7 g/dL [facility] Hematocrit 34.3 (L) 40.0 - [facility] 53.0 % HOSPITAL MCV 102 (H) 78 - 100 [facility] MCH 34.3 (H) 26.5 - [facility] 33.0 pg [facility] MCHC 33.5 31.5 - [facility] 36.5 g/dL [facility] RDW 14.0 10.0 [facility] 15.0 % [facility] Platelet Count 196 150 - 450 [facility] 10e9/L HOSPITAL Diff Method Manual [facility] Method DIFFERENTIAL % Neutrophils 71.0 % [facility] DIFFERENTIAL % Lymphocytes 19.0 % [facility] DIFFERENTIAL % Monocytes 10.0 % [facility] DIFFERENTIAL % Eosinophils 0.0 % [facility] DIFFERENTIAL % Basophils 0.0 % [facility] DIFFERENTIAL Absolute 9.3 (H) 1.6 - 8.3 [facility] Neutrophil 10e9/L DIFFERENTIAL Absolute 2.5 0.8 - 5.3 [facility] Lymphocytes 10e9/L DIFFERENTIAL Absolute 1.3 0.0 - 1.3 [facility] Monocytes 10e9/L DIFFERENTIAL Absolute 0.0 0.0 - 0.7 [facility] Eosinophils 10e9/L DIFFERENTIAL Absolute 0.0 0.0 - 0.2 [facility] Basophils 10e9/L DIFFERENTIAL Macrocytes Present [facility] DIFFERENTIAL Platelet Normal [facility] Estimate DIFFERENTIAL Specimen Anatomical Collection Method Collection Time Receive d Time (Source) Location / / Volume Laterality Blood specimen 05/02/2015 6:35 AM 015 6:45 (specimen) CDT AM CDT Iesha Davila MD LAB - BLOOD ORDERABLES Performing Organization Address City/State/ZIP Code Phon e Number [facility] DIFFERENTIAL [facility] [address] [phone] (ABNORMAL) Glucose by meter (05/01/2015 9:31 PM CDT) athologist Signature Glucose 173 (H) 70 - 99 POINT OF CARE mg/dL TEST, GLUCOSE Specimen Anatomical Collection Method Collection Time Receive d Time (Source) Location / / Volume Laterality 05/01/2015 9:31 PM 5 9:36 CDT PM CDT León Aleman MD LAB - AMELIA POCT Performing Organization Address City/State/[place] Code Phon e Number FV POINT OF CARE TEST, GLUCOSE POINT OF CARE TEST, GLUCOSE (ABNORMAL) Glucose by meter (05/01/2015 5:54 PM CDT) athologist Signature Glucose 140 (H) 70 - 99 POINT OF CARE mg/dL TEST, GLUCOSE Specimen Anatomical Collection Method Collection Time Receive d Time (Source) Location / / Volume Laterality 05/01/2015 5:54 PM 5 6:00 CDT PM CDT León MORALES - AMELIA POCT Performing Organization Address City/[facility]/ZIP Code Phon e Number FV POINT OF CARE TEST, GLUCOSE POINT OF CARE TEST, GLUCOSE (ABNORMAL) CBC with platelets differential (05/01/2015 2:35 PM CDT) [facility] Method Time Signature WBC 9.6 4.0 - [facility] 11.0 [facility] 10e9/[facility] RBC Count 3.45 (L) 4.4 - 5.9 [place] 10e12/L [facility] Hemoglobin 12.0 (L) 13.3 - [place] 17.7 g/dL [facility] Hematocrit 35.0 (L) 40.0 - [facility] 53.0 % [facility] MCV 101 (H) 78 - 100 [place] fl [facility] MCH 34.8 (H) 26.5 - [facility] 33.0 pg [facility] MCHC 34.3 31.5 - [place] 36.5 g/dL [facility] RDW 14.4 10.0 - [facility] 15.0 % [facility] Platelet Count 182 150 - 450 [place] 10e9/L [facility] Diff Method Automated [facility] % Neutrophils 82.9 % [facility] % Lymphocytes 7.3 % [facility] % Monocytes 8.0 % [facility] % Eosinophils 0.0 % [facility] % Basophils 0.5 % [facility] % Immature 1.3 % [place] Granulocytes [facility] Absolute 7.9 1.6 - 8.3 [place] Neutrophil 10e9/L [facility] Absolute 0.7 (L) 0.8 - 5.3 [place] Lymphocytes 10e9/L [facility] Absolute 0.8 0.0 - 1.3 [place] Monocytes 10e9/L [facility] Absolute 0.0 0.0 - 0.7 [place] Eosinophils 10e9/L [facility] Absolute 0.1 0.0 - 0.2 [place] Basophils 10e9/L [facility] Abs Immature 0.1 0 - 0.4 [place] Granulocytes [facility] Macrocytes Present [facility] Platelet Normal [place] Estimate [facility] Specimen Anatomical Collection Method Collection Time Receive d Time (Source) Location / / Volume Laterality Blood specimen 05/01/2015 2:35 PM 015 2:45 (specimen) CDT PM CDT Iesha Davila MD LAB - BLOOD ORDERABLES Performing Organization Address City/State/ZIP Code Phon e Number [facility] [address] [place] [address] [facility] [address] [phone] Glucose by meter (05/01/2015 11:45 AM CDT) athologist Signature Glucose 89 70 - 99 POINT OF CARE mg/dL TEST, GLUCOSE Specimen Anatomical Collection Method Collection Time Receive d Time (Source) Location / / Volume Laterality 05/01/2015 11:45 05/01/2015 AM CDT 11:50 AM CDT León Aleman MD LAB - BEAKER POCT Performing Organization Address City/State/ZIP Code Phon e Number FV POINT OF CARE TEST, GLUCOSE POINT OF CARE TEST, GLUCOSE Glucose by meter (05/01/2015 7:39 AM CDT) athologist Signature Glucose 71 70 - 99 POINT OF CARE mg/dL TEST, GLUCOSE Specimen Anatomical Collection Method Collection Time Receive d Time (Source) Location / / Volume Laterality 05/01/2015 7:39 AM 5 7:45 CDT AM CDT León MORALES - BENOAH POCT Performing Organization Address City/[facility]/ZIP Code Phon e Number FV POINT OF CARE TEST, GLUCOSE POINT OF CARE TEST, GLUCOSE Platelet count (05/01/2015 7:14 AM CDT) athologist Signature Platelet Count 168 150 - [address] Specimen Anatomical Collection Method Collection Time Receive d Time (Source) Location / / Volume Laterality Blood specimen 05/01/2015 7:14 AM 015 7:23 (specimen) CDT AM CDT León Lagos MD LAB - BLOOD ORDERABLES Performing Organization Address City/[facility] Phon e Number [facility] [address] [place] [phone] [facility] [address] [place] [phone] Glucose by meter (04/30/2015 8:57 PM CDT) athologist Signature Glucose 97 70 - 99 POINT OF CARE mg/dL TEST, GLUCOSE Specimen Anatomical Collection Method Collection Time Receive d Time (Source) Location / / Volume Laterality 04/30/2015 8:57 PM 5 9:00 CDT PM CDT León MORALES - BENOAH POCT Performing Organization Address City/[facility] Phon e Number FV POINT OF CARE TEST, GLUCOSE POINT OF CARE TEST, GLUCOSE (ABNORMAL) Glucose by meter (04/30/2015 4:59 PM CDT) athologist Signature Glucose 114 (H) 70 - 99 POINT OF CARE mg/dL TEST, GLUCOSE Specimen Anatomical Collection Method Collection Time Receive d Time (Source) Location / / Volume Laterality 04/30/2015 4:59 PM 5 5:06 CDT PM CDT León Aleman MD LAB - BENOAH POCT Performing Organization Address City/State/ZIP Code Phon e Number FV POINT OF CARE TEST, GLUCOSE POINT OF CARE TEST, GLUCOSE (ABNORMAL) Glucose by meter (04/30/2015 12:06 PM CDT) P athologist Signature Glucose 129 (H) 70 - 99 POINT OF CARE mg/dL TEST, GLUCOSE Specimen Anatomical Collection Method Collection Time Receive d Time (Source) Location / / Volume Laterality 04/30/2015 12:06 04/30/2015 PM CDT 12:15 PM CDT León MORALES - AMELIA POCT Performing Organization Address City/[facility]/ZIP Code Phon e Number FV POINT OF CARE TEST, GLUCOSE POINT OF CARE TEST, GLUCOSE Potassium (04/30/2015 11:50 AM CDT) athologist Signature Potassium 3.5 3.4 - 5.3 [facility] mmol/L HOSPITAL Specimen Anatomical Collection Method Collection Time Receive d Time (Source) Location / / Volume Laterality Blood specimen 04/30/2015 11:50 5 (specimen) AM CDT 11:59 AM CDT León Aleman MD LAB - BLOOD ORDERABLES Performing Organization Address City/[facility]/ZIP Code Phon e Number M [facility] [address] [place], [place] [address] [phone] [facility] [address] [phone] (ABNORMAL) Glucose by meter (04/30/2015 8:33 AM CDT) P athologist Signature Glucose 144 (H) 70 - 99 POINT OF CARE mg/dL TEST, GLUCOSE Specimen Anatomical Collection Method Collection Time Receive d Time (Source) Location / / Volume Laterality 04/30/2015 8:33 AM 201 5 8:51 CDT AM CDT León MORALES - BENOAH POCT Performing Organization Address City/[facility]/ZIP Code Phon e Number FV POINT OF CARE TEST, GLUCOSE POINT OF CARE TEST, GLUCOSE Hemoglobin A1c (04/30/2015 5:18 AM CDT) P athologist Signature Hemoglobin A1C 5.4 4.3 - 6.0 [facility] Specimen Anatomical Collection Method Collection Time Receive d Time (Source) Location / / Volume Laterality Blood specimen 04/30/2015 5:18 AM 015 5:35 (specimen) CDT AM CDT León Lagos MD LAB - BLOOD ORDERABLES Performing Organization Address City/[facility] Phon e Number M [facility] [address] [place], [place] [address] [facility] [address] [phone] (ABNORMAL) Basic metabolic panel (04/30/2015 5:18 AM CDT) Patholo gist Method Time Signature Sodium 138 133 - 144 [place] mmol/L [facility] Potassium 3.1 (L) 3.4 - 5.3 [place] mmol/L [facility] Chloride 106 94 - 109 [place] mmol/L [facility] Carbon Dioxide 23 20 - 32 [place] mmol/L [facility] Anion Gap 9 3 - 14 [place] mmol/L [facility] Glucose 153 (H) 70 - 99 [place] mg/dL [facility] Urea Nitrogen 14 7 - 30 [place] mg/dL [facility] Creatinine 0.48 (L) 0.66 - [place] 1.25 [facility] mg/dL [facility] GFR Estimate >90 >60 [place] Non GFR Calc mL/min/1. [place] 7m2 [facility] GFR Estimate >90 >60 [place] If Black GFR Calc mL/min/1. RIDG ES 7m2 [facility] Calcium 7.3 (L) 8.5 - [facility] 10.1 [facility] mg/dL HOSPITAL Specimen Anatomical Collection Method Collection Time Receive d Time (Source) Location / / Volume Laterality Blood specimen 04/30/2015 5:18 AM 015 5:35 (specimen) CDT AM CDT León Lagos MD LAB - BLOOD ORDERABLES Performing Organization Address City/[facility]/ZIP [facility] Phon e Number [facility] [address] [place], [place] [address] [facility] [address] [place], [place] [address], [facility] [phone] (ABNORMAL) CBC with platelets (04/30/2015 5:18 AM CDT) Analysis Performed At Patho logist Time Signature WBC 11.3 (H) 4.0 - 11.0 [place] 10e9L [facility] RBC Count 2.87 (L) 4.4 - 5.9 [place] 10e12/L [facility] Hemoglobin 9.9 (L) 13.3 - [place] 17.7 g/dL [facility] Hematocrit 28.4 (L) 40.0 - [place] 53.0 % [facility] MCV 99 78 - 100 [facility] MCH 34.5 (H) 26.5 - [place] 33.0 pg [facility] MCHC 34.9 31.5 - [place] 36.5 g/dL [facility] RDW 14.0 10.0 - [place] 15.0 % [facility] Platelet Count 152 150 - [address] Specimen Anatomical Collection Method Collection Time Receive d Time (Source) Location / / Volume Laterality Blood specimen 04/30/2015 5:18 AM 015 5:35 (specimen) CDT AM CDT León Lagos MD LAB - BLOOD ORDERABLES Performing Organization Address City/State/ZIP Code Phon e Number [place] [address] [place], [place] [address] [facility] [address] [place], [place] [address] [phone] (ABNORMAL) Glucose by meter (04/30/2015 4:03 AM CDT) P athologist Signature Glucose 141 (H) 70 - 99 POINT OF CARE mg/dL TEST, GLUCOSE Specimen Anatomical Collection Method Collection Time Receive d Time (Source) Location / / Volume Laterality 04/30/2015 4:03 AM 5 4:10 CDT AM CDT León Aleman MD LAB - BEAKER POCT Performing Organization Address City/State/ZIP Code Phon e Number FV POINT OF CARE TEST, GLUCOSE POINT OF CARE TEST, GLUCOSE (ABNORMAL) Glucose by meter (04/29/2015 9:17 PM CDT) P athologist Signature Glucose 161 (H) 70 - 99 POINT OF CARE mg/dL TEST, GLUCOSE Specimen Anatomical Collection Method Collection Time Receive d Time (Source) Location / / Volume Laterality 04/29/2015 9:17 PM 5 9:25 CDT PM CDT León Aleman MD LAB - BENOAH POCT Performing Organization Address City/State/ZIP Code Phon e Number FV POINT OF CARE TEST, GLUCOSE POINT OF CARE TEST, GLUCOSE (ABNORMAL) Glucose by meter (04/29/2015 4:49 PM CDT) P athologist Signature Glucose 272 (H) 70 - 99 POINT OF CARE mg/dL TEST, GLUCOSE Specimen Anatomical Collection Method Collection Time Receive d Time (Source) Location / / Volume Laterality 04/29/2015 4:49 PM 5 4:55 CDT PM CDT León MORALES - AMELIA POCT Performing Organization Address City/State/ZIP Code Phon e Number FV POINT OF CARE TEST, GLUCOSE POINT OF CARE TEST, GLUCOSE (ABNORMAL) Glucose by meter (04/29/2015 4:16 PM CDT) P athologist Signature Glucose 241 (H) 70 - 99 POINT OF CARE mg/dL TEST, GLUCOSE Specimen Anatomical Collection Method Collection Time Receive d Time (Source) Location / / Volume Laterality 04/29/2015 4:16 PM 5 4:25 CDT PM CDT León Aleman MD LAB - AMELIA POCT Performing Organization Address City/State/ZIP Code Phon e Number FV POINT OF CARE TEST, GLUCOSE POINT OF CARE TEST, GLUCOSE (ABNORMAL) Glucose by meter (04/29/2015 2:45 PM CDT) P athologist Signature Glucose 249 (H) 70 - 99 POINT OF CARE mg/dL TEST, GLUCOSE Specimen Anatomical Collection Method Collection Time Receive d Time (Source) Location / / Volume Laterality 04/29/2015 2:45 PM 5 2:50 CDT PM CDT León MORALES - AMELIA POCT Performing Organization Address City/State/ZIP Code Phon e Number FV POINT OF CARE TEST, GLUCOSE POINT OF CARE TEST, GLUCOSE (ABNORMAL) Glucose by meter (04/29/2015 12:02 PM CDT) P athologist Signature Glucose 255 (H) 70 - 99 POINT OF CARE mg/dL TEST, GLUCOSE Comment: Dr/RN Notified Specimen Anatomical Collection Method Collection Time Receive d Time (Source) Location / / Volume Laterality 04/29/2015 12:02 04/29/2015 PM CDT 12:31 PM CDT León Aleman MD LAB - AMELIA POCT Performing Organization Address City/State/ZIP Code Phon e Number FV POINT OF CARE TEST, GLUCOSE POINT OF CARE TEST, GLUCOSE Echocardiogram (04/29/2015 8:57 AM CDT) Anatomical Region Laterality Modality Echocardiography Specimen (Source) Anatomical Collection Method Collection Time Re ceived Time Location / / Volume Laterality 04/29/2015 8:26 AM CDT Narrative 04/29/2015 12:26 PM CDT Interpretation Summary [facility] Echocardiography Laboratory [address] [place] [address] Name: STEVE GUTIERREZ : 1960 Study Date: 04/29/2015 08:26 AM Age: 55 yrs Gender: Male Patient Location: [facility] Reason For Study: CHF History: CHF Ordering Physician: LEÓN ALEMAN Referring Physician: Noemí Champagne Performed By: Manjit Yoder RDCS BSA: 1.7 m2 Height: 68 in Weight: 125 lb HR: 108 BP: 91/61 mmHg Procedure Complete Echo Adult. Interpretation Summary The left ventricle is normal in size. A sigmoid septum is present. The visual ejection fraction is estimate d at 60-65%. Grade I left ventricular diastolic dysfu nction is noted. No regional wall motion abnormalities no norm. Borderline aortic root dilatation (3.7cm ) Normal IVC (1.5-2.5cm) with >50% respira tory collapse; right atrial pressure is estimated at 5-10mmHg. Right ventricle systolic pressure estima te normal Left Ventricle The left ventricle is normal in size. A sigmoid septum is present. The visual ejection fraction is estimated at 60-65% . Grade I left ventricular diastolic dysfunction is noted. No regional wall m otion abnormalities noted. Right Ventricle The right ventricle is normal in size an d function. Atria Normal left atrial size. The right atriu m is borderline dilated. There is no color Doppler evidence of an atrial shun t. Mitral Valve The mitral valve is normal in structure and function. There is trace mitral regurgitation. Tricuspid Valve There is trace tricuspid regurgitation. Normal IVC (1.5-2.5cm) with >50% respiratory collapse; right atrial press ure is estimated at 5-10mmHg. The right ventricular systolic pressure is a pproximated at 32.3 mmHg plus the right atrial pressure. Right ventricle s ystolic pressure estimate normal. Aortic Valve There is trivial trileaflet aortic scler osis. There is trace aortic regurgitation. Pulmonic Valve The pulmonic valve is not well seen, but is grossly normal. There is no pulmonic valvular regurgitation. Vessels Normal size aorta. Borderline aortic john t dilatation. 3.7cm aortic root. Pericardium There is no pericardial effusion. MMode/2D Measurements & Calculations IVSd: 0.64 cm LVIDd: 3.8 cm LVIDs: 2.7 cm LVPWd: 0.83 cm FS: 28.3 % EDV(Teich): 62.3 ml ESV(Teich): 27.8 ml LV mass(C)d: 77.0 grams Ao root diam: 3.8 cm LA dimension: 2.8 cm asc Aorta Diam: 3.3 cm LA/Ao: 0.75 Doppler Measurements & Calculations MV E max huma: 67.6 cm/sec MV A max huma: 96.7 cm/sec MV E/A: 0.70 TR max huma: 284.0 cm/sec TR max P.3 mmHg Lateral E/e': 6.6 Medial E/e': 17.8 Report approved by: Amarjit Benson 12:26 PM Procedure Note Emery Stoddard MD - 04/29/2015Form atting of this note might be different from the original. Interpretation Summary [facility] Echocardiography Laboratory [address] [place] [id number] Name: STEVE GUTIERREZ : 1960 Study Date: 04/29/2015 08:26 AM Age: 55 yrs Gender: Male Patient Location: [facility] Reason For Study: CHF History: CHF Ordering Physician: LEÓN ALEMAN Referring Physician: Noemí Champagne Performed By: Manjit Yoder RDCS BSA: 1.7 m2 Height: 68 in Weight: 125 lb HR: 108 BP: 91/61 mmHg Procedure Complete Echo Adult. Interpretation Summary The left ventricle is normal in size. A sigmoid septum is present. The visual ejection fraction is estimate d at 60-65%. Grade I left ventricular diastolic dysfu nction is noted. No regional wall motion abnormalities no norm. Borderline aortic root dilatation (3.7cm ) Normal IVC (1.5-2.5cm) with >50% respira tory collapse; right atrial pressure is estimated at 5-10mmHg. Right ventricle systolic pressure estima te normal Left Ventricle The left ventricle is normal in size. A sigmoid septum is present. The visual ejection fraction is estimated at 60-65% . Grade I left ventricular diastolic dysfunction is noted. No regional wall m otion abnormalities noted. Right Ventricle The right ventricle is normal in size an d function. Atria Normal left atrial size. The right atriu m is borderline dilated. There is no color Doppler evidence of an atrial shun t. Mitral Valve The mitral valve is normal in structure and function. There is trace mitral regurgitation. Tricuspid Valve There is trace tricuspid regurgitation. Normal IVC (1.5-2.5cm) with >50% respiratory collapse; right atrial press ure is estimated at 5-10mmHg. The right ventricular systolic pressure is a pproximated at 32.3 mmHg plus the right atrial pressure. Right ventricle s ystolic pressure estimate normal. Aortic Valve There is trivial trileaflet aortic scler osis. There is trace aortic regurgitation. Pulmonic Valve The pulmonic valve is not well seen, but is grossly normal. There is no pulmonic valvular regurgitation. Vessels Normal size aorta. Borderline aortic john t dilatation. 3.7cm aortic root. Pericardium There is no pericardial effusion. MMode/2D Measurements & Calculations IVSd: 0.64 cm LVIDd: 3.8 cm LVIDs: 2.7 cm LVPWd: 0.83 cm FS: 28.3 % EDV(Teich): 62.3 ml ESV(Teich): 27.8 ml LV mass(C)d: 77.0 grams Ao root diam: 3.8 cm LA dimension: 2.8 cm asc Aorta Diam: 3.3 cm LA/Ao: 0.75 Doppler Measurements & Calculations MV E max huma: 67.6 cm/sec MV A max huma: 96.7 cm/sec MV E/A: 0.70 TR max huma: 284.0 cm/sec TR max P.3 mmHg Lateral E/e': 6.6 Medial E/e': 17.8 Report approved by: Amarjit Benson 12:26 PM León Aleman MD CV ECHO ORDERABLES Lactic acid (04/29/2015 5:18 AM CDT) athologist Signature Lactic Acid 1.7 0.4 - 2.0 [place] mmol/L [facility] Specimen Anatomical Collection Method Collection Time Receive d Time (Source) Location / / Volume Laterality Blood specimen 04/29/2015 5:18 AM 015 5:35 (specimen) CDT AM CDT León Aleman MD LAB - BLOOD ORDERABLES Performing Organization Address City/[facility]/ZIP [facility] Phon e Number Yue [facility] [address], [place] [address] [facility] [address] [place], [place] [address], [facility] [phone] (ABNORMAL) Basic metabolic panel (04/29/2015 5:18 AM CDT) [facility] Method Time Signature Sodium 138 133 - 144 [place] mmol/L [facility] Potassium 3.5 3.4 - 5.3 [place] mmol/L [facility] Chloride 106 94 - 109 [place] mmol/L [facility] Carbon Dioxide 21 20 - 32 [place] mmol/L [facility] Anion Gap 11 3 - 14 [place] mmol/L [facility] Glucose 144 (H) 70 - 99 [place] mg/dL [facility] Urea Nitrogen 26 7 - 30 [place] mg/dL [facility] Creatinine 0.85 0.66 - [place] 1.25 [facility] mg/dL [facility] GFR Estimate >90 >60 [place] Non GFR Calc mL/min/1. [facility] 7m2 [facility] GFR Estimate >90 >60 [place] If Black GFR Calc mL/min/1. RIDG ES 7m2 [facility] Calcium 7.6 (L) 8.5 - [place] 10.1 [facility] mg/dL HOSPITAL Specimen Anatomical Collection Method Collection Time Receive d Time (Source) Location / / Volume Laterality Blood specimen 04/29/2015 5:18 AM 015 5:35 (specimen) CDT AM CDT León Aleman MD LAB - BLOOD ORDERABLES Performing Organization Address City/[facility]/ZIP [facility] Phon e Number M [facility] [address], [place] [address] [facility] [address] [place], [place] [address], [facility] [phone] (ABNORMAL) Lactic acid (04/28/2015 11:15 PM CDT) P athologist Signature Lactic Acid 2.4 (H) 0.4 - 2.0 [place] mmol/L [facility] Specimen Anatomical Collection Method Collection Time Receive d Time (Source) Location / / Volume Laterality 04/28/2015 11:15 04/28/2015 PM CDT 11:29 PM CDT León Aleman MD LAB - BLOOD ORDERABLES Performing Organization Address City/[facility]/ZIP Code Phon e Number M [facility] [address], [place] [address] [place] [address] [address] [place], [place] [address], [facility] [phone] (ABNORMAL) Blood gas arterial and oxyhgb (04/28/2015 11:15 PM CDT) [facility] Method Time Signature pH Arterial 7.43 7.35 - [place] 7.45 pH [facility] pCO2 Arterial 31 (L) 35 - 45 mm [place] Hg [facility] pO2 Arterial 94 80 - 105 [place] mm Hg [facility] Bicarbonate 21 21 - 28 [place] Arterial mmol/L [facility] FIO2 40% [place] BIPAP [facility] Oxyhemoglobin 97 92 - 100 % [place] Arterial [facility] Base Deficit Art 3.3 mmol/L [facility] Comment: Reference range: -9.0 to 1.8 Specimen Anatomical Collection Method Collection Time Receive d Time (Source) Location / / Volume Laterality Blood specimen 04/28/2015 11:15 5 (specimen) PM CDT 11:29 PM CDT León Aleman MD LAB - BLOOD ORDERABLES Performing Organization Address City/[facility]/ZIP [facility] Phon e Number M [facility] [address], [place] [address] [place] [address] [address] [place], [place] [address] [phone] Methicillin Resistant Staph Aureus PCR (04/28/2015 8:52 PM CDT) Component Value Ref Test Analysis Performed At [facility] SimpleOrder Range Method Time Signature Specimen Nares [facility] Methicillin Negative [facility] Resist/Sens S. MRSA Negative: SA Negative ? ?MRSA and Staphylococcus aureus target DNA not [facility] aureus PCR detected, presumed negative for MRSA and SA colonization or the number of [facility] bacteria present may be below the limit of detection for the assay. FDA BANK approved assay performed using [employer] GeneXpert(R) real-ti me PCR. Specimen (Source) Anatomical Collection Method Collection Time Re ceived Time Location / / Volume Laterality Nasal structure 04/28/2015 8:52 5 9:03 (body structure) PM CDT PM CDT León Aleman MD LAB - MICRO GENERAL ORDERABL ES Performing Organization Address City/[facility]/ZIP Code Phon e Number [address] [address] [facility] [address] [place] [address] [phone] (ABNORMAL) Platelet count (04/28/2015 8:45 PM CDT) athologist Signature Platelet Count 136 (L) 150 - [address] Specimen Anatomical Collection Method Collection Time Receive d Time (Source) Location / / Volume Laterality Blood specimen 04/28/2015 8:45 PM 015 8:50 (specimen) CDT PM CDT León Aleman MD LAB - BLOOD ORDERABLES Performing Organization Address City/[facility]/ZIP Code Phon e Number [place] [address] [address] [place] [address] [facility] [address] [place] [address] [phone] (ABNORMAL) Lactic acid (04/28/2015 5:50 PM CDT) athologist Signature Lactic Acid 4.1 (HH) 0.4 - 2.0 [facility] Comment: Critical Value called to and read back b y JARED WADSWORTH) ON 04.28.15 AT 1804 B Y ALEXY Specimen Anatomical Collection Method Collection Time Receive d Time (Source) Location / / Volume Laterality Blood specimen 04/28/2015 5:50 PM 015 6:01 (specimen) CDT PM CDT Shweta Martins MD LAB - BLOOD ORDERABLES Performing Organization Address City/State/ZIP Code Phon e Number M [facility] [address], [place] [address] [facility] [address] [place] [address] [facility] [phone] XR Chest Port 1 View (04/28/2015 4:59 PM CDT) Anatomical Region Laterality Modality Chest Computed Radiography Specimen (Source) Anatomical Location Collection Method / Collectio n Time Received Time / Laterality Volume Impressions 04/28/2015 5:05 PM CDT IMPRESSION: Bilateral infiltrates are present in the lower lung zones. Followup until clearing is recommended. There is old left-sided rib fractures. Heart size is normal. Pulmona ry vasculature is normal. Lungs appear slightly hyperinflated. LEÓN ISAACS MD Narrative 04/28/2015 5:05 PM CDT CHEST ONE VIEW PORTABLE ?? 04/28/2015 4:59 PM HISTORY: Cough. Shortness of breath. Hyp otension. COMPARISON: 02/20/2012 Procedure Note León Isaacs MD - 04/28/2015Form atting of this note might be different from the original. CHEST ONE VIEW PORTABLE 04/28/2015 4:59 P M HISTORY: Cough. Shortness of breath. Hyp otension. COMPARISON: 02/20/2012 IMPRESSION IMPRESSION: Bilateral infiltrates are pr esent in the lower lung zones. Followup until clearing is recommended. There is old left-sided rib fractures. Heart size is normal. Pulmona ry vasculature is normal. Lungs appear slightly hyperinflated. LEÓN ISAACS MD Shweta Martins MD IMG DIAGNOSTIC IMAGING ORDER SHA Blood culture (04/28/2015 4:45 PM CDT) [facility] Method Time Signature Specimen Blood Right [place] Description Arm [facility] Special Aerobic and [place] Requests anaerobic [facility] received Culture Micro No growth INFECTIOUS DISEASE DIAGNOSTIC LABORATORY Micro Report FINAL INFECTIOUS Status 05/04/2015 DISEASE DIAGNOSTIC LABORATORY Specimen Anatomical Collection Method Collection Time Receive d Time (Source) Location / / Volume Laterality Blood specimen STRUCTURE OF RIGHT 04/28/2015 4:45 PM 0 04/28/2015 5:42 (specimen) UPPER LIMB / CDT PM CDT Unknown Shweta Martins MD LAB - MICRO GENERAL ORDERABL ES Performing Organization Address City/[facility]/ZIP [facility] Phon e Number INFECTIOUS DISEASES [address] [place] [address] DIAGNOSTIC LABORATORY, [facility] [address] [place], [place] [address], [facility] [phone] INFECTIOUS DISEASE [address] [place] [address], [facility] DIAGNOSTIC LABORATORY (ABNORMAL) BNP (04/28/2015 4:30 PM CDT) Analysis Performed At Patho logist Time Signature N-Terminal Pro 2,685 (H) 0 - 900 [place] BNP Inpatient pg/mL [facility] Comment: Reference range shown and results flagge d as abnormal are suggested inpatient cut points for confirming diagnosis if CHF in an acute setting. Establishing a baseline value for each individual kulwant ent is useful for follow-up. An inpatient or emergency department NT-pr oPBNP <300 pg/mL effectively rules out acute CHF, with 99% negative predictive value. The outpatient non-acute reference range for ruling out CHF is: 0-125 pg/mL (age 18 to less than 75) 0-450 pg/mL (age 75 yrs and older) Specimen Anatomical Collection Method Collection Time Receive d Time (Source) Location / / Volume Laterality Blood specimen 04/28/2015 4:30 PM 015 5:04 (specimen) CDT PM CDT Shweta Martins MD LAB - BLOOD ORDERABLES Performing Organization Address City/[facility] Phon e Number [facility] [address], [place] [address] [facility] [address] [place] [address] [phone] (ABNORMAL) Blood gas venous and oxyhgb (04/28/2015 4:30 PM CDT) P athologist Signature Ph Venous 7.19 (LL) 7.32 - 7.43 [facility] Comment: Critical Value called to and read back Erendira GARCIA (ERB) ON 04.28.2015 AT 1724 S P PCO2 Venous 54 (H) 40 - 50 mm Hg [facility] PO2 Venous 17 (L) 25 - 47 mm Hg [facility] Bicarbonate Venous 21 21 - 28 mmol/L [facility] FIO2 Room Air [facility] ITAL Oxyhemoglobin Venous 22 % [facility] Base Deficit Venous 7.4 mmol/L [facility] Comment: Reference range: -7.7 to 1.9 Specimen Anatomical Collection Method Collection Time Receive d Time (Source) Location / / Volume Laterality Blood specimen 04/28/2015 4:30 PM 015 5:05 (specimen) CDT PM CDT Shweta Martins MD LAB - BLOOD ORDERABLES Performing Organization Address City/[facility]/ZIP Code Phon e Number M [facility] [address], [place] [address] [place] [address] [address] [place], [place] [address], [facility] [phone] Troponin I (now) (04/28/2015 4:30 PM CDT) [facility] SimpleOrder Method Time Signature Troponin I ES <0.015 0.000 - [place] The 99th percentile for pe r reference range is 0.045 ug/L. ??Troponin values in 0.045 [facility] the range of 0.045 - 0.120 ug/L may be associated wit h risks of adverse ug/L HOSPITAL clinical events. Specimen Anatomical Collection Method Collection Time Receive d Time (Source) Location / / Volume Laterality Blood specimen 04/28/2015 4:30 PM 015 5:04 (specimen) CDT PM CDT Shweta Martins MD LAB - BLOOD ORDERABLES Performing Organization Address City/[facility]/ZIP Code Phon e Number M [facility] [address], [place] [address] [facility] [address] [place], [place] [address], [facility] [phone] Blood culture (04/28/2015 4:30 PM CDT) [facility] SimpleOrder Method Time Signature Specimen Blood Right [facility] Special Aerobic and [place] Requests anaerobic [facility] received Culture Micro No growth INFECTIOUS DISEASE DIAGNOSTIC LABORATORY Micro Report FINAL INFECTIOUS Status 05/04/2015 DISEASE DIAGNOSTIC LABORATORY Specimen Anatomical Collection Method Collection Time Receive d Time (Source) Location / / Volume Laterality Blood specimen STRUCTURE OF RIGHT 04/28/2015 4:30 PM 0 04/28/2015 5:42 (specimen) UPPER LIMB / CDT PM CDT Unknown Shweta Martins MD LAB - MICRO GENERAL ORDERABL ES Performing Organization Address City/[facility] Phon e Number INFECTIOUS DISEASES [address] [place] [address] DIAGNOSTIC LABORATORY, [facility] [address] [place], [place] [address], [facility] [phone] INFECTIOUS DISEASE [address] [place] [address], [facility] DIAGNOSTIC LABORATORY (ABNORMAL) Lactic acid (04/28/2015 4:30 PM CDT) P athologist Signature Lactic Acid 4.7 (HH) 0.4 - 2.0 [place] mmol/L [facility] Comment: Critical Value called to and read back Latricia GARCIA (ERB) ON 04.28.15 AT 1724 B Y SP/ALEXY Specimen Anatomical Collection Method Collection Time Receive d Time (Source) Location / / Volume Laterality Blood specimen 04/28/2015 4:30 PM 015 5:04 (specimen) CDT PM CDT Shweta Martins MD LAB - BLOOD ORDERABLES Performing Organization Address City/[facility] Phon e Number M [facility] [address], [place] [address] [facility] [address] [place], [place] [address] [phone] Partial thromboplastin time (04/28/2015 4:30 PM CDT) P athologist Signature PTT 32 22 - 37 sec [facility] Specimen Anatomical Collection Method Collection Time Receive d Time (Source) Location / / Volume Laterality Blood specimen 04/28/2015 4:30 PM 015 5:04 (specimen) CDT PM CDT Shweta Martins MD LAB - BLOOD ORDERABLES Performing Organization Address City/[facility]/ZIP [facility] Phon e Number [facility] [address] [place], [place] [address] [place] [address] [address] [place] [address] [address] (ABNORMAL) INR (04/28/2015 4:30 PM CDT) P athologist Signature INR 1.16 (H) 0.86 - 1.14 [facility] Specimen Anatomical Collection Method Collection Time Receive d Time (Source) Location / / Volume Laterality Blood specimen 04/28/2015 4:30 PM 015 5:04 (specimen) CDT PM CDT Shweta Martins MD LAB - BLOOD ORDERABLES Performing Organization Address [facility] Phon e Abhilash [place] [address] [address] [place], [place] [address] [place] [address] [address] [place], [place] [address] [address] (ABNORMAL) Comprehensive metabolic panel (04/28/2015 4:30 PM CDT) Analysis Performed At Patho logist Time Signature Sodium 134 133 - 144 [place] mmol/L [facility] Potassium 4.5 3.4 - 5.3 [place] mmol/L [facility] Chloride 96 94 - 109 [place] mmol/L [facility] Carbon Dioxide 23 20 - 32 [place] mmol/L [facility] Anion Gap 15 (H) 3 - 14 [place] mmol/L [facility] Glucose 111 (H) 70 - 99 [place] mg/dL [facility] Urea Nitrogen 37 (H) 7 - 30 [place] mg/dL [facility] Creatinine 1.93 (H) 0.66 - [place] 1.25 mg/dL [facility] GFR Estimate 36 (L) >60 [place] mL/min/1.[address] Comment: Non GFR Calc GFR Estimate If Black 44 (L) >60 mL/min/1.7m2 [facility] Comment: GFR Calc Calcium 8.5 8.5 - 10.1 mg/dL [facility] Bilirubin Total 0.4 0.2 - 1.3 mg/dL [facility] Albumin 2.9 (L) 3.4 - 5.0 g/dL [facility] Protein Total 6.7 (L) 6.8 - 8.8 g/dL [facility] Alkaline Phosphatase 48 40 - 150 U/L [facility] ALT 34 0 - 70 U/L [facility] HOS PITAL AST 36 0 - 45 U/L [facility]ITAL Specimen Anatomical Collection Method Collection Time Receive d Time (Source) Location / / Volume Laterality Blood specimen 04/28/2015 4:30 PM 015 5:04 (specimen) CDT PM CDT Shweta Martins MD LAB - BLOOD ORDERABLES Performing Organization Address City/State/ZIP Code Phon e Number M [place] [address] [address] [place] [address] [facility] [address] [phone] (ABNORMAL) CBC with platelets differential (04/28/2015 4:30 PM CDT) [facility] gist Method Time Signature WBC 11.8 (H) 4.0 - [facility] 11.0 HOSPITAL 10e9/L RBC Count 4.06 (L) 4.4 - 5.9 [facility] 10e12/L [facility] Hemoglobin 14.3 13.3 [facility] 17.7 g/dL [facility] Hematocrit 41.0 40.0 [facility] 53.0 % [facility] MCV 101 (H) 78 - 100 [facility] MCH 35.2 (H) 26.5 - [facility] 33.0 pg [facility] MCHC 34.9 31.5 [facility] 36.5 g/dL [facility] RDW 14.2 10.0 [facility] 15.0 % HOSPITAL Platelet Count 158 150 - 450 [facility] 10e9/L HOSPITAL Diff Method Manual [facility] Method DIFFERENTIAL % Neutrophils 87.0 % [facility] Comment: Increased Bands % Lymphocytes 7.0 % [facility] DIFFERENTIAL % Monocytes 2.0 % [facility] DIFFERENTIAL % Eosinophils 0.0 % [facility]FFER[facility] % Basophils 0.0 % [facility] % Metamyelocytes 2.0 % [facility] DIFFER[facility] % Promyelocytes 2.0 % [facility] Absolute Neutrophil 10.3 (H) 1.6 - 8.3 [facility] 10e9/L DIFFERENTIAL Absolute Lymphocytes 0.8 0.8 - 5.3 [facility] M 10e9/L DIFFERENTIAL Absolute Monocytes 0.2 0.0 - 1.3 [facility] 10e9/L DIFFERENTIAL Absolute Eosinophils 0.0 0.0 - 0.7 [facility] M 10e9/L DIFFERENTIAL Absolute Basophils 0.0 0.0 - 0.2 [facility] 10e9/L DIFFERENTIAL Absolute Metamyelocytes 0.2 (H) 0 10e9/L [facility] DIFFERENTIAL Absolute Promyeloctyes 0.2 (H) 0 10e9/L [facility]ENTIAL Macrocytes Present [facility] Toxic Granulation Present [facility] RBC Morphology Consistent with [facility] M reported results DIFFERENTIAL Platelet Estimate Normal [facility] Specimen Anatomical Collection Method Collection Time Receive d Time (Source) Location / / Volume Laterality Blood specimen 04/28/2015 4:30 PM 015 5:04 (specimen) CDT PM CDT Shweta Martins MD LAB - BLOOD ORDERABLES Performing Organization Address City/State/ZIP Code Phon e Number [facility] DIFFERENTIAL [facility] [address] [phone] EKG 12 lead (04/28/2015 4:25 PM CDT) [facility] gist Method Time Signature Interpretation ECG Click View RADIOLOGY Image link RESULTS to view waveform and result Specimen (Source) Anatomical Collection Method Collection Time Re ceived Time Location / / Volume Laterality 04/28/2015 4:25 PM CDT Shweta Martins MD ECG ORDERABLES Performing Organization Address City/State/ZIP Code Phon e Number RADIOLOGY RESULTS documented in this encounter Visit Diagnoses Diagnosis Anemia - Primary Anemia, unspecified Severe sepsis(995.92) Severe sepsis Pneumonia Pneumonia, organism unspecified Acute renal insufficiency Unspecified disorder of kidney and urete r COPD (chronic obstructive pulmonary dise ase) (H) Chronic airway obstruction, not elsewher e classified COPD exacerbation (H) Obstructive chronic bronchitis with exac erbation Sepsis due to pneumonia (H) documented in this encounter Administered Medications Inactive Administered Medications - up to 3 most recent administrations Medication Order MAR Action Action Date Dose Rate Site 0.9% sodium chloride BOLUS New Bag 04/28/2015 4:48 PM CDT 1,000 mLs 1000 mL/hr Intravenous, 1,000 mL, ONCE, at 1,000 mL/hr, Administer over 1 Hours, On Sun04/28/15 at 1639, For 1 dose 0.9% sodium chloride BOLUS New Bag 04/28/2015 4:49 PM CDT 1,000 mLs 1000 mL/hr Intravenous, 1,000 mL, ONCE, at 1,000 mL/hr, Administer over 1 Hours, On Sun04/28/15 at 1639, For 1 dose 0.9% sodium chloride BOLUS New Bag 04/28/2015 6:21 PM CDT 1,000 mLs 1000 mL/hr Intravenous, 1,000 mL, ONCE, at 1,000 mL/hr, Administer over 1 Hours, On Sun04/28/15 at 1807, For 1 dose 0.9% sodium chloride Rate/Dose Change 04/30/2015 11:56 AM 1,000 mLs 10 mL/hr infusion CDT at 125 mL/hr, Intravenous, CONTINUOUS, Starting on Sun04/28/15 at 204, Until Sun04/30/15 at 1127 Rate/Dose Verify 04/30/2015 4:00 AM CDT 1,000 mLs 125 mL/hr Rate/Dose Verify 04/30/2015 12:00 AM CDT 1,000 mLs 125 mL/hr acetaminophen (TYLENOL) tablet 650 mg Given 05/04/2015 8:57 AM CDT 650 mg 650 mg, Oral, EVERY 4 HOURS PRN, mild pain, Starting on Sun04/28/15 at 2033, Alternate ibuprofen (if ordered) with acetaminophen. Not to exceed 4 grams/day. Maximum acetaminophen dose from all sources = 75 mg/kg/day not to exceed 4 grams/day. Given 05/04/2015 12:35 AM CDT 650 mg Given 05/03/2015 8:35 PM CDT 650 mg albumin human 5 % injection 12.5 g New Bag 04/29/2015 1:04 AM CDT 12.5 g 12.5 g, Intravenous, ONCE, On Maida 04/29/15 at 0015, For 1 dose albuterol nebulizer solution (UD) 2.5 mg Given 04/28/2015 9:58 PM CDT 2.5 mg 2.5 mg, Nebulization, EVERY 6 HOURS RT, First dose on Sun04/28/15 at 204 albuterol nebulizer solution (UD) 2.5 mg Given 05/01/2015 12:47 AM CDT 2.5 mg 2.5 mg, Nebulization, EVERY 2 HOURS PRN, other, dyspnea, Starting on Sun04/28/15 at 203 amLODIPine (NORVASC) tablet 5 mg Given 05/04/2015 8:57 AM CDT 5 mg 5 mg, Oral, DAILY, First dose on Sun05/03/15 at 1230, Hold for SBP < 100 atenolol (TENORMIN) tablet 25 mg Given 05/03/2015 8:26 PM CDT 25 mg 25 mg, Oral, DAILY, First dose on Sun04/30/15 at 2000, For Adults, Hold if Heart Rate less than 60 bpm. Given 05/02/2015 8:28 PM CDT 25 mg Given 05/01/2015 10:06 PM CDT 25 mg atorvastatin (LIPITOR) tablet 40 mg Given 05/03/2015 9:40 PM CDT 40 mg 40 mg, Oral, AT BEDTIME, First dose on Sun04/30/15 at 2200 Given 05/02/2015 9:46 PM CDT 40 mg Given 05/01/2015 10:06 PM CDT 40 mg clopidogrel (PLAVIX) tablet 75 mg Given 05/04/2015 8:57 AM CDT 75 mg 75 mg, Oral, DAILY, First dose on Sun04/28/15 at 2045 Given 05/03/2015 9:04 AM CDT 75 mg Given 05/02/2015 9:44 AM CDT 75 mg guaiFENesin (MUCINEX) 12 hr tablet 600 m g Given 05/04/2015 8:57 AM CDT 600 mg 600 mg, Oral, 2 TIMES DAILY, First dose on Sun05/03/15 at 0945, DO NOT CRUSH. Given 05/03/2015 8:25 PM CDT 600 mg Given 05/03/2015 10:54 AM CDT 600 mg heparin sodium PF injection 5,000 Units Given 05/04/2015 8:57 AM CDT 5,000 Units 5,000 Units, Subcutaneous, EVERY 8 HOURS, First dose on Sun04/28/15 at 2200, HOLD HEParin IF platelet count falls below 50% baseline or < 100,000 / ??L and notify MD. Use this product If CrCl < 30 mL/min. Given 05/04/2015 12:12 AM CDT 5,000 Units Given 05/03/2015 3:32 PM CDT 5,000 Units insulin Aspart (NovoLOG) inj (RAPID ACTI NG) Given 05/03/2015 7:24 PM CDT 2 Units 1-7 Units, Subcutaneous, 3 TIMES DAILY BEFORE MEALS, First dose on Sun04/29/15 at 1300, Correction Scale - MEDIUM INSULIN RESISTANCE DOSING Do Not give Correction Insulin if Pre-Meal BG < 140. For Pre-Meal BG 140 - 189 give 1 unit. For Pre-Meal BG 190 - 239 give 2 units. For Pre-Meal BG 240 - 289 give 3 units. For Pre-Meal BG 290 - 339 give 4 units. For Pre-Meal BG 340- 399 give 5 units. For Pre-Meal BG 400-449 give 6 units For Pre-Meal BG = or > 450 give 7 units. To be given with prandial insulin, and based on pre-meal blood glucose. Notify MD if glucose > or = 350 mg/dL after administration of correction dose. If given at mealtime, must be administered 5 min before meal or immediately after. Given 05/02/2015 6:30 PM CDT 1 Units Given 05/01/2015 6:09 PM CDT 1 Units insulin Aspart (NovoLOG) inj (RAPID ACTI NG) Given 05/03/2015 7:24 PM CDT 2 Units 2 Units, Subcutaneous, 3 TIMES DAILY WITH MEALS, First dose on Sun04/29/15 at 1800, Hold if blood sugar < 120 If given at mealtime, must be administered 5 min before meal or immediately after. Given 05/02/2015 6:29 PM CDT 2 Units Given 05/02/2015 9:43 AM CDT 2 Units insulin glargine (LANTUS) injection 8 Un its Given 05/01/2015 10:06 PM CDT 8 Units 8 Units, Subcutaneous, AT BEDTIME, First dose (after last modification) on Maida 04/29/15 at 2200, *Not for IV use, SQ only. Do not mix with other insulins* Given 04/29/2015 8:47 PM CDT 8 Units ipratropium - albuterol 0.5 mg/2.5 mg/3 mL Given 04/30/2015 10:5 8 AM CDT 3 mLs (DUONEB) nebulizer solution 3 mL 3 mL, Nebulization, EVERY 4 HOURS, First dose on Sun04/28/15 at 2115 Given 04/30/2015 7:33 AM CDT 3 mLs Given 04/30/2015 4:02 AM CDT 3 mLs ipratropium - albuterol 0.5 mg/2.5 mg/3 mL Given 04/30/2015 8:57 PM CDT 3 mLs (DUONEB) nebulizer solution 3 mL 3 mL, Nebulization, EVERY 6 HOURS, First dose (after last modification) on Sun04/30/15 at 2000 ipratropium - albuterol 0.5 mg/2.5 mg/3 mL Given 05/04/2015 7:06 AM CDT 3 mLs (DUONEB) nebulizer solution 3 mL 3 mL, Nebulization, 4 TIMES DAILY, First dose (after last modification) on Sun05/01/15 at 0800 Given 05/03/2015 7:09 PM CDT 3 mLs Given 05/03/2015 3:00 PM CDT 3 mLs lactated ringers BOLUS 500 mL New Bag 04/28/2015 9:52 PM CDT 500 mLs Intravenous, 500 mL, ONCE, On Sun04/28/15 at 2130, For 1 dose levofloxacin (LEVAQUIN) New Bag 04/28/2015 6:02 PM CDT 750 mg 100 mL/hr intermittent infusion 750 mg STAT, 750 mg, Intravenous, ONCE, On Sun04/28/15 at 1745, For 1 dose, Administer at a rate of no greater than 100mL/hr, Indications: Community Acquired Pneumonia, Sepsis levofloxacin (LEVAQUIN) New Bag 05/03/2015 5:00 PM CDT 750 mg 100 mL/hr intermittent infusion 750 mg Routine, 750 mg, Intravenous, EVERY 24 HOURS, First dose on Maida 04/29/15 at 1800, Dose adjusted per renal dosing policy. Estimated CrCl = >50 mL/min. Administer at a rate of no greater than 100mL/hr, Indications: Community Acquired Pneumonia New Bag 05/02/2015 5:41 PM CDT 750 mg 100 mL/hr New Bag 05/01/2015 5:38 PM CDT 750 mg 100 mL/hr lisinopril (PRINIVIL,ZESTRIL) tablet 20 mg Given 05/04/2015 8:57 AM CDT 20 mg 20 mg, Oral, DAILY, First dose on Sun05/01/15 at 1430, Hold for SBP < 100 Given 05/03/2015 9:04 AM CDT 20 mg Given 05/02/2015 9:45 AM CDT 20 mg methylPREDNISolone sodium succinate Given 04/29/2015 5:12 AM CDT 40 mg (Solu-MEDROL) injection 40 mg 40 mg, Intravenous, EVERY 8 HOURS, First dose on Sun04/28/15 at 2130, Doses >125mg need to be in at least 50 mL IVPB Given 04/28/2015 9:50 PM CDT 40 mg methylPREDNISolone sodium succinate Given 04/30/2015 8:43 AM CDT 40 mg (Solu-MEDROL) injection 40 mg 40 mg, Intravenous, 2 TIMES DAILY, First dose (after last modification) on Sun04/29/15 at 2100, Doses >125mg need to be in at least 50 mL IVPB Given 04/29/2015 8:47 PM CDT 40 mg methylPREDNISolone sodium succinate Given 05/01/2015 8:37 AM CDT 40 mg (Solu-MEDROL) injection 40 mg 40 mg, Intravenous, DAILY, First dose (after last modification) on Sun05/01/15 at 0800, Doses >125mg need to be in at least 50 mL IVPB nicotine (NICODERM CQ) 14 MG/24HR 1 Given 05/02/2015 9:47 PM CDT 1 patch Left Arm patch 1 patch, Transdermal, DAILY PRN, smoking cessation, Starting on Sun04/29/15 at [address] Given 05/03/2015 9:07 AM CDT First dose on Sun04/29/15 at 1215, Chart every shift, confirming that patch is still in place on patient (no barcode scan needed). See patch order for dose information. Negative 05/02/2015 9:46 AM CDT Negative 05/02/2015 3:17 AM CDT ondansetron (ZOFRAN) injection 4 mg Given 04/30/2015 9:10 PM CDT 4 mg 4 mg, Intravenous, EVERY 6 HOURS PRN, nausea, vomiting, Administer over 2-5 Minutes, Starting on Sun04/28/15 at 2034, This is Step 1 of nausea and vomiting management. If nausea not resolved in 15 minutes, go to Step 2 prochlorperazine (COMPAZINE). oxyCODONE (ROXICODONE) tablet 2.5-5 mg Given 05/04/2015 12:35 AM CDT 5 mg 2.5-5 mg, Oral, EVERY 3 HOURS PRN, moderate to severe pain, Starting on Maida 04/29/15 at 1151 Given 05/03/2015 9:39 PM CDT 5 mg Given 05/03/2015 9:20 AM CDT 5 mg piperacillin-tazobactam (ZOSYN) New Bag 04/29/2015 5:09 AM CDT 2.2 5 g 100 mL/hr intermittent infusion 2.25 g STAT, 2.25 g, Intravenous, EVERY 6 HOURS, First dose on Sun04/28/15 at 0000, Indications: Community Acquired Pneumonia New Bag 04/29/2015 12:09 AM CDT 2.25 g 100 mL/hr piperacillin-tazobactam (ZOSYN) New Bag 04/28/2015 6:02 PM CDT 3.375 g 100 mL/hr intermittent infusion 3.375 g STAT, 3.375 g, Intravenous, ONCE, On Sun04/28/15 at 1745, For 1 dose, Indications: Community Acquired Pneumonia, Sepsis piperacillin-tazobactam (ZOSYN) New Bag 05/03/2015 8:23 PM CDT 3.375 g 100 mL/hr intermittent infusion 3.375 g Routine, 3.375 g, Intravenous, EVERY 6 HOURS, First dose on Maida 04/29/15 at 1200, For 18 doses, Dose adjusted per renal dosing policy. Estimated CrCl = >50 mL/min., Indications: Community Acquired Pneumonia New Bag 05/03/2015 3:30 PM CDT 3.375 g 100 mL/hr New Bag 05/03/2015 9:05 AM CDT 3.375 g 100 mL/hr polyethylene glycol (MIRALAX/GLYCOLAX) packet Given 05/04/20 15 8:57 AM CDT 17 g 17 g 17 g, Oral, DAILY, First dose on Maida 04/29/15 at 1215 Given 05/03/2015 9:05 AM CDT 17 g Given 05/01/2015 8:37 AM CDT 17 g potassium chloride (KLOR-CON) packet 20-40 Given 05/02/2015 6:28 PM CDT 20 mEq mEq 20-40 mEq, Oral, EVERY 2 HOURS PRN, potassium supplementation, Potassium Supplementation, Starting on Sun04/30/15 at 0559, Use if unable to tolerate tablets. Recheck K+ level 2 hrs after replacement dose if given for level less than 3.4, next AM (and QMWF if ordered). Repeat protocol if necessary. If Serum K+ 3.4-4.0, dose = 20 mEq x1. If Serum K+ 3.0-3.3, dose = 60 mEq po total dose (40 mEq x 1 followed in 2 hours by 20 mEq X1). If Serum K+ 2.5-2.9, dose = 80 mEq po total dose (40 mEq Q2H x2). If Serum K+ less than 2.5, See IV order. Dissolve packet contents in 4-8 ounces of cold water or juice. Given 04/30/2015 8:42 AM CDT 20 mEq Given 04/30/2015 6:19 AM CDT 40 mEq predniSONE (DELTASONE) tablet 40 mg Given 05/03/2015 9:04 AM CDT 40 mg 40 mg, Oral, DAILY, First dose on Sun05/02/15 at 1015 Given 05/02/2015 10:13 AM CDT 40 mg ranitidine (ZANTAC) injection 50 mg Given 05/01/2015 6:12 AM CDT 50 mg 50 mg, Intravenous, EVERY 8 HOURS, First dose on Sun04/30/15 at 2115 Given 04/30/2015 9:18 PM CDT 50 mg ranitidine (ZANTAC) tablet 150 mg Given 05/04/2015 8:57 AM CDT 150 mg 150 mg, Oral, 2 TIMES DAILY, First dose on Sun05/01/15 at 2000, Iv to po per protocol. Given 05/03/2015 8:26 PM CDT 150 mg Given 05/03/2015 9:05 AM CDT 150 mg sodium chloride (PF) 0.9% PF flush 3 mL Given 05/04/2015 12:12 AM CDT 3 mLs 3 mL, Intravenous, EVERY 8 HOURS, First dose on Sun04/28/15 at 1639, And Q1H PRN, to lock peripheral IV dormant line. Given 05/03/2015 3:35 PM CDT 3 mLs Given 05/03/2015 9:06 AM CDT 3 mLs temazepam (Restoril) capsule 7.5 mg Given 05/03/2015 9:40 PM CDT 7.5 mg 7.5 mg, Oral, AT BEDTIME PRN, sleep, Starting on Maida 04/29/15 at 1152 Given 05/02/2015 10:22 PM CDT 7.5 mg Given 05/01/2015 10:16 PM CDT 7.5 mg documented in this encounter Active and Recently Administered Medications Times are shown in CDT. Scheduled Medication Order 05/02/2015 05/03/2015 05/04/2015 amLODIPine (NORVASC) tablet 5 mg (CANCELED) 1310 (Not Given - Provider: Mya Oquendo RN - Reason: Other - Comment: SBP 106; pt declined at this time) 0857 (Given - Provider: Shelby Moody RN) 5 mg, Oral, DAILY, First dose on Sun05/03/15 at 1230, Hold for S BP < 100 atenolol (TENORMIN) tablet 25 mg (CANCELED) 2027 (Give n - Provider: Sandy Haro RN) 2025 (Given - Provider: Trice Sher, RICHY) 25 mg, Oral, DAILY, First dose on 11/02 at 2000, For Adults, Hold if Heart Rate less than 60 bpm. atorvastatin (LIPITOR) tablet 40 mg (CANCELED) 2145 (G iven - Provider: Sarah Mcintosh LPN) 2139 (Given - Provider: Trice Sher, RICHY) 40 mg, Oral, AT BEDTIME, First dose on Sun04/30/15 at 2200 clopidogrel (PLAVIX) tablet 75 mg (CANCELED) 0944 (Giv en - Provider: Marizol Ybarra LPN) 0904 (Given - Provider: Mya Oquendo RN) 0857 (Gi willy - Provider: Shelby Moody, RN) 75 mg, Oral, DAILY, First dose on Sun04/28/15 at 2045 guaiFENesin (MUCINEX) 12 hr tablet 600 mg (CANCELED) 1054 (Given - Provider: Mya Oquendo RN)2025 (Given - Provider: Trice Sher, RICHY) 0857 (Given - Provider: Shelby Moody, RICHY) 600 mg, Oral, 2 TIMES DAILY, First dose on Sun05/03/15 at 0945, DO NOT CRUSH. heparin sodium PF injection 5,000 Units (CANCELED) 001 9 (Given - Provider: Amy Andrade RN)0945 (Given - Provider: Marizol Ybarra LPN)1620 (Given - Provider: Sarah Mcintosh LPN) 0000 (Given - Provider: Shweta patterson RN)0905 (Given - Provider: Mya Oquendo RN)1532 (Given - Provider: Mya Oquendo RN) 0012 (Given - Provider: Radha Plata LPN)0857 (Given - Provider: Shelby Moody RN) 5,000 Units, Subcutaneous, EVERY 8 HOURS , First dose on Sun04/28/15 at 2200, HOLD HEParin IF platelet count falls below 50% baseline or < 100,000 / ??L and notify MD. Use this product If CrCl < 30 mL/min. insulin Aspart (NovoLOG) inj (RAPID ACTING) (CANCELED) 0815 (Not Given - Provider: Marizol Ybarra LPN - Reason: Order parameters not met - Comment: [id number] (Not Given - Provider: Marizol Ybarra LPN - Reason: Order parameters not met)1830 (Given - Provider: Sarah Mcintosh LPN) 0755 (Not Given - Provider: Mya Oquendo RN - Reason: Order parameters not met - Comment: bgl [phone] (Not Given - Provider: Mya Oquendo RN - Reason: Order parameters not met - Comment: bgl [phone])1924 (Given - Provider: Mya Oquendo RN) 0743 (Not Given - Provider: Shelby riddle RN - Reason: Order parameters not met - Comment: bg 75)1242 (Not Given - Provider: Shelby Moody RN - Reason: Patient/family refused - Comment: not going home on inuslin or steroids) 1-7 Units, Subcutaneous, 3 TIMES DAILY B EFORE MEALS, First dose on Maida 04/29/15 at 1300, Correction Scale - MEDIUM INSULIN RESISTANCE DOSING Do Not give Correction Insulin if Pre-Meal BG < 140. For Pr e-Meal BG 140 - 189 give 1 unit. For Pre -Meal BG 190 - 239 give 2 units. For Pre-Meal BG 240 - 289 give 3 units. For Pre-Meal BG 290 - 339 give 4 units. For Pre-Meal BG 340- 399 give 5 units. For Pre-Me al BG 400-449 give 6 units For Pre-Meal BG = or > 450 give 7 units. To be given with prandial insulin, and based on pre-meal blood glucose. Notify MD if glucose > or = 350 mg/dL after administrati on of correction dose. If given at mealt jhonatan, must be administered 5 min before meal or immediately after. insulin Aspart (NovoLOG) inj (RAPID ACTING) (CANCELED) 0943 (Given - Provider: Marizol Ybarra LPN)1238 (Not Given - Provider: Chastity Rodgers RN - Reason: Order parameters not met)1829 (Given - Provider: Sarah Mcintosh LPN) 0755 (Not Given - Provider: Mya Oquendo RN - Reason: Order parameters not met - Comment: bgl 82)1112 (Not Given - Provider: Mya Oquendo RN - Reason: Order parameters not met - Comment: bgl 114)1924 (Given - Provider: Mya Oquendo RN) 0745 (Not Given - Provider: Shelby riddle RN - Reason: Order parameters not met - Comment: bg 75)1241 (Not Given - Provider: Shelby Moody RN - Reason: Patient/family refused - Comment: discharging home, won't be on insulin or steroids) 2 Units, Subcutaneous, 3 TIMES DAILY WIT H MEALS, First dose on Maida 04/29/15 at 1800, Hold if blood sugar < 120 If given at mealtime, must be administered 5 min before meal or immediately after. ipratropium - albuterol 0.5 mg/2.5 mg/3 mL (DUONEB) nebulizer solution 3 mL (CANCELED) 0808 (Given - Provider: Mac Berry T)1223 (Given - Provider: Samantha Castañeda, RT)1548 (Given - Provider: Tori Vann, RT)2022 (Given - Provider: Susy Troncoso, RT) 0822 (Not Given - Provider: Brie lauren, RT - Reason: Patient not available - Comment: No SOB noted.)1134 (Given - Provider: Brie Avila, RT)1500 (Given - Provider: Mandy Munguia, RT)1909 (Given - Provider: Mandy Munguia, RT) 0706 (Given - Provider: Mac Zafar T)1128 (Not Given - Provider: Brie Avila RT - Reason: Patient/family refused - Comment: discharging) 3 mL, Nebulization, 4 TIMES DAILY, First dose on 05/01/15 at 0800 levofloxacin (LEVAQUIN) intermittent infusion 750 mg ( CANCELED) 1741 (New Bag - Provider: Sandy Haor RN) 1700 (New Bag - Provider: Mya Oquendo, RN) 750 mg, Intravenous, EVERY 24 HOURS, Fir st dose on Maida 04/29/15 at 1800, Dose adjusted per renal dosing policy. Estimated CrCl = >50 mL/min. Administer at a rate of no greater than 100mL/hr, Indications: Community Acquired Pneumonia lisinopril (PRINIVIL,ZESTRIL) tablet 20 mg (CANCELED) 0945 (Given - Provider: Marizol Ybarra LPN) 0904 (Given - Provider: Mya Oquendo, RICHY) 0857 (Given - Provider: Shelby Moody, RICHY) 20 mg, Oral, DAILY, First dose on 05/01/15 at 1430, Hold for SBP < [address] (CANCELED) 0317 (Negative - Pr ovider: Kong Bobby LPN)0946 (Negative - Provider: Marizol Ybarra LPN)1614 (Not Given - Provider: Sarah Mcintosh LPN - Reason: Patient/family refused) 0122 (Patch in Place - Provider: Shweta Casarez RN)0907 (Given - Provider: Mya Oquendo, RN)1535 (Patch in Place - Provider: Mya Oquendo RN) 0011 (Patch in Place - Provider: Radha Plata LPN)0800 (Canceled Entry - Provider: Orders Generic Provider - Comment: Automatically canceled at discontinue of medication order) Starting Maida 04/29/15 at 1215, Chart ever y shift, confirming that patch is still in place on patient (no barcode scan needed). See patch order for dose information. piperacillin-tazobactam (ZOSYN) intermittent infusion 3.375 g (COMPLETED) 0018 (New Bag - Provider: Amy Andrade RN)0543 (New Bag - Provider: Kong Bobby LPN)1205 (New Bag - Provider: Marizol Ybarra LPN)2027 (New Bag - Provider: Sandy Haro RN - Comment: levmagda running, zosyn rescheduled for 1999,199 0125 (New Bag - Provider: Shweta adkins RN)0905 (New Bag - Provider: Mya Oquendo RN)1530 (New Bag - Provider: Mya Oquendo RN)2022 (New Bag - Provider: Trice Sher RN) 3.375 g, Intravenous, EVERY 6 HOURS, Fir st dose on Maida 04/29/15 at 1200, Dose adjusted per renal dosing policy. Estimated CrCl = >50 mL/min., Indications: Community Acquired Pneumonia ,0800,&1400) polyethylene glycol (MIRALAX/GLYCOLAX) packet 17 g (CA NCELED) 0944 (Not Given - Provider: Marizol Ybarra LPN - Reason: Patient/family refused) 0905 (Given - Provider: Mya Oquendo RN) 0857 (Given - Provider: Shelby Moody RN) 17 g, Oral, DAILY, First dose on Maida 04/29/15 at 1215 predniSONE (DELTASONE) tablet 40 mg (CANCELED) 1013 (G iven - Provider: Chastity Rodgers RN) 0904 (Given - Provider: Mya Oquendo RN) 40 mg, Oral, DAILY, First dose on Sun05/02/15 at 1015 ranitidine (ZANTAC) tablet 150 mg (CANCELED) 0945 (Giv en - Provider: Marizol Ybarra LPN)2030 (Given - Provider: Sandy Haro RN) 0905 (Given - Provider: Mya Oquendo RN)202 (Given - Provider: Trice Sher, RICHY) 0857 (Given - Provider: Shelby Moody, RICHY) 150 mg, Oral, 2 TIMES DAILY, First dose on Sun05/01/15 at 2000, Iv to po per protocol. sodium chloride (PF) 0.9% PF flush 3 mL (CANCELED) 020 4 (Not Given - Provider: Kong Bobby LPN - Reason: IV Infusing)0944 (Not Given - Provider: Marizol Ybarra LPN - Reason: IV Infusing)1618 (Given - Provider: Sarah Mcintosh LPN) 0000 (Not Given - Provider: Shweta Casarez RN - Reason: IV Infusing)0906 (Given - Provider: Mya Oquendo RN)1535 (Given - Provider: Mya Oquendo RN) 0012 (Given - Provider: Radha Plata LPN)1148 (Not Given - Provider: Shelby Moody RN - Reason: Loss of IV access) 3 mL, Intravenous, EVERY 8 HOURS, First dose on Sun04/28/15 at 1639, And Q1H PRN, to lock peripheral IV dormant line. PRN Medication Order 05/02/2015 05/03/2015 05/04/2015 acetaminophen (TYLENOL) tablet 650 mg (CANCELED) 0300 (Given - Provider: Kong Bobby LPN)0945 (Given - Provider: Marizol Ybarra LPN)1619 (Given - Provider: Sarah Mcintosh LPN)2147 (Given - Provider: Sarah Mcintosh LPN) 0122 (Given - Provider: Shweta patterson RN)0904 (Given - Provider: Mya Oquendo RN)1309 (Given - Provider: Mya Oquendo RN)2035 (Given - Provider: Trice Sher RN) 0035 (Given - Provider: Radha Plata LPN)0857 (Given - Provider: Shelby Moody, RICHY) 650 mg, Oral, EVERY 4 HOURS PRN, mild pa in, Starting 04/28/15 at 2034, Alternate ibuprofen (if ordered) with acetaminophen. Not to exceed 4 grams/day. Maximum acetaminophen dose from all sources = 75 mg/kg/day not to exceed 4 grams/day. albuterol (PROAIR HFA, PROVENTIL HFA, VENTOLIN HFA) inhaler 2 pu ff 2 puff, Inhalation, EVERY 6 HOURS PRN, wheezing, Starting Mon at 0940 nicotine (NICODERM CQ) 14 MG/24HR 1 patch (CANCELED) 2 147 (Given - Provider: Sarah Mcintosh LPN) 1 patch, Transdermal, DAILY PRN, smoking cessation, Starting Maida 04/29/15 at 1203 oxyCODONE (ROXICODONE) tablet 2.5-5 mg (CANCELED) 0300 (Given - Provider: Kong Bobby LPN)0945 (Given - Provider: Marizol Ybarra LPN)1619 (Given - Provider: Sarah Mcintosh LPN)2147 (Given - Provider: Sarah Mcintosh LPN) 0122 (Given - Provider: Shweta patterson RN)0920 (Given - Provider: Mya Oquendo, RICHY)2139 (Given - Provider: Trice Sher RN) 0035 (Given - Provider: Radha Plata LPN) 2.5-5 mg, Oral, EVERY 3 HOURS PRN, moder ate to severe pain, Starting Maida 04/29/15 at 1151 potassium chloride (KLOR-CON) packet 20-40 mEq (CANCEL ED) 1828 (Given - Provider: Sarah Mcintosh LPN) 20-40 mEq, Oral, EVERY 2 HOURS PRN, Star ting 04/30/15 at 0559, potassium supplementation, Potassium Supplementation, Use if unable to tolerate tablets. Recheck K+ level 2 hrs after replacement dose i f given for level less than 3.4, next AM (and QMWF if ordered). Repeat protocol if necessary. If Serum K+ 3.4-4.0, dose = 20 mEq x1. If Serum K+ 3.0-3.3, dose = 60 mEq po total dose (40 mEq x 1 followed in 2 hours by 20 mEq X1). If Serum K+ 2 .5-2.9, dose = 80 mEq po total dose (40 mEq Q2H x2). If Serum K+ less than 2.5, See IV order. Dissolve packet contents in 4-8 ounces of cold water or juice. temazepam (Restoril) capsule 7.5 mg (CANCELED) 2 (G iven - Provider: Sarah Mcintosh LPN) 2140 (Given - Provider: Trice Sher RN) 7.5 mg, Oral, AT BEDTIME PRN, sleep, Starting Maida 04/29/15 at 115 2 documented in this encounter Care Teams Service Loss Control Consultant Relationship Specialty Start Date End Date Noemí Champagne MD PCP - General Family Practice 04/28/15 11/04/15 [facility] [id number] [place] [address] documented as of this encounter
--- OUTSIDE RECORDS SUMMARY | 2022-08-25 14:27 | XMS_ITS | Encounter Summary ---
:1960 Author Organization [place] Address [address] [facility] [place] [address] Care Team Providers Name Role Phone Clinic, Sammie Dowell Primary Care Provider [phone] Reason for Visit Reason Comments Hospital F/U Encounter Details Date Type Department Care Team Description 09/21/2016 [facility] Robyn Almaraz Alco hol-induced acute pancreatitis without infection or necrosis (Primary Dx); Visit Geriatric CHANDRIKA Alvarez CNP Alcohol dependence with unspecified alco hol-induced disorder (H); Transitional Care [address] [place] [address] Chronic alcohol abuse; [address] [place]; [place] [address] [place] [address] Candidemia (H); [phone] Chronic obstruc tive pulmonary disease, unspecified COPD type (H); (Work) Severe malnutrition (H); Hypocalce guillermo; Neck and should er pain; Remote history of stroke; Right sided wea kness, mild; Tobacco use dis order; Constipation, u nspecified constipation type; Cough; Physical decond itioning Social History Tobacco Use Types Packs/Day Years Used Date Current Every Day Smoker 1 28 Alcohol Use Standard Drinks/Week Comments Yes 1.7 (1 standard drink = 0.6 oz pure alco hol) Sex Assigned at Date Recorded Not on file documented as of this encounter Last Filed Vital Signs Vital Sign Reading Time Taken Comments Blood Pressure 140/86 09/21/2016 10:06 AM CDT Pulse 79 09/21/2016 10:06 AM CDT Temperature 36.8 ??C (98.3 ??F) 09/21/2016 10:06 AM CDT Respiratory Rate 16 09/21/2016 10:06 AM CDT Oxygen Saturation 92% 09/21/2016 10:06 AM CDT Inhaled Oxygen Concentration - - Weight 58.1 kg (128 lb) 09/21/2016 10:06 AM CDT Height 175.3 cm (5' 9) 09/21/2016 10:06 AM CDT Body Mass Index 18.9 09/21/2016 10:06 AM CDT documented in this encounter Progress Notes Robyn Almaraz, TRADING ANALYST MOCCASIN SEWER - 09/21/2016 10:07 AM CDT [facility] PRIMARY CARE PROVIDER AND CLINIC: Sammie Salguero [address] [address] Chief Complaint Patient presents with ??? Hospital F/U HPI: Hay Gutierrez is a 56 year old (1960),admitted to the [facility] from [facility]. Hospital stay 08/25/16 through 09/20/16. Admitted to this facility for rehab, medical management and nursing care. Current issues are: Per Hospital Course: Hay Gutierrez is a 56 year old male with history of HTN, COPD, prior CVA and daily ETOH use.?? He was admitted on 08/25/2016 with abdominal pain and SOB due to acute pancreatitis.?? Patient developed alcohol withdrawal which subsequently resolved.?? Hospital course was complicated by development offever, occuring several days into admission.?? He was started on antibiotics and CT was repeated on 09/01/16, showing pancreatitis with increased bilateral pleural effusion and peritoneal fluid but no abscess or pseudocyst formation.?? He completed one week of antibiotics (Meropenem then Zosyn) which were subsequently stopped.?? He was on TPN but this was stopped due to improving intake.?? He had recurrence of significant fevers.?? CT of abdomen and pelvis was repeated on 09/10 and showed pancreaticnecrosis.?? Meropenem was started for necrosis.?? Blood cultures (11/20) grew ayan which has been treated with Fluconazole.?? Meropenem was stopped.?? Fever resolved.?? Pancreatic necrosis was thoughtto not be infected. ?? Abdominal pain is much improved.?? Patient developed some agitation and confus ion on 09/14/16 which has improved.?? Hay has continued to slowly improve, but remains weak.?? He will discharge to TCU today and follow up with the [facility] in 1-2 weeks.?? He will be on oral Fluconazole for 5 more days.?? I am requesting a BMP later in the week as Hay has been started on Lisinopril in the last 4 days.?? I am also requesting a CBC later in the week as Hay has had some lingering moderate leukocytosis.?? This is likely related to pancreatitis with area of necrosis and candidemia, and may take a while to resolve.?? Alert, calm, lying in bed appropriate in conversation. Reports congested cough started approx 2 daysago- denies sore throat, SOB, chest pain, fever or chills. Eating and sleeping okay. Reports very constipated no bowel movement in 5 days. Denies abd pain, but reports discomfort/pressure. Denies n/v- states is voiding without issue. Reports is not planning to drink ETOH again and has resources forAA. States was drinking approx 2 bloody ander's and a few beers each night. CODE STATUS/ADVANCE DIRECTIVES DISCUSSION: Full Code Patient's living condition: lives with spouse ALLERGIES:Review of patient's allergies indicates no known allergies. PAST MEDICAL HISTORY: has a past medical history of HTN (hypertension); COPD (chronic obstructive pulmonary disease) (H); CVA (cerebral infarction); and Sciatic nerve pain. He also has no past medical history of Coronary artery disease, Asthma, Congestive heart failure, unspecified, Arthritis, Unspecified cerebral artery occlusion with cerebral infarction, Thyroid disease, Diabetes mellitus (H), Malignant neoplasm (H), or Blood transfusion. PAST SURGICAL HISTORY: has no past surgical history on file. FAMILY HISTORY: family history includes CANCER in his father and sister. SOCIAL HISTORY: reports that he has been smoking. He does not have any smokeless tobacco history on file. He reports that he drinks about 1.0 oz of alcohol per week. He reports that he does not use illicit drugs. Post Discharge Medication Reconciliation Status: discharge medications reconciled and changed, per note/orders (see AVS). Current Outpatient Prescriptions Medication Sig Dispense Refill ??? oxyCODONE (ROXICODONE) 5 MG immediate release [...] mg) by mouth daily 30 tablet ??? risperiDONE (RISPERDAL) 0.25 MG tablet Take 1 tablet (0.25 mg) by mouth At Bedtime for 4 days ??? atenolol (TENORMIN) 50 MG tablet Take 1 tablet (50 mg) by mouth daily ??? mqubxnm-myprkd-wewrbqvf (CREON 12) 95940 UNITS CPEP Take 1 capsule (12,000 Units) [...] by mouth daily 60 tablet 3 ??? fluconazole (DIFLUCAN) 200 MG tablet Take 1 tablet (200 mg) by mouth daily for 7 days ??? fluticasone - vilanterol (BREO ELLIPTA) 100-25 MCG/INH oral inhaler Inhale 1 puff into the lungsdaily ??? umeclidinium bromide (INCRUSE ELLIPTA) 62.5 MCG/INH inhalation capsule Inhale 62.5 mcg into the lungs daily ??? ASPIRIN PO Take 81 mg by mouth daily ??? Cholecalciferol (VITAMIN D3 PO) Take 1,000 Units by mouth ROS: 4 point ROS including Respiratory, CV, GI and , other than that noted in the HPI, is negative Exam: BP 140/86 mmHg Pulse 79 Temp(Src) 98.3 ??F (36.8 ??C) Resp 16 Ht 5' 9 (1.753 m) Wt 128 lb(58.06 kg) BMI 18.89 kg/m2 SpO2 92% GENERAL APPEARANCE: Alert, in no distress - thin ENT: Mouth and posterior oropharynx normal, moist mucous membranes EYES: EOM, conjunctivae, lids, pupils and irises normal NECK: No adenopathy,masses or thyromegaly RESP: respiratory effort and palpation of chest normal, Lungs clear to auscultation- congested cough CV: Palpation and auscultation of heart done , regular rate and rhythm, no murmur, rub, or gallop, peripheral edema - none noted ABDOMEN: normal bowel sounds, slight firm, nontender, no hepatosplenomegaly or other masses : palpation of bladder WNL M/S: Gait and station normal Digits and nails normal - MUNOZ - generalized weakness SKIN: Inspection of skin and subcutaneous tissue baseline, Palpation of skin and subcutaneous tissuebaseline NEURO: Cranial nerves 2-12 are normal tested and grossly at patient's baseline, Examination of sensation by touch normal PSYCH: oriented X 3, affect and mood normal Lab/Diagnostic data: WBC Date Value Ref Range Status 09/17/2016 14.0* 4.0 - 11.0 10e9/L Final HEMOGLOBIN Date Value Ref Range Status 09/17/2016 7.6* 13.3 - 17.7 g/dL Final 09/16/2016 7.5* 13.3 - 17.7 g/dL Final Last Basic Metabolic Panel: NA 137 09/17/2016 POTASSIUM 3.5 09/20/2016 TRAY 8.4 09/17/2016 CO2 31 09/17/2016 BUN 9 09/17/2016 CR 0.63 09/17/2016 GLC 82 09/17/2016 WBC 14.0 09/17/2016 RBC 2.33 09/17/2016 HGB 7.6 09/17/2016 HCT 24.5 09/17/2016 MCV 105 09/17/2016 MCH 32.6 09/17/2016 MCHC 31.0 09/17/2016 RDW 17.7 09/17/2016 PLT 508 09/17/2016 ASSESSMENT/PLAN: Alcohol-induced acute pancreatitis without infection or necrosis EtOH dependence (H) Chronic alcohol abuse - open to cessation - ACP if amenable, provide chem dep resources - completed IV abx inpatient, improving - follow clinically - f/w biliary clinic in 1- 2- weeks. Agitation - ? 2/2 ETOH WD inpatient - since resolved Candidemia (H) - complete Diflucan course 09/26 - observe VS - for s/s infection COPD (chronic obstructive pulmonary disease) (H) - mild dry cough - continue on currrent with fluticasone and Umeclidinium - follow clinically Severe malnutrition (H) - extended hosp, chronic ETOH, TPN inpatent - Hris Analyst referral - nutritional supplements - add Thiamine, continue MVI- - risk for skin breakdown, daily checks and add air mattress - observe weights/intake Hypocalcemia Hypomagnesemia - 2/2 above - recheck, replace prn Neck and shoulder pain- - improving - continue ibuprofen and ketoprofen gel Remote history of stroke Right sided weakness, mild - noted - on ASA Tobacco use disorder - not currently smoking - offer nicotine replacement Constipation, unspecified constipation type - Dulcolax supp 10 mg pr x 1 today (effective) - Senna S 2 BID until moving bowels regularly then can taper back. Physical deconditioning Information reviewed: Medications, vital signs, orders, nursing notes, problem list, hospital information. Total time spent with patient visit was 45 min including patient visit and review of past records. Greater than 50% of total time spent with counseling and coordinating care. Electronically signed by: Robyn Almaraz APRN CNP ENT MANAGEMENT SPECIALIST documented in this encounter Plan of Treatment Not on filedocumented as of this encounter Visit Diagnoses Diagnosis Alcohol-induced acute pancreatitis witho ut infection or necrosis - Primary Alcohol dependence with unspecified alco hol-induced disorder (H) Chronic alcohol abuse Alcohol abuse, unspecified Agitation Other and unspecified special symptom or syndrome, not elsewhere classified Candidemia (H) Disseminated candidiasis Chronic obstructive pulmonary disease, u nspecified COPD type (H) Severe malnutrition (H) Nutritional marasmus Hypocalcemia Neck and shoulder pain Remote history of stroke Transient ischemic attack (TIA), and cer ebral infarction without residual deficits Right sided weakness, mild Muscle weakness (generalized) Tobacco use disorder Constipation, unspecified constipation t ype Cough Physical deconditioning Debility, unspecified documented in this encounter Care Teams Orthopedic Technician Relationship Specialty Start Date End Date Clinic, Sammie Dowell PCP - General 11/05/15 10/25/21 [id number] [place] [address] documented as of this encounter
--- OUTSIDE RECORDS SUMMARY | 2022-08-25 14:28 | XMS_ITS | Encounter Summary ---
:1960 Author Organization [place] Address [address] [facility] [place] [address] Care Team Providers Name Role Phone Unavailable Primary Care Provider Unavailable Encounter Details Date Type Department Care Team Description 08/10/2006 Historic Notes INTERFACED REPORT Interface, Transcript onMD Social History Tobacco Use Types Packs/Day Years Used Date Never Assessed Sex Assigned at Date Recorded Not on file documented as of this encounter Progress Notes Interface, Catshovel Driver - 02/06/2011 10:50 PM CDT INITIAL NUTRITION ASSESSMENT REASON FOR ASSESSMENT: LOS 7 Days No nutrition problem identified at this time. Patients nutritional status does not appear to be compromised. Will re-evaluate in 7 days (or sooner if condition changes). Patients weight > 100% IBW (82%) Weight stable Tolerating current diet Will provide nutrition education, if needed [Signature] Author:Marissa Mayer (Ac/Dc Rewinder) [Signed 13:31] documented in this encounter Plan of Treatment Not on filedocumented as of this encounter Visit Diagnoses Not on filedocumented in this encounter
--- OUTSIDE RECORDS SUMMARY | 2022-08-25 14:28 | XMS_ITS | Encounter Summary ---
:1960 Author Organization [place] Address [address] [facility] [place] [address] Care Team Providers Name Role Phone Dominick Warner Primary Care Provider Reason for Visit Reason Onset Date Comments CD Outpatient 11/28/2011 walter cochran Encounter Details Date Type Department Care Team Description 11/28/[address] [facility] Generic, Behavioral CD Outpatient (cd Behavioral Health Intake, MD cochran) Intake [address] [place] [address] Social History Tobacco Use Types Packs/Day Years Used Date Never Assessed Sex Assigned at Date Recorded Not on file documented as of this encounter Miscellaneous Notes Telephone Encounter - Surekha Diehl - 11/28/2011 12:08 PM CST .............................INTERVENTION............................ PER MOTHER IN LAW: etoh Daily drinking Probably to intox Medical: Hypertension No mh No legal known Hx of cd tx @ 3 yrs ago His is being assessed also. Her parents are doing a low ng intervention with them both. WINDER documented in this encounter Plan of Treatment Not on filedocumented as of this encounter Visit Diagnoses Not on filedocumented in this encounter Care Teams Media Buyer Relationship Specialty Start Date End Date Dominick Warner PCP - General 02/20/12 04/27/15 documented as of this encounter
--- OUTSIDE RECORDS SUMMARY | 2022-08-25 14:28 | XMS_ITS | Encounter Summary ---
:1960 Author Organization [place] Address [address] [facility] [place] [address] Care Team Providers Name Role Phone Unavailable Primary Care Provider Unavailable Encounter Details Date Type Department Care Team Description 08/05/2006 Historic Results INTERFACED REPORT Admit, Unknown Social History Tobacco Use Types Packs/Day Years Used Date Never Assessed Sex Assigned at Date Recorded Not on file documented as of this encounter Plan of Treatment Not on filedocumented as of this encounter Procedures Procedure Name Priority Date/Time Associated Comments Diagnosis BLOOD CULTURE STAT 08/05/2006 5:30 PM Results for this CDT procedure are i n the results section. SPUTUM CULTURE Routine 08/05/2006 5:25 PM Results for this AEROBIC BACTERIAL CDT procedure are in the results section. GRAM STAIN Routine 08/05/2006 5:25 PM Results f or this CDT procedure are i n the results section. BLOOD GAS ARTERIAL STAT 08/05/2006 5:25 PM Res ults for this AND OXYHGB CDT procedure are i n the results section. BLOOD CULTURE STAT 08/05/2006 5:25 PM Results for this CDT procedure are i n the results section. HEMOGRAM DIFFERENTIAL STAT 08/05/2006 4:55 PM Results for this AND PLATELET CDT procedure are i n the results section. HEPATIC FUNCTION Routine 08/05/2006 4:55 PM Resul ts for this PANEL CDT procedure are i n the results section. ETHYL ALCOHOL LEVEL STAT 08/05/2006 4:55 PM Re sults for this CDT procedure are i n the results section. BASIC METABOLIC PANEL STAT 08/05/2006 4:55 PM Results for this CDT procedure are i n the results section. documented in this encounter Results Blood culture (08/05/2006 5:30 PM CDT) [facility] Method Time Signature Specimen Blood MISYS Description Culture Micro No growth MISYS after 6 days Micro Report FINAL MISYS Status Specimen Anatomical Collection Method Collection Time Receive d Time (Source) Location / / Volume Laterality 08/05/2006 5:30 PM 6 5:12 CDT PM CDT Soraida Campos MD LAB - MICRO GENERAL ORDERABL ES Performing Organization Address City/[facility] Phon e Number MISYS (ABNORMAL) Blood gas arterial and oxyhgb (08/05/2006 5:25 PM CDT) athologist Signature pH Arterial 7.43 7.35 - MISYS 7.45 pH pCO2 Arterial 31 (L) 35 - 45 mm MISYS Hg pO2 Arterial 48 (LL) 80 - 105 MISYS mm Hg Comment: Critical Value called to and read back gregorio RUDD(ERA)AT 17:37 ON 08.05.06 BY LP Oxyhemoglobin Arterial 83 (L) 92 - 100 % MISYS FIO2 Room Air MISYS Bicarbonate Arterial 20 (L) 21 - 28 mmol/L MISY S Specimen Anatomical Collection Method Collection Time Receive d Time (Source) Location / / Volume Laterality 08/05/2006 5:25 PM 6 5:12 CDT PM CDT Soraida Campos MD LAB - BLOOD ORDERABLES Performing Organization Address [facility] Phon e Number MISYS Blood culture (08/05/2006 5:25 PM CDT) [facility] Method Time Signature Specimen Blood MISYS Description Culture Micro No growth MISYS after 6 days Micro Report FINAL MISYS Status Specimen Anatomical Collection Method Collection Time Receive d Time (Source) Location / / Volume Laterality 08/05/2006 5:25 PM 6 5:12 CDT PM CDT Soraida Campos MD LAB - MICRO GENERAL ORDERABL ES Performing Organization Address [facility] Code Phon e Number MISYS Gram stain (08/05/2006 5:25 PM CDT) [facility] Method Time Signature Specimen Sputum MISYS Description Gram Stain Mixed MISYS bacterial edson Comment: No predominant organisms seen Many PMNs seen <10 Squamous epithelial cells/low power field Micro Report Status FINAL [id number] MISYS Specimen Anatomical Collection Method Collection Time Receive d Time (Source) Location / / Volume Laterality 08/05/2006 5:25 PM 6 6:[address] Unknown Admit LAB - MICRO GENERAL ORDERABL ES Performing Organization Address City/[facility] Code Phon e Number MISYS Sputum culture (08/05/2006 5:25 PM CDT) [facility] Method Time Signature Specimen Sputum MISYS Description Culture Micro Normal edson MISYS Micro Report FINAL MISYS Status [id number] Specimen Anatomical Collection Method Collection Time Receive d Time (Source) Location / / Volume Laterality 08/05/2006 5:25 PM 6 6:[address] Unknown Admit LAB - MICRO GENERAL ORDERABL ES Performing Organization Address City/[facility] Code Phon e Number MISYS (ABNORMAL) Hemogram differential and platelet (08/05/2006 4:55 PM CDT) [facility] Method Time Signature MCV 98 78 - 100 MISYS fl MCH 33.2 (H) 26.5 - MISYS 33.0 pg MCHC 34.0 32.0 - MISYS 36.0 g/dL RDW 13.3 10.0 - MISYS 15.0 % WBC 10.9 4.0 - MISYS 11.0 10e9/L RBC Count 5.30 4.4 - 5.9 MISYS 10e12/L Hemoglobin 17.6 13.3 - MISYS 17.7 g/dL Hematocrit 51.7 40.0 - MISYS 53.0 % % Neutrophils 76 (H) 40 - 75 % MISYS % Lymphocytes 13 (L) 20 - 48 % MISYS % Monocytes 11 0 - 12 % MISYS % Eosinophils 0 0 - 6 % MISYS % Basophils 0 0 - 2 % MISYS Platelet Count 185 150 - 450 MISYS 10e9/L Absolute 8.2 1.6 - 8.3 MISYS Neutrophil 10e9/L Absolute 1.4 0.8 - 5.3 MISYS Lymphocytes 10e9/L Absolute 1.2 0.0 - 1.3 MISYS Monocytes 10e9/L Absolute 0.0 0.0 - 0.7 MISYS Eosinophils 10e9/L Absolute 0.0 0.0 - 0.2 MISYS Basophils 10e9/L Diff Method Automated MISYS Method Specimen Anatomical Collection Method Collection Time Receive d Time (Source) Location / / Volume Laterality 08/05/2006 4:55 PM 6 5:12 CDT PM CDT Soraida Campos MD LAB - BLOOD ORDERABLES Performing Organization Address City/State/ZIP Code Phon e Number MISYS Basic metabolic panel (08/05/2006 4:55 PM CDT) P athologist Signature Sodium 138 133 - 144 MISYS mmol/L Potassium 3.6 3.4 - 5.3 MISYS mmol/L Chloride 101 94 - 109 MISYS mmol/L Carbon Dioxide 27 20 - 32 MISYS mmol/L Glucose 97 60 - 110 MISYS mg/dL Urea Nitrogen 9 5 - 24 MISYS mg/dL Creatinine 0.80 0.80 - MISYS 1.50 mg/dL GFR Estimate >90 >60 MISYS mL/min/1.7 m2 GFR Estimate If >90 >60 MISYS Black mL/min/1.7 m2 Calcium 8.8 8.5 - 10.4 MISYS mg/dL Anion Gap 11 6 - 17 MISYS mmol/L Specimen Anatomical Collection Method Collection Time Receive d Time (Source) Location / / Volume Laterality 08/05/2006 4:55 PM 6 5:12 CDT PM CDT Soraida Campos MD LAB - BLOOD ORDERABLES Performing Organization Address City/State/ZIP Code Phon e Number MISYS Alcohol ethyl (08/05/2006 4:55 PM CDT) P athologist Signature Ethanol g/dL <0.01 0.01 g/dL MISYS Specimen Anatomical Collection Method Collection Time Receive d Time (Source) Location / / Volume Laterality 08/05/2006 4:55 PM 6 5:13 CDT PM CDT Soraida Campos MD LAB - BLOOD ORDERABLES Performing Organization Address City/State/ZIP Code Phon e Number MISYS (ABNORMAL) Hepatic panel (08/05/2006 4:55 PM CDT) Analysis Performed At Patho logist Time Signature AST 64 (H) 0 - 55 U/L MISYS Protein Total 9.0 (H) 6.0 - 8.2 MISYS g/dL Albumin 4.9 (H) 3.3 - 4.6 MISYS g/dL ALT 32 0 - 70 U/L MISYS Alkaline 87 40 - 150 MISYS Phosphatase U/L Bilirubin 0.0 0.0 - 0.3 MISYS Conjugated mg/dL Bilirubin Delta 0.0 0.0 - 0.4 MISYS mg/dL Bilirubin Total 0.8 0.2 - 1.3 MISYS mg/dL Specimen Anatomical Collection Method Collection Time Receive d Time (Source) Location / / Volume Laterality 08/05/2006 4:55 PM 6 6:42 CDT PM CDT Soraida Campos MD LAB - BLOOD ORDERABLES Performing Organization Address City/State/ZIP Code Phon e Number MISYS documented in this encounter Visit Diagnoses Not on filedocumented in this encounter
--- OUTSIDE RECORDS SUMMARY | 2022-08-25 14:28 | XMS_ITS | Encounter Summary ---
:1960 Author Organization [facility] Address [address] [place] [address] Care Team Providers Name Role Phone Unavailable Primary Care Provider Unavailable Encounter Details Date Type Department Care Team Description 08/06/2006 Historic Results [facility] Scott Michel ir, Hospitalists [address] [place], [place] [id number] [phone] Social History Tobacco Use Types Packs/Day Years Used Date Never Assessed Sex Assigned at Date Recorded Not on file documented as of this encounter Plan of Treatment Not on filedocumented as of this encounter Procedures Procedure Name Priority Date/Time Associated Comments Diagnosis SPUTUM CULTURE Routine 08/06/2006 12:30 Results f or this AEROBIC BACTERIAL PM CDT procedure are in the results section. GRAM STAIN Routine 08/06/2006 12:30 Results for this PM CDT procedure are i n the results section. HEMOGRAM DIFFERENTIAL Routine 08/06/2006 5:30 AM Results for this AND PLATELET CDT procedure are i n the results section. BASIC METABOLIC PANEL Routine 08/06/2006 5:30 AM Results for this CDT procedure are i n the results section. ROUTINE UA WITH STAT 08/06/2006 1:30 AM Result s for this MICROSCOPIC CDT procedure are i n the results section. documented in this encounter Results Gram stain (08/06/2006 12:30 PM CDT) [facility] Method Time Signature Specimen Sputum MISYS Description Gram Stain No organisms MISYS seen Comment: Many PMNs seen <10 Squamous epithelial cells/low power field Micro Report Status FINAL [id number] MISYS Specimen Anatomical Collection Method Collection Time Receive d Time (Source) Location / / Volume Laterality 08/06/2006 12:30 08/06/2006 PM CDT 12:40 PM CDT Scott Liriano MD LAB - MICRO GENERAL ORDERABL ES Performing Organization Address City/[facility] Code Phon e Number MISYS Sputum culture (08/06/2006 12:30 PM CDT) [facility] Method Time Signature Specimen Sputum MISYS Description Culture Micro Scant growth MISYS Normal edson Micro Report FINAL MISYS Status [id number] Specimen Anatomical Collection Method Collection Time Receive d Time (Source) Location / / Volume Laterality 08/06/2006 12:30 08/06/2006 PM CDT 12:40 PM CDT Scott Liriano MD LAB - MICRO GENERAL ORDERABL ES Performing Organization Address City/State/[facility] Code Phon e Number MISYS (ABNORMAL) Hemogram differential and platelet (08/06/2006 5:30 AM CDT) [facility] Method Time Signature MCV 99 78 - 100 MISYS fl MCH 33.3 (H) 26.5 - MISYS 33.0 pg MCHC 33.7 32.0 - MISYS 36.0 g/dL RDW 13.2 10.0 - MISYS 15.0 % WBC 13.1 (H) 4.0 - MISYS 11.0 10e9/L RBC Count 4.78 4.4 - 5.9 MISYS 10e12/L Hemoglobin 16.0 13.3 - MISYS 17.7 g/dL Hematocrit 47.4 40.0 - MISYS 53.0 % % Neutrophils 85 (H) 40 - 75 % MISYS % Lymphocytes 7 (L) 20 - 48 % MISYS % Monocytes 8 0 - 12 % MISYS % Eosinophils 0 0 - 6 % MISYS % Basophils 0 0 - 2 % MISYS Platelet Count 164 150 - 450 MISYS 10e9/L Absolute 11.1 (H) 1.6 - 8.3 MISYS Neutrophil 10e9/L Absolute 0.9 0.8 - 5.3 MISYS Lymphocytes 10e9/L Absolute 1.0 0.0 - 1.3 MISYS Monocytes 10e9/L Absolute 0.0 0.0 - 0.7 MISYS Eosinophils 10e9/L Absolute 0.0 0.0 - 0.2 MISYS Basophils 10e9/L Diff Method Automated MISYS Method Specimen (Source) Anatomical Collection Method Collection Time Re ceived Time Location / / Volume Laterality 08/06/2006 5:30 AM 6 CDT Scott Liriano MD LAB - BLOOD ORDERABLES Performing Organization Address City/[facility] Phon e Number MISYS (ABNORMAL) Basic metabolic panel (08/06/2006 5:30 AM CDT) P athologist Signature Sodium 135 133 - 144 MISYS mmol/L Potassium 4.6 3.4 - 5.3 MISYS mmol/L Chloride 101 94 - 109 MISYS mmol/L Carbon Dioxide 29 20 - 32 MISYS mmol/L Glucose 124 (H) 60 - 110 MISYS mg/dL Urea Nitrogen 8 5 - 24 MISYS mg/dL Creatinine 0.93 0.80 - MISYS 1.50 mg/dL GFR Estimate >90 >60 MISYS mL/min/1.7 m2 GFR Estimate If >90 >60 MISYS Black mL/min/1.7 m2 Calcium 8.2 (L) 8.5 - 10.4 MISYS mg/dL Anion Gap 5 (L) 6 - 17 MISYS mmol/L Specimen (Source) Anatomical Collection Method Collection Time Re ceived Time Location / / Volume Laterality 08/06/2006 5:30 AM 6 CDT Scott Liriano MD LAB - BLOOD ORDERABLES Performing Organization Address City/[facility] Phon e Number MISYS (ABNORMAL) Routine UA with microscopic (08/06/2006 1:30 AM CDT) Component Value Ref Test Analysis Performed At [facility] Method Time Signature Source Unspecified MISYS Urine Color Urine Yellow MISYS Appearance Urine Clear MISYS Glucose Urine Negative NEG MISYS mg/dL Bilirubin Urine Negative NEG MISYS Ketones Urine Negative NEG MISYS mg/dL Specific [place] 1.017 1.003 - MISYS Urine 1.035 Blood Urine Large (A) NEG MISYS pH Urine 6.0 5.0 - MISYS 7.0 pH Protein Albumin Negative NEG MISYS Urine mg/dL Urobilinogen Normal 0.0 - MISYS mg/dL 2.0 mg/dL Nitrite Urine Negative NEG MISYS Leukocyte Negative NEG MISYS Esterase Urine WBC Urine 1 0 - 2 MISYS /HPF RBC Urine >182 (H) 0 - 2 MISYS /HPF Comment: Reviewed, acceptable Squamous Epithelial /HPF Urine <1 0 - 1 /HPF MISYS Transitional Epi <1 0 - 1 /HPF MISYS Bacteria Urine Few (A) NEG /HPF MISYS Mucous Urine Present (A) NEG /LPF MISYS Specimen Anatomical Collection Method Collection Time Receive d Time (Source) Location / / Volume Laterality 08/06/2006 1:30 AM 6 5:12 CDT PM CDT Soraida Campos MD LAB - URINE ORDERABLES Performing Organization Address City/State/ZIP Code Phon e Number MISYS documented in this encounter Visit Diagnoses Not on filedocumented in this encounter
--- OUTSIDE RECORDS SUMMARY | 2022-08-25 14:28 | XMS_ITS | Encounter Summary ---
:1960 Author Organization [facility] Address [address] [facility] [place] [address] Care Team Providers Name Role Phone Unavailable Primary Care Provider Unavailable Encounter Details Date Type Department Care Team Description 08/05/2006 Results Only [facility] Soraida Denney MD Hospital Results EM[facility] [address] [place] [address] (Wo rk) Social History Tobacco Use Types Packs/Day Years Used Date Never Assessed Sex Assigned at Date Recorded Not on file documented as of this encounter Plan of Treatment Not on filedocumented as of this encounter Procedures Procedure Name Priority Date/Time Associated Comments Diagnosis HC CT THORAX W/O Routine 08/05/2006 8:00 PM Resul ts for this CONT CDT procedure are i n the results section. HC X-RAY LUMBAR Routine 08/05/2006 6:23 PM Result s for this SPINE 2-3 VIEWS CDT procedure ar e in the results section. HC X-RAY THORACIC Routine 08/05/2006 6:23 PM Resu lts for this SPINE 2 VIEWS CDT procedure are in the results section. HC RIBS UNILATERAL Routine 08/05/2006 6:23 PM Res ults for this >=3 VIEWS CDT procedure are i n the results section. documented in this encounter Results CT SCAN CHEST (08/05/2006 8:00 PM CDT) Specimen (Source) Anatomical Collection Method Collection Time Re ceived Time Location / / Volume Laterality 08/05/2006 8:00 PM CDT Impressions RADIOLOGY RESULTS - 08/06/2006 4:[address] CHEST AND ABDOMEN WITH IV CONTRAST MA LIZBETHIAL ? 08/05/2006 ?? HISTORY: ??Chest pain with trauma to the left side. ?? FINDINGS: ? 1. ??Fractures of the left 4th through 8 th ribs. 2. ??No pneumothorax. 3. ??6mm thin wall cavitary lesion of th e left upper lobe possibly related to an acute or chronic infection . ??There is some patchy infiltrate in the right superior segment of the right lower lobe as well. ??Clinical correlation follow-up i n one month recommended. ?? There is an area of consolidation left l zuleima base possibly a lung contusion related to the patient's traum a. 4. ??There is some emphysematous changes in the lung with some blebs abutting the mediastinum. ??Some of thes e small collections of gas abutting the left side of the mediastinu m near the left main pulmonary artery are difficult to exclud e from a pneumomediastinum but I believe are most likely all blebs related to the lung. ??If symptoms persist follow-up recommended. 5. ??The blebs adjacent to the mediastin um as well as a tiny cavitary lesion left upper lobe are not mentioned and the infiltrate in the right lung base were not mentioned in th e preliminary report and corrected report sent to the ER. ?? Soraida Campos MD SPECIAL IMAGING STUDIES Performing Organization Address City/State/ZIP Code Phon e Number RADIOLOGY RESULTS X-RAY DORSAL SPINE 2 VW (08/05/2006 6:23 PM CDT) Specimen (Source) Anatomical Collection Method Collection Time Re ceived Time Location / / Volume Laterality 08/05/2006 6:23 PM CDT Impressions RADIOLOGY RESULTS - 08/06/2006 3:37 PM C DT 2 VIEW THORACIC SPINE - 08/05/2006 ?? INDICATION FOR EXAMINATION: Trauma with fall. ?? FINDINGS: Moderate osteophytic spurring throughout the thoracic spine. No evidence of compression fractu re. Incidental demonstration of retrocardiac infiltrate left lower lo be. Soraida Campos MD GENERAL IMAGING Performing Organization Address City/State/ZIP Code Phon e Number RADIOLOGY RESULTS X-RAY LUMBAR SPINE 2 VW (08/05/2006 6:23 PM CDT) Specimen (Source) Anatomical Collection Method Collection Time Re ceived Time Location / / Volume Laterality 08/05/2006 6:23 PM CDT Impressions RADIOLOGY RESULTS - 08/06/2006 3:37 PM C DT 3 VIEW LUMBAR SPINE - 08/05/2006 ?? INDICATION FOR EXAMINATION: Trauma with fall. ?? FINDINGS: Mild scoliotic curvature of th e lumbar spine convex right. Mild osteophytic spurring throughout the lumbar spine. No evidence of fracture or other significant osseous ab normality. Soraida Campos MD GENERAL IMAGING Performing Organization Address City/State/[facility] Phon e Number RADIOLOGY RESULTS X-RAY RIBS, CHEST 3+ VW (08/05/2006 6:23 PM CDT) Specimen (Source) Anatomical Collection Method Collection Time Re ceived Time Location / / Volume Laterality 08/05/2006 6:23 PM CDT Impressions RADIOLOGY RESULTS - 08/06/2006 3:36 PM C DT 3 VIEWS LEFT RIB DETAIL - 08/05/2006 ?? INDICATION FOR EXAMINATION: Pain after f all. ?? FINDINGS: There is demonstration of disp laced fractures of fifth, sixth, seventh and eighth ribs posterola terally. No accompanying pneumothorax. There is fluid density in posterior costophrenic angle in keeping with hemothorax. Pulmonary va sculature and heart size are within normal limits. ?? CONCLUSION: ?? Multiple posterior lateral left rib frac tures with associated small left pneumothorax. Soraida Campos MD GENERAL IMAGING Performing Organization Address City/State/[facility] Code Phon e Number RADIOLOGY RESULTS documented in this encounter Visit Diagnoses Not on filedocumented in this encounter
--- OUTSIDE RECORDS SUMMARY | 2022-08-25 14:28 | XMS_ITS | Encounter Summary ---
:1960 Author Organization [facility] Address [address] [facility] [place] [address] Care Team Providers Name Role Phone Unavailable Primary Care Provider Unavailable Encounter Details Date Type Department Care Team Description 08/08/2006 Historic Notes INTERFACED REPORT Interface, Transcript on, Social History Tobacco Use Types Packs/Day Years Used Date Never Assessed Sex Assigned at Date Recorded Not on file documented as of this encounter Progress Notes Interface, Director Information - 02/06/2011 10:52 PM CDT Pt. amb. all three halls on RA., O2 sats decreased to 86%. Recovered after 1 min. with 4 LPM NC 92%. [Signature] Author:Cece Bruno (RN) [Signed 13:18] Interface, Director Information - 02/06/2011 10:52 PM CDT SH - I visited patient to provide support. Pt reported that he had this unexpected accident/illness. Said that he wondered if this was a wake-up call for him to change his lifestyle, re: smoking. Pt said his Mu-Is[employer] faby is important to him and that he had received communion on 08/07. Pt also reported that he has a close-knit, supportive family. No follow up needed. [Signature] Author:Maria Ines Franco (Valve Grinder) [Signed 15:15] documented in this encounter Plan of Treatment Not on filedocumented as of this encounter Visit Diagnoses Not on filedocumented in this encounter
--- OUTSIDE RECORDS SUMMARY | 2022-08-25 14:28 | XMS_ITS | Encounter Summary ---
:1960 Author Organization [facility] Address [address] [facility] [place] [address] Care Team Providers Name Role Phone Unavailable Primary Care Provider Unavailable Encounter Details Date Type Department Care Team Description 08/08/2006 Historic Results [facility] Anastacia Short MD Hospitalists [address] [facility] [address] [place] [address] [place], [place] [phone] (Wo rk) [id number] [phone] Social History Tobacco Use Types Packs/Day Years Used Date Never Assessed Sex Assigned at Date Recorded Not on file documented as of this encounter Plan of Treatment Not on filedocumented as of this encounter Procedures Procedure Name Priority Date/Time Associated Diagnosis Comme nts HEMOGRAM AND Routine 08/08/2006 5:49 AM Results f or this PLATELET CDT procedure are i n the results section. documented in this encounter Results (ABNORMAL) Hemogram and platelet (08/08/2006 5:49 AM CDT) Analysis Performed At Patho logist Time Signature MCV 99 78 - 100 MISYS fl MCH 32.9 26.5 - MISYS 33.0 pg MCHC 33.1 32.0 - MISYS 36.0 g/dL RDW 13.1 10.0 - MISYS 15.0 % WBC 10.9 4.0 - 11.0 MISYS 10e9/L RBC Count 4.28 (L) 4.4 - 5.9 MISYS 10e12/L Hemoglobin 14.1 13.3 - MISYS 17.7 g/dL Hematocrit 42.5 40.0 - MISYS 53.0 % Platelet Count 145 (L) 150 - 450 MISYS 10e9/L Specimen Anatomical Collection Method Collection Time Receive d Time (Source) Location / / Volume Laterality 08/08/2006 5:49 AM 6 8:31 CDT AM CDT Star Short MD LAB - BLOOD ORDERABLES Performing Organization Address City/State/ZIP Code Phon e Number MISYS documented in this encounter Visit Diagnoses Not on filedocumented in this encounter
--- OUTSIDE RECORDS SUMMARY | 2022-08-25 14:28 | XMS_ITS | Encounter Summary ---
:1960 Author Organization [facility] Address [address] [facility] [place] [address] Care Team Providers Name Role Phone Unavailable Primary Care Provider Unavailable Encounter Details Date Type Department Care Team Description 08/11/2006 Historic Notes INTERFACED REPORT Interface, Transcript on, Social History Tobacco Use Types Packs/Day Years Used Date Never Assessed Sex Assigned at Date Recorded Not on file documented as of this encounter Progress Notes Interface, Materials Specialist - 02/06/2011 10:49 PM CDT Pt. dc'd to home. O2 sat on RA at rest=90-92%. Pt. not going home with home O2. Pt. instructed to continue to use IS every 1-2 hours. Pt. verbalized understanding of all meds and follow up care. Dc meds filled here and sent with pt. Pt. instructed to monitor BP at home with personal BP machine re: pt. started on 2 new BP meds. [Signature] Author:BOB NEWBERRY (RN) [Signed 15:34] documented in this encounter Plan of Treatment Not on filedocumented as of this encounter Visit Diagnoses Not on filedocumented in this encounter
--- OUTSIDE RECORDS SUMMARY | 2022-08-25 14:28 | XMS_ITS | Encounter Summary ---
:1960 Author Organization [place] Address [address] [facility] [place] [address] Care Team Providers Name Role Phone Alana Martinez Primary Care Provider Reason for Visit Reason Comments Respiratory Distress difficulty breathing for 2 w eeks, recently on antibiotics and prednisone, recent COPD diag noses. 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 Auth/Cert - Closed Specialty Diagnoses / Procedures Referred By Contact Refer red To Contact Diagnoses Hypoxia COPD exacerbation (H) [facility] [address] [place], [place] [phone] Phone: Fax: Referral ID Status Reason Start Date Expiration Date Visits Requ ested Visits Authorized [id number] Closed 02/21/2012 08/19/2012 1 1 Encounter Details Date Type Department Care Team Description 02/20/2012 - [facility] deanna Lanza MD [facility] [address] [place] [address] COPD exacerbation (H); 02/23/2012 Encounter [facility] Zion Mijares MD [address] [place], [place] [phone] Hypoxia; Surgical Holly Morgan MD [address] [place], [place] [phone] Nicotine dependence [address] [place] [id number] Social History Tobacco Use Types Packs/Day Years Used Date Current Every Day Smoker 1 Tobacco Cessation: Ready to Quit: Yes Alcohol Use Standard Drinks/Week Comments Yes 1.7 (1 standard drink = 0.6 oz pure alco hol) Sex Assigned at Date Recorded Not on file documented as of this encounter Last Filed Vital Signs Vital Sign Reading Time Taken Comments Blood Pressure 126/79 02/23/2012 7:00 AM CDT Pulse - - Temperature 36.1 ??C (97 ??F) 02/23/2012 7:00 AM CDT Respiratory Rate 18 02/23/2012 7:00 AM CDT Oxygen Saturation 93% 02/23/2012 7:00 AM CDT Inhaled Oxygen Concentration - - Weight 55.2 kg (121 lb 9.6 oz) 02/20/2012 11:00 PM CDT Height 167.6 cm (5' 6) 02/20/2012 11:00 PM CDT Body Mass Index 19.63 02/20/2012 11:00 PM CDT documented in this encounter Discharge Summaries Jude Mazariegos MD - 02/23/2012 12:13 PM CDT PRIMARY CARE PHYSICIAN: Martinez Warner MD PRINCIPAL DISCHARGE DIAGNOSES: 1. Acute exacerbation of chronic obstructive pulmonary disease. 2. Acute on chronic bronchitis. 3. Hypertension. 4. Nicotine dependence. 5. Mild hyperglycemia secondary to steroids. CONSULTATIONS: None. COMPLICATIONS: None. PROCEDURES PERFORMED: Chest x-ray which showed heart and lungs are negative. The patient had multiple old left rib fractures which have healed since the prior exam. ALLERGIES: No known drug allergies. PENDING LABS: None. BRIEF HISTORY OF THIS ADMISSION: Mr. Steve Gutierrez is a 50-year-old man with history of chronic obstructive pulmonary disease, chronic smoker, who presented to the emergency room at [facility] with complaint of worsening shortness of breath. For additional information, please refer to dictated history and physical examination by Dr. Mijares on 02/20/2012 for additional details. The patient was seen in his primary care clinic earlier and he was started with doxycycline and prednisone 20mg daily. He still had shortness of breath and cough. PHYSICAL EXAMINATION: Unchanged from progress note of yesterday. HOSPITAL COURSE: 1. Acute chronic obstructive pulmonary disease exacerbation with possible acute on chronic bronchitis. The patient was treated with IV Solu-Medrol, Advair, Duonebs, Spiriva and also patient was on Bactrim. Patient was markedly improved with oxygen. Oxygen was removed yesterday without any hypoxia, although he had hypoxia on admission. He is clinically better. Patient was advised on smoking cessation.The patient will be continued on the prednisone taper. I will add Advair, resume his Duonebs and Combivent inhalers and then continue his outpatient doxycycline for the remaining few days. Follow up with his primary care doctor. He needs pulmonary function tests and needs [facility]. And for smoking cessation, patient will be added a nicotine patch. 2. History of hypertension. Blood pressure is stable. The patient was continued with Norvasc, atenolol and lisinopril. 3. Nicotine dependence. The patient was started on nicotine patch. He was using nicotine again, but he said that was not effective. The patient needs a smoking cessation program. 4. Mild hyperglycemia related to steroid treatment. Stable. DISCHARGE CONDITION: Stable and improved. ACTIVITY: As tolerated. DIET: Cardiac. FOLLOWUP: With his primary care doctor, Dr. Martinez Warner in 1 week with labs. Follow up with [facility] for pulmonary function tests. DISCHARGE MEDICATIONS: 1. Advair 200/50 one puff b.i.d. 2. Nicotine patches 14 mg per 24 hours 1 daily. 3. Prednisone 60 mg p.o. x3 days, then 40 mg p.o. x3 days, then 20 mg p.o. x3 days, then 10 mg p.o. x3 days, then stop. 4. Lisinopril 20 mg 1 daily. 5. Norvasc 10 mg q. day. 6. Tylenol 650 mg p.o. q. day. 7. Doxycycline 100 mg p.o. twice daily for the remainder of his tablets. 8. Combivent 2 puffs every 4 hours. JUDE MAZARIEGOS MD MT: PP Name: STEVE GUTIERREZ MRN: [id number] Account: [id number] : 1960 Admit Date: [id number] Discharge Date: 02/23/2012 Document: [id number] cc: Martinez Warner MD documented in this encounter Medications at Time of Discharge Medication Sig Dispensed Refills Start Date End Date doxycycline (VIBRA-TABS) Take 100 mg by mouth 0 0 02/16/2012 02/25/2012 100 MG tablet 2 times daily. Filled #20 tabs 02/16/12 for 10 day course albuterol-ipratropium Inhale 2 puffs into 0 04/28/2015 (COMBIVENT) 18-103 the lungs 4 times MCG/ACT inhaler daily. amLODIPine (NORVASC) 10 Take 10 mg by mouth 0 11/09/2015 MG tablet At Bedtime atenolol (TENORMIN) 50 MG Take 25 mg by mouth 0 11/06/2015 tablet daily fluticasone-salmeterol Inhale 1 puff into 1 Inhaler 2 02/2205/03/2015 (ADVAIR) 250-50 MCG/DOSE the lungs 2 times diskus daily. inhalerIndications: COPD exacerbation (H) lisinopril Take 20 mg by mouth 0 11/09 (PRINIVIL,ZESTRIL) 20 MG At Bedtime tablet nicotine (NICODERM CQ) 14 Place 1 patch onto 28 patch 1 04/28/2015 MG/24HR patch 2h the skin daily. hrIndications: Nicotine dependence predniSONE (DELTASONE) 20 Take by mouth. 3 tabs (60mg) daily x 3 days, then 20 tablet 0 02/23/2012 04/28/2015 MG tabletIndications: 2 tabs (40mg) daily x 3 days, COPD exacerbation (H) 1 tab (20mg) daily x 3 days, 1/2 tab (10mg) x 3 days documented as of this encounter Progress Notes Maria Ines Franco - 02/23/2012 11:04 AM CDT 02/23/12 1103 Type of Visit Type of Visit Initial Clinical Encounter Type Visited With Patient Jain Encounters Jain Needs Other (describe) (supportive listening) [facility] Progress Note [facility] MS5 DATA: I visited to offer support to pt per length of stay. Pt was sitting up in a chair and welcomed me in. INTERVENTION: I provided supportive listening as pt talked about his recent diagnosis of COPD. He talked about some of the changes he is needing to make in his life, the most challenging being that of quitting smoking. Pt has cut down on his tobacco use, but knows he needs to make more permanent changes. Pt has three children in their upper teens and stated that he wants to be in as good health as possible to be around for them. Pt had just received communion and expressed appreciation for that. ASSESSMENT: Pt's Faith faby is important to him and helps to sustain him. He also has good support from his and family. Pt acknowledges that he needs to slow down and take his time in going back to work, as well as avoiding getting ill to keep his COPD under control. PLAN: No follow up anticipated as pt expressed no needs at this time. Rev. Maria Ines Franco M.Div. Staff [facility] Pager [phone] Jude Mazariegos MD - 02/22/2012 8:29 AM CDT [facility] Hospitalist Progress Note Name: Steve Gutierrez Date of Admission: 02/20/2012 Interval History: Feels weak and tired, no cp or fever, still has dyspnea on exertion. No abd pain, appetite is good. Smoker for 28 yrs. Medications: I have reviewed this patient's current medications Current facility-administered medications Medication ??? nicotine Patch in Place ??? nicotine patch REMOVAL ??? nicotine (NICODERM CQ) 14 MG/24HR 1 patch ??? fluticasone-salmeterol (ADVAIR) 250-50 MCG/DOSE diskus inhaler 1 puff ??? zolpidem (AMBIEN) tablet 5 mg ??? ipratropium - albuterol 0.5 mg/2.5 mg/3 mL (DUONEB) nebulizer solution 3 mL ??? naloxone (NARCAN) injection 0.1-0.4 mg ??? albuterol nebulizer solution (UD) 2.5 mg ??? albuterol nebulizer solution (UD) 2.5 mg ??? sulfamethoxazole-trimethoprim (BACTRIM DS) 800-160 MG per tablet 1 tablet ??? methylprednisoLONE sodium succinate (Solu-MEDROL) injection 60 mg ??? HYDROmorphone (DILAUDID) injection 0.2-0.4 mg ??? magnesium hydroxide (MILK OF MAGNESIA) suspension 30 mL ??? ondansetron (ZOFRAN) tablet 4 mg ??? ondansetron (ZOFRAN-ODT) disintegrating tablet 4 mg ??? ondansetron (ZOFRAN) injection 4 mg ??? enoxaparin (LOVENOX) injection 40 mg ??? amLODIPine (NORVASC) tablet 10 mg ??? atenolol (TENORMIN) tablet 50 mg ??? lisinopril (PRINIVIL,ZESTRIL) tablet 20 mg ??? nicotine polacrilex (NICORETTE) gum 4 mg ??? DISCONTD: 0.9 % sodium chloride IV solution Physical Exam: Blood pressure 112/71, temperature 96.6 ??F (35.9 ??C), temperature source Oral, resp. rate 18, height 1.676 m (5' 6), weight 55.157 kg (121 lb 9.6 oz), SpO2 91.00%. I/O last 3 completed shifts: In: 2810 [P.O.:1050; I.V.:1760] Out: - ] Exam: GENERAL: No acute distress. SKIN: Dry and warm. There is no rash. HEENT: Head without trauma. Pupils round, reactive. There is no oral thrush. NECK: Supple. There is no adenopathy, no thyromegaly. No JVD LUNGS: Diffuse decrease breath sounds, few rhonchi, no rales.. HEART: Regular rate and rhythm. No murmurs, gallops or rubs auscultated. ABDOMEN: Soft, bowel sounds positive. There is no tenderness or guarding. EXTREMITIES: No edema. NEUROLOGIC: Alert and oriented x3. There is no focal deficit appreciated. Data: Recent labs, imaging, and other studies were reviewed. Imaging/Telemetry: Reviewed. Radiology results from 02/20/12 -X-RAY CHEST 2 VWS IMAGECAST RESULT Value: CHEST TWO VIEWS Feb 20, 2012 7:00:00 PM HISTORY: Shortness of breath. COMPARISON: 08/05/2006. FINDINGS: Multiple old left rib fractures which have healed since the prior exam. Heart and lungs remain negative. Lab 02/21/12 0650 02/20/12 2218 02/20/12 1820 WBC 8.4 -- 10.1 HGB 13.7 -- 15.2 HCT 40.8 -- 44.0 MCV 98 -- 98 PLT 253 273 269 Lab 02/21/12 0650 02/20/12 1820 NA 137 135 POTASSIUM 4.5 4.5 CHLORIDE 100 97 CO2 27 27 ANIONGAP 10 11 GLC 149* 108* BUN 13 19 CR 0.64* 0.61* GFRESTIMATED >90 >90 GFRESTBLACK >90 >90 TRAY 8.6 9.5 MAG -- -- PHOS -- -- PROTTOTAL -- -- ALBUMIN -- -- BILITOTAL -- -- ALKPHOS -- -- AST -- -- ALT -- -- Assessment and Plan: Steve Gutierrez is a 52 year old male who presented for worsening dyspnea. 1. Acute COPD exacerbation: continue IV Solumedrol, Advair, nebs and add Spiriva. Smoking cessation is needed. Follow up pulmonary clinic for PFT's. 2. Hypertension, continue Norvasc, atenolol and lisinopril. His BP norm al. 3. Nicotine dependency: start Nicotine patch, smoking cessation education and advice given. 4. Mild hyperglycemia due to steroid treatment. Disp: d/c IV fluid, wean off O2, plan d/c home tomorrow with prednisone taper. Bryson Kim MD - 02/21/2012 9:46 AM CDT 02/21/2012 [facility] Hospitalist Progress Note Name: Steve Gutierrez Date of Admission: 02/20/2012 Interval History: Briefly, 52 y/o WM with hx of COPD admitted with COPD exacerbation. No fevers/chills overnight. Breathing is better but not back to baseline. Medications: I have reviewed this patient's current medications. Physical Exam: Blood pressure 110/73, temperature 95.8 ??F (35.4 ??C), temperature source Oral, resp. rate 20, height 1.676 m (5' 6), weight 55.157 kg (121 lb 9.6 oz), SpO2 95.00%. Intake/Output Summary (Last 24 hours) at 02/21/12 0948 Last data filed at 02/21/12 0600 Gross per 24 hour Intake 604 ml Output 0 ml Net 604 ml Exam: Gen - AAO x 3 in NAD. Neck - supple. Lungs - diminished air entry with diffuse scattered wheezing. Heart- RR,S1+S2 nml, no m/g/r. Abd - soft, NT, ND, + BS. Ext - no edema. Data: Recent labs, imaging, and other studies were reviewed. Lab 02/21/12 0650 02/20/12 2218 02/20/12 1820 WBC 8.4 -- 10.1 HGB 13.7 -- 15.2 HCT 40.8 -- 44.0 MCV 98 -- 98 PLT 253 273 269 Lab 02/21/12 0650 02/20/12 1820 NA 137 135 POTASSIUM 4.5 4.5 CHLORIDE 100 97 CO2 27 27 ANIONGAP 10 11 GLC 149* 108* BUN 13 19 CR 0.64* 0.61* GFRESTIMATED >90 >90 GFRESTBLACK >90 >90 TRAY 8.6 9.5 MAG -- -- PHOS -- -- PROTTOTAL -- -- ALBUMIN -- -- BILITOTAL -- -- ALKPHOS -- -- AST -- -- ALT -- -- Lab 02/20/12 1910 DD <0.2 CHEST TWO VIEWS Feb 20, 2012 7:00:00 PM HISTORY: Shortness of breath. COMPARISON: 08/05/2006. FINDINGS: Multiple old left rib fractures which have healed since the prior exam. Heart and lungs remain negative. Assessment and Plan: A) COPD Exacerbation. Continue IV solumedrol, duonebs and bactrim Add advair. B) HTN. BP stable on lisinopril, atenolol and amlodipine. On DVT prophylaxis. Dispo -likely home 02/22/12 documented in this encounter H&P Notes Zion Mijares MD - 02/20/2012 10:20 PM CDT [facility] Hospitalist Admission Note Name: Steve Gutierrez Date of : 1960 Age: [age] year old Date of admission: 02/20/2012 Primary care provider: MARTINEZ WARNER Chief Complaint: Shortness of breath History is obtained from the patient History of Present Illness: This patient is a 52 year old male with a significant past medical history of COPD and hypertension who presents with the following condition requiring a hospital admission: Dyspnea Patient complains of shortness of breath at rest, with any activity. Symptoms include dry cough and dyspnea on exertion. Symptoms began 2 weeks ago, gradually worsening since that time. Patient denies chest pain. Associated symptoms include chills and nonproductive cough. Patient does not have had recent travel. Weight has been stable. Appetite has been varying. Symptoms are exacerbated by unknown. Symptoms are alleviated by nothing. Patient was referred by his PCP for failure to improve after several days treatment with doxycyclineand prednisone.He continued to have respiratory distress and shortness of breath.He saw his PCP for the third time before he was referred here. He is chronic smoker and is currently trying to cut smoking. Past Medical History: COPD-clinical diagnosis HTN History of alcoholism Pneumonia Past Surgical History: None Social History: Current smoker 8-10 cigarette daily Denies Alcohol abuse Family History: Father had lung cancer and sister had breast cancer Allergies: No Known Allergies Medications: Prescriptions prior to admission Medication Sig Dispense Refill ??? lisinopril (PRINIVIL,ZESTRIL) 20 MG tablet Take 20 mg by mouth daily. ??? amLODIPine (NORVASC) 10 MG tablet Take 10 mg by mouth daily. ??? atenolol (TENORMIN) 50 MG tablet Take 50 mg by mouth daily. ??? doxycycline (VIBRA-TABS) 100 MG tablet Take 100 mg by mouth 2 times daily. Filled #20 tabs 02/16/12 for 10 day course ??? predniSONE (DELTASONE) 20 MG tablet Take 20 mg by mouth 2 times daily. Filled #10 tabs 02/15/12 for 5 day course ??? nicotine polacrilex (NICORETTE) [address] 4 mg inside cheek as needed. ??? albuterol-ipratropium (COMBIVENT) 18-103 MCG/ACT inhaler Inhale 2 puffs into the lungs 4 times daily. Review of Systems: A Comprehensive greater than 10 system review of systems was carried out. Pertinent positives and negatives are noted above. Otherwise negative for contributory information. Physical Exam: Vitals were reviewed Blood pressure 115/75, temperature 98.7 ??F (37.1 ??C), temperature source Oral, resp. rate 24, XuW178.00%. Constitutional: awake, fatigued, alert, cooperative, mild distress and appears older than stated age Eyes: lids and lashes normal, pupils equal, round and reactive to light, extra-ocular muscles intact and sclera clear ENT: normocepalic, without obvious abnormality, atramatic, sinuses nontender on palpation Neck: supple, symmetrical, trachea midline, skin normal, no stridor and thyroid not enlarged, symmetric, no tenderness Hematologic / Lymphatic: no cervical lymphadenopathy and no supraclavicular lymphadenopathy Back: symmetric, no curvature and spinous processes are non-tender on palpation Lungs: tachypneic, Moderate respiratory distress, decreased air exchange, no retractions and wheeze diffuse Cardiovascular: normal apical pulses and regular rate and rhythm no edema Abdomen: normal bowel sounds, soft, non-distended, non-tender and no masses palpated Musculoskeletal: no lower extremity pitting edema present there is no redness, warmth, or swelling of the joints full range of motion noted motor strength is 5 out of 5 all extremities bilaterally Neurologic: Mental Status Exam: Level of Alertness: awake Cranial Nerves: cranial nerves II-XII are grossly intact Motor Exam: moves all extremities well and symmetrically Neuropsychiatric: General: normal, calm and normal eye contact Level of consciousness: alert / normal Affect: normal Orientation: oriented to self, place, time and situation Skin: no bruising or bleeding, normal skin color, texture, turgor and no lesions Data: All laboratory data reviewed All laboratory and imaging data in the past 24 hours reviewed Results for orders placed during the hospital encounter of 02/20/12 X-RAY CHEST 2 VWS Component Value Range ??? IMAGECAST RESULT Value: CHEST TWO VIEWS Feb 20, 2012 7:00:00 PM HISTORY: Shortness of breath. COMPARISON: 08/05/2006. FINDINGS: Multiple old left rib fractures which have healed since the prior exam. Heart and lungs remain negative. CBC WITH PLATELETS DIFFERENTIAL Component Value Range ??? WBC 10.1 4.0 - 11.0 (10e9/L) ??? RBC Count 4.50 4.4 - 5.9 (10e12/L) ??? Hemoglobin 15.2 13.3 - 17.7 (g/dL) ??? Hematocrit 44.0 40.0 - 53.0 (%) ??? MCV 98 78 - 100 (fl) ??? MCH 33.8 (*) 26.5 - 33.0 (pg) ??? MCHC 34.5 31.5 - 36.5 (g/dL) ??? RDW 12.7 10.0 - 15.0 (%) ??? Platelet Count 269 150 - 450 (10e9/L) ??? Diff Method Automated Method ??? % Neutrophils 75.3 (*) 40 - 75 (%) ??? % Lymphocytes 13.4 (*) 20 - 48 (%) ??? % Monocytes 10.7 0 - 12 (%) ??? % Eosinophils 0.1 0 - 6 (%) ??? % Basophils 0.1 0 - 2 (%) ??? % Immature Granulocytes 0.4 0 - 0.4 (%) ??? Absolute Neutrophil 7.6 1.6 - 8.3 (10e9/L) ??? Absolute Lymphocytes 1.4 0.8 - 5.3 (10e9/L) ??? Absolute Monoctyes 1.1 0.0 - 1.3 (10e9/L) ??? Absolute Eosinophils 0.0 0.0 - 0.7 (10e9/L) ??? Absolute Basophils 0.0 0.0 - 0.2 (10e9/L) ??? Abs Immature Granulocytes 0.0 0 - 0.03 (10e9/L) BASIC METABOLIC PANEL Component Value Range ??? Sodium 135 133 - 144 (mmol/L) ??? Potassium 4.5 3.4 - 5.3 (mmol/L) ??? Chloride 97 94 - 109 (mmol/L) ??? Carbon Dioxide 27 20 - 32 (mmol/L) ??? Anion Gap 11 6 - 17 (mmol/L) ??? Glucose 108 (*) 60 - 99 (mg/dL) ??? Urea Nitrogen 19 7 - 30 (mg/dL) ??? Creatinine 0.61 (*) 0.66 - 1.25 (mg/dL) ? ? GFR Estimate >90 > >60 (mL/min/1.7m2) ? ? GFR Estimate If Black >90 > >60 (mL/min/1.7m2) ??? Calcium 9.5 8.5 - 10.4 (mg/dL) D DIMER QUANTITATIVE Component Value Range ? ? D Dimer <0.2 0.0 - 0.50 (ug/ml FEU) All cardiac studies reviewed by me. All imaging studies reviewed by me. EKG: NSR Assessment and Recommendation: Assessment: This patient is a 52 year old male with a significant past medical history of COPD and hypertension who presents with progressive shortness of breath and hypoxia Referred from his PCP office.He was treated with doxycycline and prednisone as outpatient with no significant improvement.He is current smoker and has clinical diagnosis of COPD. 1.COPD exacerbation -likely from URI 2 weeks ago 2.Hypoxia -from COPD 3.HTN -well controlled 4.Smoking-current -intension to quit Recommendations: Admit to hospitalist Admit to inpatient Oxygen continued Respiratory therapy Additional orders: Intensive Nebs,IV steroids and Bactrim.counseled to quit smoking,Dr Paige`s number given to schedule LFT Continue home HTN meds prophylaxis against venous thromboembolism Cardiac diet Regular activity Discussed treatment plan with the patient anticipate discharge to home Rounding physician in AM to evaluate for discharge planning as patient wants to discharge soon. documented in this encounter Consult Notes Marissa Mayer RD, LD - 02/21/2012 10:16 AM CDTAssociated Order(s): NUTRITION SERVICES ADULT IP CONSULT NUTRITION ASSESSMENT REASON FOR ASSESSMENT: Screen (decreased po intake) ANTHROPOMETRICS: Ht: 66 Wt: 55.2 kg Wt Change: 2.3 kg wt loss or 4% in the last 1-2 weeks BMI: 19.7 kg/m^2 IBW: 64.5 kg Dosing Wt: 55.2 kg NUTRITION HISTORY: Per the pt, he has had a decreased appetite since his cold symptoms started about 1-2 weeks ago. He has lost about 2.3 kg during this time, but he states his wt has always been around 58.2 kg his entire life. The pt states he is usually a good eater as well. 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 There may be some concern for ETOH as it is reported per the profile he drinks at least 2 beers per week [facility] CURRENT NUTRITION ORDERS: Cardiac, fair intake LABS: Noted MEDS: Noted PROCEDURES WITH NUTRITIONAL IMPLICATIONS: N/A PHYSICAL FINDINGS: Wt loss Decreased po intake prior to admission No pain No BM Perez= 3 ESTIMATED NEEDS: Energy Needs: 4917-6344 kcal (30-35 kcal/kg)- wt gain/repletion Protein needs: 66-83 gms protein (1.2-1.5 gm/kg)- increased for COPD Fluid needs: 0161-5763 mL fluid (30-35 mL/kg)- basic fluid needs NUTRITION DIAGNOSIS: Unintentional wt loss R/t inadequate oral intake AEB 2.3 kg wt loss in the last 1-2 weeks. INTERVENTIONS: Provided diet education materials on increasing kcal/protein and anorexia. Expect good compliance. Name and number provided. Encouraged smaller, frequent meals. Supplements/Snacks prn. Changed diet to a regular diet due to wt loss and decreased oral intake. GOALS: PO to be greater than 75% of meals. No further wt loss beyond 55.2 kg. FOLLOW UP/MONITORING: Monitor oral intake, wt trends and stooling. RECOMMENDATIONS: No RD recs at this time. Marissa Mayer RD, LD Clinical Dietitian documented in this encounter ED Notes Hattie Marquez RN - 02/20/2012 7:56 PM CDT Peak flow 125, preneb Hattie Marquez RN - 02/20/2012 7:40 PM CDT O2 at 3L via NC Chaparro Teresa RN - 02/20/2012 6:34 PM CDT Pre neb Peak flow 110 Hattie Marquez RN - 02/20/2012 5:59 PM CDT 4L O2 placed via NC Hattie Marquez RN - 02/20/2012 5:59 PM CDT Manjit Lewis MD - 02/20/2012 5:52 PM CDT History Chief Complaint: Respiratory Distress HPI Steve Gutierrez is a 52 year old male with a history of COPD who presents with respiratory distress.The patient states he developed a cough and cold symptoms about two weeks ago with symptoms including congestion and a runny nose. He saw his primary care provider on February 05 and was diagnosed with COPD at that time. He was also started on Doxycyline as well as Prednisone and initially began feeling better. However, he recently began having progressively worsening shortness of breath and difficulty breathing so he went to his primary care doctor's office today and [facility]. Here in the ED, the patient reports his co ugh has been productive of yellow sputum, but he has not had any fevers or chills. He notes he is still taking both the Prednisone and Doxycycline. He has not had any chest pain, abdominal pain, nausea, vomiting, or diarrhea. He has had some mild congestion, but no sore throat and he has no other complaints at this time. Allergies: No Known Drug Allergies Medications: Prednisone Atenolol Doxycycline Lisinopril Amlodipine Nicorette Combivent Past Medical History: COPD (chronic obstructive pulmonary disease) Hypertension Past Surgical History: History reviewed. No pertinent past surgical history. Family History: History reviewed. No pertinent family history. Marital Status: Social History: The patient has a long history of smoking. Review of Systems Constitutional: Negative for fever, chills and fatigue. HENT: Positive for congestion. Negative for sore throat. Respiratory: Positive for cough and shortness of breath. Cardiovascular: Negative for chest pain. Gastrointestinal: Negative for nausea, vomiting, abdominal pain and diarrhea. All other systems reviewed and are negative. Physical Exam First Vitals: BP: 115/82 mmHg Heart Rate: 87 Temp: 98.7 ??F (37.1 ??C) Resp: 24 SpO2: 89 % Physical Exam Constitutional: He is oriented to person, place, and time. HENT: Head: Normocephalic and atraumatic. Nose: Nose normal. Mouth/Throat: Mucous membranes are normal. Eyes: EOM are normal. Pupils are equal, round, and reactive to light. Cardiovascular: Normal rate, regular rhythm, S1 normal and S2 normal. Exam reveals no gallop and no friction rub. No murmur heard. Pulmonary/Chest: Effort normal. Decreased breath sounds bilaterally and end expiratory wheeze. Abdominal: Soft. He exhibits no distension. No tenderness. Musculoskeletal: Normal range of motion. Neurological: He is alert and oriented to person, place, and time. He has normal strength. Skin: Skin is warm and dry. No rash noted. Emergency Department Course ECG: Performed on 02/20/2012 at 1828. Read at 1832. Rate 77 bpm. [place] interval 184. QRS duration 76. QT/QTc 364/411. P-R-T axes 72 79 76. Normal sinus rhythm. Normal ECG. Imaging: CXR: Emphysema. Otherwise negative. Laboratory: CBC: Neutrophils 75.3 high, Lymphocytes 13.4 low, o/w WNL (WBC 10.1, HGB 15.2, Platelets 269) BMP: Glucose 108 high, Creatinine 0.61 low, o/w WNL D Dimer: <0.2 Interventions: Prednisone 60 mg PO Duoneb 3 mL Neb x2 Emergency Department Course: I performed a thorough exam of the patient. IV inserted and blood drawn. The patient was placed on oxygen via nasal cannula, blood pressure monitoring and pulse oximetry. The patient was sent for a chest x-ray while here in the emergency department, findings above. Rechecked the patient, findings and plan explained to the patient, who consents to admission. Discussed the patient with Dr. Mijares, who will admit the patient to a monitored bed for further observation, evaluation, and treatment. Impression & Plan Medical Decision Making: This is a pleasant 52 year old male with long history of tobacco use and recent clinical diagnosis of likely underlying COPD who presents with persistent dyspnea, wheeze, cough, hypoxia, representing failure of outpatient therapy for COPD exacerbation. Although there was a brief interruption of his prednisone use, the patient has otherwise been on prednisone since the , and doxycycline for several days. Exam today is consistent with COPD exacerbation without focal findings, and there is no consolidation on x-ray. Given the known underlying presence of PE in the COPD population, a d-dimer was run to exclude PE (given he is low risk by Wells criteria, a negative dimer essentially excludes this).Symptoms are mildly improved with aggressive nebulized medications in the ED, but the patient requires 3 L O2 to maintain a saturation >90%. He is now speaking in full sentences with normal work of breathing, but given his persistent symptoms, hypoxia, and need for likely PFTs and continued nebulized medications and steroids, I will admit the patient for the above. It may be that he is chronicallyhypoxic. At this time, symptoms have responded well, the patient is not requiring CPAP, and I believe he is stable for admission to the floor. Diagnosis: 1. COPD exacerbation 2. Acute hypoxemia 3. Tobacco abuse 4. URI I, Derek Recinos, am serving as a scribe at 5:53 PM on 02/20/2012 to document services personally performed by Dr. Lewis, based on my observations and the provider's statements to me. León Recinos 02/20/2012 [facility] EMERGENCY DEPARTMENT Manjit Lewis MD 02/20/12 2225 Sarah Porter RN - 02/20/2012 5:44 PM CDT Alert and oriented x 3, here with , saw Primary care this afternoon and referred to ED. documented in this encounter Miscellaneous Notes Plan of Care - Deisy Vigil RN - 02/23/2012 1:23 PM CDT Problem: IP GENERAL POC-ADULT,OB,BEHAVIORAL FVCPM Goal: Individualization/Patient-Specific Goal (Adult,OB,Behavioral The patient and/or their congressional representative will achieve their patient-specific goals related to the plan of care. The patient-specific goals include: RD- Encouraged intake, snacks/supps prn. Outcome: Adequate for Discharge Date Met: 02/23/12 Patient Discharged to home with home medications, 1320, 02/23/2012 Plan of Care - Lillie Moses RN - 02/22/2012 10:42 PM CDT Problem: IP GENERAL POC-ADULT,OB,BEHAVIORAL FVCPM Goal: Individualization/Patient-Specific Goal (Adult,OB,Behavioral The patient and/or their congressional representative will achieve their patient-specific goals related to the plan of care. The patient-specific goals include: RD- Encouraged intake, snacks/supps prn. Outcome: Improving Pt denied pain, States SOB with exertion improving. Ambulating in hallways/room independently on room air, sating in low 90's. Lungs clear but diminished. Using IS. BS(+), BM yesterday. VSS. Hoping to d/c tomorrow Plan of Care - Kelly Decker - 02/22/2012 3:13 PM CDT Problem: IP GENERAL POC-ADULT,OB,BEHAVIORAL FVCPM Goal: Individualization/Patient-Specific Goal (Adult,OB,Behavioral The patient and/or their congressional representative will achieve their patient-specific goals related to the plan of care. The patient-specific goals include: RD- Encouraged intake, snacks/supps prn. Outcome: Improving Pt was up at start of shift. VSS and pt's O2 sat level is 91% on RA. Pt's IV is now saline lock withno pain/redness/swelling noted. Pt denies all pain. Pt was expecting to be discharged today and MD states this will happen tomorrow. Pt was disappointed and anxious to D/C. Teaching addressed with thispatient was COPD exacerbation, weaning off O2, importance of using medication and resting when having dyspnea, small frequent meals, smoking cessation and breathing techniques. Pt was accepting and eager during teaching. Plan of Care - Lillie Moses RN - 02/21/2012 10:23 PM CDT Problem: IP GENERAL POC-ADULT,OB,BEHAVIORAL FVCPM Goal: Individualization/Patient-Specific Goal (Adult,OB,Behavioral The patient and/or their congressional representative will achieve their patient-specific goals related to the plan of care. The patient-specific goals include: RD- Encouraged intake, snacks/supps prn. Outcome: Improving Pt states SOB improving, still slightly SOB with exertion, did ambulate in hallways often. Lungs diminished but clear. Sats in mid 90's on 2L nc. BS(+), tolerating diet. Anticipated d/c in tomorrow. Plan of Care - Ivelisse Glasgow RN - 02/21/2012 3:19 PM CDT Problem: IP GENERAL POC-ADULT,OB,BEHAVIORAL FVCPM Goal: Individualization/Patient-Specific Goal (Adult,OB,Behavioral The patient and/or their congressional representative will achieve their patient-specific goals related to the plan of care. The patient-specific goals include: RD- Encouraged intake, snacks/supps prn. Outcome: Improving O2 sats 95% on room air, cont's with scheduled neb txs and IV steroids. On po abx bactrim, anticipate d/c to home tomorrow if cont's to improve. Plan of Care - Shweta Boyd RN - 02/21/2012 6:50 AM CDT Problem: IP GENERAL POC-ADULT,OB,BEHAVIORAL FVCPM Goal: Individualization/Patient-Specific Goal (Adult,OB,Behavioral The patient and/or their congressional representative will achieve their patient-specific goals related to the plan of care. The patient-specific goals include: Outcome: No Change Pt. Continues on 3 liters oxygen, sats in the 90's. Pt. Up ad emelia. Lungs continue to be wheezy, receiving resp. Treatments. Plan of Care - Uriel Duval RN - 02/20/2012 10:27 PM CDT Problem: IP GENERAL POC-ADULT,OB,BEHAVIORAL FVCPM Goal: Individualization/Patient-Specific Goal (Adult,OB,Behavioral The patient and/or their congressional representative will achieve their patient-specific goals related to the plan of care. The patient-specific goals include: Outcome: No Change Admitted for COPD exacerbation. Here for oxygen, nebs, and IV steroids. Tolerating low fat and chol diet. Getting IVF. Requesting nicorette gum for nicotine replacement as pt is current smoker. 3L O2 sats in low 90's Pharmacy-Admission Medication History - Veronica Pete RPH - 02/20/2012 8:29 PM CDT Medication reconciliation complete. documented in this encounter Plan of Treatment Not on filedocumented as of this encounter Procedures Procedure Name Priority Date/Time Associated Comments Diagnosis PLATELET COUNT Routine 02/23/2012 7:00 AM Results for this CDT procedure are i n the results section. BASIC METABOLIC PANEL Routine 02/21/2012 6:50 AM Results for this CDT procedure are i n the results section. CBC WITH PLATELETS Routine 02/21/2012 6:50 AM Res ults for this CDT procedure are i n the results section. PLATELET COUNT Routine 02/20/2012 10:18 Results f or this PM CDT procedure are i n the results section. D DIMER QUANTITATIVE Routine 02/20/2012 7:10 PM R esults for this CDT procedure are i n the results section. XR CHEST 2 VIEWS STAT 02/20/2012 6:59 PM Resul ts for this CDT procedure are i n the results section. CBC WITH PLATELETS & STAT 02/20/2012 6:20 PM R esults for this DIFFERENTIAL CDT procedure are i n the results section. BASIC METABOLIC PANEL STAT 02/20/2012 6:20 PM Results for this CDT procedure are i n the results section. HIM ECG SCAN Routine 02/20/2012 documented in this encounter Results Platelet count (02/23/2012 7:00 AM CDT) P athologist Signature Platelet Count 214 150 - 450 [place] 10e9/L [facility] Specimen Anatomical Collection Method Collection Time Receive d Time (Source) Location / / Volume Laterality Blood specimen 02/23/2012 7:00 AM 012 7:10 (specimen) CDT AM CDT Zion Mijares MD LAB - BLOOD ORDERABLES Performing Organization Address City/State/ZIP Code Phon e Number [place] [address] [place], [place] [address] [facility] (ABNORMAL) CBC with platelets (02/21/2012 6:50 AM CDT) Analysis Performed At Patho logist Time Signature WBC 8.4 4.0 - 11.0 [place] 10e9/L [facility] RBC Count 4.17 (L) 4.4 - 5.9 [place] 10e12/L [facility] Hemoglobin 13.7 13.3 - [place] 17.7 g/dL [facility] Hematocrit 40.8 40.0 - [place] 53.0 % [facility] MCV 98 78 - 100 [place] fl [facility] MCH 32.9 26.5 - [facility] 33.0 pg [facility] MCHC 33.6 31.5 - [facility] 36.5 g/dL [facility] RDW 12.9 10.0 - [facility] 15.0 % [facility] Platelet Count 253 150 - 450 [place] 10e9/L [facility] Specimen Anatomical Collection Method Collection Time Receive d Time (Source) Location / / Volume Laterality Blood specimen 02/21/2012 6:50 AM 012 7:09 (specimen) CDT AM CDT Zion Mijares MD LAB - BLOOD ORDERABLES Performing Organization Address City/[facility] Code Phon e Abhilash Turner [facility] [address] [place], [place] [address] [facility] (ABNORMAL) Basic metabolic panel (02/21/2012 6:50 AM CDT) Analysis Performed At Patho logist Time Signature Sodium 137 133 - 144 [place] mmol/L [facility] Potassium 4.5 3.4 - 5.3 [place] mmol/L [facility] Chloride 100 94 - 109 [place] mmol/L [facility] Carbon Dioxide 27 20 - 32 [place] mmol/L [facility] Anion Gap 10 6 - 17 [place] mmol/L [facility] Glucose 149 (H) 60 - 99 [place] mg/dL [facility] Urea Nitrogen 13 7 - 30 [place] mg/dL [facility] Creatinine 0.64 (L) 0.66 - [place] 1.25 mg/dL [facility] GFR Estimate >90 >60 [place] mL/min/1.[address] LAB GFR Estimate If >90 >60 [place] Black mL/min/1.[address] [place] [address] LAB Calcium 8.6 8.5 - 10.4 [place] mg/dL [facility] Specimen Anatomical Collection Method Collection Time Receive d Time (Source) Location / / Volume Laterality Blood specimen 02/21/2012 6:50 AM 012 7:09 (specimen) CDT AM CDT Zion Mijares MD LAB - BLOOD ORDERABLES Performing Organization Address City/[facility] Phon e Abhilash Turner [facility] [address] [place], [place] [address] [facility] Platelet count (02/20/2012 10:18 PM CDT) P athologist Signature Platelet Count 273 150 - 450 [place] 10e9/L [facility] Specimen Anatomical Collection Method Collection Time Receive d Time (Source) Location / / Volume Laterality Blood specimen 02/20/2012 10:18 2 (specimen) PM CDT 10:35 PM CDT Zion Mijares MD LAB - BLOOD ORDERABLES Performing Organization Address City/[facility] Phon e Number [facility] [address] [place], [place] [address] [facility] D dimer quantitative (02/20/2012 7:10 PM CDT) athologist Signature D Dimer <0.2 0.0 - 0.50 [facility] ug/ml [facility] Specimen Anatomical Collection Method Collection Time Receive d Time (Source) Location / / Volume Laterality 02/20/2012 7:10 PM 2 7:19 CDT PM CDT Manjit Lewis MD LAB - BLOOD ORDERABLES Performing Organization Address City/[facility] Phon e Number [place] [address] [place], [place] [phone] [place] [address] LAB X-ray Chest 2 vws* (02/20/2012 6:59 PM CDT) Anatomical Region Laterality Modality Chest Other Specimen (Source) Anatomical Collection Method Collection Time Re ceived Time Location / / Volume Laterality 02/20/2012 6:59 PM CDT Impressions 02/20/2012 10:33 PM CDT CHEST TWO VIEWS Feb 20, 2012 7:00:00 PM HISTORY: Shortness of breath. COMPARISON: 08/05/2006. FINDINGS: Multiple old left rib fracture s which have healed since the prior exam. Heart and lungs remain negat flower. Manjit Lewis MD IMG DIAGNOSTIC IMAGING ORDER [facility] (ABNORMAL) Basic metabolic panel (02/20/2012 6:20 PM CDT) Analysis Performed At Patho logist Time Signature Sodium 135 133 - 144 [place] mmol/L [facility] Potassium 4.5 3.4 - 5.3 [place] mmol/L [facility] Chloride 97 94 - 109 [place] mmol/L [facility] Carbon Dioxide 27 20 - 32 [place] mmol/L [facility] Anion Gap 11 6 - 17 [place] mmol/L [facility] Glucose 108 (H) 60 - 99 [place] mg/dL [facility] Urea Nitrogen 19 7 - 30 [place] mg/dL [facility] Creatinine 0.61 (L) 0.66 - [place] 1.25 mg/dL [facility] GFR Estimate >90 >60 [place] mL/min/1.[address] LAB GFR Estimate If >90 >60 [place] Black mL/min/1.[address] [place] [address] LAB Calcium 9.5 8.5 - 10.4 [place] mg/dL [facility] Specimen Anatomical Collection Method Collection Time Receive d Time (Source) Location / / Volume Laterality Blood specimen 02/20/2012 6:20 PM 012 6:28 (specimen) CDT PM CDT Manjit Lewis MD LAB - BLOOD ORDERABLES Performing Organization Address City/State/ZIP Code Phon e Number M [facility] [address] [place] [address] [facility] (ABNORMAL) CBC with platelets differential (02/20/2012 6:20 PM CDT) [facility] Method Time Signature WBC 10.1 4.0 - [place] 11.0 [facility] 10e9/[facility] RBC Count 4.50 4.4 - 5.9 [place] 10e12/L [facility] Hemoglobin 15.2 13.3 - [facility] 17.7 g/dL [facility] Hematocrit 44.0 40.0 - [facility] 53.0 % [facility] MCV 98 78 - 100 [place] fl [facility] MCH 33.8 (H) 26.5 - [facility] 33.0 pg [facility] MCHC 34.5 31.5 - [facility] 36.5 g/dL [facility] RDW 12.7 10.0 - [facility] 15.0 % [facility] Platelet Count 269 150 - 450 [place] 10e9/L [facility] Diff Method Automated [facility] LAB % Neutrophils 75.3 (H) 40 - 75 % [facility] % Lymphocytes 13.4 (L) 20 - 48 % [facility] % Monocytes 10.7 0 - 12 % [facility] % Eosinophils 0.1 0 - 6 % [facility] % Basophils 0.1 0 - 2 % [facility] % Immature 0.4 0 - 0.4 % [place] Granulocytes [facility] Absolute 7.6 1.6 - 8.3 [place] Neutrophil 10e9/L [facility] Absolute 1.4 0.8 - 5.3 [place] Lymphocytes 10e9/L [facility] Absolute 1.1 0.0 - 1.3 [place] Monocytes 10e9/L [facility] Absolute 0.0 0.0 - 0.7 [place] Eosinophils 10e9/L [facility] Absolute 0.0 0.0 - 0.2 [place] Basophils 10e9/L [facility] Abs Immature 0.0 0 - 0.03 [place] Granulocytes 10e9/L [facility] Specimen Anatomical Collection Method Collection Time Receive d Time (Source) Location / / Volume Laterality Blood specimen 02/20/2012 6:20 PM 012 6:28 (specimen) CDT PM CDT Manjit Lewis MD LAB - BLOOD ORDERABLES Performing Organization Address City/State/ZIP Code Phon e Number M [facility] [address] [place], [place] [address] [facility] ECG - HIM ECG Scan (02/20/2012) Narrative This result has an attachment that is no t available. Manjit Lewis MD ECG ORDERABLES documented in this encounter Visit Diagnoses Diagnosis COPD exacerbation (H) Obstructive chronic bronchitis with exac erbation Hypoxia Hypoxemia Nicotine dependence Tobacco use disorder documented in this encounter Administered Medications Inactive Administered Medications - up to 3 most recent administrations Medication Order MAR Action Action Date Dose Rate Site 0.9 % sodium chloride IV Rate/Dose Verify 02/22/2012 8:01 AM 1,000 mL s 75 mL/hr solution CDT at 75 mL/hr, Intravenous, CONTINUOUS, Starting on Sun02/20/12 at 2115, Until Sun02/22/12 at 0827 Rate/Dose Verify 02/22/2012 6:00 AM CDT 1,000 mLs 75 mL/hr Rate/Dose Verify 02/22/2012 12:01 AM CDT 1,000 mLs 75 mL/hr albuterol nebulizer solution (UD) 2.5 mg Given 02/23/2012 8:27 AM CDT 2.5 mg 2.5 mg (3 mL), Nebulization, EVERY 6 HOURS, First dose on Sun02/20/12 at 2115 Given 02/23/2012 12:10 AM CDT 2.5 mg Given 02/22/2012 7:51 PM CDT 2.5 mg amLODIPine (NORVASC) tablet 10 mg Given 02/23/2012 8:10 AM CDT 10 mg 10 mg, Oral, DAILY, First dose on Sun02/21/12 at 0900 Given 02/22/2012 8:30 AM CDT 10 mg Given 02/21/2012 9:39 AM CDT 10 mg atenolol (TENORMIN) tablet 50 mg Given 02/23/2012 8:10 AM CDT 50 mg 50 mg, Oral, DAILY, First dose on Sun02/21/12 at 0900 Given 02/22/2012 8:30 AM CDT 50 mg Given 02/21/2012 9:39 AM CDT 50 mg enoxaparin (LOVENOX) injection 40 mg Given 02/22/2012 8:58 PM CDT 40 mg 40 mg, Subcutaneous, EVERY 24 HOURS, First dose on Sun02/20/12 at 2130, HOLD if platelet count falls below 50% of baseline and notify MD. Given 02/21/2012 9:14 PM CDT 40 mg Given 02/20/2012 9:41 PM CDT 40 mg Abdom inal Tissue fluticasone-salmeterol (ADVAIR) 250-50 Given 02/23/2012 8:28 AM CDT 1 puff MCG/DOSE diskus inhaler 1 puff 1 puff, Inhalation, EVERY 12 HOURS, First dose on Sun02/21/12 at 1000, *Do not use more frequently than twice daily.* Rinse mouth after use. Given 02/22/2012 7:51 PM CDT 1 puff Given 02/22/2012 7:44 AM CDT 1 puff ipratropium - albuterol 0.5 mg/2.5 mg/3 mL Given 02/20/2012 7:56 PM CDT 3 mLs (DUONEB) nebulizer solution 3 mL 3 mL, Nebulization, EVERY 20 MIN PRN, wheezing, shortness of breath / dyspnea, Starting on Sun02/20/12 at 1800, For 3 doses, For shortness of breath. Given 02/20/2012 6:31 PM CDT 3 mLs lisinopril (PRINIVIL,ZESTRIL) tablet 20 mg Given 02/23/2012 8:10 AM CDT 20 mg 20 mg, Oral, DAILY, First dose on Sun02/21/12 at 0900 Given 02/22/2012 8:29 AM CDT 20 mg Given 02/21/2012 9:38 AM CDT 20 mg methylprednisoLONE sodium succinate Given 02/23/2012 12:18 PM CD T 60 mg (Solu-MEDROL) injection 60 mg 60 mg, Intravenous, EVERY 6 HOURS, First dose on Sun02/21/12 at 0000, First dose now if not given in ED, or 6 hours after ED dose. Given 02/23/2012 6:08 AM CDT 60 mg Given 02/23/2012 12:11 AM CDT 60 mg predniSONE (DELTASONE) tablet 60 mg Given 02/20/2012 6:31 PM CDT 60 mg 60 mg, Oral, ONCE, On Sun02/20/12 at 1815, For 1 dose sodium chloride 0.9 % flush 3 mL Given 02/23/2012 6:08 AM CDT 3 mLs 3 mL, Intracatheter, EVERY 8 HOURS, First dose on Sun02/22/12 at 1200 Given 02/22/2012 8:58 PM CDT 3 mLs Given 02/22/2012 11:49 AM CDT 3 mLs sulfamethoxazole-trimethoprim (BACTRIM DS) Given 02/22 8:10 AM CDT 1 tablet 800-160 MG per tablet 1 tablet Routine, 1 tablet, Oral, 2 TIMES DAILY, First dose on Sun02/20/12 at 2115, For 14 doses Given 02/22/2012 8:58 PM CDT 1 tablet Given 02/22/2012 8:30 AM CDT 1 tablet zolpidem (AMBIEN) tablet 5 mg Given 02/22/2012 11:04 PM CDT 5 mg 5 mg, Oral, AT BEDTIME PRN, sleep, Starting on Sun02/21/12 at 1855 Given 02/21/2012 11:01 PM CDT 5 mg documented in this encounter Active and Recently Administered Medications Times are shown in CDT. Scheduled Medication Order 02/21/2012 02/22/2012 02/23/2012 albuterol nebulizer solution (UD) 2.5 mg (CANCELED) 02 01 (Given - Provider: Jose M Correa, RT)0315 (Canceled Entry - Provider: Jose M Correa RT)0803 (Given - Provider: Viviane Monaco, RT)0915 (Canceled Entry - Provider: Viviane Monaco RT)1411 (Given - Provider: Viviane Monaco RT) 0140 (Given - Provider: Jose M Correa RT)0741 (Given - Provider: Jo Hoffmann, RT)1345 (Given - Provider: Jo Hoffmann, RT)1951 (Given - Provider: Hattie Gonzalez, RT) 0010 (Given - Provider: Kimber Chew RN)0230 (Not Given - Provider: Jose M Correa RT - Reason: Patient/family refused)0827 (Given - Provider: Tahira Pierre RT) 3 mL = 2.5 mg, Nebulization, EVERY 6 HOURS, First dose on Sun02/20/12 at 2115 1726 (Canceled Entry - Provider: Lillie Moses RN)1941 (Given - Provider: Hattie Gonzalez RT) amLODIPine (NORVASC) tablet 10 mg (CANCELED) 0939 (Giv en - Provider: Adrienne Daley RN) 0830 (Given - Provider: Kelly Decker) 0810 (Given - Pro vider: Veronica Dimas LPN) 10 mg, Oral, DAILY, First dose on Sun02/21/12 at 0900 atenolol (TENORMIN) tablet 50 mg (CANCELED) 0939 (Give n - Provider: Adrienne Daley RN) 0830 (Given - Provider: Kelly Decker) 0810 (Given - Pro vider: Veronica Dimas LPN) 50 mg, Oral, DAILY, First dose on Sun02/21/12 at 0900 enoxaparin (LOVENOX) injection 40 mg (CANCELED) 2113 ( Given - Provider: Lillie Moses RN) 2057 (Given - Provider: Lillie Moses RN) 40 mg, Subcutaneous, EVERY 24 HOURS, Fir st dose on Sun02/20/12 at 2130, HOLD if platelet count falls below 50% of baseline and notify MD. fluticasone-salmeterol (ADVAIR) 250-50 MCG/DOSE diskus inhaler 1 puff 1158 (Given - Provider: Viviane Monaco, RT)1946 (Given - Provider: Hattie Gonzalez, RT) 0744 (Given - Provider: Jo Hoffmann, RT)1950 (Given - Provider: Hattie Gonzalez RT) 08 (Given - Provider: Tahira Pierre, RT) 1 puff, Inhalation, EVERY 12 HOURS, Firs t dose on Sun02/21/12 at 1000, *Do not use more frequently than twice daily.* Rinse mouth after use. lisinopril (PRINIVIL,ZESTRIL) tablet 20 mg (CANCELED) 0938 (Given - Provider: Adrienne Daley RN) 0829 (Given - Provider: Kelly Decker) 0810 (Given - Provider: Veronica Dimas LPN) 20 mg, Oral, DAILY, First dose on Sun02/21/12 at 0900 methylprednisoLONE sodium succinate (Solu-MEDROL) inje ction 60 mg (CANCELED) 0550 (Given - Provider: Shweta Boyd RN)1247 (Given - Provider: Kelly Decker)1750 (Given - Provider: Lillie Moses RN) 0003 (Given - Provider: Breanna Howard, RICHY)0642 (Given - Provider: Breanna Howard, RICHY)1146 (Given - Provider: Kelly Decker)1802 (Given - Provider: Lillie Moses RN) 0011 (Given - Provider: Kimber Chew, RICHY)0608 (Given - Provider: Kimber Chew, RICHY)1218 (Given - Provider: Deisy Vigil RN) 60 mg, Intravenous, EVERY 6 HOURS, First dose on Sun02/21/12 at 0000, First dose now if not given in ED, or 6 hours after ED dose. nicotine (NICODERM CQ) 14 MG/24HR 1 patch 0928 (Hold - Provider: Kelly Decker - Reason: Patient/family refused) 1023 (Not Given - Provider: Deisy siddiqi RN - Reason: Patient/family refused) 1 patch, Transdermal, DAILY, First dose on Sun02/22/12 at 091 5, Dispose as HW-P sodium chloride 0.9 % flush 3 mL (CANCELED) 1149 (Given - Provider: Kelly Decker)2058 (Given - Provider: Lillie Moses RN) 0608 (Given - Provider: Kimber Chew RN) 3 mL, Intercatheter, EVERY 8 HOURS, First dose on Sun02/22/12 at 1200 sulfamethoxazole-trimethoprim (BACTRIM D S) 800-160 MG per tablet 1 tablet (CANCELED) 0939 (Given - Provider: Adrienne Daley RN)211 (Given - Provider: Lillie Moses RN) 0830 (Given - Provider: Kelly Decker)2058 (Given - Provider: Lillie Moses RN) 0810 (Given - Provider: ADAM Sapp) 1 tablet, Oral, 2 TIMES DAILY, First dose on Sun02/20/12 at 2115, For 14 doses Continuous Medication Order 02/21/2012 02/22/2012 02/23/2012 0.9 % sodium chloride IV solution (CANCELED) 0952 (New Bag - Provider: Ivelisse Glasgow RN)1400 (Rate/Dose Verify - Provider: Adrienne Daley RN)1539 (Rate/Dose Verify - Provider: Lillie Moses RN)2127 (New Bag - Provider: Lillie Moses RN) 0001 (Rate/Dose Verify - Provider: Zo Howard RN)0600 (Rate/Dose Verify - Provider: Charu Mccall LPN)0801 (Rate/Dose Verify - Provider: Elif Sutton LPN)0830 (Stopped - Provider: Kelly Decker) 1,000 mL, Intravenous, at 75 mL/hr, CONTINUOUS, Starting 02/19 at 2115 PRN Medication Order 02/21/2012 02/22/2012 02/23/2012 zolpidem (AMBIEN) tablet 5 mg (CANCELED) 2301 (Given - Provider: Lillie Msoes RN) 2304 (Given - Provider: Lillie Moses RN) 5 mg, Oral, AT BEDTIME PRN, sleep, Starting Sun02/21/12 at 1855 documented in this encounter Care Teams Trolley Wire Installer Relationship Specialty Start Date End Date Martinez Warner PCP - General 02/20/12 04/27/15 documented as of this encounter
--- OUTSIDE RECORDS SUMMARY | 2022-08-25 14:28 | XMS_ITS | Encounter Summary ---
:1960 Author Organization [place] Address [address] [facility] [place] [place] [address] Care Team Providers Name Role Phone Unavailable Primary Care Provider Unavailable Encounter Details Date Type Department Care Team Description 08/05/2006 Emergency room Pati Oliveira MD [facility]GENCY [facility]YS[facility] [address] [place] [address] (Wo rk) Social History Tobacco Use Types Packs/Day Years Used Date Never Assessed Sex Assigned at Date Recorded Not on file documented as of this encounter Progress Notes Pati Oliveira MD - 08/22/2006 2:28 PM CDT FINAL CHIEF COMPLAINT: Chest pain and shortness of breath. HISTORY OF PRESENT ILLNESS: This is a 46-year-old male who presents here with his . The patientstates he has been having a bad cold for the last 2-3 days. The patient states his cough is productive of green sputum. He denies any hematemesis. He has not taken his temperature, but has had symptoms of feeling hot and cold. Last night he was at a green party, it started raining, and when he went out hefell into a window hole. It was approximately seven feet. He said this was an accident; he was walking and just fell down. He landed on his feet and then fell on his buttocks. He denies loss of consciousness. He was able to get up and noticed immediately that he was having some left-sided chest pain. The patient went home and thought that maybe he had just bruised his chest, but he noticed that the pain has gotten progressively worse to the point that it is very painful for him to breathe. The patient admits to drinking yesterday, but denies losing consciousness. He states that the fall was an accident. This is a house that is actually under construction, and he fell accidentally. He denies any tra ben to the head, no trauma to his eyes or nose and denies any neck pain. The chest pain is located on the left side and is worse with deep breathing. His left arm hurts when he moves it, and it hurts him on the left side of the chest. He complains of left-sided abdominal pain. He denies any trauma to the lower extremities. He denies any cervical, thoracic or lumbar pain. No other complaints are voiced. PAST MEDICAL HISTORY: Hypertension. MEDICATIONS: None. SOCIAL HISTORY: The patient smokes and drinks alcohol, no illicit drug use. He is here with his . PAST SURGICAL HISTORY: None. FAMILY HISTORY: Negative. REVIEW OF SYSTEMS: As noted above. All others have been reviewed and are negative. PHYSICAL EXAMINATION: VITAL SIGNS: Blood pressure 206/113, heart rate 129, respiratory rate 16, temperature 96.9 and satting 87% on room air. GENERAL: This is an ill-appearing male sitting in bed. He is cooperative and pleasant with the examination. He is having some splinting with breathing and appears in a significant amount of pain. There is no stridor and no drooling. He is able to speak in full sentences. HEENT: Head is normocephalic and atraumatic. Ears are bilaterally pearly white. There is no hemotympanum. Pupils are equal and reactive to light. Nose is patent. Throat - Uvula is midline. He has poor dentition. NECK: Trachea is midline. The neck is supple. There is no midline cervical tenderness to palpation. The patient is able to flex, extend and laterally rotate his neck without pain. CHEST: The patient hasdiffuse tenderness to palpation in the left chest wall area with no crepitus. There is no evidence of a flail chest. There is no paradoxical movement of the chest wall. CARDIOVASCULAR: S1/S2, no murmur appreciated. He is tachycardic in the 120 range. I do not appreciate any murmurs. Rhythm is regular.LUNGS: He has coarse breath sounds bilaterally with crackles bilaterally. ABDOMEN: Tenderness to palpation in the left upper quadrant, no guarding, no rebound. EXTREMITIES: He has 2+ radial pulses and 2+ dorsalis pedis pulses. The patient has full range of motion of the bilateral wrists, bilateral elbows, bilateral shoulders, but has limited range of motion of the left upper extremity secondary to pain in the chest. The patient has full range of motion of his bilateral ankles, bilateral knees and bilateral hips. There is no cervical tenderness to palpation. The patient does have diffuse paravertebral thoracic and lumbar tenderness to palpation. He says palpation there reproduces the pain in his chest. PSYCHIATRIC: He is oriented x3. NEUROLOGIC: Cranial nerves II-XII are intact. Strength is 5/5 in the upper extremities and 5/5 in the lower extremities. SKIN: There is no ecchymosis, no petechiae and no purpura. LABORATORY DATA: White blood cell count is 10.9, hemoglobin 17.6, hematocrit 41.7, platelets 185, neutrophils 76. Sodium is 138, potassium 2.8, chloride 101, bicarbonate 27. Anion gap is 11, glucose 97, ethanol less than 0.01. Liver function tests reveal an AST which is slightly elevated at 65. EKG shows the patient to have a sinus tachycardia, a ventricular rate of 115, NJ interval 176, QRS 92 and QTC 428, a Q-wave in lead III, otherwise no acute abnormalities. Sputum culture is pending. ABGs showa pH of 7.43, pCO2 of 31, pO2 of 48, bicarbonate of 20 on room air; these are consistent with the patient being hypoxic. A chest x-ray reveals the patient has multiple rib fractures on the left, but noassociated pneumothorax. Thoracic spine reveals no compression fracture. Lumbar spine reveals again no acute fracture. CT of the chest and abdomen reveals the patient to have fractures of ribs 4 through 8, no pneumothorax, a possible infection consolidation and no intra-abdominal injury. Urine shows alarge amount of blood With greater than 182 RBC/hpf. EMERGENCY DEPARTMENT COURSE: Two IVs were established, and the patient was placed on pulse oximetry, cardiac and blood pressure monitors. He was given one liter of normal saline. He was given morphinefor pain. Subsequently the morphine did help, but with any movement the patient's pain was progressively worse; and therefore he was given Dilaudid. He was placed on a non-rebreather mask. He was started on Zosyn for possible aspiration. On repeat evaluation the patient stated his pain was better. He was able to speak in full sentences. He was protecting his airway. I informed him of the results of the CT and the need for admission, and he agreed with this. I discussed admission with Dr. Liriano. The patient was admitted to the ICU in stable but guarded condition. CLINICAL IMPRESSION: This is a 46-year-old male who presents complaining of a three-day history of a productive cough with no hematemesis. Yesterday at a green party he accidentally fell and landed on his left side with no loss of consciousness. He has become progressively more short of breath. On examination he is ill-appearing with a significant amount of pain. We started him on Zosyn to treat possible aspiration pneumonia, and he will need to have significant pain control because of his multiple rib fractures. There was no pneumothorax seen and no intra-abdominal injuries seen. EMERGENCY DEPARTMENT DIAGNOSES: 1. Left rib fractures 4, 5, 6, 7 and 8, status post fall. 2. Hypoxia. 3. Bronchitis. 4. Hypertension. PLAN: He is admitted in guarded condition. CRITICAL CARE TIME: 37 minutes. Electronically signed on 08/22/2006 14:28 by PATI OLIVEIRA MD MT: [id number] Name: STEVE GUTIERREZ MRN: [id number] Account: [id number] : 1960 Visit Date: 08/05/2006 Document: [id number] cc: Scott Liriano MD documented in this encounter Plan of Treatment Not on filedocumented as of this encounter Visit Diagnoses Not on filedocumented in this encounter
--- OUTSIDE RECORDS SUMMARY | 2022-08-25 14:28 | XMS_ITS | Encounter Summary ---
:1960 Author Organization [place] Address [address] [place] [address] Care Team Providers Name Role Phone Unavailable Primary Care Provider Unavailable Encounter Details Date Type Department Care Team Description 08/05/2006 Discharge Summary [facility] Liset Short M D (Piping Supervisor) Urgent Care [facility] [address] [id number] [phone] Social History Tobacco Use Types Packs/Day Years Used Date Never Assessed Sex Assigned at Date Recorded Not on file documented as of this encounter Progress Notes Her Liset - 09/04/2006 12:50 AM CDT FINAL DISCHARGE DIAGNOSES: 1. Left lower lobe pneumonia. 2. Traumatic fall with multiple left rib fractures. 3. Uncontrolled hypertension. BRIEF HISTORY: A 46-year-old gentleman who presented here with chest pain and shortness of breath after falling yesterday in a new construction basement hole for an ingress window in the bedroom. The height was 4-5 feet and he fell through the hole injuring his left chest wall. He denied any head or neck injuries or loss of consciousness. Since that has happened, he started having severe left-sided chest wall pain and difficulty taking deep breaths because of it. He denied any hemoptysis. No loss of consciousness. He does report that he has been having a productive cough for the past 3-4 days. He was a heavy smoker and smokes about 1 to 1 1/2 packs per day. He reports drinking mainly for social occasion and has had no chronic alcohol dependence issues. No prior commitments, treatments or withdrawals. He does have some chronic hypertension that which is not treated. He has stopped his blood pressure medications for several years and was trying dietary treatment. Please refer to Dr. Liriano's H&P for the rest of the history and physical exam. HOSPITAL COURSE: 1. Left lower lobe pneumonia. He was admitted and was notably hypoxic. Chest x- ray did demonstrate a significant infiltrate in the left lower lobe region consistent with a pneumonia. This was corroborated with a chest CT. On the CT, there were some emphysematous changes in the lung with some blebs abutting the mediastinum. He was started on Zosyn given his possible alcohol history. Pulmonary toileting was instituted. He was monitored closely in intensive care unit for the first part of his hospitalstay. On the day of discharge, he was actually doing quite well. Ambulatory sats were in the high 80s. I had thought at one time that he night have needed home O2 short-term therapy, but at this time probably not. He is fairly comfortable on room air while he is at rest. In the interim, he was converted over to p.o. Augmentin to complete an additional 7 days. Guaifenesin was added to help with expectoration. 2. Left lower rib fractures. Traumatic after his fall, multiple levels including the 5th, 6th, 7th and 8th ribs posterolaterally. He was started on morphine as well as Vicodin for break-throughpain. I did convey to him that he will probably be quite sore for the next several weeks. No furthersurgical indication was needed. No obvious pneumothorax. He was given a work note to return with light duties on the 08/27 for an additional 2 weeks. Thereafter, no restrictions after 09/03. 3. Uncontro lled hypertension. He had been on chronic antihypertensives for a while but took himself off. He wasstarted initially on atenolol 50 mg p.o. daily but this was not enough. His diastolics continued to run in the 110s and systolics in the 170s. This was increased to 100 mg. Norvasc was also added at 10mg p.o. daily and did improve his blood pressure somewhat to the 130s. However, during his last 2 hospitalization stay, his blood pressure remained consistently above 160 and diastolics in the 100s to 1teens. Lisinopril 10 mg was added at the time of discharge. His does have a blood pressure cuffand that he can use to monitor his blood pressure. He was advised to maybe hold his antihypertensives and call his primary MD or the ER if his blood pressure was low. Otherwise, continue a good record of blood pressure readings and follow up with primary MD within 1 week for reassessment of his blood pressure medication needs. A big component of his hypertension is exacerbation with his left rib fractures. DISCHARGE MEDICATIONS: Guaifenesin 600 mg p.o. b.i.d., atenolol 100 mg p.o. daily, Augmentin 875 mgp.o. b.i.d. for 7 days, Combivent inhaler 2 puffs q.i.d. for 7 days then p.r.n. thereafter, lisinopril 10 mg p.o. daily, nicotine patch, senna 2 tabs p.o. daily for constipation and Norvasc 10 mg p.o. daily. Pneumovax given this admission. DISPOSITION: Discharged to home in a stable condition. At this time, not a candidate for home O2. Recommend continuing incentive spirometry at home and to limit his activities to ADLs for the next week. Follow up with primary MD in 1 week. Electronically signed on 09/04/2006 00:50 by LISET SHORT MD MT: [id number] Name: STEVE GUTIERREZ Account: [id number] : 1960 Admit Date: Discharge Date: 08/11/2006 Document: [id number] documented in this encounter Plan of Treatment Not on filedocumented as of this encounter Visit Diagnoses Not on filedocumented in this encounter
--- OUTSIDE RECORDS SUMMARY | 2022-08-25 14:28 | XMS_ITS | Encounter Summary ---
:1960 Author Organization [place] Address [facility] [place] [address] Care Team Providers Name Role Phone Unavailable Primary Care Provider Unavailable Encounter Details Date Type Department Care Team Description 08/05/2006 Historic Results INTERFACED REPORT Interface, Andrew rao MD Social History Tobacco Use Types Packs/Day Years Used Date Never Assessed Sex Assigned at Date Recorded Not on file documented as of this encounter Plan of Treatment Not on filedocumented as of this encounter Procedures Procedure Name Priority Date/Time Associated Diagnosis Comme nts EKG 12 LEAD Routine 08/05/2006 5:03 PM Results f or this CDT procedure are i n the results section . documented in this encounter Results EKG 12 LEAD (08/05/2006 5:03 PM CDT) Component Value Ref Range Test Analysis Performed Pathologis t Method Time At Signature Ventricular Rate 115 BPM RADIOLOGY RESULTS Atrial Rate 115 BPM RADIOLOGY RESULTS AR Interval 176 ms RADIOLOGY RESULTS QRS Duration 92 ms RADIOLOGY RESULTS QT 310 ms RADIOLOGY RESULTS QTc 428 ms RADIOLOGY RESULTS P [place] -19 degrees RADIOLOGY RESULTS R AXIS -19 degrees RADIOLOGY RESULTS T [place] -16 degrees RADIOLOGY RESULTS Interpretation AGE AND GENDER SPECIFIC ECG ANALYSIS RADIOLOGY ECG Sinus tachycardia RESULTS Inferior infarct , age undetermined Abnormal ECG Unconfirmed report - interpretation of this ECG is compute r generated - see medical record for final interpretation Specimen Anatomical Collection Method Collection Time Receive d Time (Source) Location / / Volume Laterality 08/05/2006 5:03 PM 6 CDT 10:30 AM CDT Transcripton Taiwo TAN ECG ORDERABLES Performing Organization Address City/State/ZIP Code Phon e Number RADIOLOGY RESULTS documented in this encounter Visit Diagnoses Not on filedocumented in this encounter
--- OUTSIDE RECORDS SUMMARY | 2022-08-25 14:28 | XMS_ITS | Encounter Summary ---
:1960 Author Organization [place] Address [address] [facility] [place] [address] Care Team Providers Name Role Phone Unavailable Primary Care Provider Unavailable Encounter Details Date Type Department Care Team Description 08/07/2006 Historic Notes INTERFACED REPORT Interface, Transcript onMD Social History Tobacco Use Types Packs/Day Years Used Date Never Assessed Sex Assigned at Date Recorded Not on file documented as of this encounter Progress Notes Interface, Licensed Loan Officer - 02/06/2011 10:54 PM CDT Substance Use Tobacco Use <R> Tobacco Use - Currently uses tobacco Alcohol Use <R> History of Alcohol Use - Yes Alcohol Type - Beer Alcohol Frequency - Two to three times a week Alcohol Amount - 7 - 9 drinks Length of Alcohol Use - Years of alcohol use, was sober x 10 years, resumed drinking 2002 after sister's Date of Last Alcohol Use - Date alcohol last used, 07/1706 Alcohol Withdrawal Pattern - pt states none Attempts to Quit Alcohol - Alcoholic Anonymous; Pt with past hx outpt CD RX 1992 Readiness to Quit - Ready to quit alcohol use Review of Systems Mental Health <R> Mental Health Problems - No Signatures Emani Smith ([employer]) Author: - Substance Use Entered: - Substance Use, Review of Systems Interface, Licensed Loan Officer - 02/06/2011 10:54 PM CDT Patient Status Patient Status Physical status - Stable (s/s of potential complications absent or manageable) Psychosocial status - Stable Discharge Planning Discharge From [facility] Patient Care Unit - Med Surg 3 PCU Phone Number - Discharge To - Home Method of discharge - Wheel Chair Transportation - Private Discharge Information Discharge Information Valuables returned - Valuables returned Discharge information - Discharge instructions reviewed with pt/family/so; Prescriptions given Accompanied by - Parent Mode of Travel - Wheelchair Medications and Prescriptions Medications and Prescriptions Medications and Prescriptions - Prescriptions sent to pharmacy Support Services Support Services Is home care recommended? - No Other Services arranged - Yes Type of other services - Pt to f/u with AA on d/c to maintain sobriety. Special Care Needs and Instructions Diet Instructions - Regular diet Activity Instructions - Continue walking at home. May return to work on 08/20/06 with a 20 pound lifting restriction. Also do incentive spirometer every 1-2 hours for 10-15 repetitions. Who patient should call - Primary Dr. Is patient going home with IV Catheter? - No Follow Up Care When to see physician - In one week Signatures Emani Smith ([facility]) Author: - Discharge Planning, Support Services Entered: - Discharge Planning, Support Services BOB NEWBERRY (RN) Entered: - Patient Status, Discharge Planning, Discharge Information, Medications and Prescriptions, Special Care Needs and Instructions, Follow Up Care Interface, Licensed Loan Officer - 02/06/2011 10:54 PM CDT sw D: Meeting with pt per MD order 08/06. Pt refuses to consider a relapse program. States this is a wake up call for him about his smoking addiction and intermittent drinking. He intends to stop drinking and continue attending AA. Pt urged to consider increased use of AA meetings. A: Pt is remorseful about the substance abuse, though does not see his periodic use as a problem. He is motivated to stop it, however, in light of the fall leading to the ICU admission. P: Pt urged to stop drinking and f/u with AA as above. [phone] [Signature] Author:Emani Smith ([facility]) [Signed 09:50] documented in this encounter Plan of Treatment Not on filedocumented as of this encounter Visit Diagnoses Not on filedocumented in this encounter
--- OUTSIDE RECORDS SUMMARY | 2022-08-25 14:28 | XMS_ITS | Encounter Summary ---
:1960 Author Organization [facility] Address [address] [facility] [place] [address] Care Team Providers Name Role Phone Unavailable Primary Care Provider Unavailable Encounter Details Date Type Department Care Team Description 08/05/2006 Admission H&P [facility] Du Liriano (Manager Of Administration) Hospitalists MD [place]alva [address] [place] [id number] [phone] (Wo rk) Social History Tobacco Use Types Packs/Day Years Used Date Never Assessed Sex Assigned at Date Recorded Not on file documented as of this encounter Progress Notes Du Liriano - 08/06/2006 12:38 AM CDT PRELIMINARY CHIEF COMPLAINT: Chest pain and shortness of breath. HISTORY OF PRESENT ILLNESS: A 46-year-old man who fell yesterday in a new construction basement hole for any ingress window in a bedroom. The height was 4-5 feet and he fell through the hole injuring his left chest wall. Denies any head or neck injury, denies any loss of consciousness. Since that this happened he started having severe left chest wall pain and difficulty breathing because of the pain, he could not take a deep breath. Denies any hemoptysis. Denies any neck pain or headache. Denies any other injury. Also, he has had 3-4 days history of a productive cough which he is calling a cold, associated with fever. He was still active and that did not necessitate bed rest. He is a heavy smoker, smokes 1 to 1-1/2 packs per day, he also drinks 2-3 times a week and drinks 6-8 beers every time. Yesterday had 5 beers prior to his fall. PAST MEDICAL HISTORY: 1. Chronic hypertension, patient has stopped taking his medication. There is no clear reason why. He has had hypertension for years. 2. History of musculoskeletal back pain. MEDICATIONS: Takes Advil p.r.n. ALLERGIES: Did not report any drug allergies. FAMILY HISTORY: Father had lung cancer and of lung cancer, sister had breast cancer. SOCIAL HISTORY: The patient is . 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 He smokes 1 pack a day, used tosmoke 1-1/2 pack a day of cigarettes. Denies any drug use. Drinks alcohol on a regular basis 2-3 times a week 6-8 beers every time he drinks. He has been in alcoholism treatment once in 1993, has not had alcohol withdrawal, seizure or DTS per his report. REVIEW OF SYSTEMS CONSTITUTIONAL: He has had fever and chills and felt a cold type of symptom for the last 3-4 days. Denied weight loss, denied other symptoms. CARDIOVASCULAR: Has chronic hypertension; however, he is noncompliant with medication. He denies any chest pain, any dyspnea on exertion. RESPIRATORY: Report to history of present illness. GASTROINTESTINAL: Denies symptoms, denies any melena or blood in stool or abdominal pain, nausea, vomiting. GENITOURINARY: Denies symptoms. MUSCULOSKELETAL: Report to HPI. Also has a history of back pain. ENDOCRINE: Denies symptoms. ALLERGY/IMMUNOLOGY: Denies symptoms. HEENT: Denies symptoms. NEUROLOGY: Denies seizure, or history of stroke or other neurological symptoms. PSYCHOLOGICAL: Denies any mental illness or depression or anxiety. PHYSICAL EXAMINATION: VITAL SIGNS: Blood pressure is 201/133. His pulse is 133, his temperature is 99.2, respiratory rate28, satting at 93% on supplemental oxygen. GENERAL: Not in acute distress. HEENT: PERRLA. Dry oropharynx. NECK: Head and neck exam normal with supple neck. No tenderness over the cervical, thoracic or the lumbar spine. There is normal range of movement in his neck, there is no neck vein distension. There is no neck lymphadenopathy. There is no carotid bruits. HEART: Tachycardic S1, S2 with no murmur, no pericardial rub, no S3 or S4. LUNGS: Decreased breath sounds and rales in the left lower lobe, otherwise there is a scattered rhonchi, no wheezes. ABDOMEN: Soft, no hepatosplenomegaly, normal bowel sounds. EXTREMITIES: No pedal edema. Normal pulses bilateral and equal. SKIN: No rash, wound or ulcer. NEUROLOGIC: Nonfocal with normal cranial nerve and motor power. LABORATORY DATA: CT scan of the chest shows a left moderate infiltrate and multiple rib fracture 5th through 8th, so 5, 6, 7 and 8 ribs are fractured. Thoracic and lumbar spine showed DJD. These x-rays were read by me. The official radiology report are pending. ABGs, pH of .43 pCO2 of 31 pO2 of 48, 83% sats. Liver function, AST is 64, ALT is 32, creatinine is 0.8, potassium 3.6, WBC 10.9, wxatieygzd51.6, and platelets 185. IMPRESSION AND PLAN: A 46-year-old man with: 1. Left lower lobe pneumonia and hypoxia. 2. Multiple rib fracture with a probable contusion on the left. 3. Alcohol withdrawal. 4. Uncontrolled hypertension and poor compliance. PLAN: 1. Will admit him to the hospital. 2. Will start him on Zosyn IV, especially with his history of alcoholism that would be a better coverage than ceftriaxone and Zithromax. 3. Will use morphine IV 3-6 mg q.2 hour p.r.n. for pain and Vicodin p.o. p.r.n. 4. We will staff counselor him on smoking cessation as he has already started and start him on nicotine replacement. 5. Will keep her on O2 supplement to keep his O2 sat above 92%. 6. Will start alcohol withdrawal protocol as the patient is clearly having some symptoms consistentwith withdrawal and which is complicating his uncontrolled hypertension. 7. Will start atenolol 50 mg p.o. daily and Enalapril p.r.n. IV if his blood pressure is more than 200 systolic or 110 diastolic. 8. Will get a chemical dependency counseling for his alcohol abuse. DU LIRIANO MD MT: [id number] Name: STEVE GUTIERREZ MRN: [id number] Account: [id number] : 1960 Admitted: [id number] Document: [id number] documented in this encounter Plan of Treatment Not on filedocumented as of this encounter Visit Diagnoses Not on filedocumented in this encounter
--- OUTSIDE RECORDS SUMMARY | 2022-08-25 14:28 | XMS_ITS | Encounter Summary ---
:1960 Author Organization [facility] Address [address] 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 B/P at 0030 167/106, HR- 86. Catapres 100 mcg given with good results. Rechecked BP 146/93. Pt. resting comfortably at this time. 0430 vitals- BP 161/105. Another 100 mcg Catapres given. Upon recheck BP, pt continues to be hypertensive, is asymptomatic. Pt c/o inreased pain with coughing and deep breathing, Morphine Sulfate 4mg IV given. Pt. states, Pain is better. At 0630 increased activity noted. ETOH withdrawal protocol score 4. Gave 1 mg IV ativan. Pt in bed watching TV. Recheck BP 165/115. Pt. having no c/o RADER, no N/V, A&O x3. Will continue to monitor and pass on to day nurse. [Signature] Author:Viviane Matute) [Signed 07:16] documented in this encounter Plan of Treatment Not on filedocumented as of this encounter Visit Diagnoses Not on filedocumented in this encounter
--- OUTSIDE RECORDS SUMMARY | 2022-08-25 14:29 | XMS_ITS ---
:1960 Author Care Team Providers Name Role Phone Danish Espinoza Primary Care Provider Unavailable Allergies None recorded. Medications Name Status Start Date Stop Date ? ? albuterol sulfate HFA 90 mcg/actuation aerosol inhaler Active ? Not available INHALE 2 PUFFS EVERY 4 HOURS NEEDED amoxicillin 875 mg-potassium clavulanate 125 mg tablet Active ? Not available atenolol 25 mg tablet Active ? Not availa ble budesonide 0.5 mg/2 mL suspension for nebulization Active ? Not available Creon 6,000-19,000-30,000 unit capsule,delayed release Active ? Not available fluconazole 200 mg tablet Active ? Not av ailable TAKE 2 PILLS ON THE FIRST DAY. AND THEN 1 PILL DAILY FOR 13 DAY S. folic acid 1 mg tablet Active ? Not avail able ipratropium 0.5 mg-albuterol 3 mg (2.5 mg base)/3 mL Active ? Not available nebulization soln lisinopril 20 mg tablet Active ? Not avai lable omeprazole 40 mg capsule,delayed release Active ? Not available oxycodone 5 mg tablet Active ? Not availa ble oxycodone-acetaminophen 5 mg-325 mg tablet Active ? Not available Take 1 tablet every 6 hours by oral route. potassium chloride ER 10 mEq tablet,extended release Active ? Not available tamsulosin 0.4 mg capsule Active ? Not av ailable thiamine HCl (vitamin B1) 100 mg tablet Active ? Not available Trelegy Ellipta 100 mcg-62.5 mcg-25 mcg powder for Active ? Not available inhalation Problems None recorded. Procedures None recorded. Results Lab Results Date Name Specimen Result Interpretation Description Value Range Status Address ? 11/15/2021 Pathology, Skin ? No observation ? ? ? [facility] recorded. Laborat ory: [address], [place] Past Encounters 12/26/2021 Postoperative Pain; Basal Cell Carcinoma of Nose Danish Espinoza MD: [address], [place] [address], Ph. Social History None recorded. Vaccine List None recorded. Plan of Care Reminders Provider Appointments None recorded. ? ? Lab None recorded. ? ? Referral None recorded. ? ? Procedures None recorded. ? ? Surgeries None recorded. ? ? Imaging None recorded. ? ? Vitals None recorded.
== END 2022-08-25 14:19 | disposition home or self-care (01) ==
PROVIDERS: PCP Family Medicine; Visit Provider Family Medicine
DX: E43 Unspecified severe protein-calorie malnutrition (principal); K86.89 Other specified diseases of pancreas; R62.7 Adult failure to thrive; Z71.1 Person with feared health complaint in whom no diagnosis is made; J98.4 Other disorders of lung; R91.1 Solitary pulmonary nodule; R06.02 Shortness of breath; Z12.9 Encounter for screening for malignant neoplasm, site unspecified
CPT/HCPCS: 80053; 80061; 82150; 82607; 83690; 83735; 84443; 86304

== ENCOUNTER 2022-12-06 11:34 | Outpatient (CLI) | payer MEDICARE, SELFPAY ==
[2022-12-06 21:30] LABS: Albumin* 3.8 g/dL (3.3-5.0); Chloride* 103 mmol/L (96-114); Sodium* 141 mmol/L (135-149)
[2022-12-06 21:31] LABS: Potassium* 3.7 mmol/L (3.6-5.1)
[2022-12-06 21:33] LABS: Alkaline Phosphatase* 71 U/L (40-150); Aspartate Amino Transferase* 26 U/L (12-35); Bilirubin Total* 0.4 mg/dL (0.1-1.5); Blood Urea Nitrogen* 10 mg/dL (7-30); Carbon Dioxide* 33 mmol/L (20-32); Creatinine* 0.7 mg/dL (0.5-1.5); Estimated Glomerular Filt Rate 104 ml/min; Glucose* 116 mg/dL (60-115)
[2022-12-06 21:34] LABS: Alanine Aminotransferase* 15 U/L (4-50); Calcium* 9.7 mg/dL (8.4-10.6); Magnesium* 1.4 mg/dL (1.5-2.6)
[2022-12-06 22:04] LABS: TSH With Reflex to FT4* 0.374 uIU/mL (0.270-4.200)
== END 2022-12-06 11:35 | disposition home or self-care (01) ==
PROVIDERS: PCP Family Medicine; Visit Provider Family Medicine
DX: E43 Unspecified severe protein-calorie malnutrition (principal); I10 Essential (primary) hypertension; R62.7 Adult failure to thrive; R53.83 Other fatigue
CPT/HCPCS: 80053; 83735; 84443

== ENCOUNTER 2022-12-18 10:26 | Outpatient (CLI) | payer MEDICARE, SELFPAY ==
[2022-12-18 14:22] LABS: NT Pro B Type NatriureticPept* 213 pg/mL
== END 2022-12-18 10:27 | disposition home or self-care (01) ==
PROVIDERS: PCP Family Medicine; Visit Provider Family Medicine
DX: R06.02 Shortness of breath (principal)
CPT/HCPCS: 83880